=== PATIENT | male | born 1955 | race Caucasian/White ===

== ENCOUNTER 2020-06-28 19:23 | Emergency (ER) | payer MEDICARE, OTHER, SELFPAY ==
--- NOTE | 2020-06-28 19:32 | ED.EXTPRO ---
HPI - Extremity Problem General Chief complaint: Extremity Problem,Nontraumatic Stated complaint: SWOLLEN LEFT FOOT Time Seen by Provider: 06/28/20 19:42 Source: patient and RN notes reviewed Mode of arrival: ambulatory Limitations: no limitations History of Present Illness HPI Narrative: 65-year-old male with history of diabetes presents with concern for swollen, painful left foot. Reports 3-day history of symptoms. Reports today symptoms started he got a pedicure.. Reports he has been soaking the area and apple cider vinegar. MD Complaint: extremity pain and extremity swelling Related Data Home Medications Medication Instructions Recorded Confirmed calcium carbonate 600 mg calcium 600 mg PO DAILY 09/04/19 06/28/20 (1,500 mg) tablet wqpdqetcayh-uardvfwjl-ryz C-Mn 500 1 cap PO DAILY 09/04/19 06/28/20 mg-400 mg capsule multivitamin 1 tablet PO DAILY 09/04/19 06/28/20 cyanocobalamin (vitamin B-12) 1,000 mcg PO DAILY 09/05/19 06/28/20 1,000 mcg capsule diphenhydramine HCl 25 mg capsule 25 mg PO Q6H PRN 09/05/19 06/28/20 magnesium oxide-Mg AA chelate 300 1 cap PO DAILY 09/05/19 06/28/20 mg capsule sennosides 8.6 mg capsule 8.6 mg PO BID PRN 09/05/19 06/28/20 vitamin E (dl, acetate) 400 unit 400 unit PO DAILY 09/05/19 06/28/20 capsule naproxen sodium 220 mg tablet 220 mg PO Q12H PRN 12/19/19 06/28/20 Allergies Allergy/AdvReac Type Severity Reaction Status Date / Time No Known Allergies Allergy Verified 06/28/20 19:26 Review of Systems Review of Systems: Narrative: CONSTITUTIONAL: Denies malaise, chills, sweats, or fever. SKIN: Reports red, swollen, red, painful skin fifth digit of left foot and dorsal aspect of left foot MUSCULOSKELETAL: Reports painful left foot NEUROLOGIC: Denies numbness, weakness All systems reviewed & are unremarkable except as noted in HPI and below PMFSH Past Medical History Medical History (Updated 06/28/20 @ 19:51 by Najma Waldrop NP) Nocturia Rib pain on left side Vitamin B12 deficiency anemia Vitamin D deficiency, unspecified Family History Family History (Updated 06/10/19 @ 10:40 by DOCTOR UNKNOWN) Father Patient's father is , Onset Age: 79 Mother Family history of cardiovascular disease, Onset Age: 61 Social History Social History Smoking status: Never smoker Alcohol intake: current Gender identity (if verbalized by the patient): Male Comments At time of signature, agree with nursing past medical, surgical, social and family history. There is no relevant family history pertinent to the presenting complaint Exam Narrative: Exam Narrative: GENERAL: Well-appearing, well-nourished, and in no acute distress. HEAD: Normocephalic, atraumatic. EYES: PERRLA, conjunctivae clear NECK: Supple. CHEST: Speaks in full sentences. No respiratory distress. HEART: Regular rate and rhythm. Normal and equal peripheral pulses. EXTREMITIES: Left foot, digits have normal sensation, normal range of motion. 5/5 strength with digit flexion and extension. Normal sensation with sensitivity to light touch and pain. Distal pulses palpable and equal bilaterally, skin warm, dry, pink. Capillary refill less than 3 seconds. SKIN: Warm, dry, no rash. Fifth digit of left foot is erythematous, edematous, tender, erythema and edema extending to the dorsal aspect of the left foot. No open wounds are visible, however fifth digit is edematous and weeping is noted from between the fourth and fifth digits, skin is friable. NEURO: Alert and oriented x3. PSYCH: Normal mood and affect Course Course Emergency Course: Patient is aware of diagnosis, understands and agrees to treatment plan. Anticipatory guidance given. Patient agrees to follow-up as directed and is aware of reasons to seek care at the emergency department. Portions of this record may have been created with voice recognition software Vital Signs Vital signs: Vital Signs Temperature 99.6
[2020-06-28 19:37] VITALS: BP 130/80; PULSE 102; RESP 16; TEMP 37.6; O2SAT 98
== END 2020-06-28 19:57 | disposition home or self-care (01) ==
PROVIDERS: Emergency Provider Nurse Practitioner; PCP Family Medicine
DX: L03.116 Cellulitis of left lower limb (principal); D51.9 Vitamin B12 deficiency anemia, unspecified; E78.00 Pure hypercholesterolemia, unspecified; I10 Essential (primary) hypertension; K74.60 Unspecified cirrhosis of liver; K21.9 Gastro-esophageal reflux disease without esophagitis; M10.9 Gout, unspecified; E11.9 Type 2 diabetes mellitus without complications; E89.0 Postprocedural hypothyroidism
CPT/HCPCS: 99213; G0463

== ENCOUNTER 2020-07-03 08:46 | Outpatient (RCR) | payer MEDICARE, OTHER, SELFPAY ==
[2020-07-03 09:30] VITALS: BMI 38.2
--- NOTE | 2020-07-14 14:20 | PCWOUND ---
WOCNNOTE Patient called to cancel next appointment on 07-16-20 due to being on COVID isolation. he will call back to reschedule when isolation is lifted.
== END 2020-09-21 08:15 | disposition home or self-care (01) ==
LOC: ANHWOC 08:46
PROVIDERS: PCP Family Medicine; Visit Provider Family Medicine
DX: L03.116 Cellulitis of left lower limb (principal)
CPT/HCPCS: 99212; G0463

== ENCOUNTER 2021-01-21 10:36 | Outpatient (CLI) | payer MEDICARE, OTHER, SELFPAY ==
--- NOTE | 2021-01-21 10:46 | ECG_ITS ---
Measurements Intervals Marcus Rate: 77 P: AL: 0 QRS: -68 QRSD: 137 T: 7 QT: 398 QTc: 453 Interpretive Statements SINUS RHYTHM WITH FIRST DEGREE AV BLOCK LEFT AXIS DEVIATION RIGHT BUNDLE BRANCH BLOCK ABNORMAL ECG Electronically Signed On 01-21-2021 11:20:22 CDT by Emile Valverde D.O.
== END 2021-01-21 10:37 | disposition home or self-care (01) ==
LOC: ANHCARD 10:39
PROVIDERS: PCP Family Medicine; Visit Provider Family Medicine
DX: Z01.810 Encounter for preprocedural cardiovascular examination (principal); R94.31 Abnormal electrocardiogram [ECG] [EKG]
CPT/HCPCS: 93005

== ENCOUNTER 2022-01-13 12:54 | Outpatient (CLI) | payer MEDICARE, OTHER, SELFPAY ==
[2022-01-13 14:25] LABS: Anion Gap 7 mmol/L (8-16); Blood Urea Nitrogen 17 mg/dL (9-20); Calcium 9.1 mg/dL (8.4-10.2); Carbon Dioxide 28 mmol/L (22-30); Chloride 103 mmol/L (98-107); Estimated Glomerular Filt Rate > 60; Glucose 106 mg/dL (65-110); Sodium 138 mmol/L (137-145)
== END 2022-01-13 12:55 | disposition home or self-care (01) ==
LOC: ANHSURGERY 13:03
PROVIDERS: Anesthesiology; PCP Family Medicine; Visit Provider Surgery
DX: E11.9 Type 2 diabetes mellitus without complications (principal); Z01.818 Encounter for other preprocedural examination
CPT/HCPCS: 36415; 80048

== ENCOUNTER 2022-01-13 13:13 | Outpatient (CLI) | payer MEDICARE, OTHER, SELFPAY ==
[2022-01-13 14:04] LABS: Hematocrit 43.4 % (42.0-52.0); Hemoglobin 13.8 g/dL (14.0-18.0); Mean Corpuscular HGB Conc 31.8 g/dl (32-36); Mean Corpuscular Hemoglobin 27.1 pg (26-34); Mean Corpuscular Volume 85.3 fl (80-100); Mean Platelet Volume 9.6 fl (7.4-10.4); Platelet Count Result 239 k/mm3 (150-375); Red Blood Count 5.09 M/mm3 (4.6-6.20); Red Cell Distribution Width 15.3 % (11.5-14.5); White Blood Count 9.4 K/mm3 (4.5-10.0)
[2022-01-13 14:06] LABS: Add Urine Microscopic? NO; Appearance Urine Clear (Clear); Bilirubin Urine Negative (Negative); Blood Urine Negative (Negative); Color Urine Yellow (Yellow); Glucose Urine UA Negative (Negative); Ketones Urine Negative (Negative); Leukocyte Esterase Ur Negative LEU/UL (NEGATIVE); Nitrate Urine Negative (Negative); Protein Urine Negative (Negative); Specific Grav Ur 1.017 (1.001-1.035); Urobilinogen Urine Negative mg/dL (<2.0)
[2022-01-13 14:26] LABS: Alanine Aminotransferase 34 U/L (4-50); Albumin Level 4.3 g/dL (3.5-5.1); Alkaline Phosphatase 96 U/L (38-126); Aspartate Amino Transferase 40 U/L (17-59); Bilirubin,Total 0.6 mg/dL (0.2-1.3); Cholesterol 142 mg/dL (0-200); HDL Direct 25 mg/dL; Triglycerides 179 mg/dL (<150); Uric Acid 4.9 mg/dL (3.5-8.5)
[2022-01-13 14:38] LABS: LDL Cholesterol Direct 84 mg/dL
[2022-01-13 14:57] LABS: Prostate Specific Antigen 0.1 ng/mL (< OR = 4.0)
[2022-01-13 15:03] LABS: Iron 60 ug/dL (49-181)
[2022-01-13 15:05] LABS: Creatinine Urine 112.5 mg/dL
[2022-01-13 15:16] LABS: MALB Creatinine Ratio < 5.3 mg/g (0-30); Microalbumin Urine Random < 6.0 mg/L (0-16.7)
[2022-01-16 20:48] LABS: GGT 31 U/L (3-70)
[2022-01-18 12:08] LABS: Vitamin D 1,25 (OH)2 Total 44 pg/mL (18-72); Vitamin D2 1,25 (OH)2 <8 pg/mL; Vitamin D3 1,25 (OH)2 44 pg/mL
== END 2022-01-13 13:14 | disposition home or self-care (01) ==
LOC: ANHIMG 13:14 → ANHLAB 14:00
PROVIDERS: PCP Family Medicine; Visit Provider Family Medicine
DX: D51.9 Vitamin B12 deficiency anemia, unspecified (principal); E11.9 Type 2 diabetes mellitus without complications; G25.81 Restless legs syndrome; R94.5 Abnormal results of liver function studies; E78.2 Mixed hyperlipidemia; M1A.00X0 Idiopathic chronic gout, unspecified site, without tophus (tophi); E55.9 Vitamin D deficiency, unspecified; R35.1 Nocturia; E89.0 Postprocedural hypothyroidism
CPT/HCPCS: 36415; 80048; 80061; 80076; 81003; 82043; 82607; 82652; 82728; 82977; 83036; 83540; 84153; 84443; 84550; 85027

== ENCOUNTER 2022-01-19 00:59 | Day surgery (SDC) | payer MEDICARE, OTHER, SELFPAY ==
[2022-01-12 10:52] VITALS: BMI 39.6
--- NOTE | 2022-01-12 11:01 | PC.NURSE ---
Report to the Outpatient Waiting Room, entrance under the green pavilion located off [facility], at time _1100_ on date _01/19/22_. OR Time: __1 PM__. - You and your visitor will be asked a series of questions to screen for COVID 19 for your protection. - A mask is required within the hospital. One visitor will be allowed to accompany the patient into the hospital. Patients visitor will be instructed to remain with patient at all times or leave the building. We will allow the visitor to come back to the postoperative area when patient is ready. Preoperative COVID Testing Requirements: NONE Patients may have clear liquids (water, carbonated beverages, clear teas, apple juice) until 3 hours prior to surgery (1000 AM) with a maximum of 20 ounces. - No food from midnight until time of surgery Take the following medications with a SIP of water the morning of surgery: _LEVOTHYROXINE_ Medications to discontinue per DR. BASS - __CALL OFFICE REGARDING ASPIRIN__ Medications to discontinue per ANESTHESIA - ALL VITAMINS AND SUPPLEMENTS, 3 DAYS PRIOR TO SURGERY, Date to take last dose 01/15/22 Please no deodorant, or body powder the day of surgery. No jewelry (including any body piercings) or valuables the day of surgery, leave them at home. Please take a shower or bath the night before, or the morning of, surgery with an antibacterial soap. Wear comfortable, loose fitting clothing. - Jewelry must be removed prior to entering the operating room. Rings and piercings that are not removed may be cut off. - The hospital will not accept responsibility for valuables. - Please leave all valuables, including medications, at home the day of surgery. If you are going home after surgery, a licensed van driver helper must drive you home. - NO public transportation without another adult. - We recommend that an adult stay with you for 24 hours following discharge. - We also recommend that you do not drive, make important decision, drink alcoholic beverages, or take any drugs that were not prescribed by your health care provider for at least 24 hours after your discharge time. Follow any additional instructions given to you from your surgeon. Telephone instructions given to ____PT and asked if any additional questions and then verbalized understanding. Patient advised to call surgeon office or pre surgery nurse liaison [phone] if any additional questions.
--- NOTE | 2022-01-18 14:18 | WPDANESEPPF ---
Anes - Initial Pre Proc Eval Procedure: Operation Date: 01/19/22 13:00 Proposed Procedures p Excisional Biopsy Upper Back Mass - Zakia Herrera MD Date/Time: 01/18/22 14:18 Surgeon: Zakia Herrera MD Pre Op Diagnosis: upper back mass Patient Data Age: 66 Gender: M Height: 1.85 m Weight: 136.36 kg Allergies Allergy/AdvReac Type Severity Reaction Status Date / Time No Known Allergies Allergy Verified 01/12/22 10:46 Home Medications Medication Instructions Recorded Confirmed Type calcium carbonate 600 mg calcium 600 mg PO QAM 09/04/19 01/19/22 History (1,500 mg) tablet ojiflqlohgo-bjdcrtegs-bkn C-Mn 500 1 cap PO QAM 09/04/19 01/19/22 History mg-400 mg capsule multivitamin 1 tablet PO QAM 09/04/19 01/19/22 History cyanocobalamin (vitamin B-12) 1,000 mcg PO QAM 09/05/19 01/19/22 History 1,000 mcg capsule magnesium oxide-magnesium amino 1 cap PO DAILY 09/05/19 01/19/22 History acid chelate 300 mg capsule sennosides 8.6 mg capsule 8.6 mg PO BID PRN 09/05/19 01/19/22 History vitamin E (dl, acetate) 180 mg 400 unit PO QAM 09/05/19 01/19/22 History (400 unit) capsule pen needle, diabetic 32 gauge x #50 each 12/19/19 01/11/22 Rx 1/4 aspirin [Aspirin Low Dose] 81 mg PO HS 07/03/20 01/19/22 History blood sugar diagnostic #100 ea 12/29/20 01/11/22 Rx lancets #100 ea 12/29/20 01/11/22 Rx cholecalciferol (vitamin D3) 1,250 50,000 unit PO WEEKLY #12 cap 02/04/21 01/19/22 Rx mcg (50,000 unit) capsule metformin 500 mg tablet,extended 1,000 mg PO BID #360 tablet 02/10/21 01/19/22 Rx release 24 hr ropinirole 0.25 mg tablet 0.25 mg PO BID #60 tablet 06/22/21 01/19/22 Rx Mucinex 1,200 mg PO BID 01/12/22 01/19/22 History allopurinol 300 mg PO QAM 01/12/22 01/19/22 History levothyroxine 150 mcg PO QAM 01/12/22 01/19/22 History lisinopril-hydrochlorothiazide 1 tablet PO QAM 01/12/22 01/19/22 History pantoprazole 40 mg PO HS 01/12/22 01/19/22 History simvastatin 20 mg PO HS 01/12/22 01/19/22 History triamcinolone acetonide 1 applic TOPICAL BID PRN 01/12/22 01/19/22 History ferrous sulfate 325 mg (65 mg 325 mg PO DAILY 01/14/22 01/19/22 History iron) tablet,delayed release hydrocodone-acetaminophen 1 tablet PO Q6H PRN #10 tablet 01/19/22 Rx Patient hx anesthesia problems: none Family hx anesthesia problems: none Results Review: All pre-operative results and documents have been reviewed as part of the pre-operative evaluation. [facility] Past Medical History Medical History Acute non-recurrent maxillary sinusitis BMI 36.0-36.9,adult BMI 38.0-38.9,adult Body mass index (BMI) of 40.1 to 44.9 in adult Cellulitis of left foot COVID-19 (12/23/21) tested positive 12/27/2021 Eczema Encounter for preoperative assessment for noncoronary cardiac surgery Essential (primary) hypertension GERD (gastroesophageal reflux disease) Gout uric acid level is normal at 4.9 on 01/13/2022 With allopurinol Mixed hyperlipidemia total cholesterol 142, triglycerides 179, HDL 25 and LDL 84 on 01/13/2022. Nocturia PSA 0.1 on 01/13/2022. Postoperative hypothyroidism TSH therapeutic at 1.25 on 01/13/2022 Restless legs syndrome Iron 60 with ferritin 19.3 on 01/13/2022 Rib pain on left side Sebaceous cyst midline upper back, 2.5 cm Type 2 diabetes mellitus without complication, without long-term current use of insulin glucose 106 with hemoglobin A1c 7.0 And urine microalbumin ratio less than 5.3 on 01/13/2022. Vitamin B12 deficiency anemia 887 on 01/13/2022 With hemoglobin 13.8. Vitamin D deficiency, unspecified Surgical History Surgical History H/O cervical spine surgery H/O shoulder surgery H/O umbilical hernia repair History of cholecystectomy History of hemorrhoidectomy History of lumbar surgery History of thyroidectomy Family History Family History (Reviewed 01/19/22 @ 12:34 by Matthew Dhillon
[2022-01-19 11:19] VITALS: BP 152/92; PULSE 89; RESP 20; TEMP 36.5; O2SAT 98
--- NOTE | 2022-01-19 11:19 | WPDHPUPDATE1 ---
History and Physical Update Update Date/Time: 01/19/22 11:19 History and Physical has been reviewed, including an updated exam of the patient. There are NO changes in the patient's condition. Risks, benefits, and alternatives have been discussed and questions answered. Patient agrees to proceed with procedure.
[2022-01-19] MEDS: LACTATED RINGERS 1,000 ML 30 ML IV CONT (11:45)
[2022-01-19 11:47] LABS: Glucose Point of Care 144 mg/dl (65-105)
--- NOTE | 2022-01-19 12:34 | WPDANESEPPF ---
Anes - Initial Pre Proc Eval Procedure: Operation Date: 01/19/22 13:00 Proposed Procedures p Excisional Biopsy Upper Back Mass - Zakia Herrera MD Date/Time: 01/19/22 12:34 Surgeon: Zakia Herrera MD Pre Op Diagnosis: upper back mass Patient Data Age: 66 Gender: M Height: 1.85 m Weight: 137.2 kg Last Vital Signs Temp 36.5 C 01/19/22 11:19 Pulse 89 01/19/22 11:19 Resp 20 01/19/22 11:19 BP 152/92 H 01/19/22 11:19 Pulse Ox 98 01/19/22 11:19 Allergies Allergy/AdvReac Type Severity Reaction Status Date / Time No Known Allergies Allergy Verified 01/12/22 10:46 Home Medications Medication Instructions Recorded Confirmed Type calcium carbonate 600 mg calcium 600 mg PO QAM 09/04/19 01/19/22 History (1,500 mg) tablet ejxjgjdgdic-edvytqgng-gbw C-Mn 500 1 cap PO QAM 09/04/19 01/19/22 History mg-400 mg capsule multivitamin 1 tablet PO QAM 09/04/19 01/19/22 History cyanocobalamin (vitamin B-12) 1,000 mcg PO QAM 09/05/19 01/19/22 History 1,000 mcg capsule magnesium oxide-magnesium amino 1 cap PO DAILY 09/05/19 01/19/22 History acid chelate 300 mg capsule sennosides 8.6 mg capsule 8.6 mg PO BID PRN 09/05/19 01/19/22 History vitamin E (dl, acetate) 180 mg 400 unit PO QAM 09/05/19 01/19/22 History (400 unit) capsule pen needle, diabetic 32 gauge x #50 each 12/19/19 01/11/22 Rx 1/4 aspirin [Aspirin Low Dose] 81 mg PO HS 07/03/20 01/19/22 History blood sugar diagnostic #100 ea 12/29/20 01/11/22 Rx lancets #100 ea 12/29/20 01/11/22 Rx cholecalciferol (vitamin D3) 1,250 50,000 unit PO WEEKLY #12 cap 02/04/21 01/19/22 Rx mcg (50,000 unit) capsule metformin 500 mg tablet,extended 1,000 mg PO BID #360 tablet 02/10/21 01/19/22 Rx release 24 hr ropinirole 0.25 mg tablet 0.25 mg PO BID #60 tablet 06/22/21 01/19/22 Rx allopurinol 300 mg PO QAM 01/12/22 01/19/22 History guaifenesin [Mucinex] 1,200 mg PO BID 01/12/22 01/19/22 History levothyroxine 150 mcg PO QAM 01/12/22 01/19/22 History lisinopril-hydrochlorothiazide 1 tablet PO QAM 01/12/22 01/19/22 History pantoprazole 40 mg PO HS 01/12/22 01/19/22 History simvastatin 20 mg PO HS 01/12/22 01/19/22 History triamcinolone acetonide 1 applic TOPICAL BID PRN 01/12/22 01/19/22 History ferrous sulfate 325 mg (65 mg 325 mg PO DAILY 01/14/22 01/19/22 History iron) tablet,delayed release Laboratory Tests 01/19/22 11:45 POC Capillary Glucose 144 mg/dl H mg/dl (65-105) Patient hx anesthesia problems: none Family hx anesthesia problems: none Results Review: All pre-operative results and documents have been reviewed as part of the pre-operative evaluation. [facility] Past Medical History Medical History Acute non-recurrent maxillary sinusitis BMI 36.0-36.9,adult BMI 38.0-38.9,adult Body mass index (BMI) of 40.1 to 44.9 in adult Cellulitis of left foot COVID-19 (12/23/21) tested positive 12/27/2021 Eczema Encounter for preoperative assessment for noncoronary cardiac surgery Essential (primary) hypertension GERD (gastroesophageal reflux disease) Gout uric acid level is normal at 4.9 on 01/13/2022 With allopurinol Mixed hyperlipidemia total cholesterol 142, triglycerides 179, HDL 25 and LDL 84 on 01/13/2022. Nocturia PSA 0.1 on 01/13/2022. Postoperative hypothyroidism TSH therapeutic at 1.25 on 01/13/2022 Restless legs syndrome Iron 60 with ferritin 19.3 on 01/13/2022 Rib pain on left side Sebaceous cyst midline upper back, 2.5 cm Type 2 diabetes mellitus without complication, without long-term current use of insulin glucose 106 with hemoglobin A1c 7.0 And urine microalbumin ratio less than 5.3 on 01/13/2022. Vitamin B12 deficiency anemia 887 on 01/13/2022 With hemoglobin 13.8. Vitamin D deficiency, unspecified Surgical History Surgical History H/O cervical spine surgery H/O shoulder surgery H/O u
[2022-01-19] MEDS: ceFAZolin 3 GM/D5W 100 ML 100 ML IVPB (13:00)
--- NOTE | 2022-01-19 13:39 | W.PM.PROC2 ---
Procedure Note - Detailed Date of Procedure 01/19/22 Pre-op Diagnosis upper back mass Post-op Diagnosis Same Procedure Performed Excisional biopsy cystic mass mid upper back measuring approximately 3.5 x 3 cm Surgeon Zakia Herrera MD Anesthesia MAC and Local Indications 66-year-old male with growing upper back mass and tenderness over last few months Findings 3.5 x 3 cm cystic back mass most consistent with sebaceous cyst Description of Procedure The patient was taken to the operating room and placed in the supine position. After adequate induction of MAC anesthesia, the patient was prepped and draped in the normal sterile fashion. A time-out was then done to verify the patient's identity, as well as the procedure being performed. I began by localizing the area in and around this cystic mass in the mid upper back. Once locally anesthetized, I made a elliptical incision around this mass, taking a piece of dermis that looked like it had a tract to the cyst. I then took the incision down through the dermis into the subcutaneous tissue. The cystic mass was located within the subcutaneous tissue and was densely adhesed to the surrounding tissue. I was able to both bluntly and sharply dissect these adhesions away. I was then able to remove this cystic mass in full. The mass measured approximately 3.5 x 3 cm and was most consistent with a sebaceous cyst. The mass will be sent to pathology for further review. I then copiously irrigated the cavity. Hemostasis was noted and no other pathology was seen. I then closed the subcutaneous tissue with 3-0 Vicryl suture. The skin was closed with 4-0 Monocryl subcuticular suture. The patient tolerated the procedure well and will be sent to the recovery room in stable condition. Estimated Blood Loss 5 Drains No Packing No Pathology Yes Complications No immediate complications Condition Stable Disposition PACU
[2022-01-19 13:45] VITALS: BP 126/81; PULSE 84; RESP 16; O2SAT 96
[2022-01-19 13:49] LABS: Glucose Point of Care 125 mg/dl (65-105)
[2022-01-19 14:15] VITALS: BP 146/96; PULSE 80; RESP 16
== END 2022-01-19 14:56 | disposition home or self-care (01) ==
PROVIDERS: PCP Family Medicine; Visit Provider Surgery
PROC: (CPT 11406; principal; 2022-01-19 13:00)
DX: L72.0 Epidermal cyst (principal); E78.2 Mixed hyperlipidemia; I10 Essential (primary) hypertension; K21.9 Gastro-esophageal reflux disease without esophagitis; M10.9 Gout, unspecified; E89.0 Postprocedural hypothyroidism; G25.81 Restless legs syndrome; E11.9 Type 2 diabetes mellitus without complications; D51.3 Other dietary vitamin B12 deficiency anemia; E55.9 Vitamin D deficiency, unspecified; R35.1 Nocturia; Z86.16 Personal history of COVID-19; Z87.891 Personal history of nicotine dependence; E66.01 Morbid (severe) obesity due to excess calories; Z68.39 Body mass index [BMI] 39.0-39.9, adult; Z79.82 Long term (current) use of aspirin; Z79.84 Long term (current) use of oral hypoglycemic drugs
CPT/HCPCS: 11406; 12032; 82948; 88304; J0690; J2250; J2704; J3010; J7120

== ENCOUNTER 2023-01-23 12:27 | Outpatient (CLI) | payer MEDICARE, OTHER, SELFPAY ==
--- NOTE | ~2023-01-23 | CT_ITS ---
EXAMINATION: CT abdomen pelvis wo con DATE: 01/23/2023 13:13 INDICATION: Low back pain. History of renal stone. History of fatty liver. TECHNIQUE: Computed tomography (CT) of the abdomen and pelvis was performed without intravenous contr ast. Automated exposure control and iterative reconstruction technique were employed. Exam dose: 150 5.78 mGy-cm total exam DLP. COMPARISON: December 06, 2018 CT abdomen pelvis FINDINGS: The lung bases are clear of infiltrate or consolidation. Normal heart size. No pericardial or pleural effusion. Status post cholecystectomy. No hepatic, splenic, pancreatic, adrenal space-occupying mass lesion. St able approximately 2 cm right renal cyst. No urinary tract calculus or hydroureteronephrosis. The uri nary bladder is unremarkable. There is prostate enlargement and calcification. There is atherosclerotic calcification but normal caliber of the abdominal aorta. No intraperitoneal or retroperitoneal or pelvic mass lesion or adenopathy or ascites. Normal appendix. There are innumerable diverticula of the sigmoid and descending colon and to a lesser extent transver se colon; no CT evidence of diverticulitis. No bowel obstruction, bowel wall thickening, pneumatosis or intraperitoneal free air. Status post posterior and interbody spinal fusion at L4-S1. Diffuse idiopathic skeletal hyperostosis of the thoracolumbar spine. IMPRESSION: Status post cholecystectomy Normal appendix Diverticulosis of the colon; no evidence of diverticulitis Diffuse idiopathic skeletal hyperostosis of the thoracolumbar spine Interval posterior and interbody spinal fusion at L4-S1 since December 06, 2018 Reviewed, dictated and finalized at [facility]. Reviewed, dictated and finalized at [facility].
== END 2023-01-23 12:28 | disposition home or self-care (01) ==
LOC: ANHIMG 12:29
PROVIDERS: PCP Family Medicine; Visit Provider Family Medicine
DX: R94.5 Abnormal results of liver function studies (principal); M54.41 Lumbago with sciatica, right side; M54.42 Lumbago with sciatica, left side; Z90.49 Acquired absence of other specified parts of digestive tract; K57.30 Diverticulosis of large intestine without perforation or abscess without bleeding; Z98.1 Arthrodesis status
CPT/HCPCS: 74176

== ENCOUNTER 2023-02-17 00:49 | Day surgery (SDC) | payer MEDICARE, OTHER, SELFPAY ==
[2023-02-09 14:37] VITALS: BMI 39.4
[2023-02-17 08:20] VITALS: BMI 38.9
[2023-02-17 08:37] LABS: Glucose Point of Care 143 mg/dl (65-105)
[2023-02-17] MEDS: LACTATED RINGERS 1,000 ML 150 ML IV CONT (08:49)
--- NOTE | 2023-02-17 08:52 | WPDANESEPPF ---
Anes - Initial Pre Proc Eval Procedure: Operation Date: 02/17/23 09:30 Proposed Procedures p Esophagogastroduodenoscopy & Colonoscopy - Sawyer Aguila MD Date/Time: 02/17/23 08:52 Surgeon: Sawyer Aguila MD Pre Op Diagnosis: hx colon polyps, IBS-D, GERD Patient Data Age: 67 Gender: M Height: 1.85 m Weight: 133.8 kg Allergies Allergy/AdvReac Type Severity Reaction Status Date / Time No Known Allergies Allergy Verified 02/09/23 14:29 Home Medications Medication Instructions Recorded Confirmed Type calcium carbonate 600 mg calcium 1,200 mg PO QAM 09/04/19 02/09/23 History (1,500 mg) tablet multivitamin 1 tablet PO QAM 09/04/19 02/09/23 History cyanocobalamin (vitamin B-12) 1,000 mcg PO QAM 09/05/19 02/09/23 History 1,000 mcg capsule sennosides 8.6 mg capsule (senna) 8.6 mg PO BID PRN Constipation 09/05/19 02/09/23 History vitamin E (dl, acetate) 180 mg 400 unit PO QAM 09/05/19 02/09/23 History (400 unit) capsule pen needle, diabetic 32 gauge x #50 ea 12/19/19 02/09/23 Rx 11/02 (Novofine 32) aspirin 81 mg tablet,delayed 81 mg PO HS 07/03/20 02/09/23 History release (Jaya Low Dose Aspirin) blood sugar diagnostic (OneTouch #100 ea 12/29/20 02/09/23 Rx Ultra Blue Test Strip) lancets (OneTouch UltraSoft #100 ea 12/29/20 02/09/23 Rx Lancets) guaifenesin 1,200 mg tablet, 1,200 mg PO BID 01/12/22 02/09/23 History extended release 12 hr (Mucinex) cholecalciferol (vitamin D3) 1,250 50,000 unit PO WEEKLY #12 caps 06/27/22 02/09/23 Rx mcg (50,000 unit) capsule triamcinolone acetonide 0.5 % 1 applic topical BID PRN Dry Skin 07/06/22 02/09/23 Rx topical cream #60 grams pantoprazole 40 mg tablet,delayed 40 mg PO QAM #90 tabs 08/16/22 02/09/23 Rx release allopurinol 300 mg tablet 300 mg PO QAM #90 tabs 12/19/22 02/09/23 Rx levothyroxine 150 mcg tablet 150 mcg PO DAILY #90 tabs 12/21/22 02/09/23 Rx metformin 500 mg tablet,extended 1,000 mg PO BID #360 tabs 12/21/22 02/09/23 Rx release 24 hr simvastatin 20 mg tablet 20 mg PO HS #90 tabs 12/21/22 02/09/23 Rx lisinopril 40 mg tablet 40 mg PO DAILY #90 tabs 01/23/23 02/09/23 Rx tramadol 50 mg tablet 50 mg PO Q6H PRN pain #60 tabs 01/25/23 02/09/23 Rx sodium,potassium,mag sulfates 17.5 See Rx Instructions PO .COMPLEX 01/26/23 02/09/23 Rx gram-3.13 gram-1.6 gram oral soln #354 mL (Suprep Bowel Prep Kit) duloxetine 30 mg capsule,delayed 30 mg PO DAILY #90 caps 02/14/23 Rx release (Cymbalta) Laboratory Tests 02/17/23 08:35 POC Capillary Glucose 143 mg/dl H mg/dl (65-105) Patient hx anesthesia problems: none Family hx anesthesia problems: none Results Review: All pre-operative results and documents have been reviewed as part of the pre-operative evaluation. 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 COVID-19 (12/23/21) tested positive 12/27/2021 Eczema Encounter for preoperative assessment for noncoronary cardiac surgery Encounter for prostate cancer screening Essential (primary) hypertension GERD (gastroesophageal reflux disease) History of small area of Rushing's esophagitis on EGD on 03/03/2017. Gout uric acid level is normal at 4.9 on 01/13/2022 With allopurinol Irritable bowel syndrome with diarrhea Mixed hyperlipidemia total cholesterol 142, triglycerides 179, HDL 25 and LDL 84 on 01/13/2022. Cholesterol 146, HDL 38, triglycerides 155, LDL 83 with AST 57 and ALT 82 on 01/27/2023. Morbid obesity with BMI of 40.0-44.9, adult Nocturia PSA 0.1 on 01/13/2022. Postoperative hypothyroidism TSH therapeutic at 1.25 on 01/13/2022. thyroidectomy for goit
--- NOTE | 2023-02-17 09:01 | PM.HPGS ---
History of Present Illness History of Present Illness Consent: Risks, benefits, and alternatives have been discussed and questions answered. Patient agrees to proceed with procedure. Chief complaint: hx colon polyps, IBS-D, GERD Narrative: Teo Martinez is a 67 year old male Presents for colonoscopy an EGD. Patient states his been more than 10 years since last colonoscopy. He reports that he may have had colon polyps but is somewhat unsure about this. No old records are available for review. Additionally patient complains of ongoing acid reflux disease. He states this is very stable as long as he takes pantoprazole on a daily basis. He promptly notices regurgitation and heartburn if he misses a day of this medication. Patient referred today for endoscopy. Patient reports he has had many back and neck surgeries in the past. Review of Systems Review of Systems: Review of systems noncontributory. 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 COVID-19 (12/23/21) tested positive 12/27/2021 Eczema Encounter for preoperative assessment for noncoronary cardiac surgery Encounter for prostate cancer screening Essential (primary) hypertension GERD (gastroesophageal reflux disease) History of small area of Rushing's esophagitis on EGD on 03/03/2017. Gout uric acid level is normal at 4.9 on 01/13/2022 With allopurinol Irritable bowel syndrome with diarrhea Mixed hyperlipidemia total cholesterol 142, triglycerides 179, HDL 25 and LDL 84 on 01/13/2022. Cholesterol 146, HDL 38, triglycerides 155, LDL 83 with AST 57 and ALT 82 on 01/27/2023. Morbid obesity with BMI of 40.0-44.9, adult Nocturia PSA 0.1 on 01/13/2022. Postoperative hypothyroidism TSH therapeutic at 1.25 on 01/13/2022. thyroidectomy for goiter which was benign 08/12/2014. TSH 2.1 with free T4 1.5 on 01/27/2023. Rash Restless legs syndrome Iron 60 with ferritin 19.3 on 01/13/2022 Rib pain on left side Sebaceous cyst midline upper back, 2.5 cm Type 2 diabetes mellitus without complication, without long-term current use of insulin glucose 106 with hemoglobin A1c 7.0 And urine microalbumin ratio less than 5.3 on 01/13/2022. Glucose 172 with hemoglobin A1c 8.1 with microalbumin ratio of 1 on 01/27/2023. Vitamin B12 deficiency anemia 887 on 01/13/2022 With hemoglobin 13.8. Level normal at 901 with hemoglobin 14.9 on 01/27/2023. Vitamin D deficiency, unspecified Level normal at 30 on 01/27/2023. Surgical History Surgical History (Updated 02/02/22 @ 09:29 by Selvin Ernandez MA) H/O cervical spine surgery H/O excision of mass upper back mass 01/19/22 H/O shoulder surgery H/O umbilical hernia repair History of cholecystectomy History of hemorrhoidectomy History of lumbar surgery History of thyroidectomy Family History Family History Father Patient's father is , Onset Age: 79 Emphysema lung Hypertension Mother Family history of cardiovascular disease, Onset Age: 61 Acute myocardial infarction Social History Social History Smoking packs per day: 1 Smoking cigarettes per day: 20.0 Years smoked: 15 Smoking pack-years: 15.00 Smoking status: Former smoker Tobacco type: cigarettes Smoking end date: 10/30/76 Alcohol intake: current Alcohol use details: 2-4 PER MONTH Substance use: never Substance use type: does not use Lack of Transportation: No Lack of Food: Never True Current Housing: I Have Housing Concerned About Future Housing: No
--- NOTE | 2023-02-17 09:21 | SUR.OPER ---
EGD completed at 920 colonoscopy started at 0922
[2023-02-17 09:54] VITALS: BP 93/61; PULSE 73; RESP 21; O2SAT 94
[2023-02-17 10:04] VITALS: BP 96/64; PULSE 85; RESP 25; O2SAT 98
[2023-02-17 10:14] VITALS: BP 112/76; PULSE 77; RESP 19; O2SAT 99
== END 2023-02-17 10:26 | disposition home or self-care (01) ==
PROVIDERS: PCP Family Medicine; Visit Provider Internal Medicine Gastroenterology
PROC: 0DJ08ZZ Inspection of Upper Intestinal Tract, Via Natural or Artificial Opening Endoscopic (ICD-10-PCS; CPT 43235; principal; 2023-02-17 09:30)
DX: Z12.11 Encounter for screening for malignant neoplasm of colon (principal); K64.8 Other hemorrhoids; K57.30 Diverticulosis of large intestine without perforation or abscess without bleeding; D12.3 Benign neoplasm of transverse colon; D12.5 Benign neoplasm of sigmoid colon; K21.9 Gastro-esophageal reflux disease without esophagitis; K31.89 Other diseases of stomach and duodenum; E78.2 Mixed hyperlipidemia; E11.9 Type 2 diabetes mellitus without complications; E89.0 Postprocedural hypothyroidism; E55.9 Vitamin D deficiency, unspecified; D51.9 Vitamin B12 deficiency anemia, unspecified; K58.0 Irritable bowel syndrome with diarrhea; Z79.82 Long term (current) use of aspirin; Z79.84 Long term (current) use of oral hypoglycemic drugs; Z87.891 Personal history of nicotine dependence
CPT/HCPCS: 45385; 43239; 82948; 88305; J2704; J7120

== ENCOUNTER 2023-07-21 10:12 | Emergency (ER) | payer MEDICARE, OTHER, SELFPAY ==
[2023-07-21 10:21] VITALS: BP 152/79; PULSE 84; RESP 18; TEMP 36.5; O2SAT 100
--- NOTE | 2023-07-21 10:37 | ED.SKABFB ---
HPI - Skin/Abscess/Foreign Bdy General Chief complaint: Skin/Abscess/Foreign Body Stated complaint: Middle Finger Rt Hand Time Seen by Provider: 07/21/23 10:30 Source: patient and RN notes reviewed Mode of arrival: ambulatory Limitations: dementia History of Present Illness HPI narrative: 68-year-old male presents with concern for redness, swelling, tenderness to the distal 3rd digit of the right hand. Reports he noticed it about 3 days ago, his tried to drain it without success. MD complaint: other (Redness) Related Data Home Medications Medication Instructions Recorded Confirmed calcium carbonate 600 mg calcium 1,200 mg PO QAM 09/04/19 07/21/23 (1,500 mg) tablet multivitamin 1 tablet PO QAM 09/04/19 07/21/23 cyanocobalamin (vitamin B-12) 1,000 mcg PO QAM 09/05/19 07/21/23 1,000 mcg capsule sennosides 8.6 mg capsule (senna) 8.6 mg PO BID PRN Constipation 09/05/19 07/21/23 vitamin E (dl, acetate) 180 mg 400 unit PO QAM 09/05/19 07/21/23 (400 unit) capsule aspirin 81 mg tablet,delayed 81 mg PO HS 07/03/20 07/21/23 release (Jaya Low Dose Aspirin) Allergies Allergy/AdvReac Type Severity Reaction Status Date / Time No Known Allergies Allergy Verified 07/21/23 10:13 Review of Systems Review of Systems: CONSTITUTIONAL: Denies malaise, chills, sweats, or fever. SKIN: Reports redness, swelling, tenderness to the distal 3rd digit of the right hand. Denies purulent drainage, vesicles, bullae, numbness, pain beyond proportion MUSCULOSKELETAL: Denies joint pain or myalgia. NEUROLOGIC: Denies headache. 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 COVID-19 (12/23/21) tested positive 12/27/2021 Eczema Encounter for preoperative assessment for noncoronary cardiac surgery Encounter for prostate cancer screening Essential (primary) hypertension GERD (gastroesophageal reflux disease) History of small area of Rushing's esophagitis on EGD on 03/03/2017. EGD 02/17/2023 with 2 cm segment of Rushing's with biopsies taken. Gout uric acid level is normal at 4.9 on 01/13/2022 With allopurinol Irritable bowel syndrome with diarrhea Mixed hyperlipidemia total cholesterol 142, triglycerides 179, HDL 25 and LDL 84 on 01/13/2022. Cholesterol 146, HDL 38, triglycerides 155, LDL 83 with AST 57 and ALT 82 on 01/27/2023. Morbid obesity with BMI of 40.0-44.9, adult Nocturia PSA 0.1 on 01/13/2022. Postoperative hypothyroidism TSH therapeutic at 1.25 on 01/13/2022. thyroidectomy for goiter which was benign 08/12/2014. TSH 2.1 with free T4 1.5 on 01/27/2023. Rash Restless legs syndrome Iron 60 with ferritin 19.3 on 01/13/2022 Rib pain on left side Sebaceous cyst midline upper back, 2.5 cm Type 2 diabetes mellitus without complication, without long-term current use of insulin glucose 106 with hemoglobin A1c 7.0 And urine microalbumin ratio less than 5.3 on 01/13/2022. Glucose 172 with hemoglobin A1c 8.1 with microalbumin ratio of 1 on 01/27/2023. Vitamin B12 deficiency anemia 887 on 01/13/2022 With hemoglobin 13.8. Level normal at 901 with hemoglobin 14.9 on 01/27/2023. Vitamin D deficiency, unspecified Level normal at 30 on 01/27/2023. Surgical History Surgical History (Updated 02/02/22 @ 09:29 by Selvin Ernandez MA) H/O cervical spine surgery H/O excision of mass upper back mass 01/19/22 H/O shoulder surgery H/O umbilical hernia repair History of cholecystectomy History of hemorrhoidectomy History of lumbar surgery History of thyroidectomy Family History Family History (Reviewed 01/19/22
== END 2023-07-21 10:47 | disposition home or self-care (01) ==
PROVIDERS: Emergency Provider Nurse Practitioner; PCP Family Medicine
DX: L03.011 Cellulitis of right finger (principal); Z87.891 Personal history of nicotine dependence; K21.9 Gastro-esophageal reflux disease without esophagitis; M10.9 Gout, unspecified; E89.0 Postprocedural hypothyroidism; E78.2 Mixed hyperlipidemia; E66.01 Morbid (severe) obesity due to excess calories; Z68.26 Body mass index [BMI] 26.0-26.9, adult; G25.81 Restless legs syndrome; E11.9 Type 2 diabetes mellitus without complications; Z79.84 Long term (current) use of oral hypoglycemic drugs; D51.9 Vitamin B12 deficiency anemia, unspecified; E55.9 Vitamin D deficiency, unspecified; Z86.16 Personal history of COVID-19; Z79.82 Long term (current) use of aspirin
CPT/HCPCS: 10060; 99213; G0463

== ENCOUNTER 2023-08-16 11:11 | Outpatient (CLI) | payer MEDICARE, OTHER, SELFPAY ==
--- NOTE | 2023-08-16 11:24 | ECG_ITS ---
Measurements Intervals Coy Rate: 78 P: -33 RI: 185 QRS: -68 QRSD: 132 T: 4 QT: 402 QTc: 461 Interpretive Statements SINUS RHYTHM WITH FREQUENT VENTRICULAR PREMATURE COMPLEXES INTRAVENTRICULAR CONDUCTION DELAY [130+ ms QRS DURATION] CANNOT RULE OUT sEPTAL MYOCARDIAL INFARCTION , PROBABLY OLD [40+ ms Q WAVE IN V1/V2] CANNOT RULE OUT iNFERIOR MYOCARDIAL INFARCTION , PROBABLY OLD [40+ ms Q WAVE AND/OR ST/T ABNORMALITY IN II/aVF] ABNORMAL ECG COMPARED TO ECG 01/21/2021 10:59:03 INTRAVENTRICULAR CONDUCTION DELAY NOW PRESENT MYOCARDIAL INFARCT FINDING NOW PRESENT Electronically Signed On 08-16-2023 18:29:58 CDT by Curry Stewart M.D.
== END 2023-08-16 11:12 | disposition home or self-care (01) ==
PROVIDERS: PCP Family Medicine; Visit Provider Family Medicine
DX: R00.2 Palpitations (principal); I45.9 Conduction disorder, unspecified; I21.9 Acute myocardial infarction, unspecified
CPT/HCPCS: 93005

== ENCOUNTER 2024-10-27 16:17 | Emergency (ER) | payer MEDICARE, OTHER, SELFPAY ==
--- NOTE | ~2024-10-27 | XR_ITS ---
CHEST RADIOGRAPH, PA AND LATERAL CLINICAL HISTORY: cough . COMPARISON: 04/13/2014 TECHNIQUE: PA and lateral views of the chest. FINDINGS The cardiomediastinal silhouette is unremarkable. The lungs are clear. Visualized osseous structures and soft tissues are unremarkable. IMPRESSION: No focal infiltrate or effusion. Reviewed, dictated and finalized at location A. [employer]
[2024-10-27 16:20] VITALS: BP 136/68; PULSE 89; RESP 18; TEMP 36.8; O2SAT 96
--- NOTE | 2024-10-27 17:03 | ED_ITS ---
HPI - General Adult General Chief complaint: Upper Respiratory Infection Stated complaint: cough Time Seen by Provider: 10/27/24 16:51 History of Present Illness HPI narrative: This is a 69-year-old male presenting ED with cough. Patient was recently on a cruise. Afterwards he developed a persistent cough. It is dry. He has not had fevers chest pain or difficulty breathing. No nausea or vomiting. He does have some diarrhea. Related Data Home Medications ?Medication ?Instructions ?Recorded ?Confirmed ?Last Taken ?Type calcium carbonate 1,200 mg PO QAM 09/04/19 09/04/24 01/16/22 History multivitamin 1 tablet PO QAM 09/04/19 09/04/24 01/16/22 History cyanocobalamin (vitamin B-12) 1,000 mcg PO QAM 09/05/19 09/04/24 01/16/22 History 1,000 mcg capsule sennosides 8.6 mg capsule (senna) 8.6 mg PO BID PRN Constipation 09/05/19 09/04/24 01/16/22 History aspirin 81 mg tablet,delayed 81 mg PO HS 07/03/20 09/04/24 01/16/22 History release (Jaya Low Dose Aspirin) amlodipine 5 mg tablet 5 mg PO DAILY 02/05/24 09/04/24 Unknown History metoprolol succinate 25 mg 25 mg PO DAILY 02/05/24 09/04/24 Unknown History tablet,extended release 24 hr semaglutide 2 mg/dose (8 mg/3 mL) 2 mg subcut WEEKLY 09/04/24 09/04/24 Unknown History subcutaneous pen injector (Ozempic) Allergies Allergy/AdvReac Type Severity Reaction Status Date / Time No Known Allergies Allergy Verified 07/21/23 10:13 [facility] Past Medical History Medical History BMI 37.0-37.9, adult Low ferritin level (08/30/24) iron 81 with 19% saturation and ferritin 23 with goal greater than 75 on 08/30/2024. Screening for diabetic retinopathy no retinopathy on 08/20/2024. Obesity (BMI 30-39.9) Palpitation (~06/2023) Normal myocardial PET /CT scan 10/26/2023. ablation for ventricular arrhythmia December, with resolution of symptoms. At moderate risk for fall (~01/23/23) Irritable bowel syndrome with diarrhea Encounter for prostate cancer screening PSA 0.32 on 01/31/2024. 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 Rash Morbid obesity with BMI of 40.0-44.9, adult Gout uric acid level is normal at 4.9 on 01/13/2022 With allopurinol. Level normal at 5.0 on 08/12/2023. Sebaceous cyst midline upper back, 2.5 cm COVID-19 (12/23/21) tested positive 12/27/2021 Acute non-recurrent maxillary sinusitis Restless legs syndrome Iron 60 with ferritin 19.3 on 01/13/2022. Iron 81 with 19% saturation and ferritin 23 on 08/30/2024. Encounter for preoperative assessment for noncoronary cardiac surgery BMI 36.0-36.9,adult BMI 38.0-38.9,adult Eczema Cellulitis of left foot Nocturia PSA 0.1 on 01/13/2022. Vitamin D deficiency, unspecified Level normal at 30 on 01/27/2023. Vitamin B12 deficiency anemia 887 on 01/13/2022 With hemoglobin 13.8. Level normal at 901 with hemoglobin 14.9 on 01/27/2023. Level normal at 1148 with hemoglobin 14.9 on 01/31/2024. Level normal at 964 on 08/30/2024. Essential (primary) hypertension GERD (gastroesophageal reflux disease) History of small area of Rushing's esophagitis on EGD on 03/03/2017. EGD 02/17/2023 with 2 cm segment of Rushing's with biopsies taken. Mixed hyperlipidemia total cholesterol 142, triglycerides 179, HDL 25 and LDL 84 on 01/13/2022. Cholesterol 146, HDL 38, triglycerides 155, LDL 83 with AST 57 and ALT 82 on 01/27/2023. cholesterol 187, triglycerides 187, HDL 35, LDL 122 with ratio 5.3 on 01/31/2024. Cholesterol 93, triglycerides 125, HDL 31, LDL 41 with ratio 3.0 on 08/30/2024. Postoperative hypothyroidism TSH therapeutic at 1.25 on 01/13/2022. thyroidectomy for goiter which was benign 08/12/2014. TSH 2.1 with free T4 1.5 on 01/27/2023. Type 2 diabetes mellitus without complication, without long-term current use of insulin glucose 106 with hemoglobin A1c 7.0 And urine microalbumin ratio less than 5.3 on 01/13/2022. Glucose 172 with hemoglobin A1c 8.1 with microalbumin ratio of 1 on 01/27/2023. Glucose 149 with hemoglobin A1c 7.2 on 08/12/2023. Glucose 197 with hemoglobin A1c 9.0 with urine microalbumin ratio of 113 on 01/31/2024. Glucose 129 with hemoglobin A1c 6.4 and GFR 71 on 08/30/2024. Rib pain on left side Surgical History Surgical History H/O excision of mass upper back mass 01/19/22 History of cholecystectomy H/O cervical spine surgery H/O shoulder surgery H/O umbilical hernia repair History of hemorrhoidectomy History of thyroidectomy History of lumbar surgery Family History Family History Father Patient's father is , Onset Age: 79 Emphysema lung Hypertension Mother Family history of cardiovascular disease, Onset Age: 61 Acute myocardial infarction Social History Social History Smoking packs per day: 1 Smoking cigarettes per day: 20.0 Years smoked: 15 Smoking pack-years: 15.00 Smoking status: Former smoker Tobacco type: cigarettes Smoking end date: 10/30/76 Alcohol intake: current Alcohol use details: 2-4 PER MONTH Substance use: never Substance use type: does not use Lack of Transportation: No Lack of Food: Never True Current Housing: I Have Housing Concerned About Future Housing: No Difficulty Paying Gas/Electric Bills: No Difficulty Paying for Meds: No Currently Unemployed: No Education: High School Diploma/GED Difficulty w/ Childcare or Family Care: No Living arrangements: with family Occupation/Education: occupation 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 Gender identity (if verbalized by the patient): Male Spiritual care concerns: No Exam Narrative: APPEARANCE: No apparent distress. Head: atraumatic. EYES: EOMI, NOSE: Atraumatic NECK: Trachea midline RESPIRATORY: No increased rate of breathing, Speaking full sentences, scattered wheezing CARDIOVASCULAR: RRR, ABDOMINAL: Non-distended MUSCULOSKELETAl: No obvious deformities NEURO: Alert. Moving 4/4 extremities SKIN:: Warm, dry. Normal color PSYCHIATRIC: Normal affect Course Vital Signs Vital signs: Vital Signs Temperature 98.3 F 10/27/24 16:20 Pulse Rate 89 10/27/24 16:20 Respiratory Rate 18 10/27/24 16:20 Blood Pressure 136/68 10/27/24 16:20 Pulse Oximetry 96 10/27/24 16:20 Temperature 98.3 F 10/27/24 16:20 Pulse Rate 89 10/27/24 16:20 Respiratory Rate 18 10/27/24 16:20 Blood Pressure 136/68 10/27/24 16:20 Pulse Oximetry 96 10/27/24 16:20 Medical Decision Making MDM Narrative Medical decision making narrative: -Course: 69-year-old male presenting with cough after a cruise. Chest x-ray without evidence of pneumonia. viral swabs negative. Vital signs stable and he is well appearing overall. Does have slight expiratory wheezing on exam and was given a breathing treatment and a shot of steroids. He will be discharged on a course of doxycycline to cover atypical pneumonia. Patient will be discharged follow up primary care physician -DDX includes but is not limited to: Pneumonia, bronchitis, viral syndrome Vital Signs Vital Signs: Vital Signs Temperature 98.3 F 10/27/24 16:20 Pulse Rate 89 10/27/24 16:20 Respiratory Rate 18 10/27/24 16:20 Blood Pressure 136/68 10/27/24 16:20 Pulse Oximetry 96 10/27/24 16:20 Temperature 98.3 F 10/27/24 16:20 Pulse Rate 89 10/27/24 16:20 Respiratory Rate 18 10/27/24 16:20 Blood Pressure 136/68 10/27/24 16:20 Pulse Oximetry 96 10/27/24 16:20 Discharge Plan Discharge Clinical Impression: Upper respiratory infection Patient Disposition: Home, Self-Care Condition: Stable Instructions: Antibiotic Form, Cold Symptoms (ED) Additional Instructions: Please complete the antibiotics as instructed. Please follow-up with your primary care for if you develop worsening chest pain shortness of breath please return to ED for re-evaluation. Patient Language: Prydeinig Prescriptions: New doxycycline hyclate 100 mg capsule 100 mg PO DAILY Qty: 14 0RF No Action (DME) pen needle, diabetic [Novofine 32] 32 gauge x 1/4 needle See Rx Instructions .ROUTE .MEDSUPPLY Qty: 50 0RF Rx Instructions: use weekly with Ozempic (DME) OneTouch Ultra Blue Test Strip Strip See Rx Instructions .ROUTE .MEDSUPPLY Qty: 100 3RF Rx Instructions: checking blood sugar once daily (DME) lancets [OneTouch UltraSoft Lancets] Misc See Rx Instructions .ROUTE .MEDSUPPLY Qty: 100 3RF Rx Instructions: Checking Blood Sugar once daily lisinopril 40 mg tablet 40 mg PO DAILY Qty: 90 3RF amlodipine 5 mg tablet 5 mg PO DAILY Patient Comments: prescribed by center sales and service associate metoprolol succinate 25 mg tablet extended release 24 hr 25 mg PO DAILY Patient Comments: prescribed by center sales and service associate levothyroxine 150 mcg tablet 150 mcg PO DAILY Qty: 90 3RF ferrous sulfate 325 mg (65 mg iron) tablet,delayed release (DR/EC) 325 mg PO DAILY Qty: 90 3RF Ozempic 2 mg/dose (8 mg/3 mL) pen injector 2 mg subcut WEEKLY aspirin [Jaya Low Dose Aspirin] 81 mg Tablet,Delayed Release (Dr/Ec) 81 mg PO HS calcium carbonate 600 mg calcium (1,500 mg) tablet 1,200 mg PO QAM multivitamin Tablet 1 tablet PO QAM senna 8.6 mg capsule 8.6 mg PO BID PRN (Reason: Constipation) cyanocobalamin (vitamin B-12) 1,000 mcg capsule 1,000 mcg PO QAM allopurinol 300 mg tablet 300 mg PO QAM Qty: 90 3RF metformin 500 mg tablet extended release 24 hr 1,000 mg PO BID Qty: 360 3RF duloxetine [Cymbalta] 30 mg capsule,delayed release(DR/EC) 30 mg PO DAILY Qty: 90 3RF cholecalciferol (vitamin D3) 1,250 mcg (50,000 unit) capsule 50,000 unit PO WEEKLY Qty: 12 3RF Patient Comments: TAKES ON MONDAY pantoprazole 40 mg tablet,delayed release (DR/EC) 40 mg PO QAM Qty: 90 3RF ropinirole 0.25 mg tablet 0.25 mg PO BID Qty: 60 11RF triamcinolone acetonide 0.5 % cream 1 applic topical BID PRN (Reason: Dry Skin) Qty: 60 3RF Rx Instructions: apply to rash on extremities and trunk twice daily until clear but no longer than 2 weeks at a time Follow-up/Referrals: Dale Funes MD [Primary Care Provider] -
[2024-10-27 17:16] VITALS: PULSE 84; RESP 20
[2024-10-27] MEDS: IPRATROPIUM 0.5 MG/ALBUTEROL SULFATE 2.5 MG AMPUL.NEB 3 ML 6 ML INHALATION (17:16)
[2024-10-27 17:41] VITALS: PULSE 87; RESP 20
[2024-10-27 18:58] LABS: Influenza A QL RT-PCR Negative (Negative); Influenza B QL RT-PCR Negative (Negative); RSV RNA, RT-PCR Negative (Negative); SARS-CoV-2 RNA PCR Negative (Negative)
[2024-10-27] MEDS: guaiFENesin/DEXTROMETHORPHAN 10 ML UDC PO (19:11)
[2024-10-27] MEDS: dexAMETHasone SOD PHOS INJ 10 MG/ML 1 ML VIAL IM (19:11)
[2024-10-27 19:17] VITALS: BP 138/90; PULSE 82; RESP 20; TEMP 36.4; O2SAT 97
--- OUTSIDE RECORDS SUMMARY | 2024-11-03 20:13 | XMS_ITS | Continuity of Care Document ---
Author Organization [facility] Address [address] [place] [phone] Care Team Providers Care Information Developer Name Role Phone Dale Funes Primary Care Physician [phone] Encounter [facility] Financial Number [id number] Date(s): 09/06/24 - 09/06/24 [facility] [address] [phone] Discharge Disposition: Home or Self Care Attending Physician: Brandi Munguia DIRECTOR [employer] Allergies, Adverse Reactions, Alerts No Known Medication Allergies Assessment and Plan Future Appointments Appointment Date:09/12/2024 10:30:00 AM Scheduled Provider:Katie Munoz RD,LD,LINDSEY Location:[facility] Appointment Type:Intensive Behavioral Therapy, Follow-up Appointment Date:11/18/2024 01:00:00 PM Scheduled Provider: Location[facility] Appointment Type:Virtual Telephone Visit Appointment Date:02/25/2025 12:15:00 PM Scheduled Provider: Location:[facility] Appointment Type:[facility] EKG Appointment Date:02/25/2025 12:30:00 PM Scheduled Provider:Sushma Hurd NP Location:[facility] Appointment Type:HCS Follow Up Appointment Date:04/28/2025 12:00:00 PM Scheduled Provider:Raquel Velasquez MD Location[facility] Appointment Type:[facility] EP Established Patient Medications allopurinol 300 mg oral tablet 300 mg, 1 tablet(s), Oral, daily, 30 tablet(s), Tablet(s), 0 Start Date: 05/13/19 Status: Ordered amLODIPine 10 mg oral tablet 10 mg, 1 tablet(s), Oral, daily, 30 tablet(s), Tablet(s), 0 Start Date: 04/22/24 Status: Ordered aspirin 81 mg oral enteric coated tablet 81 mg, 1 tablet(s), Oral, daily, Tab EC, 0 Start Date: 05/13/19 Status: Ordered Benadryl 25 mg oral tablet 25 mg, 1 tablet(s), bid, 0 Start Date: 05/13/19 Status: Ordered Calcium Dispense as written Start Date: 05/13/19 Status: Ordered DULoxetine 30 mg ora capsule 30 mg, 1 capsule(s), Oral, daily, 30 capsule(s), Capsule(s), 0 Start Date: 10/16/23 Status: Ordered ergocalciferol 50,000 units oral capsule 50,000 unit(s), 1 capsule(s), Oral, q7days, 12 capsule(s), Capsule(s), 0 Start Date: 04/22/24 Status: Ordered lisinopril 40 mg oral tablet 1 tablet(s), Oral, daily, 90 tablet(s), 3, Route to Pharmacy Electronically, [id number], [id number], 185.4, cm, 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, Height, 138.1, kg, 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, Weight Start Date: 01/10/24 Status: Ordered metFORMIN 500 mg oral tablet, extended release 1,000 mg, 2 tablet(s), bid, 0 Start Date: 05/13/19 Status: Ordered Metoprolol Succinate ER 25 mg oral tablet, extended release 1 tablet(s), Oral, daily, 90 tablet(s), 2, Route to Pharmacy Electronically, [id number], [id number], 185.4, cm, 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/pharmacy #[id number], [id number], 185, cm, 05/09/24 14:21:00 CDT, Height, 128, kg, 07/25/24 14:49:00 CDT, Weight Start Date: 08/05/24 Status: Ordered pantoprazole 40 mg oral delayed release tablet 40 mg, 1 tablet(s), Oral, daily before breakfast, 30 tablet(s), 0 Start Date: 05/13/19 Status: Ordered rOPINIRole 0.25 mg oral tablet 0.25 mg, 1 tablet(s), Oral/Per Tube, bid, 0 Start Date: 10/16/23 Status: Ordered rosuvastatin 20 mg oral tablet 1 tablet(s), Oral, HS, 90 tablet(s), 3, Route to Pharmacy Electronically, [id number], [id number], 185, cm, 05/09/24 14:21:00 CDT, Height, 129, kg, 06/21/24 10:25:00 CDT, Weight Start Date: 06/25/24 Status: Ordered Senna 8.6 mg oral tablet mg, tablet(s), qpm, 0 Start Date: 05/13/19 Status: Ordered Synthroid 150 mcg (0.15 mg) oral tablet 150 mcg, 1 tablet(s), Oral, daily before breakfast, 30 tablet(s), Tablet(s), 0 Start Date: 05/13/19 Status: Ordered triamcinolone 0.025% cream 1 Applic, Topical, tid, Cream, 15 gm Start Date: 10/16/23 Status: Ordered Vitamin B12 1000 mcg oral tablet mcg, tablet(s), 0 Start Date: 05/13/19 Status: Ordered vitamin E 400 intl units oral capsule 400 unit(s), 1 capsule(s), Oral, daily, Capsule(s), 0 Start Date: 05/13/19 Status: Ordered Problem List Condition Confirmation Course Effective Dates Status Health St atus Informant Elevated coronary artery calcium score Confirmed Active Abnormal stress test Confirmed Active Carotid bruit Confirmed Active Chest pain Confirmed Active Diabetes Confirmed Active Ex-smoker Confirmed Active HLD (hyperlipidemia) Confirmed Active Mild HTN Confirmed Active PVCs (premature ventricular contractions) Confirmed Active Obesity Confirmed Active ZULEYKA (obstructive sleep apnea) Confirmed Active Advised about management of weight Confirmed Active Pre-operative exam Confirmed Active Snoring Confirmed Active Procedures Procedure Date Related Diagnosis Body Site Status Cystectomy 2021 Completed Back care 2020 Completed Gallbladder operation 2017 Com pleted Kidney stone analysis 2008 Com pleted Spinal fusion 2007 Completed Hemorrhoid operation 1999 Comp leted bilateral knee surgeries Completed bilateral shoulder surgeries Completed cholecystectomy Completed neck surgery Completed REMOVAL OF THYROID Comple jennifer Social History Social History Type Response Alcohol Current some day alc ohol user, 1-2 times per month Employment/School Retired Exercise Exercise duration: 0 . 1 Other 2, 3 Substance Abuse Never drug user Smoking Status Former smoker;Never; Tobacco Cessation Counseling Requested No; Stopped at age: 46; entered on: 08/21/23 Sex Sex Representation Male (finding) 1Does not exercise. 2PT HAS 4 CHILDREN 49,47,43,43 3Patient is and has 3 children ages: 44, 41 and 37. Note * Event Display: ROI_Correspondence * Event Display: Patient Provided Clipboard Authored Date: Cardiology Outpatient Note * Brandi Munguia DIRECTOR [employer]: PERFORM, MODIFY Event Display: Cardiology Office/Clinic Note Authored Date: Patient Information Name:LIBERTAD LORENZO Address: [address] [place] [phone] Sex:Male Date of :1955 Emergency Contact:TAY LORENZO Location: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 f/u 09/06 weight 276 ?? Had vomiting episode today after eating ham and beans with hot sauce Still struggling with eating good diet or exercising.?? His weight is down 3 pounds since starting.?? He is currently on 2 mg of Ozempic weekly tolerating very well.?? He has a dramatic decrease in his A1c however previously was 9 now is 6.4 percent ?? Recent LDL 41, triglycerides 125, HDL 31, cholesterol 93 Iron saturations low at 19 he tells me his primary risk working on getting iron approved. ?? He tells me he is undergoing cataract surgery in the next 2 weeks. ?? ZULEYKA discussed in detail as his primary is also requested to get a sleep study.?? He had 1 a number of years ago.?? He tells me he is primary told him he has to go in the hospital again for evaluationand he does not want to do this.?? Discussed importance of sleep apnea treatment and risk factors for treatment. ?? Given he is on now max dose of Ozempic and feeling well will follow-up in 3 months on November 18at 1 PM with virtual visit.?? Discussed when to call provider if needed ?? Review of Systems ?Constitutional ?Fever?No?.?Weight Gain?No?.?Weight Loss?No?.?Fatigue?No?.?Eyes ?Vision Change?No?.?Cardiovascular ?Chest Pain?No?.?Palpitations?No?. Short of breath at night?No. ??Orthopnea??No?.?Swelling in legs?No?.?Syncope (Fainting)?No?.?Dizziness?No?.?Shortness of breath with exertion?No?.?Respiratory ?SOB?No?. Snoring?No?.?Cough?No?.?Hemoptysis??No?.?Sputum?No?.?Gastrointestinal ?Abdominal pain??No?. ??Nausea?No?.?Diarrhea?No?.?Heart Burn?No?. Blood in stool?No?.? ENT ?Congestion?No?.?Sinus problems?No?. ?Musculoskeletal ?Joint pain?No?.?Muscle pain?No?.?Endocrine ?Thyroid disease?No?.?Diabetes?No?. ?Neurology ?Numbness?No?.?Headache?No?. Imbalance?No?.?Altered mental status?No?.?Hematology/Oncology ?Bleeding?No?.?Psychiatry ?Anxiety?No?.?Depression?No?.?Connective Tissue ?Lupus?No?. ?Skin ?Rash?No?.?Incontinence?No?.?Painful Urination?No?.?Blood in Urine?No?.? All 14 systems were reviewed with the patient in detail. For further details please refer to the HPI. Assessment/Plan ? #weight loss management BMI 40.1 rk: 128kg ??? initial 282.1 Weight today 276 Following with behavioral dietitian Continue Ozempic increase to 2mg 08/14 no significant symptoms Follow-up 11/18 @1p as scheduled or before and if needed ?? #h/o abnormal stress test, non-obstructive disease on CCTA, moderate to severe CAC -repeat CCTA with diffuse non-obstructive CAD, CAC 393 - + risk factors: HTN, HLD, obesity, former smoker, DM, known non-obstructive CAD -TTE reviewed -on ASA 81 mg and rosuvastatin ?? #DM2 a1c 9% 3 weeks ago Down to 6.4% -on metformin Repeat with PCP coming up will forward labs ?? # HTN -amlodipine to 10 mg/day- counseled re: edema -continue lisinopril 40 mg -can discontinue metoprolol- started for PVCs continue current meds DASH diet counseling ?? #Palpitations, PVCs -4% PVCs and 3 episodes v-tach -continue metoprolol XL 25 mg -CMR with nonspecific I/L enhancement; neg FDG PET -underwent PVC ablation in Nov 2023- doign well ?? # GERD -on PPI ?? #ZULEYKA Discussed in depth this patient has never used CPAP. Recommend further evaluation patient declines at this time ?? # HLD Recent LDL 41, triglycerides 125, HDL 31, cholesterol 93 -continue rosuvastatin at 20 mg ?? #. L carotid bruit -carotid dopplers reviewed -GDMT as above -on ASA and rosuvastatin with good control Problem List/Past Medical History Ongoing Abnormal stress test Advised about management of weight Carotid bruit Chest pain Diabetes Elevated coronary artery calcium score Ex-smoker HLD (hyperlipidemia) Mild HTN Obesity ZULEYKA (obstructive sleep apnea) Pre-operative exam PVCs (premature ventricular contractions) Snoring Historical No qualifying data Procedure/Surgical History ???Cystectomy (2021)???Back care (2020)???Gallbladder operation (2017)???Kidney stone analysis (2008)???Spinal fusion (2007)???Hemorrhoid operation (1999)???bilateral knee surgeries???bilateral shoulder surgeries???cholecystectomy???neck surgery???REMOVAL OF THYROID Medications allopurinol 300 mg oral tablet, 300 mg= 1 tablet(s), Oral, daily amLODIPine 10 mg oral tablet, 10 mg= 1 tablet(s), Oral, daily aspirin 81 mg oral enteric coated tablet, 81 mg= 1 tablet(s), Oral, daily Benadryl 25 mg oral tablet, 25 mg= 1 tablet(s), bid Calcium DULoxetine 30 mg ora capsule, 30 mg= 1 capsule(s), Oral, daily ergocalciferol 50,000 units oral capsule, 53860 unit(s)= 1 capsule(s), Oral, q7days lisinopril 40 mg oral tablet, 1 tablet(s), Oral, daily metFORMIN 500 mg oral tablet, extended release, 1000 mg= 2 tablet(s), bid Metoprolol Succinate ER 25 mg oral tablet, extended release, 1 tablet(s), Oral, daily Multivitamin oral tablet, 1 tablet(s), Oral, daily Ozempic 8 mg/3 mL (2 mg dose) subcutaneous solution, 2 mg, SubQ, weekly, 4 refills pantoprazole 40 mg oral delayed release tablet, 40 mg= 1 tablet(s), Oral, daily before breakfast rOPINIRole 0.25 mg oral tablet, 0.25 mg= 1 tablet(s), Oral/Per Tube, bid rosuvastatin 20 mg oral tablet, 1 tablet(s), Oral, HS Senna 8.6 mg oral tablet, qpm Synthroid 150 mcg (0.15 mg) oral tablet, 150 mcg= 1 tablet(s), Oral, daily before breakfast triamcinolone 0.025% cream, 1 Applic, Topical, tid Vitamin B12 1000 mcg oral tablet vitamin E 400 intl units oral capsule, 400 unit(s)= 1 capsule(s), Oral, daily Allergies No Known Medication Allergies Social History Alcohol Current some day alcohol user, 1-2 times per month, 08/21/2023 Employment/School Retired, 08/21/2023 Exercise Exercise duration: 0., 08/21/2023 Other Substance Abuse Never drug user, 08/21/2023 Tobacco Former smoker, Smokeless Tobacco use: Never. No Cessation Counseling. Stopped age 46 Years., 08/21/2023 Family History ?Mother ?Positive ?Hypertension ?Mother ?Positive ?Heart disease ?Mother ?Positive ?Diabetes ?Brother ?Positive ?Heart disease ? Voice to Text Technology Disclaimer This note may contain text inserted via Dragon or other voice to text assistive technology and professional development director, variances may occur. Patient Care team information Care Team Personnel Name: Brandi Munguia DIRECTOR [employer] Position: AMB [employer]/PA Member Role: Nurse Practitioner Address: [address] [place] [address] [place] Name: Dale Funes M.D. Position: ZZ FAX ONLY - MD NOT ON STAFF Member Role: Primary Care Physician Address: [address] [address]- Name: Raquel Velasquez MD Position: Physician - Cardiology Member Role: Mold Car Pusher Address: [address] [place] [address] [place] Name: Lg Johnson MD Position: Physician - Cardiology Member Role: Specialist Physician Address: [address] [place] [address] Name: Nora Grimes RN STAFF Position: AMB DIRECTOR [employer]/PA Member Role: Nurse Practitioner Address: [address] [place] [address] [place] Name: Sushma Hurd DIRECTOR [employer] Position: AMB DIRECT[employer]/PA Member Role: Nurse Practitioner Address: [address] [place] [address] [place] Care Team Related Persons Name: TAY LORENZO Name: SEAN LORENZO Insurance Providers Guarantor name: LIBERTAD LORENZO Health Plan Information #: 1 Payer: Medicare Member Number: [id number] Policy Number: NA Health Plan Information #: 2 Payer: Medicare Supplement Member Number: [id number] Policy Number: NA
--- OUTSIDE RECORDS SUMMARY | 2024-11-03 20:13 | XMS_ITS | Continuity of Care Document ---
Author Organization [facility] Address [address] [id number] Care Team Providers Care Marking Room Supervisor Name Role Phone LeslieElan olsonloco Bee Primary Care Physician Encounter [facility] Financial Number [id number] Date(s): 11/22/23 - 11/22/23 [facility] [address] [phone] Discharge Disposition: Home or Self Care Attending Physician: Greg Espinal MD Referring Physician: Raqule Velasquez MD Allergies, Adverse Reactions, Alerts No Known Medication Allergies Assessment and Plan Future Appointments Appointment Date:04/22/2024 12:00:00 PM Scheduled Provider:Raquel Velaqsuez MD Location:[facility] Appointment Type:[facility] EP Established Patient Medications Aleve 220 mg oral capsule 220 mg, 1 capsule(s), daily, 0 Start Date: 05/13/19 Status: Ordered allopurinol 300 mg oral tablet 300 mg, 1 tablet(s), Oral, daily, 30 tablet(s), Tablet(s), 0 Start Date: 05/13/19 Status: Ordered amLODIPine 10 mg oral tablet 10 mg, 1 tablet(s), Oral, daily, 90 tablet(s), Tablet(s), 3, 3, Route to Pharmacy Electronically, [facility]/pharmacy #[id number], [id number], 185.4, cm, 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, Height, 140.16, kg, 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, Weight Start Date: 10/16/23 Status: Ordered aspirin 81 mg oral enteric coated tablet 81 mg, 1 tablet(s), Oral, daily, Tab EC, 0 Start Date: 05/13/19 Status: Ordered Benadryl 25 mg oral tablet 25 mg, 1 tablet(s), bid, 0 Start Date: 05/13/19 Status: Ordered Calcium Dispense as written Start Date: 05/13/19 Status: Ordered cholecalciferol 5000 intl units oral capsule 5,000 unit(s), 1 capsule(s), daily, 0 Start Date: 05/13/19 Status: Ordered DULoxetine 30 mg ora capsule 30 mg, 1 capsule(s), Oral, daily, 30 capsule(s), Capsule(s), 0 Start Date: 10/16/23 Status: Ordered lisinopril 40 mg oral tablet 40 mg, 1 tablet(s), Oral, daily, 90 tablet(s), Tablet(s), 0, 0, Route to Pharmacy Electronically, [facility]/pharmacy #[id number], [id number], 185.4, cm, 08/21/23 11:21:00 CDT, Height, 137.2, kg, 08/21/23 11:21:00 CDT, Weight Start Date: 08/23/23 Stop Date: 11/21/23 Status: Ordered magnesium oxide daily, 0 Start Date: 05/13/19 Status: Ordered metFORMIN 500 mg oral tablet, extended release 1,000 mg, 2 tablet(s), bid, 0 Start Date: 05/13/19 Status: Ordered Metoprolol Succinate ER 25 mg oral tablet, extended release 25 mg, 1 tablet(s), Oral, daily, 30 tablet(s), Tablet CR, 6, 6, Route to Pharmacy Electronically, [facility]/pharmacy #[id number], [id number], 185.4, cm, 08/21/23 11:21:00 CDT, Height, 137.2, kg, 08/21/23 11:21:00 CDT, Weight Start Date: 09/14/23 Status: Ordered Multivitamin oral tablet 1 tablet(s), Oral, daily, 30 tablet(s), Tablet(s), 0 Start Date: 05/13/19 Status: Ordered pantoprazole 40 mg oral delayed release tablet 40 mg, 1 tablet(s), Oral, daily before breakfast, 30 tablet(s), 0 Start Date: 05/13/19 Status: Ordered rOPINIRole 0.25 mg oral tablet 0.25 mg, 1 tablet(s), Oral/Per Tube, bid, 0 Start Date: 10/16/23 Status: Ordered rosuvastatin 20 mg oral tablet 20 mg, 1 tablet(s), Oral, qhs, 90 tablet(s), Tablet(s), 3, 3, Route to Pharmacy Electronically, [facility]/pharmacy #[id number], [id number], 185.4, cm, 08/21/23 11:21:00 CDT, Height, 137.2, kg, 08/21/23 11:21:00 CDT, Weight Start Date: 08/31/23 Stop Date: 08/25/24 Status: Ordered Senna 8.6 mg oral tablet [...] bruit Confirmed Active Chest pain Confirmed Active Ex-smoker Confirmed Active HLD (hyperlipidemia) Confirmed Active Mild HTN Confirmed Active PVCs (premature ventricular contractions) Confirmed Active Obesity Confirmed Active Pre-operative exam Confirmed Active Snoring Confirmed Active Procedures Procedure Date Related Diagnosis Body Site Status Cystectomy 2021 Completed Back care 2020 Completed Gallbladder operation 2017 Com pleted Kidney stone analysis 2008 Com pleted Spinal fusion 2007 Completed Hemorrhoid operation 1999 Comp leted bilateral knee surgeries Completed bilateral shoulder surgeries Completed cholecystectomy Completed neck surgery Completed REMOVAL OF THYROID Comple jennifer Vital Signs Most recent to oldest [Reference Range]: 1 Peripheral Pulse Rate [60-100 bpm] 89 bp m (11/22/23 1:20 PM) Blood Pressure [89-139/60-90 mm Hg] 130/ 70mm Hg (11/22/23 1:20 PM) Height 185.4 cm (11/22/23 1:20 PM) Weight 140.2 kg (11/22/23 1:20 PM) Social History Social History Type Response Alcohol Current some day alc ohol user, 1-2 times per month Substance Abuse Never drug user Smoking Status Former smoker;Never; Tobacco Cessation Counseling Requested No; Stopped at age: 46; entered on: 08/21/23 Sex Note * Event Display: ROI_Correspondence * Event Display: Patient Provided Clipboard Authored Date: [id number] Ambulatory Comprehensive Intake Ambulatory Comprehensive IntakeOriginating Source: PATIENTOriginating Author: LIBERTAD Randhawa Submission Date: May 11, 2019 5:03:29 PM CDT LIBERTAD LORENZO : 1955 Sex: Male MRN(s): [id number] Ambulatory Comprehensive Intake Question Response Advance Directive No; Patient DECLINED additional information Advance Directive Date Location of Advance Directive Type of Advance Directive Patient has Court Appointed Guardian No Location of Court Appointed Guardian Documentation Legal Guardian Medical Power of Electrician Supervisor Name Patient Requests Counseling Regarding Advance Directives History of Falling in Last 3 Months, Including Since Admission No Impaired Judgment/Lack of Safety Awareness No Agitation No Impaired Gait, Shuffle, Wide Base, Unsteady Walk No Ever Experience Dizziness or Vertigo No Ever Wet or Soil Yourself on Way to Bathroom No Medical Devices None Crime Victim Specialist Card Other Crime Victim Specialist Details Radiology Testing Barriers/Precautions None Menstrual Status N/A Last Menstrual Period Previous LMP Date Last Menstrual Period Description Menarche Onset Menarche Frequency Menarche Length Menstrual Comments PAP result HPV Coping Stressors Emotional Support Available Yes Do You Receive Comfort From Spiritual Practices Yes Jehovah'S Witness Preference Non-mormon Spiritual Practice Comments Weight Change >10lbs No Fever No Fatigue Yes Difficulty Sleeping No Blood Transfusion No Blood in semen/sperm (men) No Inability to have an erection Yes Inability to reach climax No Infertility No Painful intercourse No Decreased sexual desire No Sexually Transmitted Diseases No ROS Visual Changes (Not Glasses) No Dizziness No Double vision No Sinus problems No Frequent persistent nosebleeds No Ear pain No Trouble hearing No Ringing in Ears Yes Hoarseness No Persistent sore throat No Mouth sores No Swollen glands (Frequent) No Breast pain/lumps Pelvic Pain Vaginal discharge Vaginal dryness Frequent sweats/hot flashes Menstrual problems Menopause Problems Baby weighing 9lbs or more Stop breathing during sleep No Shortness of Breath No Coughing up blood No Wheezing No Cough No Sore Throat No Gout Yes Back Pain (Major) Yes Neck Pain (Major) Yes Weakness of arm or leg No Joints Swelling/Stiffness No Deformities of Back/Extremities No Chest pain/tightness No Irregular rapid heart beat No Smothering feeling at night No Ankle swelling No Numbness or tingling Yes Severe frequent headaches No Abnormal coordination No Trouble with speech No Forgetfulness/confusion No Black/Bloody stools No Nausea/Vomiting (Frequent) No Frequent heart burn/acid (GERD) Yes Abdominal pain No Diarrhea (Frequent) No Constipation No Difficulty swallowing No Vomiting blood No Changes in hair/hair loss No Major skin problems No Wounds that will not heal No Persistent rash No Changes in moles No UTI No Urinary Incontinence No Urinary Hesitancy No Urinary Urgency Yes Frequent Urination No Nocturia Dysuria Hematuria Urinary Retention No Feeling blue/discouraged Yes High anxiety/stress No Loss of friends No Feeling life has no purpose No Feeling others are talking about you No Feeling fear Yes Hearing voices No Marital or relationship problems No 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 Chief Complaint Pain Present Yes actual or suspected pain Numeric Rating Pain Scale 6 Primary Pain Location Back - Lower Primary Pain Comments Neck and back pain caused by accident Electrophysiology Office/Clinic Note * Greg Espinal MD: PERFORM Event Display: Electrophysiology Office/Clinic Note Authored Date: Patient Information Name:LIBERTAD LORENZO Address: [address] [place] [phone] Sex:Male Date of :1955 Emergency Contact:TAY LORENZO Location:[facility] Registration Date and Time:11/22/2023 13:03 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 Consult requested by: Jazz Velasquez,? PCP: Dale Funes MD ?? Reason for consult: VT ?? History of Present Illness: The patient is a??68 year old with a history of CAD, HTN, DM2, HLD and hypothyroidism. He has a history of PVCs with a 4% PVC burden and some 3 episodes of NSVT. He feels tired??all the time when he has??PVC ?? ECG from today with rVOT origin. ?? Review of Systems: General: ??No weight loss or weight gain, energy level stable Skin: No rashes or eruptions, no bruising?? Lungs: ??No cough, shortness of breath, or wheezing Cardiac: See HPI GI: ??No nausea or vomiting, no abdominal pain or change in bowel habits : ??No dysuria, no hematuria?? Neurologic: ??No CVA/TIA symptoms?? All other ROS reviewed and are negative ?? 10 point ROS was otherwise negative except for what was stated in the HPI. ?? Physical Examination: ?? General:??Alert, cooperative, no distress HEENT:??Normocephalic, without obvious abnormality, atraumatic. No JVD, No LAD Lungs:?Clear to auscultation bilaterally. Heart:??Regular rate and rhythm, S1, S2 normal, no murmur, click, rub or gallop. Abdomen:?Soft, non-tender. Bowel sounds normal. No masses, ??No organomegaly. Extremities:Extremities normal, atraumatic, no cyanosis or edema. Pulses:2+ and symmetric all extremities. Skin:Skin color, texture, turgor normal. No rashes or lesions. Neurologic:Grossly non-focal ?? Data Review: ? ECG: NSR with iRBBB and frequent PVC RVOT origin ? Echo: 08/30/23 CONCLUSIONS: 1. Technically difficult study, ultrasound enhancing agent was used for better endocardial visualization. 2. Normal left ventricular cavity size. Normal left ventricular systolic function. The left ventricular ejection fraction is visually estimated at 50-55 %. The left ventricular ejection fraction is measured by Hendrickson's biplane method at 50 %. Normal left ventricular diastolic function for age as measured by tissue Doppler/Mitral Doppler indices. No left ventricular thrombus visualized. 3. Normal right ventricular size. 4. Normal appearance of the mitral valve leaflets. Mild mitral regurgitation. No mitral stenosis. 5. Probable trileaflet aortic valve, although not all leaflets are visualized. No hemodynamically significant aortic stenosis by Doppler. No aortic regurgitation. 6. The tricuspid valve is not well visualized. There is trace tricuspid regurgitation. 7. Normal pericardium with no significant pericardial effusion. 8. Ascending aorta is mildly dilated 3.8 cm. 9. The inferior vena cava is not well visualized. 10. Compared with prior study of 05/14/19 no substantial changes. The aorta may be better visualizedon the current study.? Holter CONCLUSIONS: 1. The underlying rhythm was normal sinus rhythm with an average rate of 82 beats per minute. 2. Ventricular ectopy was evident 4 % of all heart beats. 3. Ventricular tachycardia was noted 3 times with the longest episode 15 beats. 4. Supraventricular tachycardia was noted 0 times. 5. Atrial fibrillation was evident 0.0 % of all heart beats. 6. There were 0 pauses of more than 3 seconds. 7. Patient's events correlated with sinus rhythm with PVCs. 8. The patient reported no symptoms during the monitoring period. 9. First degree AV block and bundle branch block were noted. ?? CMRI: IMPRESSION: 1. ??Normal left ventricular size and systolic function. LVEF = 51 %.?? 2. ??Normal right ventricular size and systolic function. RVEF = 45 %.?? 3. ??On suboptimal quality late gadolinium enhancement imaging there appears to be patchy subendocardial enhancement involving the basal inferolateral wall. This is a non-specific pattern that may indicate regional fibrosis; consider sarcoidosis given clinical context. There is no myocardial infarction. There is no evidence of myocardial inflammation by T2 mapping. Consider FDG-PET study if there is clinical concern for sarcoidosis. ?? PET SUMMARY: 1. Myocardial Perfusion: normal 2. Global LV Function: normal 3. Myocardial glucose utilization: normal FINAL IMPRESSION: 1. There is no evidence of active myocardial inflammation. There is no evidence of underlying active cardiac sarcoidosis. 2. Normal rest perfusion. Normal left ventricular systolic function with LVEF 58%. ?? Carotid Dopplers Conclusions: 1. Atherosclerotic changes as noted in the carotid segments above without evidence of hemodynamically significant stenosis. 2. Antegrade flow is noted in bilateral vertebral arteries. 3. Per image, the left internal carotid artery stenosis appears closer to 50%. ?? 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 Patchy subendocardial enhancement of basal inferolateral wall 3. HTN ?? Recommendations: 1.??With regard to Frequent PVC, ?? - I discussed PVC ablation based on the 2019 Expert Consensus on ablation of ventricular arrhythmias (2019 HRS/EHRA/APHRS/LAHRS Expert Consensus Statement on Catheter Ablation of Ventricular Arrhythmias. Heart Rhythm 2019;March 08:) Right and left outflow tracts are the most common sites of originfor idiopathic VAs in patients without structural heart disease. In patients with frequent and sympt omatic PVCs originating from the right ventricular outflow tract in an otherwise normal heart, catheter ablation is recommended in preference to metoprolol or propafenone.??In patients that are asymptomatic, ablation is only recommended if the burden of PVC has resulted in LV dysfunction or at increased risk for LV dysfunction.??For patients who are clinical nonresponders to cardiac resynchronization therapy, with limited biventricular pacing due to frequent PVCs, successful PVC ablation is associated with improvement in heart failure class and a modest improvement in LVEF.? Given this is RVOT PVC and symptomatic, I recommend ablation. ?? I discussed at length with the patient the risks and benefits of the procedure. There is a 1% risk of life threatening complication. These include but are not limited to bleeding, vascular damage, damage to the normal conduction system necessitating a pacemaker, cardiac perforation, CVA, and .The patient states understanding these risks and wishes to continue. ?? 2. Schedule.? Travis Espinal MD, RS, [facility] Clinical Cardiac Electrophysiology [facility] ?? Office? Vitals and Measurements Vital Signs Height: 185.4 cm Height Inches Conversion: 73 Weight: 140.2 kg Weight in Pounds (kg conversion): 308.4 Body Surface Area: 2.6871 m2 Body Mass Index: 40.79 kg/m2 Systolic Blood Pressure: 130 mm Hg Diastolic Blood Pressure: 70 mm Hg Peripheral Pulse Rate: 89 bpm Oxygen Saturation: 95 % Assessment/Plan Ordered: EKG POC Follow Up No qualifying data available Problem List/Past Medical History Ongoing Abnormal stress test Carotid bruit Chest pain Elevated coronary artery calcium score Ex-smoker HLD (hyperlipidemia) Mild HTN Obesity Pre-operative exam PVCs (premature ventricular contractions) Snoring Historical No qualifying data Procedure/Surgical History ???Cystectomy (2021)???Back care (2020)???Gallbladder operation (2017)???Kidney stone analysis (2008)???Spinal fusion (2007)???Hemorrhoid operation (1999)???bilateral knee surgeries???bilateral shoulder surgeries???cholecystectomy???neck surgery???REMOVAL OF THYROID Medications Aleve 220 mg oral capsule, 220 mg= 1 capsule(s), daily allopurinol 300 mg oral tablet, 300 mg= 1 tablet(s), Oral, daily amLODIPine 10 mg oral tablet, 10 mg= 1 tablet(s), Oral, daily, 3 refills aspirin 81 mg oral enteric coated tablet, 81 mg= 1 tablet(s), Oral, daily Benadryl 25 mg oral tablet, 25 mg= 1 tablet(s), bid Calcium cholecalciferol 5000 intl units oral capsule, 5000 unit(s)= 1 capsule(s), daily DULoxetine 30 mg ora capsule, 30 mg= 1 capsule(s), Oral, daily lisinopril 40 mg oral tablet, 40 mg= 1 tablet(s), Oral, daily magnesium oxide, daily metFORMIN 500 mg oral tablet, extended release, 1000 mg= 2 tablet(s), bid Metoprolol Succinate ER 25 mg oral tablet, extended release, 25 mg= 1 tablet(s), Oral, daily, 6 refills Multivitamin oral tablet, 1 tablet(s), Oral, daily pantoprazole 40 mg oral delayed release tablet, 40 mg= 1 tablet(s), Oral, daily before breakfast rOPINIRole 0.25 mg oral tablet, 0.25 mg= 1 tablet(s), Oral/Per Tube, bid rosuvastatin 20 mg oral tablet, 20 mg= 1 tablet(s), Oral, qhs, 3 refills Senna 8.6 mg oral tablet, qpm Synthroid [...] other voice to text assistive technology and multiple cut off saw operator, variances may occur. Patient Care team information Care Team Personnel Name: Dale Funes M.D. Position: [facility] FAX ONLY - MD NOT ON STAFF Member Role: Primary Care Physician Address: Address: [address] [place] [id number]- Name: Raquel Velasquez MD Position: Physician - Cardiology Member Role: Candle Wrapper Address: Address: [address] [place] [address] [address] [place] [address] Name: Lg Johnson MD Position: Physician - Cardiology Member Role: Specialist Physician Address: Address: [address] [place] [address] Drive [address] [place] [address] Care Team Related Persons Name: TAY LORENZO Name: SEAN LORENZO Address: home [address] [facility], [id number]
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
--- OUTSIDE RECORDS SUMMARY | 2024-11-03 20:13 | XMS_ITS | Continuity of Care Document ---
Author Organization [facility] Address [address] [place] [phone] Care Team Providers Care Field Mechanical Meter Tester Name Role Phone Dale Funes Primary Care Physician Encounter [facility] Financial Number [id number] Date(s): 07/08/24 - 07/08/24 [facility] [address] [phone] Discharge Disposition: Home or Self Care Attending Physician: Brandi Munguia FLATBED DRIVER Allergies, Adverse Reactions, Alerts No Known Medication Allergies Assessment and Plan Future Appointments Appointment Date:07/12/2024 09:30:00 AM Scheduled Provider:Katie Munoz RD,LD,LINDSEY Location:[facility] Appointment Type:Intensive Behavioral Therapy, Follow-up Appointment Date:08/05/2024 01:00:00 PM Scheduled Provider: [facility] Appointment Type:Virtual Telephone Visit Appointment Date:02/25/2025 12:15:00 PM Scheduled Provider: Location:[facility] Appointment Type:[facility] EKG Appointment Date:02/25/2025 12:30:00 PM Scheduled Provider:Sushma Hurd NP Location:[facility] Appointment Type:[facility] Follow Up Appointment Date:04/28/2025 12:00:00 PM Scheduled Provider:Raquel Velasquez MD Location[facility] Appointment Type:[facility] EP Established Patient Medications allopurinol 300 [...] 90 tablet(s), 3, Route to Pharmacy Electronically, [id number], [id number], 185.4, cm, 12/28/23 10:46:00 COORDINATING PRODUCER, Height, 138.1, kg, 12/28/23 10:46:00 COORDINATING PRODUCER, Weight Start Date: 01/10/24 Status: Ordered metFORMIN 500 mg oral tablet, extended release 1,000 mg, 2 tablet(s), bid, 0 Start Date: 05/13/19 Status: Ordered Metoprolol Succinate ER 25 mg oral tablet, extended release 1 tablet(s), Oral, daily, 90 tablet(s), 2, Route to Pharmacy Electronically, [id number], [id number], 185.4, cm, 12/28/23 10:46:00 COORDINATING PRODUCER, Height, 138.1, kg, 12/28/23 10:46:00 COORDINATING PRODUCER, Weight Start Date: 02/05/24 Status: Ordered Multivitamin oral tablet 1 tablet(s), Oral, daily, 30 tablet(s), Tablet(s), 0 Start Date: 05/13/19 Status: Ordered Ozempic 4 mg/3 mL (1 mg dose) subcutaneous solution 1 mg, SubQ, weekly, 6 mL, Solution, 2, 2, Route to Pharmacy Electronically, [facility]/pharmacy #[id number], [id number], 185, cm, 05/09/24 14:21:00 CDT, Height, 129, kg, 06/21/24 10:25:00 CDT, Weight Start Date: 07/08/24 Status: Ordered pantoprazole 40 mg oral delayed release tablet 40 mg, 1 tablet(s), Oral, daily before breakfast, 30 tablet(s), 0 Start Date: 05/13/19 Status: Ordered rOPINIRole 0.25 mg oral tablet 0.25 mg, 1 tablet(s), Oral/Per Tube, bid, 0 Start Date: 10/16/23 Status: Ordered rosuvastatin 20 mg oral tablet 1 tablet(s), Oral, HS, 90 tablet(s), 3, Route to Pharmacy Electronically, [id number], [id number], 185, cm, 05/09/24 14:21:00 CDT, Height, 129, [...] at age: 46; entered on: 08/21/23 Sex 1Does not exercise. 2PT HAS 4 CHILDREN 49,47,43,43 3Patient is and has 3 children ages: 44, 41 and 37. Note * Event Display: ROI_Correspondence * Event Display: Patient Provided Clipboard Authored Date: [id number] Ambulatory Comprehensive Intake Ambulatory Comprehensive IntakeOriginating Source: PATIENTOriginating Author: LIBERTAD Randhawa Submission Date: May 11, 2019 5:03:29 PM PABLITOT LIBERTAD LORENZO : 1955 Sex: Male MRN(s): [id number] Ambulatory Comprehensive Intake Question Response Advance Directive No; Patient DECLINED additional information Advance Directive Date Location of Advance Directive Type of Advance Directive Patient has Court Appointed Guardian No Location of Court Appointed Guardian Documentation Legal Guardian Medical Power of Edge Stripper Name Patient Requests Counseling Regarding Advance Directives History of Falling in Last 3 Months, Including Since Admission No Impaired Judgment/Lack of Safety Awareness No Agitation No Impaired Gait, Shuffle, Wide Base, Unsteady Walk No Ever Experience Dizziness or Vertigo No Ever Wet or Soil Yourself on Way to Bathroom No Medical Devices None Carpet Or Rug Layer Helper Card Other Carpet Or Rug Layer Helper Details Radiology Testing Barriers/Precautions None Menstrual Status N/A Last Menstrual Period Previous LMP Date Last Menstrual Period Description Menarche Onset Menarche Frequency Menarche Length Menstrual Comments PAP result HPV Coping Stressors Emotional Support Available Yes Do You Receive Comfort From Spiritual Practices Yes Cheondoism Preference Non-hoahaoism Spiritual Practice Comments Weight Change >10lbs No [...] voices No Marital or relationship problems No senior adults director awakenings No Chief Complaint Pain Present Yes actual or suspected pain Numeric Rating Pain Scale 6 Primary Pain Location Back - Lower Primary Pain Comments Neck and back pain caused by accident Cardiology Outpatient Note * Brandi Munguia FLATBED DRIVER: PERFORM Event Display: Cardiology Office/Clinic Note Authored Date: Patient Information Name:LIBERTAD LORENOZ Address: [address] [place] [phone] Sex:Male Date of :1955 Emergency Contact:TAY LORENZO Location:[facility] Registration Date and Time:07/08/2024 11:33 CDT Primary Care Physician: Dale Funes M.D., Attending Physician: Brandi Munguia FLATBED DRIVER, Chief Complaint obesity History of Present Illness Doing wonderful??he is down 30 pounds. ??Side effect of vomiting??green bile??first week of the increase last time.?? Side effects??dissipated after the first week. ??Will increase??to 1 mg next??week, prescription sent.?? Follow- up??in 1 month ?? Of note he did ask about??me being able to see his brother who also needs to lose a significant weight.?? He does have underlying cardiac issues??discussed if he becomes a patient of the practice I am more than happy to see him as well Review of Systems ?Constitutional ?Fever?No?.?Weight Gain?No?.?Weight Loss?No?.?Fatigue?No?.?Eyes [...] details please refer to the HPI. Assessment/Plan Orders: semaglutide(Ozempic 4 mg/3 mL (1 mg dose) subcutaneous solution), 1 mg, SubQ, weekly, 2 refills ?? #weight loss management BMI 40.1 rk: 278?? down 30 lb?? Continue Ozempic??transitioning to??1 mg next Monday 9???8 no significant symptoms?? Follow-up??10???7??as scheduled or before and if needed ?? #h/o abnormal stress test, non-obstructive disease on CCTA, moderate to severe??CAC -repeat CCTA with diffuse non-obstructive CAD, CAC 393 - + risk factors: HTN, HLD, obesity, former smoker, DM, known non-obstructive CAD -TTE reviewed -on ASA 81 mg and?? rosuvastatin ?? #DM2 -on metformin a1c 9% 3 weeks ago -on lisinopril 40 mg ?? #??HTN -amlodipine to 10 mg/day- counseled re: edema -continue lisinopril 40 mg -can discontinue metoprolol- started for PVCs -will refer for weight mgmt clinic for consideration of GLP-1 agonist continue current meds DASH diet counseling ?? #??palpitations, PVCs -4% PVCs and 3 episodes v-tach -continue metoprolol XL 25 mg -CMR with nonspecific I/L enhancement; neg FDG PET -underwent PVC ablation in Nov 2023- doign well ?? #??GERD -on PPI ?? #ZULEYKA -on CPAP- continue ?? #??HLD -last FLP with LDL 53 -continue rosuva at 20 mg -nalso taking simvastatin- discontinue ?? #. L carotid bruit -carotid dopplers [...] Oral, daily ergocalciferol 50,000 units oral capsule, 55297 unit(s)= 1 capsule(s), Oral, q7days lisinopril 40 mg oral tablet, 1 tablet(s), Oral, daily metFORMIN 500 mg oral tablet, extended release, 1000 mg= 2 tablet(s), bid Metoprolol Succinate ER 25 mg oral tablet, extended release, 1 tablet(s), Oral, daily Multivitamin oral tablet, 1 tablet(s), Oral, daily Ozempic 4 mg/3 mL (1 mg dose) subcutaneous solution, 1 mg, SubQ, weekly, 2 refills pantoprazole 40 mg oral delayed release [...] other voice to text assistive technology and lathe winder, variances may occur. Patient Care team information Care Team Personnel Name: Brandi Munguia FLATBED DRIVER Position: AMB FLATBED DRIVER/PA Member Role: Nurse Practitioner Address: Address: [address] Name: Dale Funes M.D. Position: ZZ FAX ONLY - MD NOT ON STAFF Member Role: Primary Care Physician Address: Address: [address] [place] [address]- Name: Raquel Velasquez MD Position: Physician - Cardiology Member Role: Piano Builder Address: Address: [address] Name: Lg Johnson MD Position: Physician - Cardiology Member Role: Specialist Physician Address: Address: [address] [place] [address] [place] Name: Nora Grimes PORTRAIT PHOTOGRAPHER Position: AMB FLATBED DRIVER/PA Member Role: Nurse Practitioner Address: Address: [address] [place] [address] Name: Sushma Hurd FLATBED DRIVER Position: AMB FLATBED DRIVER/PA Member Role: Nurse Practitioner Address: Address: [address] [place] [address] Name: Brandi Munguia FLATBED DRIVER Position: AMB FLATBED DRIVER/PA Med Service: Evaluation Manager Field Mechanical Meter Tester Role: Attending Physician Address: Address: [address] [place] [phone] Care Team Related Persons Name: TAY LORENZO Name: SEAN LORENZO Address: home [address], [phone]
--- OUTSIDE RECORDS SUMMARY | 2024-11-03 20:13 | XMS_ITS | Continuity of Care Document ---
Author Organization [facility] Address [address] [place] [phone] Care Team Providers Care Mail Caller Name Role Phone Dale Funes Primary Care Physician Encounter [facility] Financial Number [id number] Date(s): 08/21/23 - 08/21/23 [facility] [address] [phone] Encounter Diagnosis Abnormal stress test(Discharge Diagnosis) - 08/21/23 Chest pain(Discharge Diagnosis) - 08/21/23 HLD (hyperlipidemia)(Discharge Diagnosis) - 08/21/23 Mild HTN(Discharge Diagnosis) - 08/21/23 Snoring(Discharge Diagnosis) - 08/21/23 Elevated coronary artery calcium score(Discharge Diagnosis) - 08/21/23 PVCs (premature ventricular contractions)(Discharge Diagnosis) - 08/21/23 Carotid bruit(Discharge Diagnosis) - 08/21/23 CAD (coronary artery disease)(Discharge Diagnosis) - 08/21/23 Dyspnea(Discharge Diagnosis) - 08/21/23 Discharge Disposition: Home or Self Care Attending Physician: Raquel Velasquez MD Allergies, Adverse Reactions, Alerts No Known Medication Allergies Assessment and Plan Future Appointments Appointment Date:08/30/2023 07:30:00 AM Scheduled Provider: Location:[facility] Appointment Type:Echocardiogram Complete Study Appointment Date:08/30/2023 08:30:00 AM Scheduled Provider: Location:[facility] MRI/CT Appointment Type:CT ANGIO HEART/CORONARY ARTERIES Appointment Date:08/30/2023 09:30:00 AM Scheduled Provider: Location:[facility] Appointment Type:Carotid Duplex Scan Appointment Date:10/16/2023 12:00:00 PM Scheduled Provider:Raquel Velasquez MD Location[facility] Appointment Type:[facility] EP Established Patient Medications Aleve 220 mg oral capsule 220 mg, 1 capsule(s), daily, 0 Start Date: 05/13/19 Status: Ordered allopurinol 300 mg oral tablet 300 mg, 1 tablet(s), Oral, daily, 30 tablet(s), Tablet(s), 0 Start Date: 05/13/19 Status: Ordered aspirin 81 mg oral enteric [...] tablet 40 mg, 1 tablet(s), Oral, daily, 30 tablet(s), Tablet(s), 0, 0, Do Not Route Start Date: 08/21/23 Status: Ordered magnesium oxide daily, 0 Start [...] of the test., [id number] [id number], Instructions Replace Required Details Start Date: 05/14/19 Status: Ordered Multivitamin oral tablet 1 tablet(s), Oral, daily, 30 tablet(s), Tablet(s), 0 Start Date: 05/13/19 Status: Ordered pantoprazole 40 mg oral delayed release tablet 40 mg, 1 tablet(s), Oral, daily before breakfast, 30 tablet(s), 0 Start Date: 05/13/19 Status: Ordered Senna 8.6 mg oral tablet mg, tablet(s), qpm, 0 Start Date: 05/13/19 Status: Ordered simvastatin 20 mg oral tablet 40 mg, 2 tablet(s), Oral, qhs, 60 tablet(s), Tablet(s), 5, 5, Route to Pharmacy Electronically, [facility]/pharmacy #[id number], [id number], 185.4, cm, 08/21/23 11:21:00 CDT, Height, 137.2, kg, 08/21/23 11:21:00 CDT, Weight Start Date: 08/21/23 Status: Ordered Synthroid 150 mcg (0.15 mg) [...] Range]: 1 Peripheral Pulse Rate [60-100 bpm] 87 bp m (08/21/23 11:21 AM) Blood Pressure [89-139/60-90 mm Hg] 148/ 88mm Hg *H* (08/21/23 11:21 AM) Height 185.4 cm (08/21/23 11:21 AM) Weight 137.2 kg (08/21/23 11:21 AM) Social History Social History Type Response Alcohol Current some day alc ohol user, 1-2 times per month Substance Abuse Never drug user Smoking Status Former smoker;Never; Tobacco Cessation Counseling Requested No; Stopped at age: 46; entered on: 08/21/23 Sex Hospital Discharge Instructions Patient Education 08/21/2023 10:59:39 Eating Heart-Healthy Food: Using the DASH Plan Eating Heart-Healthy Food: Using the DASH Plan Eating for your heart doesn???t have to be hard or boring. You just need to know how to make healthier choices. The DASH eating plan has been developed to help you do just that. DASH stands for Dietary Approaches to Stop Hypertension. It is a plan that has been proven to be healthier for your heartand to lower your risk for high blood pressure. It can also help lower your risk for cancer, heart d isease, osteoporosis, and diabetes. Choosing from each food group Choose foods from each of the food groups below each day. Try to get the recommended number of servings for each food group. The serving numbers are based on a diet of 2,000 calories a day.??Talk with your healthcare provider if you???re not sure about your calorie needs. Along with getting the correct servings, the DASH plan also advises less than 2,300 mg of salt (sodium) per day. Lowering sodium intake to 1,500 mg per day lowers blood pressure even more. (There's about 2,300 mg of sodium in 1 teaspoon of salt.)? Grains Servings: 6 to 8 a day A serving is: ???1 slice bread ???1 ounce dry cereal ???Half a cup cooked rice, pasta or cereal Best choices: Whole grains and any grains high in fiber. Vegetables Servings: 4 to 5 a day A serving is: ???1 cup raw leafy vegetable ???Half a cup cut-up raw or cooked vegetable ???Half a cup vegetable juice Best choices: Fresh or frozen vegetables prepared without added salt or fat. Fruits Servings: 4 to 5 a day A serving is: ???1 medium fruit ???One-quarter cup dried fruit ???Half a cup fresh, frozen, or canned fruit ???Half a cup of 100% fruit juices Best choices: A variety of fresh fruits of different colors. Whole fruits are a??better choice thanfruit juices. Low-fat or fat-free dairy Servings: 2 to 3 a day A serving is: ???1 cup milk ???1 cup yogurt ???One and a half ounces cheese Best choices: Skim or 1% milk, low-fat or fat-free yogurt or buttermilk, and low-fat cheeses. ? Lean meats, poultry, fish Servings:??6 or fewer a day A serving is: ???1??ounce cooked meats, poultry, or fish ???1 egg Best choices: Lean??poultry and fish. Trim away visible fat. Broil, grill, roast, or boil instead of frying. Remove skin from poultry before eating. Limit how much red meat you eat.?? Nuts, seeds, beans Servings: 4 to 5 a week A serving is: ???One-third cup nuts (one and a half ounces) ???2 tablespoons nut butter or seeds ???Half a cup cooked dry beans or legumes Best choices: Dry roasted nuts with no salt added, lentils, kidney beans, garbanzo beans, and wholepinto beans. Fats and oils Servings: 2 to 3 a day A serving is: ???1 teaspoon vegetable oil ???1 teaspoon soft margarine ???1 tablespoon??mayonnaise ???2 tablespoons salad dressing Best choices: Nut and vegetable oils??(nontropical vegetable oils), such as olive and canola oil. Sweets Servings: 5 a week or fewer A serving is: ???1 tablespoon sugar, maple syrup, or honey ???1 tablespoon jam or jelly ???1 half-ounce jelly beans (about 15) ???1 cup lemonade Best choices: Dried fruit can be a satisfying sweet. Choose low-fat sweets. And watch your serving sizes! ?? For more on the DASH eating plan, visit: www.nhlbi.nih.gov/health/health-topics/topics/dash ?? [employer]. All rights reserved. This information is not intended as a substitute for professional medical care. Always follow your healthcare professional's instructions. Note * Event Display: Consent/Registration Forms Authored Date: * Event Display: Consent/Registration Forms Authored Date: * Event Display: Privacy Practice Authored Date: * Tania Jarrett GANG BOSS: PERFORM Event Display: Patient Documentation AMB Authored Date: [id number] * Tania Jarrett GANG BOSS: PERFORM Event Display: Patient Documentation AMB Authored Date: [id number] * Tania Jarrett GANG BOSS: PERFORM Event Display: Patient Documentation AMB Authored Date: [id number] * Event Display: ROI_Correspondence * Event Display: Patient Provided Clipboard Authored Date: Ambulatory Comprehensive Intake Ambulatory Comprehensive IntakeOriginating Source: PATIENTOriginating Author: LIBERTAD Randhawa Submission Date: May 11, 2019 5:03:29 PM CDT LIBERTAD LORENZO : 1955 Sex: Male MRN(s): [id number] Ambulatory Comprehensive Intake Question Response Advance Directive No; Patient DECLINED additional information Advance Directive Date Location of Advance Directive Type of Advance Directive Patient has Court Appointed Guardian No Location of Court Appointed Guardian Documentation Legal Guardian Medical Power of Developmental Therapist Name Patient Requests Counseling Regarding Advance Directives History of Falling in Last 3 Months, Including Since Admission No Impaired Judgment/Lack of Safety Awareness No Agitation No Impaired Gait, Shuffle, Wide Base, Unsteady Walk No Ever Experience Dizziness or Vertigo No Ever Wet or Soil Yourself on Way to Bathroom No Medical Devices None 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 Details Radiology Testing Barriers/Precautions None Menstrual Status N/A Last Menstrual Period Previous LMP Date Last Menstrual Period Description Menarche Onset Menarche Frequency Menarche Length Menstrual Comments PAP result HPV Coping Stressors Emotional Support Available Yes Do You Receive Comfort From Spiritual Practices Yes Druze Preference Non-scientologist Spiritual Practice Comments Weight Change >10lbs No [...] voices No Marital or relationship problems No window maker awakenings No Chief Complaint Pain Present Yes actual or suspected pain Numeric Rating Pain Scale 6 Primary Pain Location Back - Lower Primary Pain Comments Neck and back pain caused by accident EKG study * Tania Jarrett GANG BOSS: PERFORM Event Display: In Office EKG Authored Date: Cardiology Outpatient Note * Raquel Velasquez MD: PERFORM, MODIFY, MODIFY, MODIFY, MODIFY Event Display: Cardiology Office/Clinic Note Authored Date: Patient Information Name:LIBERTAD LORENZO Address: [address] [place], [place] [phone] Sex:Male Date of :1955 [facility]:[id number] Location:[facility] Registration Date and Time:08/21/2023 11:20 CDT Primary Care Physician: Dale Funes M.D., Attending Physician: Raquel Velasquez MD, Chief Complaint establish care- abnormal EKG, PVCs History of Present Illness 68 year old male referred by Dr. Dale Funes. He has a h/o HTN, HLD, DM-2, ZULEYKA- on CPAP, hypothyroidism, Rushing's esophagus/GERD. Has a h/o abnormal EKG and h/o abnormal stress test with smallto moderate area of ischemia in the inferior wall. Had CCTA with non-obstructive disease in the RCA. Seen by Dr. Bray 04/2019. ??Endorsed palpitations to his PCP. But no CP, SOB. Stress test was done prior to his lumbar surgery and he was cleared for the surgery. ?HDL 38, TG 155, LDL 83 AST 57 ALT 82 12/2022 States occ at night time he has had CP but not with exertion. Occ dyspnea. Denies syncope. Works [employer] at [employer] and this summer had an episode where he thought he was going to pass out. ?? Review of Systems Pertinent findings as per HPI, all other systems are negative. Vitals and Measurements Vital Signs Height: 185.4 cm Height Inches Conversion: 73 Weight: 137.2 kg Weight in Pounds (kg conversion): 301.8 Body Surface Area: 2.6582 m2 Body Mass Index: 39.91 kg/m2 Systolic Blood Pressure:??148 mm Hg??High Diastolic Blood Pressure: 88 mm Hg Peripheral Pulse Rate: 87 bpm Oxygen Saturation: 98 % Physical Exam Gen -??Well-appearing, no acute distress HEENT-anicteric, conjunctiva pink Neck-L carotid bruit JVP normal CV- RRR, frequent PVCs III/Vi AMBAR RUSB, no S3 Resp - clear b/l abd - soft, NT/ND, HJR negative ext - WWP, no LE edema Neuro -alert, oriented, grossly nonfocal Assessment/Plan 1. h/o abnormal stress test, non-obstructive disease on CCTA, moderate CAC stress test, Abnormal EKG, PVCs -will refer for repeat CCTA given symptoms of dyspnea, occ CP - + risk factors: HTN, HLD, obesity, former smoker, DM, known non-obstructive CAD -check TTE -on ASA 81 mg and simvastatin 20 mg ?? 2. DM2 on metformin -on lisinopril 40 mg ?? 3. HTN not well controlled will have him do ambulatory BP monitoring and add amlodipine 2.5 mg if uncontrolled at home continue current meds DASH diet counseling ?? 4. palpitations, PVCs -check 14 day monitor to quantify PVCs -check TTE ?? 5. GERD -on PPI ?? 6. ZULEYKA -on CPAP- continue ?? 7. HLD -on simvastatin 20 mg -last FLP with LDL 83 -increase simvastatin to 40 mg -repeat LFTs in 2-3 months ?? 8. L carotid bruit check carotid doppler continue ASA and increase simvastatin as above ?? Patient Instructions 1. please schedule coronary CTA and echo and carotid ultrasound 2. please wear monitor for 14 days 3. please follow up in 2 months 4. DASH diet- [place] over [employer] and [employer] 5. Increase your simvastatin to 40 mg/day (2 tablets) 6. monitor your blood pressure for 1 week and call us with the readings. Problem List/Past Medical History Ongoing Abnormal stress test Chest pain Ex-smoker HLD (hyperlipidemia) Mild HTN Obesity Pre-operative exam Snoring Historical No qualifying data Procedure/Surgical History ???bilateral knee surgeries???bilateral shoulder surgeries???cholecystectomy???neck surgery???REMOVAL OF THYROID Medications Aleve 220 mg oral capsule, 220 mg= 1 capsule(s), daily allopurinol 300 mg oral tablet, 300 mg= 1 tablet(s), Oral, daily aspirin 81 mg oral enteric coated tablet, 81 mg= 1 tablet(s), Oral, daily Benadryl 25 mg oral tablet, 25 mg= 1 tablet(s), bid Calcium cholecalciferol 5000 intl units oral capsule, 5000 unit(s)= 1 capsule(s), daily Chondroitin-Glucosamine, 1 capsule(s), daily lisinopril 40 mg oral tablet, 40 mg= 1 tablet(s), Oral, daily magnesium oxide, daily metFORMIN 500 mg oral tablet, extended release, 1000 mg= 2 tablet(s), bid Metoprolol Tartrate 25 mg oral tablet, See Instructions Multivitamin oral tablet, 1 tablet(s), Oral, daily pantoprazole 40 mg oral delayed release tablet, 40 mg= 1 tablet(s), Oral, daily before breakfast Senna 8.6 mg oral tablet, qpm simvastatin 20 mg oral tablet, 40 mg= 2 tablet(s), Oral, qhs, 5 refills Synthroid 150 mcg (0.15 mg) oral tablet, 150 mcg= 1 tablet(s), Oral, daily before breakfast Vitamin B12 1000 mcg oral tablet vitamin E 400 intl units oral capsule, 400 unit(s)= 1 capsule(s), Oral, daily Allergies No Known Medication Allergies Social History Alcohol Current some day alcohol user, 1-2 times per month, 05/13/2019 Exercise Other Substance Abuse Never drug user, 05/13/2019 Tobacco Former smoker, Stopped smoking 41 years ago. per day., 05/13/2019 Family History ?Mother ?Positive ?Hypertension ?Mother ?Positive ?Heart disease ?Mother ?Positive ?Diabetes ?Brother ?Positive ?Heart disease ? mother of [place] age 61 Lab Results see scanned labs Diagnostic Results 05/07/2019 [place] ? Conclusions: 1. No pharmacologic induced chest pain. 2. No diagnostic ST changes during Lexiscan infusion. See MPI portion of report for?? interpretation of nuclear imaging pre and post infusion. ?? Technically adequate ??study. ??Attenuation correction used. ?? No definitive evidence of left ventricular infarction. ?? Small to moderate area of ischemia involving the mid inferior wall of the left ventricle. ?? Gated SPECT reveals an ejection fraction at 71% with no regional wall motion abnormality. ?? 05/07/2019 CCTA ?? Impression: 1. There is minimal to mild disease (less than 50%) of the LAD, ramus intermedius and RCA as described above, with predominantly underlying calcified plaque. 2. There is moderate amount of coronary artery calcification. Agatston score is 228. This places the patient in the 72nd percentile for an age and gender matched cohort. 3. Findings of this coronary CT angiogram are consistent with CAD-RADS 2. Following management plan may be considered for this CAD-RADS grade:? CAD-RADS 2: (25%?49%) ??Mild nonobstructive CAD Consider nonatherosclerotic causes of chest pain; consider preventive therapy and risk factor modification, particularly for patients with nonobstructive plaque in multiple segments. ?? 05/14/2019 TTE ?? Conclusions: 1. This is a technically difficult study with limited valvular assessment. 2. On limited quality images, biventricular size and systolic function appears grossly?? unremarkable. There is no evidence of high-grade stenosis or regurgitation. ? EKG- SR with PVCs, inferior q waves Voice to Text Technology Disclaimer This note may contain text inserted via Dragon or other voice to text assistive technology and foundation digger, variances may occur. Outpatient Summary note * Criss Ritchie MA-MR: PERFORM Event Display: Ambulatory Patient Summary Authored Date: [id number] LIBERTAD LORENZO :1955 Visit Date:08/21/2023 [facility] Visit Instructions Your Diagnosis Abnormal stress test Chest pain HLD (hyperlipidemia) Mild HTN Snoring Elevated coronary artery calcium score PVCs (premature ventricular contractions) Carotid bruit CAD (coronary artery disease) Dyspnea Your Care Team Attending Physician - Raquel Velasquez MD Primary Care Physician - Dale Funes M.D. Procedure History ???Cystectomy (2021)???Back care (2020)???Gallbladder operation (2017)???Kidney stone analysis (2008)???Spinal fusion (2007)???Hemorrhoid operation (1999)???bilateral knee surgeries???bilateral shoulder surgeries???cholecystectomy???neck surgery???REMOVAL OF THYROID Discharge Vitals Vital Signs Height: 185.4 cm Height Inches Conversion: 73 Weight: 137.2 kg Weight in Pounds (kg conversion): 301.8 Body Surface Area: 2.6582 m2 Body Mass Index: 39.91 kg/m2 Systolic Blood Pressure:??148 mm Hg??High Diastolic Blood Pressure: 88 mm Hg Peripheral Pulse Rate: 87 bpm Oxygen Saturation: 98 % What to do next Instructions From Your Doctor 1. please schedule coronary CTA and echo and carotid ultrasound 2. please wear monitor for 14 days 3. please follow up in 2 months 4. DASH diet- [place] over [employer] and [employer] 5. Increase your simvastatin to 40 mg/day (2 tablets) 6. monitor your blood pressure for 1 week and call us with the readings. Scheduled Follow-Up Appointments Monday 7:30 AM CDT ?? With: Where: [facility] Hospital Monday 8:30 AM CDT ?? With: Where: [facility] MRI XRAY/CT SCAN Monday 9:30 AM CDT ?? With: Where: [facility] Monday 12:00 PM PLACEMENT SECRETARY ?? With: Raquel Velasquez MD Where: [facility] [address] [phone] You Need to Complete the Following CT ANGIO HEART/CORONARY ARTERIES per protocol, cad, chest pain, dyspnea, PVCs, 08/30/23, ROUTINE, Abnormal stress test Chest pain HLD (hyperlipidemia) Mild HTN Snoring CAD (coronary artery disease) Dyspnea PVCs (premature ventricular contractions), Not Required, Future Order, Electro... Referral Information Referral Information ? No Results Found ? Medications What How Much When Instructions Changed simvastatin (simvastatin 20 mg oral tablet) 2 tablet(s) By mouth Every evening at bedtime Pickup at [facility]/pharmacy #[id number] Unchanged allopurinol (allopurinol 300 mg oral tablet) 1 tablet(s) By mouth Daily Unchanged aspirin (aspirin 81 mg oral enteric coated tablet) 1 tablet(s) By mouth Daily Unchanged Calcium Unchanged cholecalciferol (cholecalciferol 5000 intl units oral capsule) 1 capsule(s) Daily Unchanged chondroitin-glucosamine (Chondroitin-Glucosamine) 1 capsule(s) Daily Unchanged cyanocobalamin (Vitamin B12 1000 mcg oral tablet) Unchanged diphenhydrAMINE (Benadryl 25 mg oral tablet) 1 tablet(s) 2 times a day Unchanged levothyroxine (Synthroid 150 mcg (0.15 mg) oral tablet) 1 tablet(s) By mouth Daily before breakfast Unchanged lisinopril-hydroCHLOROthiazide (lisinopril-hydroCHLOROthiazide 20 mg- 12.5 mg oral tablet) 1 tablet(s) By mouth Daily Unchanged magnesium oxide Daily Unchanged metFORMIN (metFORMIN 500 mg oral tablet, extended release) 2 tablet(s) 2 times a day Unchanged metoprolol (Metoprolol Tartrate 25 mg oral tablet) See instructions take 1 tab in the morning the day before the test, the evening before the test and the morning of the test. ?? Unchanged multivitamin (Multivitamin oral tablet) 1 tablet(s) By mouth Daily Unchanged naproxen (Aleve 220 mg oral capsule) 1 capsule(s) Daily Unchanged pantoprazole (pantoprazole 40 mg oral delayed release tablet) 1 tablet(s) By mouth Daily before breakfast Unchanged Senna (Senna 8.6 mg oral tablet) Once a day (in the evening) Unchanged vitamin E (vitamin E 400 intl units oral capsule) 1 capsule(s) By mouth Daily Pharmacy Information [facility]/pharmacy #[id number]: [address] [place] [place] [id number] [phone] Medications and Immunizations Administered Medication Administrations ? No Results Found ? Allergies No Known Medication Allergies Problems Ongoing Abnormal stress test Carotid bruit Chest pain Elevated coronary artery calcium score Ex-smoker HLD (hyperlipidemia) Mild HTN Obesity Pre-operative exam PVCs (premature ventricular contractions) Snoring PatientStated Former smoker Historical No qualifying data Education Materials Eating Heart-Healthy Food: Using the DASH Plan Eating for your heart doesn???t have to be hard or boring. You just need to know how to make healthier choices. The DASH eating plan has been developed to help you do just that. DASH stands for Dietary Approaches to Stop Hypertension. It is a plan that has been proven to be healthier for your heartand to lower your risk for high blood pressure. It can also help lower your risk for cancer, heart d isease, osteoporosis, and diabetes. Choosing from each food group Choose foods from each of the food groups below each day. Try to get the recommended number of servings for each food group. The serving numbers are based on a diet of 2,000 calories a day.??Talk with your healthcare provider if you???re not sure about your calorie needs. Along with getting the correct servings, the DASH plan also advises less than 2,300 mg of salt (sodium) per day. Lowering sodium intake to 1,500 mg per day lowers blood pressure even more. (There's about 2,300 mg of sodium in 1 teaspoon of salt.)?? Grains Servings: 6 to 8 a day A serving is: ???1 slice bread ???1 ounce dry cereal ???Half a cup cooked rice, pasta or cereal Best choices: Whole grains and any grains high in fiber. Vegetables Servings: 4 to 5 a day A serving is: ???1 cup raw leafy vegetable ???Half a cup cut-up raw or cooked vegetable ???Half a cup vegetable juice Best choices: Fresh or frozen vegetables prepared without added salt or fat. Fruits Servings: 4 to 5 a day A serving is: ???1 medium fruit ???One-quarter cup dried fruit ???Half a cup fresh, frozen, or canned fruit ???Half a cup of 100% fruit juices Best choices: A variety of fresh fruits of different colors. Whole fruits are a??better choice thanfruit juices. Low-fat or fat-free dairy Servings: 2 to 3 a day A serving is: ???1 cup milk ???1 cup yogurt ???One and a half ounces cheese Best choices: Skim or 1% milk, low-fat or fat-free yogurt or buttermilk, and low-fat cheeses. Lean meats, poultry, fish Servings:??6 or fewer a day A serving is: ???1??ounce cooked meats, poultry, or fish ???1 egg Best choices: Lean??poultry and fish. Trim away visible fat. Broil, grill, roast, or boil instead of frying. Remove skin from poultry before eating. Limit how much red meat you eat.?? Nuts, seeds, beans Servings: 4 to 5 a week A serving is: ???One-third cup nuts (one and a half ounces) ???2 tablespoons nut butter or seeds ???Half a cup cooked dry beans or legumes Best choices: Dry roasted nuts with no salt added, lentils, kidney beans, garbanzo beans, and wholepinto beans. Fats and oils Servings: 2 to 3 a day A serving is: ???1 teaspoon vegetable oil ???1 teaspoon soft margarine ???1 tablespoon??mayonnaise ???2 tablespoons salad dressing Best choices: Nut and vegetable oils??(nontropical vegetable oils), such as olive and canola oil. Sweets Servings: 5 a week or fewer A serving is: ???1 tablespoon sugar, maple syrup, or honey ???1 tablespoon jam or jelly ???1 half-ounce jelly beans (about 15) ???1 cup lemonade Best choices: Dried fruit can be a satisfying sweet. Choose low-fat sweets. And watch your serving sizes! For more on the DASH eating plan, visit: www.nhlbi.nih.gov/health/health-topics/topics/dash ?? [employer]. All rights reserved. This information is not intended as a substitute for professional medical care. Always follow your healthcare professional's instructions. Common Emergency Awareness Tips IS IT A STROKE? Act FAST and Check for these signs: FACE Does the face look uneven? ARM Does one arm drift down? SPEECH Does their speech sound strange? TIME Call at any sign of stroke Voice to Text Technology Disclaimer This note may contain text inserted via Dragon or other voice to text assistive technology and foundation digger, variances may occur. Patient Care team information Care Team Personnel Name: Dale Funes M.D. Position: SHARON FAX ONLY - MD NOT ON STAFF Member Role: Primary Care Physician Address: Address: [address] [place] [id number]- Name: Lg Johnson MD Position: Physician - Cardiology Member Role: Specialist Physician Address: Address: [address] [place] [address] [place] [id number] [place] Care Team Related Persons Name: SEAN LORENZO Address: home [address] [facility], [id number]
--- OUTSIDE RECORDS SUMMARY | 2024-11-03 20:13 | XMS_ITS | Continuity of Care Document ---
Author Organization [facility] Address [address] [place] [id number] Care Team Providers Care Food Production Machine Operator Name Role Phone LesliewesleyDale Primary Care Physician Encounter [facility] Financial Number [id number] Date(s): 10/17/23 - 10/17/[address] [phone] Discharge Disposition: Home or Self Care Attending Physician: Raquel Velasquez MD Admitting Physician: Raquel Velasquez MD Referring Physician: Raquel Velasuqez MD Allergies, Adverse Reactions, Alerts No Known Medication Allergies Assessment and Plan Future Appointments Appointment Date:11/22/2023 01:15:00 PM Scheduled Provider: Location:[facility] Appointment Type:[facility] EKG Appointment Date:11/22/2023 01:30:00 PM Scheduled Provider:Sushma Hurd NP Location:[facility] Appointment Type:[facility] New Patient Appointment Date:04/22/2024 12:00:00 PM Scheduled Provider:Raquel Velasquez MD Location:[facility] Appointment Type:[facility] EP Established Patient Medications Aleve 220 mg oral capsule 220 mg, 1 capsule(s), daily, 0 Start Date: 05/13/19 Status: Ordered allopurinol 300 mg oral tablet 300 mg, 1 tablet(s), Oral, daily, 30 tablet(s), Tablet(s), 0 Start Date: 05/13/19 Status: Ordered amLODIPine 10 mg oral tablet 10 mg, 1 tablet(s), Oral, daily, 90 tablet(s), Tablet(s), 3, 3, Route to Pharmacy Electronically, [facility]/pharmacy #[id number], [id number], 185.4, cm, 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, Height, 140.16, kg, 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, Weight Start Date: 10/16/23 Status: Ordered aspirin [...] Tablet(s), 0, 0, Route to Pharmacy Electronically, [facility]/pharmacy #[id number], [id number], 185.4, cm, 08/21/23 11:21:00 CDT, Height, 137.2, [...] CR, 6, 6, Route to Pharmacy Electronically, [facility]/pharmacy #[id number], [id number], 185.4, cm, 08/21/23 11:21:00 CDT, Height, 137.2, [...] Tablet(s), 3, 3, Route to Pharmacy Electronically, [facility]/pharmacy #[id number], [id number], 185.4, cm, 08/21/23 11:21:00 CDT, Height, 137.2, [...] Completed REMOVAL OF THYROID Comple jennifer Results Radiology Reports * Exam Date Time Procedure Performing Provider Status 10/17/23 1:42 PM MRI CARDIAC MORPHOLO GY W/WO CON Mendel Dickerson abrasive grinder; Modified Notes: (MRI CARDIAC MORPHOLOGY W/WO CON) Reason For Exam: vt MRI CARDIAC MORPHOLOGY W/WO CON EXAM: MRI cardiac morphology and function without with IV contrast , 30511-P HISTORY: 68 year old male with ventricular tachycardia COMPARISON: None TECHNIQUE: Cardiac MRI with and without contrast was performed on a 1.5T scanner. Imaging sequences included cine with SSFP, rest perfusion and late gadolinium enhancement. 14 ml Gadobutrol was administered intravenously without any adverse effects. Quantitative analysis was performed on Beautified42 workstation. Study Quality: fair Artifacts: wrap FINDINGS: Measurements: Left Ventricle LV end-diastolic volume: 123.05 mL LV end-systolic volume: 60.12 mL LV stroke volume: 62.93 mL LVEF: 51.14% Cardiac output: 5.70 L/min LV end-diastolic volume index: 45.87 mL/m2 LV mass index: 64.25g/m2 Global Myocardial T1: 1120 +/-119 ms Mid septal T1: 1075 +/-102 ms Global Myocardial T2: 48 +/-6 ms Mid septal T2: 47 +/-5 ms Right Ventricle RV end-diastolic volume: 161.57mL RV end-systolic volume: 88.97mL RV stroke volume: 72.60mL RVEF: 44.93% RV end-diastolic volume index: 60.24mL/m2 FINDINGS: Ventricles: Left Ventricle: LV size: Normal LV hypertrophy: None LV global function: Normal left ventricular systolic function. There are no regional wall motion abnormalities. LV other: No mass or thrombus is noted Rest perfusion: Normal Late gadolinium enhancement: Suboptimal quality; Possible patchy subendocardial enhancement involving the basal inferolateral wall. There is no myocardial infarction. Right Ventricle: RV size: Normal RV function: Normal right ventricular systolic function. There are no regional wall motion abnormalities. RV hypertrophy: None RV other: No mass or thrombus is noted. Atria: Normal atria. Valves: No significant stenosis or regurgitation. Pulmonary veins:Normal pulmonary venous anatomy with four pulmonary veins draining into the left atrium. Aorta: Left-sided aortic arch with three conventional branching vessels. The aortic root, ascending aorta, and descending aorta are normal in size. Pericardium: No pericardial effusion. Extracardiac Findings: No pleural effusion. This study is intended for cardiac evaluation and extra cardiac structures cannot be accurately evaluated. IMPRESSION: 1. Normal left ventricular size and systolic function. LVEF = 51 %. 2. Normal right ventricular size and systolic function. RVEF = 45 %. 3. On suboptimal quality late gadolinium enhancement imaging there appears to be patchy subendocardial enhancement involving the basal inferolateral wall. This is a non-specific pattern that may indicate regional fibrosis; consider sarcoidosis given clinical context. There is no myocardial infarction. There is no evidence of myocardial inflammation by T2 mapping. Consider FDG-PET study if there is clinical concern for sarcoidosis. Joelle Casarez et al. Reference ranges ( normal values ) for cardiovascular magnetic resonance (CMR) in adults and children: 2020 update. J Cardiovasc Magn Reson. 2020;22(87). Dictating Physician: Raquel Velasquez MD Releasing Physician: Raquel Velasquez MD Signature Electronically Authorized Authorized Date/Time: 17-OCT-2023 02:39 pm * Exam Date Time Procedure Performing Provider Status 10/17/23 1:42 PM MRI NON-CARDIAC MORP HOLOGY FINDINGS Mendel Dickerson abrasive grinder; Auth (Verified) Notes: (MRI NON-CARDIAC MORPHOLOGY FINDINGS) Reason For Exam: vt MRI NON-CARDIAC MORPHOLOGY FINDINGS EXAM: CARDIAC MRI - RADIOLOGY INTERPRETATION OF NONCARDIAC PORTION HISTORY: Ventricular tachycardia TECHNIQUE\E\FINDINGS: MRI was performed through the chest for the purposes of cardiac evaluation. This is the radiology dictation of the noncardiac portion of the exam. The cardiac MRI will be dictated by cardiology separately. In the limited views of the chest, there is no evidence of significant extracardiac mass or effusion. Please refer to the cardiology report for full details of the cardiac MRI. (CPT: 17686 [id number]) Dictating Physician: aGb Avelar MD Releasing Physician: Gab Avelar MD Signature Electronically Authorized Authorized Date/Time: 17-OCT-2023 03:48 pm Social History Social History Type Response Alcohol Current some day alc ohol user, 1-2 times per month Substance Abuse Never drug user Smoking Status Former smoker;Never; Tobacco Cessation Counseling Requested No; Stopped at age: 46; entered on: 08/21/23 Sex Note * Event Display: Authorization to Treat Authored Date: [id number] * Event Display: Authorization to Treat Authored Date: * Event Display: ROI_Correspondence * Event Display: Patient Provided Clipboard Authored Date: [id number] Ambulatory Comprehensive Intake Ambulatory Comprehensive IntakeOriginating Source: PATIENTOriginating Author: LIBERTAD Randhawa Submission Date: May 11, 2019 5:03:29 PM CDT LIBERTAD LORENZO : 1955 Sex: Male MRN(s): [id number] Ambulatory Comprehensive Intake Question Response Advance Directive No; Patient DECLINED additional information Advance Directive Date Location of Advance Directive Type of Advance Directive Patient has Court Appointed Guardian No Location of Court Appointed Guardian Documentation Legal Guardian Medical Power of Photo Retoucher Name Patient Requests Counseling Regarding Advance Directives History of Falling in Last 3 Months, Including Since Admission No Impaired Judgment/Lack of Safety Awareness No Agitation No Impaired Gait, Shuffle, Wide Base, Unsteady Walk No Ever Experience Dizziness or Vertigo No Ever Wet or Soil Yourself on Way to Bathroom No Medical Devices None Spa Concierge Card Other Spa Concierge Details Radiology Testing Barriers/Precautions None Menstrual Status N/A Last Menstrual Period Previous LMP Date Last Menstrual Period Description Menarche Onset Menarche Frequency Menarche Length Menstrual Comments PAP result HPV Coping Stressors Emotional Support Available Yes Do You Receive Comfort From Spiritual Practices Yes Cheondoism Preference Non-advent Spiritual Practice Comments Weight Change >10lbs No [...] voices No Marital or relationship problems 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 Position: SHARON FAX ONLY - MD NOT ON STAFF Member Role: Primary Care Physician Address: Address: [address] [place] [address]- Name: Raquel Velasquez MD Position: Physician - Cardiology Member Role: Die Tripper Address: Address: [address] [place] [address] Dr [address] [place] [address] Name: Lg Johnson MD Position: Physician - Cardiology Member Role: Specialist Physician Address: Address: [address] [place] [address] [address] Care Team Related Persons Name: TAY LORENZO Name: SEAN LORENZO Address: home [address] [facility], [phone]
--- OUTSIDE RECORDS SUMMARY | 2024-11-03 20:13 | XMS_ITS | Continuity of Care Document ---
Author Organization [facility] Address [address] [place] [phone] Care Team Providers Care Billing Machine Operator Name Role Phone Dale Funes Primary Care Physician [phone] Encounter [facility] Financial Number [id number] Date(s): 08/05/24 - 08/05/24 [facility] [address] [phone] Encounter Diagnosis Obesity(Discharge Diagnosis) - 08/05/24 Diabetes(Discharge Diagnosis) - 08/05/24 HLD (hyperlipidemia)(Discharge Diagnosis) - 08/05/24 Discharge Disposition: Home or Self Care Attending Physician: Brandi Munguia PIN TICKET MACHINE OPERATOR Allergies, Adverse Reactions, Alerts No Known Medication Allergies Assessment and Plan Future Appointments Appointment Date:08/08/2024 11:30:00 AM Scheduled Provider:Katie Munoz RD,LD,LINDSEY Location:[facility] Appointment Type:Intensive Behavioral Therapy, Follow-up Appointment Date:02/25/2025 12:15:00 PM Scheduled Provider: Location:[facility] Appointment Type:[facility] EKG Appointment Date:02/25/2025 12:30:00 PM Scheduled Provider:Sushma Hurd NP Location:[facility] Appointment Type:[facility] Follow Up Appointment Date:04/28/2025 12:00:00 PM Scheduled Provider:Raquel Velasquez MD [facility] EP Established Patient Medications allopurinol 300 mg [...] 90 tablet(s), 3, Route to Pharmacy Electronically, [facility], [id number], 185.4, cm, 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, Height, 138.1, kg, 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, Weight Start Date: 01/10/24 Status: Ordered metFORMIN 500 mg oral tablet, extended release 1,000 mg, 2 tablet(s), bid, 0 Start Date: 05/13/19 Status: Ordered Metoprolol Succinate ER 25 mg oral tablet, extended release 1 tablet(s), Oral, daily, 90 tablet(s), 2, Route to Pharmacy Electronically, [facility], [id number], 185.4, cm, 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, Height, 138.1, kg, 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, Weight Start Date: 02/05/24 Status: Ordered Multivitamin oral tablet 1 tablet(s), Oral, daily, 30 tablet(s), Tablet(s), 0 Start Date: 05/13/19 Status: Ordered Ozempic 8 mg/3 mL (2 mg dose) subcutaneous solution 2 mg, SubQ, weekly, 9 mL, Solution, 4, 4, Route to Pharmacy Electronically, [facility]/pharmacy #[id number], [id number], 185, cm, 05/09/24 14:21:00 CDT, Height, 128, [...] 90 tablet(s), 3, Route to Pharmacy Electronically, [facility] 00313, [id number], 185, cm, 05/09/24 14:21:00 CDT, Height, 129, [...] 41 and 37. Note * Event Display: Consent/Registration Forms * Event Display: Consent/Registration Forms * Event Display: ROI_Correspondence * Event Display: Patient Provided Clipboard Authored Date: [id number] Ambulatory Comprehensive Intake Ambulatory Comprehensive IntakeOriginating Source: PATIENTOriginating Author: LIBERTAD Randhawa Submission Date: May 11, 2019 5:03:29 PM CDT LIBERTAD LORENZO : 1955 Sex: Male MRN(s): [id number] Ambulatory Comprehensive Intake Question Response Advance Directive No; Patient DECLINED additional information Advance Directive Date Location of Advance Directive Type of Advance Directive Patient has Court Appointed Guardian No Location of Court Appointed Guardian Documentation Legal Guardian Medical Power of Matrix Worker Name Patient Requests Counseling Regarding Advance Directives History of Falling in Last 3 Months, Including Since Admission No Impaired Judgment/Lack of Safety Awareness No Agitation No Impaired Gait, Shuffle, Wide Base, Unsteady Walk No Ever Experience Dizziness or Vertigo No Ever Wet or Soil Yourself on Way to Bathroom No Medical Devices None Burner Shaft Card Other Burner Shaft Details Radiology Testing Barriers/Precautions None Menstrual Status N/A Last Menstrual Period Previous LMP Date Last Menstrual Period Description Menarche Onset Menarche Frequency Menarche Length Menstrual Comments PAP result HPV Coping Stressors Emotional Support Available Yes Do You Receive Comfort From Spiritual Practices Yes Latter-Day Preference Non-yarsani Spiritual Practice Comments Weight Change >10lbs No [...] voices No Marital or relationship problems No coding director awakenings No Chief Complaint Pain Present Yes actual or suspected pain Numeric Rating Pain Scale 6 Primary Pain Location Back - Lower Primary Pain Comments Neck and back pain caused by accident Cardiology Outpatient Note * Brandi Munguia PIN TICKET MACHINE OPERATOR: PERFORM Event Display: Cardiology Office/Clinic Note Authored Date: Patient Information Name:LIBERTAD LORENZO Address: [address] [place] [id number] Sex:Male Date of :1955 Emergency Contact:TAY LORENZO Location:[facility] Registration Date and Time:08/05/2024 13:00 CDT Primary Care Physician: Dale Funes M.D., Chief Complaint Weight management History of Present Illness Weight 279- down 1lb?? Will start 2mg ??on 08/14 Exercise: more walking, just finished job at [employer]?? Diet: following with dietitian, ??hasn???t been great working on getting better. ?? A1c with pcp?? Review of Systems ?Constitutional ?Fever?No?.?Weight Gain?No?.?Weight Loss?No?.?Fatigue?No?.?Eyes [...] refer to the HPI. Assessment/Plan Orders: semaglutide(Ozempic 8 mg/3 mL (2 mg dose) subcutaneous solution), 2 mg, SubQ, weekly, 4 refills Hemoglobin A1c, 08/05/24, Blood, ROUTINE, Routine, Order for Future Visit, Nurse Collect, Print Label, Diabetes, Not Required, Hold Until Collected ?? #weight loss management BMI 40.1 rk:??128kg?initial 142.4 down 30 lb?? Following with behavioral dietitian?? Continue Ozempic 1 mg Monday 9???12 Increase to 2mg 08/14 no significant symptoms?? Follow-up 10???7 as scheduled or before and if needed ?? #h/o abnormal stress test, non-obstructive disease on CCTA, moderate to severe CAC -repeat CCTA with diffuse non-obstructive CAD, CAC 393 - + risk factors: HTN, HLD, obesity, former smoker, DM, known non-obstructive CAD -TTE reviewed -on ASA 81 mg and rosuvastatin ?? #DM2 a1c 9% 3 weeks ago -on metformin Repeat with PCP coming up will forward labs ?? # HTN -amlodipine to 10 mg/day- counseled re: edema -continue lisinopril 40 mg -can discontinue metoprolol- started for PVCs ?? continue current meds DASH diet counseling ?? #Palpitations, PVCs -4% PVCs and 3 episodes v-tach -continue metoprolol XL 25 mg -CMR with nonspecific I/L enhancement; neg FDG PET -underwent PVC ablation in Nov 2023- doign well ?? # GERD -on PPI ?? #ZULEYKA -on CPAP- continue ?? # HLD -last FLP with LDL 53 -continue rosuvastatin??at 20 mg ?? #. L carotid bruit -carotid dopplers reviewed -GDMT as above -on ASA and rosuvastatin with good control Follow Up virtual visit 09/06 @ 1pm Problem List/Past Medical History Ongoing Abnormal stress [...] Oral, daily ergocalciferol 50,000 units oral capsule, 17567 unit(s)= 1 capsule(s), Oral, q7days lisinopril 40 [...] ?Positive ?Diabetes ?Brother ?Positive ?Heart disease ? Lab Results CBC Latest Results WBC: 9.1 Thousand/uL (12/19/23) Hemoglobin: 13.8 g/dL (12/19/23) Hematocrit: 42.6 % (12/19/23) MCV: 87.1 fL (12/19/23) Platelet: 222 Thousand/uL (12/19/23) ?? Basic Metabolic Panel Latest Results BUN: 18 mg/dL [7 mg/dL - 25 mg/dL] (07/08/24) Calcium: 9.3 mg/dL [8.6 mg/dL - 10.3 mg/dL] (07/08/24) Chloride: 104 mmol/L [98 mmol/L - 110 mmol/L] (07/08/24) CO2: 23 mmol/L [20 mmol/L - 32 mmol/L] (07/08/24) Creatinine: 1.01 mg/dL [0.7 mg/dL - 1.28 mg/dL] (07/08/24) Glucose:??126 mg/dL??High [65 mg/dL - 99 mg/dL] (07/08/24) Potassium: 3.8 mmol/L [3.4 mmol/L - 4.8 mmol/L] (07/08/24) Sodium: 138 mmol/L [135 mmol/L - 146 mmol/L] (07/08/24) ?? CMP Latest Results BUN: 18 mg/dL (07/08/24) Calcium: 9.3 mg/dL (07/08/24) Chloride: 104 mmol/L (07/08/24) CO2: 23 mmol/L (07/08/24) Creatinine: 1.01 mg/dL (07/08/24) Potassium: 3.8 mmol/L (07/08/24) Sodium: 138 mmol/L (07/08/24) Glucose:??126 mg/dL??High (07/08/24) Protein, Total: 7.1 g/dL (07/08/24) Albumin: 4 g/dL (07/08/24) Alk Phos: 74 U/L (07/08/24) AST: 27 U/L (07/08/24) ALT: 32 U/L (07/08/24) Bilirubin, Total: 0.7 mg/dL (07/08/24) ?? Lipid Panel Latest Results Cholesterol: 101 mg/dL (07/08/24) Triglyceride: 114 mg/dL (07/08/24) LDL (Calc): 47 mg/dL (calc) (07/08/24) Direct HDL:??34 mg/dL??Low (07/08/24) ?? Troponin Results?? No qualifying data available. ?? PT/INR Latest Results?? No qualifying data available. ?? ABG Latest Results Oxygen Saturation: 98 % (05/01/24 11:23:00) Voice to Text Technology Disclaimer This note may contain text inserted via Dragon or other voice to text assistive technology and micro photographer, variances may occur. Patient Care team information Care Team Personnel Name: Brandi Munguia PIN TICKET MACHINE OPERATOR Position: AMB PIN TICKET MACHINE OPERATOR/PA Member Role: Nurse Practitioner Address: Address: [address] [place] [address] [place] Name: Dale Funes M.D. Position: SHARON FAX ONLY - MD NOT ON STAFF Member Role: Primary Care Physician Address: Address: [address] [place], [place] [id number]- Name: Raquel Velasquez MD Position: Physician - Cardiology Member Role: Central Services Tech Address: Address: [address] [place] [address] [address] [place] [address] [place] Name: Lg Johnson MD Position: Physician - Cardiology Member Role: Specialist Physician Address: Address: [address] [place] [address] [place] Name: Nora Grimes YARN DRY ROOM WORKER Position: AMB PIN TICKET MACHINE OPERATOR/PA Member Role: Nurse Practitioner Address: Address: [address] [place] [address] [place] Name: Sushma Hurd PIN TICKET MACHINE OPERATOR Position: AMB PIN TICKET MACHINE OPERATOR/PA Member Role: Nurse Practitioner Address: Address: [address] [place] [address] [place] Care Team Related Persons Name: TAY LORENZO Name: SEAN LORENZO Address: home [address] [facility], [id number]
--- OUTSIDE RECORDS SUMMARY | 2024-11-03 20:13 | XMS_ITS | Continuity of Care Document ---
Author Organization [facility] Address [address] [place] [id number] Care Team Providers Care Levi Maker Name Role Phone Dale Funes Rohit Primary Care Physician [phone] Encounter [facility] Financial Number [id number] Date(s): 04/22/24 - 04/22/24 [facility] [address] [phone] Encounter Diagnosis Chest pain(Discharge Diagnosis) - 04/22/24 Elevated coronary artery calcium score(Discharge Diagnosis) - 04/22/24 Former smoker(Discharge Diagnosis) - 04/22/24 HLD (hyperlipidemia)(Discharge Diagnosis) - 04/22/24 PVCs (premature ventricular contractions)(Discharge Diagnosis) - 04/22/24 Snoring(Discharge Diagnosis) - 04/22/24 Discharge Disposition: Home or Self Care Attending Physician: Raquel Velasquez MD Allergies, Adverse Reactions, Alerts No Known Medication Allergies Assessment and Plan Future Appointments Appointment Date:05/01/2024 11:00:00 AM Scheduled Provider: [facility] App[facility] Type:[facility] EP Established Patient Appointment Date:02/25/2025 12:15:00 PM Scheduled Provider: Location:[facility] Appointment Type:HCS EKG Appointment Date:02/25/2025 12:30:00 PM Scheduled Provider:Sushma Hrud NP Location:[facility] Appointment Type:HCS Follow Up Appointment Date:04/28/2025 12:00:00 PM Scheduled Provider:Raquel Velasquez MD Location[facility] Appointment Type:[facility] EP Established Patient Medications Aleve 220 mg [...] 90 tablet(s), 3, Route to Pharmacy Electronically, [id number], [id number], 185.4, cm, 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, 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, 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, kg, 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, 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 Start Date: 01/10/24 Status: Ordered metFORMIN 500 mg oral tablet, extended release 1,000 mg, 2 tablet(s), bid, 0 Start Date: 05/13/19 Status: Ordered Metoprolol Succinate ER 25 mg oral tablet, extended release 1 tablet(s), Oral, daily, 90 tablet(s), 2, Route to Pharmacy Electronically, [id number], [id number], 185.4, cm, 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, Height, 138.1, kg, 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 Hospital Discharge Instructions Patient Education 04/22/2024 12:08:01 CR Heart Healthy Diet (CUSTOM) Heart Healthy Diet Improving diet and lifestyle is an important part of treating heart disease. If you have abnormal blood lipids and /or have had a stroke or heart disease, watching your diet can help keep you healthy. Your dietitian or doctor may provide more specific guidelines for you to follow. Caloric Intake and Physical Activity Balance caloric intake and physical activity to achieve or maintain a healthy body weight. These suggestions can help: ??? Prepare and eat small portions of food. ??? Read labels to understand how many calories you eat each day. ??? Keep a food diary, most people underestimate how much they consume. ??? Exercise 30-60 minutes per day, if possible. ??? Drink water and skip the soda and high calorie fruit juices. Benefit: The proper balance of caloric intake and physical activity may help keep you from becomingoverweight or help you to lose weight. Being overweight is a risk factor for heart disease. Fruits and Vegetables Consume a diet rich in fruits and vegetables. Follow these tips: ??? Enjoy brightly colored fresh fruits and vegetables for the most nutrients (for example: spinach, carrots, peaches and berries tend to be higher in vitamins and minerals then potatoes and corn.) ??? Choose a variety of fruits and vegetables each day. ??? When fresh fruits foods are not available choose frozen or canned vegetables and fruits in water without added sugars, saturated fats or salt. ??? Don???t buy lots of fruit juice. It doesn???t provide the fiber that whole fruit does and can be high in calories. ??? Some cholesterol lowering medications may interact with grapefruit, grapefruit juice, pomegranate and pomegranate juice. Whole-Grain, High Fiber Foods Choose whole-grain, high fiber foods, such as those containing whole wheat, oats, oatmeal, whole rye, whole- grain corn and buckwheat. Choose breads and other foods that list whole- grains as the first item in the ingredient list. Limit the amount of bakery products you purchase, including doughnuts, pies, cakes and cookies. Look instead for fat-free or low-fat and low-sodium varieties of crackers, snack chips, cookies and cakes. Remember, that most store-baked goods are made with egg yolks, saturated fats or trans fats. Read the nutrition facts label! Buy store-baked goods that are made with polyunsaturated or monounsaturated oils, skim or reduced-fat milk, and egg whites, or make your own. Enjoy whole-grain, high fiber foods, such as: ??? Whole-wheat breads ??? Bran cereals ??? Oatmeal ??? [place] ??? Barley ??? [place] ??? Brown rice ??? Wild rice ??? Buckwheat ??? Triticale ??? Bulgar ??? Millet ??? Quinoa ??? Sorghum Benefit: Whole-grains are loaded with nutrients, more filling and help to decrease your risk of heart disease. Meat, Poultry, Fish & Nuts Buy and consume more fish. You should eat one serving of grilled or baked fish (not fried) at leasttwice a week. Select oily fish when possible, such as: ??? [place] ??? Tuna ??? Mackerel ??? Sardines ??? [place] Choose lemon or [place] juices and spices to prepare fish. Don???t add cream sauces. Choose cuts of red meat and pork labeled ???loin?? and ???round,?? they usually have the least fat. Buy ???Choice?? or ???Select?? grades of beef rather than ???Prime,?? and be sure to trim off the fat before cooking. When buying or eating poultry, choose the leaner, light meat (breasts) rather than fatty dark meat (legs and thighs). Remove the skin before cooking. Select more meat substitutes such as dried beans, peas, lentils or tofu and use them as entrees or in salads or soups. One cup of cooked beans, peas, lentils or tofu can replace a two-ounce serving of meat, poultry or fish. Nuts and seeds can be a good source of protein and polyunsaturated fats but they tend to be high incalories, so eat them in moderation. Oils, Dressings and Shortenings ??? Use fats and oils in limited amounts. ??? When you must use oils, choose the ones lowest in saturated fats, trans fats and cholesterol???including olive oil, canola oil, corn oil, safflower oil, sesame oil soybean oil and sunflower oil. ??? Avoid palm oil, coconut oil and cocoa butter. ??? Buy a nonstick carrillo and use nonstick vegetable oil spray when cooking ??? Choose reduced-fat, low-fat, light or fat-free salad dressings to use with salads, for dips or as marinades. Milk, Cheese, Butter and Eggs ??? Select fat-free (Skim) or low-fat (1%) milk ??? Avoid milk that has added flavorings, such as chocolate, strawberry or vanilla. They usually have added sugars and calories. ??? Choose fat-free, low-fat or reduced fat cheeses ??? Use egg whites or egg substitutes instead of eggs. (Substitute two egg whites for each egg yolkin recipes that call for eggs) ??? Don???t buy a lot of butter, cream and ice cream. Save those for special occasions and even then, limit how much you eat. These foods have more saturated fat than whole milk. Salt and Sodium Increased amounts of Salt and Sodium in the diet are related to high blood pressure and can have anadverse affect on congestive heart failure. ??? Table salt is 40% Sodium and 1 teaspoon of salt is 2300mg of Sodium ??? Keep the salt shaker off of the table at home ??? Avoid seasoned salt, garlic salt and table salt (may use garlic powder, onion powder, low sodium lemon pepper seasoning) ??? Use reduced sodium versions of food ??? Limit high sodium condiments (soy sauce, ketchup) ??? Avoid bouillon, canned soups, pickles, olives, canned vegetables (use low sodium varieties) Alcohol If you consume alcohol, do so in moderation. Follow this advice if alcohol intake is allowed with you medications and diagnosis: ??? Choose one drink/day for women and two drinks/day for men or less ??? Do not drink if you cannot limit your alcohol intake or if it interacts with a medicine that you are taking. (Check with your physician or pharmacist). CR: Heart Healthy Diet [id number] Rev: 06/11 Note * Alvaro Woodward Airconditioning Plant Operator: PERFORM Event Display: Patient Documentation AMB Authored Date: [id number] * Event Display: ROI_Correspondence * Event Display: Patient Provided Clipboard Authored Date: [id number] Ambulatory Comprehensive Intake Ambulatory Comprehensive IntakeOriginating Source: PATIENTOriginating Author: LIBERTAD Randhawa Submission Date: May 11, 2019 5:03:29 PM PABLITOT LIBERTAD LORENZO : 1955 Sex: Male MRN(s): [id number] Ambulatory Comprehensive Intake Question Response Advance Directive No; Patient DECLINED additional information Advance Directive Date Location of Advance Directive Type of Advance Directive Patient has Court Appointed Guardian No Location of Court Appointed Guardian Documentation Legal Guardian Medical Power of Shift Supervisor Rn Name Patient Requests Counseling Regarding Advance Directives History of Falling in Last 3 Months, Including Since Admission No Impaired Judgment/Lack of Safety Awareness No Agitation No Impaired Gait, Shuffle, Wide Base, Unsteady Walk No Ever Experience Dizziness or Vertigo No Ever Wet or Soil Yourself on Way to Bathroom No Medical Devices None Hand Inserter Operator Card Other Hand Inserter Operator Details Radiology Testing Barriers/Precautions None Menstrual Status N/A Last Menstrual Period Previous LMP Date Last Menstrual Period Description Menarche Onset Menarche Frequency Menarche Length Menstrual Comments PAP result HPV Coping Stressors Emotional Support Available Yes Do You Receive Comfort From Spiritual Practices Yes Tenriism Preference Non-cheondoism Spiritual Practice Comments Weight Change >10lbs No [...] voices No Marital or relationship problems No assembler radio and electrical awakenings No Chief Complaint Pain Present Yes actual or suspected pain Numeric Rating Pain Scale 6 Primary Pain Location Back - Lower Primary Pain Comments Neck and back pain caused by accident Cardiology Outpatient Note * Raquel Velasquez MD: PERFORM, MODIFY Event Display: Cardiology Office/Clinic Note Authored Date: Patient Information Name:LIBERTAD LORENZO Address: [address] [place] [id number] Sex:Male Date of :1955 Emergency Contact:TAY LORENZO Location:[facility] Registration Date and Time:04/22/2024 12:00 CDT Primary Care Physician: Dale Funes M.D., Attending Physician: Raquel Velasquez MD, History of Present Illness ?? 68 year old male presenting for f/u. Last seen by me??Sep 2023.??Referred by Dr. Dale Funes. He has a h/o HTN, HLD, DM-2, ZULEYKA- on CPAP, hypothyroidism, Rushing's esophagus/GERD. Has a h/o abnormal EKG and h/o abnormal stress test with small to moderate area of ischemia in the inferior wall. Had CCTA with non- obstructive disease in the RCA.?Endorsed palpitations to his PCP. But no CP , SOB. Stress test was done prior to his lumbar surgery and he was cleared for the surgery. At the last visit was c/o occ CP at night . Occ dyspnea. Denies syncope. 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 Had monitor showing 3 episodes of v- tach and 4% PVCs. Has been started on metoprolol. CMR done with nonspecific enhancement-FDG PEt neg. CCTA with non-obstructive CAD. Denies syncope, palpitations, chest pain. Seen by EP for PVCs/VT- had PVC ablation 11/2023. Says he feels great- denies Cp, SOB. No palpitations, dizziness. Review of Systems Pertinent findings as per HPI, all other systems are negative. Vitals and Measurements Vital Signs Height: 185.4 cm Height Inches Conversion: 73 Weight: 141.07 kg Weight in Pounds (kg conversion): 310.4 Body Surface Area: 2.6954 m2 Body Mass Index: 41.04 kg/m2 Systolic Blood Pressure: 113 mm Hg Diastolic Blood Pressure: 70 mm Hg Peripheral Pulse Rate: 86 bpm Oxygen Saturation: 96 % Physical Exam Gen -??Well-appearing, no acute distress HEENT-anicteric, conjunctiva pink Neck-no bruits, JVP normal CV- RRR, no M, no S3 Resp - clear b/l abd [...] -on ASA 81 mg and?? rosuvastatin ?? 2. DM2 -on metformin -on lisinopril 40 mg ?? 3. HTN -amlodipine to 10 mg/day- counseled re: edema -continue lisinopril 40 mg -can discontinue metoprolol- started for PVCs -will refer for weight mgmt clinic for consideration of GLP-1 agonist continue current meds DASH diet counseling ?? 4. palpitations, PVCs -4% PVCs and 3 episodes v-tach -continue metoprolol XL 25 mg -CMR with nonspecific I/L enhancement; neg FDG PET -underwent PVC ablation in Nov 2023- doign well ?? 5. GERD -on PPI ?? 6. ZULEYKA -on CPAP- continue ?? 7. HLD -last FLP with LDL 53 -continue rosuva at 20 mg -nalso taking simvastatin- discontinue ?? 8. L carotid bruit -carotid dopplers reviewed -GDMT as above -on ASA and rosuvastatin with good control Problem List/Past Medical History Ongoing Abnormal stress test Carotid bruit Chest pain Elevated coronary artery calcium score Ex-smoker HLD (hyperlipidemia) Mild HTN Obesity Pre-operative exam PVCs (premature ventricular contractions) Snoring Historical No qualifying data Procedure/Surgical History ???Cystectomy (2021)???Back care (2020)???Gallbladder operation (2018)???Kidney stone analysis (2008)???Spinal fusion (2007)???Hemorrhoid operation (1999)???bilateral knee surgeries???bilateral shoulder surgeries???cholecystectomy???neck surgery???REMOVAL OF THYROID Medications Aleve 220 mg oral capsule, 220 mg= 1 capsule(s), daily allopurinol 300 mg oral tablet, 300 mg= 1 tablet(s), Oral, daily amLODIPine 5 mg oral tablet, 5 mg= 1 tablet(s), Oral, daily aspirin 81 mg oral enteric coated tablet, 81 mg= 1 tablet(s), Oral, daily Benadryl 25 mg oral tablet, 25 mg= 1 tablet(s), bid Calcium cholecalciferol 5000 intl units oral capsule, 5000 unit(s)= 1 capsule(s), daily DULoxetine 30 mg ora capsule, 30 mg= 1 capsule(s), Oral, daily lisinopril 40 mg oral tablet, 1 tablet(s), [...] oral tablet, 20 mg= 1 tablet(s), Oral, qhs Senna 8.6 mg oral tablet, qpm Synthroid [...] ?? Basic Metabolic Panel Latest Results BUN: 17 mg/dL [7 mg/dL - 25 mg/dL] (12/19/23) Calcium: 9 mg/dL [8.6 mg/dL - 10.3 mg/dL] (12/19/23) Chloride: 102 mmol/L [98 mmol/L - 110 mmol/L] (12/19/23) CO2: 27 mmol/L [20 mmol/L - 32 mmol/L] (12/19/23) Creatinine: 1.06 mg/dL [0.7 mg/dL - 1.35 mg/dL] (12/19/23) Glucose:??219 mg/dL??High [65 mg/dL - 99 mg/dL] (12/19/23) Potassium: 4.3 mmol/L [3.5 mmol/L - 5.3 mmol/L] (12/19/23) Sodium: 140 mmol/L [135 mmol/L - 146 mmol/L] (12/19/23) ?? CMP Latest Results BUN: 17 mg/dL (12/19/23) Calcium: 9 mg/dL (12/19/23) Chloride: 102 mmol/L (12/19/23) CO2: 27 mmol/L (12/19/23) Creatinine: 1.06 mg/dL (12/19/23) Potassium: 4.3 mmol/L (12/19/23) Sodium: 140 mmol/L (12/19/23) Glucose:??219 mg/dL??High (12/19/23) Protein, Total: 6.8 g/dL (10/12/23) Albumin: 4.1 g/dL (10/12/23) Alk Phos: 85 U/L (10/12/23) AST: 27 U/L (10/12/23) ALT: 37 U/L (10/12/23) Bilirubin, Total: 0.6 mg/dL (10/12/23) ?? Lipid Panel Latest Results Cholesterol: 112 mg/dL (10/12/23) Triglyceride:??154 mg/dL??High (10/12/23) LDL (Calc): 53 mg/dL (calc) (10/12/23) Direct HDL:??35 mg/dL??Low (10/12/23) ?? Troponin Results?? No qualifying data available. ?? PT/INR Latest Results?? No qualifying data available. ?? ABG Latest Results Oxygen Saturation: 97 % (02/23/24 12:35:00) Diagnostic Results 05/07/2019 [place] ? Conclusions: 1. [...] EKG- SR with PVCs, inferior q waves ?Monitor 08/2023 1. The underlying rhythm was normal sinus rhythm with an average rate of 82 beats per?? minute. 2. Ventricular ectopy was evident 4 [...] block and bundle branch block were noted. ? Carotid duplex 08/2023 ?? Conclusions: 1. Atherosclerotic changes as noted in the carotid segments above without evidence of?? hemodynamically significant stenosis. 2. Antegrade flow is noted in bilateral vertebral arteries. 3. Per image, the left internal carotid artery stenosis appears closer to 50%. ?? TTE 08/2023 ?? 1. Technically difficult study, ultrasound enhancing agent was used for better?? endocardial visualization. 2. Normal left ventricular cavity size. Normal left ventricular systolic function. The?? left ventricular ejection fraction is visually estimated at 50-55 %. The left ventricular?? ejection fraction is measured by Hendrickson's biplane method at 50 %. Normal left?? ventricular diastolic function for age as measured by tissue Doppler/Mitral Doppler?? indices. No left ventricular thrombus visualized. 3. Normal right ventricular size. 4. Normal appearance of the mitral valve leaflets. Mild mitral regurgitation. No mitral?? stenosis. 5. Probable trileaflet aortic valve, although not all leaflets are visualized. No?? hemodynamically significant aortic stenosis by Doppler. No aortic regurgitation. 6. The tricuspid valve is not well visualized. There is trace tricuspid regurgitation. 7. Normal pericardium with no significant pericardial effusion. 8. Ascending aorta is mildly dilated 3.8 cm. 9. The inferior vena cava is not well visualized. 10. Compared with prior study of 05/14/19 no substantial changes. The aorta may be better?? visualized on the current study. ?CCTA 08/2023 IMPRESSION: ?? 1. Diffuse non-obstructive coronary artery disease as detailed with mild (25-49%) calcified plaque in the mid left anterior descending artery, first diagonal branch, ramus intermedius branch and the mid to distal right coronary artery. There is no evidence of hemodynamically significant disease by CT-FFR analysis.? 2. CAD-RADS 2/P3/I-. Consider risk factor modification and preventive pharmacotherapy. ?? 3. The Agatston CAC score is [393] which is in the [70]%ile for the patient's age, gender, and ethnicity. The estimated probability of a non-zero score per the BERMUDEZ study calculator is [82]%.CAC-DRS Category: A[3]/N[4]. ?? 4. Mildly dilated ascending aorta measuring 38 x 38 mm. ??Mild diffuse calcified and non-calcified plaque. ?? In comparison to the prior study from 05/20/2019, there has been mild progression of coronary artery disease but still non-obstructive.? CMR 10/17/2023 ?? 1. ??Normal left ventricular size and systolic function. LVEF = 51 %. ?? 2. ??Normal right ventricular size and systolic function. RVEF = 45 %. ?? 3. ??On suboptimal quality late gadolinium enhancement imaging there appears to be patchy subendocardial enhancement involving the basal inferolateral wall. This is a non-specific pattern that may indicate regional fibrosis; consider sarcoidosis given clinical context. There is no myocardial infarction. There is no evidence of myocardial inflammation by T2 mapping. Consider FDG-PET study if there is clinical concern for sarcoidosis. ?? FDG PET 10/26/2023 ?? 1. There is no evidence of active myocardial inflammation. There is no evidence of underlying active cardiac sarcoidosis. ?? 2. Normal rest perfusion. Normal left ventricular systolic function with LVEF 58%. ? Nov 2023 EPS ?Procedure Performed ?1. EP study with left atrial recording - 55694 ?2. Intracardiac ultrasound ??- 34671 ?3. Ablation of VT/PVC - 34515 ?Blood Loss: <10cc ?Complications: None ?Anesthesia: see nursing notes for drug totals ?Operative Course: ?After discussing the risks, benefits and alternatives of the procedure, the patient agreed to proceed with the procedure. Conscious sedation was utilized. Please see nursing notes for drug totals. Access was obtained by modified Seldinger technique. An eight [place] sheath and seven amharic sheath were placed in the right femoral vein. An eight [place] Sheath was placed in the right ??femoral artery. ??Under 3D mapping guidance, all catheters were placed including a CS catheter in the CS, ICE catheter in RA and a ablation catheter in area of interest. The patient presented in normal sinus rhythm with frequent PVCs. ??Access to the RFA with 8FR by modified Seldinger technique was utilized. Heparin given IV.??Programmed electrical stimulation was performed. Activation mapping of the RVOT, aortic cusps and distal CS near take off of Left main and LAD/LCX bifurcation. Pacemapping was performed at the earliest activation sites. The earliest site was noted near the junction of??RCC and LCC. Unipolar mapping confirmed the earliest site as 30 ms presystolic. Further mapping was performed on and off isoproterenol. Finally a 3.5 mm Biosense Morrison Contact Force??catheter was introduced atthe area of earliest activation. Multiple 20 ??Watt applications of 30-60 sec duration were delivered with no evidence of hemodynamic compromise. This eliminated further PVC from this focus. A 30 minute wait time was allowed with no further activity.? Voice to Text Technology Disclaimer This note may contain text inserted via Dragon or other voice to text assistive technology and grinding machine tender, variances may occur. Patient Care team information Care Team Personnel Name: Dale Funes M.D. Position: [facility] FAX ONLY - MD NOT ON STAFF Member Role: Primary Care Physician Address: Address: [address] [place] [id number]- Name: Raquel Velasquez MD Position: Physician - Cardiology Member Role: Concrete Worker Address: Address: [address] [place] [address] Dr [address] [place] [address] [place] Name: Lg Johnson MD Position: Physician - Cardiology Member Role: Specialist Physician Address: Address: [address] [place] [address] [address] [place] [address] [place] Name: Nora Grimes CONTACT CENTER ANALYST Position: AMB RESIDENT PHYSICIAN/PA Member Role: Nurse Practitioner Address: Address: [address] [place] [address] Name: Sushma Hurd RESIDENT PHYSICIAN Position: AMB RESIDENT PHYSICIAN/PA Member Role: Nurse Practitioner Address: Address: [address] [facility] [address] [place], [place] [address] Care Team Related Persons Name: TAY LORENZO Name: SEAN LORENZO Address: home [address] [facility], [phone]
--- OUTSIDE RECORDS SUMMARY | 2024-11-03 20:13 | XMS_ITS | Continuity of Care Document ---
Author Organization [facility] Address [address] [place] [phone] Care Team Providers Care Spray Unit Feeder Name Role Phone Dale Funes Primary Care Physician Encounter [facility] Financial Number [id number] Date(s): 05/01/24 - 05/01/24 [facility] [address] [phone] Encounter Diagnosis CAD (coronary artery disease)(Discharge Diagnosis) - 05/01/24 Obesity(Discharge Diagnosis) - 05/01/24 Discharge Disposition: Home or Self Care Attending Physician: Brandi Munguia PHYSICAL THERAPIST CLINIC DIRECTOR Allergies, Adverse Reactions, Alerts No Known Medication Allergies Assessment and Plan Future Appointments Appointment Date:05/27/2024 12:00:00 PM Scheduled Provider: [facility] App[facility] Type:Virtual Telephone Visit Appointment Date:02/25/2025 12:15:00 PM Scheduled Provider: Location:[facility] Appointment Type:[facility] EKG Appointment Date:02/25/2025 12:30:00 PM Scheduled Provider:Sushma Hurd NP Location:[facility] Appointment Type:[facility] Follow Up Appointment Date:04/28/2025 12:00:00 PM Scheduled Provider:Raquel Velasquez MD Location[facility] Appointment Type:[facility] EP Established Patient Medications allopurinol [...] 90 tablet(s), 3, Route to Pharmacy Electronically, [id number], [id number], 185.4, cm, 12/28/23 10:46:00 [employer], Height, 138.1, kg, 12/28/23 10:46:00 [employer], Weight Start Date: 01/10/24 Status: Ordered metFORMIN 500 mg oral tablet, extended release 1,000 mg, 2 tablet(s), bid, 0 Start Date: 05/13/19 Status: Ordered Metoprolol Succinate ER 25 mg oral tablet, extended release 1 tablet(s), Oral, daily, 90 tablet(s), 2, Route to Pharmacy Electronically, [facility], [id number], 185.4, cm, 12/28/23 10:46:00 [employer], Height, 138.1, kg, 12/28/23 10:46:00 [employer], Weight Start Date: 02/05/24 Status: Ordered Multivitamin oral tablet 1 tablet(s), Oral, daily, 30 tablet(s), Tablet(s), 0 Start Date: 05/13/19 Status: Ordered Ozempic 2 mg/3 mL (0.25 mg or 0.5 mg dose) subcutaneous solution 0.25 mg, SubQ, weekly, 3 mL, Solution, 0, 0, Route to Pharmacy Electronically, [facility]/pharmacy #[id number], [id number], 185, cm, 05/01/24 11:23:00 CDT, Height, 140.16, kg, 05/01/24 11:23:00 CDT, Weight Start Date: 05/01/24 Status: Ordered pantoprazole 40 mg oral delayed [...] Pulse Rate [60-100 bpm] 86 bp m (05/01/24 11:23 AM) Blood Pressure [89-139/60-90 mm Hg] 150/ 84mm Hg *H* (05/01/24 11:23 AM) Height 185 cm (05/01/24 11:23 AM) Weight 140.16 kg (05/01/24 11:23 AM) Social History Social History Type Response [...] and 37. Hospital Discharge Instructions Patient Education 05/01/2024 11:23:18 CR Heart Healthy Diet (CUSTOM) Heart Healthy [...] breads ??? Bran cereals ??? Oatmeal ??? [place] ??? Barley ??? [place] ??? Brown rice ??? Wild rice ??? [...] oily fish when possible, such as: ??? [place] ??? Tuna ??? Mackerel ??? Sardines ??? [place] Choose lemon or tonawanda juices and spices to prepare fish. Don???t [...] Healthy Diet [id number] Rev: 06/11 Note * Kayla Gonzalez JOURNEYMAN PRESS OPERATOR: PERFORM Event Display: Patient Documentation AMB Authored Date: [id number] * Event Display: ROI_Correspondence * Event Display: Patient Provided Clipboard Authored Date: [id number] Ambulatory Comprehensive Intake Ambulatory Comprehensive IntakeOriginating Source: PATIENTOriginating Author: LIBERTAD Randhawa Submission Date: May 11, 2019 5:03:29 PM CDT LIBERTAD LORENZO : 1955 Sex: Male MRN(s): [id number] Ambulatory Comprehensive Intake Question Response Advance Directive No; Patient DECLINED additional information Advance Directive Date Location of Advance Directive Type of Advance Directive Patient has Court Appointed Guardian No Location of Court Appointed Guardian Documentation Legal Guardian Medical Power of Clinical Account Manager Name Patient Requests Counseling Regarding Advance Directives History of Falling in Last 3 Months, Including Since Admission No Impaired Judgment/Lack of Safety Awareness No Agitation No Impaired Gait, Shuffle, Wide Base, Unsteady Walk No Ever Experience Dizziness or Vertigo No Ever Wet or Soil Yourself on Way to Bathroom No Medical Devices None Threader Operator Card Other Threader Operator Details Radiology Testing Barriers/Precautions None Menstrual Status N/A Last Menstrual Period Previous LMP Date Last Menstrual Period Description Menarche Onset Menarche Frequency Menarche Length Menstrual Comments PAP result HPV Coping Stressors Emotional Support Available Yes Do You Receive Comfort From Spiritual Practices Yes Sikhism Preference Non-oriental orthodox Spiritual Practice Comments Weight Change >10lbs No [...] voices No Marital or relationship problems No full stack developer awakenings No Chief Complaint Pain Present Yes actual or suspected pain Numeric Rating Pain Scale 6 Primary Pain Location Back - Lower Primary Pain Comments Neck and back pain caused by accident Patient Care team information Care Team Personnel Name: Brandi Munguia PHYSICAL THERAPIST CLINIC DIRECTOR Position: AMB PHYSICAL THERAPIST CLINIC DIRECTOR/PA Member Role: Nurse Practitioner Address: Address: [address] [place] [address] Name: Dale Funes M.D. Position: [facility]AR[facility] FAX ONLY - MD NOT ON STAFF Member Role: Primary Care Physician Address: Address: [address] [place] [address]- Name: Raquel Velasquez MD Position: Physician - Cardiology Member Role: School Clerk Address: Address: [address] Name: Lg Johnson MD Position: Physician - Cardiology Member Role: Specialist Physician Address: Address: [address] [place] [address] [place] Name: Nora Grimes DIRECTOR OF HEMOPHILIA Position: AMB PHYSICAL THERAPIST CLINIC DIRECTOR/PA Member Role: Nurse Practitioner Address: Address: [address] [place] [phone] Name: Sushma Hurd PHYSICAL THERAPIST CLINIC DIRECTOR Position: AMB PHYSICAL THERAPIST CLINIC DIRECTOR/PA Member Role: Nurse Practitioner Address: Address: [address] [place], [place] [address] Name: Brandi Munguia PHYSICAL THERAPIST CLINIC DIRECTOR Position: AMB PHYSICAL THERAPIST CLINIC DIRECTOR/PA Med Service: Worm Farm Laborer Spray Unit Feeder Role: Attending Physician Address: Address: [address] [place] [phone] [place] Care Team Related Persons Name: TAY LORENZO Name: SEAN LORENZO Address: home [address] [facility], [phone]
--- OUTSIDE RECORDS SUMMARY | 2024-11-03 20:13 | XMS_ITS | Continuity of Care Document ---
Author Organization [facility] Address [address] [place] [phone] Care Team Providers Care Machinery Repair Maintenance Supervisor Name Role Phone Dale Funes Primary Care Physician Encounter [facility] Financial Number [id number] Date(s): 05/27/24 - 05/27/24 [facility] [address] [id number] Encounter Diagnosis Advised about management of weight(Discharge Diagnosis) - 05/27/24 Obesity(Discharge Diagnosis) - 05/27/24 Diabetes(Discharge Diagnosis) - 05/27/24 Elevated coronary artery calcium score(Discharge Diagnosis) - 05/27/24 Former smoker(Discharge Diagnosis) - 05/27/24 HLD (hyperlipidemia)(Discharge Diagnosis) - 05/27/24 Mild HTN(Discharge Diagnosis) - 05/27/24 PVCs (premature ventricular contractions)(Discharge Diagnosis) - 05/27/24 ZULEYKA (obstructive sleep apnea)(Discharge Diagnosis) - 05/27/24 Discharge Disposition: Home or Self Care Attending Physician: Brandi Munguia NP Allergies, Adverse Reactions, Alerts No Known Medication Allergies Assessment and Plan Future Appointments Appointment Date:05/30/2024 12:00:00 PM Scheduled Provider:Katie Munoz RD, LD, CDCES Location:[facility] Appointment Type:Intensive Behavioral Therapy, Follow-up Appointment Date:06/07/2024 09:00:00 AM Scheduled Provider:Katie Munoz RD, LD, CDCES Location:[facility] Appointment Type:Intensive Behavioral Therapy, Follow-up Appointment Date:06/21/2024 09:00:00 AM Scheduled Provider:Katie Munoz RD, LD, CDCES Location:[facility] Appointment Type:Intensive Behavioral Therapy, Follow-up Appointment Date:07/08/2024 12:00:00 PM Scheduled Provider: Location:[facility] Appointment Type:Virtual Telephone Visit Appointment Date:02/25/2025 12:15:00 PM Scheduled Provider: Location:[facility] Appointment Type:[facility] EKG Appointment Date:02/25/2025 12:30:00 PM Scheduled Provider:Sushma Hurd NP Location:[facility] Appointment Type:[facility] Follow Up Appointment Date:04/28/2025 12:00:00 PM Scheduled Provider:Raquel Velasquez MD Location:[facility] Appointment Type:[facility] EP Established Patient Medications allopurinol 300 mg [...] 90 tablet(s), 3, Route to Pharmacy Electronically, [facility], [id number], 185.4, cm, 12/28/23 10:46:00 WELL DRILL OPERATOR CABLE TOOL, Height, 138.1, kg, 12/28/23 10:46:00 WELL DRILL OPERATOR CABLE TOOL, Weight Start Date: 01/10/24 Status: Ordered metFORMIN 500 mg oral tablet, extended release 1,000 mg, 2 tablet(s), bid, 0 Start Date: 05/13/19 Status: Ordered Metoprolol Succinate ER 25 mg oral tablet, extended release 1 tablet(s), Oral, daily, 90 tablet(s), 2, Route to Pharmacy Electronically, [facility], [id number], 185.4, cm, 12/28/23 10:46:00 WELL DRILL OPERATOR CABLE TOOL, Height, 138.1, kg, 12/28/23 10:46:00 WELL DRILL OPERATOR CABLE TOOL, Weight Start Date: 02/05/24 Status: Ordered Multivitamin oral tablet 1 tablet(s), Oral, daily, 30 tablet(s), Tablet(s), 0 Start Date: 05/13/19 Status: Ordered Ozempic 2 mg/3 mL (0.25 mg or 0.5 mg dose) subcutaneous solution 0.25 mg, SubQ, weekly, 3 mL, Solution, 0, 0, Route to Pharmacy Electronically, [facility]/pharmacy #[id number], [id number], 185, cm, 05/01/24 11:23:00 CDT, Height, 140.16, [...] Event Display: Patient Provided Clipboard Authored Date: [id number] Ambulatory Comprehensive Intake Ambulatory Comprehensive IntakeOriginating Source: PATIENTOriginating Author: LIBERTAD Randhawa Submission Date: May 11, 2019 5:03:29 PM CDT LIBERTAD LORENZO : 1955 Sex: Male MRN(s): [id number] Ambulatory Comprehensive Intake Question Response Advance Directive No; Patient DECLINED additional information Advance Directive Date Location of Advance Directive Type of Advance Directive Patient has Court Appointed Guardian No Location of Court Appointed Guardian Documentation Legal Guardian Medical Power of Baggage Porter Name Patient Requests Counseling Regarding Advance Directives History of Falling in Last 3 Months, Including Since Admission No Impaired Judgment/Lack of Safety Awareness No Agitation No Impaired Gait, Shuffle, Wide Base, Unsteady Walk No Ever Experience Dizziness or Vertigo No Ever Wet or Soil Yourself on Way to Bathroom No Medical Devices None Pediatric Intensive Physician Card Other Pediatric Intensive Physician Details Radiology Testing Barriers/Precautions None Menstrual Status N/A Last Menstrual Period Previous LMP Date Last Menstrual Period Description Menarche Onset Menarche Frequency Menarche Length Menstrual Comments PAP result HPV Coping Stressors Emotional Support Available Yes Do You Receive Comfort From Spiritual Practices Yes Anabaptist Preference Non-congregational Spiritual Practice Comments Weight Change >10lbs No [...] voices No Marital or relationship problems No universal grinder set up operator awakenings No Chief Complaint Pain Present Yes actual or suspected pain Numeric Rating Pain Scale 6 Primary Pain Location Back - Lower Primary Pain Comments Neck and back pain caused by accident Cardiology Outpatient Note * Brandi Munguia HIGH SCHOOL HOME ECONOMICS TEACHER: PERFORM, MODIFY, MODIFY Event Display: Cardiology Office/Clinic Note Authored Date: [id number] Patient Information Name:LIBERTAD LORENZO Address: [address] [place] [phone] Sex:Male Date of :1955 Emergency Contact:TAY LORENZO Location:[facility] Registration Date and Time:05/27/2024 12:00 CDT Primary Care Physician: Dale Funes M.D., Chief Complaint obesity History of Present Illness Mr. Lorenzo is a 68 year old gentleman with h/o HTN, HLD, DM-2, ZULEYKA- on CPAP, hypothyroidism, Rushing's esophagus/GERD. Has a h/o abnormal EKG and h/o abnormal stress test with small to moderate area of ischemia in the inferior wall. Had CCTA with non-obstructive disease in the RCA.?Endorsedpalpitations to his PCP. But no CP, SOB. Stress test was done prior to his lumbar surgery and he was cleared for the surgery. ?? At the last visit was c/o occ CP at night . Occ dyspnea. Denies syncope. 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 ?? States he was diagnosed with ZULEYKA approximately 25 years ago has refused CPAP.?? Discussed implication of untreated sleep apnea he will consider sleep study test in the future. ?? Saw dietitian 05/24/24: lost 6.6 pounds in 2 weeks. He is leaving food on his plate at a restaurantor splitting an entree with his , since he doesn't like leftovers. He stopped eating ice cream and buying junk food at home Explained the basics of DM and Ozempic since he states he has never hadDMED. He will continue with the same goals. ?? Weight today: 294 ?? out of town alot - going to [place] Notes diet hard to adhere to while he is traveling.?? Does plan to go to several more [employer] next year as well as hopefully deep sea fishing ?? He is doing very well on Ozempic 0.25 mg has had no side effect.?? He is down 15 pounds.?? Will increase next week 8???7 two 0.5 dose.?? Will also get BNP and A1c rechecked. ?? He plans to continue following with dietitian has had great results with that. ?? Did pay the one-time fee of $545 double check today further prescriptions will only be $2 at [facility]. ?? Overall doing very well will follow-up 07/08 @ 1200 bnp / a1c - quest 20 mins spent on phone with patient ? Initial weight: 309 Current weight: 294 ?? The patients returns for a follow up appointment today. Since our last appointment,?? has been doing? Has lost 15?? pounds since starting medical weight management. Is taking??ozempic Is??doing well with current AOM ?? Has?? 0/10 cravings, craving is the worst? Has?? 0/10 hunger before breakfast and /10 before lunch. Has??minimal?? moderate desire to eat or snack??after dinner. ?? Physical activities are described as . Is Is not ??combining cardio exercise with resistance training regularly as discussed Is?? ,? minutes a day,? times a week. not much just at stadi.?? 1/2??into work.?? recommend??increase exercise? Water intake per day is??5-7 glasses a day Has avoided drinking milk, soft drinks, Fruit juice and alcohol? Sleeping poorly. refused cpap in past - educated on Zuleyka ?? Doing well??food intake recommendations. Has been been avoiding eating out too often. Trying to??avoid eating ultraprocessed foods. ?? Stress level is unchanged - very mild Review of Systems ?Constitutional ?Fever?No?.?Weight Gain?No?.?Weight Loss?No?.?Fatigue?No?.?Eyes [...] further details please refer to the HPI. Vitals and Measurements No qualifying data available. Assessment/Plan ?? #weight loss management BMI 40.1 Weight initially 309 weight today?? 294 Doing very well on Ozempic 0.25 mg, increased to 0.5 mg on 8???7 Will follow-up in 1 month A1c and bmp ordered- to quest We will follow-up in 1 month 07/08 ?? #h/o abnormal stress test, non-obstructive disease on CCTA, moderate to severe CAC -repeat CCTA with diffuse non-obstructive CAD, CAC 393 - + risk factors: HTN, HLD, obesity, former smoker, DM, known non-obstructive CAD -TTE reviewed -on ASA 81 mg and?? rosuvastatin ?? #DM2 -on metformin a1c 9% 3 weeks ago - A1c pending ?? #HTN -amlodipine to 10 mg/day- counseled re: edema -continue lisinopril 40 mg DASH diet counseling ?? #Palpitations, PVC-4% PVCs and 3 episodes v-tach -underwent PVC ablation in Nov 2023 -CMR with nonspecific I/L enhancement; neg FDG PET -continue metoprolol XL 25 mg ?? #GERD -on PPI ?? #ZULEYKA 25 years ago tested not sleeping with anything on face Educated on long-term effects of untreated ZULEYKA???will continue testing in the future ?? # HLD -last FLP with LDL 53 -continue rosuvastatin at 20 mg ?? #L carotid bruit -carotid dopplers reviewed -GDMT as above -on ASA and rosuvastatin with good control Follow Up 07/08 @ 1200 Problem List/Past Medical History Ongoing Abnormal stress [...] Oral, daily ergocalciferol 50,000 units oral capsule, 16588 unit(s)= 1 capsule(s), Oral, q7days lisinopril 40 mg oral tablet, 1 tablet(s), Oral, daily metFORMIN 500 mg oral tablet, extended release, 1000 mg= 2 tablet(s), bid Metoprolol Succinate ER 25 mg oral tablet, extended release, 1 tablet(s), Oral, daily Multivitamin oral tablet, 1 tablet(s), Oral, daily Ozempic 2 mg/3 mL (0.25 mg or 0.5 mg dose) subcutaneous solution, 0.25 mg, SubQ, weekly pantoprazole 40 mg oral delayed release tablet, [...] other voice to text assistive technology and release engineer, variances may occur. Patient Care team information Care Team Personnel Name: Brandi Munguia HIGH SCHOOL HOME ECONOMICS TEACHER Position: AMB HIGH SCHOOL HOME ECONOMICS TEACHER/PA Member Role: Nurse Practitioner Address: Address: [address] [place] [address] [address] Name: Dale Funes M.D. Position: [facility]AR[facility] FAX ONLY - MD NOT ON STAFF Member Role: Primary Care Physician Address: Address: [address] [place] [address] Name: Raquel Velasquez MD Position: Physician - Cardiology Member Role: Endorsement Clerk Address: Address: [address] [place] [address] [address] [place] [address] [place] Name: Lg Johnson MD Position: Physician - Cardiology Member Role: Specialist Physician Address: Address: [address] [place] [address] Drive [address] [place] [address] [place] Name: Nora Grimes VARNISH FINISHER Position: AMB HIGH SCHOOL HOME ECONOMICS TEACHER/PA Member Role: Nurse Practitioner Address: Address: [address] [place] [address] [address] [place] [address] [place] Name: Sushma Hurd HIGH SCHOOL HOME ECONOMICS TEACHER Position: AMB HIGH SCHOOL HOME ECONOMICS TEACHER/PA Member Role: Nurse Practitioner Address: Address: [address] [place] [address] Name: Brandi Munguia HIGH SCHOOL HOME ECONOMICS TEACHER Position: AMB HIGH SCHOOL HOME ECONOMICS TEACHER/PA Med Service: Esthetics Instructor Machinery Repair Maintenance Supervisor Role: Attending Physician Address: Address: [address] [place] [address] [address] Care Team Related Persons Name: TAY LORENZO Name: SEAN LORENZO Address: home [address] [facility], [phone]
--- OUTSIDE RECORDS SUMMARY | 2024-11-03 20:14 | XMS_ITS | Encounter Summary ---
Author Organization [facility] Address [address] [place] [address] Phone Care Team Providers Care Top Installer Name Role Phone Dale Funes MD Unavailable [phone] Dale Funes MD Primary Care Provider [phone] Encounter Details Date Type Department Care Team (Late st Contact Info) Description 03/20/2023 Telephone [facility] [address] [place] [address] [place] [address] Linda Gunter RMA Social History Tobacco Use Types Packs/Day Years Used Date Smoking Tobacco: Former Smokeless Tobacco: Never Alcohol Use Standard Drinks/Week Comments Yes 0 (1 standard drink = 0.6 oz pur e alcohol) AUDIT-C Answer Date Recorded Q1: How often do you have a drink containing alc ohol? Monthly or less 03/10/2023 Q2: How many drinks containi ng alcohol do you have on a typical day when you are drinking? 1 or 2 03/10/2023 Q3: How often do you have si x or more drinks on one occasion? Never 03/10/2023 PHQ-2 Answer Date Recorded PHQ-2 Total Score 1 05/21/2020 Personal Safety Answer Date Recorded Have you ever been in or are you currently in a harmful physical or emotional relationship or is someone making you feel afraid or unsafe? Denies 03/10/2023 Sex and Gender Information Value Date Recorded Sex Assigned at Not on file Legal Sex Male 1:06 AM SOUND CUTTER Gender Identity Not on file Sexual Orientation Not on file documented as of this encounter Miscellaneous Notes * Telephone Encounter - Linda Gunter RMA - 03/20/2023 11:49 AM CDT Images from the original note were not included. Rosario Bravo MD Bell, Pamela, RMA Stomach polyp shows benign tissue that does not require follow up. Follow up with referring GI doctor. Spoke with the patient regarding biopsy results, no follow up required and following up with the referring doctor. JARET Vargas documented in this encounter Plan of Treatment Not on file documented as of this encounter Visit Diagnoses Not on filedocumented in this encounter Care Teams Top Installer Relationship Specialty Start Date End Date Dale Funes MD [address] [address] PCP - General Family Medicine 03/07/23 Dale Funes MD [address] [address] 06/25/19 documented as of this encounter
--- OUTSIDE RECORDS SUMMARY | 2024-11-03 20:14 | XMS_ITS | Referral Summary ---
Author Organization [facility] Address [address] [place] [address] Care Team Providers Care Fuel Cell Systems Engineer Name Role Phone Dale Funes MD Primary Care Provider [phone] Source Comments [facility],non-owned Affiliates and Associated Physician Practices is amultiple site organization consisting of ambulatory clinics and hospital sitesin [place], [place], [place] and [place]. This disclosure is being madepursuant to the Care Everywhere program and may not contain all information available regarding this patient. Last updated 18.[facility] Social History Tobacco Use Types Packs/Day Years Used Date Smoking Tobacco: Never Assessed Sex and Gender Information Value Date Recorded Sex Assigned at Not on file Gender Identity Not on file Sexual Orientation Not on file Last Filed Vital Signs Vital Sign Reading Time Taken Comments Blood Pressure 113/72 12/26/2017 12:23 PM MANAGER OF REVENUE Pulse 75 12/26/2017 12:23 PM MANAGER OF REVENUE Temperature 36.3 ??C (97.4 ??F) 12/26/2017 8:19 AM CS T Respiratory Rate 13 12/26/2017 12:23 PM MANAGER OF REVENUE Oxygen Saturation 94% 12/26/2017 12:23 PM MANAGER OF REVENUE Inhaled Oxygen Concentration - - Weight 127.9 kg (282 lb) 12/26/2017 8:15 AM MANAGER OF REVENUE Height 185.4 cm (6' 1 ) 12/26/2017 8:15 AM MANAGER OF REVENUE Body Mass Index 37.21 12/26/2017 8:15 AM MANAGER OF REVENUE Plan of Treatment Not on file Procedures Procedure Name Priority Date/Time Associated Diagnosis Comments HEPATITIS C AB W/RFLX TO HCV RNA QN PCR Routine 11/13/2017 1:39 PM MANAGER OF REVENUE from Last 3 Months or Most Recently Relevant to Health Maintenance Results * HEPATITIS C AB W/RFLX TO HCV RNA QN PCR (11/13/2017 1:39 PM MANAGER OF REVENUE) Hepatitis C Antibody 0.2 0.0 - 0.9 s/co ratio [facility] ([facility] 11/13/2017 1:39 PM MANAGER OF REVENUE 11/13/2017 Narrative [facility] ([facility]) - 11/14/2017 7:11 AM MANAGER OF REVENUE Performed at: ?? - [facility] [address] [place] [address] ??[id number] Box Finisher: Wayne Kelly PhD, Phone: ??[phone] Christos Kt Blum MD LAB - CHEMISTRY ORDERABLES [facility] ([facility]) [address] [place] [address], [facility] from Last 3 Months or Most Recently Relevant to Health Maintenance Care Teams Fuel Cell Systems Engineer Relationship Specialty Start Date End Date Dale Funes MD PCP - General 03/14/18
--- OUTSIDE RECORDS SUMMARY | 2024-11-03 20:14 | XMS_ITS | Clinical Summary ---
Author Organization [facility] Address [address] [address] Care Team Providers Care Relays Draftsperson Name Role Phone Dale Funes MD Unavailable [phone] Dale Funes MD Primary Care Provider [phone] Allergies No known active allergies Medications allopurinol (ZYLOPRIM) 300 mg tablet Take 1 tablet (300 mg total) by mouth daily 3 06/17/20 19 Active aspirin 81 mg enteric coated tablet Take 1 tablet (81 mg total) by mouth daily Active cyclobenzaprine (FLEXERIL) 10 mg tablet TAKE 1 TABLET BY MOUTH AT BEDTIME NEEDED FOR SPASM 0 07/12/20 19 Active levothyroxine (SYNTHROID) 150 mcg tablet TAKE 1 TABLET BY ORAL ROUTE EVERY MORNING FOR HYPOTHYROIDISM 3 06/14/20 19 Active meloxicam (MOBIC) 7.5 mg tablet TAKE 1 TABLET BY MOUTH TWICE A DAY NEEDED FOR PAIN 0 07/11/20 19 Active metFORMIN XR (GLUCOPHAGE XR) 500 mg 24 hr tablet TAKE TWO TABLETS BY MOUTH TWO TIMES A DAY WITH MEALS 06/11/[address] (PROTONIX) 40 mg EC tablet Take 1 tablet (40 mg total) by mouth daily 3 06/11/20 19 Active simvastatin (ZOCOR) 20 mg tablet Take 1 tablet (20 mg total) by mouth every evening 3 06/11/20 19 Active calcium carbonate (KPFT-QUT-749) 1,250 MG (500 mg of elemental calcium) tablet Take by mouth daily Active senna-docusate (PERICOLACE) 8.6-50 mg Take by mouth daily Active multivitamin tablet Take by mouth Active ergocalciferol (VITAMIN D) 50,000 unit capsule Take 50,000 Units by mouth once a week Active diphenhydrAMINE (BENADRYL) 25 mg capsule Take 25 mg by mouth daily Active vitamin E (vitamin E) 400 unit capsule 1 capsule (400 Units total) daily Active methylPREDNISolone (Medrol, Heriberto,) 4 mg DosepackIndication s:Acute nasopharyngitis follow package directions 1 packet 10/14/20 21 Active lisinopriL (PRINIVIL,ZESTRIL) 40 mg tablet Take 1 tablet (40 mg total) by mouth daily 01/24/20 23 Active cholecalciferol (VITAMIN D-3) 50,000 unit capsule 34807 UNIT ORALLY WEEKLY 12/18/[address] (CYMBALTA) 30 mg capsule Take by mouth daily 02/20/20 23 Active traMADoL (ULTRAM) 50 mg tablet TAKE 1 TABLET BY MOUTH EVERY 6 HOURS NEEDED FOR PAIN TAKE WITH ACETAMINOPHEN 325MG 01/26/20 23 Active Active Problems Problem Noted Date Diagnosed Date S/P cervical spinal fusion 06/25/2020 Assessment & Plan (06/25/2020 3:51 PM CDT): Assessment: Cervical Spine Healing total disc replacement C3-4, C6-7. Healed fusion C4-6. Plan: the patient should accept his condition. No further treatment would be indicated. He has at maximum medical improvement with regard to the cervical spine. The patient will likely require some permanent restrictions of no lifting greater than 20 pounds, no overhead work. Bulging of cervical intervertebral disc 08/08/20 19 Assessment & Plan (08/08/2019 1:18 PM CDT): Assessment: Status post cervical disc replacement July 10, [address] Ernandez Disc bulging C3-4. Disc osteophyte complex C6-7. Cervical spondylosis Plan: Adhere to post op restrictions. Physical therapy for the cervical spine could be appropriate 3 months post op or sooner depending on healing status. I would anticipate MMI 6 months post op from surgery after a cervical total disc replacement. Bulge of lumbar disc without myelopathy 08/08/20 19 Assessment & Plan (06/25/2020 3:51 PM CDT): Assessment: Diffuse bulging L4-5, L5-S1 Lumbar spondylosis Plan: At our last evaluation, we felt the patient would require a posterior lumbar laminectomy and fusion L4-5 and L5-S1. The patient should continue to work on weight loss and obtain a BMI of under 35, he is currently at 38. I still feel that he requires a posterior lumbar laminectomy and fusion from L4- S1. He will need to continue with weight loss but still requires further treatment. Assessment & Plan (08/08/2019 1:15 PM CDT): Assessment Diffuse disc bulging L4-5 and L5-S1. Lumbar spondylosis. Plan Additional medical treatment is necessary. I feel the patient may require a posterior lumbar laminectomy and fusion at the level of L4-5 and L5-S1. The conservative treatment with regard to his lumbar spine is no longer providing him symptomatic relief. Disease of thyroid gland 07/23/2014 Mass of neck 07/11/2014 Lymphadenopathy 06/26/2014 Surgical History Surgery Date Site/Laterality Comments NECK SURGERY Neck Surgery - (Added by TW Conv) KNEE SURGERY Bilateral Knee Surgery - (Added by TW Conv) [place] RPR UMBILICAL HERNIA < 5 YRS REDUCIBLE Umbilical Hernia Repair - (Added by TW Conv) [place] ARTHRD ANT INTERBODY MIN DSC CRV BELOW C2 Cervical Vertebral Fusion - (Added by TW Conv) SHOULDER SURGERY Bilateral CHOLECYSTECTOMY THYROIDECTOMY BACK SURGERY Medical History Medical History Date Comments Personal history of other di seases of the circulatory system History of hypertension - (A dded by TW Conv) Personal history of other en docrine, nutritional and metabolic disease History of diabetes mellitus - (Added by TW Conv) Personal history of other di seases of the respiratory system History of asthma - (Added b y TW Conv) Personal history of other di seases of the digestive system History of gastroesophageal reflux (GERD) - (Added by TW Conv) Injury of neck Neck injury - (A dded by TW Conv) Personal history of urinary calculi History of renal calculi - (Added by TW Conv) Diabetes mellitus (HCC) Thyroid disease Hypercholesteremia Hypertension Asthma Kidney stone Arthritis Gout GERD (gastroesophageal reflux disease) Type 2 diabetes mellitus (HCC) Hypothyroidism Family History Medical History Relation Name Comments Emphysema Father Family history of emphysema - (Added by TW Conv) Heart disease Mother Family history of cardiac disorder - (Added by TW Conv) Heart disease Other 1 Family history of cardiac disorder - (Added by TW Conv) Hypertension Other 2 Family history of hypertension - (Added by TW Conv) Relation Name Status Comments Father Mother Other 1 Other 2 Social History Tobacco Use Types Packs/Day Years Used Date Smoking Tobacco: Former Smokeless Tobacco: Never Tobacco Cessation:Counseling Given: Not Answered Alcohol Use Standard Drinks/Week Comments Yes 0 [...] 1 05/21/2020 Personal Safety Answer Date Recorded Getting School Help Needed Not on file 03/16 Sex and Gender Information Value Date Recorded Sex Assigned at Not on file 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 Gender Identity Not on file Sexual Orientation Not on file Obstetrics History Last Filed Vital Signs Vital Sign Reading Time Taken Comments Blood Pressure 105/85 03/10/2023 9:05 AM CDT Pulse 72 03/10/2023 9:15 AM CDT Temperature 36.7 ??C (98.1 ??F) 03/10/2023 8:45 AM CD T Respiratory Rate 18 03/10/2023 9:15 AM CDT Oxygen Saturation 95% 03/10/2023 9:15 AM CDT Inhaled Oxygen Concentration - - Weight 131.5 kg (290 lb) 03/10/2023 7:29 AM CDT Height 185.4 cm (6' 1 ) 03/10/2023 7:29 AM CDT Body Mass Index 38.26 03/10/2023 7:29 AM CDT Plan of Treatment Health Maintenance Due Date Last Done Comments Colon Cancer Screening-Colonoscopy 1955 Fall Risk Assessment 1955 Hepatitis C Screening 1955 DTaP/Tdap/Td Vaccine (1 - Tdap) 1965 Zoster Vaccine (1 of 2) 2004 Abdominal Aortic Aneurysm (A AA) Screen 2019 Pneumococcal vaccine 65+ (1 of 1 - PCV) 2019 Well Visit 65+ 2019 Depression Screening 05/21/2021 05/21/2020, 05/21/2020, 07/31/2019, Additional history exists Influenza Vaccine (#1) 2024 9, 08/30/2018, 08/11/2016, Additional history exists Medical Devices Implanted Type Area Milking Machine Operator Device Identifier Shelf Expiration Date Model / Serial / Lot Conmed Kathleen Conmed 11mm Duraclip [id number] - [id number] Implanted:Qty: 1 on 03/10/2023 by Rosario Bravo MD at [facility] Conmed Kathleen 11/12/2024 [id number] / / [id number] Conmed Kathleen Conmed 11mm Duraclip [id number] - [id number] Implanted:Qty: 1 on 03/10/2023 by Rosario Bravo MD at [facility] Conmed Kathleen 11/12/2024 [id number] / / [id number] Insurance MEDICARE [employer] MEDICARE [employer] MEDICARE [employer] COMPENSATION GENERIC Advance Directives For more information, please contact: [phone] * Full Code (Latest Code Status on File) Date Activated Date Inactivated Comments 03/10/2023 7:16 AM 03/10/2023 1:30 PM Care Teams Relays Draftsperson Relationship Specialty Start Date End Date Dale Funes MD [address] [facility] [address] PCP - General Family Medicine 03/07/23 Dale Funes MD [address] [facility] [address] 06/25/19
--- OUTSIDE RECORDS SUMMARY | 2024-11-03 20:14 | XMS_ITS | Encounter Summary ---
Author Organization [facility] Healthcare Address [address] [place] [address] Care Team Providers Care Crank Hand Name Role Phone No, Physician Primary Care Provider [phone] Dale Funes MD Unavailable [phone] Reason for Visit * Reason Onset Date Comments GI Preprocedure 03/03/2023 Encounter Details Date Type Department Care Team (Late st Contact Info) Description 03/03/2023 Telephone [facility] Specialty Services [address] [place] [address] Mary Beth Zamora RN GI Preprocedure Social History Tobacco Use Types Packs/Day Years Used Date Smoking Tobacco: Former Smokeless Tobacco: Never Alcohol Use Standard Drinks/Week Comments Yes 0 (1 standard drink = 0.6 oz pur e alcohol) PHQ-2 Answer Date Recorded PHQ-2 Total Score 1 05/21/2020 Sex and Gender Information Value Date Recorded Sex Assigned at Not on file 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 PROCEDURE Type: EUS Indication: Other diseases of stomach and duodenum (K31.89) Referring Physician: LOUISE MORENO Date Referred: 03/03/23 CLINICAL ASSESSMENT [] Clinical assessment obtained via phone call with patient 03/03/23 []COVID Screening questions [] Covid vaccination yes []BMI>45, Weight >350 lbs (if yes, note restrictions below) BMI Readings from Last 1 Encounters: 10/14/21 39.79 kg/m?? Wt Readings from Last 1 Encounters: 10/14/21 (!) 136.8 kg (301 lb 9.6 oz) [] Patient had GI procedure/CPAP clinic/GI clinic <30 days (if Yes, no medical screening questions needed unless new clinical issues in last 30 days) Medical screening questions: BMI/Weight: NA CARDIOVASCULAR: NoneHTN,HLD RESPIRATORY/LUNG: None RENAL/LIVER/GI: NoneKidney stones, GERD BLEEDING/CLOTTING: None NEUROLOGICAL: None ENDOCRINE: Diabetes- No BG above 250 or AIC >10 for [facility]. No BG =>400 for [facility]. Bg>300 at [facility] may get rescheduledDM-Metformin PRIOR PROCEDURE ISSUES: None SALVAGER/: NA IMPLANTS.: None Notes: DIABETIC MEDS Y/N: Yes [x]Yes- Discuss diabetes medication management with prescribing physician DIALYSIS Y/N: No/NA []HD- Schedule on non-HD day, see protocol []PD- Drain PD fluid AM of procedure, if colonoscopy order AB ppx, see protocol PACEMAKER/ICD Y/N: No/NA Device info: Last documented device check: Any shocks since last cards visit (if yes must see cardiology for procedure clearance): BLOOD THINNERS/ANTICOAG/ANTIPLATELET (BESIDES ASA) Medication: NONE Physician contacted for hold order/date sent: Hold order Method sent: Date hold received: Hold instructions: CONTINUE ASPIRIN INFORMATION REQUESTED []Imaging: []Medical Progress Note/H&P []Medication list []Other: PATIENT OPTIMIZATION []Physician reviewing escalation: []CPAP: Date scheduled: Outcome : [] Location limitations: Scheduling Scheduling location limitations: Ager Operator needed [] NA Language: POA [] NA Name: SPECIAL PROCEDURE INSTRUCTIONS Scheduling Notes Procedure information Date of procedure: 03/10/23 Time of procedure: 800 Arrival time:700 Location:[facility] [place] Proceduralist:Lawrence Miranda Method of instructions: Dalton email [email or web address] 03/03/23 [x]Confirmation of ride/senior capital markets specialist [x]Post anesthesia restrictions given [x]NPO Instructions: [x]Diet Instructions: [x]Take non-blood thinner prescription meds that morning [x]Bring med list, photo ID, insurance card, no valuables [x]Bring COVID vaccination card (if vaccinated) Bowel Prep Prep prescribed: DANIELA Method of Bowel Prep (RX): DANIELA [facility] [address] [address] Fax: Date: March 02, 2023 Ambulatory referral to Gastroenterology Patient: Teo Martinez [address] [facility] [address] : 1955 SSN: [id number] Sex: M Insurance: Member ID: Referring Provider Information: LOUISE MORENO Fax: Referral Information: # Visits: 1 Referral Type: Consultation [3] Urgency: Routine Referral Reason: Specialty Services Required Start Date: March 02, 2023 End Date: To be determined by Insurer Diagnosis: Other diseases of stomach and duodenum (K31.89) Refer to Location: [facility] (All Locations) Refer to Provider: ROSARIO BRAVO Phone #: [phone] Fax #: [phone] Address: [address] [place] [address] GASTROENTEROLOGY, [place] [address] Please select the performing region: [facility] (All Locations) [167] # of visits: 1 Transcribed by: Lashae Steward EUS Received: Today [facility] Procedure Referrals Pool Rosario Bravo MD McGee, Kaylha EUS with ia for antral nodule. Not urgent, no covid needed. Previous Messages ----- Message ----- From: [facility] Sent: 03/03/2023 10:45 AM CDT To: Rosario Bravo MD Subject: FW: diego Please advise on schedulin. Office visit versus direct procedure (specify procedure) 2. Urgency/timeframe to schedule 3. Dx 4. Covid Test? ----- Message ----- From: Lashae Steward Sent: 03/02/2023 5:27 PM CDT To: [facility] 1 Pool Subject: diego Records scanned under media tab, 'outside secondary info'. Please advise on scheduling. This referral is for Dr Bravo. Thank you documented in this encounter Plan of Treatment Not on file documented as of this encounter Visit Diagnoses Not on filedocumented in this encounter Care Teams Crank Hand Relationship Specialty Start Date End Date No, Physician PCP - General 06/25/19 03/06/23 Dale Funes MD [address] [address] 06/25/19 documented as of this encounter
--- OUTSIDE RECORDS SUMMARY | 2024-11-03 20:14 | XMS_ITS | Encounter Summary ---
Author Organization [facility] Address [address] [address] Care Team Providers Care Outdoor Adventure Guides Name Role Phone No, Physician Primary Care Provider [phone] Dale Funes MD Unavailable [phone] Reason for Visit * Reason Onset Date Comments Test Results 10/15/2021 Encounter Details Date Type Department Care Team (Late st Contact Info) Description 10/15/2021 Telephone [facility] [place] [address] [place] [address] Silvia Segovia I., RN Test Results Social History Tobacco Use Types Packs/Day Years Used Date Smoking Tobacco: Former Smokeless Tobacco: Never Alcohol Use Standard Drinks/Week Comments Yes 0 (1 standard drink = 0.6 oz pur e alcohol) PHQ-2 Answer Date Recorded PHQ-2 Total Score 1 05/21/2020 Sex and Gender Information Value Date Recorded Sex Assigned at Not on file Legal Sex Male 1:06 AM 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 Pt verbalized understanding of all the above. FIER * Telephone Encounter - Silvia Segovia MA - 10/15/2021 11:31 AM VERIFIER ----- Message from Sarahy Patel NP sent at 10/15/2021 11:08 AM VERIFIER ----- [facility] CC Pool, [facility] CC Pool, please contact patient regarding negative covid results. Please instruct : If you are NEGATIVE, AND: 1. NO symptoms and NO known/possible exposure: NO need to isolate. 2. NO symptoms and YES known/possible exposure: quarantine for 14 days after last potential exposure. A negative test of a specific day cannot be used to release from quarantine since the patience could become positive during the 14- day period. 3. YES symptoms and NO known/possible exposure: quarantine until without fever for 24 hours AND symptoms improve. 4. YES symptoms and YES known/possible exposure: you must quarantine for 14 days from last known exposure date. A negative test of a specific day cannot be used to release from quarantine since the patient could become positive during the 14 day period. 5. YES symptoms and YES known/possible exposure and HAVE BEEN VACCINATED: you ONLY QUARANTINE untilyou are fever free AND symptoms improve. 6. NO symptoms and YES known/possible exposure and HAVE BEEN VACCINATED: NO RECOMMENDATION FOR QUARANTINE. e contact patient regarding negative covid results. Please instruct to follow the 10 day and24 hour rule. FIER documented in this encounter Plan of Treatment Not on file documented as of this encounter Visit Diagnoses Not on filedocumented in this encounter Care Teams Outdoor Adventure Guides Relationship Specialty Start Date End Date No, Physician PCP - General 06/25/19 03/06/23 Dale Funes MD [address] [address] 06/25/19 documented as of this encounter
--- OUTSIDE RECORDS SUMMARY | 2024-11-03 20:14 | XMS_ITS | Continuity of Care Document ---
Author Organization [facility] Address [address] [id number] Care Team Providers Care Program Services Assistant Name Role Phone Lesliewesley Dale L Primary Care Physician Encounter [facility] Financial Number [id number] Date(s): 11/22/23 - 11/22/23 [facility] [address] [id number] Encounter Diagnosis HTN (hypertension)(Discharge Diagnosis) - 11/22/23 Discharge Disposition: Home or Self Care Attending Physician: Greg Espinal MD Referring Physician: Greg Espinal MD Allergies, Adverse Reactions, Alerts No Known Medication Allergies Assessment and Plan Future Appointments Appointment Date:04/22/2024 12:00:00 PM Scheduled Provider:Raquel Velasquez MD Location:[facility] Appointment Type:[facility] Established Patient Medications Aleve 220 mg oral capsule 220 mg, 1 capsule(s), daily, 0 Start Date: 05/13/19 Status: Ordered allopurinol 300 mg oral tablet 300 mg, 1 tablet(s), Oral, daily, 30 tablet(s), Tablet(s), 0 Start Date: 05/13/19 Status: Ordered amLODIPine 10 mg oral tablet 10 mg, 1 tablet(s), Oral, daily, 90 tablet(s), Tablet(s), 3, 3, Route to Pharmacy Electronically, [facility]/pharmacy #[id number], [id number], 185.4, cm, 10/16/23 12:14:00 MANAGER SOLAR, Height, 140.16, kg, 10/16/23 12:14:00 MANAGER SOLAR, Weight Start Date: 10/16/23 Status: Ordered aspirin [...] Tablet(s), 0, 0, Route to Pharmacy Electronically, [facility]/pharmacy #[id number], [id number], 185.4, cm, 08/21/23 11:21:00 CDT, Height, 137.2, [...] CR, 6, 6, Route to Pharmacy Electronically, [facility]/pharmacy #[id number], [id number], 185.4, cm, 08/21/23 11:21:00 CDT, Height, 137.2, [...] Tablet(s), 3, 3, Route to Pharmacy Electronically, [facility]/pharmacy #[id number], [id number], 185.4, cm, 08/21/23 11:21:00 CDT, Height, 137.2, [...] Event Display: Patient Provided Clipboard Authored Date: [id number] Ambulatory Comprehensive Intake Ambulatory Comprehensive IntakeOriginating Source: PATIENTOriginating Author: LIBERTAD Randhawa Submission Date: May 11, 2019 5:03:29 PM CDT LIBERTAD LORENZO : 1955 Sex: Male MRN(s): [id number] Ambulatory Comprehensive Intake Question Response Advance Directive No; Patient DECLINED additional information Advance Directive Date Location of Advance Directive Type of Advance Directive Patient has Court Appointed Guardian No Location of Court Appointed Guardian Documentation Legal Guardian Medical Power of Sas Clinical Programmer Name Patient Requests Counseling Regarding Advance Directives History of Falling in Last 3 Months, Including Since Admission No Impaired Judgment/Lack of Safety Awareness No Agitation No Impaired Gait, Shuffle, Wide Base, Unsteady Walk No Ever Experience Dizziness or Vertigo No Ever Wet or Soil Yourself on Way to Bathroom No Medical Devices None Clinical Sales Consultant Card Other Clinical Sales Consultant Details Radiology Testing Barriers/Precautions None Menstrual Status N/A Last Menstrual Period Previous LMP Date Last Menstrual Period Description Menarche Onset Menarche Frequency Menarche Length Menstrual Comments PAP result HPV Coping Stressors Emotional Support Available Yes Do You Receive Comfort From Spiritual Practices Yes Evangelical Preference Non-nondenominational Spiritual Practice Comments Weight Change >10lbs No [...] voices No Marital or relationship problems No experimental welder awakenings No Chief Complaint Pain Present Yes actual or suspected pain Numeric Rating Pain Scale 6 Primary Pain Location Back - Lower Primary Pain Comments Neck and back pain caused by accident Patient Care team information Care Team Personnel Name: Dale Funes M.D. Position: ZZ FAX ONLY - MD NOT ON STAFF Member Role: Primary Care Physician Address: Address: [address] [place] [address]- Name: Raquel Velasquez MD Position: Physician - Cardiology Member Role: Envelope Folder Address: Address: [address] [place] [address] Building [address] [place] [address] Name: Lg Johnson MD Position: Physician - Cardiology Member Role: Specialist Physician Address: Address: [address] [place] [address] [address] Care Team Related Persons Name: TAY LORENZO Name: SEAN LORENZO Address: home [address] [facility], [id number]
--- OUTSIDE RECORDS SUMMARY | 2024-11-03 20:14 | XMS_ITS | Encounter Summary ---
Author Organization [facility] Address [address] [facility] [place] [address] Care Team Providers Care General Education Instructor Name Role Phone Unavailable Primary Care Provider Unavailabl e Encounter Details Date Type Department Care Team (Latest Contact Info) Description 11/02/2017 Hospital Outpatient Visit [facility] Gastroenterology and Hepatology [address] [place] [address] Christos Blum MD [address] [place] [address] Discharge Disposition: Home or Self Care Social History Tobacco Use Types Packs/Day Years Used Date Smoking Tobacco: Never Assessed Sex and Gender Information Value Date Recorded Sex Assigned at Not on file Gender Identity Not on file Sexual Orientation Not on file documented as of this encounter Plan of Treatment Not on file documented as of this encounter Visit Diagnoses Not on filedocumented in this encounter
--- OUTSIDE RECORDS SUMMARY | 2024-11-03 20:14 | XMS_ITS | Referral Summary ---
Author Organization [facility] [address] [facility] Address [address] [place] [address] Care Team Providers Care Fur Cleaner Name Role Phone Dale Funes MD Unavailable [phone] Dale Funes MD Primary Care Provider [phone] Allergies No known active allergies Medications allopurinol [...] evening 3 06/11/20 19 Active calcium carbonate (IAEB-IHT-561) 1,250 MG (500 mg of elemental calcium) [...] Active cholecalciferol (VITAMIN D-3) 50,000 unit capsule 67193 UNIT ORALLY WEEKLY 12/18/19 23 Active DULoxetine [...] 07/23/2014 Mass of neck 07/11/2014 Lymphadenopathy 06/26/2014 Social History Tobacco Use Types Packs/Day Years [...] on file Legal Sex Male 1:06 AM 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 Conmed Kathleen 11/12/2024 [id number] / / [id number] Conmed Kathleen Conmed 11mm Duraclip [id number] - [id number] Implanted:Qty: 1 on 03/10/2023 by Rosario Bravo MD at [facility] Conmed Kathleen 11/12/2024 [id number] / / [id number] Insurance MEDICARE [facility] MEDICARE [facility] MEDICARE [employer] COMPENSATION GENERIC Advance Directives For more information, please contact: [phone] * Full Code (Latest Code Status on File) Date Activated Date Inactivated Comments 03/10/2023 7:16 AM 03/10/2023 1:30 PM Care Teams Fur Cleaner Relationship Specialty Start Date End Date aDle Funes MD [address] [address] PCP - General Family Medicine 03/07/23 Dale Funes MD [address] [address] 06/25/19
--- OUTSIDE RECORDS SUMMARY | 2024-11-03 20:14 | XMS_ITS | Continuity of Care Document ---
Author Organization [facility] Address [address] [id number] Care Team Providers Care Pony Edger Name Role Phone Dale Funes Primary Care Physician Encounter [facility] Financial Number [id number] Date(s): 02/23/24 - 02/23/24 [facility] [address] [id number] Encounter Diagnosis Abnormal stress test(Discharge Diagnosis) - 02/23/24 Discharge Disposition: Home or Self Care Attending Physician: Greg Espinal MD Referring Physician: Greg Espinal MD Allergies, Adverse Reactions, Alerts No Known Medication Allergies Assessment and Plan Future Appointments Appointment Date:04/22/2024 12:00:00 PM Scheduled Provider:Raquel Velasquez MD Location:[facility] Appointment Type:[facility] EP Established Patient Appointment Date:02/25/2025 12:15:00 PM Scheduled Provider: Location:[facility] Appointment Type:[facility] EKG Appointment Date:02/25/2025 12:30:00 PM Scheduled Provider:Sushma Hurd NP Location:[facility] Appointment Type:[facility] Follow Up Medications Aleve 220 mg oral capsule 220 mg, 1 capsule(s), daily, 0 Start Date: 05/13/19 Status: Ordered allopurinol 300 mg oral tablet 300 mg, 1 tablet(s), Oral, daily, 30 tablet(s), Tablet(s), 0 Start Date: 05/13/19 Status: Ordered amLODIPine 5 mg oral tablet 5 mg, 1 tablet(s), Oral, daily, 100 tablet(s), Tablet(s), 0 Start Date: 12/28/23 Status: Ordered aspirin 81 mg oral enteric [...] 90 tablet(s), 3, Route to Pharmacy Electronically, [id number], [id number], 185.4, cm, 12/28/23 10:46:00 FEDERAL JUDGE, Height, 138.1, kg, 12/28/23 10:46:00 FEDERAL JUDGE, Weight Start Date: 01/10/24 Status: Ordered metFORMIN 500 mg oral tablet, extended release 1,000 mg, 2 tablet(s), bid, 0 Start Date: 05/13/19 Status: Ordered Metoprolol Succinate ER 25 mg oral tablet, extended release 1 tablet(s), Oral, daily, 90 tablet(s), 2, Route to Pharmacy Electronically, [id number], [id number], 185.4, cm, 12/28/23 10:46:00 FEDERAL JUDGE, Height, 138.1, kg, 12/28/23 10:46:00 FEDERAL JUDGE, Weight Start Date: 02/05/24 Status: Ordered Multivitamin [...] Event Display: Patient Provided Clipboard Authored Date: [id number] Ambulatory Comprehensive Intake Ambulatory Comprehensive IntakeOriginating Source: PATIENTOriginating Author: LIBERTAD Randhawa Submission Date: May 11, 2019 5:03:29 PM CDLIBERTAD RALPH : 1955 Sex: Male MRN(s): [id number] Ambulatory Comprehensive Intake Question Response Advance Directive No; Patient DECLINED additional information Advance Directive Date Location of Advance Directive Type of Advance Directive Patient has Court Appointed Guardian No Location of Court Appointed Guardian Documentation Legal Guardian Medical Power of Pct Name Patient Requests Counseling Regarding Advance Directives History of Falling in Last 3 Months, Including Since Admission No Impaired Judgment/Lack of Safety Awareness No Agitation No Impaired Gait, Shuffle, Wide Base, Unsteady Walk No Ever Experience Dizziness or Vertigo No Ever Wet or Soil Yourself on Way to Bathroom No Medical Devices None Nurse Discharge Card Other Nurse Discharge Details Radiology Testing Barriers/Precautions None Menstrual Status N/A Last Menstrual Period Previous LMP Date Last Menstrual Period Description Menarche Onset Menarche Frequency Menarche Length Menstrual Comments PAP result HPV Coping Stressors Emotional Support Available Yes Do You Receive Comfort From Spiritual Practices Yes Samaritan Preference Non-adventism Spiritual Practice Comments Weight Change >10lbs No [...] voices No Marital or relationship problems No physician recruiter awakenings No Chief Complaint Pain Present Yes actual or suspected pain Numeric Rating Pain Scale 6 Primary Pain Location Back - Lower Primary Pain Comments Neck and back pain caused by accident Patient Care team information Care Team Personnel Name: Dale Funes M.D. Position: ZZ FAX ONLY - MD NOT ON STAFF Member Role: Primary Care Physician Address: Address: [address] [place] [address]- Name: Raquel Velasquez MD Position: Physician - Cardiology Member Role: Inspector Experimental Assembly Address: Address: [address] [place] [address] Building [address] [place] [address] Name: Lg Johnson MD Position: Physician - Cardiology Member Role: Specialist Physician Address: Address: [address] [place] [address] [place] [address] Name: Nora Grimes MACHINING SUPERVISOR Position: AMB CHIEF RESOURCE OFFICER/PA Member Role: Nurse Practitioner Address: Address: [address] [place] [address] [place] [address] Name: Sushma Hurd CHIEF RESOURCE OFFICER Position: AMB CHIEF RESOURCE OFFICER/PA Member Role: Nurse Practitioner Address: Address: [address] Care Team Related Persons Name: TAY LORENZO Name: SEAN LORENZO Address: home [address] [facility], [id number]
--- OUTSIDE RECORDS SUMMARY | 2024-11-03 20:14 | XMS_ITS | Clinical Summary ---
Author Organization [facility] Address [address] [facility] [place] [address] Care Team Providers Care Online Facilitator Name Role Phone Dale Funes MD Primary Care Provider [phone] Source Comments [facility],non-owned Affiliates and Associated Physician Practices is amultiple site organization consisting of ambulatory clinics and hospital sitesin [place], [place], [place] and [place]. This disclosure is being madepursuant to the Care Everywhere program and may not contain all information available regarding this patient. Last updated 18.[facility] Social History Tobacco Use Types Packs/Day Years Used Date Smoking Tobacco: Never Assessed Sex and Gender Information Value Date Recorded Sex Assigned at Not on file Gender Identity Not on file Sexual Orientation Not on file Last Filed Vital Signs Vital Sign Reading Time Taken Comments Blood Pressure 113/72 12/26/2017 12:23 PM DIGITAL CONTENT SPECIALIST Pulse 75 12/26/2017 12:23 PM DIGITAL CONTENT SPECIALIST Temperature 36.3 ??C (97.4 ??F) 12/26/2017 8:19 AM CS T Respiratory Rate 13 12/26/2017 12:23 PM DIGITAL CONTENT SPECIALIST Oxygen Saturation 94% 12/26/2017 12:23 PM DIGITAL CONTENT SPECIALIST Inhaled Oxygen Concentration - - Weight 127.9 kg (282 lb) 12/26/2017 8:15 AM DIGITAL CONTENT SPECIALIST Height 185.4 cm (6' 1 ) 12/26/2017 8:15 AM DIGITAL CONTENT SPECIALIST Body Mass Index 37.21 12/26/2017 8:15 AM DIGITAL CONTENT SPECIALIST Plan of Treatment Health Maintenance Due Date Last Done Comments CLAUDIA (AGES 45-75) - COL ON CA SCREENING 1955 COLON MONITORING 1955 COLONOSCOPY - COLON CA SCREENING 1955 CT COLONOGRAPHY - COLON CA SCREENING 1955 Colorectal Cancer Screening 1955 FIT - COLON CA SCREENING 1955 FLEX SIG - COLON CA SCREENING 1955 LIPID TESTING 1955 MEDICARE AWV ? 12 MONTHS 1955 DTAP/TDAP/TD VACCINES (1 - Tdap) 1973 ZOSTER VACCINE (1 of 2) 2004 PNEUMOCOCCAL VACCINE 65+ (1 of 1 - PCV) 2019 DEPRESSION SCREENING 10/30/2023 COVID-19 VACCINE (1 - 2023-2 5 season) 2024 INFLUENZA VACCINE (#1) 2024 Respiratory Syncytial Virus (RSV) Vaccine Pt: or over 60 yrs (1 - 1-dose 75+ series) 2029 HEPATITIS C SCREENING Completed 11/13/2017 HEPATITIS B VACCINE Aged Out No longe r eligible based on patient's age to complete this topic HIB VACCINE Aged Out No longer eligi ble based on patient's age to complete this topic HPV VACCINE Aged Out No longer eligi ble based on patient's age to complete this topic MENINGOCOCCAL VACCINE Aged Out No gareth pawel eligible based on patient's age to complete this topic Procedures Procedure Name Priority Date/Time Associated Diagnosis Comments HEPATITIS C AB W/RFLX TO HCV RNA QN PCR Routine 11/13/2017 1:39 PM DIGITAL CONTENT SPECIALIST from Last 3 Months or Most Recently Relevant to Health Maintenance Results * HEPATITIS C AB W/RFLX TO HCV RNA QN PCR (11/13/2017 1:39 PM DIGITAL CONTENT SPECIALIST) Hepatitis C Antibody 0.2 0.0 - 0.9 s/co ratio [facility] ([facility]) 11/13/2017 1:39 PM DIGITAL CONTENT SPECIALIST 11/13/2017 Narrative [facility] ([facility]) - 11/14/2017 7:11 AM DIGITAL CONTENT SPECIALIST Performed at: ??01 - [facility] [address] ??[id number] Customs Import Specialist: Wayne Kelly PhD, Phone: ??[phone] Christos Kt Blum MD LAB - CHEMISTRY ORDERABLES [facility]) [address] [place] [address] from Last 3 Months or Most Recently Relevant to Health Maintenance Care Teams Online Facilitator Relationship Specialty Start Date End Date Dale Funes MD PCP - General 03/14/18
--- OUTSIDE RECORDS SUMMARY | 2024-11-03 20:14 | XMS_ITS | Encounter Summary ---
Author Organization [facility] Healthcare Address [address] [place] [address] Care Team Providers Care Retail Special Event Associate Name Role Phone Dale Funes MD Unavailable [phone] Dale Funes MD Primary Care Provider [phone] Reason for Visit * Auth/Cert (Routine) Specialty Diagnoses / Procedures Referred By Contac t Referred To Contact Diagnoses Other diseases of stomach and duodenum Other diseases of stomach and duodenum [K31.89] Procedures MD EDG US EXAM SURGICAL ALTER STOM DUODENUM/JEJUNUM EUS SC/OA/Interventional Referral ID Status Reason Start Date Expiration Date Visits Re quested Visits Authorized [id number] 1 1 Encounter Details Date Type Department Care Team (Late st Contact Info) Description 03/10/2023 8:01 AM CDT Anesthesia Event [facility] [address] [place] [address] Juan Montanez MD [address] [facility] [address] [place] [address] Asha Del Cid MLT Anesthesia Record Procedure Summary Procedure Name Responsible Anesthesiologist Anesthesia Start Time Anesthesia Stop Time EUS SC/OA/Interventiona l (Left) Juan Montanez MD 03/10/23 0801 03/10/23 0845 Events Date Time Event Comment 03/10/2023 0755 0801 An Start 0801 An Start Data 0801 In Room 0803 Start Supplemental O2 0803 Patient Positioned Laterally 0803 Bite Block Placed 0804 An Induction The patient was reevaluated immediately before moderate or deep sedation use and before anesthesia induction. 0806 Anesthesia Ready 0807 Proc Start 0814 An Data Art ECG picking up incorrectly despite adjustments made to ECG monitor. 0837 Proc Fin 0841 an stop data 0842 Out of Room 0845 Handoff to RN I completed my handoff to the receiving nurse during which we: 1. Patient identified 2. Responsible provider identified 3. Pertinent medical history reviewed 4. Procedure type and surgical course discussed 5. Intraoperative anesthetic management and any significant issues discussed 6. Expectations and concerns for postop period discussed 7. Questions solicited from receiving nurse 8. Patient disposition at the time of handoff: phase II 0845 An Stop Meds Name Total lidocaine (cardiac) syringe 2 % 100 mg propofol 180 mg propofol 833.05 mg phenylephrine 100 mcg/mL 200 mcg sodium chloride 0.9% infusion 0 mL * Agents Name O2% N2O O2 * Blood No blood administrations on file. 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 TAX Gender Identity Not on file Sexual Orientation Not on file documented as of this encounter OR Notes * Anesthesia Postprocedure Evaluation - Juan Montanez MD - 03/10/2023 9:02 AM CDT Patient: Teo Martinez Procedure Summary Date: 03/10/23 Room / Location: [facility] Anesthesia Start: 800 Anesthesia Stop: 844 Procedures: EUS SC/OA/Interventional (Left) ENDO ADD ON ESOPHAGOGASTRODUODENOSCOPY REMOVAL SNARE Diagnosis: Other diseases of stomach and duodenum (Other diseases of stomach and duodenum [K31.89]) Providers: Rosario Bravo MD Responsible Provider: Juan Montanez MD Anesthesia Type: MAC ASA Status: 3 Anesthesia Type: MAC Last vitals BP (!) 84/48 Pulse 70 Temp 36.7 ??C (98.1 ??F) (Temporal) Resp 14 SpO2 96% Anesthesia Post Evaluation Patient location during evaluation: PACU Patient participation: complete - patient participated Level of consciousness: fully awake Pain score: 0 Pain management: adequate Airway patency: adequate Cardiovascular status: hemodynamically stable Respiratory status: acceptable and room air Hydration status: acceptable Pt is: normothermic Nausea/Vomiting status: none No notable events documented. * Anesthesia Preprocedure Evaluation - Juan Montanez MD - 03/10/2023 7:54 AM CDT Images from the original note were not included. Anesthesia Evaluation Teo Martinez is a 67 y.o. male Procedure(s): EUS SC/OA/Interventional Pre-Op Diagnosis Codes: * Other diseases of stomach and duodenum [K31.89] Patient Active Problem List Diagnosis ??? Lymphadenopathy ??? Mass of neck ??? Disease of thyroid gland ??? Bulging of cervical intervertebral disc ??? Bulge of lumbar disc without myelopathy ??? S/P cervical spinal fusion Past Medical History: Diagnosis Date ??? Arthritis ??? Asthma ??? Diabetes mellitus (HCC) ??? GERD (gastroesophageal reflux disease) ??? Gout ??? Hypercholesteremia ??? Hypertension ??? Hypothyroidism ??? Injury of neck Neck injury - (Added by TW Conv) ??? Kidney stone ??? Personal history of other diseases of the circulatory system History of hypertension - (Added by TW Conv) ??? Personal history of other diseases of the digestive system History of gastroesophageal reflux (GERD) - (Added by TW Conv) ??? Personal history of other diseases of the respiratory system History of asthma - (Added by TW Conv) ??? Personal history of other endocrine, nutritional and metabolic disease History of diabetes mellitus - (Added by TW Conv) ??? Personal history of urinary calculi History of renal calculi - (Added by TW Conv) ??? Thyroid disease ??? Type 2 diabetes mellitus (HCC) Past Surgical History: Procedure Laterality Date ??? BACK SURGERY ??? CHOLECYSTECTOMY ??? KNEE SURGERY Bilateral Knee Surgery - (Added by TW Conv) ??? NECK SURGERY Neck Surgery - (Added by TW Conv) ??? MD ARTHRD ANT INTERBODY MIN DSC CRV BELOW C2 Cervical Vertebral Fusion - (Added by TW Conv) ? ? MD RPR UMBILICAL HERNIA < 5 YRS REDUCIBLE Umbilical Hernia Repair - (Added by TW Conv) ??? SHOULDER SURGERY Bilateral ??? THYROIDECTOMY No Known Allergies Med List Status: Nurse Complete Set By: Mukul Chavez RN at 03/10/2023 7:23 AM Taking? Last Dose Start Date End Date Provider allopurinol (ZYLOPRIM) 300 mg tablet 03/09/2023 06/17/19 -- Chiqui Wynn MD aspirin 81 mg enteric coated tablet 03/09/2023 -- -- Chiqui Wynn MD calcium carbonate ([id number]) 1,250 MG (500 mg of elemental calcium) tablet 03/09/2023 -- -- Chiqui Wynn MD cholecalciferol (VITAMIN D-3) 50,000 unit capsule 03/09/2023 12/18/22 -- Chiqui Wynn MD cyclobenzaprine (FLEXERIL) 10 mg tablet Unknown 07/12/19 -- Chiqui Wynn MD diphenhydrAMINE (BENADRYL) 25 mg capsule -- -- -- ProviderChiqui MD DULoxetine (CYMBALTA) 30 mg capsule 03/09/2023 02/19/23 -- Chiqui Wynn MD ergocalciferol (VITAMIN D) 50,000 unit capsule -- -- -- Chiqui Wynn MD levothyroxine (SYNTHROID) 150 mcg tablet 03/09/2023 06/14/19 -- Chiqui Wynn MD lisinopriL (PRINIVIL,ZESTRIL) 40 mg tablet 03/10/2023 01/23/23 -- ProviderChiqui MD meloxicam (MOBIC) 7.5 mg tablet Unknown 07/11/19 -- Chiqui Wynn MD metFORMIN XR (GLUCOPHAGE XR) 500 mg 24 hr tablet 03/09/2023 06/11/19 -- Chiqui Wynn MD methylPREDNISolone (Medrol, Heriberto,) 4 mg Dosepack Unknown 10/14/21 -- Idania Richardson NP follow package directions multivitamin tablet 03/09/2023 -- -- ProviderChiqui MD pantoprazole (PROTONIX) 40 mg EC tablet 03/09/2023 06/11/19 -- Chiqui Wynn MD senna-docusate (PERICOLACE) 8.6-50 mg 03/09/2023 -- -- Chiqui Wynn MD simvastatin (ZOCOR) 20 mg tablet 03/09/2023 06/11/19 -- Chiqui Wynn MD traMADoL (ULTRAM) 50 mg tablet -- 01/25/23 -- Chiqui Wynn MD vitamin E (vitamin E) 400 unit capsule 03/09/2023 -- -- Provider, MD Chiuqi Current Facility-Administered Medications: ??? ondansetron (ZOFRAN) injection 4 mg, 4 mg, intravenous, Q6H PRN ??? sodium chloride 0.9% flush 0.5-20 mL, 0.5-20 mL, intra-catheter, PRN ??? sodium chloride 0.9% infusion, 30 mL/hr, intravenous, Continuous, Last Rate: 30 mL/hr at 03/10/23 0749, Rate Verify at 03/10/23 0749 Social History Tobacco Use Smoking Status Former Smokeless Tobacco Never Vaping Use Vaping Status Never Used Alcohol Use: Not At Risk (03/10/2023) AUDIT-C ??? Frequency of Alcohol Consumption: Monthly or less ??? Average Number of Drinks: 1 or 2 ??? Frequency of Binge Drinking: Never Substance and Sexual Activity Drug Use Never Family History Problem Relation Age of Onset ??? Emphysema Father Family history of emphysema - (Added by [facility] Conv) ??? Heart disease Mother Family history of cardiac disorder - (Added by [employer] Conv) ??? Heart disease Other Family history of cardiac disorder - (Added by [facility] Conv) ??? Hypertension Other Family history of hypertension - (Added by [employer] Conv) Vitals: 03/10/23 0729 BP: 149/95 Pulse: 77 Resp: 14 Temp: 36 ??C (96.8 ??F) SpO2: 95% PT: No results found for requested labs within last 30 days. INR: No results found for requested labs within last 30 days. APTT: No results found for requested labs within last 30 days. Hgb A1C: No results found for requested labs within last 30 days. CBC RBC: No results found for requested labs within last 30 days. RDW: No results found for requested labs within last 30 days. MCHC: No results found for requested labs within last 30 days. MCH: No results found for requested labs within last 30 days. MCV: No results found for requested labs within last 30 days. Hct: No results found for requested labs within last 30 days. Hgb: No results found for requested labs within last 30 days. WBC: No results found for requested labs within last 30 days. MPV: No results found for requested labs within last 30 days. Platelets: No results found for requested labs within last 30 days. RDW CV: No results found for requested labs within last 30 days. RDW Sd: No results found for requested labs within last 30 days. BMP Glucose: 03/10/2023: 117 mg/dL Calcium: No results found for requested labs within last 30 days. Sodium: No results found for requested labs within last 30 days. Potassium: No results found for requested labs within last 30 days. CO2: No results found for requested labs within last 30 days. Chloride: No results found for requested labs within last 30 days. BUN: No results found for requested labs within last 30 days. Creatinine: No results found for requested labs within last 30 days. DOS Physical Exam Medical history, medications, and allergies reviewed. Attestation: With today's edits, I endorse the findings of the procedural assessment dated: 03/10/2023. Airway Exam: Mallampati: II Cervical ROM: limited extension TM distance: normal Cardiovascular Exam: Rate: regular Rhythm: regular Pulmonary Exam: LCTA, bilat EENT Exam: trachea midline Dental Exam: Appears intact Skin Exam: Skin is warm. Abdominal Exam: Abdomen is soft. Current state: Patient's current state is cooperative and interactive. Additional comments: Slightly limited neck extension Anesthesia Plan ASA 3 My patient is approved for the Anesthesia Controlled Medication protocol when under care of a RAIL MAINTENANCE WORKER Planned anesthesia: MAC Induction: Induction: intravenous. Postoperative Plan: No plan for postoperative opioid use. No postoperative mechanical ventilation intended. Patient's planned disposition post procedure is Outpatient. Informed Consent: Discussed plan with RAIL MAINTENANCE WORKER. Anesthesia plan and risks discussed with patient. Consent and Attending signature: I and/or my designee have discussed the anesthesia plan, benefits, possible alternatives, parental presence at time of induction (if indicated), and clinically relevant risks that may include dental injury, unintentional awareness, and/or other complications. The patient and/or parent/legal guardian understand, and agree to proceed. All questions answered. documented in this encounter Plan of Treatment Not on file documented as of this encounter Visit Diagnoses Not on filedocumented in this encounter Administered Medications Inactive Administered Medications - up to 3 most recent administrations Medication Order MAR Action Action Date Dose Rate Site lidocaine (cardiac) (XYLOCAINE) preservative free injection intravenous, As needed, Starting on Mon03/10/23 at 0803, Anesthesia Intra-op, Indications: Ventricular ArrhythmiasIndications:Ventricula r Arrhythmias Given 03/10/2023 8:03 AM CDT 100 mg phenylephrine (ANDRES-SYNEPHRINE) 1 mg/10 mL (100 mcg/mL) in sodium chloride 0.9% (premix) intravenous, As needed, Starting on Mon03/10/23 at 0823, Anesthesia Intra-op Given 03/10/2023 8:33 AM CDT 100 mcg Given 03/10/2023 8:23 AM CDT 100 mcg propofoL (DIPRIVAN) 10 mg/mL IV intravenous, Continuous PRN, Starting on Mon03/10/23 at 0803, Anesthesia Intra-op Rate/Dose Change 03/10/2023 8:35 AM CDT 130 mcg/kg/min 102.57 mL/hr Rate/Dose Change 03/10/2023 8:30 AM CDT 160 mcg/kg/min 126 .24 mL/hr Rate/Dose Change 03/10/2023 8:27 AM CDT 175 mcg/kg/min 138 .075 mL/hr propofoL (DIPRIVAN) 10 mg/mL IV intravenous, As needed, Starting on Mon03/10/23 at 0803, Anesthesia Intra-op Given 03/10/2023 8:05 AM CDT 60 mg Given 03/10/2023 8:04 AM CDT 60 mg Given 03/10/2023 8:03 AM CDT 60 mg sodium chloride 0.9% infusion 30 mL/hr, intravenous, Continuous, Starting on Mon03/10/23 at 0800, Pre-Procedure (GI) Rate/Dose Change 03/10/2023 8:10 AM CDT 200 mL/hr Rate/Dose Verify 03/10/2023 8:01 AM CDT 30 mL/h r New Bag 03/10/2023 7:32 AM CDT 30 mL/hr 30 mL/hr documented in this encounter Care Teams Retail Special Event Associate Relationship Specialty Start Date End Date Dale Funes MD [address] [address] PCP - General Family Medicine 03/07/23 Dale Funes MD [address] [address] 06/25/19 documented as of this encounter
--- OUTSIDE RECORDS SUMMARY | 2024-11-03 20:14 | XMS_ITS | Clinical Summary ---
Author Organization [facility] Address [address] [address] Phone Care Team Providers Care Child'S Nurse Name Role Phone Dale Funes MD Primary Care Provider [phone] Allergies No known active allergies Medications allopurinol (ZYLOPRIM) 300 MG Tablet Take 300 mg by mouth 2 times daily. 7 Active SYNTHROID 150 MCG Tablet Take 0.15 mg by mouth daily. 7 Active metFORMIN (GLUCOPHAGE-XR) 500 MG TABLET SR 24 HR Take 500 mg by mouth 2 times daily (before breakfast and at bedtime). TAKES 2 PILLS IN AM AND IN PM 7 Active predniSONE (DELTASONE) 10 MG Tablet Take 10 mg by mouth daily. 7 Active Sennosides (SENNA LAX PO) Take by mouth daily. Active aspirin EC 81 MG Tablet Delayed Response Take 81 mg by mouth daily. Active calcium 500 MG Tablet Take by mouth daily. Active MULTIPLE VITAMINS PO Take by mouth. Act jay Cyanocobalamin (B-12 PO) Take by mouth. Activ e MAGNESIUM PO Take by mouth. Ac tive Cholecalciferol (VITAMIN D PO) Take by mouth daily. Active naproxen sodium (ALEVE) 220 MG Tablet Take 220 mg by mouth daily. Active pantoprazole (PROTONIX) 40 MG Tablet Delayed Response Take 40 mg by mouth daily. Active cefUROXime (CEFTIN) 500 MG Tablet Take 500 mg by mouth 2 times daily. Active simvastatin (ZOCOR) 20 MG Tablet Take 20 mg by mouth every evening. Active lisinopril-hydr oCHLOROthiazide (PRINZIDE, ZESTORETIC) 20-12.5 MG Tablet Take 1 Tab by mouth daily. Active Family History Medical History Relation Name Comments Cancer Father Emphysema Father Congestive Heart Failure Mother Heart Attack Mother Relation Name Status Comments Father Mother Social History Tobacco Use Types Packs/Day Years Used Date Smoking Tobacco: Former Cigarettes 1 6 Alcohol Use Standard Drinks/Week Comments Yes 0 (1 standard drink = 0.6 oz pur e alcohol) rare Sex and Gender Information Value Date Recorded Sex Assigned at Not on file Legal Sex Male 9:48 PM CDT Gender Identity Not on file Sexual Orientation Not on file Last Filed Vital Signs Vital Sign Reading Time Taken Comments Blood Pressure 120/94 03/03/2017 8:18 AM CDT Pulse 70 03/03/2017 6:35 AM CDT Temperature 36 ??C (96.8 ??F) 03/03/2017 8:18 AM CDT Respiratory Rate 18 03/03/2017 8:18 AM CDT Oxygen Saturation 97% 03/03/2017 8:18 AM CDT Inhaled Oxygen Concentration - - Weight 136.1 kg (300 lb) 02/28/2017 1:00 PM CDT Height 185.4 cm (6' 1 ) 02/28/2017 1:00 PM CDT Body Mass Index 39.58 02/28/2017 1:00 PM CDT Plan of Treatment Health Maintenance Due Date Last Done Comments Hepatitis C Virus (HCV) Screening 1955 TdaP Immunization 1955 Colonoscopy 1999 Colorectal Cancer Screening 1999 Cologuard 2004 Immunochemical Fecal Occult Blood 2004 Zoster Immunization (1 of 2) 2004 PSA Discussion 2009 Pneumococcal Immunization (5 0+ years) (1 of 1 - PCV) 2019 SARS-COV-2 Immunization (1 - 2022-24 season) 2023 Influenza Immunization (Se[place] on Ended) 2024 Hepatitis B Immunization Aged Out No longer eligible based on patient's age to complete this topic Meningococcal Immunization (ACWY) Aged Out No longer eligible based on patient's age to complete this topic Rotavirus Immunization Aged Out No lo nger eligible based on patient's age to complete this topic Insurance [facility] Care Teams Child'S Nurse Relationship Specialty Start Date End Date Dale Funes MD [address] [address] PCP - General Family Medicine 11/17/16
--- OUTSIDE RECORDS SUMMARY | 2024-11-03 20:14 | XMS_ITS | Continuity of Care Document ---
Author Organization [facility] Address [address] [place] [id number] Care Team Providers Care Discovery Guide Name Role Phone Dale Funes Primary Care Physician Encounter [facility] Financial Number [id number] Date(s): 12/28/23 - 12/29/[address] [id number] Encounter Diagnosis Frequent PVCs(Discharge Diagnosis) - 12/29/23 Discharge Disposition: Home or Self Care Attending Physician: Greg Espinal MD Admitting Physician: Greg Espinal MD Referring Physician: Dale Funes M.D. Allergies, Adverse Reactions, Alerts No Known Medication Allergies Assessment and Plan Future Appointments Appointment Date:04/22/2024 12:00:00 PM Scheduled Provider:Raquel Grijalva MD Location:[facility] Appointment Type:[facility] Established Patient Functional Status 12/28/23 Activity Assistance Independent 12/28/23 Living Situation Home independently Medications Aleve 220 mg oral capsule 220 [...] 1 tablet(s), Oral, daily, 90 tablet(s), Tablet(s), 0 Start Date: 12/28/23 Status: Ordered metFORMIN 500 mg oral tablet, extended release 1,000 mg, 2 tablet(s), bid, 0 Start Date: 05/13/19 Status: Ordered Metoprolol Succinate ER 25 mg oral tablet, extended release 25 mg, 1 tablet(s), Oral, daily, 100 tablet(s), Tablet CR, 0 Start Date: 12/28/23 Status: Ordered Multivitamin oral tablet 1 tablet(s), Oral, daily, 30 tablet(s), Tablet(s), 0 Start Date: 05/13/19 Status: Ordered naproxen 250 mg = 1 tablet(s), Tablet(s), Oral, 12/29/23 8:00:00 AM HEAD BANQUET WAITER/WAITRESS Start Date: 12/29/23 Stop Date: 12/29/23 Status: Completed pantoprazole 40 mg oral delayed release tablet [...] Capsule(s), 0 Start Date: 05/13/19 Status: Ordered Mental Status 12/29/23 Orientation_ND Oriented x4 Hearing Impairment None Vision Impairment None 12/28/23 Orientation Oriented x 4 Problem List Condition Confirmation Course Effective Dates Status Health St atus Informant Elevated coronary artery calcium score Confirmed Active Abnormal stress test Confirmed Active Carotid bruit Confirmed Active Chest pain Confirmed Active Ex-smoker Confirmed Active HLD (hyperlipidemia) Confirmed Active Mild HTN Confirmed Active PVCs (premature ventricular contractions) Confirmed Active Obesity Confirmed Active Pre-operative exam Confirmed Active Snoring Confirmed Active Diagnosis Diagnosis Type Effective Dates Health Status Clinical Service Informant Encounter for other specified special examinations 12/28/23 Non-Specified Procedures Procedure Date Related Diagnosis Body Site Status Cystectomy 2021 Completed Back care 2020 Completed Gallbladder operation 2017 Com pleted Kidney stone analysis 2008 Com pleted Spinal fusion 2007 Completed Hemorrhoid operation 1999 Comp leted bilateral knee surgeries Completed bilateral shoulder surgeries Completed cholecystectomy Completed neck surgery Completed REMOVAL OF THYROID Comple jennifer Results Laboratory List Name Date Glucose (POC) 12/28/23 ACT Plus 12/28/23 ACT Plus 12/28/23 ACT Plus 12/28/23 ABO and Rh Type 12/28/23 Antibody Screen 12/28/23 Most recent to oldest [Reference Range]: 1 2 3 Glucose (POC) [65-110 mg/dL] 138 mg/dL *H* (12/28/23 2:43 PM) ABO/Rh A POS *Unknown* (12/28/23 12:50 PM) Antibody Screen Negative (12/28/23 12:50 PM) ACT Plus [81-152 sec] 130 sec 1 (12/28/23 2:16 PM) 234 sec 2 *H* (12/28/23 1:59 PM) 240 sec 3 *H* (12/28/23 1:48 PM) 1Interpretive Data: Various target values have been published for different clinical indications. Contact the Laboratory or the Pharmacy for further information. 2Interpretive Data: Various target values have been published for different clinical indications. Contact the Laboratory or the Pharmacy for further information. 3Interpretive Data: Various target values have been published for different clinical indications. Contact the Laboratory or the Pharmacy for further information. Vital Signs Most recent to oldest [Reference Range]: 1 2 3 Temperature Temporal Artery [35.8-38 DegC] 36.3 DegC (12/29/23 8:46 AM) 36 DegC (12/29/23 8:11 AM) 36.3 DegC (12/29/23 3:27 AM) Peripheral Pulse Rate [60-100 bpm] 68 bpm (12/29/23 8:11 AM) 71 bpm (12/28/23 3:51 PM) 66 bpm (12/28/23 3:40 PM) Respiratory Rate [14-22 br/min] 16 br/min (12/29/23 8:46 AM) 18 br/min (12/29/23 8:11 AM) 16 br/min (12/29/23 3:27 AM) Blood Pressure [89-139/60-90 mm Hg] 119/58mm Hg (12/29/23 10:14 AM) 119/58mm Hg (12/29/23 8:46 AM) 132/60mm Hg (12/29/23 8:11 AM) Oxygen Therapy Room air (12/29/23 8:46 AM) Room air (12/29/23 8:11 AM) Room air (12/29/23 3:27 AM) Oxygen Flow Rate 3 L/min (12/28/23 4:03 PM) 3 L/min (12/28/23 3:51 PM) 3 L/min (12/28/23 3:30 PM) Height 185.4 cm (12/28/23 10:45 AM) Weight 138.1 kg (12/28/23 10:45 AM) Social History Social History Type Response Alcohol Current some day alc ohol user, 1-2 times per month Substance Abuse Never drug user Smoking Status Former smoker;Never; Tobacco Cessation Counseling Requested No; Stopped at age: 46; entered on: 08/21/23 Sex Hospital Discharge Instructions Patient Education 12/29/2023 10:13:40 About Arrhythmias About Arrhythmias Electrical impulses cause the normal heart to beat 60 to 100 times a minute while at rest. These impulses come from a natural pacemaker called the sinus node. It is, ??inside the right upper heart chamber. Electrical impulses travel throughout the upper heart chambers (the atria) before reaching the bottom muscle chambers ((the ventricles) through an electrical connection called the AV node. Eachimpulse causes the heart muscle to contract. This causes the blood to flow through the heart and out to the tissues and organs of your body. An arrhythmia is a change from the normal speed or pattern of these electrical impulses. This can cause the heart to beat too fast (tachycardia), too slow (bradycardia), or in an unsteady pattern (irregular rhythm). Symptoms of arrhythmias Different people experience arrhythmias differently. And different arrhythmias can cause different symptoms. Sometimes you may not have symptoms, but just notice a change in your pulse. Symptoms can include: ???Fluttering feeling in the chest ???Shortness of breath ???Chest pain or pressure ???Neck fullness ???Lightheadedness or dizziness ???Fainting or almost fainting ???Palpitations. This is the sense that your heart is fluttering or beating fast or hard or irregularly. ???Tiredness, fatigue, or weakness ???Cardiac arrest, and , in serious arrhythmias Causes of arrhythmias Arrhythmias are most often caused by heart disease, such as: ???Coronary artery disease ( blocked arteries ) ???Heart valve disease ???Enlarged heart ???High blood pressure ???Heart failure Other causes of??arrhythmia include: ???Certain medicines such as asthma inhalers and decongestants ???Some herbal supplements ???Cardiac stimulant drugs such as cocaine, amphetamine, and diet pills, and certain decongestant cold medicines, caffeine, and nicotine ???Heavy use of alcohol ???Anxiety and panic disorder ???Thyroid disease ???Anemia ???Diabetes ???Sleep apnea ???Obesity ???Congenital heart disease ???Cardiac genetic diseases ???Electrolyte imbalance. Electrolytes are substances that help regulate normal heartbeat., High orlow levels of certain electrolytes such as potassium or magnesium may affect the heartbeat and contribute to arrhythmia. Arrhythmias can often be prevented. The cause and type of arrhythmia determines the best treatment.Sometimes your doctor may want to monitor your heart rate over a 24-hour period or longer. This canhelp find the cause of your arrhythmia and find the best treatment. This can be done with a Holter monitor. This is??a portable electrocardiogram (ECG) recording device attached by wires to your chest. Or you may get an event monitor, which you can place over the skin in front of your heart to record heart rhythms. You can carry this with you as you go about your routine activities during the monitoring period. Implantable loop recorders may also be used to monitor the heart rhythm for up to 3 years. This miniature device is placed underneath the skin over the heart. Home care These guidelines will help you care for yourself at home: ???Stay away from cardiac stimulants such as cocaine, amphetamine, diet pills, certain decongestantcold medicines, caffeine, and nicotine. ???If you smoke, stop smoking. Contact your doctor or a local stop-smoking program for help. ???Tell your doctor about any prescription, [id number], or herbal medicines you take. These may be affecting your heart rhythm. Follow-up care Follow up with your healthcare provider, or as advised. If a Holter monitor has been recommended, contact the field marketing specialist??you have been referred to??as soon as you can??picking tech the device. Other outpatient tests may also be arranged for you at that time. Call 911 This is the fastest and safest way to get to the emergency department. The paramedics can also start treatment on the way to the hospital, if needed. Don't??wait until your symptoms are severe to call 911. Other reasons to call 911 besides chest pain include: ???Chest pain radiating to the shoulder, arm, neck, or back. ???Shortness of breath ???Feeling lightheaded, faint, or dizzy ???Unexplained fainting ???Rapid heart beat ???Slower than usual heart rate compared to your normal ???Very irregular heartbeat ???Chest pain (angina) with weakness, dizziness, heavy sweating, nausea, or vomiting ???Extreme drowsiness, or confusion ???Weakness of an arm or leg or one side of the face ???Trouble with speech or vision When to seek medical advice Remember, things are not always like they are on TV. Sometimes it is not so obvious. You may only feel weak or just not right. If it is not clear or if you have any doubt, call for advice. ???Seek help for chest pain, or if something feels different from usual, even if your symptoms are mild. ???Don't drive yourself. Have someone else drive. If no one can drive you, call 911. ???If your doctor has given you medicines to take when you have symptoms, take them, but don't delay getting help while trying to find them. ?? [id number] [employer]. All rights reserved. This information is not intended as a substitute for professional medical care. Always follow your healthcare professional's instructions. Note * Alexia Castro RN Care Manager: PERFORM Event Display: Vital Signs at Discharge - Text Authored Date: Vital Signs at Discharge Entered On: 12/29/2023 10:14 HEAD BANQUET WAITER/WAITRESS Performed On: 12/29/2023 10:14 HEAD BANQUET WAITER/WAITRESS by Alexia Castro RN Care Manager Vital Signs Systolic Blood Pressure : 119 mm Hg Diastolic Blood Pressure : 58 mm Hg (L) Alexia Castro RN Care Manager - 12/29/2023 10:14 HEAD BANQUET WAITER/WAITRESS * Alexia Castro RN Care Manager: PERFORM Event Display: Nursing Discharge Instructions - Text Authored Date: Nursing Discharge Instructions Entered On: 12/29/2023 10:13 HEAD BANQUET WAITER/WAITRESS Performed On: 12/29/2023 10:13 HEAD BANQUET WAITER/WAITRESS by Alexia Castro RN Care Manager Patient Discharge Location Discharge Location IP : Home Discharge Location IP Home : Yes Alexia Castro RN Care Manager - 12/29/2023 10:13 HEAD BANQUET WAITER/WAITRESS Home Discharge Instructions Inpatient/Observation Instructions : After you leave the hospital, you may call the Nursing Unit within 24 hours of your discharge if you have any questions about these instructions. If any medical problems occur or your symptoms get worse, call your doctor immediately. Inpatient/Observation Instructions Freetext : After you leave the hospital, you may call the Nursing Unit within 24 hours of your discharge if you have any questions about these instructions. In any medical problems occur or your systems get worse, or you have questions, call your doctor immediately Patient Home Medications Returned : No home medications Nursing Unit Wound Measured at Discharge : N/A Alexia Castro speech clinician - 12/29/2023 10:13 HEAD BANQUET WAITER/WAITRESS * Alexia Castro speech clinician: PERFORM Event Display: Pain Reassessment - Text Authored Date: [id number] Pain Reassessment Entered On: 12/29/2023 08:57 HEAD BANQUET WAITER/WAITRESS Performed On: 12/29/2023 08:57 HEAD BANQUET WAITER/WAITRESS by Alexia Castro speech clinician Intervention Information: naproxen Performed by Alexia Castro speech clinician on 12/29/2023 08:13:00 HEAD BANQUET WAITER/WAITRESS naproxen,250mg Oral Pain Response Primary Pain Intensity : 0 Pain Medication Effective : Yes Alexia Castro speech clinician - 12/29/2023 08:57 HEAD BANQUET WAITER/WAITRESS * Event Display: Authorization to Treat Authored Date: [id number] * Event Display: Authorization to Treat Authored Date: [id number] * Jose C Anderson M.D.: PERFORM, MODIFY, SIGN, VERIFY Event Display: Anesthesia Preoperative Evaluation Authored Date: [id number] Patient: LIBERTAD LORENZO Age: 68 years Sex: Male : 1955 Associated Diagnoses: None Author: Jose C Anderson M.D. Preoperative Information Patient NPO Status: Last Intake Info from Nurses Notes : Last Fluid/Food Intake 12/28/2023 10:45 HEAD BANQUET WAITER/WAITRESS Last Fluid Intake 12/28/2023 06:00 Last Food Intake 12/27/2023 18:00 . NPO > 8 hrs Anesthesia history: Patient history: Difficult intubation. Re-evaluation prior to induction: Completed. Review of Systems Respiratory: Negative. Cardiovascular: Tachycardia. Gastrointestinal: Negative, No heartburn. Health Status Allergies: Allergic Reactions (All) No Known Medication Allergies, Allergies (1) Active Severity Reaction No Known Medication Allergies None Documented Current medications: Home Medications (20) Active Aleve 220 mg oral capsule 220 mg = 1 capsule(s), daily allopurinol 300 mg oral tablet 300 mg = 1 tablet(s), Oral, daily amLODIPine 5 mg oral tablet 5 mg = 1 tablet(s), Oral, daily aspirin 81 mg oral enteric coated tablet 81 mg = 1 tablet(s), Oral, daily Benadryl 25 mg oral tablet 25 mg = 1 tablet(s), bid Calcium cholecalciferol 5000 intl units oral capsule 5,000 unit(s) = 1 capsule(s), daily DULoxetine 30 mg ora capsule 30 mg = 1 capsule(s), Oral, daily lisinopril 40 mg oral tablet 40 mg = 1 tablet(s), Oral, daily metFORMIN 500 mg oral tablet, extended release 1,000 mg = 2 tablet(s), bid Metoprolol Succinate ER 25 mg oral tablet, extended release 25 mg = 1 tablet(s), Oral, daily Multivitamin oral tablet 1 tablet(s), Oral, daily pantoprazole 40 mg oral delayed release tablet 40 mg = 1 tablet(s), Oral, daily before breakfast rOPINIRole 0.25 mg oral tablet 0.25 mg = 1 tablet(s), Oral/Per Tube, bid rosuvastatin 20 mg oral tablet 20 mg = 1 tablet(s), Oral, qhs Senna 8.6 mg oral tablet , qpm Synthroid 150 mcg (0.15 mg) oral tablet 150 mcg = 1 tablet(s), Oral, daily before breakfast triamcinolone 0.025% cream 1 Applic, Topical, tid Vitamin B12 1000 mcg oral tablet vitamin E 400 intl units oral capsule 400 unit(s) = 1 capsule(s), Oral, daily Problem list: All Problems Abnormal stress test / SNOMED CT 3322826119 / Confirmed Carotid bruit / SNOMED CT 1640167278 / Confirmed Chest pain / SNOMED CT 86574639 / Confirmed Elevated coronary artery calcium score / SNOMED CT 6681670873 / Confirmed Ex-smoker / SNOMED CT 40558268 / Confirmed Former smoker / SNOMED CT 91422259 / Confirmed HLD (hyperlipidemia) / SNOMED CT 99719044 / Confirmed Mild HTN / SNOMED CT 1228309932 / Confirmed Obesity / SNOMED CT 6485854808 / Confirmed Pre-operative exam / SNOMED CT 260999562 / Confirmed PVCs (premature ventricular contractions) / SNOMED CT 412762145 / Confirmed Snoring / SNOMED CT 926916183 / Confirmed, Active Problems (12) Abnormal stress test Carotid bruit Chest pain Elevated coronary artery calcium score Ex-smoker Former smoker HLD (hyperlipidemia) Mild HTN Obesity Pre-operative exam PVCs (premature ventricular contractions) Snoring Histories Family History: Heart disease Mother () Brother Hypertension Mother () Diabetes Mother () Procedure history: Cystectomy (6125399421) in 2021 at 67 Years. Back care (813598465) in 2020 at 66 Years. Gallbladder operation (626145104) in 2017 at 63 Years. Kidney stone analysis (53056999) in 2008 at 54 Years. Spinal fusion (31566972) in 2007 at 53 Years. Hemorrhoid operation (493723022) in 1999 at 45 Years. neck surgery. bilateral knee surgeries. bilateral shoulder surgeries. REMOVAL OF THYROID (60852). cholecystectomy. Physical Examination PACU - Vital Signs 12/28/2023 10:45 HEAD BANQUET WAITER/WAITRESS Temperature Temporal Artery 36 DegC Peripheral Pulse Rate 82 bpm Respiratory Rate 16 br/min Systolic Blood Pressure 132 mm Hg Diastolic Blood Pressure 96 mm Hg H Primary Pain Intensity 0 = No pain Oxygen Therapy Room air Oxygen Saturation 100 % Measurements from flowsheet : Measurements 12/28/2023 10:45 HEAD BANQUET WAITER/WAITRESS Height 185.4 cm Weight 138.1 kg General: Alert and oriented, No acute distress. Appearance: Morbidly obese. Airway: Mallampati classification: III (soft palate, base of uvula visible). Distance: Thyromental, Adequate. Mouth: Adequate opening. Neck: Able to place in sniff position, No full range of motion. Respiratory: Respirations are non-labored. Cardiovascular: Normal rate, Regular rhythm. Neurologic: Alert, Oriented. Review / Management Results Review: Anesthesia View : Anesthesia View 12/19/2023 08:50 HEAD BANQUET WAITER/WAITRESS Hemoglobin 13.8 g/dL (Modified) WBC 9.1 Thousand/uL (Modified) Hematocrit 42.6 % (Modified) Platelet 222 Thousand/uL (Modified) Sodium 140 mmol/L Potassium 4.3 mmol/L Chloride 102 mmol/L CO2 27 mmol/L BUN 17 mg/dL Glucose 219 mg/dL H Creatinine 1.06 mg/dL Calcium 9.0 mg/dL . Results review Cardiology Results: Echocardiogram: Reviewed Toy Maker's report. Plan [place] [employer] Anesthesiologists (ASA) physical status classification: Class III. Anesthetic Preoperative Plan Anesthesia: General. Anesthetic plan, risks, benefits, and alternatives discussed with the patient and/or family. Risks discussed. Patient verbalized understanding. Informed consent was given. Consent was signed by the patient. [Electronically Signed on 12/28/2023 12:19 PM HEAD BANQUET WAITER/WAITRESS] Jose C Anderson M.D. * Jose C Anderson M.D.: PERFORM, SIGN, VERIFY Event Display: Anesthesia Postoperative Evaluation Authored Date: Patient: LIBERTAD LORENZO Age: 68 years Sex: Male : 1955 Associated Diagnoses: None Author: Jose C Anderson M.D. Postoperative Information Post Operative Note: Post Anesthesia Care Unit. Anesthetic utilized: General. Physical Examination PACU - Vital Signs 12/28/2023 16:18 HEAD BANQUET WAITER/WAITRESS Heart Rate Monitored 74 bpm Respiratory Rate 18 br/min Systolic Blood Pressure 105 mm Hg Diastolic Blood Pressure 73 mm Hg 12/28/2023 16:03 HEAD BANQUET WAITER/WAITRESS Heart Rate Monitored 67 bpm Respiratory Rate 20 br/min Systolic Blood Pressure 97 mm Hg Diastolic Blood Pressure 69 mm Hg Primary Pain Intensity 0 = No pain Oxygen Therapy Nasal cannula Oxygen Saturation 96 % Oxygen Flow Rate 3 L/min 12/28/2023 15:51 HEAD BANQUET WAITER/WAITRESS Temperature Temporal Artery 36.4 DegC Peripheral Pulse Rate 71 bpm Respiratory Rate 23 br/min H Systolic Blood Pressure 94 mm Hg Diastolic Blood Pressure 64 mm Hg Oxygen Therapy Nasal cannula Oxygen Saturation 92 % Oxygen Flow Rate 3 L/min 12/28/2023 15:40 HEAD BANQUET WAITER/WAITRESS Peripheral Pulse Rate 66 bpm Heart Rate Monitored 69 bpm Respiratory Rate 17 br/min Systolic Blood Pressure 94 mm Hg Diastolic Blood Pressure 64 mm Hg Pain Med Sedation Score S = Sleepy; normal to arouse Respiratory Sedation Assessment Respirations >=10, Regular rate and rhythm, Unlabored Primary Pain Intensity 3 = mild pain Primary Pain Alleviating Factors Rest Oxygen Therapy Nasal cannula Oxygen Saturation 93 % PT having symptoms of nausea + vomiting? No 12/28/2023 15:30 HEAD BANQUET WAITER/WAITRESS Peripheral Pulse Rate 68 bpm Heart Rate Monitored 66 bpm Respiratory Rate 14 br/min Systolic Blood Pressure 106 mm Hg Diastolic Blood Pressure 63 mm Hg Pain Med Sedation Score Sleeping Respiratory Sedation Assessment Respirations >=10, Regular rate and rhythm, Unlabored Primary Pain Intensity 3 = mild pain Primary Pain Alleviating Factors Rest Oxygen Therapy Nasal cannula Oxygen Saturation 93 % Oxygen Flow Rate 3 L/min PT having symptoms of nausea + vomiting? No 12/28/2023 15:20 HEAD BANQUET WAITER/WAITRESS Peripheral Pulse Rate 73 bpm Heart Rate Monitored 75 bpm Respiratory Rate 15 br/min Systolic Blood Pressure 103 mm Hg Diastolic Blood Pressure 61 mm Hg Pain Med Sedation Score S = Sleepy; normal to arouse Respiratory Sedation Assessment Respirations >=10, Regular rate and rhythm, Unlabored Primary Pain Intensity 3 = mild pain Primary Pain Alleviating Factors Repositioning, Rest Oxygen Therapy Nasal cannula Oxygen Saturation 95 % Oxygen Flow Rate 3 L/min PT having symptoms of nausea + vomiting? No 12/28/2023 15:10 HEAD BANQUET WAITER/WAITRESS Peripheral Pulse Rate 65 bpm Heart Rate Monitored 66 bpm Respiratory Rate 16 br/min Systolic Blood Pressure 99 mm Hg Diastolic Blood Pressure 61 mm Hg Pain Med Sedation Score Sleeping Respiratory Sedation Assessment Respirations >=10, Regular rate and rhythm, Unlabored Primary Pain Intensity 0 = No pain Primary Pain Alleviating Factors Rest Oxygen Therapy Nasal cannula Oxygen Saturation 92 % Oxygen Flow Rate 3 L/min PT having symptoms of nausea + vomiting? No 12/28/2023 15:02 HEAD BANQUET WAITER/WAITRESS Systolic Blood Pressure 80 mm Hg L (Modified) Diastolic Blood Pressure 57 mm Hg L (Modified) 12/28/2023 15:00 HEAD BANQUET WAITER/WAITRESS Peripheral Pulse Rate 73 bpm Heart Rate Monitored 73 bpm Respiratory Rate 26 br/min H Systolic Blood Pressure 84 mm Hg L Diastolic Blood Pressure 61 mm Hg Pain Med Sedation Score Sleeping Respiratory Sedation Assessment Respirations >=10, Regular rate and rhythm, Unlabored Primary Pain Intensity 0 = No pain Primary Pain Alleviating Factors Rest Oxygen Therapy Nasal cannula Oxygen Saturation 91 % L Oxygen Flow Rate 3 L/min PT having symptoms of nausea + vomiting? No 12/28/2023 14:50 HEAD BANQUET WAITER/WAITRESS Peripheral Pulse Rate 71 bpm Heart Rate Monitored 71 bpm Respiratory Rate 16 br/min Systolic Blood Pressure 85 mm Hg L Diastolic Blood Pressure 30 mm Hg L* Pain Med Sedation Score S = Sleepy; normal to arouse Primary Pain Intensity 0 = No pain Primary Pain Alleviating Factors Rest Oxygen Therapy Nasal cannula Oxygen Saturation 95 % Oxygen Flow Rate 3 L/min PT having symptoms of nausea + vomiting? No 12/28/2023 14:40 HEAD BANQUET WAITER/WAITRESS Peripheral Pulse Rate 70 bpm Heart Rate Monitored 72 bpm Respiratory Rate 12 br/min L Systolic Blood Pressure 79 mm Hg L* Diastolic Blood Pressure 60 mm Hg Pain Med Sedation Score S = Sleepy; normal to arouse Primary Pain Intensity 0 = No pain Primary Pain Alleviating Factors Rest Oxygen Therapy Nasal cannula Oxygen Saturation 95 % Oxygen Flow Rate 3 L/min PT having symptoms of nausea + vomiting? No 12/28/2023 14:30 HEAD BANQUET WAITER/WAITRESS Temperature Temporal Artery 36.5 DegC Peripheral Pulse Rate 73 bpm Heart Rate Monitored 70 bpm Respiratory Rate 19 br/min Systolic Blood Pressure 124 mm Hg Diastolic Blood Pressure 91 mm Hg H Pain Med Sedation Score 2 = Moderate sedation; drowsy, responds after name is called Primary Pain Intensity 0 = No pain Primary Pain Alleviating Factors Rest Oxygen Therapy Nasal cannula Oxygen Saturation 96 % Oxygen Flow Rate 6 L/min PT having symptoms of nausea + vomiting? No 12/28/2023 10:45 HEAD BANQUET WAITER/WAITRESS Temperature Temporal Artery 36 DegC Peripheral Pulse Rate 82 bpm Respiratory Rate 16 br/min Systolic Blood Pressure 132 mm Hg Diastolic Blood Pressure 96 mm Hg H Primary Pain Intensity 0 = No pain Oxygen Therapy Room air Oxygen Saturation 100 % Pain assessment: Self-reports no pain. General: Nausea and Vomiting: No complaint of nausea and vomiting. Hydration: Within normal limits. Respiratory: Respirations are non-labored. Cardiovascular: Normal rate, Regular rhythm. Neurologic: Oriented. Review / Management Chief Ii Dispatcher: Reveals a Normal sinus rhythm. Condition: Stable. Assessment Anesthetic outcome No anesthetic complications noted. Adequate pain relief. ZULEYKA Precautions. No Complaint of nausea and vomiting. Plan Transfer/ Discharge: Patient can be discharged from PACU when criteria met. Condition good. [Electronically Signed on 12/28/2023 04:28 PM HEAD BANQUET WAITER/WAITRESS] Jose C Anderson M.D. * Pratibha Clay RN: PERFORM Event Display: Adult Admission History-Regional Rehabilitation Director/EP-Text Authored Date: [id number] Adult Admission History Regional Rehabilitation Director/EP/Cardiology Services Entered On: 12/28/2023 10:42 HEAD BANQUET WAITER/WAITRESS Performed On: 12/28/2023 10:40 HEAD BANQUET WAITER/WAITRESS by Pratibha Clay RN Preferred Language Preferred Language of Patient/Caregiver : Divehi Preferred Mode of Communication : Verbal Pratibha Clay RN - 12/28/2023 10:40 HEAD BANQUET WAITER/WAITRESS Communication/Educational Needs Preferred Mode of Communication : Verbal Pratibha Clay RN - 12/28/2023 10:40 HEAD BANQUET WAITER/WAITRESS Problem List Adult Past Medical History Reviewed : Yes Pratibha Clay Enriqueta RN - 12/28/2023 10:40 HEAD BANQUET WAITER/WAITRESS (As Of: 12/28/2023 10:42 HEAD BANQUET WAITER/WAITRESS) Problems(Active) Abnormal stress test (SNOMED CT :5502145836 ) Name of Problem: Abnormal stress test ; Recorder: Jay Martinez MD; Confirmation: Confirmed ; Classification: Medical ; Code: [id number] ; Contributor System: PowerChart ; Last Updated: 05/14/201908:41 CDT ; Life Cycle Date: 05/14/2019 ; Life Cycle Status: Active ; Responsible Provider: Jay Martinez MD; Vocabulary: SNOMED CT Carotid bruit (SNOMED CT :3700249951 ) Name of Problem: Carotid bruit ; Recorder: Raquel Grijalva MD; Confirmation: Confirmed ; Classification: Medical ; Code: [id number] ; Contributor System: WAY SystemsChart ; Last Updated: 08/21/2023 12:01 CDT ; Life Cycle Date: 08/21/2023 ; Life Cycle Status: Active ; Responsible Provider: Raquel Grijalva MD; Vocabulary: SNOMED CT Chest pain (SNOMED CT :88712482 ) Name of Problem: Chest pain ; Recorder: Jay Martinez MD; Confirmation: Confirmed ; Classification: Medical ; Code: [id number] ; Contributor System: PowerChart ; Last Updated: 05/14/2019 08:41 CDT ;Life Cycle Date: 05/14/2019 ; Life Cycle Status: Active ; Responsible Provider: Jay Martinez MD; Vocabulary: SNOMED CT Elevated coronary artery calcium score (SNOMED CT :8950855462 ) Name of Problem: Elevated coronary artery calcium score ; Recorder: Raquel Grijalva MD; Confirmation: Confirmed ; Classification: Medical ; Code: [id number] ; Contributor System: PowerChart ; Last Updated: 08/21/2023 12:01 CDT ; Life Cycle Date: 08/21/2023 ; Life Cycle Status: Active ; Responsible Provider: Raquel Grijalva MD; Vocabulary: SNOMED CT Ex-smoker (SNOMED CT :21460397 ) Name of Problem: Ex-smoker ; Recorder: Jay Martinez MD; Confirmation: Confirmed ; Classification: Medical ; Code: [id number] ; Contributor System: PowerChart ; Last Updated: 05/14/2019 08:41 CDT ; Life Cycle Date: 05/14/2019 ; Life Cycle Status: Active ; Responsible Provider: Jay Martinez MD; Vocabulary: SNOMED CT Former smoker (SNOMED CT :87786951 ) Name of Problem: Former smoker ; Recorder: System, System; Confirmation: Confirmed ; Classification: Patient Stated ; Code: [id number] ; Last Updated: 08/21/2023 11:27 CDT ; Life Cycle Date: 08/21/2023; Life Cycle Status: Active ; Vocabulary: SNOMED CT HLD (hyperlipidemia) (SNOMED CT :34100666 ) Name of Problem: HLD (hyperlipidemia) ; Recorder: Jay Martinez MD; Confirmation: Confirmed ; Classification: Medical ; Code: [id number] ; Contributor System: PowerChart ; Last Updated: 05/14/2019 08:41 CDT ; Life Cycle Date: 05/14/2019 ; Life Cycle Status: Active ; Responsible Provider: Jay Martinez MD; Vocabulary: SNOMED CT Mild HTN (SNOMED CT :1608722253 ) Name of Problem: Mild HTN ; Recorder: aJy Martinez MD; Confirmation: Confirmed ; Classification: Medical ; Code: [id number] ; Contributor System: PowerChart ; Last Updated: 05/14/2019 08:41 CDT ;Life Cycle Date: 05/14/2019 ; Life Cycle Status: Active ; Responsible Provider: Jay Martinez MD; Vocabulary: SNOMED CT Obesity (SNOMED CT :2522107988 ) Name of Problem: Obesity ; Recorder: Jay Martinez MD; Confirmation: Confirmed ; Classification: Medical ; Code: [id number] ; Contributor System: PowerChart ; Last Updated: 05/14/2019 08:41 CDT ; Life Cycle Date: 05/14/2019 ; Life Cycle Status: Active ; Responsible Provider: Jay Martinez MD; Vocabulary: SNOMED CT Pre-operative exam (SNOMED CT :009064590 ) Name of Problem: Pre-operative exam ; Recorder: Jay Martinez MD; Confirmation: Confirmed ; Classification: Medical ; Code: [id number] ; Contributor System: PowerChart ; Last Updated: 05/14/2019 08:41 CDT ; Life Cycle Date: 05/14/2019 ; Life Cycle Status: Active ; Responsible Provider: Anselmo Martinez MD; Vocabulary: SNOMED CT PVCs (premature ventricular contractions) (SNOMED CT :914140819 ) Name of Problem: PVCs (premature ventricular contractions) ; Recorder: Raquel Grijalva MD; Confirmation: Confirmed ; Classification: Medical ; Code: [id number] ; Contributor System: [employer] ; Last Updated: 08/21/2023 12:01 CDT ; Life Cycle Date: 08/21/2023 ; Life Cycle Status: Active ; ResponsibleProvider: Raquel Grijalva MD; Vocabulary: SNOMED CT Snoring (SNOMED CT :229128830 ) Name of Problem: Snoring ; Recorder: aJy Martinez MD; Confirmation: Confirmed ; Classification: Medical ; Code: [id number] ; Contributor System: WAY SystemsChart ; Last Updated: 05/14/2019 08:41 CDT ; Life Cycle Date: 05/14/2019 ; Life Cycle Status: Active ; Responsible Provider: Jay Martinez MD; V ocabulary: SNOMED CT Procedure History Procedure History Reviewed : Yes Pratibha Clay RN - 12/28/2023 10:40 HEAD BANQUET WAITER/WAITRESS - Procedure History (As Of: 12/28/2023 10:42 HEAD BANQUET WAITER/WAITRESS) Anesthesia Minutes: 0 ; Procedure Name: bilateral shoulder surgeries ; Procedure Minutes: 0 Anesthesia Minutes: 0 ; Procedure Name: neck surgery ; Procedure Minutes: 0 Anesthesia Minutes: 0 ; Procedure Name: cholecystectomy ; Procedure Minutes: 0 Anesthesia Minutes: 0 ; Procedure Name: bilateral knee surgeries ; Procedure Minutes: 0 Anesthesia Minutes: 0 ; Procedure Name: REMOVAL OF THYROID ; Procedure Minutes: 0 Procedure Dt/Tm: 1999 ; Anesthesia Minutes: 0 ; Procedure Name: Hemorrhoid operation ; Procedure Minutes: 0 Procedure Dt/Tm: 2007 ; Anesthesia Minutes: 0 ; Procedure Name: Spinal fusion ; Procedure Minutes: 0 Procedure Dt/Tm: 2021 ; Anesthesia Minutes: 0 ; Procedure Name: Cystectomy ; Procedure Minutes: 0 Procedure Dt/Tm: 2020 ; Anesthesia Minutes: 0 ; Procedure Name: Back care ; Procedure Minutes: 0 Procedure Dt/Tm: 2017 ; Anesthesia Minutes: 0 ; Procedure Name: Gallbladder operation ; Procedure Minutes: 0 Procedure Dt/Tm: 2008 ; Anesthesia Minutes: 0 ; Procedure Name: Kidney stone analysis ; Procedure Minutes: 0 Allergies Allergies Verified? : Yes Pratibha Clay Enriqueta RN - 12/28/2023 10:40 HEAD BANQUET WAITER/WAITRESS (As Of: 12/28/2023 10:42 HEAD BANQUET WAITER/WAITRESS) Allergies (Active) No Known Medication Allergies Estimated Onset Date: Unspecified ; Created By: Mera Cevallos CARRIER WASHER; Reaction Status: Active ; Category: Drug ; Substance: No Known Medication Allergies ; Type: Allergy ; Updated By: Mera Cevallos CARRIER WASHER; Reviewed Date: 11/22/2023 13:24 HEAD BANQUET WAITER/WAITRESS Medication List Medications Verified? : Yes Pratibha Clay Enriqueta RN - 12/28/2023 10:40 HEAD BANQUET WAITER/WAITRESS Medication List (As Of: 12/28/2023 10:42 HEAD BANQUET WAITER/WAITRESS) Prescription/Discharge Order amLODIPine : amLODIPine ; Status: Prescribed ; Ordered As Mnemonic: amLODIPine 10 mg oral tablet ; Simple Display Line: 10 mg, 1 tablet(s), Oral, daily, 90 tablet(s), 3 Refill(s) ; Ordering Provider: Raquel Grijalva MD; Catalog Code: amLODIPine ; Order Dt/Tm: 10/16/2023 12:38 HEAD BANQUET WAITER/WAITRESS metoprolol : metoprolol ; Status: Prescribed ; Ordered As Mnemonic: Metoprolol Succinate ER 25 mg oral tablet,extended release ; Simple Display Line: 25 mg, 1 tablet(s), Oral, daily, 30 tablet(s), 6 Refill(s) ; Ordering Provider: Raquel Grijalva MD; Catalog Code: metoprolol ; Order Dt/Tm: 09/14/2023 16:25 HEAD BANQUET WAITER/WAITRESS rosuvastatin : rosuvastatin ; Status: Prescribed ; Ordered As Mnemonic: rosuvastatin 20 mg oral tablet ; Simple Display Line: 20 mg, 1 tablet(s), Oral, qhs, for 90 day(s), 90 tablet(s), 3 Refill(s) ; Ordering Provider: Lg Johnson MD; Catalog Code: rosuvastatin ; Order Dt/Tm: 08/31/2023 11:41 CDT lisinopril : lisinopril ; Status: Prescribed ; Ordered As Mnemonic: lisinopril 40 mg oral tablet ; Simple Display Line: 40 mg, 1 tablet(s), Oral, daily, for 90 day(s), 90 tablet(s), 0 Refill(s) ; Ordering Provider: Raquel Grijalva MD; Catalog Code: lisinopril ; Order Dt/Tm: 08/23/2023 16:31 CDT Home Meds DULoxetine : DULoxetine ; Status: Documented ; Ordered As Mnemonic: DULoxetine 30 mg ora capsule ; Simple Display Line: 30 mg, 1 capsule(s), Oral, daily, 30 capsule(s), 0 Refill(s) ; Catalog Code: DULoxetine ; Order Dt/Tm: 10/16/2023 12:17 HEAD BANQUET WAITER/WAITRESS triamcinolone topical : triamcinolone topical ; Status: Documented ; Ordered As Mnemonic: triamcinolone 0.025% cream ; Simple Display Line: 1 Applic, Topical, tid, 15 gm ; Catalog Code: triamcinolone topical ; Order Dt/Tm: 10/16/2023 12:17 HEAD BANQUET WAITER/WAITRESS rOPINIRole : rOPINIRole ; Status: Documented ; Ordered As Mnemonic: rOPINIRole 0.25 mg oral tablet ; Simple Display Line: 0.25 mg, 1 tablet(s), Oral/Per Tube, bid, 0 Refill(s) ; Catalog Code: rOPINIRole ; Order Dt/Tm: 10/16/2023 12:16 HEAD BANQUET WAITER/WAITRESS magnesium oxide : magnesium oxide ; Status: Documented ; Ordered As Mnemonic: magnesium oxide ; Simple Display Line: daily, 0 Refill(s) ; Catalog Code: magnesium oxide ; Order Dt/Tm: 05/13/2019 15:33 CDT naproxen : naproxen ; Status: Documented ; Ordered As Mnemonic: Aleve 220 mg oral capsule ; Simple Display Line: 220 mg, 1 capsule(s), daily, 0 Refill(s) ; Catalog Code: naproxen ; Order Dt/Tm: 05/13/2019 15:33 CDT vitamin E : vitamin E ; Status: Documented ; Ordered As Mnemonic: vitamin E 400 intl units oral capsule ; Simple Display Line: 400 unit(s), 1 capsule(s), Oral, daily, 0 Refill(s) ; Catalog Code: vitamin E ; Order Dt/Tm: 05/13/2019 15:33 CDT cyanocobalamin : cyanocobalamin ; Status: Documented ; Ordered As Mnemonic: Vitamin B12 1000 mcg oral tablet ; Simple Display Line: mcg, tablet(s), 0 Refill(s) ; Catalog Code: cyanocobalamin ; Order Dt/Tm: 05/13/2019 15:32 CDT diphenhydrAMINE : diphenhydrAMINE ; Status: Documented ; Ordered As Mnemonic: Benadryl 25 mg oral tablet ; Simple Display Line: 25 mg, 1 tablet(s), bid, 0 Refill(s) ; Catalog Code: diphenhydrAMINE ; Order Dt/Tm: 05/13/2019 15:32 CDT aspirin : aspirin ; Status: Documented ; Ordered As Mnemonic: aspirin 81 mg oral enteric coated tablet ; Simple Display Line: 81 mg, 1 tablet(s), Oral, daily, 0 Refill(s) ; Catalog Code: aspirin ; Order Dt/Tm: 05/13/2019 15:31 CDT cholecalciferol : cholecalciferol ; Status: Documented ; Ordered As Mnemonic: cholecalciferol 5000 intl units oral capsule ; Simple Display Line: 5,000 unit(s), 1 capsule(s), daily, 0 Refill(s) ; Catalog Code: cholecalciferol ; Order Dt/Tm: 05/13/2019 15:31 CDT Senna : Senna ; Status: Documented ; Ordered As Mnemonic: Senna 8.6 mg oral tablet ; Simple Display Line: mg, tablet(s), qpm, 0 Refill(s) ; Catalog Code: senna ; Order Dt/Tm: 05/13/2019 15:31 CDT Calcium : Calcium ; Status: Documented ; Ordered As Mnemonic: Calcium ; Catalog Code: zzCalcium ; Order Dt/Tm: 05/13/2019 15:30 CDT multivitamin : multivitamin ; Status: Documented ; Ordered As Mnemonic: Multivitamin oral tablet ; Simple Display Line: 1 tablet(s), Oral, daily, 30 tablet(s), 0 Refill(s) ; Catalog Code: multivitamin ; Order Dt/Tm: 05/13/2019 15:30 CDT levothyroxine : levothyroxine ; Status: Documented ; Ordered As Mnemonic: Synthroid 150 mcg (0.15 mg) oral tablet; Simple Display Line: 150 mcg, 1 tablet(s), Oral, daily before breakfast, 30 tablet(s), 0 Refill(s) ; Ordering Provider: Dale Funes M.D.; Catalog Code: levothyroxine ; Order Dt/Tm: 05/13/2019 15:29 CDT metFORMIN : metFORMIN ; Status: Documented ; Ordered As Mnemonic: metFORMIN 500 mg oral tablet, extended release ; Simple Display Line: 1,000 mg, 2 tablet(s), bid, 0 Refill(s) ; Ordering Provider: Dale Funes M.D.; Catalog Code: metFORMIN ; Order Dt/Tm: 05/13/2019 15:29 CDT allopurinol : allopurinol ; Status: Documented ; Ordered As Mnemonic: allopurinol 300 mg oral tablet ; Simple Display Line: 300 mg, 1 tablet(s), Oral, daily, 30 tablet(s), 0 Refill(s) ; Ordering Provider: Dale Funes M.D.; Catalog Code: allopurinol ; Order Dt/Tm: 05/13/2019 15:29 CDT pantoprazole : pantoprazole ; Status: Documented ; Ordered As Mnemonic: pantoprazole 40 mg oral delayed release tablet ; Simple Display Line: 40 mg, 1 tablet(s), Oral, daily before breakfast, 30 tablet(s), 0 Refill(s) ; Ordering Provider: Dale Funes M.D.; Catalog Code: pantoprazole ; Order Dt/Tm: 05/13/2019 15:29 CDT ; Comment: DO NOT CRUSH Functional Sensory Devices Needed : Glasses Sensory Devices at Bedside : Glasses Medical Devices : None Radiology Testing Barriers/Precautions : Metal plates, pins, rods or screws, Other: Both knees Medical Devices/Radiology Barriers Verified : Yes Living Situation : Home independently Anticipated Discharge Needs : Home independently Pratibha Clay RN - 12/28/2023 10:40 HEAD BANQUET WAITER/WAITRESS Social Habits Social History Reviewed : Yes Pratibha Clay RN - 12/28/2023 10:40 HEAD BANQUET WAITER/WAITRESS Social History (As Of: 12/28/2023 10:42 HEAD BANQUET WAITER/WAITRESS) Tobacco: Former smoker, Smokeless Tobacco use: Never. No Cessation Counseling. Stopped age 46 Years. (Last Updated: 08/21/2023 11:30 CDT by Wilmer Wayne Stitch Cleaner) Alcohol: Current some day alcohol user, 1-2 times per month (Last Updated: 08/21/2023 11:27 CDT by Wilmer Wayne Stitch Cleaner) Substance Abuse: Never drug user (Last Updated: 08/21/2023 11:28 CDT by Wilmer Wayne Stitch Cleaner) Psychosocial Domestic Violence Screening : Patient does not have domestic violence concerns Current Danger to Self or Others : No Current treatment for Cancer on 7700 : No Little interest/pleasure in doing things? : No Feeling down, depressed, or hopeless? : No Have you wished you were ? : No Had thoughts of killing yourself? : No Ever attempted to kill yourself? : No Pratibha Clay RN - 12/28/2023 10:40 HEAD BANQUET WAITER/WAITRESS Advance Directive Advanced Directives : Yes Advance Directive Type : Living will, Medical durable power of tax attorney Medical Power of Pipefitter Helper Name : Norma [phone] Advance Directive Location : Family to bring in copy from home Pratibha Clay RN - 12/28/2023 10:40 HEAD BANQUET WAITER/WAITRESS TB Screen Previous Pneumococcal Vaccine? : Yes Flu Vaccine This Season? : Yes Pratibha Clay RN - 12/28/2023 10:40 HEAD BANQUET WAITER/WAITRESS Novel Coronavirus Assessment Novel Coronavirus Current Fever : No Novel Coronavirus Exposed COVID 14 days : No Pratibha Clay RN - 12/28/2023 10:40 HEAD BANQUET WAITER/WAITRESS * Event Display: Physician Order AMB * Event Display: ROI_Correspondence * Event Display: Patient Provided Clipboard Authored Date: [id number] Ambulatory Comprehensive Intake Ambulatory Comprehensive IntakeOriginating Source: PATIENTOriginating Author: LIBERTAD Randhawa Submission Date: May 11, 2019 5:03:29 PM PABLITOT LIBERTAD LORENZO : 1955 Sex: Male MRN(s): [id number] Ambulatory Comprehensive Intake Question Response Advance Directive No; Patient DECLINED additional information Advance Directive Date Location of Advance Directive Type of Advance Directive Patient has Court Appointed Guardian No Location of Court Appointed Guardian Documentation Legal Guardian Medical Power of Pipefitter Helper Name Patient Requests Counseling Regarding Advance Directives History of Falling in Last 3 Months, Including Since Admission No Impaired Judgment/Lack of Safety Awareness No Agitation No Impaired Gait, Shuffle, Wide Base, Unsteady Walk No Ever Experience Dizziness or Vertigo No Ever Wet or Soil Yourself on Way to Bathroom No Medical Devices None Launch [employer] [place] [employer] Card Other Launch [employer] [place] [employer] Details Radiology Testing Barriers/Precautions None Menstrual Status N/A Last Menstrual Period Previous LMP Date Last Menstrual Period Description Menarche Onset Menarche Frequency Menarche Length Menstrual Comments PAP result HPV Coping Stressors Emotional Support Available Yes Do You Receive Comfort From Spiritual Practices Yes Mandaeism Preference Non-anglican Spiritual Practice Comments Weight Change >10lbs No [...] voices No Marital or relationship problems No car framer awakenings No Chief Complaint Pain Present Yes actual or suspected pain Numeric Rating Pain Scale 6 Primary Pain Location Back - Lower Primary Pain Comments Neck and back pain caused by accident History and physical note * Greg Espinal MD: PERFORM, SIGN, VERIFY Event Display: History and Physical Authored Date: [id number] Patient: LIBERTAD LORENZO Age: 68 years Sex: Male : 1955 Associated Diagnoses: None Author: Greg Espinal MD Notes Consult requested by: Jazz Grijalva Md PCP: Dale Funes MD Reason for consult: VT History of Present Illness: The patient is a 68 year old with a history of CAD, HTN, DM2, HLD and hypothyroidism. He has a history of PVCs with a 4% PVC burden and some 3 episodes of NSVT. He feels tired all the time when he has PVC ECG from today with rVOT origin. Review of Systems: General: No weight loss or weight gain, energy level stable Skin: No rashes or eruptions, no bruising Lungs: No cough, shortness of breath, or wheezing Cardiac: See HPI GI: No nausea or vomiting, no abdominal pain or change in bowel habits : No dysuria, no hematuria Neurologic: No CVA/TIA symptoms All other ROS reviewed and are negative 10 point ROS was otherwise negative except for what was stated in the HPI. Physical Examination: General: Alert, cooperative, no distress HEENT: Normocephalic, without obvious abnormality, atraumatic. No JVD, No LAD Lungs: Clear to auscultation bilaterally. Heart: Regular rate and rhythm, S1, [id number], no murmur, click, rub or gallop. Abdomen: Soft, non-tender. Bowel sounds normal. No masses,No organomegaly. Extremities:Extremities normal, atraumatic, no cyanosis or edema. Pulses:2+ and symmetric all extremities. Skin:Skin color, texture, turgor normal. No rashes or lesions. Neurologic:Grossly non-focal Data Review: ECG: NSR with iRBBB and frequent PVC RVOT origin Echo: 08/30/23 CONCLUSIONS: 1. Technically difficult study, [...] aorta may be better visualizedon the current study. Holter CONCLUSIONS: 1. The underlying rhythm was [...] block and bundle branch block were noted. CMRI: IMPRESSION: 1. Normal left ventricular size and [...] if there is clinical concern for sarcoidosis. PET SUMMARY: 1. Myocardial Perfusion: normal 2. Global LV Function: normal 3. Myocardial glucose utilization: normal FINAL IMPRESSION: 1. There is no evidence of active myocardial inflammation. There is no evidence of underlying active cardiac sarcoidosis. 2. Normal rest perfusion. Normal left ventricular systolic function with LVEF 58%. Carotid Dopplers Conclusions: 1. Atherosclerotic changes as noted in the carotid segments above without evidence of hemodynamically significant stenosis. 2. Antegrade flow is noted in bilateral vertebral arteries. 3. Per image, the left internal carotid artery stenosis appears closer to 50%. 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 Patchy subendocardial enhancement of basal inferolateral wall 3. HTN Recommendations: 1. With regard to Frequent PVC, - I discussed PVC ablation based on the 2019 Expert Consensus on ablation of ventricular arrhythmias (2019 HRS/EHRA/APHRS/LAHRS Expert Consensus Statement on Catheter Ablation of Ventricular Arrhythmias. Heart Rhythm 2019;March 08:) Right and left outflow tracts are the most common sites of origin for idiopathic VAs in patients without structural heart disease. In patients with frequent and symptomatic PVCs originating from the right ventricular outflow tract in an otherwise normal heart, catheter ablation is recommended in preference to metoprolol or propafenone. In patients that are asymptomatic, ablation is only recommended if the burden of PVC has resulted in LV dysfunction or at increased risk for LV dysfunction. For patients who are clinical nonresponders to cardiac resynchronization therapy, with limited biventricular pacing due to frequent PVCs, successful PVC ablation is associated with improvement in heart failure class and a modest improvement in LVEF. Given this is RVOT PVC and symptomatic, I recommend ablation. I discussed at length with the patient the risks and benefits of the procedure. There is a 1% risk of life threatening complication. These include but are not limited to bleeding, vascular damage, damage to the normal conduction system necessitating a pacemaker, cardiac perforation, CVA, and .The patient states understanding these risks and wishes to continue. Travis Espinal MD, [facility] Clinical Cardiac Electrophysiology [facility] [Electronically Signed on 12/28/2023 08:08 AM HEAD BANQUET WAITER/WAITRESS] Greg Espinal MD Discharge summary * Greg Espinal MD: SIGN Greg Espinal MD: SIGN, SIGN, VERIFY Raquel Grijalva MD: REVIEW Event Display: Discharge Summary. Authored Date: Patient: LIBERTAD LORENZO Age: 68 years Sex: Male : 1955 Associated Diagnoses: None Author: Sushma Hurd SHOT LIGHTER Discharge Information Reason for Hospitalization: History per Dr. Espinal: The patient is a 68 year old with a history of CAD, HTN, DM2, HLD and hypothyroidism. He has a history of PVCs with a 4% PVC burden and some 3 episodes of NSVT. He feels tired all the time when he has PVC ECG from today with rVOT origin.. Hospital Course: Patient's Clinical Progress: The patient came into the EP lab electively under the direction of Dr. Espinal and underwent the following procedure: 1. EP study with left atrial recording - 54302 2. Intracardiac ultrasound - 83694 3. Ablation of VT/PVC - 93281 The patient tolerated the procedure well. The patient was deemed stable for discharge. All of the patient's questions were answered. All instructions were given both orally and in writing. The patient expressed understanding. . Discharge Summary Information: Admit Date: Admitted 12/28/2023. Discharge Date: Discharged 12/29/2023. Primary Care Physician: Dale Funes M.D.. Admitting diagnosis: 1. VT 2. PVC. Discharge diagnosis: 1. VT 2. PVC. Physical Examination General: Within normal limits. HENT: Normocephalic, Normal hearing. Eye: Normal conjunctiva. Neck: Supple. Respiratory: Respirations are non-labored, Symmetrical chest wall expansion. Cardiovascular: Normal rate, Regular rhythm. Gastrointestinal: Non-distended. Vitals Temp BP Pulse RR SpO2 FIO2 Date Wt(kg) Wt(lb) 12/28 10:14 ---- 119/58 --- -- --- --- 138.1 304 12/28 08:46 36.3 119/58 --- 16 96 RA 12/28 08:11 36 132/60 68 18 96 RA 12/28 03:27 36.3 119/58 --- 16 96 RA 19:44 36.8 103/57 --- -- 94 RA 24 Hr Tmax: 36.9 at 17:50 36 Hr Tmax: 36.9 at 17:50 Vital Signs are the last 5 in the past 48 hours. Weights display the last 5 within 7 days. Initial Wt: 138.1 kg 304 lb Measurements from flowsheet : Measurements 12/28/2023 10:45 HEAD BANQUET WAITER/WAITRESS Height 185.4 cm Weight 138.1 kg Musculoskeletal No swelling. Integumentary: Warm, Dry, No rash. Neurologic: Alert, Oriented, No focal deficits. Cognition and Speech: Oriented, Speech clear and coherent. Psychiatric: Cooperative, Appropriate mood & affect. Results Review General results: No qualifying data available . Hospital Course Significant Findings: Labs: Laboratory 12/28/2023 14:43 HEAD BANQUET WAITER/WAITRESS Glucose (POC) 138 mg/dL H 12/28/2023 14:16 HEAD BANQUET WAITER/WAITRESS ACT Plus 130 sec 12/28/2023 13:59 HEAD BANQUET WAITER/WAITRESS ACT Plus 234 sec H 12/28/2023 13:48 HEAD BANQUET WAITER/WAITRESS ACT Plus 240 sec H 12/28/2023 12:50 HEAD BANQUET WAITER/WAITRESS ABO/Rh A POS Antibody Screen Negative Crossmatch IS Compatible . Procedures Performed/Treatment Rendered: 1. EP study with left atrial recording - 88894 2. Intracardiac ultrasound - 06243 3. Ablation of VT/PVC - 73774 . Discharge Plan Condition on Discharge: Stable. Discharge Plan from Discharge Orders: Discharge Activity Restrictions - Ordered -- Activity post discharge: Advance to a full activity level as tolerated, Special Instructions: Donot lift more than 10 lbs for one week. Do not soak in water for 2 days. Ok to remove dressings andshower today Discharge Diet Instruction - Ordered -- Resume diet as previously prescribed. Discharge Patient to - Ordered -- Home w/Physician Follow-up Follow-up instructions post Discharge - Ordered -- Follow up Instructions: Follow up with Dr. Espinal in 8 weeks, Special Instructions: Pt to call office: [phone]. Disposition: Home, Self care. Discharge Medications: Discharge Medications Calcium DULoxetine: 30 mg,1 capsule(s),Oral,daily Senna: mg,tablet(s),qpm allopurinol: 300 mg,1 tablet(s),Oral,daily amLODIPine: 5 mg,1 tablet(s),Oral,daily aspirin: 81 mg,1 tablet(s),Oral,daily cholecalciferol: 5,000 unit(s),1 capsule(s),daily cyanocobalamin: mcg,tablet(s) diphenhydrAMINE: 25 mg,1 tablet(s),bid levothyroxine: 150 mcg,1 tablet(s),Oral,daily before breakfast lisinopril: 40 mg,1 tablet(s),Oral,daily metFORMIN: 1,000 mg,2 tablet(s),bid metoprolol: 25 mg,1 tablet(s),Oral,daily multivitamin: 1 tablet(s),Oral,daily naproxen: 220 mg,1 capsule(s),daily pantoprazole: 40 mg,1 tablet(s),Oral,daily before breakfast rOPINIRole: 0.25 mg,1 tablet(s),Oral/Per Tube,bid rosuvastatin: 20 mg,1 tablet(s),Oral,qhs triamcinolone topical: 1 Applic,Topical,tid vitamin E: 400 unit(s),1 capsule(s),Oral,daily . Diet on Discharge: Cardiac (heart healthy) diet. Activity Instructions: See discharge instructions.. Plan for Followup Care: See discharge instructions.. Other Instructions: You can take the dressings off and shower today. No soaking in water (bathtub, hot tub, pool, etc.)for two days. Do not lift more than 10 pounds for 1 week. No driving for two days. Please call the office at [phone] if you develop a fever greater than 100.4, chills, increased swelling, redness, or drainage from groin sites. Notify us immediately if you develop abrupt dizziness, chest pain, pain with swallowing, difficulty swallowing, or shortness of breath. Follow up in the office with Dr. Espinal in 8 weeks.. [Electronically Signed on 12/29/2023 12:14 PM HEAD BANQUET WAITER/WAITRESS] Sushma Hurd NP [Electronically Signed on 12/29/2023 12:31 PM HEAD BANQUET WAITER/WAITRESS] Greg Espinal MD CC: Mireille Magallanes MD Surgical operation note * Greg Espinal MD: PERFORM, SIGN, VERIFY Event Display: Operative Report Authored Date: [id number] Patient: LIBERTAD LORENZO Age: 68 years Sex: Male : 1955 Associated Diagnoses: None Author: Greg Espinal MD Notes EP Study Report Preoperative Diagnosis: 1. VT 2. PVC Post operative Diagnosis: 1. VT 2. PVC Cleaner Signs: Travis Espinal M.D. Procedure Performed 1. EP study with left atrial recording - 77585 2. Intracardiac ultrasound - 18133 3. Ablation of VT/PVC - 13376 Blood Loss: <10cc Complications: None Anesthesia: see nursing notes for drug totals Operative Course: After discussing the risks, benefits and alternatives of the procedure, the patient agreed to proceed with the procedure. Conscious sedation was utilized. Please see nursing notes for drug totals. Access was obtained by modified Seldinger technique. An eight Canadian sheath and seven czech sheath were placed in the right femoral vein. An eight Canadian Sheath was placed in the right femoral artery. Under 3D mapping guidance, all catheters were placed including a CS catheter in the CS, ICE catheterin RA and a ablation catheter in area of interest. The patient presented in normal sinus rhythm with frequent PVCs. Access to the RFA with 8FR by modified Seldinger technique was utilized. Heparin given IV. Programmed electrical stimulation was performed. Activation mapping of the RVOT, aortic cusps and distal CS near take off of Left main and LAD/LCX bifurcation. Pacemapping was performed at theearliest activation sites. The earliest site was noted near the junction of RCC and LCC. Unipolar mapping confirmed the earliest site as 30 ms presystolic. Further mapping was performed on and off isoproterenol. Finally a 3.5 mm Biosense Morrison Contact Force catheter was introduced at the area of earliest activation. Multiple 20 Watt applications of 30-60 sec duration were delivered with no evidence of hemodynamic compromise. This eliminated further PVC from this focus. A 30 minute wait time was allowed with no further activity. Post ablation PES included atrial and ventricular pacing and extra-atrial stimuli. EPS as below. RR 826 ms MI 140 ms QRS 140 ms QT 418 ms AH 80 ms HV 40 ms Fluoro: 0 min RF: 4 min 52 sec The patient was given Heparin during the case and antibiotics preoperatively. Groin exam revealed no hematoma at conclusion. Sheaths were pulled after an ACT of <140 was documented. All closed with perclose. Note: the RFA was imaged with contrast at 20 degree GRIJALVA demonstrating entry above bifurcation. Conclusion: 1. Successful ablation of PVC 2. The patient should follow-up in 8 weeks. 3. No heavy lifting for a week 4. Bedrest 3 hours 5. DC in AM Mason Teddy, MD [Electronically Signed on 12/28/2023 02:45 PM HEAD BANQUET WAITER/WAITRESS] Greg Espinal MD Cardiology * Event Display: Telemetry, Paper * Event Display: Telemetry, Paper Hospital Summary note * Alexia Castro RN Care Manager: PERFORM Event Display: Inpatient Patient Summary Authored Date: Thank you for choosing [facility]???s for your health care. Routine checkups and screenings are an important part of staying healthy. [facility]???s entire network of care is open, safe and ready to provide you with the very best patient-focused care. LIBERTAD LORENZO :1955 Visit Date:12/28/2023 Inpatient Discharge Instructions [facility] would like to thank you for allowing us to assist you with the healthcare needs. The following information includes patient education materials and information regarding your injury/illness. Our entire staff strives to provide a very good experience for our patients and their families. You may receive, by mail, a survey about your experience with us at [facility].PLEASE ENSURE YOU FOLLOW-UP PER THE INSTRUCTIONS BELOW. Location Information ?[facility] [facility] ?? Your Care Team Admitting Physician - Greg Espinal MD Attending Physician - Greg Espinal MD Primary Care Physician - Dale Funes M.D. Referring Physician - Dale Funes M.D. Reason for Your Visit Encounter for other specified special examinations Your Diagnosis Encounter for other specified special examinations Frequent PVCs Discharge Orders Discharge Instructions ?Discharge Activity Restrictions?Activity Level post Discharge?Advanceto a full activity level as tolerated ?Discharge Activity Restrictions?Special Instructions?Do notlift more than 10 lbs for one week. Do not soak in water for 2 days. Ok to remove dressings and shower today ?Discharge Patient to?Discharge Disposition?Home w/Physician Follow-up ?Follow-up instructions post Discharge?Follow-up Instuctions post Discharge?Follow up with Dr. Espinal in 8 weeks ?Follow-up instructions post Discharge?Special Instructions??Pt to call office: [phone] ?Discharge Diet Instruction?Diet post Discharge?Resume diet as previously prescribed. ?? Instructions From Your Doctor Nursing Discharge Instructions Inpatient/Observation Instructions: After you leave the hospital, you may call the Nursing Unit within 24 hours of your discharge if you have any questions about these instructions. ??If any medical problems occur or your symptoms get worse, call your doctor immediately. Nursing Unit Patient Home Medications Returned: No home medications No qualifying data available. Tests Pending Anesthesia US in OR Procedures History ???Cystectomy (2021)???Back care (2020)???Gallbladder operation (2018)???Kidney stone analysis (2008)???Spinal fusion (2007)???Hemorrhoid operation (1999)???bilateral knee surgeries???bilateral shoulder surgeries???cholecystectomy???neck surgery???REMOVAL OF THYROID Discharge Vitals Systolic Blood Pressure: 119 mm Hg (12/29/23 10:14:00) Diastolic Blood Pressure:??58 mm Hg??Low (12/29/23 10:14:00) What to do next Scheduled Follow-Up Appointments Chato Ty. 24, 2024 12:00 PM CDT ?? With: Raquel Grijalva MD Where: [facility] [address] [phone] You Need to Schedule the Following Appointments Follow Up with??Greg Espinal When?? Why: You can take the dressings off and shower today. No soaking in water (bathtub, hot tub, pool, etc.) for two days. Do not lift more than 10 pounds for 1 week. No driving for two days. Please callthe office at [phone] if you develop a fever greater than 100.4, chills, increased swelling, redness, or drainage from groin sites. Notify us immediately if you develop abrupt dizziness, chest pain, pain with swallowing, difficulty swallowing, or shortness of breath. Follow up in the office with Dr. Espinal in 8 weeks. Where: [address] [place] [address]- Business (1) The Following Equipment/Services/Treatments Have Been Arranged For You No qualifying data available. Medications [facility] provided you with a completed list of medications post discharge, share the list of your current medications with your primary care physician; update the information when medications are discontinued, doses are changed, or new medications (including over the counter products) are added; and carry medication information at all times in the event of emergency situations. What How Much When Instructions Side Effects Next Dose Unchanged allopurinol (allopurinol 300 mg oral tablet) 1 tablet(s) By mouth Daily Unchanged amLODIPine (amLODIPine 5 mg oral tablet) 1 tablet(s) By mouth Daily Unchanged aspirin (aspirin 81 mg oral enteric coated tablet) 1 tablet(s) By mouth Daily Unchanged Calcium Unchanged cholecalciferol (cholecalciferol 5000 intl units oral capsule) 1 capsule(s) Daily Unchanged cyanocobalamin (Vitamin B12 1000 mcg oral tablet) Unchanged diphenhydrAMINE (Benadryl 25 mg oral tablet) 1 tablet(s) 2 times a day Unchanged DULoxetine (DULoxetine 30 mg ora capsule) 1 capsule(s) By mouth Daily Unchanged levothyroxine (Synthroid 150 mcg (0.15 mg) oral tablet) 1 tablet(s) By mouth Daily before breakfast Unchanged lisinopril (lisinopril 40 mg oral tablet) 1 tablet(s) By mouth Daily Unchanged metFORMIN (metFORMIN 500 mg oral tablet, extended release) 2 tablet(s) 2 times a day Unchanged metoprolol (Metoprolol Succinate ER 25 mg oral tablet, extended release) 1 tablet(s) By mouth Daily Unchanged multivitamin (Multivitamin oral tablet) 1 tablet(s) By mouth Daily Unchanged naproxen (Aleve 220 mg oral capsule) 1 capsule(s) Daily Unchanged pantoprazole (pantoprazole 40 mg oral delayed release tablet) 1 tablet(s) By mouth Daily before breakfast DO NOT CRUSH Unchanged rOPINIRole (rOPINIRole 0.25 mg oral tablet) 1 tablet(s) Oral/Per Tube 2 times a day Unchanged rosuvastatin (rosuvastatin 20 mg oral tablet) 1 tablet(s) By mouth Every evening at bedtime Unchanged Senna (Senna 8.6 mg oral tablet) Once a day (in the evening) Unchanged triamcinolone topical (triamcinolone 0.025% cream) 1 Application Topical 3 times a day Unchanged vitamin E (vitamin E 400 intl units oral capsule) 1 capsule(s) By mouth Daily Immunizations This Visit Allergies No Known Medication Allergies Problems Ongoing Abnormal stress test Carotid bruit Chest pain Elevated coronary artery calcium score Ex-smoker HLD (hyperlipidemia) Mild HTN Obesity Pre-operative exam PVCs (premature ventricular contractions) Snoring PatientStated Former smoker Historical No qualifying data Medication Information ?? Education Materials About Arrhythmias Electrical impulses cause the normal heart to beat 60 to 100 times a minute while at rest. These impulses come from a natural pacemaker called the sinus node. It is, ??inside the right upper heart chamber. Electrical impulses travel throughout the upper heart chambers (the atria) before reaching the bottom muscle chambers ((the ventricles) through an electrical connection called the AV node. Eachimpulse causes the heart muscle to contract. This causes the blood to flow through the heart and out to the tissues and organs of your body. An arrhythmia is a change from the normal speed or pattern of these electrical impulses. This can cause the heart to beat too fast (tachycardia), too slow (bradycardia), or in an unsteady pattern (irregular rhythm). Symptoms of arrhythmias Different people experience arrhythmias differently. And different arrhythmias can cause different symptoms. Sometimes you may not have symptoms, but just notice a change in your pulse. Symptoms can include: ???Fluttering feeling in the chest ???Shortness of breath ???Chest pain or pressure ???Neck fullness ???Lightheadedness or dizziness ???Fainting or almost fainting ???Palpitations. This is the sense that your heart is fluttering or beating fast or hard or irregularly. ???Tiredness, fatigue, or weakness ???Cardiac arrest, and , in serious arrhythmias Causes of arrhythmias Arrhythmias are most often caused by heart disease, such as: ???Coronary artery disease ( blocked arteries ) ???Heart valve disease ???Enlarged heart ???High blood pressure ???Heart failure Other causes of??arrhythmia include: ???Certain medicines such as asthma inhalers and decongestants ???Some herbal supplements ???Cardiac stimulant drugs such as cocaine, amphetamine, and diet pills, and certain decongestant cold medicines, caffeine, and nicotine ???Heavy use of alcohol ???Anxiety and panic disorder ???Thyroid disease ???Anemia ???Diabetes ???Sleep apnea ???Obesity ???Congenital heart disease ???Cardiac genetic diseases ???Electrolyte imbalance. Electrolytes are substances that help regulate normal heartbeat., High orlow levels of certain electrolytes such as potassium or magnesium may affect the heartbeat and contribute to arrhythmia. Arrhythmias can often be prevented. The cause and type of arrhythmia determines the best treatment.Sometimes your doctor may want to monitor your heart rate over a 24-hour period or longer. This canhelp find the cause of your arrhythmia and find the best treatment. This can be done with a Holter monitor. This is??a portable electrocardiogram (ECG) recording device attached by wires to your chest. Or you may get an event monitor, which you can place over the skin in front of your heart to record heart rhythms. You can carry this with you as you go about your routine activities during the monitoring period. Implantable loop recorders may also be used to monitor the heart rhythm for up to 3 years. This miniature device is placed underneath the skin over the heart. Home care These guidelines will help you care for yourself at home: ???Stay away from cardiac stimulants such as cocaine, amphetamine, diet pills, certain decongestantcold medicines, caffeine, and nicotine. ???If you smoke, stop smoking. Contact your doctor or a local stop-smoking program for help. ???Tell your doctor about any prescription, pong-spj-rceayxa, or herbal medicines you take. These may be affecting your heart rhythm. Follow-up care Follow up with your healthcare provider, or as advised. If a Holter monitor has been recommended, contact the field marketing specialist??you have been referred to??as soon as you can??picking tech the device. Other outpatient tests may also be arranged for you at that time. Call 911 This is the fastest and safest way to get to the emergency department. The paramedics can also start treatment on the way to the hospital, if needed. Don't??wait until your symptoms are severe to call 911. Other reasons to call 911 besides chest pain include: ???Chest pain radiating to the shoulder, arm, neck, or back. ???Shortness of breath ???Feeling lightheaded, faint, or dizzy ???Unexplained fainting ???Rapid heart beat ???Slower than usual heart rate compared to your normal ???Very irregular heartbeat ???Chest pain (angina) with weakness, dizziness, heavy sweating, nausea, or vomiting ???Extreme drowsiness, or confusion ???Weakness of an arm or leg or one side of the face ???Trouble with speech or vision When to seek medical advice Remember, things are not always like they are on TV. Sometimes it is not so obvious. You may only feel weak or just not right. If it is not clear or if you have any doubt, call for advice. ???Seek help for chest pain, or if something feels different from usual, even if your symptoms are mild. ???Don't drive yourself. Have someone else drive. If no one can drive you, call 911. ???If your doctor has given you medicines to take when you have symptoms, take them, but don't delay getting help while trying to find them. ?? [id number] The [employer]. All rights reserved. This information is not intended as a substitute for professional medical care. Always follow your healthcare professional's instructions. Patient Portal Information [employer] is a secure online tool where you can access your personal health records, test results, visit summaries or request follow up appointments. The portal can be accessed on the hospital website [email or web address] where you can self-enroll if you did not do so on registration. If you need assistance logging in, please call . For questions regarding medications or other healthconcerns after discharge, please contact your physician???s office. [facility]:[phone] Location:[facility] Registration Date and Time:12/28/2023 10:16 HEAD BANQUET WAITER/WAITRESS Primary Care Physician: Dale Funes M.D., Attending Physician: Greg Espinal MD, Designated Caregiver: I have received the above patient education materials/instructions and have verbalized understanding. Patient/Parachute Inspector Signature: Date/Time: Designated Caregiver Signature: Date/Time: Unable to contact Designated Caregiver upon discharge. Provider Signature: Date/Time: Final Medication List We have provided this final list of active medications as a courtesy so that you can easily update your home records and provide to your physician(s). These are the only medications that you should be taking. Please review carefully and contact your doctor prior to taking any medications NOT on this list. Unchanged allopurinol (allopurinol 300 mg oral tablet)1 tablet(s) By mouth daily. amLODIPine (amLODIPine 5 mg oral tablet)1 tablet(s) By mouth daily. aspirin (aspirin 81 mg oral enteric coated tablet)1 tablet(s) By mouth daily. Calcium cholecalciferol (cholecalciferol 5000 intl units oral capsule)1 capsule(s) daily. cyanocobalamin (Vitamin B12 1000 mcg oral tablet) diphenhydrAMINE (Benadryl 25 mg oral tablet)1 tablet(s) 2 times a day. DULoxetine (DULoxetine 30 mg ora capsule)1 capsule(s) By mouth daily. levothyroxine (Synthroid 150 mcg (0.15 mg) oral tablet)1 tablet(s) By mouth daily before breakfast. lisinopril (lisinopril 40 mg oral tablet)1 tablet(s) By mouth daily. metFORMIN (metFORMIN 500 mg oral tablet, extended release)2 tablet(s) 2 times a day. metoprolol (Metoprolol Succinate ER 25 mg oral tablet, extended release)1 tablet(s) By mouth daily. multivitamin (Multivitamin oral tablet)1 tablet(s) By mouth daily. naproxen (Aleve 220 mg oral capsule)1 capsule(s) daily. pantoprazole (pantoprazole 40 mg oral delayed release tablet)1 tablet(s) By mouth daily before breakfast. rOPINIRole (rOPINIRole 0.25 mg oral tablet)1 tablet(s) Oral/Per Tube 2 times a day. rosuvastatin (rosuvastatin 20 mg oral tablet)1 tablet(s) By mouth every evening at bedtime. Senna (Senna 8.6 mg oral tablet)once a day (in the evening). triamcinolone topical (triamcinolone 0.025% cream)1 Application Topical 3 times a day. vitamin E (vitamin E 400 intl units oral capsule)1 capsule(s) By mouth daily. Anesthesia records * Event Display: Anesthesia Record Authored Date: Patient Care team information Care Team Personnel Name: Dale Funes M.D. Position: [facility] FAX ONLY - MD NOT ON STAFF Member Role: Primary Care Physician Address: Address: [address] [place] [address]- Name: Raquel Grijalva MD Position: Physician - Cardiology Member Role: Toy Maker Address: Address: [address] [place] [address] Building [address] Name: Lg Johnson MD Position: Physician - Cardiology Member Role: Specialist Physician Address: Address: [address] [place] [address] [address] Name: Nora Grimes DIRECTOR OF STRATEGIC SALES Position: AMB SHOT LIGHTER/PA Member Role: Nurse Practitioner Address: Address: [address] [place] [address] [address] [place] [address] [place] Name: Sushma Hurd SHOT LIGHTER Position: AMB SHOT LIGHTER/PA Member Role: Nurse Practitioner Address: Address: [address] [facility] [address] [place] [address] [place] Name: Greg Espinal MD Position: Physician - Electrophysiology Med Service: Deputy Chief Counsel Discovery Guide Role: Ordering Physician Address: Address: [address] [facility] [place] [address] Care Team Related Persons Name: TAY LORENZO Name: SEAN LORENZO Address: home [address] [facility], [id number]
--- OUTSIDE RECORDS SUMMARY | 2024-11-03 20:14 | XMS_ITS | Encounter Summary ---
Author Organization [facility] Healthcare Address [address] [place] [address] Care Team Providers Care Ply Cutter Name Role Phone Dale Funes MD Unavailable [phone] Dale Funes MD Primary Care Provider [phone] Reason for Visit * Auth/Cert (Routine) Specialty Diagnoses / Procedures Referred By Contac t Referred To Contact Diagnoses Other diseases of stomach and duodenum Other diseases of stomach and duodenum [K31.89] Procedures [place] EDG US EXAM SURGICAL ALTER STOM DUODENUM/JEJUNUM EUS SC/OA/Interventional Referral ID Status Reason Start Date Expiration Date Visits Re quested Visits Authorized [id number] 1 1 Encounter Details Date Type Department Care Team (Latest Contact Info) Description 03/10/2023 6:59 AM CDT - 03/10/2023 9:30 AM CDT Hospital Encounter [facility] [address] [facility] [address] [place] [address] Rosario Bravo MD [address] 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[employer] Gender Identity Not on file Sexual Orientation [...] Mass Index 38.26 03/10/2023 7:29 AM CDT documented in this encounter Medications at Time of Discharge allopurinol (ZYLOPRIM) 300 mg tablet Take 1 tablet (300 mg total) by mouth daily 3 9 aspirin 81 mg enteric coated tablet Take 1 tablet (81 mg total) by mouth daily calcium carbonate ([id number]) 1,250 MG (500 mg of elemental calcium) tablet Take by mouth daily cholecalciferol (VITAMIN D-3) 50,000 unit capsule [id number] UNIT ORALLY WEEKLY 3 cyclobenzaprine (FLEXERIL) 10 mg tablet TAKE 1 TABLET BY MOUTH AT BEDTIME NEEDED FOR SPASM 0 9 diphenhydrAMINE (BENADRYL) 25 mg capsule Take 25 mg by mouth daily DULoxetine DR (CYMBALTA) 30 mg capsule Take by mouth daily 3 ergocalciferol (VITAMIN D) 50,000 unit capsule Take 50,000 Units by mouth once a week levothyroxine (SYNTHROID) 150 mcg tablet TAKE 1 TABLET BY ORAL ROUTE EVERY MORNING FOR HYPOTHYROIDISM 3 9 lisinopriL (PRINIVIL,ZESTRIL) 40 mg tablet Take 1 tablet (40 mg total) by mouth daily 3 meloxicam (MOBIC) 7.5 mg tablet TAKE 1 TABLET BY MOUTH TWICE A DAY NEEDED FOR PAIN 0 9 metFORMIN XR (GLUCOPHAGE XR) 500 mg 24 hr tablet TAKE TWO TABLETS BY MOUTH TWO TIMES A DAY WITH MEALS 3 9 methylPREDNISolone (Medrol, Heriberto,) 4 mg DosepackIndications: Acute nasopharyngitis follow package directions 1 packet 1 multivitamin tablet Take by mouth pantoprazole DR (PROTONIX) 40 mg EC tablet Take 1 tablet (40 mg total) by mouth daily 3 9 senna-docusate (PERICOLACE) 8.6-50 mg Take by mouth daily simvastatin (ZOCOR) 20 mg tablet Take 1 tablet (20 mg total) by mouth every evening 3 9 traMADoL (ULTRAM) 50 mg tablet TAKE 1 TABLET BY MOUTH EVERY 6 HOURS NEEDED FOR PAIN TAKE WITH ACETAMINOPHEN 325MG 3 vitamin E (vitamin E) 400 unit capsule 1 capsule (400 Units total) daily documented as of this encounter Discharge Disposition Disposition Code Departure Means Destination Comment s Discharge to home or self care documented in this encounter H&P Notes * Early, Rosario Mcdowell MD - 03/10/2023 7:48 AM CDT Pre Endoscopy History and Physical Libertad Lorenzo is a 67 y.o. male who is here for Procedure(s): EUS SC/OA/Interventional The indication(s) for the procedure(s): antral nodule. Past Medical History: Diagnosis Date Arthritis Asthma Diabetes mellitus (HCC) GERD (gastroesophageal reflux disease) Gout Hypercholesteremia Hypertension Hypothyroidism Injury of neck Neck injury - (Added by TW Conv) Kidney stone Personal history of other diseases of the circulatory system History of hypertension - (Added by TW Conv) Personal history of other diseases of the digestive system History of gastroesophageal reflux (GERD) - (Added by Conv) Personal history of other diseases of the respiratory system History of asthma - (Added by Conv) Personal history of other endocrine, nutritional and metabolic disease History of diabetes mellitus - (Added by Conv) Personal history of urinary calculi History of renal calculi - (Added by TW Conv) Thyroid disease Type 2 diabetes mellitus (HCC) Past Surgical History: Procedure Laterality Date BACK SURGERY CHOLECYSTECTOMY KNEE SURGERY Bilateral Knee Surgery - (Added by TW Conv) NECK SURGERY Neck Surgery - (Added by TW Conv) [place] ARTHRD ANT INTERBODY MIN DSC CRV BELOW C2 Cervical Vertebral Fusion - (Added by TW Conv) [place] RPR UMBILICAL HERNIA < 5 YRS REDUCIBLE Umbilical Hernia Repair - (Added by TW Conv) SHOULDER SURGERY Bilateral THYROIDECTOMY Social History Tobacco Use Smoking status: Former Smokeless tobacco: Never Substance and Sexual Activity Drug use: Never Sexual activity: None Alcohol Use: Not At Risk (03/10/2023) AUDIT-C Frequency of Alcohol Consumption: Monthly or less Average Number of Drinks: 1 or 2 Frequency of Binge Drinking: Never Family History Problem Relation Age of Onset Emphysema Father Family history of emphysema - (Added by Conv) Heart disease Mother Family history of cardiac disorder - (Added by Conv) Heart disease Other Family history of cardiac disorder - (Added by Conv) Hypertension Other Family history of hypertension - (Added by Conv) No Known Allergies Prior to Admission medications Medication Sig Start Date End Date Taking? Authorizing Provider allopurinol (ZYLOPRIM) 300 mg tablet Take 1 tablet (300 mg total) by mouth daily 06/17/19 Yes Chiqui Wynn MD aspirin 81 mg enteric coated tablet Take 1 tablet (81 mg total) by mouth daily Yes Chiqui Wynn MD calcium carbonate ([id number]) 1,250 MG (500 mg of elemental calcium) tablet Take by mouth daily Yes Chiqui Wynn MD cholecalciferol (VITAMIN D-3) 50,000 unit capsule [id number] UNIT ORALLY WEEKLY 12/18/22 Yes Chiqui Wynn MD DULoxetine DR (CYMBALTA) 30 mg capsule Take by mouth daily 02/19/23 Yes Chiqui Wynn MD levothyroxine (SYNTHROID) 150 mcg tablet TAKE 1 TABLET BY ORAL ROUTE EVERY MORNING FOR HYPOTHYROIDISM 06/14/19 Yes Chiqui Wynn MD lisinopriL (PRINIVIL,ZESTRIL) 40 mg tablet Take 1 tablet (40 mg total) by mouth daily 01/23/23 Yes Chiqui Wynn MD metFORMIN XR (GLUCOPHAGE XR) 500 mg 24 hr tablet TAKE TWO TABLETS BY MOUTH TWO TIMES A DAY WITH MEALS 06/11/19 Yes Chiqui Wynn MD multivitamin tablet Take by mouth Yes Chiqui Wynn MD pantoprazole DR (PROTONIX) 40 mg EC tablet Take 1 tablet (40 mg total) by mouth daily 06/11/19 Yes Chiqui Wynn MD senna-docusate (PERICOLACE) 8.6-50 mg Take by mouth daily Yes Chiqui Wynn MD simvastatin (ZOCOR) 20 mg tablet Take 1 tablet (20 mg total) by mouth every evening 06/11/19 Yes Chiqui Wynn MD vitamin E (vitamin E) 400 unit capsule 1 capsule (400 Units total) daily Yes Chiqui Wynn MD cyclobenzaprine (FLEXERIL) 10 mg tablet TAKE 1 TABLET BY MOUTH AT BEDTIME NEEDED FOR SPASM 07/12/19 Chiqui Wynn MD diphenhydrAMINE (BENADRYL) 25 mg capsule Take 25 mg by mouth daily Chiqui Wynn MD ergocalciferol (VITAMIN D) 50,000 unit capsule Take 50,000 Units by mouth once a week Chiqui Wynn MD meloxicam (MOBIC) 7.5 mg tablet TAKE 1 TABLET BY MOUTH TWICE A DAY NEEDED FOR PAIN 07/11/19 Chiqui Wynn MD methylPREDNISolone (Medrol, Heriberto,) 4 mg Dosepack follow package directions 10/14/21 Idania Richardson NP traMADoL (ULTRAM) 50 mg tablet TAKE 1 TABLET BY MOUTH EVERY 6 HOURS NEEDED FOR PAIN TAKE WITH ACETAMINOPHEN 325MG 01/25/23 Chiqui Wynn MD lisinopril-hydroCHLOROthiazide (ZESTORETIC) 20-12.5 mg per tablet Take 1 tablet by mouth daily 06/11/19 03/10/23 Chiqui Wynn MD Review of Systems A pertinent, focused review of systems was completed and negative, except as noted above. OBJECTIVE: Vitals: Vitals: 03/10/23 0729 BP: 149/95 Pulse: 77 Resp: 14 Temp: 36 ??C (96.8 ??F) TempSrc: Temporal SpO2: 95% Weight: 131.5 kg (290 lb) Height: 185.4 cm (6' 1 ) Physical Exam: Airway: No significant abnormality. Cardiac: No significant abnormality. Pulmonary: No significant abnormality. Neurological: No significant abnormality. Gastrointestinal: No significant abnormality. ASA Score: per Anesthesia Sedation/Anesthesia Plan: per Anesthesia The risks and complications of the procedure have been explained to the patient. Informed consent was signed. Impression and plan: Will proceed with the planned procedure for the reasons stated above. documented in this encounter Procedure Notes * Rosario Bravo MD - 03/10/2023 7:50 AM CDTAssociated Order(s): EUS GI ENDOSCOPY [facility] Patient Name: Libertad Lorenzo Procedure Date: 03/10/2023 7:50 AM Date of : 1955 Admit Type: Outpatient Age: 67 Gender: Male Attending MD: Rosario Bravo M.D. Room: [facility] ENDOSCOPY ROOM 9 Note Status: Finalized Procedure: Upper EUS Indications: Gastric deformity on endoscopy/Subepithelial tumor versus extrinsic compression. 67M referred for evaluation of antral nodule found on recent EGD. Referring MD: Sawyer Aguila M.D. Providers: Rosario Bravo M.D., Tristin Chiu M.D. Medicines: Monitored Anesthesia Care Complications: No immediate complications. Estimated Blood Loss: Estimated blood loss was minimal. Procedure: Pre-Anesthesia Assessment: - The risks and benefits of the procedure and the sedation options and risks were discussed with the patient. All questions were answered and informed consent was obtained. - Immediately prior to administration of medications, the patient was re-assessed for adequacy to receive sedatives. The risks, benefits and alternatives were discussed and informed consent was obtained. The Olympus radial endosonoscope [id number] was introduced through the mouth, and advanced to the duodenum for ultrasound examination from the esophagus, stomach and duodenum The upper EUS was accomplished without difficulty. The patient tolerated the procedure well. Findings: ENDOSONOGRAPHIC FINDING: : The esophagus, stomach and duodenum were visualized endosonographically. A nodular lesion was found in the antrum of the stomach. The lesion was isoechoic. Sonographically, the lesion appeared to originate from the deep mucosa (Layer 2). There was no evidence of invasion into or beyond the submucosal layer (layer 3). The lesion also measured 10 mm in diameter. The outer endosonographic borders were poorly defined. Non-specific pancreatic parenchymal changes were noted in the entire pancreas. These consisted of hyperechoic strands and lobularity. The pancreatic duct measured up to 3 mm in the head. There was no sign of significant endosonographic abnormality in the common bile duct. The maximum diameter of the duct was 7 mm. There was no sign of significant endosonographic abnormality in the visualized portion of the liver. There was no sign of significant endosonographic abnormality involving the celiac trunk. ENDOSCOPIC FINDING: : The Z-line was irregular (previously biopsied by referring provider) A single 10 mm mucosal papule (nodule) with no bleeding was found in the gastric antrum. The polyp was removed with a cold snare. Resection and retrieval were complete. To prevent bleeding after the polypectomy, two hemostatic clips were successfully placed (MR conditional). There was no bleeding at the end of the procedure. The examined duodenum was normal. Impression: EUS: - An intramural (subepithelial) lesion was found in the prepyloric region of the stomach. The lesion appeared to originate from within the deep mucosa (Layer 2). - Pancreatic parenchymal abnormalities consisting of hyperechoic strands and lobularity were noted in the entire pancreas. - There was no sign of significant pathology in the common bile duct. - There was no evidence of significant pathology in the visualized portion of the liver. - The celiac trunk was endosonographically normal. - Z-line irregular. - A single mucosal papule (nodule) found in the stomach. Complete removal was accomplished. Clips (MR conditional) were placed. - Normal examined duodenum. Recommendation: - Observe patient's clinical course. - We performed biopsies during your procedure today. If you do not receive a phone call from my office with your biopsy results in 7 days, please contact my office at [phone]. - Return to referring physician as previously scheduled. Attending Participation: I was present and participated during the entire procedure, including non-beth portions. Electronically signed by Rosario Bravo MD Rosario Bravo M.D. 03/10/2023 8:54:53 AM . Number of Addenda: 0 Note Initiated On: 03/10/2023 7:50 AM Recognized by the [employer] for promoting quality in endoscopy documented in this encounter Plan of Treatment Pending Results Name Type Priority Associated Diagnoses Date /Time US Endoscopy Endo Imaging Procedure IP Routine Other diseases of stomach and duodenum 03/10/2023 8:42 AM CDT documented as of this encounter Procedures Procedure Name Priority Date/Time Associated Diagnosis Comments US ENDOSCOPIC IP Routine 03/10/2023 8:42 AM CDT Other diseases of stomach and duodenum SURGICAL PATHOLOGY Routine 03/10/2023 8:31 AM CDT Other diseases of stomach and duodenum ENDO ADD ON ESOPHAGOGASTRODUODENOSCOPY REMOVAL SNARE 03/10/2023 8:01 AM CDT Other diseases of stomach and duodenum Special Needs EUS with me for antral nodule. Not urgent, no covid needed. EUS 03/10/2023 7:50 AM CDT POCT GLUCOSE DEVICE Routine 03/10/2023 7:25 AM CDT documented in this encounter Results * Surgical pathology (03/10/2023 8:31 AM CDT) Tissue (Polyp(s), colon/colorectal, esophageal, gastric) 03/10/2023 8:31 AM CDT Narrative PATHOLOGY [facility] - 03/14/2023 3:25 PM CDT EPIC results best viewed via link to PDF [facility] [place] [address] Note to Patients: This report may contain a detailed description of human tissue sent by a health care provider to the laboratory for pathologic evaluation. The content of this report is essential for diagnosis and may provide important critical findings. This information may be unfamiliar to patients to review without a medical professional present. It is advised that the patient review this report in the presence of a health care provider who can answer questions and explain the details. SURGICAL PATHOLOGY REPORT FINAL Patient Name: ?? LIBERTAD LORENZO Gender: ??M : ??1955 (Age: 67) Address: ??[address], [place] ??[address] Hospital #: ??[id number] Taken:03/10/2023 Received:03/10/2023 Reported: 03/14/2023 Patient Type: [facility] SDS ?? Service: Gastro Location: Physician(s): ??Rosario Bravo M.D. Dale Funes M.D. Sawyer Aguila M.D. Tristin Chiu M.D. Diagnosis: Stomach, antrum, nodule, cold snare biopsy: ? -Antral mucosa with foveolar hyperplasia, acute and chronic inflammation and reactive epithelial changes. ? -A Helicobacter pylori immunostain is negative. ? -Negative for intestinal metaplasia, dysplasia, or neoplasm. chxm/03/13/2023 13:49 By this signature, I attest that the above diagnosis is based upon my personal examination of the slides(and/or other material indicated in the diagnosis). Alphonso Byers MD, PHD Report Electronically Reviewed and Signed Out By ??Alphonso Byers MD, PHD 03/14/2023 15:25:56 Diagnosis Comment Multiple additional deeper tissue sections were examined. Microscopic Description and Comment: Microscopic examination substantiates the above cited diagnosis. History: The patient is a 67-year-old male presenting for other diseases of stomach and duodenum. ??Operative procedure: ??EUS SC/OA/interventional. ??Endo add on upper endoscopy removed with snare. Specimen(s) Received: A: Cold snare gastric antral nodule Gross Description: Received in formalin, labeled with the patient? ? s identifiers and cold snare gastric antral nodule ??and consists of one woods- pink polypoid fragment(s) of soft tissue measuring 1.0 cm in greatest dimension. ??The resection margin is inked blue and the specimen is trisected. ?Labeled A1. Jar 0. ?? elsw/03/10/2023 12:14 PA(s): Arleen Stewart By this signature, I attest that the above diagnosis is based upon my personal examination of the slides(and/or other material). Addenda/Procedures The performance characteristics of some immunohistochemical stains, fluorescence in-situ hybridization tests and immunophenotyping by flow cytometry cited in this report (if any) were determined by the Surgical Pathology and Flow Cytometry Departments at [facility] as part of an ongoing fiberglass quality technician program and in compliance with federally mandated regulations drawn from the Clinical Laboratory Improvement Act of 1988 (CLIA '88). ??Some of these tests rely on the use of analyte specific reagents and are subject to specific labeling requirements by the US Food and Drug Administration. ??Such diagnostic tests may only be performed in a facility that is certified by the Department of Health and Human Services as a high complexity laboratory under CLIA '88. ??The FDA has determined that such clearance or approval is not necessary. ??This test is used for clinical purposes. ??It should not be regarded as investigational or for research. ??Nevertheless, federal rules concerning the medical use of analyte specific reagents require that the following disclaimer be attached to the report: This test was developed and its performance characteristics determined by the Surgical Pathology and Flow Cytometry Departments of [facility]. ??It has not been cleared or approved by the U. S. Food and Drug Administration. IMAGES AND SCANNED DOCUMENTS, IF INCLUDED, ONLY VIEWABLE IN PDF VERSION OF REPORT us Rosario Bravo MD LAB PATHOLOGY ORDERABLES Final Result PATHOLOGY [facility] [address] Floor [place], [place] [phone] * EUS (03/10/2023 7:50 AM CDT) Anatomical Region Laterality Modality Other Narrative Procedure Note Rosario Bravo MD - 03/10/2023 7:50 AM CDT GI ENDOSCOPY [facility] Patient Name: Libertad Lorenzo Procedure Date: 03/10/2023 7:50 AM Date of : 1955 Admit Type: Outpatient Age: 67 Gender: Male Attending MD: Rosario Bravo M.D. Room: [facility] ENDOSCOPY ROOM 9 Note Status: Finalized Procedure: Upper EUS Indications: Gastric deformity on endoscopy/Subepithelial tumor versus extrinsic compression. 67M referred for evaluation of antral nodule found on recent EGD. Referring MD: Sawyer Aguila M.D. Providers: Rosario Bravo M.D., Tristin Chiu M.D. Medicines: Monitored Anesthesia Care Complications: No immediate complications. Estimated Blood Loss: Estimated blood loss was minimal. Procedure: Pre-Anesthesia Assessment: - The risks and benefits of the procedure and the sedation options and risks were discussed with the patient. All questions were answered and informed consent was obtained. - Immediately prior to administration ofmedications, the patient was re-assessed for adequacy to receive sedatives. The risks, benefits and alternatives were discussed and informed consent was obtained. The Olympusradial endosonoscope [id number] was introduced throughthe mouth, and advanced to the duodenum for ultrasound examination from the esophagus, stomach andduodenum The upper EUS was accomplished without difficulty.The patient tolerated the procedure well. Findings: ENDOSONOGRAPHIC FINDING: : The esophagus, stomach and duodenum were visualizedendosonographically. A nodular lesion was found in the antrum of the stomach. The lesionwas isoechoic. Sonographically, the lesion appeared to originate from the deep mucosa (Layer 2). There was no evidence of invasion into orbeyond the submucosal layer (layer 3). The lesion also measured 10 mm in diameter. The outer endosonographic borders were poorly defined. Non-specific pancreatic parenchymal changes were noted in the entire pancreas. These consisted of hyperechoic strands and lobularity. The pancreatic duct measured up to 3 mm in the head. There was no sign of significant endosonographic abnormality in the common bile duct. The maximum diameter of the duct was 7 mm. There was no sign of significant endosonographic abnormality in the visualized portion of the liver. There was no sign of significant endosonographic abnormalityinvolving the celiac trunk. ENDOSCOPIC FINDING: : The Z-line was irregular (previously biopsied by referringprovider) A single 10 mm mucosal papule (nodule) with no bleeding was found inthe gastric antrum. The polyp was removed with a cold snare. Resectionand retrieval were complete. To prevent bleeding after the polypectomy,two hemostatic clips were successfully placed (MR conditional). There wasno bleeding at the end of the procedure. The examined duodenum was normal. Impression: EUS: - An intramural (subepithelial) lesion was found in the prepyloric region of the stomach. The lesion appeared to originate from within the deep mucosa (Layer 2). - Pancreatic parenchymal abnormalities consistingof hyperechoic strands and lobularity were noted inthe entire pancreas. - There was no sign of significant pathology in the common bile duct. - There was no evidence of significant pathology in the visualized portion of the liver. - The celiac trunk was endosonographicallynormal. - Z-line irregular. - A single mucosal papule (nodule) found in the stomach. Complete removal was accomplished. Clips(MR conditional) were placed. - Normal examined duodenum. Recommendation: - Observe patient's clinical course. - We performed biopsies during your proceduretoday. If you do not receive a phone call from my officewith your biopsy results in 7 days, please contact my office at [phone]. - Return to referring physician as previously scheduled. Attending Participation: I was present and participated during the entire procedure, including non-beth portions. Electronically signed by Rosario Bravo MD Rosario Bravo M.D. 03/10/2023 8:54:53 AM . Number of Addenda: 0 Note Initiated On: 03/10/2023 7:50 AM Recognized by the [employer] for promoting quality in endoscopy Rosario Bravo MD ENDOSCOPY PROCEDURES Final Res ult * POCT glucose (03/10/2023 7:25 AM CDT) Glucose, POC 117 70 - 199 mg/dL PATEL NAVARRO Blood 03/10/2023 7:25 AM CDT 03/10/2023 7:25 AM CDT Rosario Bravo MD LAB POCT ORDERABLES - DEVICE F inal Result [facility] Department [place] [address] documented in this encounter Visit Diagnoses Diagnosis Other diseases of stomach and duodenum documented in this encounter Administered Medications Inactive Administered Medications - up to 3 most recent administrations Medication Order MAR Action Action Date Dose Rate Site ondansetron (ZOFRAN) injection 4 mg 4 mg, intravenous, Administer over 2 Minutes, Every 6 hours PRN, nausea, vomiting, Starting on Mon03/10/23 at 0716, Pre-Procedure (GI) sodium chloride 0.9% flush 0.5-20 mL 0.5-20 mL, intra-catheter, As needed, line care, Starting on Mon03/10/23 at 0716, Pre-Procedure (GI), Flush volume based on line type and size. Flush before and after each use. , Indications: FlushingIndications:Flushi ng sodium chloride 0.9% infusion 30 mL/hr, intravenous, Continuous, Starting on Mon03/10/23 at 0800, Pre-Procedure (GI) Rate/Dose Change 03/10/2023 8:10 AM CDT 200 mL/h r Rate/Dose Verify 03/10/2023 8:01 AM CDT 30 mL/h r New Bag 03/10/2023 7:32 AM CDT 30 mL/hr 30 mL/hr documented in this encounter Discontinued Medications Medication Sig Discontinue Reason Start Date End Da te lisinopril-hydroCHLOROth iazide (ZESTORETIC) 20-12.5 mg per tablet Take 1 tablet by mouth daily Alternate therapy 06/11/2019 03/10/2023 documented as of this encounter Historical Medications * This list may reflect changes made after this encounter. traMADoL (ULTRAM) 50 mg tablet TAKE 1 TABLET BY MOUTH EVERY 6 HOURS NEEDED FOR PAIN TAKE WITH ACETAMINOPHEN 325MG 01/25/[address] (CYMBALTA) 30 mg capsule Take by mouth daily 02/19/2023 cholecalciferol (VITAMIN D-3) 50,000 unit capsule [id number] UNIT ORALLY WEEKLY 12/18/2022 lisinopriL (PRINIVIL,ZESTRI L) 40 mg tablet Take 1 tablet (40 mg total) by mouth daily 01/23/2023 added in this encounter Active and Recently Administered Medications Times are shown in CDT. Continuous Medication Order 03/08/2023 03/09/202303/1003/10/2023 sodium chloride 0.9% infusion 30 mL/hr, intravenous, Continuous, Starting on Mon03/10/23 at 0800, Pre-Procedure (GI) 0732 (New Bag - Prov ider: Mukul Chavez RN)0801 (Rate/Dose Verify - Provider: Dayanna Whaley CRNA)0810 (Rate/Dose Change - Provider: Dayanna Whaley CRNA)1330 (Due: Stopped) PRN Medication Order 03/08/2023 03/09/2023 03/10/2023 ondansetron (ZOFRAN) injection 4 mg 4 mg, intravenous, Administer over 2 Minutes, Every 6 hours PRN, nausea, vomiting, Starting on Mon03/10/23 at 0716, Pre-Procedure (GI) simethicone (MYLICON) 40 mg in sterile water 240 mL irrigation solution (CANCELED) As needed, Starting on Mon03/10/23 at 0811, Intra-Op 0811 (Given - Provid er: Tristin Chiu MD) sodium chloride 0.9% flush 0.5-20 mL 0.5-20 mL, intra-catheter, As needed, line care, Starting on Mon03/10/23 at 0716, Pre-Procedure (GI), Flush volume based on line type and size. Flush before and after each use. , Indications: Flushing documented in this encounter Orders Medications Ordered That [place] ht Not Have Been Administered Count Last Ordered Date First Ordered Date ondansetron (ZOFRAN) injection 4 mg 1 03/10 simethicone (MYLICON) 40 mg in sterile water 240 mL irrigation solution 1 03/10/2023 sodium chloride 0.9% flush 0.5-20 mL 1 02/27 Discharge Count Last Ordered Date First Orde red Date DISCHARGE PATIENT 1 03/10/2023 documented in this encounter Care Teams Ply Cutter Relationship Specialty Start Date End Date Dale Funes MD [address] [address] PCP - General Family Medicine 03/07/23 Dale Funes MD [address] [address] 06/25/19 documented as of this encounter
--- OUTSIDE RECORDS SUMMARY | 2024-11-03 20:14 | XMS_ITS | Encounter Summary ---
Author Organization [facility] Healthcare Address [address] [place] [address] Care Team Providers Care Code Enforcement Officer Name Role Phone No, Physician Primary Care Provider [phone] Dale Funes MD Unavailable [phone] Encounter Details Date Type Department Care Team (Late st Contact Info) Description 10/14/2021 10:15 PM ORACLE CONSULTANT Lab [address] [address] Acute nasopharyngitis Social History Tobacco Use Types Packs/Day Years Used Date Smoking Tobacco: Former Smokeless Tobacco: Never Alcohol Use Standard Drinks/Week Comments Yes 0 (1 standard drink = 0.6 oz pur e alcohol) PHQ-2 Answer Date Recorded PHQ-2 Total Score 1 05/21/2020 Sex and Gender Information Value Date Recorded Sex Assigned at Not on file Legal Sex Male 1:06 AM ORACLE CONSULTANT Gender Identity Not on file Sexual Orientation Not on file documented as of this encounter Miscellaneous Notes * Result Encounter Note - Silvia Segovia MA - 10/15/2021 11:32 AM ORACLE CONSULTANT Pt aware of negative covid result, due to pt being fully vaccinated, aware to isolate until sx improvement as well as 24 hours fever free w/o the use of fever reducing medications. Pt verbalized understanding of all the above. LE CONSULTANT documented in this encounter Plan of Treatment Not on file documented as of this encounter Procedures Procedure Name Priority Date/Time Associated Diagnosis Comments COVID-19 CORONAVIRUS RNA Routine 10/14/2021 4:11 PM ORACLE CONSULTANT Acute nasopharyngitis documented in this encounter Results * COVID-19 Coronavirus RNA Nasopharyngeal (10/14/2021 4:11 PM ORACLE CONSULTANT) COVID-19 RNA Negative Negative [facility] Employeed in healthcare? No [facility] Group care resident? No [facility] Hospitalized? No [facility] Is patient in ICU? No [facility] Symptomatic as defined by CDC? Yes [facility] Nasopharyngeal 10/14/2021 4: 11 PM ORACLE CONSULTANT 10/14/2021 10:19 PM ORACLE CONSULTANT Narrative CERNER - 10/14/2021 11:27 PM ORACLE CONSULTANT What is the reason for testing?->Symptoms of COVID-19 in high-risk group Date of Symptom Onset->10/09/21 Idania Richardson DIAMOND DIE POLISHER LAB MICROBIOLOGY - GENERAL ORDERABLES Final Result [facility] [address] [address] Department of Laboratories [place] [id number] documented in this encounter Visit Diagnoses Diagnosis Acute nasopharyngitis Acute nasopharyngitis (common cold) documented in this encounter Additional Health Concerns Infection Onset Date Last Indicated Resolved Time COVID: Suspected 10/14/2021 10/14/2021 10/14/2021 11:28 PM ORACLE CONSULTANT documented as of this encounter Care Teams Code Enforcement Officer Relationship Specialty Start Date End Date No, Physician PCP - General 06/25/19 03/06/23 Dale Funes MD [address] [address] 06/25/19 documented as of this encounter
--- OUTSIDE RECORDS SUMMARY | 2024-11-03 20:14 | XMS_ITS | Encounter Summary ---
Author Organization [facility] Healthcare Address [address] [place] [address] Care Team Providers Care Pediatric Nurse Name Role Phone Dale Funes MD Unavailable [phone] Dale Funes MD Primary Care Provider [phone] Reason for Visit * Auth/Cert (Routine) Specialty Diagnoses / Procedures Referred By Contbebeto t Referred To Contact Diagnoses Other diseases of stomach and duodenum Other diseases of stomach and duodenum [K31.89] Procedures UT EDG US EXAM SURGICAL ALTER STOM DUODENUM/JEJUNUM EUS SC/OA/Interventional Referral ID Status Reason Start Date Expiration Date Visits Re quested Visits Authorized [id number] 1 1 Encounter Details Date Type Department Care Team (Late st Contact Info) Description 03/10/2023 8:00 AM CDT - 03/10/2023 9:00 AM CDT Surgery [facility] [address] [place] [address] Rosario Bravo MD [address] [facility] [address] [place], [place] [id number] EUS SC/OA/Interventional Surgery Details Date/Time Status Location OR Service Patient Class Case Class Case Type Trauma Case? 03/10/2023 8:00 AM Posted [facility] ENDOSCOPY EUS 09 Gastroenterology Outpatient Elective Panel 1 Procedure LRB Anes Op Region Wound Class Comments EUS SC/OA/Interventional Left Monitor Anesthesia Care N/A ENDO ADD ON ESOPHAGOGASTRODUODENOSCOPY REMOVAL SNARE N/A Choice Surgeon Surgeon Role Service Panel Tristin Chiu MD Fellow Gastroenterolo gy 1 Rosario Bravo MD Primary Gastroenterology 1 Special Needs EUS with me for antral nodule. Not urgent, no covid needed. documented in this encounter Social History Tobacco [...] on file Legal Sex Male 1:06 AM [employer] TECHN[employer] Gender Identity Not on file Sexual Orientation Not on file documented as of this encounter Last Filed Vital Signs Vital Sign Reading Time Taken Comments Blood Pressure 94/65 03/10/2023 8:55 AM CDT Pulse 72 03/10/2023 8:55 AM CDT Temperature 36.7 ??C (98.1 ??F) 03/10/2023 8:45 AM CD T Respiratory Rate 13 03/10/2023 8:55 AM CDT Oxygen Saturation 97% 03/10/2023 8:55 AM CDT Inhaled Oxygen Concentration - - [...] mg total) by mouth daily calcium carbonate (ZKER-SVK-225) 1,250 MG (500 mg of elemental calcium) tablet Take by mouth daily cholecalciferol (VITAMIN D-3) 50,000 unit capsule 37911 UNIT ORALLY WEEKLY 3 cyclobenzaprine (FLEXERIL) 10 [...] documented in this encounter H&P Notes * Lawrence, Rosario Mcdowell MD - 03/10/2023 7:48 AM [...] reflux (GERD) - (Added by TW Conv) Personal history of other diseases of the respiratory system History of asthma - (Added by TW Conv) Personal history of other endocrine, nutritional and metabolic disease History of diabetes mellitus - (Added by TW Conv) Personal history of urinary calculi History of renal calculi - (Added by TW Conv) Thyroid disease Type 2 diabetes mellitus (HCC) Past Surgical History: Procedure Laterality Date BACK SURGERY CHOLECYSTECTOMY KNEE SURGERY Bilateral Knee Surgery - (Added by TW Conv) NECK SURGERY Neck Surgery - (Added by TW Conv) UT ARTHRD ANT INTERBODY MIN DSC CRV BELOW C2 Cervical Vertebral Fusion - (Added by TW Conv) UT RPR UMBILICAL HERNIA < 5 YRS REDUCIBLE [...] (Added by TW Conv) Heart disease Other Family history of cardiac disorder - (Added by TW Conv) Hypertension Other Family history of hypertension - (Added by TW Conv) No Known Allergies Prior to Admission medications Medication Sig Start Date End Date Taking? Authorizing Provider allopurinol (ZYLOPRIM) 300 mg tablet Take 1 tablet (300 mg total) by mouth daily 06/17/19 Yes Provider, MD Chiqui aspirin 81 mg enteric coated tablet Take 1 tablet (81 mg total) by mouth daily Yes Provider Historical, MD calcium carbonate (PDEA-XPE-458) 1,250 MG (500 mg of elemental calcium) tablet Take by mouth daily Yes Chiqui Wynn MD cholecalciferol (VITAMIN D-3) 50,000 unit capsule 15366 UNIT ORALLY WEEKLY 12/18/22 Yes Chiqui Wynn MD DULoxetine (CYMBALTA) 30 mg capsule Take by mouth [...] by mouth Yes Chiqui Wynn MD pantoprazole (PROTONIX) 40 mg EC tablet Take 1 [...] mg Dosepack follow package directions 10/14/21 Idania Richardson, TAMIKO traMADoL (ULTRAM) 50 mg tablet TAKE 1 TABLET BY MOUTH EVERY 6 HOURS NEEDED FOR PAIN TAKE WITH ACETAMINOPHEN 325MG 01/25/23 ProviderChiqui MD lisinopril-hydroCHLOROthiazide (ZESTORETIC) 20-12.5 mg per tablet Take 1 tablet by mouth daily 06/11/19 03/10/23 ProviderChiqui MD Review of Systems A pertinent, focused [...] Male Attending MD: Rosario Bravo M.D. Room: [facility] ENDOSCOPY ROOM 9 Note Status: Finalized Procedure: [...] consent was obtained. The Olympus radial endosonoscope [id number] was introduced through the mouth, and advanced [...] 7 days, please contact my office at [phone]. - Return to referring physician as previously scheduled. Attending Participation: I was present and participated during the entire procedure, including non-beth portions. Electronically signed by Rosario Bravo MD Rosario Bravo M.D. 03/10/2023 8:54:53 AM . Number of Addenda: 0 Note Initiated On: 03/10/2023 7:50 AM Recognized by the [place] [employer] for promoting quality [...] gastric) 03/10/2023 8:31 AM CDT Narrative PATHOLOGY [facility] - 03/14/2023 3:25 PM CDT EPIC results best viewed via link to PDF [facility] [place] [address] Note to Patients: This report may contain [...] ??M : ??1955 (Age: 67) Address: ??[address] [place], [place] ??[address] Hospital #: ??[id number] Taken:03/10/2023 Received:03/10/2023 Reported: 03/14/2023 Patient Type: [facility] SDS ?? Service: Gastro Location: Physician(s): ??Rosario Bravo M.D. Dale Funes M.D. Swayer Aguila M.D. Tristin Chiu M.D. Diagnosis: Stomach, antrum, nodule, cold snare biopsy: ? -Antral mucosa with foveolar hyperplasia, acute and chronic inflammation and reactive epithelial changes. ? -A Helicobacter pylori immunostain is negative. ? -Negative for intestinal metaplasia, dysplasia, or neoplasm. chx/03/13/2023 13:49 By this signature, I attest that [...] A1. Jar 0. ?? elsw/03/10/2023 12:14 PA(s): Arlene Stewart By this signature, I attest that the above diagnosis is based upon my personal examination of the slides(and/or other material). Addenda/Procedures The performance characteristics of some immunohistochemical stains, fluorescence in-situ hybridization tests and immunophenotyping by flow cytometry cited in this report (if any) were determined by the Surgical Pathology and Flow Cytometry Departments at [facility] as part of an ongoing customer quality engineer program and in compliance with federally mandated [...] Pathology and Flow Cytometry Departments of [facility]. ??It has not been cleared or approved by the U. S. Food and Drug Administration. IMAGES AND SCANNED DOCUMENTS, IF INCLUDED, ONLY VIEWABLE IN PDF VERSION OF REPORT us Rosario Bravo MD LAB PATHOLOGY ORDERABLES Final Result PATHOLOGY [facility] 3rd Floor [place], [place] [phone] * EUS (03/10/2023 7:50 AM CDT) Anatomical Region Laterality Modality Other Narrative Procedure Note Rosario Bravo MD - 03/10/2023 7:50 AM CDT GI ENDOSCOPY [facility] Patient Name: Libertad Lorenzo Procedure Date: 03/10/2023 7:50 AM Date of : 1955 Admit Type: Outpatient Age: 67 Gender: Male Attending MD: Rosario Bravo M.D. Room: [facility] ENDOSCOPY ROOM 9 Note Status: Finalized Procedure: [...] informed consent was obtained. The Olympusradial endosonoscope [id number] was introduced throughthe mouth, and advanced to [...] 7 days, please contact my office at [phone]. - Return to referring physician as previously scheduled. Attending Participation: I was present and participated during the entire procedure, including non-beth portions. Electronically signed by Rosario Bravo MD Rosario Bravo M.D. 03/10/2023 8:54:53 AM . Number of Addenda: 0 Note Initiated On: 03/10/2023 7:50 AM Recognized by the [place] [employer] for promoting quality in endoscopy us Rosario Bravo MD ENDOSCOPY PROCEDURES Final Res ult * POCT glucose (03/10/2023 7:25 AM CDT) Glucose, POC 117 70 - 199 mg/dL [facility] Blood 03/10/2023 7:25 AM CDT 03/10/2023 7:25 AM CDT Rosario Bravo MD LAB POCT ORDERABLES - DEVICE F inal Result [facility] One [facility] Department [place] [address] documented in this encounter Visit Diagnoses Diagnosis Other diseases of stomach and duodenum Other diseases of stomach and duodenum documented [...] in sterile water 240 mL irrigation solution As needed, Starting on Mon03/10/23 at 0811, Intra-Op Given 03/10/2023 8:11 AM CDT 60 mL GI Tract sodium chloride 0.9% flush 0.5-20 mL 0.5-20 mL, intra-catheter, As needed, line care, Starting on Mon03/10/23 at 0716, Pre-Procedure (GI), Flush volume based on line type and size. Flush before and after each use. , Indications: FlushingIndications:Flus felix sodium chloride 0.9% infusion 30 mL/hr, intravenous, [...] 02/19/2023 cholecalciferol (VITAMIN D-3) 50,000 unit capsule 20613 UNIT ORALLY WEEKLY 12/18/2022 lisinopriL (PRINIVIL,ZESTRI L) 40 mg tablet Take 1 tablet (40 mg total) by mouth daily 01/23/2023 added in this encounter Active and Recently Administered Medications Times are shown in CDT. Continuous Medication Order 03/08/2023 03/09/2023 03/10/2023 sodium chloride 0.9% infusion 30 mL/hr, intravenous, [...] ondansetron (ZOFRAN) injection 4 mg 1 03/10 sodium chloride 0.9% flush 0.5-20 mL 1 02/27 Discharge Count Last Ordered Date First Orde red Date DISCHARGE PATIENT 1 03/10/2023 documented in this encounter Care Teams Pediatric Nurse Relationship Specialty Start Date End Date Dale Funes MD [address] [place] [address] PCP - General Family Medicine 03/07/23 Dale Funes MD [address] [place] [address] 06/25/19 documented as of this encounter
--- OUTSIDE RECORDS SUMMARY | 2024-11-03 20:14 | XMS_ITS | Encounter Summary ---
Author Organization [facility] Address [address] [place] [address] Care Team Providers Care Donor Technician Name Role Phone Unavailable Primary Care Provider Unavailabl e Encounter Details Date Type Department Care Team (Latest Contact Info) Description 11/29/2017 Hospital Outpatient Visit [facility] Gastroenterology and Hepatology [address] [place] [address] Christos Blum MD [address] [place] [address] Discharge Disposition: Home or Self Care Social [...]
--- OUTSIDE RECORDS SUMMARY | 2024-11-03 20:14 | XMS_ITS | Continuity of Care Document ---
Author Organization [facility] Address [address] [id number] Care Team Providers Care Billet Worker Name Role Phone Dale Funes Primary Care Physician Encounter [facility] Financial Number [id number] Date(s): 02/23/24 - 02/23/24 [facility] [address] [id number] Encounter Diagnosis PVCs (premature ventricular contractions)(Discharge Diagnosis) - 02/23/24 Discharge Disposition: Home or Self Care Attending Physician: Greg Espinal MD Referring Physician: Greg Espinal MD Allergies, Adverse Reactions, Alerts No Known Medication Allergies Assessment and Plan Future Appointments Appointment Date:04/22/2024 12:00:00 PM Scheduled Provider:Raquel Velasquez MD Location:[facility] Appointment Type:[facility] EP Established Patient Appointment Date:02/25/2025 12:15:00 PM Scheduled Provider: Location:[facility] Appointment Type:[facility] EKG Appointment Date:02/25/2025 12:30:00 PM Scheduled Provider:Sushma Hurd NP Location:[facility] Appointment Type:[facility] Follow Up Medications Aleve 220 mg [...] 90 tablet(s), 3, Route to Pharmacy Electronically, [facility] [id number], [id number], 185.4, cm, 12/28/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, Height, 138.1, kg, 12/28/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, Weight Start Date: 01/10/24 Status: Ordered metFORMIN 500 mg oral tablet, extended release 1,000 mg, 2 tablet(s), bid, 0 Start Date: 05/13/19 Status: Ordered Metoprolol Succinate ER 25 mg oral tablet, extended release 1 tablet(s), Oral, daily, 90 tablet(s), 2, Route to Pharmacy Electronically, [facility], [id number], 185.4, cm, 12/28/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, 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, 138.1, kg, 12/28/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, Weight Start Date: 02/05/24 Status: Ordered Multivitamin [...] Range]: 1 Peripheral Pulse Rate [60-100 bpm] 80 bp m (02/23/24 12:35 PM) Blood Pressure [89-139/60-90 mm Hg] 140/ 70mm Hg *H* (02/23/24 12:35 PM) Height 185.4 cm (02/23/24 12:35 PM) Weight 142.4 kg (02/23/24 12:35 PM) Social History Social History Type Response [...] Event Display: Patient Provided Clipboard Authored Date: [id number] Ambulatory Comprehensive Intake Ambulatory Comprehensive IntakeOriginating Source: PATIENTOriginating Author: LIBERTAD POLKlipboard Submission Date: May 11, 2019 5:03:29 PM CDT LIBERTAD LORENZO : 1955 Sex: Male MRN(s): [id number] Ambulatory Comprehensive Intake Question Response Advance Directive No; Patient DECLINED additional information Advance Directive Date Location of Advance Directive Type of Advance Directive Patient has Court Appointed Guardian No Location of Court Appointed Guardian Documentation Legal Guardian Medical Power of Spinning And Winding Supervisor Name Patient Requests Counseling Regarding Advance Directives History of Falling in Last 3 Months, Including Since Admission No Impaired Judgment/Lack of Safety Awareness No Agitation No Impaired Gait, Shuffle, Wide Base, Unsteady Walk No Ever Experience Dizziness or Vertigo No Ever Wet or Soil Yourself on Way to Bathroom No Medical Devices None Wire Straightener Card Other Wire Straightener Details Radiology Testing Barriers/Precautions None Menstrual Status N/A Last Menstrual Period Previous LMP Date Last Menstrual Period Description Menarche Onset Menarche Frequency Menarche Length Menstrual Comments PAP result HPV Coping Stressors Emotional Support Available Yes Do You Receive Comfort From Spiritual Practices Yes Orthodox Preference Non-quaker Spiritual Practice Comments Weight Change >10lbs No [...] voices No Marital or relationship problems No cow buyer awakenings No Chief Complaint Pain Present Yes actual or suspected pain Numeric Rating Pain Scale 6 Primary Pain Location Back - Lower Primary Pain Comments Neck and back pain caused by accident Electrophysiology Office/Clinic Note * Greg Espinal MD: PERFORM Event Display: Electrophysiology Office/Clinic Note Authored Date: Patient Information Name:LIBERTAD LORENZO Address: [address] [place], [place] [phone] Sex:Male Date of :1955 Emergency Contact:TAY LORENZO Location:[facility] Registration Date and Time:02/23/2024 12:13 CDT Primary Care Physician: Dale Funes M.D., Attending Physician: Greg Espinal MD, Chief Complaint PVC/NSVT History of Present Illness ?? Consult requested by: Jazz Velasquez,??Md ?? PCP: Dale Funes MD ?? Reason for consult: [place] ?? History of Present Illness: The patient is a??68 year old with a history of CAD, HTN, DM2, HLD and hypothyroidism. He has a history of PVCs with a 4% PVC burden and some 3 episodes of NSVT. He feels tired??all the time when he has??PVC ?? ECG from consultation??with RVOT origin. ?? The patient underwent PVC ablation on 12/28/23.??The earliest site was noted near the junction of??RCC and LCC. Unipolar mapping confirmed the earliest site as 30 ms presystolic. Ablation was performed with elimination of focus. ?? He present today for follow up. Oh man, I just feel great! Less fatigue. no palp. NO SOB. No LINDSAY. ?? Review of Systems: General: ??No weight [...] evident 4 % of all heart beats. 3.??Ventricular tachycardia was noted 3 times with the [...] RVEF = 45 %.?? 3. ??On suboptimal quality??late gadolinium enhancement??imaging there appears to be??patchy subendocardial enhancement involving the basal inferolateral wall. [...] artery stenosis appears closer to 50%. ?? 02/23/24 ECG NSR with RBBB ?? Impression: 1. 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 Patchy subendocardial enhancement of basal inferolateral wall 3. HTN ?? Recommendations: 1.??With regard to Frequent PVC, ?? - s/p PVC ablation at junction of RCC/LCC - ECG today with no PVC - Symptomatically improved.? 2. Follow up in 1 year ? J. Wesly Espinal MD, [facility], [facility] Clinical Cardiac Electrophysiology [facility] ?? Office? Vitals and Measurements Vital Signs Height: 185.4 cm Height Inches Conversion: 73 Weight: 142.4 kg Weight in Pounds (kg conversion): 313.3 Body Surface Area: 2.7081 m2 Body Mass Index: 41.43 kg/m2 Systolic Blood Pressure:??140 mm Hg??High Diastolic Blood Pressure: 70 mm Hg Peripheral Pulse Rate: 80 bpm Oxygen Saturation: 97 % Assessment/Plan 1.??PVCs (premature ventricular contractions) Follow Up No qualifying data available Problem [...] other voice to text assistive technology and endocrinologist, variances may occur. Patient Care team information Care Team Personnel Name: Dale Funes M.D. Position: ZZ FAX ONLY - MD NOT ON STAFF Member Role: Primary Care Physician Address: Address: [address] [address]- Name: Raquel Velasquez MD Position: Physician - Cardiology Member Role: Staff Sonographer Address: Address: [address] [place] [address] Dr [address] Name: Lg Johnson MD Position: Physician - Cardiology Member Role: Specialist Physician Address: Address: [address] [place] [address] Drive [address] Name: Nora Grimes CNP Position: AMB INTERNET MARKETING DIRECTOR/PA Member Role: Nurse Practitioner Address: Address: [address] [place] [address] Name: Sushma Hurd NP Position: AMB INTERNET MARKETING DIRECTOR/PA Member Role: Nurse Practitioner Address: Address: [address] [facility] [address] [place] [address] Name: Greg Espinal MD Position: Physician - Electrophysiology Med Service: Digital Sales Director Billet Worker Role: Attending Physician Address: Address: [address] [facility] [address] [place] [address] [place] Care Team Related Persons Name: TAY LORENZO Name: SEAN LORENZO Address: home [address] [facility], [phone]
--- OUTSIDE RECORDS SUMMARY | 2024-11-03 20:14 | XMS_ITS | Patient Health Summary ---
Author Organization [facility] Address [address] [place] [address] Care Team Providers Care Powder Compounder Name Role Phone Dale Funes MD Primary Care Provider [phone] Note from [facility],non-owned Affiliates and Associated Physician Practices is amultiple site organization consisting of ambulatory clinics and hospital sitesin [place], [place], [place] and [place]. This disclosure is being madepursuant to the Care Everywhere program and may not contain all information available regarding this patient. Last updated 18.[facility] Social History Tobacco Use Types Packs/Day Years Used Date Smoking Tobacco: Never Assessed Sex and Gender Information Value Date Recorded Sex Assigned at Not on file Gender Identity Not on file Sexual Orientation Not on file Last Filed Vital Signs Vital Sign Reading Time Taken Comments Blood Pressure 113/72 12/26/2017 12:23 PM FITTING ROOM ASSOCIATE Pulse 75 12/26/2017 12:23 PM FITTING ROOM ASSOCIATE Temperature 36.3 ??C (97.4 ??F) 12/26/2017 8:19 AM CS T Respiratory Rate 13 12/26/2017 12:23 PM FITTING ROOM ASSOCIATE Oxygen Saturation 94% 12/26/2017 12:23 PM FITTING ROOM ASSOCIATE Inhaled Oxygen Concentration - - Weight 127.9 kg (282 lb) 12/26/2017 8:15 AM FITTING ROOM ASSOCIATE Height 185.4 cm (6' 1 ) 12/26/2017 8:15 AM FITTING ROOM ASSOCIATE Body Mass Index 37.21 12/26/2017 8:15 AM FITTING ROOM ASSOCIATE Procedures * PATHOLOGY TISSUE(Performed 12/26/2017) * ARY BLOOD SCREEN W/REFLEX TITER(Performed 11/13/2017) * SMOOTH MUSCLE ANTIBODY(Performed 11/13/2017) * MITOCHONDRIAL ANTIBODY SCREEN(Performed 11/13/2017) * ARY BLOOD TITER(Performed 11/13/2017) * HEPATITIS B CORE ANTIBODY TOTAL(Performed 11/13/2017) * HEPATITIS B SURFACE ANTIBODY(Performed 11/13/2017) * COMPREHENSIVE METABOLIC PANEL(Performed 11/13/2017) * CBC W AUTO DIFFERENTIAL(Performed 11/13/2017) * PT-INR [facility](Performed 11/13/2017) * HEPATITIS B SURFACE ANTIGEN W RFLX CONFIRMATION(Performed 11/13/2017) * HEPATITIS C AB W/RFLX TO HCV RNA QN PCR(Performed 11/13/2017) * HEPATITIS A ANTIBODY(Performed 11/13/2017) * FERRITIN(Performed 11/13/2017) * IRON + TIBC PANEL(Performed 11/13/2017) * CERULOPLASMIN(Performed 11/13/2017) * [id number]-9-[id number] BLOOD(Performed 11/13/2017) * IGG BLOOD(Performed 11/13/2017) * INTERPRETATION (7)(Performed 11/13/2017) Results * PATHOLOGY TISSUE (12/26/2017 9:57 AM FITTING ROOM ASSOCIATE) Surgical Pathology Tissue ACCESSION No: [id number] CLINICAL HISTORY: Elevated liver enzymes, hepatocellular pattern with intact liver, synthetic function. ??Most likely etiology is HERRMANN given his risk factors. ??Evaluate for HERRMANN vs. other causes. ??Fibrosis staining. FINAL DIAGNOSIS: Liver, needle core biopsy: - Mild steatosis with inflammation - Focal perisinusoidal fibrosis (stage 1A) - See description and comment MICROSCOPIC DESCRIPTION AND COMMENT: The specimen consists of one short liver core containing 6 portal tracts of varying sizes. Portal inflammation is mostly absent in the small portal tracts, though there is a mild lymphocytic infiltrate in the larger portal tracts. There is no overrepresentation of plasma cells and interface activity is minimal to absent. Interlobular bile ducts are relatively unremarkable. There is no cholestasis. Macrovesicular steatosis is mild, with large droplet fat present in approximately 5-10% of the hepatocytes. There is no ballooning or Carrie-Denk bodies. Lobular inflammation is minimal. The trichrome stain highlights focal perisinusoidal fibrosis. The reticulin stain highlights focal areas of condensation. The PAS-D stain is negative for mfxoj-1-igvqkvcbedy globules. The iron stain is negative. While the tissue core is small and subcapsular with <10 portal tracts for evaluation, the overall histologic findings are compatible with the clinical suspicion of fatty liver disease; if this small sampling were truck sales representative of the whole liver, the BRUCE score would be 2/8. The portal inflammation, while mild, is still quite evident within the larger portal tracts. The significance of this finding is not entirely clear, though could still be within the realm of fatty liver disease. Diagnostic features of autoimmune hepatitis, chronic hepatitis, or chronic cholestatic liver disease are not seen. ??Clinical correlation is recommended. DC/PF GROSS DESCRIPTION: The specimen is received in one formalin-filled container labeled with the patient's name, Juan, Teo, and liver biopsy , and consists of one core of woods-brown tissue with a diameter of 0.1 cm and a length of 0.9 cm, submitted in toto in cassette A1. ED/edk The performance characteristics of all immunohistochemical and indirect immunofluorescence stains (if any) cited in this report were determined by the Histopathology Laboratory of [facility].?? Some of these tests were developed by our own laboratory and have not been cleared or approved by the US Food and Drug Administration.?The FDA does not require this test to go through premarket FDA review.?These tests are used for clinical purposes. They should not be regarded as investigational or for research.?? This laboratory is certified under the Clinical Laboratory Improvement Amendments (CLIA) as qualified to perform high complexity clinical laboratory testing. This case has been personally reviewed and interpreted by the attending (teaching) pathologist. Final Diagnosis performed by Yvrose Lee MD. Electronically signed 12/27/2017 [facility] Other (qualifier value) 12/26/2017 9:57 AM FITTING ROOM ASSOCIATE 12/26/2017 12:25 PM FITTING ROOM ASSOCIATE Narrative [facility] - 12/27/2017 2:47 PM FITTING ROOM ASSOCIATE Elevated liver enzymes, hepatocellular pattern with intact liver synthetic function. Most likely etiology is HERRMANN given his risk factors. Evaluate for HERRMANN vs other causes. Fibrosis staging Specimen A->Liver Christos Blum MD LAB - PATHOLOGY/CYTOLOGY ORDERABLES [facility] [address] [facility]. [address] [phone] * PT-INR [facility] (11/13/2017 1:39 PM FITTING ROOM ASSOCIATE) INR 1.1 0.8 - 1.2 [facility] Comment: Reference interval is for non-anticoagulated patients. Suggested INR therapeutic range for Vitamin K antagonist therapy: ?? Standard Dose (moderate intensity ?therapeutic range): ? 2.0 - 3.0 ?? Higher intensity therapeutic range ? 2.5 - 3.5 PT 11.3 9.1 - 12.0 sec [facility] ([facility]) Blood specimen (specimen) BLOOD SPECIMEN / Unknown 11/13/2017 1:39 PM FITTING ROOM ASSOCIATE 11/13/2017 Narrative [facility] ([facility]) - 11/14/2017 7:11 AM FITTING ROOM ASSOCIATE Is patient on Heparin, Argatroban or Dabigatran?->N Performed at: ??01 - [address] ??[id number] Library Services Coordinator: Wayne Kelly PhD, Phone: ??[phone] Christos Blum MD LAB - COAGULATION ORDERABLES Performing Organization Address City/[facility]/ZIP Co de Phone Number [facility] ([facility]) [address] [place] [address] * HEPATITIS C AB W/RFLX TO HCV RNA QN PCR (11/13/2017 1:39 PM FITTING ROOM ASSOCIATE) Hepatitis C Antibody 0.2 0.0 - 0.9 s/co ratio [facility] ([facility]) 11/13/2017 1:39 PM FITTING ROOM ASSOCIATE 11/13/2017 Narrative [facility] ([facility]) - 11/14/2017 7:11 AM FITTING ROOM ASSOCIATE Performed at: ??01 - [address] ??[id number] Library Services Coordinator: Wayne Kelly PhD, Phone: ??[phone] Christos Blum MD LAB - CHEMISTRY ORDERABLES Performing Organization Address [facility] de Phone Number [facility]) [address] [place] [address] * INTERPRETATION (7) (11/13/2017 1:39 PM FITTING ROOM ASSOCIATE) Interpretation [facility] ([facility]) Comment: Negative Not infected with HCV, unless recent infection is suspected or other evidence exists to indicate HCV infection. 11/13/2017 1:39 PM FITTING ROOM ASSOCIATE 11/13/2017 Narrative [facility] ([facility]) - 11/14/2017 7:11 AM FITTING ROOM ASSOCIATE Performed at: ??01 - [place] [id number] [place], [place] ??[id number] Library Services Coordinator: Wayne Kelly PhD, Phone: ??[phone] Christos Blum MD LAB - SEROLOGY ORDERABLES Performing Organization Address [facility] de Phone Number [facility]) [address] [place] [address] * MITOCHONDRIAL ANTIBODY SCREEN (11/13/2017 1:39 PM FITTING ROOM ASSOCIATE) Pathologist [facility] Mitochondrial M2 Antibody <20.0 0.0 - 20.[address] [facility]) Comment: ?Negative ?0.0 - 20.0 ?Equivocal ??20.1 - 24.9 ?Positive ? >24.9 Mitochondrial (M2) Antibodies are found in 90-96% of patients with primary biliary cirrhosis. Blood specimen (specimen) BLOOD SPECIMEN / Unknown 11/13/2017 1:39 PM FITTING ROOM ASSOCIATE 11/13/2017 Narrative [facility] ([facility]) - 11/14/2017 3:11 PM FITTING ROOM ASSOCIATE Performed at: ??01 - [facility] [address] [facility], [place], [place] ??[id number] Library Services Coordinator: Wayne Kelly PhD, Phone: ??[phone] Christos Blum MD LAB - CHEMISTRY ORDERABLES [facility] ([facility]) [address] [place] [address], [facility] * (ABNORMAL) ARY BLOOD TITER (11/13/2017 1:39 PM FITTING ROOM ASSOCIATE) Homogeneous Pattern 1:160(H) [facility] Note [facility] ([facility]) Comment: A positive ARY result may occur in healthy individuals (low titer) or be associated with a variety of diseases. ??See interpretation chart which is not all inclusive: Pattern ?Antigen Detected ??Suggested Disease Association ? Homogeneous ??DNA(ds,ss), ? SLE - High titers ? Nucleosomes, ? Histones ?Drug-induced SLE ? Speckled ? Sm, IT RECRUITER, SCL-70, ??SLE,MCTD,PSS (diffuse form), ? SS-A/SS-B ? Sjogrens ? Nucleolar ?SCL-70, PM-1/SCL ??High titers Scleroderma, ? PM/DM ? Centromere ?? Centromere ?PSS (limited form) w/Crest ? syndrome variable ? Nuclear Dot ??Sp100,[id number] ??Primary Biliary Cirrhosis ? Nuclear ?GP210, ?Primary Biliary Cirrhosis Membrane ? edwardo A,B,C ? 11/13/2017 1:39 PM FITTING ROOM ASSOCIATE 11/13/2017 Narrative [facility] ([facility]) - 11/14/2017 3:11 PM FITTING ROOM ASSOCIATE Performed at: ??01 - [facility] [address] [place], [place] ??[id number] Library Services Coordinator: Wayne Kelly PhD, Phone: ??[phone] Christos Blum MD LAB - CHEMISTRY ORDERABLES Performing Organization Address [facility] de Phone Number [facility] ([facility]) [address] [place] [address] * (ABNORMAL) ARY BLOOD SCREEN W/REFLEX TITER (11/13/2017 1:39 PM FITTING ROOM ASSOCIATE) ARY IFA Positive(A ) [facility] ([facility]) Comment: ? Negative ?? <1:80 ? Borderline ??1:80 ? Positive ?? >1:80 Blood specimen (specimen) BLOOD SPECIMEN / Unknown 11/13/2017 1:39 PM FITTING ROOM ASSOCIATE 11/13/2017 Narrative [facility] ([facility]) - 11/14/2017 3:11 PM FITTING ROOM ASSOCIATE Performed at: ??01 - [facility] [address] [place], [place] ??[id number] Library Services Coordinator: Wayne Kelly PhD, Phone: ??[phone] Christos Blum MD LAB - CHEMISTRY ORDERABLES Performing Organization Address [facility] Co de Phone Number [facility] ([facility]) [address] [place] [address], [facility] * CERULOPLASMIN (11/13/2017 1:39 PM FITTING ROOM ASSOCIATE) Pathologist [facility] Ceruloplasmin 30.6 16.0 - 31.0 mg/dL [facility] ([facility]) Blood specimen (specimen) BLOOD SPECIMEN / Unknown 11/13/2017 1:39 PM FITTING ROOM ASSOCIATE 11/13/2017 Narrative [facility] ([facility]) - 11/14/2017 7:11 AM FITTING ROOM ASSOCIATE Performed at: ??01 - [facility] ??[id number] Library Services Coordinator: Wayne Kelly PhD, Phone: ??[phone] Christos Blum MD LAB - CHEMISTRY ORDERABLES Performing Organization Address [facility] de Phone Number [facility] ([facility]) [address] [place] [address] * [id number] BLOOD (11/13/2017 1:39 PM FITTING ROOM ASSOCIATE) Judgp-4-Rxmnpmw psin 159 90 - 200 mg/dL [facility] ([facility]) Blood specimen (specimen) BLOOD SPECIMEN / Unknown 11/13/2017 1:39 PM FITTING ROOM ASSOCIATE 11/13/2017 Narrative [facility] ([facility]) - 11/14/2017 7:11 AM FITTING ROOM ASSOCIATE Performed at: ??01 - [address] ??[id number] Library Services Coordinator: Wayne Kelly PhD, Phone: ??[phone] Christos Blum MD LAB - CHEMISTRY ORDERABLES Performing Organization Address [facility] de Phone Number [facility] [address] [place] [address] * SMOOTH MUSCLE ANTIBODY (11/13/2017 1:39 PM FITTING ROOM ASSOCIATE) Actin (Smooth Muscle) Antibody 13 0 - 19 Units [facility] ([facility]) Comment: ? Negative ? 0 - 19 ? Weak positive ? 20 - 30 ? Moderate to strong positive ? >30 Actin Antibodies are found in 52-85% of patients with autoimmune hepatitis or chronic active hepatitis and in 22% of patients with primary biliary cirrhosis. 11/13/2017 1:39 PM FITTING ROOM ASSOCIATE 11/13/2017 Narrative [facility] ([facility]) - 11/14/2017 3:11 PM FITTING ROOM ASSOCIATE Performed at: ??01 - [facility] [address] [facility], [place], [place] ??[id number] Library Services Coordinator: Wayne Kelly PhD, Phone: ??[phone] Christos Blum MD LAB - SEROLOGY ORDERABLES [facility] ([facility]) [address] [place] [address], [facility] * CBC W AUTO DIFFERENTIAL (11/13/2017 1:39 PM FITTING ROOM ASSOCIATE) WBC 8.1 3.4 - 10.8 x10E3/uL [facility] ([facility]) RBC 5.50 4.14 - 5.80 x10E6/uL [facility] ([facility]) Hemoglobin 15.9 13.0 - 17.7 g/dL [facility] ([facility]) Hematocrit 45.8 37.5 - 51.0 % [facility] ([facility]) MCV 83 79 - 97 fL [facility] ([facility]) MCH 28.9 26.6 - 33.0 pg [facility] ([facility]) MCHC 34.7 31.5 - 35.7 g/dL [facility] ([facility]) RDW-CV 14.2 12.3 - 15.4 % [facility] ([facility]) Platelet 214 150 - 379 x10E3/uL [facility] ([facility]) Neutrophils % 71 Not Estab. % [facility] ([facility]) Lymphocytes % 20 Not Estab. % [facility] ([facility]) Monocytes % 7 Not Estab. % [facility] ([facility]) Eosinophils % 1 Not Estab. % [facility] ([facility]) Basophil % 1 Not Estab. % [facility] ([facility]) Neutrophils Absolute 5.7 1.4 - 7.0 x10E3/uL [facility] ([facility]) Lymphocyte Absolute Manual 1.6 0.7 - 3.1 x10E3/uL [facility] ([facility]) Monocytes Absolute 0.5 0.1 - 0.9 x10E3/uL [facility] ([facility]) Eosinophils Absolute Manual 0.1 0.0 - 0.4 x10E3/uL [facility] ([facility]) Basophil Absolute Manual 0.0 0.0 - 0.2 x10E3/uL [facility] ([facility]) Immature Granulocytes % 0 Not Estab. % [facility] ([facility]) Immature Granulocytes absolute 0.0 0.0 - 0.1 x10E3/uL [facility] ([facility]) Blood specimen (specimen) BLOOD SPECIMEN / Unknown 11/13/2017 1:39 PM FITTING ROOM ASSOCIATE 11/13/2017 Narrative [facility] ([facility]) - 11/14/2017 7:11 AM FITTING ROOM ASSOCIATE Performed at: ??01 - [facility] [address] ??[id number] Library Services Coordinator: Wayne Kelly PhD, Phone: ??[phone] Christos Blum MD LAB - HEMATOLOGY ORDERABLES [facility] ([facility]) [address] [place] [address] * (ABNORMAL) COMPREHENSIVE METABOLIC PANEL (11/13/2017 1:39 PM FITTING ROOM ASSOCIATE) Glucose 106(H) 65 - 99 mg/dL [facility] ([facility]) BUN 19 8 - 27 mg/dL [facility] ([facility]) Creatinine 1.23 0.76 - 1.27 mg/dL [facility] ([facility]) eGFR non- 62 >59 mL/min/1.7 3 [facility] ([facility]) eGFR 72 >59 mL/min/1.7 3 [facility] ([facility]) BUN/Creatinine Ratio 15 10 - 24 [facility] ([facility]) Sodium 139 134 - 144 mmol/L [facility] ([facility]) Potassium 4.4 3.5 - 5.2 mmol/L [facility] ([facility]) Chloride 99 96 - 106 mmol/L [facility] ([facility]) CO2 22 18 - 29 mmol/L [facility] ([facility]) Calcium 10.0 8.6 - 10.2 mg/dL [facility] ([facility]) Protein Total 7.6 6.0 - 8.5 g/dL [facility] ([facility]) Albumin 4.7 3.6 - 4.8 g/dL [facility] ([facility]) Globulin Total 2.9 1.5 - 4.5 g/dL [facility] ([facility]) Albumin/Globulin Ratio 1.6 1.2 - 2.2 [facility] ([facility]) Bilirubin Total 0.7 0.0 - 1.2 mg/dL [facility] ([facility]) Alkaline Phosphatase 85 39 - 117 IU/L [facility] ([facility]) AST 109(H) 0 - 40 IU/L [facility] ([facility]) ALT 160(H) 0 - 44 IU/L [facility] ([facility]) Blood specimen (specimen) BLOOD SPECIMEN / Unknown 11/13/2017 1:39 PM FITTING ROOM ASSOCIATE 11/13/2017 Narrative [facility] ([facility]) - 11/14/2017 7:11 AM FITTING ROOM ASSOCIATE Performed at: ??01 - [facility] [address] [place], [place] ??[id number] Library Services Coordinator: Wayne Kelly PhD, Phone: ??[phone] Christos Blum MD LAB - CHEMISTRY ORDERABLES [facility] ([facility]) [address] [place] [address] * IRON + TIBC PANEL (11/13/2017 1:39 PM FITTING ROOM ASSOCIATE) TIBC 444 250 - 450 ug/dL [facility] ([facility]) UIBC 341 111 - 343 ug/dL [facility] ([facility]) Iron 103 38 - 169 ug/dL [facility] ([facility]) Iron Saturation 23 15 - 55 % [facility] ([facility]) Serum 11/13/2017 1:39 PM FITTING ROOM ASSOCIATE 11/13/2017 Narrative [facility] ([facility]) - 11/14/2017 7:11 AM FITTING ROOM ASSOCIATE Performed at: ??01 - [address] ??[id number] Library Services Coordinator: Wayne Kelly PhD, Phone: ??[phone] Christos Blum MD LAB - CHEMISTRY ORDERABLES Performing Organization Address [facility] de Phone Number [facility] ([facility]) [address] [place] [address] * HEPATITIS B SURFACE ANTIBODY (11/13/2017 1:39 PM FITTING ROOM ASSOCIATE) Pathologist [facility] Hepatitis B Virus Surface Antibody Non Reactive [facility] ([facility]) Comment: ?Non Reactive: Inconsistent with immunity, ?less than 10 mIU/mL ?Reactive: ? Consistent with immunity, ?greater than 9.9 mIU/mL Blood specimen (specimen) BLOOD SPECIMEN / Unknown 11/13/2017 1:39 PM FITTING ROOM ASSOCIATE 11/13/2017 Narrative [facility] ([facility]) - 11/14/2017 7:11 AM FITTING ROOM ASSOCIATE Performed at: ??01 - [address] ??[id number] Library Services Coordinator: Wayne Kelly PhD, Phone: ??[phone] Christos Blum MD LAB - CHEMISTRY ORDERABLES Performing Organization Address [facility] de Phone Number [facility]) [address] [place] [address] * HEPATITIS B CORE ANTIBODY (11/13/2017 1:39 PM FITTING ROOM ASSOCIATE) Hepatitis B Core Virus Antibody Total Negative Negative [facility] ([facility]) Blood specimen (specimen) BLOOD SPECIMEN / Unknown 11/13/2017 1:39 PM FITTING ROOM ASSOCIATE 11/13/2017 Narrative [facility] ([facility]) - 11/14/2017 7:11 AM FITTING ROOM ASSOCIATE Performed at: ??01 - [address] ??[id number] Library Services Coordinator: Wayne Kelly PhD, Phone: ??[phone] Christos Blum MD LAB - CHEMISTRY ORDERABLES Performing Organization Address City/[facility] Co de Phone Number [facility] ([facility]) [address] [place] [address] * HEPATITIS B SURFACE ANTIGEN W RFLX CONFIRMATION (11/13/2017 1:39 PM FITTING ROOM ASSOCIATE) Hepatitis B Virus Surface Antigen Screen Negative Negative [facility] ([facility]) Blood specimen (specimen) BLOOD SPECIMEN / Unknown 11/13/2017 1:39 PM FITTING ROOM ASSOCIATE 11/13/2017 Narrative [facility] ([facility]) - 11/14/2017 7:11 AM FITTING ROOM ASSOCIATE Performed at: ??01 - [address] ??[id number] Library Services Coordinator: Wayne Kelly PhD, Phone: ??[phone] Christos Blum MD LAB - CHEMISTRY ORDERABLES Performing Organization Address City/[facility] Co de Phone Number [facility] [address] [place] [address] * IGG BLOOD (11/13/2017 1:39 PM FITTING ROOM ASSOCIATE) IgG Quantitative 1006 700 - 1600 mg/dL [facility] ([facility]) Blood specimen (specimen) BLOOD SPECIMEN / Unknown 11/13/2017 1:39 PM FITTING ROOM ASSOCIATE 11/13/2017 Narrative [facility] ([facility]) - 11/14/2017 7:11 AM FITTING ROOM ASSOCIATE Performed at: ??01 - [address], [place] ??[id number] Library Services Coordinator: Wayne Kelly PhD, Phone: ??[phone] Christos Blum MD LAB - CHEMISTRY ORDERABLES Performing Organization Address City/[facility]/ZIP Co de Phone Number [facility] ([facility]) [address] [place] [address] * (ABNORMAL) HEPATITIS A ANTIBODY (11/13/2017 1:39 PM FITTING ROOM ASSOCIATE) Pathologist [facility] Hepatitis A Virus Antibody Total Positive(A ) Negative [facility] ([facility]) Blood specimen (specimen) 11/13/2017 1:39 PM FITTING ROOM ASSOCIATE 11/13/2017 Narrative [facility] ([facility]) - 11/14/2017 7:11 AM FITTING ROOM ASSOCIATE Performed at: ??01 - [address] ??[id number] Library Services Coordinator: Wayne Kelly PhD, Phone: ??[phone] Christos Blum MD LAB - CHEMISTRY ORDERABLES Performing Organization Address [facility] Co de Phone Number [facility] ([facility]) [address] [place] [address] * FERRITIN (11/13/2017 1:39 PM FITTING ROOM ASSOCIATE) [facility] Ferritin 138 30 - 400 ng/mL [facility] ([facility]) Blood specimen (specimen) BLOOD SPECIMEN / Unknown 11/13/2017 1:39 PM FITTING ROOM ASSOCIATE 11/13/2017 Narrative [facility] ([facility]) - 11/14/2017 7:11 AM FITTING ROOM ASSOCIATE Performed at: ??01 - [address] ??[id number] Library Services Coordinator: Wayne Kelly PhD, Phone: ??[phone] Christos Blum MD LAB - CHEMISTRY ORDERABLES Performing Organization Address City/[facility]/ZIP Co de Phone Number [facility] ([facility]) [address] [place] [address] Care Teams Powder Compounder Relationship Specialty Start Date End Date Dale Funes MD PCP - General 03/14/18
--- OUTSIDE RECORDS SUMMARY | 2024-11-03 20:14 | XMS_ITS | Continuity of Care Document ---
Author Organization [facility] Address [address] [place] [id number] Care Team Providers Care Patch Finisher Name Role Phone LesliewesleyDale Primary Care Physician Encounter [facility] Financial Number [id number] Date(s): 10/26/23 - 10/26/[address] [id number] Discharge Disposition: Home or Self Care Attending Physician: Raquel Velasquez MD Admitting Physician: Raquel Velasquez MD Referring Physician: Raquel Velasquez MD Allergies, Adverse Reactions, Alerts No Known Medication Allergies Assessment and Plan Future Appointments Appointment Date:11/22/2023 01:15:00 PM Scheduled Provider: Location:[facility] Appointment Type:[facility] EKG Appointment Date:11/22/2023 01:30:00 PM Scheduled Provider:Sushma Hurd NP Location:[facility] ST Appointment Type:[facility] New Patient Appointment Date:04/22/2024 12:00:00 PM Scheduled Provider:Raquel Velasquez MD Location:[facility] Sp Appointment Type:[facility] EP Established Patient Medications Aleve 220 mg oral capsule 220 mg, 1 capsule(s), daily, 0 Start Date: 05/13/19 Status: Ordered allopurinol 300 mg oral tablet 300 mg, 1 tablet(s), Oral, daily, 30 tablet(s), Tablet(s), 0 Start Date: 05/13/19 Status: Ordered amLODIPine 10 mg oral tablet 10 mg, 1 tablet(s), Oral, daily, 90 tablet(s), Tablet(s), 3, 3, Route to Pharmacy Electronically, [facility]/pharmacy #[id number], [id number], 185.4, cm, 10/16/23 12:14:00 [place], Height, 140.16, kg, 10/16/23 12:14:00 [place], Weight Start Date: 10/16/23 Status: Ordered aspirin [...] 0, Route to Pharmacy Electronically, [facility]/pharmacy #[id number], [id number], 185.4, cm, 08/21/23 11:21:00 CDT, Height, 137.2, [...] 6, Route to Pharmacy Electronically, [facility]/pharmacy #[id number], [id number], 185.4, cm, 08/21/23 11:21:00 CDT, Height, 137.2, [...] 3, Route to Pharmacy Electronically, [facility]/pharmacy #[id number], [id number], 185.4, cm, 08/21/23 11:21:00 CDT, Height, 137.2, [...] Exam Date Time Procedure Performing Provider Status 10/26/23 3:48 PM PET/CT NON-CARDIAC SARCOIDOSIS FINDINGS Al Patel [employer] Med [employer]; Auth (Verified) Notes: (PET/CT NON-CARDIAC SARCOIDOSIS FINDINGS) Reason For Exam: abnormal mri PET/CT NON-CARDIAC SARCOIDOSIS FINDINGS PET/CT NONCARDIAC SARCOIDOSIS FINDINGS RADIOPHARMACEUTICAL: 11.297 mCi F-18 Fluorodeoxyglucose IV. GLUCOSE LEVEL: 144 mg/dL. HISTORY: Abnormal cardiac MRI. COMPARISON: None. TECHNIQUE: The area scanned spanned from the skull base to the proximal thighs. Axial noncontrast CT images performed at 4 mm increments are used for metabolic image fusion and attenuation correction only. CT scans are not diagnostic examinations. After intravenous administration of F-18 FDG, a series of overlapping emission PET images were obtained. Cardiac findings will be reported separately. MEDIASTINAL BLOOD POOL MAXIMUM SUV: 3.2 HEPATIC PARENCHYMAL MAXIMUM SUV: 3.9 FINDINGS: There are no regions of abnormal FDG metabolism in the neck, chest, abdomen, pelvis or visualized lower extremities. Incidental CT findings include mucosal thickening in the right maxillary sinus. Thyroidectomy has been performed. Postoperative changes are noted in the cervical spine. Coronary artery calcification is noted. There is diffuse hepatic steatosis. Cholecystectomy has been performed. Bilateral gynecomastia is noted. There is a punctate nonobstructing right renal calculus. There is a 1.7 cm right renal cyst. Subcentimeter hyperattenuating left renal lesion most likely is a hyperdense cyst. Colonic diverticuli are noted. Postoperative changes are noted in the lumbar spine. IMPRESSION: No regions of abnormal FDG metabolism. Incidental CT findings as described above. ISB:[facility] Dictating Physician: Colt Vazquez M.D. Releasing Physician: Colt Vazquez M.D. Signature Electronically Authorized Authorized Date/Time: 26-OCT-2023 05:05 pm Transcribed D/T: 26-OCT-2023 04:35 pm * Exam Date Time Procedure Performing Provider Status 10/26/23 3:48 PM PET/CT SARCOIDOSIS W/IMAGING Al Mcelroy [employer] [facility]; Modified Notes: (PET/CT SARCOIDOSIS W/IMAGING) Reason For Exam: abnormal mri PET/CT SARCOIDOSIS W/IMAGING INITIAL Dear Dr. Raquel Velasquez, Your patient LIBERTAD LORENZO, a 68 years year old Male is referred for cardiac PET scan to evaluate for underlying cardiac sarcoidosis. Study Protocol: Patient underwent rest PET study on 10/26/2023 and F-18 FDG PET-CT study on 10/26/2023. A myocardial perfusion PET study following the IV administration of 30.0 mCi of Rubidium-82 at rest (01:21 PM). Gated PET images were obtained at rest. To assess cardiac metabolism, patient was instructed to eat a fatty meal prior to the scheduled appointment to suppress uptake of FDG by normal myocardium. Patient reported that he complied compliance with dietary recommendations. A myocardial PET/CT study following the IV administration of 11.2 mCi of F-18 FDG at rest after a 90-minute uptake period. A limited whole body FDG PET/CT scan was also performed. A limited CT scan of the chest was obtained solely for the purpose of attenuation correction and was not meant to serve as a diagnostic study. Interpretation: Rest myocardial perfusion and FDG images: Image quality was excellent. There was excellent normal myocardial suppression on the FDG images. Rest perfusion: There is normal resting perfusion. The summed rest score (SRS) is 0. Gated PET results: The resting left ventricular ejection fraction (LVEF) is 58%. There is normal thickening of all the left ventricular segments. FDG interpretation: There was excellent normal myocardial suppression on the FDG images. There is no evidence of abnormal FDG uptake by the myocardium. The peak SUV is 1.7, which does not meet cutoff of 2.5. Comparison: Compared with prior MRI 10/17/2023, no abnormal FDG uptake is seen to correlate with abnormal subendocardial enhancement in basal inferolateral wall. SUMMARY: 1. Myocardial Perfusion: normal 2. Global LV Function: normal 3. Myocardial glucose utilization: normal FINAL IMPRESSION: 1. There is no evidence of active myocardial inflammation. There is no evidence of underlying active cardiac sarcoidosis. 2. Normal rest perfusion. Normal left ventricular systolic function with LVEF 58%. Please refer to separate report from Nuclear Medicine/ Radiology for extra cardiac findings and interpretation from the limited whole body PET-CT. Thank you for referring this patient to [facility]. Dictating Physician: Lory Duran MD Releasing Physician: Lory Duran MD Signature Electronically Authorized Authorized Date/Time: 26-OCT-2023 06:26 pm Social History Social History Type Response Alcohol Current some day alc ohol user, 1-2 times per month Substance Abuse Never drug user Smoking Status Former smoker;Never; Tobacco Cessation Counseling Requested No; Stopped at age: 46; entered on: 08/21/23 Sex Note * Event Display: Authorization to Treat Authored Date: [id number] * Event Display: Authorization to Treat Authored Date: [id number] * Event Display: ROI_Correspondence * Event Display: Patient Provided Clipboard Authored Date: [id number] Ambulatory Comprehensive Intake Ambulatory Comprehensive IntakeOriginating Source: PATIENTOriginating Author: LIBERTAD Randhawa Submission Date: May 11, 2019 5:03:29 PM CDT LIBERTAD LORENZO : 1955 Sex: Male MRN(s): [id number] Ambulatory Comprehensive Intake Question Response Advance Directive No; Patient DECLINED additional information Advance Directive Date Location of Advance Directive Type of Advance Directive Patient has Court Appointed Guardian No Location of Court Appointed Guardian Documentation Legal Guardian Medical Power of Adult Services Librarian Name Patient Requests Counseling Regarding Advance Directives History of Falling in Last 3 Months, Including Since Admission No Impaired Judgment/Lack of Safety Awareness No Agitation No Impaired Gait, Shuffle, Wide Base, Unsteady Walk No Ever Experience Dizziness or Vertigo No Ever Wet or Soil Yourself on Way to Bathroom No Medical Devices None Nurse'S Assistant Card Other Nurse'S Assistant Details Radiology Testing Barriers/Precautions None Menstrual Status N/A Last Menstrual Period Previous LMP Date Last Menstrual Period Description Menarche Onset Menarche Frequency Menarche Length Menstrual Comments PAP result HPV Coping Stressors Emotional Support Available Yes Do You Receive Comfort From Spiritual Practices Yes Catholic Preference Non-cheondoism Spiritual Practice Comments Weight Change [...] voices No Marital or relationship problems No eye surgeon awakenings No Chief Complaint Pain Present Yes actual or suspected pain Numeric Rating Pain Scale 6 Primary Pain Location Back - Lower Primary Pain Comments Neck and back pain caused by accident Patient Care team information Care Team Personnel Name: Dale Funes M.D. Position: SHARON FAX ONLY - MD NOT ON STAFF Member Role: Primary Care Physician Address: Address: [address] [place] [address]- Name: Raquel Velasquez MD Position: Physician - Cardiology Member Role: Resp Therapist Address: Address: [address] [place] [address] Dr [address] [place] [address] Name: Lg Johnson MD Position: Physician - Cardiology Member Role: Specialist Physician Address: Address: [address] Care Team Related Persons Name: TAY LORENZO Name: SEAN LORENZO Address: home [address] [facility] [facility], [id number]
--- OUTSIDE RECORDS SUMMARY | 2024-11-03 20:15 | XMS_ITS | Encounter Summary ---
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, wasps and bees; Unspecified place of occurrence; External cause status; Essential hypertension Social History Tobacco Use Types Packs/Day Years Used Date Smoking Tobacco: Never Assessed Sex and Gender Information Value Date Recorded Sex Assigned at Not on file 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
--- OUTSIDE RECORDS SUMMARY | 2024-11-03 20:15 | XMS_ITS | Encounter Summary ---
Author Organization [facility] Facility Care Team Providers Care Cylinder Inspector Name Role Phone No, Physician Primary Care Provider [phone] Dale Funes MD Unavailable [phone] Encounter Details Date Type Department Care Team (Latest Contact Info) Description 07/31/2019 Travel Social History Tobacco Use Types Packs/Day Years Used Date Smoking Tobacco: Former Smokeless Tobacco: Never Alcohol Use Standard Drinks/Week Comments Yes 0 (1 standard drink = 0.6 oz pur e alcohol) PHQ-2 Answer Date Recorded PHQ-2 Score 6 07/31/2019 Sex and Gender Information Value Date Recorded Sex Assigned at Not on file 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
--- OUTSIDE RECORDS SUMMARY | 2024-11-03 20:15 | XMS_ITS | Encounter Summary ---
Author Organization [facility] Healthcare Address [address] [place] [address] Care Team Providers Care Diagrammer And Seamer Name Role Phone Dale Funes MD Primary Care Provider [phone] Encounter Details Date Type Department Care Team (Late st Contact Info) Description 12/13/2018 12:05 AM DIRECTOR HEALTH Ancillary Procedure [facility] - Imaging [phone] Theo Waller MD [address] [facility] [address] [place] [address] Social History Tobacco Use Types Packs/Day Years Used Date Smoking Tobacco: Former Sex and Gender Information Value Date Recorded Sex Assigned at Not on file 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 Theo Waller MD IMG MRI PROCEDURES Final Resu lt RAD_PACS_[facility] documented in this encounter Visit Diagnoses Not on filedocumented in this encounter Care Teams Diagrammer And Seamer Relationship Specialty Start Date End Date Dale Funes MD [address] [address] PCP - General 07/08/09 06/24/19 documented as of this encounter
--- OUTSIDE RECORDS SUMMARY | 2024-11-03 20:15 | XMS_ITS | Encounter Summary ---
Author Organization [facility] Facility Care Team Providers Care Medical Scientist Name Role Phone Dale Funes MD Primary Care Provider [phone] Encounter Details Date Type Department Care Team (Late st Contact Info) Description 07/01/2014 - 07/01/2014 11:59 PM T Hospital [facility] MD [address] [place] [address] [address] [place] [address] Enlarged lymph nodes; Pre-procedural laboratory examination; Other specified pre-operative examination; Swelling, mass, or lump in head and neck; Essential hypertension; Type 2 or unspecified type diabetes mellitus; Esophageal reflux; Hemorrhoids; Calculus of kidney; Postlaminectomy syndrome, cervical region; Personal history of tobacco use, presenting hazards to health; Cough; Wheezing; Shortness of breath; Dizziness and giddiness; Disturbance of skin sensation; Encounter for long-term use of antiplatelets/antith rombotics; Encounter for long-term (current) use of aspirin; Encounter for long-term (current) use of other medications Social History Tobacco Use Types Packs/Day Years Used Date Smoking Tobacco: Former Sex and Gender Information Value Date Recorded Sex Assigned at Not on file 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 TERESA CARRASQUILLO M.D. FINAL REPORT The radiology attending physician has personally reviewed this study, and has reviewed and/or edited this written report and agrees with it. ACC# ??Date Time ??Exam [id number] Jul 01, 2014 13:41:[id number] Chest without contrast ACC# ??Date Time ??Exam [id number] Jul 01, 2014 13:41:[id number] Chest without contrast EXAMINATION: ?CT of the chest without intravenous contrast HISTORY: 59-year-old man with lymphadenopathy TECHNIQUE: ??Transaxial computed tomographic images of the chest were obtained without intravenous contrast according to standard protocol. FINDINGS: ??No prior chest CT available for comparison. The lung parenchyma is normal. ??No edema. ??No pneumothorax. ??No pleural effusion. There are 2 tiny calcified nodules, one in the right upper lobe, and one in the left lower lobe. The pericardium, heart and great vessels are normal. There are 2 enlarged prevascular lymph nodes in the superior mediastinum, the largest of which measures 4.5 x 2.5 cm. No hilar, supraclavicular, or axillary lymphadenopathy. Limited images of the upper abdomen are normal. Specifically, the spleen is normal in size. Bone windows are unremarkable. ?? IMPRESSION: 1. 2 enlarged prevascular lymph nodes in the superior mediastinum, the largest of which measures 4.5 x 2.5 cm. ?? Requested By: GAIL BETANCOURT M.D. Dictated By: ?? TERESA CARRASQUILLO M.D. ??on Jun ??2013 ??2:16P This document has been electronically signed by: AUBREY BRAMBILA M.D. on Jul 01 2014 ??3:18P [id number] Procedure Note Provider, MD Chiqui - 02/22/2017 AUBREY BRAMBILA M.D. TERESA CARRASQUILLO M.D. FINAL REPORT The radiology attending physician has personally reviewed this study, and has reviewed and/or edited this written report and agrees with it. [facility]# Date Time Exam [id number] Jul 01, 2014 13:41:[id number] Chest without contrast ACC# Date Time Exam [id number] Jul 01, 2014 13:41:[id number] Chest without contrast EXAMINATION: CT of the chest without intravenous contrast HISTORY: 59-year-old man with lymphadenopathy TECHNIQUE: Transaxial computed tomographic images of the chest were obtained without intravenous contrast according to standard protocol. FINDINGS: No prior chest CT available for comparison. The lung parenchyma is normal. No edema. No pneumothorax. No pleural effusion. There are 2 tiny calcified nodules, one in the right upper lobe, and one in the left lower lobe. The pericardium, heart and great vessels are normal. There are 2 enlarged prevascular lymph nodes in the superior mediastinum, the largest of which measures 4.5 x 2.5 cm. No hilar, supraclavicular, or axillary lymphadenopathy. Limited images of the upper abdomen are normal. Specifically, the spleen is normal in size. Bone windows are unremarkable. IMPRESSION: 1. 2 enlarged prevascular lymph nodes in the superior mediastinum, the largest of which measures 4.5 x 2.5 cm. Requested By: GAIL BETANCOURT M.D. Dictated By: TERESA CARRASQUILLO M.D. on Jul 01 2014 2:16P This document has been electronically signed by: AUBREY BRAMBILA M.D. on Jul 01 2014 3:18P [id number] us Historical Provider MD ALEX CT PROCEDURES Final R esult documented in this encounter Visit Diagnoses Diagnosis Enlarged lymph nodes Enlargement of lymph nodes Pre-procedural laboratory examination Other specified pre-operative examination Swelling, mass, or lump in head and neck Essential hypertension Unspecified essential hypertension Type 2 or unspecified type diabetes mellitus Esophageal reflux Hemorrhoids Calculus of kidney Postlaminectomy syndrome, cervical region Personal history of tobacco use, presenting hazards to health Cough Wheezing Shortness of breath Dizziness and giddiness Disturbance of skin sensation Encounter for long-term use of antiplatelets/antithrombotics Encounter for long-term (current) use of antiplatelets/antithrombotics Encounter for long-term (current) use of aspirin Encounter for long-term (current) use of other medications documented in this encounter Care Teams Medical Scientist Relationship Specialty Start Date End Date Dale Funes MD [address] [address] PCP - General 07/08/09 06/24/19 documented as of this encounter
--- OUTSIDE RECORDS SUMMARY | 2024-11-03 20:15 | XMS_ITS | Encounter Summary ---
Author Organization [facility] Facility Care Team Providers Care Game Preserve Manager Name Role Phone Unavailable Primary Care Provider Unavailabl e Encounter Details Date Type Department Care Team (Late st Contact Info) Description 03/18/2008 9:28 AM CDT - 03/22/2008 12:01 AM CDT Hospital Encounter [facility] Theo Allison MD [address] [place] [address] Social History Tobacco Use Types Packs/Day Years Used Date Smoking Tobacco: Never Assessed Sex and Gender Information Value Date Recorded Sex Assigned at Not on file 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
--- OUTSIDE RECORDS SUMMARY | 2024-11-03 20:15 | XMS_ITS | Encounter Summary ---
Author Organization [facility] Facility Care Team Providers Care Special Education Itinerant Teacher Name Role Phone Unavailable Primary Care Provider Unavailabl e Encounter Details Date Type Department Care Team (Late st Contact Info) Description 04/15/2008 2:14 PM CDT - 04/15/2008 11:59 PM CDT Hospital Encounter [facility] Theo Allison MD [address] [place] [id number] Social History Tobacco Use Types Packs/Day Years Used Date Smoking Tobacco: Never Assessed Sex and Gender Information Value Date Recorded Sex Assigned at Not on file Legal 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
--- OUTSIDE RECORDS SUMMARY | 2024-11-03 20:15 | XMS_ITS | Encounter Summary ---
Author Organization [facility] Facility Care Team Providers Care Chef De Froid Name Role Phone Unavailable Primary Care Provider Unavailabl e Encounter Details Date Type Department Care Team (Late st Contact Info) Description 01/30/2008 12:57 PM CDT - 01/30/2008 11:59 PM CDT Hospital Encounter [facility] Theo Allison MD [address] [place] [id number] Social History Tobacco Use Types Packs/Day Years Used Date Smoking Tobacco: Never Assessed Sex and Gender Information Value Date Recorded Sex Assigned at Not on file 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
--- OUTSIDE RECORDS SUMMARY | 2024-11-03 20:15 | XMS_ITS | Encounter Summary ---
Author Organization [facility] Healthcare Address [address] [place] [address] Care Team Providers Care Electronic Assembly Name Role Phone Dale Funes MD Primary Care Provider [phone] Encounter Details Date Type Department Care Team (Late st Contact Info) Description 12/13/2018 Ancillary Procedure [facility] - Imaging [phone] Theo Waller MD [address] [facility] [address] [place] [address] Social History Tobacco Use Types Packs/Day Years Used Date Smoking Tobacco: Former Sex and Gender Information Value Date Recorded Sex Assigned at Not on file Legal Sex Male 1:06 AM [employer] Gender Identity Not on file Sexual Orientation Not on file documented as of this encounter Plan of Treatment Not on file documented as of this encounter Procedures Procedure Name Priority Date/Time Associated Diagnosis Comments MRI TRANSFER OF OUTSIDE FILMS Routine 12/13/2018 12:00 AM [employer] documented in this encounter Results * MRI Outside Reference (12/13/2018 12:00 AM [employer]) Narrative [facility] - 07/30/2019 3:16 PM CDT This order has been auto-finalized and does not contain a result. us Theo Waller MD IMG MRI PROCEDURES Final Resu lt RAD_PACS_[facility] documented in this encounter Visit Diagnoses Not on filedocumented in this encounter Care Teams Electronic Assembly Relationship Specialty Start Date End Date Dale Funes MD [address] [address] PCP - General 07/08/09 06/24/19 documented as of this encounter
--- OUTSIDE RECORDS SUMMARY | 2024-11-03 20:15 | XMS_ITS | Encounter Summary ---
Author Organization [facility] Facility Care Team Providers Care Acquisitions Librarian Name Role Phone Dale Funes MD Primary Care Provider [phone] Encounter Details Date Type Department Care Team (Late st Contact Info) Description 08/28/2014 - 08/28/2014 11:59 PM CDT Hospital Encounter [facility] Jose C Abad MD [address] [place] [address] Disorder of thyroid Social History Tobacco Use Types Packs/Day Years Used Date Smoking Tobacco: Former Sex and Gender Information Value Date Recorded Sex Assigned at Not on file Legal 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 Gender Identity Not on file Sexual Orientation Not on file documented as of this encounter Plan of Treatment Not on file documented as of this encounter Procedures Procedure Name Priority Date/Time Associated Diagnosis Comments DISCHARGE LABORATORY CUMULATIVE REPORT Routine 08/28/2014 5:10 PM CDT SERUM THYROXINE (T4), FREE Routine 08/28/2014 9:23 AM CDT SERUM THYROID-STIMULATING HORMONE (TSH) Routine 08/28/2014 9:23 AM CDT SERUM CALCIUM Routine 08/28/2014 9:23 AM CDT PLASMA PARATHYROID HORMONE (PTH), INTACT Routine 08/28/2014 9:23 AM CDT documented in this encounter Results * Discharge Laboratory Cumulative Report (08/28/2014 5:10 PM CDT) 08/28/2014 5:10 PM CDT Narrative HISTORICAL RESULTS - 08/28/2014 5:10 PM CDT ? [facility] ? Department of Laboratories ? [facility] ? [place] ?[place] [address] ?[facility] ?CAM 5-D ? Patient Name: ? BJ LIBERTAD Vero Med Rec Number: ?? [id number] Date of : ?1955 Gender/Age: ? Male 59 years Doctor: ? Jose C Abad M.D. Report Date/Time: 08/28/2014 17:10 ?* Abnormal ??C Critical ??f Footnote ??^ Corrected ??L Low ??H High ?i Interp Data ??@ Reference Lab ?Chart Type: Cumulative ? CHEMISTRY ? Standard Blood Chemistry ? 08/28/2014 ? 09:23:00 Test ? Units ??Reference Total Calcium ??10.1 ?mg/dL ??8.6-10.3 ? Hormones ?08/28/2014 ?09:23:00 Test ?Units ? Reference TSH i ? 0.38 ?mcIUnit/mL ??0.35-5.50 Free T4 (Free Thyroxine) ??1.42 ?ng/dL ? 0.90-1.80 Intact PTH ?16 ?pg/mL ? 14-72 08/28/2014 09:23:00 TSH: Interpretive Data Hyperthyroid: ??<0.1 mcIUnit/mL Hypothyroid: ??>12.0 mcIUnit/mL Current interpretive data was last revised on 00. us Historical Provider MD LAB BLOOD ORDERABLES Noemi vero Result HISTORICAL RESULTS * Serum thyroid-stimulating hormone (TSH) (08/28/2014 9:23 AM CDT) TSH 0.38 0.35 - 5.50 mcIUnits/m l HISTORICAL RESULTS Comment: Interpretive Data Hyperthyroid: ??<0.1 mcIUnit/mL Hypothyroid: ??>12.0 mcIUnit/mL Current interpretive data was last revised on 00. Serum 08/28/2014 9:23 AM CDT Jose C Abad MD LAB BLOOD ORDERABLES Fi nal Result Performing Organization Address City/[facility] de Phone Number HISTORICAL RESULTS * Serum calcium (08/28/2014 9:23 AM CDT) Calcium 10.1 8.6 - 10.3 mg/dl HISTORICAL RESULTS Serum 08/28/2014 9:23 AM CDT Jose C Abad MD LAB BLOOD ORDERABLES Fi nal Result Performing Organization Address [facility] de Phone Number HISTORICAL RESULTS * Serum thyroxine (T4), free (08/28/2014 9:23 AM CDT) Free T4 1.42 0.90 - 1.80 ng/dl HISTORICAL RESULTS Serum 08/28/2014 9:23 AM CDT Jose C Abad MD LAB BLOOD ORDERABLES Fi nal Result Performing Organization Address City/[facility] de Phone Number HISTORICAL RESULTS * Plasma parathyroid hormone (PTH), intact (08/28/2014 9:23 AM CDT) PTH, intact 16 14 - 72 pg/ml HISTORICAL RESULTS Plasma 08/28/2014 9:23 AM CDT Jose C Abad MD LAB BLOOD ORDERABLES Fi nal Result Performing Organization Address City/[facility] de Phone Number HISTORICAL RESULTS documented in this encounter Visit Diagnoses Diagnosis Disorder of thyroid Unspecified disorder of thyroid documented in this encounter Care Teams Acquisitions Librarian Relationship Specialty Start Date End Date Dale Funes MD [address] [address] PCP - General 07/08/09 06/24/19 documented as of this encounter
--- OUTSIDE RECORDS SUMMARY | 2024-11-03 20:15 | XMS_ITS | Encounter Summary ---
Author Organization [facility] Facility Care Team Providers Care Section Maintainer Name Role Phone Dale Funes MD Primary Care Provider [phone] Encounter Details Date Type Department Care Team (Late st Contact Info) Description 07/10/2014 6:23 AM CDT - 07/10/2014 4:00 PM CDT Hospital Encounter [facility] Bandar Barron MD [address] [place] [address] [address] [place] [address] Swelling, mass, or lump in head and neck; Essential hypertension; Other abnormal glucose; Esophageal reflux; Arthropathy; Personal history of tobacco use, presenting hazards to health; Allergy to insects and arachnids; Encounter for long-term (current) use of aspirin; Encounter for long-term (current) use of other medications; Family history of ischemic heart disease Social History Tobacco Use Types Packs/Day Years Used Date Smoking Tobacco: Former Sex and Gender Information Value Date Recorded Sex Assigned at Not on file Legal Sex Male 1:06 AM CLINICAL RN Gender Identity Not on file Sexual Orientation Not on file documented as of this encounter Miscellaneous Notes * Op Note - ProviderChiqui MD - 07/10/2014 12:00 AM CDT Patient: Libertad Lorenzo Reg No: [id number] H #: [id number] Admit Dt.: 07/10/2014 : 1955 Pt Type: 200 Room No: PVTOP Attending: Bandar Irving M.D. Surgeon: Bandar rIving M.D. Dictating: Bandar Irving M.D. Service Dt: 07/10/2014 OPERATIVE REPORT FIRST DIESEL MECHANIC APPRENTICE: Tristin Langston M.D. ANESTHESIA: General. PREOPERATIVE DIAGNOSIS (ES): High left peritracheal mass. POSTOPERATIVE DIAGNOSIS (ES): High left peritracheal mass. NAME OF OPERATION: 1. Flexible diagnostic bronchoscopy. 2. Attempted endobronchial ultrasound-guided transbronchial needle aspiration of high left peritracheal mass. INDICATIONS FOR PROCEDURE: The patient is a 59-year-old male who had recently presented with a cough and mild dysphagia. During his workup, he had a CT scan which demonstrated a 3-4 cm mass in the high left peritracheal region. We attempted cutaneous ultrasound biopsy. However, they were not able to adequately visualize it. I thought that we would potentially be able to biopsy it with endobronchial ultrasound. DESCRIPTION OF PROCEDURE: The patient was taken to the operating room and underwent an uncomplicated induction of general anesthesia with an LMA. The endobronchial ultrasound scope was inserted, and within 3 cm of the cricoid to the left, we attempted to visualize this mass which I felt we could potentially see, but not as clearly as I had hoped. It was also difficult to tell the difference between the thyroid and this mass itself, as they were apposed on the CT scan. We performed several transbronchial needle aspirations for a total of three passes with ultrasound guidance, and got mostly bronchial epithelial cells and some thyroid tissue. There was no obvious malignancy. The regular bronchoscope was inserted and the trachea, jose j, right mainstem, left mainstem, and all segmental bronchi bilaterally were normal without any intrabronchial lesions or abnormalities. There was nothing to suggest intrabronchial tumor as a source of his cough. The specific area just below the cricoid was hemostatic and there were no masses or abnormalities of the mucosa there. The scope was removed. The patient tolerated the procedure well and there were no complications. The patient was transferred extubated to the recovery room in stable condition. PRESENT STATEMENT: Please note that I was present and directly participated in the entire procedure. It is possible that this could be a multinodular goiter, although I am not convinced of this. I discussed with the patient performing a thyroid scan and if this is not thyroid tissue, then at a separate time I would plan to do a mediastinoscopy to do a larger biopsy. Electronically Signed By Bandar Irving M.D. 08/04/2014 01:48 P Bandar Irving M.D. TDC/mra #[id number] Editing MT: TD: 07/12/2014 06:08:00 cc: Bandar Irving M.D. documented in this encounter Plan of Treatment Not on file documented as of this encounter Procedures Procedure Name Priority Date/Time Associated Diagnosis Comments XR CONSULT OF OUTSIDE FILMS (PEDS ONLY) Routine 07/23/2014 9:45 AM CDT XR CONSULT OF OUTSIDE FILMS (PEDS ONLY) Routine 07/23/2014 9:43 AM CDT OUTSIDE NUCMED CONSULT Routine 07/21/2014 1:04 PM CDT XR CONSULT OF OUTSIDE FILMS (PEDS ONLY) Routine 07/21/2014 1:00 PM CDT DISCHARGE LABORATORY CUMULATIVE REPORT Routine 07/10/2014 5:22 PM CDT BLOOD GLUCOSE, POC Routine 07/10/2014 3: 43 PM CDT BLOOD GLUCOSE, POC Routine 07/10/2014 12 :34 PM CDT CYTOLOGY 07/10/2014 documented in this encounter Results * XR Interpretation Of Outside Films (07/23/2014 9:45 AM CDT) Anatomical Region Laterality Modality N/A Radiographic Maryan ging 07/23/2014 9:45 AM CDT Narrative 07/23/2014 11:29 AM CDT OUTSIDE IMAGES SERVICE SUPPORT REPRESENTATIVE, FINAL REPORT ACC# ??Date Time ??Exam [id number] Jul 23, 2014 09:43:00 [id number] [facility] Plain Film Reference [id number] Jul 23, 2014 09:45:[id number] [facility] Body CT Reference EXAMINATION: ?Images For Reference Purposes Only IMPRESSION: ?These images have been uploaded for Reference purposes only. ??There will be no separate report generated by a [facility] Radiologist. Requested By: Dictated By: ?? OUTSIDE IMAGES SERVICE SUPPORT REPRESENTATIVE, ?? on Jul 23 2014 11:29A This document has been electronically signed by: OUTSIDE IMAGES SERVICE SUPPORT REPRESENTATIVE, ??on Jul 23 2014 11:29A [id number] Procedure Note Provider, MD Chiqui - 02/22/2017 OUTSIDE IMAGES SERVICE SUPPORT REPRESENTATIVE, FINAL REPORT ACC# Date Time Exam Jul 23, 2014 09:43:00 [id number] [facility] Plain Film Reference [id number] Jul 23, 2014 09:45:[id number] [facility] Body CT Reference EXAMINATION: Images For Reference Purposes Only IMPRESSION: These images have been uploaded for Reference purposes only. There will be no separate report generated by a [facility] Radiologist. Requested By: Dictated By: OUTSIDE IMAGES SERVICE SUPPORT REPRESENTATIVE, on Jul 23 2014 11:29A This document has been electronically signed by: OUTSIDE IMAGES SERVICE SUPPORT REPRESENTATIVE, on Jul 23 2014 11:29A [id number] us Historical Provider IMG XR PROCEDURES Final R esult * XR Interpretation Of Outside Films (07/23/2014 9:43 AM CDT) Anatomical Region Laterality Modality N/A Radiographic Maryan ging 07/23/2014 9:43 AM CDT Narrative 07/23/2014 11:29 AM CDT OUTSIDE IMAGES SERVICE SUPPORT REPRESENTATIVE, FINAL REPORT ACC# ??Date Time ??Exam [id number] Jul 23, 2014 09:43:00 [id number] [facility] Plain Film Reference [id number] Jul 23, 2014 09:45:[id number] [facility] Body CT Reference EXAMINATION: ?Images For Reference Purposes Only IMPRESSION: ?These images have been uploaded for Reference purposes only. ??There will be no separate report generated by a [facility] Radiologist. Requested By: Dictated By: ?? OUTSIDE IMAGES SERVICE SUPPORT REPRESENTATIVE, ?? on Jul 23 2014 11:29A This document has been electronically signed by: OUTSIDE IMAGES SERVICE SUPPORT REPRESENTATIVE, ??on Jul 23 2014 11:29A [id number] Procedure Note Provider, Chiqui, - 02/22/2017 OUTSIDE IMAGES SERVICE SUPPORT REPRESENTATIVE, FINAL REPORT ACC# Date Time Exam [id number] Jul 23, 2014 09:43:00 [id number] [facility] Plain Film Reference [id number] Jul 23, 2014 09:45:[id number] [facility] Body CT Reference EXAMINATION: Images For Reference Purposes Only IMPRESSION: These images have been uploaded for Reference purposes only. There will be no separate report generated by a [facility] Radiologist. Requested By: Dictated By: OUTSIDE IMAGES SERVICE SUPPORT REPRESENTATIVE, on Jul 23 2014 11:29A This document has been electronically signed by: OUTSIDE IMAGES SERVICE SUPPORT REPRESENTATIVE, on Jul 23 2014 11:29A [id number] us Historical Provider IMG XR PROCEDURES Final R esult * OUTSIDE NUCMED CONSULT (07/21/2014 1:04 PM CDT) Anatomical Region Laterality Modality N/A Nuclear Medicine 07/21/2014 1:04 PM CDT Narrative 07/21/2014 5:05 PM CDT CASSANDRA RIVAS M.D. LISA RENAE M.D. FINAL REPORT The radiology attending physician has personally reviewed this study, and has reviewed and/or edited this written report and agrees with it. ACC# ??Date Time ??Exam [id number] Jul 21, 2014 13:04:00 [id number] [facility] NucMed Consult ACC# ??Date Time ??Exam [id number] Jul 21, 2014 13:04:00 [id number] [facility] NucMed Consult EXAMINATION: ?? RADIOLOGY CONSULTATION ON OUTSIDE IMAGING STUDY STUDY INITIALLY PERFORMED: ??07/15/2014 at [place], [place]. TYPE OF STUDY: 24-hour I-123 thyroid imaging. The images available for review consisted of planar thyroid scintigraphy in anterior, NORWEGIAN, and GRIJALVA projections. The protocol was adequate to address the clinical question. ??The outside final report was available at the time of this second opinion. DATE OF CONSULTATION: 07/21/2014 REASON FOR CONSULTATION: 59-year-old man with left neck mass. COMPARISON: Chest CT dated 07/01/[address] dated 06/10/2014. FINDINGS: There is diffuse and homogeneous I-123 uptake in the right and left lobes of of thyroid gland. There is no focally increased activity or defect to suggest hyper- or hypofunctioning thyroid nodule. I-123 uptake less intense than that of normal thyroid tissue is seen inferior to the left lobe of the thyroid gland is visualized; this uptake corresponds with the heterogeneously enhancing soft tissue masses inferior to the left lobe of thyroid gland seen on the outside CT images. IMPRESSION: 1. The thyroid gland intrinsically appears normal, with no hyper- of hypofunctioning nodules identified. 2. Mild I-123 uptake inferior to the left lobe corresponds to the soft tissue masses seen on CT images. These masses appear separate from the thyroid gland itself and thus are not likely to represent hypofunctioning components of a multinodular thyroid extending into the upper mediastinum; the normal appearance of the remainder of thyroid gland also argues against this. ??True ectopic thyroid tissue with degenerative changes is a possibility. ??More likely, even though uncommon when the thyroid is intact, these lesions could represent functioning metastatic lesions from a primary thyroid carcinoma, which is not itself seen on the scintigraphic or CT images. The findings, conclusions and recommendations within this report do not replace the initial findings, conclusions ??and recommendations made at the facility where the study was performed based upon the imaging and clinical condition at that time. ??Comparison with the prior report and clinical history is necessary. ??The provided images may or may not represent the [place] data set and thus may contain changes that may lower the accuracy of this second-opinion interpretation. :: ?? Requested By: Dictated By: ?? LISA RENAE M.D. ??on Jul 21 2014 ??3:23P This document has been electronically signed by: CASSANDRA RIVAS M.D. on Jul 21 2014 ??5:05P [id number] Procedure Note Provider, MD Chiqui - 04/26/2017 CASSANDRA RIVAS M.D. LISA RENAE M.D. FINAL REPORT The radiology attending physician has personally reviewed this study, and has reviewed and/or edited this written report and agrees with it. ACC# Date Time Exam [id number] Jul 21, 2014 13:04:00 [id number] [facility] NucMed Consult ACC# Date Time Exam [id number] Jul 21, 2014 13:04:00 [id number] [facility] NucMed Consult EXAMINATION: RADIOLOGY CONSULTATION ON OUTSIDE IMAGING STUDY STUDY INITIALLY PERFORMED: 07/15/2014 at [place], [place]. TYPE OF STUDY: 24-hour I-123 thyroid imaging. The images available for review consisted of planar thyroid scintigraphy in anterior, NORWEGIAN, and GRIJALVA projections. The protocol was adequate to address the clinical question. The outside final report was available at the time of this second opinion. DATE OF CONSULTATION: 07/21/2014 REASON FOR CONSULTATION: 59-year-old man with left neck mass. COMPARISON: Chest CT dated 07/01/[address] dated 06/10/2014. FINDINGS: There is diffuse and homogeneous I-123 uptake in the right and left lobes of of thyroid gland. There is no focally increased activity or defect to suggest hyper- or hypofunctioning thyroid nodule. I-123 uptake less intense than that of normal thyroid tissue is seen inferior to the left lobe of the thyroid gland is visualized; this uptake corresponds with the heterogeneously enhancing soft tissue masses inferior to the left lobe of thyroid gland seen on the outside CT images. IMPRESSION: 1. The thyroid gland intrinsically appears normal, with no hyper- of hypofunctioning nodules identified. 2. Mild I-123 uptake inferior to the left lobe corresponds to the soft tissue masses seen on CT images. These masses appear separate from the thyroid gland itself and thus are not likely to represent hypofunctioning components of a multinodular thyroid extending into the upper mediastinum; the normal appearance of the remainder of thyroid gland also argues against this. True ectopic thyroid tissue with degenerative changes is a possibility. More likely, even though uncommon when the thyroid is intact, these lesions could represent functioning metastatic lesions from a primary thyroid carcinoma, which is not itself seen on the scintigraphic or CT images. The findings, conclusions and recommendations within this report do not replace the initial findings, conclusions and recommendations made at the facility where the study was performed based upon the imaging and clinical condition at that time. Comparison with the prior report and clinical history is necessary. The provided images may or may not represent the [place] data set and thus may contain changes that may lower the accuracy of this second-opinion interpretation. :: Requested By: Dictated By: LISA RENAE M.D. on Jul 21 2014 3:23P This document has been electronically signed by: CASSANDRA RIVAS M.D. on Jul 21 2014 5:05P [id number] us Historical Provider MD ALEX NM PROCEDURES Final R esult * XR Interpretation Of Outside Films (07/21/2014 1:00 PM CDT) Anatomical Region Laterality Modality N/A Radiographic Maryan ging 07/21/2014 1:00 PM CDT Narrative 07/22/2014 10:16 PM CDT TRISTIN HALL M.D. EDWARD CHOI, FINAL REPORT The radiology attending physician has personally reviewed this study, and has reviewed and/or edited this written report and agrees with it. ACC# ??Date Time ??Exam [id number] Jul 21, 2014 13:00:00 [id number] [facility] Neuro Consult ACC# ??Date Time ??Exam [id number] Jul 21, 2014 13:00:00 [id number] [facility] Neuro Consult EXAMINATION: ?? RADIOLOGY CONSULTATION ON OUTSIDE IMAGING STUDY STUDY INITIALLY PERFORMED: ??On 06/10/[address] [facility]. ?? TYPE OF STUDY: Multiple CT images of the neck with intravenous contrast are provided at the time of this interpretation. The protocol was adequate to address the clinical question. ??The outside final report was provided at the time of this second opinion. TYPE OF CONSULTATION: ??Consult on outside imaging study with images submitted through [facility] DATE OF CONSULTATION: 07/21/2014 REASON FOR CONSULTATION: 59-year-old man with chronic cough and multiple neck masses identified on neck CT. COMPARISON: No prior studies available for comparison. FINDINGS: Within the superior mediastinum, there is a 4.3 cm x 2.3 cm heterogeneously enhancing mass just medial to the left common carotid artery. A second smaller mass is seen just medial to this, measuring 1.7 cm x 1.3 cm. No other masses are seen. The masses are located immediately inferior to the thyroid gland, but appear to have a fat plane them from the thyroid gland. The larger mass exerts mass effect on the left common carotid artery and left brachiocephalic vein, but does not cause stenosis. There are additional, scattered, subcentimeter lymph nodes in the neck. The muscles of the neck are normal. ??Fascial planes are preserved and the deep spaces of the neck are otherwise normal. ?? The visualized airway is widely patent. ?? The base of the skull and the temporal bones are normal. The limited examination of the brain to include the cerebellum and brainstem is normal. The limited view of the [place] is unremarkable. The visualized portions of the orbits are normal. There are postoperative changes of instrumented anterior cervical discectomy and fusion from C4 through C6. No spinal canal stenosis. Limited examination of the superior thorax shows no pulmonary infiltrate, suspicious nodules, or pleural effusions. ?? IMPRESSION: ?? 1. Two heterogeneously enhancing masses in the superior mediastinum inferior to the left thyroid lobe, the largest of which measures 4.3 cm x 2.3 cm. A fat plane separates these masses from the thyroid on the coronal and sagittal reformations. Differential considerations would include parathyroid adenoma versus lymphadenopathy. ??On the axial images, it is difficult to separate these lesions from the thyroid gland. The findings, conclusions and recommendations within this report do not replace the initial findings, conclusions ??and recommendations made at the facility where the study was performed based upon the imaging and clinical condition at that time. ??Comparison with the prior report and clinical history is necessary. ??The provided images may or may not represent the [place] data set and thus may contain changes that may lower the accuracy of this second-opinion interpretation. ?? Requested By: Dictated By: ?? EDWARD CHOI, ?? on Jul 21 2014 ??3:33P This document has been electronically signed by: TRISTIN HALL M.D. on Jul 22 2014 10:15P [id number] Procedure Note Provider, MD Chiqui - 02/22/2017 TRISTIN HALL M.D. EDWARD CHOI, FINAL REPORT The radiology attending physician has personally reviewed this study, and has reviewed and/or edited this written report and agrees with it. ACC# Date Time Exam [id number] Jul 21, 2014 13:00:00 [id number] [facility] Neuro Consult ACC# Date Time Exam [id number] Jul 21, 2014 13:00:00 [id number] [facility] Neuro Consult EXAMINATION: RADIOLOGY CONSULTATION ON OUTSIDE IMAGING STUDY STUDY INITIALLY PERFORMED: On 06/10/[address] [facility]. TYPE OF STUDY: Multiple CT images of the neck with intravenous contrast are provided at the time of this interpretation. The protocol was adequate to address the clinical question. The outside final report was provided at the time of this second opinion. TYPE OF CONSULTATION: Consult on outside imaging study with images submitted through [facility] DATE OF CONSULTATION: 07/21/2014 REASON FOR CONSULTATION: 59-year-old man with chronic cough and multiple neck masses identified on neck CT. COMPARISON: No prior studies available for comparison. FINDINGS: Within the superior mediastinum, there is a 4.3 cm x 2.3 cm heterogeneously enhancing mass just medial to the left common carotid artery. A second smaller mass is seen just medial to this, measuring 1.7 cm x 1.3 cm. No other masses are seen. The masses are located immediately inferior to the thyroid gland, but appear to have a fat plane them from the thyroid gland. The larger mass exerts mass effect on the left common carotid artery and left brachiocephalic vein, but does not cause stenosis. There are additional, scattered, subcentimeter lymph nodes in the neck. The muscles of the neck are normal. Fascial planes are preserved and the deep spaces of the neck are otherwise normal. The visualized airway is widely patent. The base of the skull and the temporal bones are normal. The limited examination of the brain to include the cerebellum and brainstem is normal. The limited view of the [place] is unremarkable. The visualized portions of the orbits are normal. There are postoperative changes of instrumented anterior cervical discectomy and fusion from C4 through C6. No spinal canal stenosis. Limited examination of the superior thorax shows no pulmonary infiltrate, suspicious nodules, or pleural effusions. IMPRESSION: 1. Two heterogeneously enhancing masses in the superior mediastinum inferior to the left thyroid lobe, the largest of which measures 4.3 cm x 2.3 cm. A fat plane separates these masses from the thyroid on the coronal and sagittal reformations. Differential considerations would include parathyroid adenoma versus lymphadenopathy. On the axial images, it is difficult to separate these lesions from the thyroid gland. The findings, conclusions and recommendations within this report do not replace the initial findings, conclusions and recommendations made at the facility where the study was performed based upon the imaging and clinical condition at that time. Comparison with the prior report and clinical history is necessary. The provided images may or may not represent the [place] data set and thus may contain changes that may lower the accuracy of this second-opinion interpretation. Requested By: Dictated By: EDWARD CHOI on Jul 21 2014 3:33P This document has been electronically signed by: TRISTIN HALL M.D. on Jul 22 2014 10:15P [id number] us Historical Provider MD ALEX XR PROCEDURES Final R esult * Discharge Laboratory Cumulative Report (07/10/2014 5:22 PM CDT) 07/10/2014 5:22 PM CDT Narrative HISTORICAL RESULTS - 07/10/2014 5:22 PM CDT ? [facility] ? Department of Laboratories ? [facility] ? [place] ?[facility] [address] ?Private Outpatient ?Private ? Physician ? Office Patient Name: ? LIBERTAD LORENZO [facility] Rec Number: ?? [id number] Date of : ?1955 Gender/Age: ? Male 59 years Doctor: ? Bandar Irving M.D. Report Date/Time: 07/10/2014 17:22 ?* Abnormal ??C Critical ??f Footnote ??^ Corrected ??L Low ??H High ?i Interp Data ??@ Reference Lab ?Chart Type: Cumulative ? CHEMISTRY ? Standard Blood Chemistry ? 07/10/2014 ??07/10/2014 ? 15:43:00 ?12:34:00 Test ? Units ??Reference Glucose POC ??94 ?103 ? mg/dL ??70-199 Historical Provider MD LAB BLOOD ORDERABLES Noemi l Result Performing Organization Address [facility] de Phone Number HISTORICAL RESULTS * Blood glucose, POC (07/10/2014 3:43 PM CDT) Pathologist [facility] Glucose, POC, bld 94 70 - 199 mg/dl HISTORICAL RESULTS Blood specimen (specimen) 07/10/2014 3:43 PM CDT Bandar Irving MD LAB BLOOD ORDERABLES Fin al Result Performing Organization Address [facility] Co de Phone Number HISTORICAL RESULTS * Blood glucose, POC (07/10/2014 12:34 PM CDT) Pathologist [facility] Glucose, POC, bld 103 70 - 199 mg/dl HISTORICAL RESULTS Blood specimen (specimen) 07/10/2014 12:34 PM CDT Bandar Irving MD LAB BLOOD ORDERABLES Fin al Result HISTORICAL RESULTS * Cytology (07/10/2014) Narrative 07/10/2014 Ordered by an unspecified provider. Historical Provider LAB CYTOLOGY ORDERABLES F inal Result documented in this encounter Visit Diagnoses Diagnosis Swelling, mass, or lump in head and neck Essential hypertension Unspecified essential hypertension Other abnormal glucose Esophageal reflux Arthropathy Unspecified arthropathy, site unspecified Personal history of tobacco use, presenting hazards to health Allergy to insects and arachnids Encounter for long-term (current) use of aspirin Encounter for long-term (current) use of other medications Family history of ischemic heart disease documented in this encounter Care Teams Section Maintainer Relationship Specialty Start Date End Date Dale Funes MD [address] [address] PCP - General 07/08/09 06/24/19 documented as of this encounter
--- OUTSIDE RECORDS SUMMARY | 2024-11-03 20:15 | XMS_ITS | Encounter Summary ---
Author Organization [facility] Facility Care Team Providers Care Dean Of Education Name Role Phone Dale Funes MD Primary Care Provider [phone] Encounter Details Date Type Department Care Team (Late st Contact Info) Description 08/12/2014 Hospital Encounter [facility] Jose C Abad MD [address] [place] [address] Enlarged lymph nodes; Other specified pre-operative examination Social History Tobacco Use Types Packs/Day Years Used Date Smoking Tobacco: Former Sex and Gender Information Value Date Recorded Sex Assigned at Not on file 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 Gender Identity Not on file Sexual Orientation Not on file documented as of this encounter Plan of Treatment Not on file documented as of this encounter Procedures Procedure Name Priority Date/Time Associated Diagnosis Comments DISCHARGE LABORATORY CUMULATIVE REPORT Routine 08/15/2014 9:07 AM CDT BLOOD GLUCOSE, POC Routine 08/12/2014 4: 39 PM CDT BLOOD GLUCOSE, POC Routine 08/12/2014 11 :23 AM CDT US SOFT TISSUE HEAD NECK Routine 08/12/2014 10:52 AM CDT SURGICAL PATHOLOGY 08/12/2014 documented in this encounter Results * Discharge Laboratory Cumulative Report (08/15/2014 9:07 AM CDT) 08/15/2014 9:07 AM CDT Narrative HISTORICAL RESULTS - 08/15/2014 9:07 AM CDT ? [facility] ? Department of Laboratories ? [facility] ? [place] [address] ?[facility] ?Outpatient ?Physician ? Patient Name: ? LIBERTAD LORENZO Med Rec Number: ?? [id number] Date of : ?1955 Gender/Age: ? Male 59 years Doctor: ? Jose C Abad M.D. Report Date/Time: 08/15/2014 09:07 ?* Abnormal ??C Critical ??f Footnote ??^ Corrected ??L Low ??H High ?i Interp Data ??@ Reference Lab ?Chart Type: Cumulative ? CHEMISTRY ? Standard Blood Chemistry ? 08/12/2014 ??08/12/2014 ? 16:39:00 ?11:23:00 Test ? Units ??Reference Glucose POC ??105 ? 107 ? mg/dL ??70-199 us Historical Provider MD LAB BLOOD ORDERABLES Noemi l Result Performing Organization Address [facility] de Phone Number HISTORICAL RESULTS * Blood glucose, POC (08/12/2014 4:39 PM CDT) Glucose, POC, bld 105 70 - 199 mg/dl HISTORICAL RESULTS Blood specimen (specimen) 08/12/2014 4:39 PM CDT Jose C Abad MD LAB BLOOD ORDERABLES Fi nal Result Performing Organization Address [facility] Phone Number HISTORICAL RESULTS * Blood glucose, POC (08/12/2014 11:23 AM CDT) Glucose, POC, bld 107 70 - 199 mg/dl HISTORICAL RESULTS Blood specimen (specimen) 08/12/2014 11:23 AM CDT Jose C Abad MD LAB BLOOD ORDERABLES Fi nal Result Performing Organization Address [facility] de Phone Number HISTORICAL RESULTS * US Soft Tissue Neck (08/12/2014 10:52 AM CDT) Anatomical Region Laterality Modality Head and Neck N/A Ultrasound 08/12/2014 10:5 2 AM CDT Narrative 08/12/2014 4:59 PM CDT CLAUDETTE WOODS M.D. KEMI TOVAR FINAL REPORT The radiology attending physician has personally reviewed this study, and has reviewed and/or edited this written report and agrees with it. ACC# ??Date Time ??Exam [id number] Aug 12, 2014 10:52:00 14171 Neck Ultrasound EXAMINATION: ?? NECK SONOGRAM HISTORY: ??59-year-old male here for neck marking prior to surgery. FINDINGS: ?? There are benign appearing lymph nodes along both internal jugular chains. ??No abnormal lymph nodes are identified in the left or right lateral neck. The known largest lymph node in the superior mediastinum is visualized and measures 4.1 x 2.3 x 2.9 cm. IMPRESSION: ?No abnormal lymph nodes visualized. No lymph nodes marked prior to surgery. Requested By: Dictated By: ?? KEMI TOVAR ??on Aug 12 2014 11:13A This document has been electronically signed by: CLAUDETTE WOODS M.D. on Aug 12 2014 ??4:59P Procedure Note Provider, MD Chiqui - 02/22/2017 CLAUDETTE WOODS M.D. KEMI TOVAR FINAL REPORT The radiology attending physician has personally reviewed this study, and has reviewed and/or edited this written report and agrees with it. ACC# Date Time Exam [id number] Aug 12, 2014 10:52:00 14069 Neck Ultrasound EXAMINATION: NECK SONOGRAM HISTORY: 59-year-old male here for neck marking prior to surgery. FINDINGS: There are benign appearing lymph nodes along both internal jugular chains. No abnormal lymph nodes are identified in the left or right lateral neck. The known largest lymph node in the superior mediastinum is visualized and measures 4.1 x 2.3 x 2.9 cm. IMPRESSION: No abnormal lymph nodes visualized. No lymph nodes marked prior to surgery. Requested By: Dictated By: KEMI TOVAR on Aug 12 2014 11:13A This document has been electronically signed by: CLAUDETTE WOODS M.D. on Aug 12 2014 4:59P us Historical Provider MD ALEX US PROCEDURES Final R esult * Surgical pathology (08/12/2014) Narrative 08/12/2014 Ordered by an unspecified provider. us Historical Provider LAB PATHOLOGY ORDERABLES Final Result documented in this encounter Visit Diagnoses Diagnosis Enlarged lymph nodes Enlargement of lymph nodes Other specified pre-operative examination documented in this encounter Care Teams Dean Of Education Relationship Specialty Start Date End Date Dale Funes MD [address] [address] PCP - General 07/08/09 06/24/19 documented as of this encounter
--- OUTSIDE RECORDS SUMMARY | 2024-11-03 20:15 | XMS_ITS | Encounter Summary ---
Author Organization [facility] Facility Care Team Providers Care Military Technology Specialist Name Role Phone Unavailable Primary Care Provider Unavailabl e Encounter Details Date Type Department Care Team (Late st Contact Info) Description 03/12/2008 10:04 AM CDT - 03/12/2008 11:59 PM CDT Hospital Encounter [facility] Theo Allison MD [address] [place] [id number] Social History Tobacco Use Types Packs/Day Years Used Date Smoking Tobacco: Never Assessed Sex and Gender Information Value Date Recorded Sex Assigned at Not on file 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
--- OUTSIDE RECORDS SUMMARY | 2024-11-03 20:15 | XMS_ITS | Encounter Summary ---
Author Organization [facility] Facility Care Team Providers Care Forest Patrolman Name Role Phone Dale Funes MD Primary Care Provider [phone] Encounter Details Date Type Department Care Team (Late st Contact Info) Description 07/31/2014 1:20 PM CDT - 07/31/2014 4:00 PM CDT Hospital Encounter [facility] Jose C Hammonds MD [address] [place] [address] Other specified pre-operative examination; Pre-procedural laboratory examination; Goiter; Essential hypertension; Type 2 or unspecified type diabetes mellitus; Asthma; Obesity; Esophageal reflux; Family history of other cardiovascular diseases; Personal history of tobacco use, presenting hazards to health; Encounter for long-term (current) use of other medications Social History Tobacco Use Types Packs/Day Years Used Date Smoking Tobacco: Former Sex and Gender Information Value Date Recorded Sex Assigned at Not on file 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 Gender Identity Not on file Sexual Orientation Not on file documented as of this encounter Plan of Treatment Not on file documented as of this encounter Procedures Procedure Name Priority Date/Time Associated Diagnosis Comments PLASMA BASIC METABOLIC PANEL Routine 07/31/2014 2:49 PM CDT DISCHARGE LABORATORY CUMULATIVE REPORT Routine 07/31/2014 12:00 AM CDT documented in this encounter Results * Plasma basic metabolic panel (07/31/2014 2:49 PM CDT) Sodium 144 135 - 145 mmol/L HISTORICAL RESULTS K, pl 4.8 3.3 - 4.9 mmol/L HISTORICAL RESULTS Chloride 108 97 - 110 mmol/L HISTORICAL RESULTS CO2 27 22 - 32 mmol/L HISTORICAL RESULTS A. gap 9 0 - 16 mmol/L HISTORICAL RESULTS Glucose 73 70 - 199 mg/dl HISTORICAL RESULTS BUN 16 8 - 25 mg/dl HISTORICAL RESULTS Creatinine 1.09 0.70 - 1.30 mg/dl HISTORICAL RESULTS Calcium 9.6 8.6 - 10.3 mg/dl HISTORICAL RESULTS Plasma 07/31/2014 2:49 PM CDT us Historical Provider LAB BLOOD ORDERABLES Noemi pham Result HISTORICAL RESULTS * Discharge Laboratory Cumulative Report (07/31/2014 12:00 AM CDT) 07/31/2014 Narrative HISTORICAL RESULTS - 07/31/2014 7:23 PM CDT ?[facility] ?Department of Laboratories ? [facility] [place] ? [place] [address] Patient Name: ??LIBERTAD LORENZO Rec Number: [id number] Fin Number: ?[id number] Date: ?1955 Sex/Age: ? Male 59 years Admit Date: ?07/31/2014 Discharge Date: 07/31/2014 Doctor: ?Jose C Abad Facility: ?[facility] Location: ?[facility] Chart Printed: 07/31/2014 19:23 ?? * Abnormal ?? C Critical ?? f Footnote ?? ^ Corrected ?? L Low ?? H High ? i Interp Data ?? @ Reference Lab ? Chart Type:Periodic ? SELECTED ELECTROLYTES ?Test: Sodium ? Plasma Potassium ??Chloride ? Reference: [135-145] ??[3.3-4.9] ? [97-110] ? Units: mmol/L ? mmol/L ?mmol/L 07/31/2014 ?? 14:49:00 ?? 144 ?4.8 ? 108 ?Test: Total CO2 ??Anion Gap ? Reference: [22-32] ?[0-16] ? Units: mmol/L ? mmol/L 07/31/2014 ?? 14:49:00 ?? 27 ? 9 ? STANDARD BLOOD CHEMISTRY ?Test: BUN ? Creatinine ?? Glucose ?? Total Calcium ? Reference: [8-25] ??[0.70-1.30] ??[70-199] ??[8.6-10.3] ? Units: mg/dL ?? mg/dL ?mg/dL ? mg/dL 07/31/2014 ?? 14:49:00 ?? 16 ?1.09 ? 73 ?9.6 us Historical Provider LAB BLOOD ORDERABLES Noemi l Result HISTORICAL RESULTS documented in this encounter Visit Diagnoses Diagnosis Other specified pre-operative examination Pre-procedural laboratory examination Goiter Goiter, unspecified Essential hypertension Unspecified essential hypertension Type 2 or unspecified type diabetes mellitus Asthma Unspecified asthma Obesity Obesity, unspecified Esophageal reflux Family history of other cardiovascular diseases Personal history of tobacco use, presenting hazards to health Encounter for long-term (current) use of other medications documented in this encounter Care Teams Forest Patrolman Relationship Specialty Start Date End Date Dale Funes MD [address] [address] PCP - General 07/08/09 06/24/19 documented as of this encounter
--- OUTSIDE RECORDS SUMMARY | 2024-11-03 20:15 | XMS_ITS | Encounter Summary ---
Author Organization [facility] Healthcare Address [address] [place] [address] Care Team Providers Care Art Coordinator Name Role Phone Unavailable Primary Care Provider Unavailabl e Encounter Details Date Type Department Care Team (Late st Contact Info) Description 03/15/2009 9:31 PM CDT - 03/15/2009 11:15 PM CDT Hospital Encounter [facility] Pedro Aquino MD [address] [place] [id number] Dale Funes MD [address] [address] Cellulitis and abscess of foot excluding toe; Plantar fascial fibromatosis Social History Tobacco Use Types Packs/Day Years Used Date Smoking Tobacco: Never Assessed Sex and Gender Information Value Date Recorded Sex Assigned at Not on file 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
--- OUTSIDE RECORDS SUMMARY | 2024-11-03 20:15 | XMS_ITS | Encounter Summary ---
Author Organization [facility] Facility Care Team Providers Care Lease Analyst Name Role Phone Unavailable Primary Care Provider Unavailabl e Encounter Details Date Type Department Care Team (Late st Contact Info) Description 03/03/2008 12:54 PM CDT - 03/08/2008 12:01 AM CDT Hospital Encounter [facility] Theo Allison MD [address] [place] [id number] Social History Tobacco Use Types Packs/Day Years Used Date Smoking Tobacco: Never Assessed Sex and Gender Information Value Date Recorded Sex Assigned at Not on file 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
--- OUTSIDE RECORDS SUMMARY | 2024-11-03 20:15 | XMS_ITS | Encounter Summary ---
Author Organization [facility] Address [address] [address] Care Team Providers Care Applications Engineer Manufacturing Name Role Phone No, Physician Primary Care Provider [phone] Dale Funes MD Unavailable [phone] Reason for Visit * Reason Comments COVID-19 EVALUATION sx onset 5-6 days ag o, feeling a lot better today. c/o sinus congestion and cough. Encounter Details Date Type Department Care Team (Late st Contact Info) Description 10/14/2021 3:15 PM FABRICATION INSPECTOR Office Visit [facility] [address] [place] [id number] Arnold Richardson NP [address] [place] [address] Acute nasopharyngitis Social History Tobacco Use Types Packs/Day Years Used Date Smoking Tobacco: Former Smokeless Tobacco: Never Alcohol Use Standard Drinks/Week Comments Yes 0 (1 standard drink = 0.6 oz pur e alcohol) PHQ-2 Answer Date Recorded PHQ-2 Total Score 1 05/21/2020 Sex and Gender Information Value Date Recorded Sex Assigned at Not on file Legal Sex Male 1:06 AM FABRICATION INSPECTOR Gender Identity Not on file Sexual Orientation Not on file documented as of this encounter Last Filed Vital Signs Vital Sign Reading Time Taken Comments Blood Pressure 146/80 10/14/2021 3:33 PM FABRICATION INSPECTOR Pulse 102 10/14/2021 3:33 PM FABRICATION INSPECTOR Temperature 37 ??C (98.6 ??F) 10/14/2021 3:33 PM FABRICATION INSPECTOR Respiratory Rate 16 10/14/2021 3:33 PM FABRICATION INSPECTOR Oxygen Saturation 97% 10/14/2021 3:33 PM FABRICATION INSPECTOR Inhaled Oxygen Concentration - - Weight 136.8 kg (301 lb 9.6 oz) 10/14/2021 3:33 PM FABRICATION INSPECTOR Height 185.4 cm (6' 1 ) 10/14/2021 3:33 PM FABRICATION INSPECTOR Body Mass Index 39.79 10/14/2021 3:33 PM FABRICATION INSPECTOR documented in this encounter Patient Instructions * Patient Instructions* Arnold Richardson, ROD POINTER - 10/14/2021 3:15 PM FABRICATION INSPECTOR Patient Education Cold Symptoms MARKET ASSET PROTECTION MANAGER: Cold symptoms include sneezing, dry throat, a stuffy nose, headache, watery eyes, and a cough. Yourcough may be dry, or you may cough up mucus. You may also have muscle aches, joint pain, and tiredness. Rarely, you may have a fever. Cold symptoms occur from inflammation in your upper respiratory system caused by a virus. Most colds go away without treatment. Seek care immediately if: ?? You have increased tiredness and weakness. ?? You are unable to eat. ?? Your heart is beating much faster than usual for you. ?? You see white spots in the back of your throat and your neck is swollen and sore to the touch. ?? You see pinpoint or larger reddish-purple dots on your skin. Contact your healthcare provider if: ?? You have a fever higher than 102??F (38.9??C). ?? You have new or worsening shortness of breath. ?? You have thick nasal drainage for more than 2 days. ?? Your symptoms do not improve or get worse within 5 days. ?? You have questions or concerns about your condition or care. Treatment for cold symptoms may include NSAIDS to decrease muscle aches and fever. Cold medicines may also be given to decrease coughing, nasal stuffiness, sneezing, and a runny nose. Manage your cold symptoms: The following may help relieve cold symptoms, such as a dry throat and congestion: ?? Gargle with mouthwash or warm salt water as directed. ?? Suck on throat lozenges or hard candy. ?? Use a cold or warm vaporizer or humidifier to ease your breathing. ?? Rest for at least 2 days and then as needed to decrease tiredness and weakness. ?? Use petroleum based jelly around your nostrils to decrease irritation from blowing your nose. ?? Drink plenty of liquids. Liquids will help thin and loosen thick mucus so you can cough it up. Liquids will also keep you hydrated. Ask your healthcare provider which liquids are best for you and how much to drink each day. Prevent the spread of germs by washing your hands often. You can spread your cold germs to others for at least 3 days after your symptoms start. Do not share items, such as eating utensils. Cover your nose and mouth when you cough or sneeze using the crook of your elbow instead of your hands. Throwused tissues in the garbage. Do not smoke: Smoking may worsen your symptoms and increase the length of time you feel sick. Talk with your healthcare provider if you need help to stop smoking. Follow up with your healthcare provider as directed: Write down your questions so you remember to ask them during your visits. ?? 2017 [employer] Information is for End User's use only and may not be sold, redistributed or otherwise used for commercial purposes. All illustrations and images included in CareNotes?? are the copyrighted property of [employer], [employer]. or [employer]. The above information is an psychological aide only. It is not intended as medical advice for individual conditions or treatments. Talk to your doctor, nurse or pharmacist before following any medical regimen to see if it is safe and effective for you. ICATION INSPECTOR documented in this encounter Ordered Prescriptions Prescription Sig Dispense Quantity Refills Last Filled Start Date End Date methylPREDNISolone (Medrol, Heriberto,) 4 mg DosepackIndications: Acute nasopharyngitis follow package directions 1 packet 10/14/2021 documented in this encounter Progress Notes * Arnold Richardson NP - 10/14/2021 3:15 PM CST Images from the original note were not included. Subjective/Objective Patient: Teo Martienz is a 66 y.o. male followed by No, Physician Chief Complaint Patient presents with ??? COVID-19 EVALUATION sx onset 5-6 days ago, feeling a lot better today. c/o sinus congestion and cough. Teo Martinez presents to clinic with c/o cough, congestion, diarrhea x 4-5 days. States symptoms have largely resolved today. States he has been having bouts of diarrhea, but reports eating 'junk food' and 'eating out daily.' States diarrhea is 'not new.' History significant to COVID includes: obesity, thyroid disease, >65 y/o. Denies exposure to COVID-19. Endorses COVID inoculation and booster. Denies having previous history of COVID diagnosis. Attempted Mucinex OTC prior to arrival for symptom alleviation with some relief. Denies the following: GI symptoms: nausea, vomiting, abdominal pain Respiratory symptoms: shortness of breath, chest discomfort, rhinorrhea, sore throat Generalized symptoms of infection: fever, excessive fatigue, generalized malaise, headache, ear ache Review of Systems Constitutional: Negative for chills and fever. HENT: Positive for congestion. Negative for ear pain, rhinorrhea, sinus pressure, sinus pain, sneezing and sore throat. Eyes: Negative. Respiratory: Positive for cough. Negative for chest tightness, shortness of breath and wheezing. Cardiovascular: Negative for chest pain. Gastrointestinal: Positive for diarrhea. Negative for constipation, nausea and vomiting. Endocrine: Negative. Genitourinary: Negative. Musculoskeletal: Negative for arthralgias and myalgias. Skin: Negative. Allergic/Immunologic: Negative for environmental allergies. Neurological: Negative for headaches. Hematological: Negative for adenopathy. Psychiatric/Behavioral: Negative. Physical Exam Vitals and nursing note reviewed. Constitutional: Appearance: Normal appearance. He is obese. He is not ill-appearing. HENT: Head: Normocephalic and atraumatic. Right Ear: Tympanic membrane, ear canal and external ear normal. Left Ear: Tympanic membrane, ear canal and external ear normal. Nose: Right Sinus: Maxillary sinus tenderness and frontal sinus tenderness present. Left Sinus: Maxillary sinus tenderness and frontal sinus tenderness present. Mouth/Throat: Lips: [place]. Mouth: Mucous membranes are moist. Pharynx: Oropharynx is clear. Cardiovascular: Rate and Rhythm: Normal rate and regular rhythm. Heart sounds: Normal heart sounds, S1 normal and S2 normal. Pulmonary: Effort: Pulmonary effort is normal. Breath sounds: Normal breath sounds and air entry. Musculoskeletal: General: Normal range of motion. Cervical back: Neck supple. Skin: General: Skin is warm and dry. Neurological: General: No focal deficit present. Mental Status: He is alert and oriented to person, place, and time. Psychiatric: Mood and Affect: Mood normal. Behavior: Behavior normal. Behavior is cooperative. Vitals: 10/14/21 1533 BP: 146/80 BP Location: Left arm Patient Position: Sitting Pulse: 102 Resp: 16 Temp: 37 ??C (98.6 ??F) TempSrc: Oral SpO2: 97% Weight: (!) 136.8 kg (301 lb 9.6 oz) Height: 185.4 cm (6' 1 ) Social History Tobacco Use Smoking Status Former Smoker Smokeless Tobacco Never Used Assessment/Plan Diagnoses and all orders for this visit: Acute nasopharyngitis (Primary) - POC Influenza A/B, COVID-19 antigen - methylPREDNISolone (Medrol, Heriberto,) 4 mg Dosepack; follow package directions Orders Placed This Encounter Procedures ??? POC Influenza A/B, COVID-19 antigen Order Specific Question: Is the Patient experiencing symptoms consistent with COVID? Answer: Yes Order Specific Question: Date of Symptom Onset Answer: 10/09/2021 Order Specific Question: Is the patient hospitalized? Answer: No Order Specific Question: Is the patient admitted to an ICU? Answer: No Order Specific Question: Does the patient currently work in a healthcare facility with direct patient contact? Answer: No Order Specific Question: Is the patient a resident of a congregate care or living setting? Answer: No Order Specific Question: Is this the first COVID-19 test for this patient? Answer: Yes Results for orders placed or performed in visit on 10/14/21 POC Influenza A/B, COVID-19 antigen Result Value Ref Range Inflenza A Ag, POC Negative Influenza B Ag, POC Negative COVID-19 Ag POC Presumptive Negative Presumptive Negative, Invalid # acute nasopharyngitis, improving --ddx: likely 2/2 environmental allergies v streptococcal bacteria --start prednisone --defer pharmacological treatment with abx at this time --COVID PCR, pending --encouraged low fat, low salt diet --start tessalon --salt water gargles --antihistamine wwo decongestant pending symptoms --tylenol/motrin for pain/fever --diet as tolerated --ED presentation with one or more of the following symptoms: fever uncontrolled with antipyretics,shortness of breath, chest discomfort, uncontrolled n/v/d --f/u with PCP after completion of abx if symptoms persist Patient Instructions: Patient Education Cold Symptoms MARKET ASSET PROTECTION MANAGER: Cold symptoms include sneezing, dry throat, a stuffy nose, headache, watery eyes, and a cough. Yourcough may be dry, or you may cough up mucus. You may also have muscle aches, joint pain, and tiredness. Rarely, you may have a fever. Cold symptoms occur from inflammation in your upper respiratory system caused by a virus. Most colds go away without treatment. Seek care immediately if: ?? You have increased tiredness and weakness. ?? You are unable to eat. ?? Your heart is beating much faster than usual for you. ?? You see white spots in the back of your throat and your neck is swollen and sore to the touch. ?? You see pinpoint or larger reddish-purple dots on your skin. Contact your healthcare provider if: ?? You have a fever higher than 102??F (38.9??C). ?? You have new or worsening shortness of breath. ?? You have thick nasal drainage for more than 2 days. ?? Your symptoms do not improve or get worse within 5 days. ?? You have questions or concerns about your condition or care. Treatment for cold symptoms may include NSAIDS to decrease muscle aches and fever. Cold medicines may also be given to decrease coughing, nasal stuffiness, sneezing, and a runny nose. Manage your cold symptoms: The following may help relieve cold symptoms, such as a dry throat and congestion: ?? Gargle with mouthwash or warm salt water as directed. ?? Suck on throat lozenges or hard candy. ?? Use a cold or warm vaporizer or humidifier to ease your breathing. ?? Rest for at least 2 days and then as needed to decrease tiredness and weakness. ?? Use petroleum based jelly around your nostrils to decrease irritation from blowing your nose. ?? Drink plenty of liquids. Liquids will help thin and loosen thick mucus so you can cough it up. Liquids will also keep you hydrated. Ask your healthcare provider which liquids are best for you and how much to drink each day. Prevent the spread of germs by washing your hands often. You can spread your cold germs to others for at least 3 days after your symptoms start. Do not share items, such as eating utensils. Cover your nose and mouth when you cough or sneeze using the crook of your elbow instead of your hands. Throwused tissues in the garbage. Do not smoke: Smoking may worsen your symptoms and increase the length of time you feel sick. Talk with your healthcare provider if you need help to stop smoking. Follow up with your healthcare provider as directed: Write down your questions so you remember to ask them during your visits. ?? 2017 [employer] Information is for End User's use only and may not be sold, redistributed or otherwise used for commercial purposes. All illustrations and images included in CareNotes?? are the copyrighted property of [employer]. or [employer]. The above information is an psychological aide only. It is not intended as medical advice for individual conditions or treatments. Talk to your doctor, nurse or pharmacist before following any medical regimen to see if it is safe and effective for you. Brief: Treatment plan including expectations, follow up, and return precautions discussed with patient/parent, verbalizes understanding. Medication dosage, use, and potential adverse reactions discussed with patient/parent. Advised to follow up with PCP if symptoms do not resolve as expected or sooner if condition worsens. Signs/symptoms warranting ER evaluation reviewed. Patient and/or guardian was given an opportunity to ask questions, questions answered. ??? Patient was wearing the following PPE: mask. ??? Provider wearing the following PPE: mask, gown, gloves, face shield. Arnold Richardson NP ICATION INSPECTOR ICATION INSPECTOR documented in this encounter Miscellaneous Notes * Addendum Note - Arnold Richardson NP - 10/14/2021 3:15 PM CSTAddended by: ARNOLD RICHARDSON on: 10/14/2021 04:11 PM Modules accepted: Orders ICATION INSPECTOR * Addendum Note - Amy Resendiz MA - 10/14/2021 3:15 PM CSTAddended by: AMY RESENDIZ on: 10/14/2021 04:11 PM Modules accepted: Orders ICATION INSPECTOR documented in this encounter Plan of Treatment Not on file documented as of this encounter Procedures Procedure Name Priority Date/Time Associated Diagnosis Comments POC INFLUENZA A/B, COVID-19 ANTIGEN Routine 10/14/2021 4:04 PM FABRICATION INSPECTOR Acute nasopharyngitis documented in this encounter Results * COVID-19 Coronavirus RNA Nasopharyngeal (10/14/2021 4:11 PM FABRICATION INSPECTOR) Pathologist [facility] COVID-19 RNA Negative Negative [employer] Employeed in healthcare? No [employer] Group care resident? No [facility] Hospitalized? No [facility] Is patient in ICU? No [facility] Symptomatic as defined by CDC? Yes [facility] Nasopharyngeal 10/14/2021 4: 11 PM FABRICATION INSPECTOR 10/14/2021 10:19 PM FABRICATION INSPECTOR Narrative [facility] - 10/14/2021 11:27 PM FABRICATION INSPECTOR What is the reason for testing?->Symptoms of COVID-19 in high-risk group Date of Symptom Onset->10/09/21 us Arnold Richardson NP LAB MICROBIOLOGY - GENERAL ORDERABLES Final Result [facility] [address] Department [place] [address] * POC Influenza A/B, COVID-19 antigen (10/14/2021 4:04 PM FABRICATION INSPECTOR) Influenza A Ag, POC Negative [facility] Influenza B Ag, POC Negative [facility] [place] COVID-19 Ag POC Presumptive Negative Presumptive Negative, Invalid [facility] [place] Nasal 10/14/2021 4:04 PM FABRICATION INSPECTOR us Arnold Richardson ROD POINTER POINT OF CARE TEST ORDERABL ES Final Result [facility] [place] [address] [place] [address] documented in this encounter Visit Diagnoses Diagnosis Acute nasopharyngitis Acute nasopharyngitis (common cold) Acute nasopharyngitis Acute nasopharyngitis (common cold) documented in this encounter Additional Health Concerns Infection Onset Date Last Indicated Resolved Time COVID: Suspected 10/14/2021 10/14/2021 10/14/2021 4:05 PM FABRICATION INSPECTOR COVID: Suspected 10/14/2021 10/14/2021 10/14/2021 11:28 PM FABRICATION INSPECTOR documented as of this encounter Care Teams Applications Engineer Manufacturing Relationship Specialty Start Date End Date No, Physician PCP - General 06/25/19 03/06/23 Dale Funes MD [address] [address] 06/25/19 documented as of this encounter
--- OUTSIDE RECORDS SUMMARY | 2024-11-03 20:15 | XMS_ITS | Encounter Summary ---
Author Organization [facility] Facility Care Team Providers Care Harnessmaker Apprentice Name Role Phone Dale Funes MD Primary Care Provider [phone] Encounter Details Date Type Department Care Team (Late st Contact Info) Description 08/12/2014 7:56 AM CDT - 08/14/2014 10:13 AM CDT Hospital Encounter [facility] Jose C Hammonds MD [address] [place] [address] Goiter; Enlarged lymph nodes; Essential hypertension; Type 2 or unspecified type diabetes mellitus; Asthma; Obstructive sleep apnea; Esophageal reflux; Gout; Arthropathy; Hemorrhoids; Morbid obesity (HCC); Body mass index (BMI) of 40.0-44.9 in adult (HCC); History of recurrent pneumonia; Personal history of urinary calculi; Personal history of tobacco use, presenting hazards to health; Arthrodesis status; Other specified pre-operative examination Social History Tobacco Use Types Packs/Day Years Used Date Smoking Tobacco: Former Sex and Gender Information Value Date Recorded Sex Assigned at Not on file 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 Gender Identity Not on file Sexual Orientation Not on file documented as of this encounter Last Filed Vital Signs Vital Sign Reading Time Taken Comments Blood Pressure 138/88 08/14/2014 8:00 AM CDT Pulse 90 08/14/2014 8:00 AM CDT Temperature - - Respiratory Rate - - Oxygen Saturation 95% 08/14/2014 8:00 AM CDT Inhaled Oxygen Concentration - - Weight 133.8 kg (294 lb 15.6 oz) 08/13/2014 3:43 PM CDT Height 182.9 cm (6') 08/13/2014 3:43 PM CDT Body Mass Index 40.01 08/13/2014 3:43 PM CDT documented in this encounter Miscellaneous Notes * Op Note - Provider, MD Chiqui - 08/12/2014 12:00 AM CDT Patient: Libertad Lorenzo Reg No: [id number] [facility] #: [id number] Admit Dt.: 08/12/2014 : 1955 Pt Type: 200 Room No: OR Attending: Jose C Abad M.D. Surgeon: Jose C Abad M.D. Dictating: Jose C Abad M.D. Service Dt: 08/12/2014 OPERATIVE REPORT FIRST DIE CUTTER DIAMOND: Curtis Negro M.D. PREOPERATIVE DIAGNOSIS (ES): Enlarged left neck lymph nodes, worrisome for metastatic thyroid cancer. POSTOPERATIVE DIAGNOSIS (ES): Enlarged left neck lymph nodes, worrisome for metastatic thyroid cancer. NAME OF OPERATION: 1. Total thyroidectomy. 2. Left neck central neck dissection. 3. Resection of left superior mediastinal mass. INDICATIONS FOR PROCEDURE: Briefly this is a patient who presents with enlarged left neck lymph nodes. There is a concern that they may represent metastatic thyroid cancer based on the preliminary biopsy and diagnostic imaging evaluation. The risks and benefits of surgery were explained in detail to the patient and he desires to proceed. Informed consent was obtained. DESCRIPTION OF PROCEDURE: The patient was taken to the operating room and was placed on the operating room table in the supine position. General anesthesia was successfully induced. Intravenous antibiotics were not indicated. Mechanical DVT prophylaxis was in place. The patient was positioned in the lawn chair position with the neck extended and all pressure points padded. The neck was prepped and draped in the routine sterile fashion. A time out was performed to confirm patient identity and procedure to be performed. An incision was made in the low cervical position. This was extended down through the subcutaneous tissue and platysma muscle. Sub-platysmal flaps were raised. The strap muscles were divided in the midline. The right thyroid was dissected off the undersurface of the strap muscles and rotated medially. The superior pole vessels were individually ligated and divided. The superior parathyroid gland was identified and preserved. The inferior parathyroid gland was not definitively identified although the entirety of the thyrothymic ligament was preserved. The recurrent laryngeal nerve was identified, was dissected free of surrounding tissue to the insertion and preserved. The ligament of Vidales was individually ligated and divided. The inferior pole vessels were individually ligated and divided and the gland was mobilized off the trachea with the electrocautery device. Next attention was turned to the left neck. The left thyroid was dissected off the undersurface of the strap muscles and rotated medially. The superior pole vessels were individually ligated and divided. The recurrent laryngeal nerve was identified and dissected free of the surrounding tissue to the insertion and preserved. The superior parathyroid gland was identified and preserved. The inferior parathyroid gland was not definitively identified. The ligament of Vidales was individually ligated and divided and the inferior pole vessels were individually ligated and divided and the gland was mobilized off the trachea with the electrocautery device. The left central neck lymph nodes and superior mediastinal mass were resected en bloc, in essence with the thyroid gland. Of note, the superior mediastinal mass and enlarged lymph nodes looked like thyroid tissue, but it could not be determined if this was ectopic thyroid tissue or lymph nodes replaced by thyroid cancer. They were removed. Next attention was turned to closure. The wound was irrigated with copious amounts of sterile normal saline. Hemostasis was meticulously achieved and the wound was closed in layers with interrupted 3-0 Vicryl and a running 4-0 Monocryl. ESTIMATED BLOOD LOSS: Minimal. SPONGE/INSTRUMENT/NEEDLE COUNTS: Counts were correct. PRESENCE STATEMENT: I was present for the entire operation. Electronically Signed By Jose C Abad M.D. 08/13/2014 11:43 A Mireille Langford/shaun #[id number] Editing MT: TD: 08/12/2014 16:11:00 cc: Joes C Abad M.D. documented in this encounter Plan of Treatment Not on file documented as of this encounter Procedures Procedure Name Priority Date/Time Associated Diagnosis Comments DISCHARGE LABORATORY CUMULATIVE REPORT Routine 08/14/2014 12:00 AM CDT SERUM CALCIUM Routine 08/13/2014 11:20 PM CDT CHEST RADIOGRAPHY, FRONTAL (AP), LATERAL Routine 08/13/2014 1:26 PM CDT SERUM CALCIUM Routine 08/13/2014 11:32 AM CDT SERUM CALCIUM Routine 08/13/2014 3:40 AM CDT PLASMA PARATHYROID HORMONE (PTH), INTACT Routine 08/13/2014 3:40 AM CDT SERUM CALCIUM Routine 08/12/2014 8:57 PM CDT documented in this encounter Results * Discharge Laboratory Cumulative Report (08/14/2014 12:00 AM CDT) 08/14/2014 Narrative HISTORICAL RESULTS - 08/14/2014 11:20 AM CDT ?[facility] ?Department of Laboratories ? [facility] [place] ? [place] [address] Patient Name: ??LIBERTAD LORENZO [facility] Rec Number: [id number] Fin Number: ?[id number] Date: ?1955 Sex/Age: ? Male 59 years Admit Date: ?08/12/2014 Discharge Date: 08/14/2014 Doctor: ?Jose C Abad Facility: ?[facility] Location: ?[id number] Chart Printed: 08/14/2014 11:20 ?? * Abnormal ?? C Critical ?? f Footnote ?? ^ Corrected ?? L Low ?? H High ? i Interp Data ?? @ Reference Lab ?Chart Type:Cumulative ? STANDARD BLOOD CHEMISTRY ?Test: Total Calcium ? Reference: [8.6-10.3] ? Units: mg/dL 08/13/2014 ?? 23:20:00 ?? 8.8 08/13/2014 ?? 11:32:00 ?? 8.4 ??L 08/13/2014 ?? 03:40:00 ?? 8.6 08/12/2014 ?? 20:57:31 ?? 9.1 ?BLOOD HORMONES ?Test: Intact PTH ? Reference: [14-72] ? Units: pg/mL 08/13/2014 ?? 03:40:00 ?? 17 ? CANCELLED TESTS Date ?Time ?Test ? Cancel Reason 08/12/2014 ??20:00:00 ??Calcium 08/12/2014 ??20:29:00 ??Calcium us Historical Provider MD LAB BLOOD ORDERABLES Noemi l Result HISTORICAL RESULTS * Serum calcium (08/13/2014 11:20 PM CDT) Calcium 8.8 8.6 - 10.3 mg/dl HISTORICAL RESULTS Serum 08/13/2014 11:2 0 PM CDT Linsey Andrews POLICE LIAISON LAB BLOOD ORDERABLES Fin al Result HISTORICAL RESULTS * CHEST RADIOGRAPHY, FRONTAL (AP), LATERAL (08/13/2014 1:26 PM CDT) Anatomical Region Laterality Modality N/A Radiographic Maryan ging 08/13/2014 1:26 PM CDT Narrative 08/13/2014 2:56 PM CDT Mireille WRIGHT M.D. FINAL REPORT The radiology attending physician has personally reviewed this study, and has reviewed and/or edited this written report and agrees with it. ACC# ??Date Time ??Exam [id number] Aug 13, 2014 13:26:00 [id number] Chest 2 views Frontl & Lat ACC# ??Date Time ??Exam [id number] Aug 13, 2014 13:26:00 [id number] Chest 2 views Frontl & Lat EXAMINATION: ?CHEST 2 VIEWS ?? IMPRESSION: ?? No prior examination is available for comparison. There are small lung volumes bilaterally. There is mild left lung base atelectasis. There is no consolidation, effusion, or pneumothorax. The heart size is within normal limits. ??There is prominent mediastinal fat. There are changes from an instrumented cervical spinal fusion. ?? Requested By: LINSEY ANDREWS ACNP Dictated By: ?? NISHA GOMEZ M.D. ??on Aug 13 2014 ??2:21P This document has been electronically signed by: DEANN LOERA M.D. on Aug 13 2014 ??2:56P [id number] Procedure Note Provider, MD Chiqui - 02/22/2017 Mireille WRIGHT M.D. FINAL REPORT The radiology attending physician has personally reviewed this study, and has reviewed and/or edited this written report and agrees with it. ACC# Date Time Exam [id number] Aug 13, 2014 13:26:00 [id number] Chest 2 views Frontl & Lat ACC# Date Time Exam [id number] Aug 13, 2014 13:26:00 [id number] Chest 2 views Frontl & Lat EXAMINATION: CHEST 2 VIEWS IMPRESSION: No prior examination is available for comparison. There are small lung volumes bilaterally. There is mild left lung base atelectasis. There is no consolidation, effusion, or pneumothorax. The heart size is within normal limits. There is prominent mediastinal fat. There are changes from an instrumented cervical spinal fusion. Requested By: LINSEY ANDREWS ACN Dictated By: NISHA GOMEZ M.D. on Aug 13 2014 2:21P This document has been electronically signed by: DEANN LOERA M.D. on Aug 13 2014 2:56P [id number] Historical Provider IMG XR PROCEDURES Final R esult * (ABNORMAL) Serum calcium (08/13/2014 11:32 AM CDT) Calcium 8.4(L) 8.6 - 10.3 mg/dl HISTORICAL RESULTS Serum 08/13/2014 11:3 2 AM CDT Curtis Negro MD LAB BLOOD ORDERABLES Final R esult Performing Organization Address City/State/[facility] Co de Phone Number HISTORICAL RESULTS * Serum calcium (08/13/2014 3:40 AM CDT) Calcium 8.6 8.6 - 10.3 mg/dl HISTORICAL RESULTS Serum 08/13/2014 3:40 AM CDT Curtis Negro MD LAB BLOOD ORDERABLES Final R esult HISTORICAL RESULTS * Plasma parathyroid hormone (PTH), intact (08/13/2014 3:40 AM CDT) PTH, intact 17 14 - 72 pg/ml HISTORICAL RESULTS Plasma 08/13/2014 3:40 AM CDT Curtis Negro MD LAB BLOOD ORDERABLES Final R esult HISTORICAL RESULTS * Serum calcium (08/12/2014 8:57 PM CDT) Calcium 9.1 8.6 - 10.3 mg/dl HISTORICAL RESULTS Serum 08/12/2014 8:57 PM CDT Curtis Negro MD LAB BLOOD ORDERABLES Final R esult Performing Organization Address [facility] Co de Phone Number HISTORICAL RESULTS documented in this encounter Visit Diagnoses Diagnosis Goiter Goiter, unspecified Enlarged lymph nodes Enlargement of lymph nodes Essential hypertension Unspecified essential hypertension Type 2 or unspecified type diabetes mellitus Asthma Unspecified asthma Obstructive sleep apnea Obstructive sleep apnea (adult) (pediatric) Esophageal reflux Gout Gout, unspecified Arthropathy Unspecified arthropathy, site unspecified Hemorrhoids Morbid obesity (HCC) Morbid obesity Body mass index (BMI) of 40.0-44.9 in adult (HCC) History of recurrent pneumonia Personal history of pneumonia (recurrent) Personal history of urinary calculi Personal history of tobacco use, presenting hazards to health Arthrodesis status Other specified pre-operative examination documented in this encounter Care Teams Harnessmaker Apprentice Relationship Specialty Start Date End Date Dale Funes MD [address] [address] PCP - General 07/08/09 06/24/19 documented as of this encounter
--- OUTSIDE RECORDS SUMMARY | 2024-11-03 20:15 | XMS_ITS | Encounter Summary ---
Author Organization [facility] Healthcare Address [address] [place] [address] Care Team Providers Care Machined Parts Quality Inspector Name Role Phone aDle Funes MD Primary Care Provider [phone] [phone] Encounter Details Date Type Department Care Team (Late st Contact Info) Description 03/21/2019 Ancillary Procedure [facility] - Imaging [phone] Theo Waller MD [address] [facility] [address] [place] [address] Social History Tobacco Use Types Packs/Day Years Used Date Smoking Tobacco: Former Sex and Gender Information Value Date Recorded Sex Assigned at Not on file 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 us Theo Waller MD IMG CT PROCEDURES Final Resul t RAD_PACS_[facility] documented in this encounter Visit Diagnoses Not on filedocumented in this encounter Care Teams Machined Parts Quality Inspector Relationship Specialty Start Date End Date Dale Funes MD [address] [address] PCP - General 07/08/09 06/24/19 documented as of this encounter
--- OUTSIDE RECORDS SUMMARY | 2024-11-03 20:15 | XMS_ITS | Encounter Summary ---
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 Gender Identity Not on file Sexual Orientation Not on file documented as of this encounter Plan of Treatment Not on file documented as of this encounter Procedures Procedure Name Priority Date/Time Associated Diagnosis Comments OUSTIDE NEURO REFERENCE Routine 07/01/2014 2:58 PM CDT XR CONSULT OF OUTSIDE FILMS (PEDS ONLY) Routine 07/01/2014 2:52 PM CDT OUSTIDE NEURO REFERENCE Routine 07/01/2014 2:45 PM CDT documented in this encounter Results * OUSTIDE NEURO REFERENCE (07/01/2014 2:58 PM CDT) Anatomical Region Laterality Modality N/A Radiographic Maryan ging 07/01/2014 2:58 PM CDT Narrative 07/01/2014 3:14 PM CDT OUTSIDE IMAGES TRANSACTION ADVISORY SERVICES MANAGER, FINAL REPORT ACC# ??Date Time ??Exam [id number] Jul 01, 2014 14:52:00 [id number] [facility] Body CT Reference [id number] Jul 01, 2014 14:58:00 [id number] [facility] Neuro Reference EXAMINATION: ? Images For Reference Purposes Only IMPRESSION: ? These images are for Reference purposes only and have not been reviewed by [facility] Radiology. ??There will be no report generated by a [facility] Radiologist. Requested By: Dictated By: ?? OUTSIDE IMAGES TRANSACTION ADVISORY SERVICES MANAGER, ?? on Jun ??2013 ??3:14P This document has been electronically signed by: OUTSIDE IMAGES TRANSACTION ADVISORY SERVICES MANAGER, ??on Jun ??2013 ??3:14P [id number] Procedure Note Provider, Historical, - 02/22/2017 OUTSIDE IMAGES TRANSACTION ADVISORY SERVICES MANAGER, FINAL REPORT ACC# Date Time Exam [id number] Jul 01, 2014 14:52:00 [id number] [facility] Body CT Reference [id number] Jul 01, 2014 14:58:00 [id number] [facility] Neuro Reference EXAMINATION: Images For Reference Purposes Only IMPRESSION: These images are for Reference purposes only and have not been reviewed by [facility]iology. There will be no report generated by a [facility] Radiologist. Requested By: Dictated By: OUTSIDE IMAGES TRANSACTION ADVISORY SERVICES MANAGER, on Jul 01 2014 3:14P This document has been electronically signed by: OUTSIDE IMAGES TRANSACTION ADVISORY SERVICES MANAGER, on Jul 01 2014 3:14P [id number] us Historical Provider IMEnriqueta IR PROCEDURES Final R esult * XR Interpretation Of Outside Films (07/01/2014 2:52 PM CDT) Anatomical Region Laterality Modality N/A Radiographic Maryan ging 07/01/2014 2:52 PM CDT Narrative 07/01/2014 3:14 PM CDT OUTSIDE IMAGES TRANSACTION ADVISORY SERVICES MANAGER, FINAL REPORT ACC# ??Date Time ??Exam [id number] Jul 01, 2014 14:52:00 [id number] [facility] Body CT Reference [id number] Jul 01, 2014 14:58:00 [id number] [facility] Neuro Reference EXAMINATION: ? Images For Reference Purposes Only IMPRESSION: ? These images are for Reference purposes only and have not been reviewed by [facility] Radiology. ??There will be no report generated by a [facility] Radiologist. Requested By: Dictated By: ?? OUTSIDE IMAGES TRANSACTION ADVISORY SERVICES MANAGER, ?? on Jun ??2013 ??3:14P This document has been electronically signed by: OUTSIDE IMAGES TRANSACTION ADVISORY SERVICES MANAGER, ??on Jun ??2013 ??3:14P [id number] Procedure Note Provider, Chiqui, - 02/22/2017 OUTSIDE IMAGES TRANSACTION ADVISORY SERVICES MANAGER, FINAL REPORT ACC# Date Time Exam [id number] Jul 01, 2014 14:52:00 [id number] [facility] Body CT Reference [id number] Jul 01, 2014 14:58:00 [id number] [facility] Neuro Reference EXAMINATION: Images For Reference Purposes Only IMPRESSION: These images are for Reference purposes only and have not been reviewed by [facility] Radiology. There will be no report generated by a [facility] Radiologist. Requested By: Dictated By: OUTSIDE IMAGES TRANSACTION ADVISORY SERVICES MANAGER, on Jul 01 2014 3:14P This document has been electronically signed by: OUTSIDE IMAGES TRANSACTION ADVISORY SERVICES MANAGER, on Jul 01 2014 3:14P [id number] Historical Provider MD ALEX XR PROCEDURES Final R esult * OUSTIDE NEURO REFERENCE (07/01/2014 2:45 PM CDT) Anatomical Region Laterality Modality N/A Radiographic Maryan ging 07/01/2014 2:45 PM CDT Narrative 07/01/2014 2:52 PM CDT OUTSIDE IMAGES TRANSACTION ADVISORY SERVICES MANAGER, FINAL REPORT ACC# ??Date Time ??Exam [id number] Jul 01, 2014 14:45:00 [id number] [facility] Neuro Reference EXAMINATION: ? Images For Reference Purposes Only IMPRESSION: ? These images are for Reference purposes only and have not been reviewed by [facility] Radiology. ??There will be no report generated by a [facility] Radiologist. Requested By: Dictated By: ?? OUTSIDE IMAGES TRANSACTION ADVISORY SERVICES MANAGER, ?? on Jun ??2013 ??2:52P This document has been electronically signed by: OUTSIDE IMAGES TRANSACTION ADVISORY SERVICES MANAGER, ??on Jun ??2 2013 ??2:52P [id number] Procedure Note Provider, MD Chiqui - 02/22/2017 OUTSIDE IMAGES TRANSACTION ADVISORY SERVICES MANAGER, FINAL REPORT ACC# Date Time Exam [id number] Jul 01, 2014 14:45:00 [id number] [facility] Neuro Reference EXAMINATION: Images For Reference Purposes Only IMPRESSION: These images are for Reference purposes only and have not been reviewed by [facility] Radiology. There will be no report generated by a [facility] Radiologist. Requested By: Dictated By: OUTSIDE IMAGES TRANSACTION ADVISORY SERVICES MANAGER, on Jul 01 2014 2:52P This document has been electronically signed by: OUTSIDE IMAGES TRANSACTION ADVISORY SERVICES MANAGER, on Jul 01 2014 2:52P [id number] us Historical Provider IMEnriqueta IR PROCEDURES Final R esult documented in this encounter Visit Diagnoses Not on filedocumented in this encounter Care Teams Route Salesman Relationship Specialty Start Date End Date Dale Funes MD [address] [address] PCP - General 07/08/09 06/24/19 documented as of this encounter
--- OUTSIDE RECORDS SUMMARY | 2024-11-03 20:15 | XMS_ITS | Encounter Summary ---
Author Organization [facility] Facility Care Team Providers Care Toy Mechanic Name Role Phone Unavailable Primary Care Provider Unavailabl e Encounter Details Date Type Department Care Team (Late st Contact Info) Description 04/15/2008 4:30 PM CDT - 04/21/2008 12:01 AM CDT Hospital Encounter 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
--- OUTSIDE RECORDS SUMMARY | 2024-11-03 20:15 | XMS_ITS | Encounter Summary ---
Author Organization [facility] Healthcare Address [address] [place] [address] Care Team Providers Care Crime Prevention Worker Name Role Phone Dale Funes MD Primary Care Provider [phone] Encounter Details Date Type Department Care Team (Late st Contact Info) Description 12/06/2018 Ancillary Procedure [facility] - Imaging [phone] Theo Waller MD [address] [facility] [address] [place] [address] Social History Tobacco Use Types Packs/Day Years Used Date Smoking Tobacco: Former Sex and Gender Information Value Date Recorded Sex Assigned at Not on file 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 us Theo Waller MD IMG CT PROCEDURES Final Resul t RAD_PACS_[facility] documented in this encounter Visit Diagnoses Not on filedocumented in this encounter Care Teams Crime Prevention Worker Relationship Specialty Start Date End Date Dale Funes MD [address] [address] PCP - General 07/08/09 06/24/19 documented as of this encounter
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
--- OUTSIDE RECORDS SUMMARY | 2024-11-03 20:15 | XMS_ITS | Encounter Summary ---
Author Organization [facility] Healthcare Address [address] [place] [address] Care Team Providers Care Housekeeping Attendant Name Role Phone No, Physician Primary Care Provider [phone] Dale Funes MD Unavailable [phone] Encounter Details Date Type Department Care Team (Late st Contact Info) Description 10/17/2019 Ancillary Procedure [facility] - Imaging [phone] Theo Waller MD [address] [place] [address] Social History Tobacco Use Types Packs/Day Years Used Date Smoking Tobacco: Former Smokeless Tobacco: Never Alcohol Use Standard Drinks/Week Comments Yes 0 (1 standard drink = 0.6 oz pur e alcohol) PHQ-2 Answer Date Recorded PHQ-2 Score 6 07/31/2019 Sex and Gender Information Value Date Recorded Sex Assigned at Not on file 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 us Theo Waller MD IMG CT PROCEDURES Final Resul t RAD_PACS_[facility] documented in this encounter Visit Diagnoses Not on filedocumented in this encounter Care Teams Housekeeping Attendant Relationship Specialty Start Date End Date No, Physician PCP - General 06/25/19 03/06/23 Dale Funes MD [address] [address] 06/25/19 documented as of this encounter
--- OUTSIDE RECORDS SUMMARY | 2024-11-03 20:15 | XMS_ITS | Encounter Summary ---
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 Gender Identity Not on file Sexual Orientation Not on file documented as of this encounter Plan of Treatment Not on file documented as of this encounter Procedures Procedure Name Priority Date/Time Associated Diagnosis Comments PLASMA BASIC METABOLIC PANEL Routine 07/01/2014 4:22 PM CDT BLOOD HEMOGLOBIN A1C Routine 07/01/2014 4:22 PM CDT BLOOD CELL COUNT Routine 07/01/2014 4:22 PM CDT DISCHARGE LABORATORY CUMULATIVE REPORT Routine 07/01/2014 12:00 AM CDT documented in this encounter Results * (ABNORMAL) Blood hemoglobin A1C (07/01/2014 4:22 PM CDT) Hgb A1C 6.1(H) 4.0 - 6.0 % HISTORICAL RESULTS Estimated average glucose 128 mg/dl HISTORICAL RESULTS Comment: The ADA recommends reporting an estimated Average Glucose (eAG) with all Hemoglobin A1c results using the equation derived from a study of 507 normal and diabetic adults. ??Minority populations were underrepresented and children were not included. ??(Diabetes Care 31:5696-1514, 2008). ??The eAG is not equivalent to a fasting glucose. Blood specimen (specimen) 07/01/2014 4:22 PM CDT Tricia Mendoza LAB BLOOD ORDERABLES Final Res ult HISTORICAL RESULTS * Plasma basic metabolic panel (07/01/2014 4:22 PM CDT) Sodium 143 135 - 145 mmol/L HISTORICAL RESULTS K, pl 3.9 3.3 - 4.9 mmol/L HISTORICAL RESULTS Chloride 102 97 - 110 mmol/L HISTORICAL RESULTS CO2 29 22 - 32 mmol/L HISTORICAL RESULTS A. gap 12 0 - 16 mmol/L HISTORICAL RESULTS Glucose 81 70 - 199 mg/dl HISTORICAL RESULTS BUN 18 8 - 25 mg/dl HISTORICAL RESULTS Creatinine 1.08 0.70 - 1.30 mg/dl HISTORICAL RESULTS Calcium 9.8 8.6 - 10.3 mg/dl HISTORICAL RESULTS Plasma 07/01/2014 4:22 PM CDT Tricia Mendoza LAB BLOOD ORDERABLES Final Res ult Performing Organization Address [facility]/State/ZIP Co de Phone Number HISTORICAL RESULTS * Blood cell count [CBC] express (07/01/2014 4:22 PM CDT) WBC 9.6 3.8 - 9.8 K/cumm HISTORICAL RESULTS RBC 5.59 4.50 - 5.70 M/cumm HISTORICAL RESULTS Hgb 16.2 13.8 - 17.2 g/dl HISTORICAL RESULTS Hct 48.4 40.7 - 50.3 % HISTORICAL RESULTS MCV 86.5 80.0 - 97.6 fl HISTORICAL RESULTS MCH 29.0 26.7 - 33.7 pg HISTORICAL RESULTS MCHC 33.5 32.7 - 35.5 g/dl HISTORICAL RESULTS Rdw 14.6 11.8 - 14.6 % HISTORICAL RESULTS Platelets 174 140 - 440 K/cumm HISTORICAL RESULTS MPV 8.4 6.8 - 10.4 fl HISTORICAL RESULTS Blood specimen (specimen) 07/01/2014 4:22 PM CDT Tricia Mendoza LAB BLOOD ORDERABLES Final Res ult Performing Organization Address City/State/[facility] Co de Phone Number HISTORICAL RESULTS * Discharge Laboratory Cumulative Report (07/01/2014 12:00 AM CDT) 07/01/2014 Narrative HISTORICAL RESULTS - 07/01/2014 7:22 PM CDT ?[facility] ?Department of Laboratories ? [address] [facility] [place] ? [place], [place] [address] Patient Name: ??LIBERTAD LORENZO Rec Number: [id number] Fin Number: ?[id number] Date: ?1955 Sex/Age: ? Male 59 years Admit Date: ?07/01/2014 Discharge Date: 07/01/2014 Doctor: ?Bandar Irving Facility: ?[facility] Location: ?CPAP Chart Printed: 07/01/2014 19:22 ?? * Abnormal ?? C Critical ?? f Footnote ?? ^ Corrected ?? L Low ?? H High ? i Interp Data ?? @ Reference Lab ? Chart Type:Periodic ? SELECTED ELECTROLYTES ?Test: Sodium ? Plasma Potassium ??Chloride ? Reference: [135-145] ??[3.3-4.9] ? [97-110] ? Units: mmol/L ? mmol/L ?mmol/L 07/01/2014 ?? 16:22:00 ?? 143 ?3.9 ? 102 ?Test: Total CO2 ??Anion Gap ? Reference: [22-32] ?[0-16] ? Units: mmol/L ? mmol/L 07/01/2014 ?? 16:22:00 ?? 29 ? 12 ? STANDARD BLOOD CHEMISTRY ?Test: BUN ? Creatinine ?? Glucose ?? Total Calcium ? Reference: [8-25] ??[0.70-1.30] ??[70-199] ??[8.6-10.3] ? Units: mg/dL ?? mg/dL ?mg/dL ? mg/dL 07/01/2014 ?? 16:22:00 ?? 18 ?1.08 ? 81 ?9.8 ?GLYCATED HEMOGLOBIN TESTING ?Test: Hemoglobin A1C ??Est Average Glucose ? Reference: [4.0-6.0] ? Units: % ? mg/dL 07/01/2014 ?? 16:22:00 ?? 6.1 ??H ?128 ??f 07/01/2014 16:22:00 ??Est Average Glucose: The ADA recommends reporting an estimated Average Glucose (eAG) with all Hemoglobin A1c results using the equation derived from a study of 507 normal and diabetic adults. ??Minority populations were underrepresented and ?GLYCATED HEMOGLOBIN TESTING children were not included. ??(Diabetes Care 31:2378-4640, 2008). ??The eAG is not equivalent to a fasting glucose. ? COMPLETE BLOOD COUNT ?Test: WBC ?RBC ?Hgb ? Reference: [3.8-9.8] ??[4.50-5.70] ??[13.8-17.2] ? Units: K/cumm ? M/cumm ? g/dL 07/01/2014 ?? 16:22:00 ?? 9.6 ?5.59 ? 16.2 ?Test: Hct ?Platelet Ct ??MCV ? Reference: [40.7-50.3] ??[140-440] ?[80.0-97.6] ? Units: % ?K/cumm ? fL 07/01/2014 ?? 16:22:00 ?? 48.4 ? 174 ?86.5 ?Test: MCH ?MCHC ? RDW ? Reference: [26.7-33.7] ??[32.7-35.5] ??[11.8-14.6] ? Units: pg ? g/dL ? % 07/01/2014 ?? 16:22:00 ?? 29.0 ? 33.5 ? 14.6 ?Test: MPV ? Reference: [6.8-10.4] ? Units: fL 07/01/2014 ?? 16:22:00 ?? 8.4 us Historical Provider LAB BLOOD ORDERABLES Noemi pham Result HISTORICAL RESULTS documented in this encounter Visit Diagnoses Diagnosis Pre-procedural laboratory examination Other specified pre-operative examination [...] medications documented in this encounter Care Teams Internet Assessor Relationship Specialty Start Date End Date Dale Funes MD [address] [address] PCP - General 07/08/09 06/24/19 documented as of this encounter
--- OUTSIDE RECORDS SUMMARY | 2024-11-03 20:15 | XMS_ITS | Encounter Summary ---
Author Organization [facility] Healthcare Address [address] [place] [address] Care Team Providers Care Special Service Representative Name Role Phone Dale Funes MD Primary Care Provider [phone] Encounter Details Date Type Department Care Team (Late st Contact Info) Description 06/23/2009 7:10 AM CDT - 06/23/2009 2:45 PM CDT Hospital Encounter [facility] Tristin Meza MD [address] [place] [place] [id number] Other chest pain; Essential hypertension; Other and unspecified hyperlipidemia; Esophageal reflux Social History Tobacco Use Types Packs/Day Years Used Date Smoking Tobacco: Never Assessed Sex and Gender Information Value Date Recorded Sex Assigned at Not on file 

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
--- OUTSIDE RECORDS SUMMARY | 2024-11-03 21:18 | XMS_ITS | Encounter Summary ---
Author Organization [facility] Care Team Providers Care Bridge Club Manager Name Role Phone Unavailable Primary Care Provider Unavailabl e Encounter Details Date Type Department Care Team (Late st Contact Info) Description 03/18/2008 9:28 AM CDT - 03/22/2008 12:01 AM CDT Hospital Encounter [facility] Theo Allison MD [address] [place] [id number] Social History Tobacco Use Types Packs/Day Years Used Date Smoking Tobacco: Never Assessed Sex and Gender Information Value Date Recorded Sex Assigned at Not on file 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
--- OUTSIDE RECORDS SUMMARY | 2024-11-03 21:18 | XMS_ITS | Encounter Summary ---
Author Organization [facility] Care Team Providers Care Home Care And Home Health Aides Teacher Name Role Phone Unavailable Primary Care Provider Unavailabl e Encounter Details Date Type Department Care Team (Late st Contact Info) Description 03/03/2008 12:54 PM CDT - 03/08/2008 12:01 AM CDT Hospital Encounter [facility] Theo Allison MD [address] [place] [id number] Social History Tobacco Use Types Packs/Day Years Used Date Smoking Tobacco: Never Assessed Sex and Gender Information Value Date Recorded Sex Assigned at Not on file 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
--- OUTSIDE RECORDS SUMMARY | 2024-11-03 21:18 | XMS_ITS | Clinical Summary ---
Author Organization [facility] Address [address] [address] Phone Care Team Providers Care Inpatient Coder Name Role Phone Dale Funes MD Primary Care Provider Allergies No known active allergies Medications allopurinol [...] patient's age to complete this topic Insurance [facility] Care Teams Inpatient Coder Relationship Specialty Start Date End Date Dale Funes MD [address] [address] PCP - General Family Medicine 11/17/16
--- OUTSIDE RECORDS SUMMARY | 2024-11-03 21:18 | XMS_ITS | Encounter Summary ---
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
--- OUTSIDE RECORDS SUMMARY | 2024-11-03 21:18 | XMS_ITS | Encounter Summary ---
Author Organization [facility] Address [address] [address] Care Team Providers Care Cast Iron Drain Pipe Layer Name Role Phone No, Physician Primary Care Provider [phone] Dale Funes MD Unavailable [phone] Reason for Visit * Reason Comments COVID-19 EVALUATION sx onset 5-6 days ag o, feeling a lot better today. c/o sinus congestion and cough. Encounter Details Date Type Department Care Team (Late st Contact Info) Description 10/14/2021 3:15 PM PANTS CUTTER Office Visit [facility] [place] [address] [place] [phone] Arnold Richardson NP [address] [place] [address] Acute nasopharyngitis Social History Tobacco Use Types Packs/Day Years Used Date Smoking Tobacco: Former Smokeless Tobacco: Never Alcohol Use Standard Drinks/Week Comments Yes 0 (1 standard drink = 0.6 oz pur e alcohol) PHQ-2 Answer Date Recorded PHQ-2 Total Score 1 05/21/2020 Sex and Gender Information Value Date Recorded Sex Assigned at Not on file Legal Sex Male 1:06 AM PANTS CUTTER Gender Identity Not on file Sexual Orientation Not on file documented as of this encounter Last Filed Vital Signs Vital Sign Reading Time Taken Comments Blood Pressure 146/80 10/14/2021 3:33 PM PANTS CUTTER Pulse 102 10/14/2021 3:33 PM PANTS CUTTER Temperature 37 ??C (98.6 ??F) 10/14/2021 3:33 PM PANTS CUTTER Respiratory Rate 16 10/14/2021 3:33 PM PANTS CUTTER Oxygen Saturation 97% 10/14/2021 3:33 PM PANTS CUTTER Inhaled Oxygen Concentration - - Weight 136.8 kg (301 lb 9.6 oz) 10/14/2021 3:33 PM PANTS CUTTER Height 185.4 cm (6' 1 ) 10/14/2021 3:33 PM PANTS CUTTER Body Mass Index 39.79 10/14/2021 3:33 PM PANTS CUTTER documented in this encounter Patient Instructions * Patient Instructions* Arnold Richardson, TUBE ROOM SUPERVISOR - 10/14/2021 3:15 PM PANTS CUTTER Patient Education Cold Symptoms PROGRAM CONSULTANT: Cold symptoms include sneezing, dry throat, a [...] ask them during your visits. ?? 2017 [employer] Information is for End User's use only and may not be sold, redistributed or otherwise used for commercial purposes. All illustrations and images included in CareNotes?? are the copyrighted property of [employer], [employer]. or [employer]. The above information is an teachers' aide only. It is not intended as medical advice for individual conditions or treatments. Talk to your doctor, nurse or pharmacist before following any medical regimen to see if it is safe and effective for you. S CUTTER documented in this encounter Ordered Prescriptions Prescription Sig Dispense Quantity Refills Last Filled Start Date End Date methylPREDNISolone (Medrol, Heriberto,) 4 mg DosepackIndications: Acute nasopharyngitis follow package directions 1 packet 10/14/2021 documented in this encounter Progress Notes * Arnold Richardson NP - 10/14/2021 3:15 PM CST Images from the original note were not included. Subjective/Objective Patient: Teo Martinez is a 66 y.o. male followed by [...] and frontal sinus tenderness present. Mouth/Throat: Lips: [place]. Mouth: Mucous membranes are moist. Pharynx: Oropharynx [...] persist Patient Instructions: Patient Education Cold Symptoms PROGRAM CONSULTANT: Cold symptoms include sneezing, dry throat, a [...] ask them during your visits. ?? 2017 [employer] Information is for End User's use only and may not be sold, redistributed or otherwise used for commercial purposes. All illustrations and images included in CareNotes?? are the copyrighted property of [employer]. or [employer]. The above information is an teachers' aide only. It is not intended as [...] gown, gloves, face shield. Arnold Richardson NP S CUTTER S CUTTER documented in this encounter Miscellaneous Notes * Addendum Note - Arnold Richardson NP - 10/14/2021 3:15 PM CSTAddended by: ARNOLD RICHARDSON on: 10/14/2021 04:11 PM Modules accepted: Orders S CUTTER * Addendum Note - Amy Resendiz MA - 10/14/2021 3:15 PM CSTAddended by: AMY RESENDIZ on: 10/14/2021 04:11 PM Modules accepted: Orders S CUTTER documented in this encounter Plan of Treatment Not on file documented as of this encounter Procedures Procedure Name Priority Date/Time Associated Diagnosis Comments POC INFLUENZA A/B, COVID-19 ANTIGEN Routine 10/14/2021 4:04 PM PANTS CUTTER Acute nasopharyngitis documented in this encounter Results * COVID-19 Coronavirus RNA Nasopharyngeal (10/14/2021 4:11 PM PANTS CUTTER) Pathologist [facility] COVID-19 RNA Negative Negative PATEL Employeed in healthcare? No PATEL Group care resident? No PATEL Hospitalized? No [facility] Is patient in ICU? No [facility] Symptomatic as defined by CDC? Yes [facility] Nasopharyngeal 10/14/2021 4: 11 PM PANTS CUTTER 10/14/2021 10:19 PM PANTS CUTTER Narrative [facility] - 10/14/2021 11:27 PM PANTS CUTTER What is the reason for testing?->Symptoms of COVID-19 in high-risk group Date of Symptom Onset->10/09/21 us Arnold Richardson NP LAB MICROBIOLOGY - GENERAL ORDERABLES Final Result [facility] [address] Department [place] [address] * POC Influenza A/B, COVID-19 antigen (10/14/2021 4:04 PM PANTS CUTTER) Influenza A Ag, POC Negative [facility] Influenza B Ag, POC Negative [facility] [place] COVID-19 Ag POC Presumptive Negative Presumptive Negative, Invalid [facility] [place] Nasal 10/14/2021 4:04 PM PANTS CUTTER us Arnold Richardson TUBE ROOM SUPERVISOR POINT OF CARE TEST ORDERABL ES Final Result [facility] [place] [address] [place] [address] documented in this encounter Visit Diagnoses Diagnosis Acute nasopharyngitis Acute nasopharyngitis (common cold) Acute nasopharyngitis Acute nasopharyngitis (common cold) documented in this encounter Additional Health Concerns Infection Onset Date Last Indicated Resolved Time COVID: Suspected 10/14/2021 10/14/2021 10/14/2021 4:05 PM PANTS CUTTER COVID: Suspected 10/14/2021 10/14/2021 10/14/2021 11:28 PM PANTS CUTTER documented as of this encounter Care Teams Cast Iron Drain Pipe Layer Relationship Specialty Start Date End Date No, Physician PCP - General 06/25/19 03/06/23 Dale Funes MD [address] [address] 06/25/19 documented as of this encounter
--- OUTSIDE RECORDS SUMMARY | 2024-11-03 21:18 | XMS_ITS | Encounter Summary ---
Author Organization [facility] Address [address] [place] [address] Care Team Providers Care Push Connector Assembler Name Role Phone Dale Funes MD Unavailable [phone] Dale Funes MD Primary Care Provider [phone] Reason for Visit * Auth/Cert (Routine) Specialty Diagnoses / Procedures Referred By Contac t Referred To Contact Diagnoses Other diseases of stomach and duodenum Other diseases of stomach and duodenum [K31.89] Procedures [place] EDG US EXAM SURGICAL ALTER STOM DUODENUM/JEJUNUM EUS SC/OA/Interventional Referral ID Status Reason Start Date Expiration Date Visits Re quested Visits Authorized [id number] 1 1 Encounter Details Date Type Department Care Team (Latest Contact Info) Description 03/10/2023 6:59 AM CDT - 03/10/2023 9:30 AM CDT Hospital Encounter [facility] [address] [place] [address] Rosario Bravo MD [address] [facility] [address] [place], [place] [id number] Other diseases of stomach and duodenum Discharge [...] on file Legal Sex Male 1:06 AM STARS SPECIALIST Gender Identity Not on file Sexual [...] mg total) by mouth daily calcium carbonate ([id number]-794) 1,250 MG (500 mg of elemental calcium) tablet Take by mouth daily cholecalciferol (VITAMIN D-3) 50,000 unit capsule 68471 UNIT ORALLY WEEKLY 3 cyclobenzaprine (FLEXERIL) 10 [...] Neck Surgery - (Added by TW Conv) [place] ARTHRD ANT INTERBODY MIN DSC CRV BELOW C2 Cervical Vertebral Fusion - (Added by TW Conv) [place] RPR UMBILICAL HERNIA < 5 YRS REDUCIBLE [...] daily Yes Chiqui Wynn MD calcium carbonate ([id number]-299) 1,250 MG (500 mg of elemental calcium) tablet Take by mouth daily Yes Chiqui Wynn MD cholecalciferol (VITAMIN D-3) 50,000 unit capsule 97508 UNIT ORALLY WEEKLY 12/18/22 Yes Chiqui Wynn [...] Male Attending MD: Rosario Bravo M.D. Room: [facility] ENDOSCOPY ROOM 9 Note Status: Finalized [...] consent was obtained. The Olympus radial endosonoscope [id number] was introduced through the mouth, and advanced [...] 7 days, please contact my office at [phone]. - Return to referring physician as previously scheduled. Attending Participation: I was present and participated during the entire procedure, including non-beth portions. Electronically signed by Rosario Bravo MD Rosario Bravo M.D. 03/10/2023 8:54:53 AM . Number of Addenda: 0 Note Initiated On: 03/10/2023 7:50 AM Recognized by the [place] [employer] for promoting quality [...] gastric) 03/10/2023 8:31 AM CDT Narrative PATHOLOGY [facility] - 03/14/2023 3:25 PM CDT EPIC results best viewed via link to PDF [facility] [place] [address] Note to Patients: This report may contain [...] ??M : ??1955 (Age: 67) Address: ??[address] [place], [place] ??[address] Hospital #: ??[id number] Taken:03/10/2023 Received:03/10/2023 Reported: 03/14/2023 Patient Type: [facility] SDS ?? Service: Gastro Location: Physician(s): ??Rosario [...] Surgical Pathology and Flow Cytometry Departments at [facility] as part of an ongoing quality control lab tech program and in compliance with federally mandated [...] Surgical Pathology and Flow Cytometry Departments of [facility]. ??It has not been cleared or approved by the U. S. Food and Drug Administration. IMAGES AND SCANNED DOCUMENTS, IF INCLUDED, ONLY VIEWABLE IN PDF VERSION OF REPORT us Rosario Bravo MD LAB PATHOLOGY ORDERABLES Final Result PATHOLOGY [facility] 3rd Floor [place], [place] [phone] * EUS (03/10/2023 7:50 AM CDT) Anatomical Region Laterality Modality Other Narrative Procedure Note Rosario Bravo MD - 03/10/2023 7:50 AM CDT [facility] Patient Name: Libertad Lorenzo Procedure Date: 03/10/2023 7:50 AM Date of : 1955 Admit Type: Outpatient Age: 67 Gender: Male Attending MD: Rosario Bravo M.D. Room: [facility] ENDOSCOPY ROOM 9 Note Status: Finalized [...] informed consent was obtained. The Olympusradial endosonoscope [id number] was introduced throughthe mouth, and advanced to [...] 7 days, please contact my office at [phone]. - Return to referring physician as previously scheduled. Attending Participation: I was present and participated during the entire procedure, including non-beth portions. Electronically signed by Rosario Bravo MD Rosario Bravo M.D. 03/10/2023 8:54:53 AM . Number of Addenda: 0 Note Initiated On: 03/10/2023 7:50 AM Recognized by the [place] [employer] for promoting quality in endoscopy Rosario Bravo MD ENDOSCOPY PROCEDURES Final Res ult * POCT glucose (03/10/2023 7:25 AM CDT) Glucose, POC 117 70 - 199 mg/dL PATEL NAVARRO Blood 03/10/2023 7:25 AM CDT 03/10/2023 7:25 AM CDT Rosario Bravo MD LAB POCT ORDERABLES - DEVICE F inal Result [facility] Department [place] [address] documented in this encounter Visit Diagnoses Diagnosis [...] 02/19/2023 cholecalciferol (VITAMIN D-3) 50,000 unit capsule [id number] UNIT ORALLY WEEKLY 12/18/2022 lisinopriL (PRINIVIL,ZESTRI L) [...] 03/10/2023 documented in this encounter Care Teams Push Connector Assembler Relationship Specialty Start Date End Date Dale Funes MD [address] [address] PCP - General Family Medicine 03/07/23 Dale Funes MD [address] [address] 06/25/19 documented as of this encounter
--- OUTSIDE RECORDS SUMMARY | 2024-11-03 21:18 | XMS_ITS | Patient Health Summary ---
Author Organization [facility] Address [address] [place] [address] Care Team Providers Care Health Advocate Name Role Phone Dale Funes MD Primary Care Provider [phone] Note from [facility],non-owned Affiliates and Associated Physician Practices is amultiple site organization consisting of ambulatory clinics and hospital sitesin [place], [place], [place] and [place]. This disclosure is being madepursuant to the Care Everywhere program and may not contain all information available regarding this patient. Last updated 18.[facility] Social History Tobacco Use Types Packs/Day Years Used Date Smoking Tobacco: Never Assessed Sex and Gender Information Value Date Recorded Sex Assigned at Not on file Gender Identity Not on file Sexual Orientation Not on file Last Filed Vital Signs Vital Sign Reading Time Taken Comments Blood Pressure 113/72 12/26/2017 12:23 PM PASTEURIZER Pulse 75 12/26/2017 12:23 PM PASTEURIZER Temperature 36.3 ??C (97.4 ??F) 12/26/2017 8:19 AM CS T Respiratory Rate 13 12/26/2017 12:23 PM PASTEURIZER Oxygen Saturation 94% 12/26/2017 12:23 PM PASTEURIZER Inhaled Oxygen Concentration - - Weight 127.9 kg (282 lb) 12/26/2017 8:15 AM PASTEURIZER Height 185.4 cm (6' 1 ) 12/26/2017 8:15 AM PASTEURIZER Body Mass Index 37.21 12/26/2017 8:15 AM PASTEURIZER Procedures * PATHOLOGY TISSUE(Performed 12/26/2017) * ARY [...] TIBC PANEL(Performed 11/13/2017) * CERULOPLASMIN(Performed 11/13/2017) * VPVTP-4-MZPFUWXSCNJ BLOOD(Performed 11/13/2017) * IGG BLOOD(Performed 11/13/2017) * INTERPRETATION (7)(Performed 11/13/2017) Results * PATHOLOGY TISSUE (12/26/2017 9:57 AM PASTEURIZER) Surgical Pathology Tissue ACCESSION No: [id number] CLINICAL HISTORY: Elevated liver enzymes, hepatocellular pattern [...] condensation. The PAS-D stain is negative for adzyt-2-ihhsnvhfxhy globules. The iron stain is negative. While the tissue core is small and subcapsular with <10 portal tracts for evaluation, the overall histologic findings are compatible with the clinical suspicion of fatty liver disease; if this small sampling were life assurance representative of the whole liver, the BRUCE [...] were determined by the Histopathology Laboratory of [facility].?? Some of these tests were developed by [...] by Yvrose Lee MD. Electronically signed 12/27/2017 [facility] Other (qualifier value) 12/26/2017 9:57 AM PASTEURIZER 12/26/2017 12:25 PM PASTEURIZER Narrative [facility] - 12/27/2017 2:47 PM PASTEURIZER Elevated liver enzymes, hepatocellular pattern with intact liver synthetic function. Most likely etiology is HERRMANN given his risk factors. Evaluate for HERRMANN vs other causes. Fibrosis staging Specimen A->Liver Christos Blum MD LAB - PATHOLOGY/CYTOLOGY ORDERABLES [facility] PATH[facility] LAB [address] [facility]. [address] [phone] * PT-INR [facility] (11/13/2017 1:39 PM PASTEURIZER) INR 1.1 0.8 - 1.2 [facility] ([facility]) Comment: Reference interval is for non-anticoagulated patients. Suggested INR therapeutic range for Vitamin K antagonist therapy: ?? Standard Dose (moderate intensity ?therapeutic range): ? 2.0 - 3.0 ?? Higher intensity therapeutic range ? 2.5 - 3.5 PT 11.3 9.1 - 12.0 sec [facility] ([facility]) Blood specimen (specimen) BLOOD SPECIMEN / Unknown 11/13/2017 1:39 PM PASTEURIZER 11/13/2017 Narrative [facility] ([facility]) - 11/14/2017 7:11 AM PASTEURIZER Is patient on Heparin, Argatroban or Dabigatran?->N Performed at: ??01 - [address] ??[id number] Service Rig Operator: Wayne Kelly PhD, Phone: ??[phone] Christos Blum MD LAB - COAGULATION ORDERABLES Performing Organization Address City/[facility]/ZIP Co de Phone Number [facility] ([facility]) [address] [place] [address] [[email or web address]] * HEPATITIS C AB W/RFLX TO HCV RNA QN PCR (11/13/2017 1:39 PM PASTEURIZER) Hepatitis C Antibody 0.2 0.0 - 0.9 s/co ratio [facility] ([facility]) 11/13/2017 1:39 PM PASTEURIZER 11/13/2017 Narrative [facility] ([facility]) - 11/14/2017 7:11 AM PASTEURIZER Performed at: ??01 - [address] ??[id number] Service Rig Operator: Wayne Kelly PhD, Phone: ??[phone] Christos Blum MD LAB - CHEMISTRY ORDERABLES Performing Organization Address [facility] de Phone Number [facility]) [address] [place] [address] [[email or web address]] * INTERPRETATION (7) (11/13/2017 1:39 PM PASTEURIZER) Interpretation [facility] ([facility]) Comment: Negative Not infected with HCV, unless recent infection is suspected or other evidence exists to indicate HCV infection. 11/13/2017 1:39 PM PASTEURIZER 11/13/2017 Narrative [facility] ([facility]) - 11/14/2017 7:11 AM PASTEURIZER Performed at: ??01 - [place] [id number] [place], [place] ??[id number] Service Rig Operator: Wayne Kelly PhD, Phone: ??[phone] Christos Blum MD LAB - SEROLOGY ORDERABLES Performing Organization Address [facility] de Phone Number [facility]) [address] [place] [address] [[email or web address]] * MITOCHONDRIAL ANTIBODY SCREEN (11/13/2017 1:39 PM PASTEURIZER) Pathologist [facility] Mitochondrial M2 Antibody <20.0 0.0 - 20.0 Units [facility]) Comment: ?Negative ?0.0 - 20.0 ?Equivocal ??20.1 - 24.9 ?Positive ? >24.9 Mitochondrial (M2) Antibodies are found in 90-96% of patients with primary biliary cirrhosis. Blood specimen (specimen) BLOOD SPECIMEN / Unknown 11/13/2017 1:39 PM PASTEURIZER 11/13/2017 Narrative [facility] ([facility]) - 11/14/2017 3:11 PM PASTEURIZER Performed at: ??01 - [facility] [address] [facility], [place], [place] ??[id number] Service Rig Operator: Wayne Kelly PhD, Phone: ??[phone] Christos Blum MD LAB - CHEMISTRY ORDERABLES [facility] ([facility]) [address] [place] [address], [facility] * (ABNORMAL) ARY BLOOD TITER (11/13/2017 1:39 PM PASTEURIZER) Homogeneous Pattern 1:160(H) [facility] ([facility]) Note [facility] ([facility]) Comment: A positive ARY result may occur in healthy individuals (low titer) or be associated with a variety of diseases. ??See interpretation chart which is not all inclusive: Pattern ?Antigen Detected ??Suggested Disease Association ? Homogeneous ??DNA(ds,ss), ? SLE - High titers ? Nucleosomes, ? Histones ?Drug-induced SLE ? Speckled ? Sm, TRANSIT OPERATOR, SCL-70, ??SLE,MCTD,PSS (diffuse form), ? SS-A/SS-B ? Sjogrens ? Nucleolar ?SCL-70, PM-1/SCL ??High titers Scleroderma, ? PM/DM ? Centromere ?? Centromere ?PSS (limited form) w/Crest ? syndrome variable ? Nuclear Dot ??Sp100,[id number] ??Primary Biliary Cirrhosis ? Nuclear ?GP210, ?Primary Biliary Cirrhosis Membrane ? edwardo A,B,C ? 11/13/2017 1:39 PM PASTEURIZER 11/13/2017 Narrative [facility] ([facility]) - 11/14/2017 3:11 PM PASTEURIZER Performed at: ??01 - [facility] [address] [place], [place] ??[id number] Service Rig Operator: Wayne Kelly PhD, Phone: ??[phone] Christos Blum MD LAB - CHEMISTRY ORDERABLES Performing Organization Address [facility] de Phone Number [facility] ([facility]) [address] [place] [address] [[email or web address]] * (ABNORMAL) ARY BLOOD SCREEN W/REFLEX TITER (11/13/2017 1:39 PM PASTEURIZER) ARY IFA Positive(A ) [facility] ([facility]) Comment: ? Negative ?? <1:80 ? Borderline ??1:80 ? Positive ?? >1:80 Blood specimen (specimen) BLOOD SPECIMEN / Unknown 11/13/2017 1:39 PM PASTEURIZER 11/13/2017 Narrative [facility] ([facility]) - 11/14/2017 3:11 PM PASTEURIZER Performed at: ??01 - [facility] [address] [place], [place] ??[id number] Service Rig Operator: Wayne Kelly PhD, Phone: ??[phone] Christos Blum MD LAB - CHEMISTRY ORDERABLES Performing Organization Address [facility] Co de Phone Number [facility] ([facility]) [address] [place] [address], [facility] * CERULOPLASMIN (11/13/2017 1:39 PM PASTEURIZER) Pathologist [facility] Ceruloplasmin 30.6 16.0 - 31.0 mg/dL [facility] ([facility]) Blood specimen (specimen) BLOOD SPECIMEN / Unknown 11/13/2017 1:39 PM PASTEURIZER 11/13/2017 Narrative [facility] ([facility]) - 11/14/2017 7:11 AM PASTEURIZER Performed at: ??01 - [facility] ??[id number] Service Rig Operator: Wayne Kelly PhD, Phone: ??[phone] Christos Blum MD LAB - CHEMISTRY ORDERABLES Performing Organization Address [facility] de Phone Number [facility] ([facility]) [address] [place] [address] [[email or web address]] * XTWEK-2-SKXEICBRDDA BLOOD (11/13/2017 1:39 PM PASTEURIZER) Rwdjl-1-Wfqzkoe psin 159 90 - 200 mg/dL [facility] ([facility]) Blood specimen (specimen) BLOOD SPECIMEN / Unknown 11/13/2017 1:39 PM PASTEURIZER 11/13/2017 Narrative [facility] ([facility]) - 11/14/2017 7:11 AM PASTEURIZER Performed at: ??01 - [address] ??[id number] Service Rig Operator: Wayne Kelly PhD, Phone: ??[phone] Christos Blum MD LAB - CHEMISTRY ORDERABLES Performing Organization Address [facility] de Phone Number [facility] ([facility]) [address] [place] [address] [[email or web address]] * SMOOTH MUSCLE ANTIBODY (11/13/2017 1:39 PM PASTEURIZER) Actin (Smooth Muscle) Antibody 13 0 - 19 Units [facility] ([facility]) Comment: ? Negative ? 0 - 19 ? Weak positive ? 20 - 30 ? Moderate to strong positive ? >30 Actin Antibodies are found in 52-85% of patients with autoimmune hepatitis or chronic active hepatitis and in 22% of patients with primary biliary cirrhosis. 11/13/2017 1:39 PM PASTEURIZER 11/13/2017 Narrative [facility] ([facility]) - 11/14/2017 3:11 PM PASTEURIZER Performed at: ??01 - [facility] [address] [facility], [place], [place] ??[id number] Service Rig Operator: Wayne Kelly PhD, Phone: ??[phone] Christos Blum MD LAB - SEROLOGY ORDERABLES [facility] ([facility]) [address] [place] [address], [facility] * CBC W AUTO DIFFERENTIAL (11/13/2017 1:39 PM PASTEURIZER) WBC 8.1 3.4 - 10.8 x10E3/uL [facility] ([facility]) RBC 5.50 4.14 - 5.80 x10E6/uL [facility] ([facility]) Hemoglobin 15.9 13.0 - 17.7 g/dL [facility] ([facility]) Hematocrit 45.8 37.5 - 51.0 % [facility] ([facility]) MCV 83 79 - 97 fL [facility] ([facility]) MCH 28.9 26.6 - 33.0 pg [facility] ([facility]) MCHC 34.7 31.5 - 35.7 g/dL [facility] ([facility]) RDW-CV 14.2 12.3 - 15.4 % [facility] ([facility]) Platelet 214 150 - 379 x10E3/uL [facility] ([facility]) Neutrophils % 71 Not Estab. % [facility] ([facility]) Lymphocytes % 20 Not Estab. % [facility] ([facility]) Monocytes % 7 Not Estab. % [facility] ([facility]) Eosinophils % 1 Not Estab. % [facility] ([facility]) Basophil % 1 Not Estab. % [facility] ([facility]) Neutrophils Absolute 5.7 1.4 - 7.0 x10E3/uL [facility] ([facility]) Lymphocyte Absolute Manual 1.6 0.7 - 3.1 x10E3/uL [facility] ([facility]) Monocytes Absolute 0.5 0.1 - 0.9 x10E3/uL [facility] ([facility]) Eosinophils Absolute Manual 0.1 0.0 - 0.4 x10E3/uL [facility] ([facility]) Basophil Absolute Manual 0.0 0.0 - 0.2 x10E3/uL [facility] ([facility]) Immature Granulocytes % 0 Not Estab. % [facility] ([facility]) Immature Granulocytes absolute 0.0 0.0 - 0.1 x10E3/uL [facility] ([facility]) Blood specimen (specimen) BLOOD SPECIMEN / Unknown 11/13/2017 1:39 PM PASTEURIZER 11/13/2017 Narrative [facility] ([facility]) - 11/14/2017 7:11 AM PASTEURIZER Performed at: ??01 - [facility] [address] ??[id number] Service Rig Operator: Wayne Kelly PhD, Phone: ??[phone] Christos Blum MD LAB - HEMATOLOGY ORDERABLES [facility] ([facility]) [address] [place] [address] [[email or web address]] * (ABNORMAL) COMPREHENSIVE METABOLIC PANEL (11/13/2017 1:39 PM PASTEURIZER) Glucose 106(H) 65 - 99 mg/dL [facility] ([facility]) BUN 19 8 - 27 mg/dL [facility] ([facility]) Creatinine 1.23 0.76 - 1.27 mg/dL [facility] ([facility]) eGFR non- 62 >59 mL/min/1.7 3 [facility] ([facility]) eGFR 72 >59 mL/min/1.7 3 [facility] ([facility]) BUN/Creatinine Ratio 15 10 - 24 [facility] ([facility]) Sodium 139 134 - 144 mmol/L [facility] ([facility]) Potassium 4.4 3.5 - 5.2 mmol/L [facility] [...] BLOOD SPECIMEN / Unknown 11/13/2017 1:39 PM PASTEURIZER 11/13/2017 Narrative [facility] ([facility]) - 11/14/2017 7:11 AM PASTEURIZER Performed at: ??01 - [facility] [address] [place], [place] ??[id number] Service Rig Operator: Wayne Kelly PhD, Phone: ??[phone] Christos Blum MD LAB - CHEMISTRY ORDERABLES [facility] ([facility]) [address] [place] [address] [[email or web address]] * IRON + TIBC PANEL (11/13/2017 1:39 PM PASTEURIZER) TIBC 444 250 - 450 ug/dL [facility] ([facility]) UIBC 341 111 - 343 ug/dL [facility] ([facility]) Iron 103 38 - 169 ug/dL [facility] ([facility]) Iron Saturation 23 15 - 55 % [facility] ([facility]) Serum 11/13/2017 1:39 PM PASTEURIZER 11/13/2017 Narrative [facility] ([facility]) - 11/14/2017 7:11 AM PASTEURIZER Performed at: ??01 - [address] ??[id number] Service Rig Operator: Wayne Kelly PhD, Phone: ??[phone] Christos Blum MD LAB - CHEMISTRY ORDERABLES Performing Organization Address [facility] de Phone Number [facility] ([facility]) [address] [place] [address] [[email or web address]] * HEPATITIS B SURFACE ANTIBODY (11/13/2017 1:39 PM PASTEURIZER) Pathologist [facility] Hepatitis B Virus Surface Antibody Non Reactive [facility] ([facility]) Comment: ?Non Reactive: Inconsistent with immunity, ?less than 10 mIU/mL ?Reactive: ? Consistent with immunity, ?greater than 9.9 mIU/mL Blood specimen (specimen) BLOOD SPECIMEN / Unknown 11/13/2017 1:39 PM PASTEURIZER 11/13/2017 Narrative [facility] ([facility]) - 11/14/2017 7:11 AM PASTEURIZER Performed at: ??01 - [address] ??[id number] Service Rig Operator: Wayne Kelly PhD, Phone: ??[phone] Christos Blum MD LAB - CHEMISTRY ORDERABLES Performing Organization Address [facility] de Phone Number [facility] [address] [place] [address] [[email or web address]] * HEPATITIS B CORE ANTIBODY (11/13/2017 1:39 PM PASTEURIZER) Hepatitis B Core Virus Antibody Total Negative Negative [facility] ([facility]) Blood specimen (specimen) BLOOD SPECIMEN / Unknown 11/13/2017 1:39 PM PASTEURIZER 11/13/2017 Narrative [facility] ([facility]) - 11/14/2017 7:11 AM PASTEURIZER Performed at: ??01 - [address] ??[id number] Service Rig Operator: Wayne Kelly PhD, Phone: ??[phone] Christos Blum MD LAB - CHEMISTRY ORDERABLES Performing Organization Address City/[facility] Co de Phone Number [facility] ([facility]) [address] [place] [address] [[email or web address]] * HEPATITIS B SURFACE ANTIGEN W RFLX CONFIRMATION (11/13/2017 1:39 PM PASTEURIZER) Hepatitis B Virus Surface Antigen Screen Negative Negative [facility] ([facility]) Blood specimen (specimen) BLOOD SPECIMEN / Unknown 11/13/2017 1:39 PM PASTEURIZER 11/13/2017 Narrative [facility] ([facility]) - 11/14/2017 7:11 AM PASTEURIZER Performed at: ??01 - [address] ??[id number] Service Rig Operator: Wayne Kelly PhD, Phone: ??[phone] Christos Blum MD LAB - CHEMISTRY ORDERABLES Performing Organization Address City/[facility] Co de Phone Number [facility] ([facility]) [address] [place] [address] [[email or web address]] * IGG BLOOD (11/13/2017 1:39 PM PASTEURIZER) IgG Quantitative 1006 700 - 1600 mg/dL [facility] ([facility]) Blood specimen (specimen) BLOOD SPECIMEN / Unknown 11/13/2017 1:39 PM PASTEURIZER 11/13/2017 Narrative [facility] ([facility]) - 11/14/2017 7:11 AM PASTEURIZER Performed at: ??01 - [address], [place] ??[id number] Service Rig Operator: Wayne Kelly PhD, Phone: ??[phone] Christos Blum MD LAB - CHEMISTRY ORDERABLES Performing Organization Address City/[facility]/ZIP Co de Phone Number [facility] ([facility]) [address] [place] [address] [[email or web address]] * (ABNORMAL) HEPATITIS A ANTIBODY (11/13/2017 1:39 PM PASTEURIZER) Pathologist [facility] Hepatitis A Virus Antibody Total Positive(A ) Negative [facility] ([facility]) Blood specimen (specimen) 11/13/2017 1:39 PM PASTEURIZER 11/13/2017 Narrative [facility] ([facility]) - 11/14/2017 7:11 AM PASTEURIZER Performed at: ??01 - [address] ??[id number] Service Rig Operator: Wayne Kelly PhD, Phone: ??[phone] Christos Blum MD LAB - CHEMISTRY ORDERABLES Performing Organization Address [facility] Co de Phone Number [facility] ([facility]) [address] [place] [address] [[email or web address]] * FERRITIN (11/13/2017 1:39 PM PASTEURIZER) [facility] Ferritin 138 30 - 400 ng/mL [facility] ([facility]) Blood specimen (specimen) BLOOD SPECIMEN / Unknown 11/13/2017 1:39 PM PASTEURIZER 11/13/2017 Narrative [facility] ([facility]) - 11/14/2017 7:11 AM PASTEURIZER Performed at: ??01 - [address] ??[id number] Service Rig Operator: Wayne Kelly PhD, Phone: ??[phone] Christos Blum MD LAB - CHEMISTRY ORDERABLES Performing Organization Address City/[facility]/ZIP Co de Phone Number [facility] ([facility]) [address] [place] [address] [[email or web address]] Care Teams Health Advocate Relationship Specialty Start Date End Date Dale Funes MD PCP - General 03/14/18
--- OUTSIDE RECORDS SUMMARY | 2024-11-03 21:18 | XMS_ITS | Encounter Summary ---
Author Organization [facility] Healthcare Address [address] [place] [address] Care Team Providers Care Security Guard Name Role Phone Dale Funes MD Primary Care Provider [phone] Encounter Details Date Type Department Care Team (Late st Contact Info) Description 03/21/2019 Ancillary Procedure [facility] - Imaging [phone] Theo Waller MD [address] [facility] [address] [place] [address] Social History Tobacco Use Types Packs/Day Years Used Date Smoking Tobacco: Former Sex and Gender Information Value Date Recorded Sex Assigned at Not on file 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 us Theo Waller MD IMG CT PROCEDURES Final Resul t RAD_PACS_[facility] documented in this encounter Visit Diagnoses Not on filedocumented in this encounter Care Teams Security Guard Relationship Specialty Start Date End Date Dale Funes MD [address] [address] PCP - General 07/08/09 06/24/19 documented as of this encounter
--- OUTSIDE RECORDS SUMMARY | 2024-11-03 21:18 | XMS_ITS | Encounter Summary ---
Author Organization [facility] Healthcare Address [address] [place] [address] Care Team Providers Care Senior Statistician Name Role Phone No, Physician Primary Care Provider [phone] Dale Funes MD Unavailable [phone] Encounter Details Date Type Department Care Team (Late st Contact Info) Description 10/17/2019 Ancillary Procedure [facility] - Imaging [phone] Theo Waller MD [address] [facility] [address] [place] [address] Social History Tobacco Use Types Packs/Day Years Used Date Smoking Tobacco: Former Smokeless Tobacco: Never Alcohol Use Standard Drinks/Week Comments Yes 0 (1 standard drink = 0.6 oz pur e alcohol) PHQ-2 Answer Date Recorded PHQ-2 Score 6 07/31/2019 Sex and Gender Information Value Date Recorded Sex Assigned at Not on file 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 us Theo Waller MD IMG CT PROCEDURES Final Resul t RAD_PACS_[facility] documented in this encounter Visit Diagnoses Not on filedocumented in this encounter Care Teams Senior Statistician Relationship Specialty Start Date End Date No, Physician PCP - General 06/25/19 03/06/23 Dale Funes MD [address] [address] 06/25/19 documented as of this encounter
--- OUTSIDE RECORDS SUMMARY | 2024-11-03 21:18 | XMS_ITS | Encounter Summary ---
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 TERESA CARRASQUILLO M.D. FINAL REPORT The radiology attending physician has personally reviewed this study, and has reviewed and/or edited this written report and agrees with it. ACC# ??Date Time ??Exam [id number] Jul 01, 2014 13:41:[address] Chest without contrast ACC# ??Date Time ??Exam [id number] Jul 01, 2014 13:41:[id number] Chest without contrast EXAMINATION: ?CT of [...] BRAMBILA M.D. on Jul 01 2014 ??3:18P [id number] Procedure Note Provider, MD Chiqui - 02/22/2017 AUBREY BRAMBILA M.D. TERESA CARRASQUILLO M.D. FINAL REPORT The radiology attending physician has personally reviewed this study, and has reviewed and/or edited this written report and agrees with it. [facility]# Date Time Exam [id number] Jul 01, 2014 13:41:[id number] Chest without contrast ACC# Date Time Exam [id number] Jul 01, 2014 13:41:[id number] Chest without contrast EXAMINATION: CT of [...] 4.5 x 2.5 cm. Requested By: GAIL BETACNOURT M.D. Dictated By: TERESA CARRASQUILLO M.D. on Jul 01 2014 2:16P This document has been electronically signed by: AUBREY BRAMBILA M.D. on Jul 01 2014 3:18P [id number] us Historical Provider MD ALEX CT PROCEDURES [...] medications documented in this encounter Care Teams Therapist Rrt Relationship Specialty Start Date End Date Dale Funes MD [address] [address] PCP - General 07/08/09 06/24/19 documented as of this encounter
--- OUTSIDE RECORDS SUMMARY | 2024-11-03 21:18 | XMS_ITS | Clinical Summary ---
Author Organization [facility] Building A Address [address] [facility] [place] [address] Care Team Providers Care Block Engraver Name Role Phone Dale Funes MD Unavailable [phone] Dale Funes MD Primary Care Provider [phone] Allergies No known active allergies Medications allopurinol [...] evening 3 06/11/20 19 Active calcium carbonate ([id number]-871) 1,250 MG (500 mg of elemental calcium) [...] Active cholecalciferol (VITAMIN D-3) 50,000 unit capsule 81235 UNIT ORALLY WEEKLY 12/18/19 23 Active DULoxetine [...] Knee Surgery - (Added by TW Conv) [place] RPR UMBILICAL HERNIA < 5 YRS REDUCIBLE Umbilical Hernia Repair - (Added by TW Conv) [place] ARTHRD ANT INTERBODY MIN DSC CRV BELOW [...] on file 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 Gender Identity Not on file Sexual [...] history exists Medical Devices Implanted Type Area Golf Ball Winder Device Identifier Shelf Expiration Date Model / Serial / Lot Conmed Kathleen Conmed 11mm Duraclip [id number] - [id number] Implanted:Qty: 1 on 03/10/2023 by Rosario Bravo MD at [facility] Conmed Kathleen 11/12/2024 [id number] / / [id number] Conmed Kathleen Conmed 11mm Duraclip [id number] - [id number] Implanted:Qty: 1 on 03/10/2023 by Rosairo Bravo MD at [facility] Conmed Kathleen 11/12/2024 [id number] / / [id number] Insurance MEDICARE [facility] MEDICARE [facility] MEDICARE [employer] COMPENSATION GENERIC Advance Directives For more information, please contact: [phone] * Full Code (Latest Code Status on File) Date Activated Date Inactivated Comments 03/10/2023 7:16 AM 03/10/2023 1:30 PM Care Teams Block Engraver Relationship Specialty Start Date End Date Dale Funes MD [email or web address] [address] PCP - General Family Medicine 03/07/23 Dale Funes MD [email or web address] [address] 06/25/19
--- OUTSIDE RECORDS SUMMARY | 2024-11-03 21:18 | XMS_ITS | Encounter Summary ---
Author Organization [facility] Facility Care Team Providers Care Cage/Vault Supervisor Name Role Phone Dale Funes MD Primary Care Provider [phone] Encounter Details Date Type Department Care Team (Late st Contact Info) Description 08/12/2014 Hospital Encounter [facility] Jose C Abad MD [address] [place] [address] Enlarged lymph nodes; Other specified pre-operative examination Social History Tobacco Use Types Packs/Day Years Used Date Smoking Tobacco: Former Sex and Gender Information Value Date Recorded Sex Assigned at Not on file 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 [facility] ? Department of Laboratories ? One [facility] ? [place] [address] [address] ?[facility] ?Outpatient ?Physician ? Patient Name: ? LIBERTAD LORENZO Med Rec Number: ?? [id number] Date of : ?1955 Gender/Age: ? Male [...] ORDERABLES Noemi l Result Performing Organization Address [facility] de Phone Number HISTORICAL RESULTS * Blood glucose, POC (08/12/2014 4:39 PM CDT) Glucose, POC, bld 105 70 - 199 mg/dl HISTORICAL RESULTS Blood specimen (specimen) 08/12/2014 4:39 PM CDT Jose C Abad MD LAB BLOOD ORDERABLES Fi nal Result Performing Organization Address [facility] Phone Number HISTORICAL RESULTS * Blood glucose, POC (08/12/2014 11:23 AM CDT) Glucose, POC, bld 107 70 - 199 mg/dl HISTORICAL RESULTS Blood specimen (specimen) 08/12/2014 11:23 AM CDT Jose C Abad MD LAB BLOOD ORDERABLES Fi nal Result Performing Organization Address [facility] de Phone Number HISTORICAL RESULTS * [...] agrees with it. ACC# ??Date Time ??Exam [id number] Aug 12, 2014 10:52:00 90465 Neck Ultrasound EXAMINATION: ?? NECK SONOGRAM HISTORY: [...] agrees with it. ACC# Date Time Exam [id number] Aug 12, 2014 10:52:00 48577 Neck Ultrasound EXAMINATION: NECK SONOGRAM HISTORY: 59-year-old [...] examination documented in this encounter Care Teams Cage/Vault Supervisor Relationship Specialty Start Date End Date Dale Funes MD [email or web address] [address] PCP - General 07/08/09 06/24/19 documented as of this encounter
--- OUTSIDE RECORDS SUMMARY | 2024-11-03 21:18 | XMS_ITS | Encounter Summary ---
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
--- OUTSIDE RECORDS SUMMARY | 2024-11-03 21:18 | XMS_ITS | Encounter Summary ---
Author Organization [facility] Healthcare Address [address] [place] [address] Care Team Providers Care Uc Architect Name Role Phone Dale Funes MD Primary Care Provider [phone] Encounter Details Date Type Department Care Team (Late st Contact Info) Description 06/23/2009 7:10 AM CDT - 06/23/2009 2:45 PM CDT Hospital Encounter [facility] Tristin Meza MD [address] [place] [id number] Other chest pain; Essential hypertension; Other and unspecified hyperlipidemia; Esophageal reflux Social History Tobacco Use Types Packs/Day Years Used Date Smoking Tobacco: Never Assessed Sex and Gender Information Value Date Recorded Sex Assigned at Not on file 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
--- OUTSIDE RECORDS SUMMARY | 2024-11-03 21:18 | XMS_ITS | Clinical Summary ---
Author Organization [facility] Address [address] [place] [address] Care Team Providers Care Catering Chef Name Role Phone Dale Funes MD Primary Care Provider [phone] Source Comments [facility],non-owned Affiliates and Associated Physician Practices is amultiple site organization consisting of ambulatory clinics and hospital sitesin [place], [place], [place] and [place]. This disclosure is being madepursuant to the Care Everywhere program and may not contain all information available regarding this patient. Last updated 18.[facility] Social History Tobacco Use Types Packs/Day Years Used Date Smoking Tobacco: Never Assessed Sex and Gender Information Value Date Recorded Sex Assigned at Not on file Gender Identity Not on file Sexual Orientation Not on file Last Filed Vital Signs Vital Sign Reading Time Taken Comments Blood Pressure 113/72 12/26/2017 12:23 PM SENIOR STORAGE ADMINISTRATOR Pulse 75 12/26/2017 12:23 PM SENIOR STORAGE ADMINISTRATOR Temperature 36.3 ??C (97.4 ??F) 12/26/2017 8:19 AM CS T Respiratory Rate 13 12/26/2017 12:23 PM SENIOR STORAGE ADMINISTRATOR Oxygen Saturation 94% 12/26/2017 12:23 PM SENIOR STORAGE ADMINISTRATOR Inhaled Oxygen Concentration - - Weight 127.9 kg (282 lb) 12/26/2017 8:15 AM SENIOR STORAGE ADMINISTRATOR Height 185.4 cm (6' 1 ) 12/26/2017 8:15 AM SENIOR STORAGE ADMINISTRATOR Body Mass Index 37.21 12/26/2017 8:15 AM SENIOR STORAGE ADMINISTRATOR Plan of Treatment Health Maintenance Due Date [...] RNA QN PCR Routine 11/13/2017 1:39 PM SENIOR STORAGE ADMINISTRATOR from Last 3 Months or Most Recently Relevant to Health Maintenance Results * HEPATITIS C AB W/RFLX TO HCV RNA QN PCR (11/13/2017 1:39 PM SENIOR STORAGE ADMINISTRATOR) Hepatitis C Antibody 0.2 0.0 - 0.9 s/co ratio [facility] ([facility]) 11/13/2017 1:39 PM SENIOR STORAGE ADMINISTRATOR 11/13/2017 Narrative [facility] ([facility]) - 11/14/2017 7:11 AM SENIOR STORAGE ADMINISTRATOR Performed at: ??01 - [facility] [address] ??[id number] [place]: Wayne Kelly PhD, Phone: ??[phone] Christos Kt Blum MD LAB - CHEMISTRY ORDERABLES [facility]) [address] [place] [address] from Last 3 Months or Most Recently Relevant to Health Maintenance Care Teams Catering Chef Relationship Specialty Start Date End Date Dale Funes MD PCP - General 03/14/18
--- OUTSIDE RECORDS SUMMARY | 2024-11-03 21:18 | XMS_ITS | Encounter Summary ---
Author Organization [facility] Healthcare Address [address] [place] [address] Care Team Providers Care Wire Drawing Machine Operator Name Role Phone Dale Funes MD Unavailable [phone] Dale Funes MD Primary Care Provider [phone] Reason for Visit * Auth/Cert (Routine) Specialty Diagnoses / Procedures Referred By Contac t Referred To Contact Diagnoses Other diseases of stomach and duodenum Other diseases of stomach and duodenum [K31.89] Procedures AK EDG US EXAM SURGICAL ALTER STOM DUODENUM/JEJUNUM EUS SC/OA/Interventional Referral ID Status Reason Start Date Expiration Date Visits Re quested Visits Authorized [id number] 1 1 Encounter Details Date Type Department Care Team (Late st Contact Info) Description 03/10/2023 8:01 AM CDT Anesthesia Event [facility] [address] [facility] [address] [place] [address] Juan Montanez MD [address] [facility] [address] [place] [address] Asha Del Cid MLT Anesthesia Record Procedure [...] on file 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 [place] ARTHRD ANT INTERBODY MIN DSC CRV BELOW C2 Cervical Vertebral Fusion - (Added by TW Conv) ? ? [place] RPR UMBILICAL HERNIA < 5 YRS REDUCIBLE [...] -- -- Chiqui Wynn MD calcium carbonate ([id number]-760) 1,250 MG (500 mg of elemental calcium) [...] unit capsule 03/09/2023 -- -- Provider, MD Chiqui Current Facility-Administered Medications: ??? ondansetron (ZOFRAN) injection [...] Family history of emphysema - (Added by [place] [facility] Conv) ??? Heart disease Mother Family history of cardiac disorder - (Added by [place] [facility] Conv) ??? Heart disease Other Family history of cardiac disorder - (Added by [place] [facility] Conv) ??? Hypertension Other Family history of hypertension - (Added by [place] [facility] Conv) Vitals: 03/10/23 0729 BP: 149/95 Pulse: [...] Medication protocol when under care of a BAKER HELPER Planned anesthesia: MAC Induction: Induction: intravenous. Postoperative Plan: No plan for postoperative opioid use. No postoperative mechanical ventilation intended. Patient's planned disposition post procedure is Outpatient. Informed Consent: Discussed plan with BAKER HELPER. Anesthesia plan and risks discussed with patient. [...] mL/hr documented in this encounter Care Teams Wire Drawing Machine Operator Relationship Specialty Start Date End Date Dale Funes MD [email or web address] [address] PCP - General Family Medicine 03/07/23 Dale Funes MD [email or web address] [address] 06/25/19 documented as of this encounter
--- OUTSIDE RECORDS SUMMARY | 2024-11-03 21:18 | XMS_ITS | Encounter Summary ---
Author Organization [facility] Facility Care Team Providers Care Carton Stamper Name Role Phone Unavailable Primary Care Provider Unavailabl e Encounter Details Date Type Department Care Team (Late st Contact Info) Description 04/15/2008 2:14 PM CDT - 04/15/2008 11:59 PM CDT Hospital Encounter [facility] Theo Allison MD [address] [place] [address] Social History Tobacco Use Types Packs/Day Years Used Date Smoking Tobacco: Never Assessed Sex and Gender Information Value Date Recorded Sex Assigned at Not on file 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
--- OUTSIDE RECORDS SUMMARY | 2024-11-03 21:18 | XMS_ITS | Encounter Summary ---
Author Organization 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 ??(Diabetes Care 31:2523-9558, 2008). ??The eAG is not equivalent to [...] ORDERABLES Final Res ult Performing Organization Address [facility]/State/ZIP Co de Phone Number HISTORICAL RESULTS [...] ORDERABLES Final Res ult Performing Organization Address City/State/[facility] Co de Phone Number HISTORICAL RESULTS * Discharge Laboratory Cumulative Report (07/01/2014 12:00 AM CDT) 07/01/2014 Narrative HISTORICAL RESULTS - 07/01/2014 7:22 PM CDT ?[facility] ?Department of Laboratories ? [address] [facility] [place] ? [place], [place] [address] Patient Name: ??LIBERTAD LORENZO Rec Number: [id number] Fin Number: ?[id number] Date: ?1955 Sex/Age: ? Male 59 years Admit Date: ?07/01/2014 Discharge Date: 07/01/2014 Doctor: ?Bandar Irving Facility: ?[facility] Location: ?CPAP Chart Printed: 07/01/2014 19:22 [...] TESTING children were not included. ??(Diabetes Care 31:8884-9249, 2008). ??The eAG is not equivalent to [...] medications documented in this encounter Care Teams Rock Wool Applicator Relationship Specialty Start Date End Date Dale Funes MD [address] [address] PCP - General 07/08/09 06/24/19 documented as of this encounter
--- OUTSIDE RECORDS SUMMARY | 2024-11-03 21:18 | XMS_ITS | Encounter Summary ---
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 Surgeon: Bandar Irving M.D. Dictating: Bandar Irivng M.D. Service Dt: 07/10/2014 OPERATIVE REPORT FIRST RN UTILIZATION MANAGEMENT UM: Tristin Langston M.D. ANESTHESIA: General. PREOPERATIVE DIAGNOSIS [...] 08/04/2014 01:48 P Bandar Irving M.D. TDC/mra #[id number] Editing MT: TD: 07/12/2014 06:08:00 cc: Bandar [...] Narrative 07/23/2014 11:29 AM CDT OUTSIDE IMAGES CEMENT LOADER, FINAL REPORT ACC# ??Date Time ??Exam [id number] Jul 23, 2014 09:43:00 [id number] [facility] Plain Film Reference [id number] Jul 23, 2014 09:45:[id number] [facility] Body CT Reference EXAMINATION: ?Images For Reference Purposes Only IMPRESSION: ?These images have been uploaded for Reference purposes only. ??There will be no separate report generated by a [facility] Radiologist. Requested By: Dictated By: ?? OUTSIDE IMAGES CEMENT LOADER, ?? on Jul 23 2014 11:29A This document has been electronically signed by: OUTSIDE IMAGES CEMENT LOADER, ??on Jul 23 2014 11:29A [id number] Procedure Note Provider, MD Chiqui - 02/22/2017 OUTSIDE IMAGES CEMENT LOADER, FINAL REPORT ACC# Date Time Exam Jul 23, 2014 09:43:00 [id number] [facility] Plain Film Reference [id number] Jul 23, 2014 09:45:[id number] [facility] Body CT Reference EXAMINATION: Images For Reference Purposes Only IMPRESSION: These images have been uploaded for Reference purposes only. There will be no separate report generated by a [facility] Radiologist. Requested By: Dictated By: OUTSIDE IMAGES CEMENT LOADER, on Jul 23 2014 11:29A This document has been electronically signed by: OUTSIDE IMAGES CEMENT LOADER, on Jul 23 2014 11:29A [id number] us Historical Provider IMG XR PROCEDURES Final R esult * XR Interpretation Of Outside Films (07/23/2014 9:43 AM CDT) Anatomical Region Laterality Modality N/A Radiographic Maryan ging 07/23/2014 9:43 AM CDT Narrative 07/23/2014 11:29 AM CDT OUTSIDE IMAGES CEMENT LOADER, FINAL REPORT ACC# ??Date Time ??Exam [id number] Jul 23, 2014 09:43:00 [id number] [facility] Plain Film Reference [id number] Jul 23, 2014 09:45:[id number] [facility] Body CT Reference EXAMINATION: ?Images For Reference Purposes Only IMPRESSION: ?These images have been uploaded for Reference purposes only. ??There will be no separate report generated by a [facility] Radiologist. Requested By: Dictated By: ?? OUTSIDE IMAGES CEMENT LOADER, ?? on Jul 23 2014 11:29A This document has been electronically signed by: OUTSIDE IMAGES CEMENT LOADER, ??on Jul 23 2014 11:29A [id number] Procedure Note Provider, Chiqui, - 02/22/2017 OUTSIDE IMAGES CEMENT LOADER, FINAL REPORT ACC# Date Time Exam [id number] Jul 23, 2014 09:43:00 [id number] [facility] Plain Film Reference [id number] Jul 23, 2014 09:45:[id number] [facility] Body CT Reference EXAMINATION: Images For Reference Purposes Only IMPRESSION: These images have been uploaded for Reference purposes only. There will be no separate report generated by a [facility] Radiologist. Requested By: Dictated By: OUTSIDE IMAGES CEMENT LOADER, on Jul 23 2014 11:29A This document has been electronically signed by: OUTSIDE IMAGES CEMENT LOADER, on Jul 23 2014 11:29A [id number] us Historical Provider IMG XR PROCEDURES Final [...] agrees with it. ACC# ??Date Time ??Exam [id number] Jul 21, 2014 13:04:00 [id number] [facility] NucMed Consult ACC# ??Date Time ??Exam [id number] Jul 21, 2014 13:04:00 [id number] [facility] NucMed Consult EXAMINATION: ?? RADIOLOGY CONSULTATION ON OUTSIDE IMAGING STUDY STUDY INITIALLY PERFORMED: ??07/15/2014 at [place], [place]. TYPE OF STUDY: 24-hour I-123 thyroid imaging. The images available for review consisted of planar thyroid scintigraphy in anterior, PERUVIAN, and GRIJALVA projections. The protocol was adequate [...] images may or may not represent the duck[place] source data set and thus may contain changes that may lower the accuracy of this second-opinion interpretation. :: ?? Requested By: Dictated By: ?? LISA RENAE M.D. ??on Jul 21 2014 ??3:23P This document has been electronically signed by: CASSANDRA RIVAS M.D. on Jul 21 2014 ??5:05P [id number] Procedure Note Provider, MD Chiqui - 04/26/2017 CASSANDRA RIVAS M.D. LISA RENAE M.D. FINAL REPORT The radiology attending physician has personally reviewed this study, and has reviewed and/or edited this written report and agrees with it. ACC# Date Time Exam [id number] Jul 21, 2014 13:04:00 [id number] [facility] NucMed Consult ACC# Date Time Exam [id number] Jul 21, 2014 13:04:00 [id number] [facility] NucMed Consult EXAMINATION: RADIOLOGY CONSULTATION ON OUTSIDE IMAGING STUDY STUDY INITIALLY PERFORMED: 07/15/2014 at [place], [place]. TYPE OF STUDY: 24-hour I-123 thyroid imaging. The images available for review consisted of planar thyroid scintigraphy in anterior, PERUVIAN, and GRIJALVA projections. The protocol was adequate [...] images may or may not represent the duck[place] source data set and thus may contain changes that may lower the accuracy of this second-opinion interpretation. :: Requested By: Dictated By: LISA RENAE M.D. on Jul 21 2014 3:23P This document has been electronically signed by: CASSANDRA RIVAS M.D. on Jul 21 2014 5:05P [id number] us Historical Provider MD ALEX NM PROCEDURES [...] agrees with it. ACC# ??Date Time ??Exam [id number] Jul 21, 2014 13:00:00 [id number] [facility] Neuro Consult ACC# ??Date Time ??Exam [id number] Jul 21, 2014 13:00:00 [id number] [facility] Neuro Consult EXAMINATION: ?? RADIOLOGY CONSULTATION ON OUTSIDE IMAGING STUDY STUDY INITIALLY PERFORMED: ??On 06/10/[address] [facility]. ?? TYPE OF STUDY: Multiple CT images [...] is normal. The limited view of the [place] is unremarkable. The visualized portions [...] images may or may not represent the [place] source data set and thus may contain changes that may lower the accuracy of this second-opinion interpretation. ?? Requested By: Dictated By: ?? EDWARD CHOI, ?? on Jul 21 2014 ??3:33P This document has been electronically signed by: TRISTIN HALL M.D. on Jul 22 2014 10:15P [id number] Procedure Note Provider, MD Chiqui - 02/22/2017 TRISTIN HALL M.D. EDWARD CHOI, FINAL REPORT The radiology attending physician has personally reviewed this study, and has reviewed and/or edited this written report and agrees with it. ACC# Date Time Exam [id number] Jul 21, 2014 13:00:00 [id number] [facility] Neuro Consult ACC# Date Time Exam [id number] Jul 21, 2014 13:00:00 [id number] [facility] Neuro Consult EXAMINATION: RADIOLOGY CONSULTATION ON OUTSIDE IMAGING STUDY STUDY INITIALLY PERFORMED: On 06/10/[address] [facility]. TYPE OF STUDY: Multiple CT images of [...] is normal. The limited view of the [place] is unremarkable. The visualized portions [...] images may or may not represent the [place] source data set and thus may contain changes that may lower the accuracy of this second-opinion interpretation. Requested By: Dictated By: EDWARD CHOI on Jul 21 2014 3:33P This document has been electronically signed by: TRISTIN HALL M.D. on Jul 22 2014 10:15P [id number] us Historical Provider MD ALEX XR PROCEDURES Final R esult * Discharge Laboratory Cumulative Report (07/10/2014 5:22 PM CDT) 07/10/2014 5:22 PM CDT Narrative HISTORICAL RESULTS - 07/10/2014 5:22 PM CDT ? [facility] ? Department of Laboratories ? One [facility] ? [place] ?[facility] [address] ?Private Outpatient ?Private ? Physician ? Office Patient Name: ? LIBERTAD LORENZO [facility] Rec Number: ?? [id number] Date of : ?1955 Gender/Age: ? Male [...] ORDERABLES Noemi l Result Performing Organization Address [facility] de Phone Number HISTORICAL RESULTS * Blood glucose, POC (07/10/2014 3:43 PM CDT) Pathologist [facility] Glucose, POC, bld 94 70 - 199 mg/dl HISTORICAL RESULTS Blood specimen (specimen) 07/10/2014 3:43 PM CDT Bandar Irving MD LAB BLOOD ORDERABLES Fin al Result Performing Organization Address [facility] Co de Phone Number HISTORICAL RESULTS * Blood glucose, POC (07/10/2014 12:34 PM CDT) Pathologist [facility] Glucose, POC, bld 103 70 - 199 [...] disease documented in this encounter Care Teams Forest Officer Relationship Specialty Start Date End Date Dale Funes MD [address] [address] PCP - General 07/08/09 06/24/19 documented as of this encounter
--- OUTSIDE RECORDS SUMMARY | 2024-11-03 21:18 | XMS_ITS | Encounter Summary ---
Author Organization [facility] Facility Care Team Providers Care Plisse Machine Operator Name Role Phone Unavailable Primary Care Provider Unavailabl e Encounter Details Date Type Department Care Team (Late st Contact Info) Description 04/15/2008 4:30 PM CDT - 04/21/2008 12:01 AM CDT Hospital Encounter [facility] Theo Allison MD [address] [place] [address] Social History Tobacco Use Types Packs/Day Years Used Date Smoking Tobacco: Never Assessed Sex and Gender Information Value Date Recorded Sex Assigned at Not on file 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
--- OUTSIDE RECORDS SUMMARY | 2024-11-03 21:18 | XMS_ITS | Encounter Summary ---
Author Organization [facility] Address [address] [facility] [place] [address] Care Team Providers Care Marketing Analytics Specialist Name Role Phone Unavailable Primary Care Provider Unavailabl e Encounter Details Date Type Department Care Team (Latest Contact Info) Description 11/29/2017 Hospital Outpatient Visit [facility] Gastroenterology and Hepatology [address] [place] [address] Christos Blum MD [address] [place] [address] Discharge Disposition: Home or Self Care Social [...]
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
--- OUTSIDE RECORDS SUMMARY | 2024-11-03 21:18 | XMS_ITS | Referral Summary ---
Author Organization [facility] Address [address] [facility] [place] [address] Care Team Providers Care Clinical Manager Name Role Phone Dale Funes MD Primary Care Provider [phone] Source Comments [facility],non-owned Affiliates and Associated Physician Practices is amultiple site organization consisting of ambulatory clinics and hospital sitesin [place], [place], [place] and [place]. This disclosure is being madepursuant to the Care Everywhere program and may not contain all information available regarding this patient. Last updated 18.[facility] Social History Tobacco Use Types Packs/Day Years Used Date Smoking Tobacco: Never Assessed Sex and Gender Information Value Date Recorded Sex Assigned at Not on file Gender Identity Not on file Sexual Orientation Not on file Last Filed Vital Signs Vital Sign Reading Time Taken Comments Blood Pressure 113/72 12/26/2017 12:23 PM SAS ANALYST Pulse 75 12/26/2017 12:23 PM SAS ANALYST Temperature 36.3 ??C (97.4 ??F) 12/26/2017 8:19 AM CS T Respiratory Rate 13 12/26/2017 12:23 PM SAS ANALYST Oxygen Saturation 94% 12/26/2017 12:23 PM SAS ANALYST Inhaled Oxygen Concentration - - Weight 127.9 kg (282 lb) 12/26/2017 8:15 AM SAS ANALYST Height 185.4 cm (6' 1 ) 12/26/2017 8:15 AM SAS ANALYST Body Mass Index 37.21 12/26/2017 8:15 AM SAS ANALYST Plan of Treatment Not on file Procedures Procedure Name Priority Date/Time Associated Diagnosis Comments HEPATITIS C AB W/RFLX TO HCV RNA QN PCR Routine 11/13/2017 1:39 PM SAS ANALYST from Last 3 Months or Most Recently Relevant to Health Maintenance Results * HEPATITIS C AB W/RFLX TO HCV RNA QN PCR (11/13/2017 1:39 PM SAS ANALYST) Hepatitis C Antibody 0.2 0.0 - 0.9 s/co ratio [facility] 11/13/2017 1:39 PM SAS ANALYST 11/13/2017 Narrative [facility]) - 11/14/2017 7:11 AM SAS ANALYST Performed at: ?? - [facility] [address] [place] [address] ??[id number] Machinery Repair Maintenance Supervisor: Wayne Kelly PhD, Phone: ??[phone] Christos Kt Blum MD LAB - CHEMISTRY ORDERABLES [facility] ([facility]) [address] [place] [address], [facility] from Last 3 Months or Most Recently Relevant to Health Maintenance Care Teams Clinical Manager Relationship Specialty Start Date End Date Dale Funes MD PCP - General 03/14/18
--- OUTSIDE RECORDS SUMMARY | 2024-11-03 21:18 | XMS_ITS | Encounter Summary ---
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, wasps and bees; Unspecified place of occurrence; External cause status; Essential hypertension Social History Tobacco Use Types Packs/Day Years Used Date Smoking Tobacco: Never Assessed Sex and Gender Information Value Date Recorded Sex Assigned at Not on file 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
--- OUTSIDE RECORDS SUMMARY | 2024-11-03 21:18 | XMS_ITS | Encounter Summary ---
Author Organization [facility] Care Team Providers Care Head Of Human Resources Name Role Phone Dale Funes MD Primary Care Provider [phone] Encounter Details Date Type Department Care Team (Late st Contact Info) Description 07/01/2014 2:31 PM CDT [facility] [address] [place] [address] [address] [place] [address] Social History Tobacco Use Types Packs/Day Years Used Date Smoking Tobacco: Former Sex and Gender Information Value Date Recorded Sex Assigned at Not on file 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 Images For Reference Purposes Only IMPRESSION: ? These images are for Reference purposes only and have not been reviewed by [facility] Radiology. ??There will be no report generated by a [facility] Radiologist. Requested By: Dictated By: ?? OUTSIDE IMAGES PRINCIPAL CONSULTING ENGINEER, ?? on Jun ??2013 ??3:14P This document has been electronically signed by: OUTSIDE IMAGES PRINCIPAL CONSULTING ENGINEER, ??on Jun ??2013 ??3:14P [id number] Procedure Note Provider, Historical, - 02/22/2017 OUTSIDE IMAGES PRINCIPAL CONSULTING ENGINEER, FINAL REPORT ACC# Date Time Exam [id number] Jul 01, 2014 14:52:[id number] [facility] Body CT Reference [id number] Jul 01, 2014 14:58:00 [id number] [facility] Neuro Reference EXAMINATION: Images For Reference Purposes Only IMPRESSION: These images are for Reference purposes only and have not been reviewed by [facility]. There will be no report generated by a [facility] Radiologist. Requested By: Dictated By: OUTSIDE IMAGES PRINCIPAL CONSULTING ENGINEER, on Jul 01 2014 3:14P This document has been electronically signed by: OUTSIDE IMAGES PRINCIPAL CONSULTING ENGINEER, on Jul 01 2014 3:14P [id number] us Historical Provider IMEnriqueta IR PROCEDURES Final R esult * XR Interpretation Of Outside Films (07/01/2014 2:52 PM CDT) Anatomical Region Laterality Modality N/A Radiographic Maryan ging 07/01/2014 2:52 PM CDT Narrative 07/01/2014 3:14 PM CDT OUTSIDE IMAGES PRINCIPAL CONSULTING ENGINEER, FINAL REPORT ACC# ??Date Time ??Exam [id number] Jul 01, 2014 14:52:[id number] [facility] Body CT Reference [id number] Jul 01, 2014 14:58:00 [id number] [facility] Neuro Reference EXAMINATION: ? Images For Reference Purposes Only IMPRESSION: ? These images are for Reference purposes only and have not been reviewed by [facility]. ??There will be no report generated by a [facility] Radiologist. Requested By: Dictated By: ?? OUTSIDE IMAGES PRINCIPAL CONSULTING ENGINEER, ?? on Jun ??2013 ??3:14P This document has been electronically signed by: OUTSIDE IMAGES PRINCIPAL CONSULTING ENGINEER, ??on Jun ??2013 ??3:14P [id number] Procedure Note Provider, Chiqui, - 02/22/2017 OUTSIDE IMAGES PRINCIPAL CONSULTING ENGINEER, FINAL REPORT ACC# Date Time Exam [id number] Jul 01, 2014 14:52:00 [id number] [facility] Body CT Reference [id number] Jul 01, 2014 14:58:00 [id number] [facility] Neuro Reference EXAMINATION: Images For Reference Purposes Only IMPRESSION: These images are for Reference purposes only and have not been reviewed by [facility]. There will be no report generated by a [facility] Radiologist. Requested By: Dictated By: OUTSIDE IMAGES PRINCIPAL CONSULTING ENGINEER, on Jul 01 2014 3:14P This document has been electronically signed by: OUTSIDE IMAGES PRINCIPAL CONSULTING ENGINEER, on Jul 01 2014 3:14P [id number] Historical Provider MD ALEX XR PROCEDURES Final R esult * OUSTIDE NEURO REFERENCE (07/01/2014 2:45 PM CDT) Anatomical Region Laterality Modality N/A Radiographic Maryan ging 07/01/2014 2:45 PM CDT Narrative 07/01/2014 2:52 PM CDT OUTSIDE IMAGES PRINCIPAL CONSULTING ENGINEER, FINAL REPORT ACC# ??Date Time ??Exam [id number] Jul 01, 2014 14:45:00 [id number] [facility] Neuro Reference EXAMINATION: ? Images For Reference Purposes Only IMPRESSION: ? These images are for Reference purposes only and have not been reviewed by [facility]. ??There will be no report generated by a [facility] Radiologist. Requested By: Dictated By: ?? OUTSIDE IMAGES PRINCIPAL CONSULTING ENGINEER, ?? on Jun ??2013 ??2:52P This document has been electronically signed by: OUTSIDE IMAGES PRINCIPAL CONSULTING ENGINEER, ??on Jun ??2 2013 ??2:52P [id number] Procedure Note Provider, MD Chiqui - 02/22/2017 OUTSIDE IMAGES PRINCIPAL CONSULTING ENGINEER, FINAL REPORT ACC# Date Time Exam [id number] Jul 01, 2014 14:45:00 [id number] [facility] Neuro Reference EXAMINATION: Images For Reference Purposes Only IMPRESSION: These images are for Reference purposes only and have not been reviewed by [facility]. There will be no report generated by a [facility] Radiologist. Requested By: Dictated By: OUTSIDE IMAGES PRINCIPAL CONSULTING ENGINEER, on Jul 01 2014 2:52P This document has been electronically signed by: OUTSIDE IMAGES PRINCIPAL CONSULTING ENGINEER, on Jul 01 2014 2:52P [id number] us Historical Provider IMEnriqueta IR PROCEDURES Final R esult documented in this encounter Visit Diagnoses Not on filedocumented in this encounter Care Teams Head Of Human Resources Relationship Specialty Start Date End Date Dale Funes MD [address] [address] PCP - General 07/08/09 06/24/19 documented as of this encounter
--- OUTSIDE RECORDS SUMMARY | 2024-11-03 21:18 | XMS_ITS | Encounter Summary ---
Author Organization [facility] Address [address] [place] [address] Care Team Providers Care Career Center Director Name Role Phone Unavailable Primary Care Provider Unavailabl e Encounter Details Date Type Department Care Team (Latest Contact Info) Description 11/02/2017 Hospital Outpatient Visit [facility] Gastroenterology and Hepatology [address] [place] [address] Christos Blum MD [address] [place] [address] Discharge Disposition: Home or Self Care Social [...]
--- OUTSIDE RECORDS SUMMARY | 2024-11-03 21:18 | XMS_ITS | Encounter Summary ---
Author Organization [facility] Healthcare Address [address] [place] [address] Care Team Providers Care Gas Stove Servicer Helper Name Role Phone Dale Funes MD Primary Care Provider [phone] Encounter Details Date Type Department Care Team (Late st Contact Info) Description 12/13/2018 12:05 AM RADIOLOGICAL TECHNICIAN Ancillary Procedure [facility] - Imaging [phone] Theo Waller MD [address] [facility] [address] [place] [address] Social History Tobacco Use Types Packs/Day Years Used Date Smoking Tobacco: Former Sex and Gender Information Value Date Recorded Sex Assigned at Not on file Legal Sex Male 1:06 AM RADIOLOGICAL TECHNICIAN Gender Identity Not on file Sexual Orientation Not on file documented as of this encounter Plan of Treatment Not on file documented as of this encounter Procedures Procedure Name Priority Date/Time Associated Diagnosis Comments MRI TRANSFER OF OUTSIDE FILMS Routine 12/13/2018 12:05 AM RADIOLOGICAL TECHNICIAN documented in this encounter Results * MRI Outside Reference (12/13/2018 12:05 AM RADIOLOGICAL TECHNICIAN) Narrative [facility] - 07/30/2019 3:17 PM CDT This order has been auto-finalized and does not contain a result. Theo Waller MD IMG MRI PROCEDURES Final Resu lt RAD_PACS_[facility] documented in this encounter Visit Diagnoses Not on filedocumented in this encounter Care Teams Gas Stove Servicer Helper Relationship Specialty Start Date End Date Dale Funes MD [address] [address] PCP - General 07/08/09 06/24/19 documented as of this encounter
--- OUTSIDE RECORDS SUMMARY | 2024-11-03 21:18 | XMS_ITS | Encounter Summary ---
Author Organization [facility] Healthcare Address [address] [place] [address] Care Team Providers Care Geospatial Information Scientist Name Role Phone No, Physician Primary Care Provider [phone] Dale Funes MD Unavailable [phone] Encounter Details Date Type Department Care Team (Late st Contact Info) Description 10/14/2021 10:15 PM SUPERVISOR COMPRESSED YEAST Lab [address] [address] Acute nasopharyngitis Social History Tobacco Use Types Packs/Day Years Used Date Smoking Tobacco: Former Smokeless Tobacco: Never Alcohol Use Standard Drinks/Week Comments Yes 0 (1 standard drink = 0.6 oz pur e alcohol) PHQ-2 Answer Date Recorded PHQ-2 Total Score 1 05/21/2020 Sex and Gender Information Value Date Recorded Sex Assigned at Not on file Legal Sex Male 1:06 AM SUPERVISOR COMPRESSED YEAST Gender Identity Not on file Sexual Orientation Not on file documented as of this encounter Miscellaneous Notes * Result Encounter Note - Silvia Segovia MA - 10/15/2021 11:32 AM SUPERVISOR COMPRESSED YEAST Pt aware of negative covid result, due to pt being fully vaccinated, aware to isolate until sx improvement as well as 24 hours fever free w/o the use of fever reducing medications. Pt verbalized understanding of all the above. RVISOR COMPRESSED YEAST documented in this encounter Plan of Treatment Not on file documented as of this encounter Procedures Procedure Name Priority Date/Time Associated Diagnosis Comments COVID-19 CORONAVIRUS RNA Routine 10/14/2021 4:11 PM SUPERVISOR COMPRESSED YEAST Acute nasopharyngitis documented in this encounter Results * COVID-19 Coronavirus RNA Nasopharyngeal (10/14/2021 4:11 PM SUPERVISOR COMPRESSED YEAST) COVID-19 RNA Negative Negative [facility] Employeed in healthcare? No [facility] Group care resident? No [facility] Hospitalized? No [facility] Is patient in ICU? No [facility] Symptomatic as defined by CDC? Yes [facility] Nasopharyngeal 10/14/2021 4: 11 PM SUPERVISOR COMPRESSED YEAST 10/14/2021 10:19 PM SUPERVISOR COMPRESSED YEAST Narrative [facility] - 10/14/2021 11:27 PM SUPERVISOR COMPRESSED YEAST What is the reason for testing?->Symptoms of COVID-19 in high-risk group Date of Symptom Onset->10/09/21 Idania Richardson ELEMENTARY PRINCIPAL LAB MICROBIOLOGY - GENERAL ORDERABLES Final Result [facility] [address] Department of Laboratories [place] [id number] documented in this encounter Visit Diagnoses Diagnosis Acute nasopharyngitis Acute nasopharyngitis (common cold) documented in this encounter Additional Health Concerns Infection Onset Date Last Indicated Resolved Time COVID: Suspected 10/14/2021 10/14/2021 10/14/2021 11:28 PM SUPERVISOR COMPRESSED YEAST documented as of this encounter Care Teams Geospatial Information Scientist Relationship Specialty Start Date End Date No, Physician PCP - General 06/25/19 03/06/23 Dale Funes MD [address] [address] 06/25/19 documented as of this encounter
--- OUTSIDE RECORDS SUMMARY | 2024-11-03 21:18 | XMS_ITS | Encounter Summary ---
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 [facility] ? Department of Laboratories ? One [facility] ? [place] ?[place] [address] ?[facility] ?CAM 5-D ? Patient Name: ? BJ LIBERTAD Vero Med Rec Number: ?? [id number] Date of : ?1955 Gender/Age: ? Male [...] ORDERABLES Fi nal Result Performing Organization Address City/[facility] de Phone Number HISTORICAL RESULTS * Serum calcium (08/28/2014 9:23 AM CDT) Calcium 10.1 8.6 - 10.3 mg/dl HISTORICAL RESULTS Serum 08/28/2014 9:23 AM CDT Jose C Abad MD LAB BLOOD ORDERABLES Fi nal Result Performing Organization Address [facility] de Phone Number HISTORICAL RESULTS * Serum thyroxine (T4), free (08/28/2014 9:23 AM CDT) Free T4 1.42 0.90 - 1.80 ng/dl HISTORICAL RESULTS Serum 08/28/2014 9:23 AM CDT Jose C Abad MD LAB BLOOD ORDERABLES Fi nal Result Performing Organization Address City/[facility] de Phone Number HISTORICAL RESULTS * Plasma parathyroid hormone (PTH), intact (08/28/2014 9:23 AM CDT) PTH, intact 16 14 - 72 pg/ml HISTORICAL RESULTS Plasma 08/28/2014 9:23 AM CDT Jose C Abad MD LAB BLOOD ORDERABLES Fi nal Result Performing Organization Address City/[facility] Co de Phone Number HISTORICAL RESULTS documented in this encounter Visit Diagnoses Diagnosis Disorder of thyroid Unspecified disorder of thyroid documented in this encounter Care Teams Screen Cutter And Trimmer Relationship Specialty Start Date End Date Dale Funes MD [address] [address] PCP - General 07/08/09 06/24/19 documented as of this encounter
--- OUTSIDE RECORDS SUMMARY | 2024-11-03 21:18 | XMS_ITS | Encounter Summary ---
Author Organization [facility] Healthcare Address [address] [place] [address] Care Team Providers Care Academic Associate Name Role Phone Unavailable Primary Care Provider Unavailabl e Encounter Details Date Type Department Care Team (Late st Contact Info) Description 03/15/2009 9:31 PM CDT - 03/15/2009 11:15 PM CDT Hospital Encounter [facility] Pedro Aquino MD [address] [place] [address] Dale Funes MD [address] [address] Cellulitis and abscess of foot excluding toe; Plantar fascial fibromatosis Social History Tobacco Use Types Packs/Day Years Used Date Smoking Tobacco: Never Assessed Sex and Gender Information Value Date Recorded Sex Assigned at Not on file 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
--- OUTSIDE RECORDS SUMMARY | 2024-11-03 21:18 | XMS_ITS | Encounter Summary ---
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 Surgeon: Jose C Abad M.D. Dictating: Jose C Abad M.D. Service Dt: 08/12/2014 OPERATIVE REPORT FIRST ESTATE TAX EXAMINER: Curtis Negro M.D. PREOPERATIVE DIAGNOSIS (ES): Enlarged [...] Abad M.D. 08/13/2014 11:43 A Mireille Langford/shaun #[id number] Editing MT: TD: 08/12/2014 16:11:00 cc: Jose C Abad M.D. documented in this encounter [...] HISTORICAL RESULTS - 08/14/2014 11:20 AM CDT ?[facility] ?Department of Laboratories ? One [facility] [address] ? [place] [address] Patient Name: ??LIBERTAD LORENZO [facility] Rec Number: [id number] Fin Number: ?[id number] Date: ?1955 Sex/Age: ? Male 59 years Admit Date: ?08/12/2014 Discharge Date: 08/14/2014 Doctor: ?Jose C Abad Facility: ?[facility] Location: ?[id number] Chart Printed: 08/14/2014 11:20 ?? * Abnormal [...] 08/13/2014 11:2 0 PM CDT Linsey Andrews ELECT EQUIP MAINT ENG LAB BLOOD ORDERABLES Fin al Result HISTORICAL RESULTS * CHEST RADIOGRAPHY, FRONTAL (AP), LATERAL (08/13/2014 1:26 PM CDT) Anatomical Region Laterality Modality N/A Radiographic Maryan ging 08/13/2014 1:26 PM CDT Narrative 08/13/2014 2:56 PM CDT Mrieille WRIGHT M.D. FINAL REPORT The radiology attending physician has personally reviewed this study, and has reviewed and/or edited this written report and agrees with it. ACC# ??Date Time ??Exam [id number] Aug 13, 2014 13:26:00 63010 Chest 2 views Frontl & Lat ACC# ??Date Time ??Exam [id number] Aug 13, 2014 13:26:00 52450 Chest 2 views Frontl & Lat EXAMINATION: [...] LOERA M.D. on Aug 13 2014 ??2:56P [id number] Procedure Note Provider, MD Chiqui - 02/22/2017 Mireille WRIGHT M.D. FINAL REPORT The radiology attending physician has personally reviewed this study, and has reviewed and/or edited this written report and agrees with it. ACC# Date Time Exam [id number] Aug 13, 2014 13:26:00 14543 Chest 2 views Frontl & Lat ACC# Date Time Exam [id number] Aug 13, 2014 13:26:00 83247 Chest 2 views Frontl & Lat EXAMINATION: [...] LOERA M.D. on Aug 13 2014 2:56P [id number] Historical Provider IMG XR PROCEDURES Final R esult * (ABNORMAL) Serum calcium (08/13/2014 11:32 AM CDT) Calcium 8.4(L) 8.6 - 10.3 mg/dl HISTORICAL RESULTS Serum 08/13/2014 11:3 2 AM CDT Curtis Negro MD LAB BLOOD ORDERABLES Final R esult Performing Organization Address City/State/[facility] Co de Phone Number [...] ORDERABLES Final R esult Performing Organization Address [facility] Co de Phone Number HISTORICAL RESULTS documented [...] examination documented in this encounter Care Teams Lab Tester Relationship Specialty Start Date End Date Dale Funes MD [address] [address] PCP - General 07/08/09 06/24/19 documented as of this encounter
--- OUTSIDE RECORDS SUMMARY | 2024-11-03 21:18 | XMS_ITS | Encounter Summary ---
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 - 07/30/2019 3:16 PM CDT This order has been auto-finalized and does not contain a result. us hTeo Waller MD IMG MRI PROCEDURES Final Resu lt RAD_PACS[facility] documented in this encounter Visit Diagnoses Not on filedocumented in this encounter Care Teams Concessions Manager Relationship Specialty Start Date End Date Dale Funes MD [address] [address] PCP - General 07/08/09 06/24/19 documented as of this encounter
--- OUTSIDE RECORDS SUMMARY | 2024-11-03 21:18 | XMS_ITS | Encounter Summary ---
Author Organization [facility] Facility Care Team Providers Care Stewardess Supervisor Name Role Phone Unavailable Primary Care Provider Unavailabl e Encounter Details Date Type Department Care Team (Late st Contact Info) Description 01/30/2008 12:57 PM CDT - 01/30/2008 11:59 PM CDT Hospital Encounter [facility] Theo Allison MD [address] [place] [address] Social History Tobacco Use Types Packs/Day Years Used Date Smoking Tobacco: Never Assessed Sex and Gender Information Value Date Recorded Sex Assigned at Not on file 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
--- OUTSIDE RECORDS SUMMARY | 2024-11-03 21:18 | XMS_ITS | Encounter Summary ---
Author Organization [facility] Healthcare Address [address] [place] [address] Care Team Providers Care Global Human Resources Director Name Role Phone No, Physician Primary Care Provider [phone] Dale Funes MD Unavailable [phone] Reason for Visit * Reason Onset Date Comments GI Preprocedure 03/03/2023 Encounter Details Date Type Department Care Team (Late st Contact Info) Description 03/03/2023 Telephone [facility] Specialty Services [address] [place] [address] Mary Beth Zamora RN GI Preprocedure Social [...] on file 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 Gender Identity Not on file Sexual [...] may get rescheduledDM-Metformin PRIOR PROCEDURE ISSUES: None IMPROVEMENT SPECIALIST/: NA IMPLANTS.: None Notes: DIABETIC MEDS Y/N: [...] [] Location limitations: Scheduling Scheduling location limitations: Sailing Instructor needed [] NA Language: POA [] NA Name: SPECIAL PROCEDURE INSTRUCTIONS Scheduling Notes Procedure information Date of procedure: 03/10/23 Time of procedure: 800 Arrival time:700 Location:[facility] Proceduralist:Lawrence Miranda Method of instructions: Datlon email [email or web address] 03/03/23 [x]Confirmation of ride/microarray operations vice president [x]Post anesthesia restrictions given [x]NPO Instructions: [x]Diet Instructions: [x]Take non-blood thinner prescription meds that morning [x]Bring med list, photo ID, insurance card, no valuables [x]Bring COVID vaccination card (if vaccinated) Bowel Prep Prep prescribed: DANIELA Method of Bowel Prep (RX): DANIELA [facility] [address] [address] Fax: Date: March 02, 2023 Ambulatory referral to Gastroenterology Patient: Teo Martinez [address] [facility] [id number] : 1955 SSN: [id number] Sex: M Insurance: Member ID: Referring Provider Information: LOUISE MORENO Fax: Referral Information: # Visits: 1 Referral Type: Consultation [3] Urgency: Routine Referral Reason: Specialty Services Required Start Date: March 02, 2023 End Date: To be determined by Insurer Diagnosis: Other diseases of stomach and duodenum (K31.89) Refer to Location: [facility] (All Locations) Refer to Provider: ROSARIO BRAVO Phone #: [phone] Fax #: [phone] Address: [address] [place] [address] GASTROENTEROLOGY, [place] [address] Please select the performing region: [facility] (All Locations) [167] # of visits: 1 Transcribed by: Lashae Steward EUS Received: Today [facility] Biliary Procedure Referrals Pool Rosario Bravo MD McGee, Kaylha EUS with az for antral nodule. Not urgent, no covid [...] on filedocumented in this encounter Care Teams Global Human Resources Director Relationship Specialty Start Date End Date No, Physician PCP - General 06/25/19 03/06/23 Dale Funes MD [address] [address] 06/25/19 documented as of this encounter
--- OUTSIDE RECORDS SUMMARY | 2024-11-03 21:18 | XMS_ITS | Encounter Summary ---
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 Pt verbalized understanding of all the above. SERVICER * Telephone Encounter - Silvia Segovia MA - 10/15/2021 11:31 AM ATM SERVICER ----- Message from Sarahy Patel NP sent at 10/15/2021 11:08 AM ATM SERVICER ----- [facility] CC Pool, pleasBJCMG CC Pool, [...] follow the 10 day and24 hour rule. SERVICER documented in this encounter Plan of Treatment Not on file documented as of this encounter Visit Diagnoses Not on filedocumented in this encounter Care Teams Optician Manager Relationship Specialty Start Date End Date No, Physician PCP - General 06/25/19 03/06/23 Dale Funes MD [address] [address] 06/25/19 documented as of this encounter
--- OUTSIDE RECORDS SUMMARY | 2024-11-03 21:18 | XMS_ITS | Encounter Summary ---
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 One [facility] [address] ? [place] [address] Patient Name: ??LIBERTAD LORENZO Rec Number: [id number] Fin Number: ?[id number] Date: ?1955 Sex/Age: ? Male 59 years Admit Date: ?07/31/2014 Discharge Date: 07/31/2014 Doctor: ?Jose C Abad Facility: ?[facility] Location: ?CPAP Chart Printed: 07/31/2014 19:23 [...] medications documented in this encounter Care Teams Filling And Packing Supervisor Relationship Specialty Start Date End Date Dale Funes MD [address] [address] PCP - General 07/08/09 06/24/19 documented as of this encounter
--- OUTSIDE RECORDS SUMMARY | 2024-11-03 21:18 | XMS_ITS | Encounter Summary ---
Author Organization 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
--- OUTSIDE RECORDS SUMMARY | 2024-11-03 21:18 | XMS_ITS | Encounter Summary ---
Author Organization [facility] Healthcare Address [address] [place] [address] Care Team Providers Care Trim Operator Name Role Phone Dale Funes MD Primary Care Provider [phone] Encounter Details Date Type Department Care Team (Late st Contact Info) Description 12/06/[address] [facility] - Imaging [phone] Theo Waller MD [address] [facility] [address] [place] [address] Social History Tobacco Use Types Packs/Day Years Used Date Smoking Tobacco: Former Sex and Gender Information Value Date Recorded Sex Assigned at Not on file Legal Sex Male 1:06 AM CARDIAC CARE UNIT NURSE Gender Identity Not on file Sexual Orientation Not on file documented as of this encounter Plan of Treatment Not on file documented as of this encounter Procedures Procedure Name Priority Date/Time Associated Diagnosis Comments CT OUTSIDE REFERENCE Routine 12/06/2018 12:00 AM CARDIAC CARE UNIT NURSE documented in this encounter Results * CT Outside Reference (12/06/2018 12:00 AM CARDIAC CARE UNIT NURSE) Narrative RAD[facility]PACS_[facility] - 07/30/2019 3:17 PM CDT This order has been auto-finalized and does not contain a result. us Theo Waller MD IMG CT PROCEDURES Final Resul t RAD_P[facility] documented in this encounter Visit Diagnoses Not on filedocumented in this encounter Care Teams Trim Operator Relationship Specialty Start Date End Date Dale Funes MD [address] [address] PCP - General 07/08/09 06/24/19 documented as of this encounter
--- OUTSIDE RECORDS SUMMARY | 2024-11-03 21:18 | XMS_ITS | Encounter Summary ---
Author Organization [facility] Healthcare Address [address] [place] [address] Care Team Providers Care Nuclear Medicine Specialist Name Role Phone Dale Funes MD Unavailable [phone] Dale Funes MD Primary Care Provider [phone] Reason for Visit * Auth/Cert (Routine) Specialty Diagnoses / Procedures Referred By Contbebeto t Referred To Contact Diagnoses Other diseases of stomach and duodenum Other diseases of stomach and duodenum [K31.89] Procedures TN EDG US EXAM SURGICAL ALTER STOM DUODENUM/JEJUNUM EUS SC/OA/Interventional Referral ID Status Reason Start Date Expiration Date Visits Re quested Visits Authorized [id number] 1 1 Encounter Details Date Type Department Care Team (Late st Contact Info) Description 03/10/2023 8:00 AM CDT - 03/10/2023 9:00 AM CDT Surgery [facility] [address] [facility] [place] [address] Rosario Bravo MD [address] [facility] [address] [place], [place] [id number] EUS SC/OA/Interventional Surgery Details Date/Time Status Location OR Service Patient Class Case Class Case Type Trauma Case? 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 Gender Identity Not on file Sexual Orientation [...] mg total) by mouth daily calcium carbonate (BPGT-TEN-754) 1,250 MG (500 mg of elemental calcium) tablet Take by mouth daily cholecalciferol (VITAMIN D-3) 50,000 unit capsule 68882 UNIT ORALLY WEEKLY 3 cyclobenzaprine (FLEXERIL) 10 [...] Neck Surgery - (Added by TW Conv) [place] ARTHRD ANT INTERBODY MIN DSC CRV BELOW C2 Cervical Vertebral Fusion - (Added by TW Conv) [place] RPR UMBILICAL HERNIA < 5 YRS REDUCIBLE [...] daily Yes Provider Historical, MD calcium carbonate (ZHNY-JRX-486) 1,250 MG (500 mg of elemental calcium) tablet Take by mouth daily Yes Chiqui Wynn MD cholecalciferol (VITAMIN D-3) 50,000 unit capsule 48923 UNIT ORALLY WEEKLY 12/18/22 Yes Chiqui Wynn [...] Male Attending MD: Rosario Bravo M.D. Room: [facility] ROOM 9 Note Status: Finalized [...] consent was obtained. The Olympus radial endosonoscope [id number] was introduced through the mouth, and advanced [...] 7 days, please contact my office at [phone]. - Return to referring physician as previously scheduled. Attending Participation: I was present and participated during the entire procedure, including non-beth portions. Electronically signed by Rosario Bravo MD Rosario Bravo M.D. 03/10/2023 8:54:53 AM . Number of Addenda: 0 Note Initiated On: 03/10/2023 7:50 AM Recognized by the [employer] for promoting quality [...] gastric) 03/10/2023 8:31 AM CDT Narrative PATHOLOGY [facility] - 03/14/2023 3:25 PM CDT EPIC results best viewed via link to PDF [facility] [place] [address] Note to Patients: This report may contain [...] : ??1955 (Age: 67) Address: ??[address] [place], [place] ??[address] Hospital #: ??[id number] Taken:03/10/2023 Received:03/10/2023 Reported: 03/14/2023 Patient Type: [facility] [...] Surgical Pathology and Flow Cytometry Departments at [facility] as part of an ongoing quality improvement analyst program and in compliance with federally mandated [...] Surgical Pathology and Flow Cytometry Departments of [facility]. ??It has not been cleared or approved by the U. S. Food and Drug Administration. IMAGES AND SCANNED DOCUMENTS, IF INCLUDED, ONLY VIEWABLE IN PDF VERSION OF REPORT us Rosario Bravo MD LAB PATHOLOGY ORDERABLES Final Result PATHOLOGY [facility] 3rd Floor [place], [place] [phone] * EUS (03/10/2023 7:50 AM CDT) Anatomical Region Laterality Modality Other Narrative Procedure Note Rosario Bravo MD - 03/10/2023 7:50 AM CDT [facility] ENDOS[facility] Patient Name: Libertad Lorenzo Procedure Date: 03/10/2023 7:50 AM Date of : 1955 Admit Type: Outpatient Age: 67 Gender: Male Attending MD: Rosario Bravo M.D. Room: [facility] ROOM 9 Note Status: Finalized [...] informed consent was obtained. The Olympusradial endosonoscope [id number] was introduced throughthe mouth, and advanced to [...] 7 days, please contact my office at [phone]. - Return to referring physician as previously scheduled. Attending Participation: I was present and participated during the entire procedure, including non-beth portions. Electronically signed by Rosario Bravo MD Rosario Bravo M.D. 03/10/2023 8:54:53 AM . Number of Addenda: 0 Note Initiated On: 03/10/2023 7:50 AM Recognized by the [employer] for promoting quality in endoscopy us Rosario Bravo MD ENDOSCOPY PROCEDURES Final Res ult * POCT glucose (03/10/2023 7:25 AM CDT) Glucose, POC 117 70 - 199 mg/dL [facility] Blood 03/10/2023 7:25 AM CDT 03/10/2023 7:25 AM CDT Rosario Bravo MD LAB POCT ORDERABLES - DEVICE F inal Result [facility] [place] [address] documented in this encounter Visit Diagnoses Diagnosis [...] 02/19/2023 cholecalciferol (VITAMIN D-3) 50,000 unit capsule 43979 UNIT ORALLY WEEKLY 12/18/2022 lisinopriL (PRINIVIL,ZESTRI L) [...] 03/10/2023 documented in this encounter Care Teams Nuclear Medicine Specialist Relationship Specialty Start Date End Date Dale Funes MD [address] [employer] [address] [place] [address] PCP - General Family Medicine 03/07/23 Dale Funes MD [address] [place] [address] 06/25/19 documented as of this encounter
--- OUTSIDE RECORDS SUMMARY | 2024-11-03 21:18 | XMS_ITS | Referral Summary ---
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 Gender Identity Not on file Sexual Orientation [...] on file Medical Devices Implanted Type Area Curing Machine Operator Device Identifier Shelf Expiration Date Model / Serial / Lot Conmed Kathleen Conmed 11mm Duraclip [id number] - [id number] Implanted:Qty: 1 on 03/10/2023 by Rosario Bravo MD at [facility] Conmed Kathleen 11/12/2024 [id number] / / [id number] Conmed Kathleen Conmed 11mm Duraclip [id number] - [id number] Implanted:Qty: 1 on 03/10/2023 by Rosario Bravo MD at [facility] Conmed Kathleen 11/12/2024 [id number] / / [id number] Insurance MEDICARE [facility] MEDICARE [facility] MEDICARE [employer] COMPENSATION GENERIC Advance Directives For more information, please contact: [phone] * Full Code (Latest Code Status on File) Date Activated Date Inactivated Comments 03/10/2023 7:16 AM 03/10/2023 1:30 PM Care Teams Manager Progressive Care Relationship Specialty Start Date End Date Dale Funes MD [address] [address] PCP - General Family Medicine 03/07/23 Dale Funes MD [address] [address] 06/25/19
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
== END 2024-10-27 19:20 | disposition home or self-care (01) ==
PROVIDERS: Emergency Provider Emergency Medicine; PCP Family Medicine
DX: J06.9 Acute upper respiratory infection, unspecified (principal); M10.9 Gout, unspecified; I10 Essential (primary) hypertension; E55.9 Vitamin D deficiency, unspecified; E78.2 Mixed hyperlipidemia; E11.9 Type 2 diabetes mellitus without complications; Z87.891 Personal history of nicotine dependence; Z20.822 Contact with and (suspected) exposure to COVID-19
CPT/HCPCS: 71046; 87637; 94640; 96374; 99284; A9270; J1100

== ENCOUNTER 2025-05-18 08:14 | Emergency (ER) | payer MEDICARE, OTHER, SELFPAY ==
--- NOTE | ~2025-05-18 | CT_ITS ---
CT of the Abdomen and Pelvis: Indication: Right flank pain Technique: 2.5 mm axial scans were obtained through the abdomen and pelvis following intravenous adm inistration of 100 cc of Omnipaque 350. Dose reduction technique was used on this scan by utilizing a utomated exposure control and iterative reconstruction technique. The dose-length product (DLP) was 1 661.37 mGy-cm. COMPARISON: 01/23/2023 Findings: Scans through the lung bases are unremarkable. The liver, spleen, pancreas, adrenals and left kidney are within normal limits. Cholecystectomy clips are present. 6 mm nonobstructing right renal stone present. Additional punctate nonobstructing right renal stone present. There are atherosclerotic calcifications of the aorta. No lymphadenopathy. No bowel obstruction or bowel wall thickening. There is no evidence to suggest acute appendicitis. Images through the pelvis were performed. Urinary bladder unremarkable. No pelvic mass seen. No ascit es. Impression: Nonobstructing right nephrolithiasis, as above. Reviewed, dictated and finalized at [facility]. Impression: Nonobstructing right nephrolithiasis, as above.
--- OUTSIDE RECORDS SUMMARY | 2025-05-18 08:16 | XMS_ITS | Clinical Summary ---
Author Organization [facility] Address [address] [address] Phone Care Team Providers Care Gas Engine Operator Compressors Name Role Phone Dael Funes MD Primary Care Provider Allergies No [...] 70 03/03/2017 6:35 AM CDT Temperature 36 C (96.8 F) 03/03/2017 8:18 AM CDT Respiratory Rate 18 03/03/2017 8:18 AM CDT Oxygen Saturation 97% 03/03/2017 8:18 AM CDT Inhaled Oxygen Concentration - - Weight 136.1 kg (300 lb) 02/28/2017 1:00 PM CDT Height 185.4 cm (6' 1) 02/28/2017 1:00 PM CDT Body Mass Index 39.58 02/28/2017 1:00 PM CDT Plan of Treatment Health Maintenance Due Date Last Done Comments Hepatitis C Virus (HCV) Screening 1955 TdaP Immunization 1955 Colonoscopy 1999 Colorectal Cancer Screening 1999 Cologuard 2004 Immunochemical Fecal Occult Blood 2004 Pneumococcal Immunization (5 0+ years) (1 of 1 - PCV) 2004 Zoster Immunization (1 of 2) 2004 PSA Discussion 2009 Influenza Immunization (#1) 2024 SARS-COV-2 Immunization (1 - 2023-25 season) 2024 Respiratory Syncytial Virus (RSV) Immunization (Adult) (1 - 1-dose 75+ series) 2029 Hepatitis B Immunization Aged Out No longer eligible based on patient's age to complete this topic Meningococcal Immunization (ACWY) Aged Out No longer eligible based on patient's age to complete this topic Rotavirus Immunization Aged Out No lo nger eligible based on patient's age to complete this topic Insurance Care Teams Gas Engine Operator Compressors Relationship Specialty Start Date End Date Dale Funes MD [address] [address] PCP - General Family Medicine 11/17/16
--- OUTSIDE RECORDS SUMMARY | 2025-05-18 08:16 | XMS_ITS | Referral Summary ---
Author Organization [facility] Address [address] [facility] [place] [address] Care Team Providers Care Toxics Program Officer Name Role Phone Dale Funes MD Unavailable [phone] Dale Funes MD Primary Care Provider [phone] Allergies No known active allergies Medications allopurinol [...] TWO TIMES A DAY WITH MEALS 3 06/11/[address] (PROTONIX) 40 mg EC tablet Take 1 tablet (40 mg total) by mouth daily 3 06/11/20 19 Active simvastatin (ZOCOR) 20 mg tablet Take 1 tablet (20 mg total) by mouth every evening 3 06/11/20 19 Active calcium carbonate (PYFM-URN-634) 1,250 MG (500 mg of elemental calcium) [...] Active cholecalciferol (VITAMIN D-3) 50,000 unit capsule 59008 UNIT ORALLY WEEKLY 12/18/19 23 Active DULoxetine [...] on file 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 Gender Identity Not on file Sexual Orientation Not on file Last Filed Vital Signs Vital Sign Reading Time Taken Comments Blood Pressure 105/85 03/10/2023 9:05 AM CDT Pulse 72 03/10/2023 9:15 AM CDT Temperature 36.7 C (98.1 F) 03/10/2023 8:45 AM CDT Respiratory Rate 18 03/10/2023 9:15 AM CDT Oxygen Saturation 95% 03/10/2023 9:15 AM CDT Inhaled Oxygen Concentration - - Weight 131.5 kg (290 lb) 03/10/2023 7:29 AM CDT Height 185.4 cm (6' 1) 03/10/2023 7:29 AM CDT Body Mass Index 38.26 03/10/2023 7:29 AM CDT Plan of Treatment Not on file Medical Devices Implanted Type Area Pheresis Nurse Device Identifier Shelf Expiration Date Model / Serial / Lot Conmed Kathleen Conmed 11mm Duraclip [id number] - [id number] Implanted:Qty: 1 on 03/10/2023 by Rosario Bravo MD at [facility] Conmed Kathleen 11/12/2024 [id number] / / [id number] Conmed Kathleen Conmed 11mm Duraclip [id number] - [id number] Implanted:Qty: 1 on 03/10/2023 by Rosario Bravo MD at [facility] [employer] Kathleen 11/12/2024 [id number] / / [id number] Insurance MEDICARE [facility] MEDICARE MEDICARE [employer] [place] COMPENSATION GENERIC Advance Directives For more information, please contact: [phone] * Full Code (Latest Code Status on File) Date Activated Date Inactivated Comments 03/10/2023 7:16 AM 03/10/2023 1:30 PM Care Teams Toxics Program Officer Relationship Specialty Start Date End Date Dale Funes MD [address] [address] PCP - General Family Medicine 03/07/23 Dale Funes MD [address] [address] 06/25/19
--- OUTSIDE RECORDS SUMMARY | 2025-05-18 08:16 | XMS_ITS | Clinical Summary ---
Author Organization [facility] Address [address] [facility] [address] [facility] [place] [address] Care Team Providers Care Ring Making Machine Operator Name Role Phone Dale Funes MD Unavailable [phone] Dale Funes MD Primary Care Provider [phone] Allergies No known active allergies Medications allopurinol [...] evening 3 06/11/20 19 Active calcium carbonate (BSWR-HVE-119) 1,250 MG (500 mg of elemental calcium) [...] Active cholecalciferol (VITAMIN D-3) 50,000 unit capsule 31640 UNIT ORALLY WEEKLY 12/18/19 23 Active DULoxetine [...] Knee Surgery - (Added by TW Conv) [place] RPR UMBILICAL HERNIA < 5 YRS REDUCIBLE Umbilical Hernia Repair - (Added by TW Conv) [place] ARTHRD ANT INTERBODY MIN DSC CRV BELOW [...] on file 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 Gender Identity Not on file Sexual Orientation [...] Last Done Comments Colon Cancer Screening-Colonoscopy 1955 Hepatitis C Screening 1955 DTaP/Tdap/Td Vaccine (1 - Tdap) 1965 Pneumococcal vaccine 65+ (1 of 1 - PCV) 2004 Zoster Vaccine (1 of 2) 2004 Abdominal Aortic Aneurysm (A AA) Screen 2019 Well Visit 65+ 2019 Depression Screening 05/21/2021 05/21/2020, 05/21/2020, 07/31/2019, Additional history exists Fall Risk Assessment 03/10/2024 03/10/2023 Influenza Vaccine (#1) 2025 9, 08/30/2018, 08/11/2016, Additional history exists Hepatitis B Screening Completed 07/04/2018 , 01/22/2018, 12/11/2017 Medical Devices Implanted Type Area Health Information Manager Device Identifier Shelf Expiration Date Model / Serial / Lot Conmed Kathleen Conmed 11mm Duraclip [id number] - [id number] Implanted:Qty: 1 on 03/10/2023 by Rosario Bravo MD at [facility] Conmed Kathleen 11/12/2024 [id number] / / [id number] Conmed Kathleen Conmed 11mm Duraclip [id number] - [id number] Implanted:Qty: 1 on 03/10/2023 by Rosario Bravo MD at [facility] Conmed Kathleen 11/12/2024 [id number] / / [id number] Insurance MEDICARE [facility] Address: [address] [address] [facility] MEDICARE [facility] MEDICARE [employer] COMPENSATION GENERIC Advance Directives For more information, please contact: [phone] * Full Code (Latest Code Status on File) Date Activated Date Inactivated Comments 03/10/2023 7:16 AM 03/10/2023 1:30 PM Care Teams Ring Making Machine Operator Relationship Specialty Start Date End Date Dale Funes MD [address] [place] [address] PCP - General Family Medicine 03/07/23 Dale Funes MD [address] [place] [address] 06/25/19
--- OUTSIDE RECORDS SUMMARY | 2025-05-18 08:16 | XMS_ITS | Clinical Summary ---
Author Organization [facility] Address [address] [place] [address] Care Team Providers Care Merchandise Complaint Adjuster Name Role Phone Dale Funes MD Primary Care Provider [phone] Source Comments [facility],non-owned Affiliates and Associated Physician Practices is amultiple site organization consisting of ambulatory clinics and hospital sitesin [place], [place], [place] and [place]. This disclosure is being madepursuant to the Care Everywhere program and may not contain all information available regarding this patient. Last updated 18.[facility] Social History Tobacco Use Types Packs/Day Years Used Date Smoking Tobacco: Never Assessed Sex and Gender Information Value Date Recorded Sex Assigned at Not on file Legal Sex Male 11:00 PM DISTRIBUTION DISTRICT SUPERVISOR Gender Identity Not on file Sexual Orientation Not on file Last Filed Vital Signs Vital Sign Reading Time Taken Comments Blood Pressure 113/72 12/26/2017 12:23 PM DISTRIBUTION DISTRICT SUPERVISOR Pulse 75 12/26/2017 12:23 PM DISTRIBUTION DISTRICT SUPERVISOR Temperature 36.3 C (97.4 F) 12/26/2017 8:19 AM DISTRIBUTION DISTRICT SUPERVISOR Respiratory Rate 13 12/26/2017 12:23 PM DISTRIBUTION DISTRICT SUPERVISOR Oxygen Saturation 94% 12/26/2017 12:23 PM DISTRIBUTION DISTRICT SUPERVISOR Inhaled Oxygen Concentration - - Weight 127.9 kg (282 lb) 12/26/2017 8:15 AM DISTRIBUTION DISTRICT SUPERVISOR Height 185.4 cm (6' 1) 12/26/2017 8:15 AM DISTRIBUTION DISTRICT SUPERVISOR Body Mass Index 37.21 12/26/2017 8:15 AM DISTRIBUTION DISTRICT SUPERVISOR Plan of Treatment Health Maintenance Due Date Last Done Comments COLOGUARD (AGES 45-75) - COL ON CA SCREENING 1955 COLON MONITORING 1955 COLONOSCOPY - COLON CA SCREENING 1954 CT COLONOGRAPHY - COLON CA SCREENING 1955 Colorectal Cancer Screening 1955 FIT - COLON CA SCREENING 1955 FLEX SIG - COLON CA SCREENING 1955 LIPID TESTING 1955 DTAP/TDAP/TD VACCINES (1 - Tdap) 1973 PNEUMOCOCCAL VACCINE 50+ (1 of 1 - PCV) 2004 ZOSTER VACCINE (1 of 2) 2004 COVID-19 VACCINE (1 - 2023-2 5 season) 2024 DEPRESSION SCREENING 10/30/2024 INFLUENZA VACCINE (#1) 2025 Respiratory Syncytial Virus (RSV) Vaccine Pt: or [...] patient's age to complete this topic MENINGOCOCCAL (Group B) VACC INE SHARED DECISION-MAKING Aged Out No longer eligibl e based on patient's age to complete this topic MENINGOCOCCAL GROUPS A/C/Y/W VACCINE Aged Out No longer eligible b ased on patient's age to complete this topic Procedures Procedure Name Priority Date/Time Associated Diagnosis Comments HEPATITIS C AB W/RFLX TO HCV RNA QN PCR Routine 11/13/2017 1:39 PM DISTRIBUTION DISTRICT SUPERVISOR from Last 3 Months or Most Recently Relevant to Health Maintenance Results * HEPATITIS C AB W/RFLX TO HCV RNA QN PCR (11/13/2017 1:39 PM DISTRIBUTION DISTRICT SUPERVISOR) Hepatitis C Antibody 0.2 0.0 - 0.9 s/co ratio [facility]) 11/13/2017 1:39 PM DISTRIBUTION DISTRICT SUPERVISOR 11/13/2017 Narrative [facility] ([facility]) - 11/14/2017 7:11 AM DISTRIBUTION DISTRICT SUPERVISOR Performed at: 01 - [facility] [address] [place], [place] [id number] Cq Developer: Wayne Kelly PhD, Phone: [phone] Christos Blum MD LAB - CHEMISTR Y ORDERABLES Final Result [facility] ([facility]) [address] [place] [address], [facility] from Last 3 Months or Most Recently Relevant to Health Maintenance Insurance MEDICARE Care Teams Merchandise Complaint Adjuster Relationship Specialty Start Date End Date Dale Funes MD PCP - General 03/14/18
[2025-05-18 08:19] VITALS: BP 161/89; PULSE 94; RESP 20; TEMP 36.4; O2SAT 96
[2025-05-18 08:40] LABS: Hematocrit 45.8 % (42.0-52.0); Hemoglobin 14.5 g/dL (14.0-18.0); Immature Granulocyte Percent A 5.6 % (0-0.5); Lymphocytes Absolute Auto 1.89 K/mm3 (0.9-3.2); Mean Corpuscular HGB Conc 31.7 g/dl (32-36); Mean Corpuscular Hemoglobin 29.0 pg (26-34); Mean Corpuscular Volume 91.6 fl (80-100); Nucleated Red Blood Cells Absolute Auto 0.000 K/mm3 (0.0-0.012); Nucleated Red Blood Cells Perc 0.0 % (0.0-0.2); Platelet Count Result 258 k/mm3 (150-375); Red Blood Count 5.00 M/mm3 (4.6-6.20); White Blood Count 13.6 K/mm3 (4.5-10.0)
--- OUTSIDE RECORDS SUMMARY | 2025-05-18 08:54 | XMS_ITS | Referral Summary ---
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 Gender Identity Not on file Sexual Orientation [...] on file Medical Devices Implanted Type Area Music Adapter Device Identifier Shelf Expiration Date Model / Serial / Lot Conmed Kathleen Conmed 11mm Duraclip [id number] - [id number] Implanted:Qty: 1 on 03/10/2023 by Rosario Bravo MD at [facility] [employer]med Kathleen 11/12/2024 [id number] / / [id number] Conmed Kathleen Conmed 11mm Duraclip [id number] - [id number] Implanted:Qty: 1 on 03/10/2023 by Rosario Bravo MD at [facility] [employer]med Kathleen 11/12/2024 [id number] / / [id number] Insurance MEDICARE [facility] MEDICARE MEDICARE [employer] COMPENSATION GENERIC Advance Directives For more information, please contact: [phone] * Full Code (Latest Code Status on File) Date Activated Date Inactivated Comments 03/10/2023 7:16 AM 03/10/2023 1:30 PM Care Teams Dust Mill Operator Relationship Specialty Start Date End Date Dale Funes MD [address] [address] PCP - General Family Medicine 03/07/23 Dale Funes MD [address] [address] 06/25/19
--- OUTSIDE RECORDS SUMMARY | 2025-05-18 08:54 | XMS_ITS | Clinical Summary ---
Author Organization [facility] Address [address] [place] [address] Care Team Providers Care Architecture Department Chair Name Role Phone Dale Funes MD Primary Care Provider [phone] Source Comments [facility],non-owned Affiliates and Associated Physician Practices is amultiple site organization consisting of ambulatory clinics and hospital sitesin [place], [place], [place] and [place]. This disclosure is being madepursuant to the Care Everywhere program and may not contain all information available regarding this patient. Last updated 18.[facility] Social History Tobacco Use Types Packs/Day Years Used Date Smoking Tobacco: Never Assessed Sex and Gender Information Value Date Recorded Sex Assigned at Not on file Legal Sex Male 11:00 PM CONTROL ROOM HELPER Gender Identity Not on file Sexual Orientation Not on file Last Filed Vital Signs Vital Sign Reading Time Taken Comments Blood Pressure 113/72 12/26/2017 12:23 PM CONTROL ROOM HELPER Pulse 75 12/26/2017 12:23 PM CONTROL ROOM HELPER Temperature 36.3 C (97.4 F) 12/26/2017 8:19 AM CONTROL ROOM HELPER Respiratory Rate 13 12/26/2017 12:23 PM CONTROL ROOM HELPER Oxygen Saturation 94% 12/26/2017 12:23 PM CONTROL ROOM HELPER Inhaled Oxygen Concentration - - Weight 127.9 kg (282 lb) 12/26/2017 8:15 AM CONTROL ROOM HELPER Height 185.4 cm (6' 1) 12/26/2017 8:15 AM CONTROL ROOM HELPER Body Mass Index 37.21 12/26/2017 8:15 AM CONTROL ROOM HELPER Plan of Treatment Health Maintenance Due Date [...] RNA QN PCR Routine 11/13/2017 1:39 PM CONTROL ROOM HELPER from Last 3 Months or Most Recently Relevant to Health Maintenance Results * HEPATITIS C AB W/RFLX TO HCV RNA QN PCR (11/13/2017 1:39 PM CONTROL ROOM HELPER) Hepatitis C Antibody 0.2 0.0 - 0.9 s/co ratio [facility] 11/13/2017 1:39 PM CONTROL ROOM HELPER 11/13/2017 Narrative [facility]) - 11/14/2017 7:11 AM CONTROL ROOM HELPER Performed at: 01 - [facility] [address] [place], [place] [id number] Wireless Operator: Wayne Kelly PhD, Phone: [phone] Christos Blum MD LAB - CHEMISTR Y ORDERABLES Final Result [facility]) [address] [place] [address], [facility] from Last 3 Months or Most Recently Relevant to Health Maintenance Insurance MEDICARE Care Teams Architecture Department Chair Relationship Specialty Start Date End Date Dale Funes MD PCP - General 03/14/18
--- OUTSIDE RECORDS SUMMARY | 2025-05-18 08:54 | XMS_ITS | Clinical Summary ---
Author Organization [facility] Address [address] [place] [address] Care Team Providers Care Show Girl Name Role Phone Dale Funes MD Unavailable Dale Funes MD Primary Care Provider [phone] Allergies No known active allergies Medications allopurinol [...] evening 3 06/11/20 19 Active calcium carbonate (SUAK-QAB-103) 1,250 MG (500 mg of elemental calcium) [...] Active cholecalciferol (VITAMIN D-3) 50,000 unit capsule 33260 UNIT ORALLY WEEKLY 12/18/19 23 Active DULoxetine [...] Knee Surgery - (Added by TW Conv) VT RPR UMBILICAL HERNIA < 5 YRS REDUCIBLE Umbilical Hernia Repair - (Added by TW Conv) VT ARTHRD ANT INTERBODY MIN DSC CRV BELOW [...] on file 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 Gender Identity Not on file Sexual Orientation [...] 01/22/2018, 12/11/2017 Medical Devices Implanted Type Area Entrepreneurship Program Director Device Identifier Shelf Expiration Date Model / Serial / Lot Conmed Kathleen Conmed 11mm Duraclip [id number] - [id number] Implanted:Qty: 1 on 03/10/2023 by Rosario Bravo MD at [facility] Conmed Kathleen 11/12/2024 [id number] / / [id number] Conmed Kathleen Conmed 11mm Duraclip [id number] - [id number] Implanted:Qty: 1 on 03/10/2023 by Rosario Bravo MD at [facility] Conmed Kathleen 11/12/2024 [id number] / / [id number] Insurance MEDICARE [facility] MEDICARE [facility] MEDICARE [employer] COMPENSATION GENERIC Advance Directives For more information, please contact: [phone] * Full Code (Latest Code Status on File) Date Activated Date Inactivated Comments 03/10/2023 7:16 AM 03/10/2023 1:30 PM Care Teams Show Girl Relationship Specialty Start Date End Date Dale Funes MD [address] [place] [id number] PCP - General Family Medicine 03/07/23 Dale Funes MD [address] [place] [address] 06/25/19
--- OUTSIDE RECORDS SUMMARY | 2025-05-18 08:54 | XMS_ITS | Clinical Summary ---
Author Organization [facility] Address [address] [address] Phone Care Team Providers Care Air Quality Technician Name Role Phone Dale Funes MD Primary [...] to complete this topic Insurance Care Teams Air Quality Technician Relationship Specialty Start Date End Date Dale Funes MD [address] [address] PCP - General Family Medicine 11/17/16
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
[2025-05-18 09:19] LABS: Anisocytosis 1+; Schistocytes None Seen
[2025-05-18 09:21] LABS: Alanine Aminotransferase 26 U/L (6-50); Albumin Level 4.4 g/dL (3.5-5.1); Alkaline Phosphatase 78 U/L (38-126); Anion Gap 9 mmol/L (4-12); Aspartate Amino Transferase 35 U/L (17-59); Bilirubin,Total 0.6 mg/dL (0.2-1.3); Blood Urea Nitrogen 20 mg/dL (9-20); Calcium 9.7 mg/dL (8.4-10.2); Carbon Dioxide 26 mmol/L (22-30); Chloride 106 mmol/L (98-107); Estimated CRCL calculation 127 ml/min; Estimated Glomerular Filt Rate > 60; Glucose 126 mg/dL (65-110); Potassium 4.1 mmol/L (3.4-5.0); Sodium 141 mmol/L (137-145); Total Protein 7.4 g/dL (6.3-8.2)
[2025-05-18 09:23] LABS: Add Urine Microscopic? YES; Appearance Urine Clear (Clear); Glucose Urine UA Negative (Negative); Leukocyte Esterase Ur 1+ LEU/UL (Negative); Need Manual Microscopic Reviewed; Nitrate Urine Negative (Negative); Non Pathogenic Casts 0-2; Specific Grav Ur 1.020 (1.001-1.035)
[2025-05-18] MEDS: HYDROmorphone HCL INJ (*CRX) 2 MG/ML VIAL 1 MG IV PUSH (09:27)
[2025-05-18 09:36] VITALS: BP 146/83; PULSE 69; RESP 16; O2SAT 95
[2025-05-18] MEDS: TAMSULOSIN HCL 0.4 MG CAPSULE PO (10:55)
[2025-05-18] MEDS: KETOROLAC 30 MG/ML VIAL (*BKC) IV PUSH (10:55)
[2025-05-18 11:48] VITALS: BP 144/85; PULSE 64; RESP 18; O2SAT 98
== END 2025-05-18 11:52 | disposition home or self-care (01) ==
PROVIDERS: Emergency Provider Student in an Organized Health Care Education/Training Program; PCP Family Medicine
DX: N20.0 Calculus of kidney (principal); D72.829 Elevated white blood cell count, unspecified; E66.01 Morbid (severe) obesity due to excess calories; Z68.45 Body mass index [BMI] 70 or greater, adult; E11.9 Type 2 diabetes mellitus without complications; E78.2 Mixed hyperlipidemia; E89.0 Postprocedural hypothyroidism; E55.9 Vitamin D deficiency, unspecified; D51.9 Vitamin B12 deficiency anemia, unspecified; G89.21 Chronic pain due to trauma; M54.9 Dorsalgia, unspecified; M54.2 Cervicalgia; G25.81 Restless legs syndrome; K58.0 Irritable bowel syndrome with diarrhea; Z86.16 Personal history of COVID-19; Z87.442 Personal history of urinary calculi; Z87.891 Personal history of nicotine dependence; Z90.49 Acquired absence of other specified parts of digestive tract; Z79.899 Other long term (current) drug therapy; Z79.84 Long term (current) use of oral hypoglycemic drugs
CPT/HCPCS: 36415; 74177; 80053; 81001; 85025; 87086; 96374; 96375; 99284; A9270; J1171; J1885; Q9967

== ENCOUNTER 2025-05-21 15:57 | Outpatient (CLI) | payer MEDICARE, OTHER, SELFPAY ==
--- NOTE | ~2025-05-21 | XR_ITS ---
XR abdomen/kub 1V 05/21/2025 16:12 Indication: Kidney stone Procedure: KUB Comparison: No prior studies for comparison. Findings: There are right renal stones. There are surgical changes consistent with partial fusion at L4-S1. There are prosthetic disc devices at L4-5 and L5-S1. Nonobstructive bowel gas pattern. There a re cholecystectomy clips. Mild osteoarthritis of the hips. Moderate lumbar spondylosis. Impression: 1: Right nephrolithiasis. Reviewed, dictated and finalized at location A. Impression: 1: Right nephrolithiasis.
--- OUTSIDE RECORDS SUMMARY | 2025-05-21 16:00 | XMS_ITS | Clinical Summary ---
Author Organization [facility] Address [address] 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 Conmed Kathleen 11/12/2024 [id number] / / [id number] Conmed Kathleen Conmed 11mm Duraclip [id number] - [id number] Implanted:Qty: 1 on 03/10/2023 by Rosario Bravo MD at [facility] Conmed Kathleen 11/12/2024 [id number] / / [id number] Insurance MEDICARE [facility] MEDICARE [facility] MEDICARE [employer] COMPENSATION GENERIC Advance Directives For more information, please contact: [phone] * Full Code (Latest Code Status on File) Date Activated Date Inactivated Comments 03/10/2023 7:16 AM 03/10/2023 1:30 PM Care Teams Truck Spotter Relationship Specialty Start Date End Date Dale Funes MD [address] [place] [id number] PCP - General Family Medicine 03/07/23 Dale Funes MD [address] [place] [id number] 06/25/19
--- OUTSIDE RECORDS SUMMARY | 2025-05-21 16:00 | XMS_ITS | Referral Summary ---
Author Organization [facility] Building A Address [address] [facility] [place] [address] Care Team Providers Care Customer Service Associate Name Role Phone Dale Funes MD Unavailable [phone] Dale Funes MD Primary Care Provider [phone] Allergies No known active allergies Medications allopurinol [...] evening 3 06/11/20 19 Active calcium carbonate ([id number]) 1,250 MG (500 mg of elemental calcium) [...] Active cholecalciferol (VITAMIN D-3) 50,000 unit capsule 82630 UNIT ORALLY WEEKLY 12/18/19 23 Active DULoxetine [...] on file Legal Sex 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 Gender Identity Not on file Sexual [...] on file Medical Devices Implanted Type Area Medical Record Clerk Device Identifier Shelf Expiration Date Model / Serial / Lot Conmed Kathleen Conmed 11mm Duraclip [id number] - [id number] Implanted:Qty: 1 on 03/10/2023 by Rosario Bravo MD at [facility] Conmed Kathleen 11/12/2024 [id number] / / [id number] Conmed Kathleen Conmed 11mm Duraclip [id number] - [id number] Implanted:Qty: 1 on 03/10/2023 by Rosario Bravo MD at [facility] Conmed Kathleen 11/12/2024 [id number] / / [id number] Insurance MEDICARE [facility] MEDICARE MEDICARE [facility] [employer] COMPENSATION GENERIC Advance Directives For more information, please contact: [phone] * Full Code (Latest Code Status on File) Date Activated Date Inactivated Comments 03/10/2023 7:16 AM 03/10/2023 1:30 PM Care Teams Customer Service Associate Relationship Specialty Start Date End Date Dale Funes MD [address] [address] PCP - General Family Medicine 03/07/23 Dale Funes MD [address] [address] 06/25/19
--- OUTSIDE RECORDS SUMMARY | 2025-05-21 16:00 | XMS_ITS | Clinical Summary ---
Author Organization [facility] Address [address] [address] Phone Care Team Providers Care Surgical Instruments Inspector Name Role Phone Dale Funes MD Primary [...] Virus (HCV) Screening 1955 TdaP Immunization 1955 Cologuard 1999 Colonoscopy 1999 Colorectal Cancer Screening 1999 Immunochemical Fecal Occult Blood 1999 Pneumococcal Immunization (5 0+ years) (1 of 1 - PCV) 2004 Zoster Immunization (1 of 2) 2004 SARS-COV-2 Immunization (1 - 2023-25 season) 2024 Influenza Immunization (#1) 2025 Respiratory Syncytial Virus (RSV) Immunization (Adult) (1 - 1-dose 75+ series) 2029 Hepatitis B Immunization Aged Out No longer eligible based on patient's age to complete this topic Human Papillomavirus (HPV) Immunization Aged Out No longer eligible b ased on patient's age to complete this topic Meningococcal Immunization (ACWY) Aged Out No longer eligible based on patient's age to complete this topic Rotavirus Immunization Aged Out No lo nger eligible based on patient's age to complete this topic Insurance Care Teams Surgical Instruments Inspector Relationship Specialty Start Date End Date Dale Funes MD [address] [address] PCP - General Family Medicine 11/17/16
--- OUTSIDE RECORDS SUMMARY | 2025-05-21 16:00 | XMS_ITS | Clinical Summary ---
Author Organization [facility] Address [address] [facility] [place] [address] Care Team Providers Care Family Service Assistant Name Role Phone Dale Funes MD Primary Care Provider Source Comments [facility],non-owned Affiliates and Associated Physician Practices is amultiple site organization consisting of ambulatory clinics and hospital sitesin [place], [place], [place] and [place]. This disclosure is being madepursuant to the Care Everywhere program and may not contain all information available regarding this patient. Last updated 18.[facility] Social History Tobacco Use Types Packs/Day Years Used Date Smoking Tobacco: Never Assessed Sex and Gender Information Value Date Recorded Sex Assigned at Not on file Legal Sex Male 11:00 PM MANAGER REIMBURSEMENT Gender Identity Not on file Sexual Orientation Not on file Last Filed Vital Signs Vital Sign Reading Time Taken Comments Blood Pressure 113/72 12/26/2017 12:23 PM MANAGER REIMBURSEMENT Pulse 75 12/26/2017 12:23 PM MANAGER REIMBURSEMENT Temperature 36.3 C (97.4 F) 12/26/2017 8:19 AM MANAGER REIMBURSEMENT Respiratory Rate 13 12/26/2017 12:23 PM MANAGER REIMBURSEMENT Oxygen Saturation 94% 12/26/2017 12:23 PM MANAGER REIMBURSEMENT Inhaled Oxygen Concentration - - Weight 127.9 kg (282 lb) 12/26/2017 8:15 AM MANAGER REIMBURSEMENT Height 185.4 cm (6' 1) 12/26/2017 8:15 AM MANAGER REIMBURSEMENT Body Mass Index 37.21 12/26/2017 8:15 AM MANAGER REIMBURSEMENT Plan of Treatment Health Maintenance Due Date [...] QN PCR Routine 11/13/2017 1:39 PM MANAGER REIMBURSEMENT from Last 3 Months or Most Recently Relevant to Health Maintenance Results * HEPATITIS C AB W/RFLX TO HCV RNA QN PCR (11/13/2017 1:39 PM MANAGER REIMBURSEMENT) Hepatitis C Antibody 0.2 0.0 - 0.9 s/co ratio [facility]) 11/13/2017 1:39 PM MANAGER REIMBURSEMENT 11/13/2017 Narrative [facility] ([facility]) - 11/14/2017 7:11 AM MANAGER REIMBURSEMENT Performed at: 01 - [facility] [place] [address] [place], [place] [id number] Warehouse Record Clerk: Wayne Kelly PhD, Phone: [phone] Christos Blum MD LAB - CHEMISTR Y ORDERABLES Final Result [facility] ([facility]) [address] [place] [address], [facility] from Last 3 Months or Most Recently Relevant to Health Maintenance Insurance MEDICARE Care Teams Family Service Assistant Relationship Specialty Start Date End Date Dale Funes MD PCP - General 03/14/18
== END 2025-05-21 15:58 | disposition home or self-care (01) ==
PROVIDERS: PCP Family Medicine; Visit Provider Nurse Practitioner Family
DX: N20.0 Calculus of kidney (principal)
CPT/HCPCS: 74018

== ENCOUNTER 2025-06-18 00:35 | Day surgery (SDC) | payer MEDICARE, OTHER, SELFPAY ==
[2025-06-05 14:06] VITALS: BMI 38.4
[2025-06-18 07:08] VITALS: BP 134/80; PULSE 73; RESP 18; TEMP 36.1; O2SAT 98; BMI 38.0
[2025-06-18] MEDS: LACTATED RINGERS 1,000 ML 150 ML IV CONT (07:45)
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
--- NOTE | 2025-06-18 09:08 | S_PTH ---
PATIENT: Teo Martinez LOC: [facility] U#:[id number] AGE/SX: 70/M ROOM: RE06/18/[address]: Wayne Greene MD : 1955 BED: DIS: 06/18/2025 SPEC #: [id number] RECD: 06/18/25 10:18 STATUS: JAKE REQ #: [id number] CHIDI: 06/18/25 09:[address]: Wayne Greene DEPT: [facility] Surgical RECD BY: Erika Fishman ENTERED: 06/18/25 10:19 SP TYPE: Surgical OTHR DR: Dale Funes MD Tissues: A - Colon Polypectomy B - Colon Polypectomy Procedures: Hematoxylin and Eosin Stain Gross and Microscopic Level 4
[2025-06-18 09:12] VITALS: BP 84/52; PULSE 63; RESP 14; O2SAT 91
[2025-06-18 09:22] VITALS: BP 90/60; PULSE 65; RESP 14; O2SAT 94
[2025-06-18 09:32] VITALS: BP 103/59; PULSE 65; RESP 14; O2SAT 95
== END 2025-06-18 09:45 | disposition home or self-care (01) ==
PROVIDERS: PCP Family Medicine; Referring Provider Internal Medicine Gastroenterology; Visit Provider Internal Medicine Gastroenterology
PROC: 0DJD8ZZ Inspection of Lower Intestinal Tract, Via Natural or Artificial Opening Endoscopic (ICD-10-PCS; CPT 45378; principal; 2025-06-18 08:30)
DX: Z12.11 Encounter for screening for malignant neoplasm of colon (principal); D12.3 Benign neoplasm of transverse colon; D12.2 Benign neoplasm of ascending colon; K64.8 Other hemorrhoids; K57.30 Diverticulosis of large intestine without perforation or abscess without bleeding; K58.0 Irritable bowel syndrome with diarrhea; G25.81 Restless legs syndrome; E55.9 Vitamin D deficiency, unspecified; E53.8 Deficiency of other specified B group vitamins; I10 Essential (primary) hypertension; K21.9 Gastro-esophageal reflux disease without esophagitis; E03.9 Hypothyroidism, unspecified; E11.9 Type 2 diabetes mellitus without complications; R00.2 Palpitations; G89.29 Other chronic pain; M54.2 Cervicalgia; M54.50 Low back pain, unspecified; E66.9 Obesity, unspecified; Z68.38 Body mass index [BMI] 38.0-38.9, adult; Z79.82 Long term (current) use of aspirin; Z79.84 Long term (current) use of oral hypoglycemic drugs; Z98.890 Other specified postprocedural states; Z90.49 Acquired absence of other specified parts of digestive tract; Z98.1 Arthrodesis status; Z87.891 Personal history of nicotine dependence; Z87.442 Personal history of urinary calculi; Z82.49 Family history of ischemic heart disease and other diseases of the circulatory system
CPT/HCPCS: 45385; 82948; 88305; J2003; J2704; J7120

== ENCOUNTER 2025-06-18 11:02 | Outpatient (CLI) | payer MEDICARE, OTHER, SELFPAY ==
--- NOTE | ~2025-06-18 | XR_ITS ---
XR abdomen/kub 1V 06/18/2025 11:29 Indication: Kidney stones Procedure: KUB Comparison: 05/28/2025 Findings: There are right renal stones. Possible left renal stones. Bowel gas pattern nonobstructive. There are surgical changes at L4-S1. Mild osteoarthritis of the hips. Impression: 1: Small bilateral renal stones. Consider correlation with CT. Reviewed, dictated and finalized at location A. Impression: 1: Small bilateral renal stones. Consider correlation with CT.
--- OUTSIDE RECORDS SUMMARY | 2025-06-18 11:41 | XMS_ITS | Clinical Summary ---
Author Organization [facility] Address [address] [place] [address] Care Team Providers Care Deckhand Oyster Dredge Name Role Phone Dale Funes MD Unavailable [phone] Dale Funes MD Primary Care Provider [phone] Allergies No known active allergies Medications allopurinol [...] evening 3 06/11/20 19 Active calcium carbonate (BMOI-SNH-816) 1,250 MG (500 mg of elemental calcium) [...] Active cholecalciferol (VITAMIN D-3) 50,000 unit capsule 69918 UNIT ORALLY WEEKLY 12/18/19 23 Active DULoxetine [...] Knee Surgery - (Added by TW Conv) [place] RPR UMBILICAL HERNIA < 5 YRS REDUCIBLE Umbilical Hernia Repair - (Added by TW Conv) [place] ARTHRD [...] (gastroesophageal reflux disease) Type 2 diabetes mellitus Hypothyroidism Family History Medical History Relation Name [...] file Legal 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 Gender Identity Not on file Sexual Orientation [...] 01/22/2018, 12/11/2017 Medical Devices Implanted Type Area Qual Research Manager Device Identifier Shelf Expiration Date Model / Serial / Lot Conmed Kathleen Conmed 11mm Duraclip [id number] - [id number] Implanted:Qty: 1 on 03/10/2023 by Rosario Bravo MD at [facility] Conmed Kathleen 11/12/2024 [id number] / / [id number] Conmed Kathleen Conmed 11mm Duraclip [id number] - [id number] Implanted:Qty: 1 on 03/10/2023 by Rosario Bravo MD at [facility] Conmed Kathleen 11/12/2024 [id number] / / [id number] Insurance MEDICARE [facility] MEDICARE [facility] MEDICARE [employer] COMPENSATION GENERIC Advance Directives For more information, please contact: [phone] * Full Code (Latest Code Status on File) Date Activated Date Inactivated Comments 03/10/2023 7:16 AM 03/10/2023 1:30 PM Care Teams Deckhand Oyster Dredge Relationship Specialty Start Date End Date Dale Funes MD [address] [address] PCP - General Family Medicine 03/07/23 Dale Funes MD [address] [address] 06/25/19
--- OUTSIDE RECORDS SUMMARY | 2025-06-18 11:41 | XMS_ITS | Clinical Summary ---
Author Organization [facility] Address [address] [address] Phone Care Team Providers Care Flying Shear Operator Name Role Phone Dale Funes MD [...] to complete this topic Insurance Care Teams Flying Shear Operator Relationship Specialty Start Date End Date Dale Funes MD [address] [address] PCP - General Family Medicine 11/17/16
--- OUTSIDE RECORDS SUMMARY | 2025-06-18 11:41 | XMS_ITS | Clinical Summary ---
Author Organization [facility] Address [address] [place] [address] Care Team Providers Care Engineering Teacher Name Role Phone Dale Funes MD Primary Care Provider [phone] Source Comments [facility],non-owned Affiliates and Associated Physician Practices is amultiple site organization consisting of ambulatory clinics and hospital sitesin [place], [place], [place] and [place]. This disclosure is being madepursuant to the Care Everywhere program and may not contain all information available regarding this patient. Last updated 18.[facility] Social History Tobacco Use Types Packs/Day Years Used Date Smoking Tobacco: Never Assessed Sex and Gender Information Value Date Recorded Sex Assigned at Not on file Legal Sex Male 11:00 PM ANIMAL CARE PROVIDER Gender Identity Not on file Sexual Orientation Not on file Last Filed Vital Signs Vital Sign Reading Time Taken Comments Blood Pressure 113/72 12/26/2017 12:23 PM ANIMAL CARE PROVIDER Pulse 75 12/26/2017 12:23 PM ANIMAL CARE PROVIDER Temperature 36.3 C (97.4 F) 12/26/2017 8:19 AM ANIMAL CARE PROVIDER Respiratory Rate 13 12/26/2017 12:23 PM ANIMAL CARE PROVIDER Oxygen Saturation 94% 12/26/2017 12:23 PM ANIMAL CARE PROVIDER Inhaled Oxygen Concentration - - Weight 127.9 kg (282 lb) 12/26/2017 8:15 AM ANIMAL CARE PROVIDER Height 185.4 cm (6' 1) 12/26/2017 8:15 AM ANIMAL CARE PROVIDER Body Mass Index 37.21 12/26/2017 8:15 AM ANIMAL CARE PROVIDER Plan of Treatment Health Maintenance Due Date [...] RNA QN PCR Routine 11/13/2017 1:39 PM ANIMAL CARE PROVIDER from Last 3 Months or Most Recently Relevant to Health Maintenance Results * HEPATITIS C AB W/RFLX TO HCV RNA QN PCR (11/13/2017 1:39 PM ANIMAL CARE PROVIDER) Hepatitis C Antibody 0.2 0.0 - 0.9 s/co ratio [facility] ([facility]) 11/13/2017 1:39 PM ANIMAL CARE PROVIDER 11/13/2017 Narrative [facility] ([facility]) - 11/14/2017 7:11 AM ANIMAL CARE PROVIDER Performed at: 01 - [facility] [address] [place], [place] [id number] Straight Knife Cutter Machine: Wayne Kelly PhD, Phone: [phone] Christos Blum MD LAB - CHEMISTR Y ORDERABLES Final Result [facility] ([facility]) [address] [place] [address], [facility] from Last 3 Months or Most Recently Relevant to Health Maintenance Insurance MEDICARE Care Teams Engineering Teacher Relationship Specialty Start Date End Date Dale Funes MD PCP - General 03/14/18
== END 2025-06-18 11:03 | disposition home or self-care (01) ==
PROVIDERS: PCP Family Medicine; Visit Provider Urology
DX: N20.0 Calculus of kidney (principal)
CPT/HCPCS: 74018

== ENCOUNTER 2025-07-18 10:59 | Outpatient (CLI) | payer MEDICARE, OTHER, SELFPAY ==
--- OUTSIDE RECORDS SUMMARY | 2025-07-18 11:07 | XMS_ITS | Clinical Summary ---
Author Organization [facility] A Address [address] [place] [address] Care Team Providers Care Honeycomb Blanket Maker Name Role Phone Dale Funes MD Unavailable [phone] Dale Funes MD Primary Care Provider [phone] Allergies No known active allergies Medications allopurinol [...] evening 3 06/11/20 19 Active calcium carbonate (AIJF-WPF-175) 1,250 MG (500 mg of elemental calcium) [...] Active cholecalciferol (VITAMIN D-3) 50,000 unit capsule 98354 UNIT ORALLY WEEKLY 12/18/19 23 Active DULoxetine [...] Knee Surgery - (Added by TW Conv) [place] RPR UMBILICAL HERNIA < 5 YRS REDUCIBLE Umbilical Hernia Repair - (Added by TW Conv) [place] ARTHRD ANT INTERBODY MIN DSC CRV BELOW [...] on file 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 Gender Identity Not on file Sexual Orientation [...] 01/22/2018, 12/11/2017 Medical Devices Implanted Type Area Cast Associate Device Identifier Shelf Expiration Date Model / Serial / Lot Conmed Kathleen Conmed 11mm Duraclip [id number] - [id number] Implanted:Qty: 1 on 03/10/2023 by Rosaroi Bravo MD at [facility] Conmed Kathleen 11/12/2024 [id number] / / [id number] Conmed Kathleen Conmed 11mm Duraclip [id number] - [id number] Implanted:Qty: 1 on 03/10/2023 by Rosario Bravo MD at [facility] Conmed Kathleen 11/12/2024 [id number] / / [id number] Insurance MEDICARE [facility] MEDICARE [facility] MEDICARE [employer] COMPENSATION GENERIC Advance Directives For more information, please contact: [phone] * Full Code (Latest Code Status on File) Date Activated Date Inactivated Comments 03/10/2023 7:16 AM 03/10/2023 1:30 PM Care Teams Honeycomb Blanket Maker Relationship Specialty Start Date End Date Dale Funes MD [address] [address] PCP - General Family Medicine 03/07/23 Dale Funes MD [address] [address] 06/25/19
--- OUTSIDE RECORDS SUMMARY | 2025-07-18 11:07 | XMS_ITS | Clinical Summary ---
Author Organization [facility] Address [address] [address] Phone Care Team Providers Care Advice Nurse Name Role Phone Dale Funes MD [...] to complete this topic Insurance Care Teams Advice Nurse Relationship Specialty Start Date End Date Dale Funes MD [address] [address] PCP - General Family Medicine 11/17/16
--- OUTSIDE RECORDS SUMMARY | 2025-07-18 11:07 | XMS_ITS | Clinical Summary ---
Author Organization [facility] Address [address] [place] [address] Care Team Providers Care Manufacturing Production Technician Name Role Phone Dale Funes MD Primary Care Provider [phone] Source Comments [facility],non-owned Affiliates and Associated Physician Practices is amultiple site organization consisting of ambulatory clinics and hospital sitesin [place], [place], [place] and [place]. This disclosure is being madepursuant to the Care Everywhere program and may not contain all information available regarding this patient. Last updated 18.[facility] Social History Tobacco Use Types Packs/Day Years Used Date Smoking Tobacco: Never Assessed Sex and Gender Information Value Date Recorded Sex Assigned at Not on file Legal Sex Male 11:00 PM ADVANCED MANAGER Gender Identity Not on file Sexual Orientation Not on file Last Filed Vital Signs Vital Sign Reading Time Taken Comments Blood Pressure 113/72 12/26/2017 12:23 PM ADVANCED MANAGER Pulse 75 12/26/2017 12:23 PM ADVANCED MANAGER Temperature 36.3 C (97.4 F) 12/26/2017 8:19 AM ADVANCED MANAGER Respiratory Rate 13 12/26/2017 12:23 PM ADVANCED MANAGER Oxygen Saturation 94% 12/26/2017 12:23 PM ADVANCED MANAGER Inhaled Oxygen Concentration - - Weight 127.9 kg (282 lb) 12/26/2017 8:15 AM ADVANCED MANAGER Height 185.4 cm (6' 1) 12/26/2017 8:15 AM ADVANCED MANAGER Body Mass Index 37.21 12/26/2017 8:15 AM ADVANCED MANAGER Plan of Treatment Health Maintenance Due Date Last Done Comments COLOGUARD (AGES 45-75) - COL ON CA SCREENING 1954 COLON MONITORING 1954 COLONOSCOPY - COLON CA SCREENING 1954 CT COLONOGRAPHY - COLON CA SCREENING 1954 Colorectal Cancer Screening 1954 FIT - COLON CA SCREENING 1954 FLEX SIG - COLON CA SCREENING 1954 LIPID TESTING 1954 MEDICARE AWV 12 MONTHS 1954 DTAP/TDAP/TD VACCINES (1 - Tdap) 1973 PNEUMOCOCCAL VACCINE 50+ (1 of 1 - PCV) 2004 ZOSTER VACCINE (1 of 2) 2004 DEPRESSION SCREENING 10/30/2024 COVID-19 VACCINE (1 - 2023-2 5 season) 2025 INFLUENZA VACCINE (#1) 2025 Respiratory Syncytial Virus [...] RNA QN PCR Routine 11/13/2017 1:39 PM ADVANCED MANAGER from Last 3 Months or Most Recently Relevant to Health Maintenance Results * HEPATITIS C AB W/RFLX TO HCV RNA QN PCR (11/13/2017 1:39 PM ADVANCED MANAGER) Hepatitis C Antibody 0.2 0.0 - 0.9 s/co ratio [facility] ([facility]) 11/13/2017 1:39 PM ADVANCED MANAGER 11/13/2017 Narrative [facility] ([facility]) - 11/14/2017 7:11 AM ADVANCED MANAGER Performed at: 01 - [facility] [address] [place], [place] [id number] Wheel Presser: Wayne Kelly PhD, Phone: [phone] Christos Blum MD LAB - CHEMISTR Y ORDERABLES Final Result [facility] ([facility]) [address] [place] [address], [facility] from Last 3 Months or Most Recently Relevant to Health Maintenance Insurance MEDICARE MEDICARE [facility] SELF PAY NO INSURANCE Member Subscriber Plan / Payer (Ef fective for All Dates) Name:Juan Libertad Rohit Member ID:Not on file Relation to Subscriber:Not on file Name:LIBERTAD LORENZO Subscriber ID:Not on file (Home) Address: [address] [place] [id number] Payer ID:Not on file Group ID:Not on file Type:Self Pay Address: [place], [place] Care Teams Manufacturing Production Technician Relationship Specialty Start Date End Date Dale Funes MD PCP - General 03/14/18
--- NOTE | 2025-07-18 11:12 | ECG_ITS ---
Test Date: 2025-07-18 11:29:34 Measurements Intervals [place] Rate: 68 P: -39 MD: 228 QRS: 231 QRSD: 151 T: -7 QT: 416 QTc: 443 Interpretive Statements SINUS RHYTHM WITH FIRST DEGREE AV BLOCK INDETERMINATE AXIS RIGHT BUNDLE BRANCH BLOCK [120+ ms QRS DURATION, UPRIGHT V1, 40+ ms S IN I/aVL/V4/V5/V6] ABNORMAL ECG No previous ECG available for comparison Electronically Signed On 07-18-2025 13:06:11 CDT by Tristin Meza M.D.
== END 2025-07-18 11:00 | disposition home or self-care (01) ==
PROVIDERS: PCP Family Medicine; Visit Provider Orthopaedic Surgery
DX: I10 Essential (primary) hypertension (principal); G47.33 Obstructive sleep apnea (adult) (pediatric); I45.10 Unspecified right bundle-branch block; R94.31 Abnormal electrocardiogram [ECG] [EKG]
CPT/HCPCS: 93005

== ENCOUNTER 2025-07-28 07:57 | Outpatient (CLI) | payer MEDICARE, OTHER, SELFPAY ==
[2025-07-28 10:12] LABS: Hematocrit 44.4 % (42.0-52.0); Hemoglobin 14.2 g/dL (14.0-18.0); Immature Granulocyte Percent A 4.6 % (0-0.5); Lymphocytes Absolute Auto 1.47 K/mm3 (0.9-3.2); Mean Corpuscular HGB Conc 32.0 g/dl (32-36); Mean Corpuscular Hemoglobin 30.1 pg (26-34); Mean Corpuscular Volume 94.3 fl (80-100); Nucleated Red Blood Cells Absolute Auto 0.000 K/mm3 (0.0-0.012); Nucleated Red Blood Cells Perc 0.0 % (0.0-0.2); Platelet Count Result 265 k/mm3 (150-375); Red Blood Count 4.71 M/mm3 (4.6-6.20); White Blood Count 13.8 K/mm3 (4.5-10.0)
[2025-07-28 10:18] LABS: Add Urine Microscopic? YES; Appearance Urine Clear (Clear); Glucose Urine UA Negative (Negative); Leukocyte Esterase Ur Trace LEU/UL (Negative); Nitrate Urine Negative (Negative); Specific Grav Ur 1.022 (1.001-1.035)
[2025-07-28 10:23] LABS: Hemoglobin A1C 7.0 % (<5.7); INR 1.1; Prothrombin Time 14.2 Seconds (11.1-14.7)
[2025-07-28 10:24] LABS: Partial Thromboplastin Time 27.4 Seconds (22.3-36.8)
[2025-07-28 10:31] LABS: Albumin Level 4.5 g/dL (3.5-5.1); Anion Gap 9 mmol/L (4-12); Blood Urea Nitrogen 31 mg/dL (9-20); Calcium 9.2 mg/dL (8.4-10.2); Carbon Dioxide 26 mmol/L (22-30); Chloride 102 mmol/L (98-107); Estimated Glomerular Filt Rate 49; Glucose 133 mg/dL (65-110); Potassium 4.9 mmol/L (3.4-5.0); Sodium 137 mmol/L (137-145)
[2025-07-28 11:21] LABS: MRSA (PCR) NOT DETECTED (NOT DETECTE)
== END 2025-07-28 07:58 | disposition home or self-care (01) ==
PROVIDERS: PCP Family Medicine; Visit Provider Orthopaedic Surgery
DX: M17.11 Unilateral primary osteoarthritis, right knee (principal); Z01.818 Encounter for other preprocedural examination
CPT/HCPCS: 80048; 80307; 81001; 82040; 83036; 85025; 85610; 85730; 86850; 86900; 86901; 87086; 87641

== ENCOUNTER 2025-08-06 15:32 | Inpatient (IN) | payer MEDICARE, OTHER, SELFPAY ==
--- NOTE | 2025-07-28 07:58 | PC.NURSE ---
[facility] has started construction of its new state of the art ER which will open Spring 2026. With this, we anticipate parking may be a challenge for some our surgical patients and families. Parking spaces are limited but are available for all Surgical, obstetrics, and ER patients sharing this lot. If you arrive and find you are having a hard time finding a parking space, please note that we understand the challenges, please drive around the hospital and park near Hospital Entrance 1. When you enter this entrance, you can ask a volunteer to direct or take you back to the surgical waiting area to check in. We appreciate everyone?s understanding of these expected challenges while we build for your future. Report to the Outpatient Waiting Room, entrance under the green pavilion located off [address], at time __10 AM on date _08/05/25 . Planned Procedure Time: __1200 NOON .? Time changes happen often and if your time is changed the preop area will call you the afternoon before. - You and your visitor will be asked to self-screen and do not enter if you have any COVID symptoms. Please call surgeon if you need to reschedule. - A mask is optional within the hospital at this time. Patients may have clear liquids (water, carbonated beverages, clear teas, apple juice) until 3 hours prior to surgery ( 9 AM) with a maximum of 20 ounces. - No food from midnight until time of surgery and no smoking, or chewing tobacco (or any form of nicotine). No chewing gum, candy or mints. Take only the following medications with a SIP of water on the morning of surgery: __AMLODIPINE,DULOXETINE,LEVOTHYROXINE, DO NOT STOP ANY OF YOUR OTHER PRESCRIPTION MEDICATIONS PRIOR TO SURGERY EXCEPT THE FOLLOWING Hold all vitamins and supplements for 3 days per anesthesiologist.LAST DOSE 08/01/25 Medications to discontinue per physician ____ASPIRIN PER DR YOUNGER Date to take last dose Please no make-up, nail welsh, hairspray, perfume, deodorant, or body powder the day of surgery.? No jewelry (including any body piercings) or valuables the day of surgery, leave them at home.? Please take a shower or bath the night before, or the morning of, surgery with an antibacterial soap.? Wear comfortable, loose fitting clothing.? Children are encouraged to wear pajamas. - Jewelry must be removed prior to entering the operating room.? Rings and piercings that are not removed may be cut off. - The hospital will not accept responsibility for valuables.? - Please leave all valuables, including medications, at home the day of surgery. TOTAL JOINT CLASS 07/30/25 AT 10 AM If you are going home after surgery, a licensed route sales delivery drivers supervisor must drive you home.? - NO public transportation without another adult if you receive anesthesia. - We recommend that an adult stay with you for 24 hours following discharge. - We also recommend that you do not drive, make important decision, drink alcoholic beverages, or take any drugs that were not prescribed by your health care provider for at least 24 hours after your discharge time. For Pediatric surgeries, we recommend two adults accompany the child home. Follow any additional instructions given to you from your surgeon. VERBAL AND WRITTEN instructions given to __PATIENT and asked if any additional questions and then verbalized understanding. Patient advised to call surgeon office or pre surgery nurse liaison [phone] if any additional questions.
[2025-07-28 08:05] VITALS: BMI 39.4
--- OUTSIDE RECORDS SUMMARY | 2025-07-28 08:09 | XMS_ITS | Clinical Summary ---
Author Organization [facility] Address [address] [address] Phone Care Team Providers Care Land Mobile Radio Technician Name Role Phone Dale Funes MD [...] 2004 Zoster Immunization (1 of 2) 2004 Influenza Immunization (#1) 2025 SARS-COV-2 Immunization ( - 2023-25 season) 2025 Respiratory Syncytial Virus (RSV) Immunization (Adult) [...] to complete this topic Insurance Care Teams Land Mobile Radio Technician Relationship Specialty Start Date End Date Dale Funes MD [address] [address] PCP - General Family Medicine 11/17/16
--- OUTSIDE RECORDS SUMMARY | 2025-07-28 08:09 | XMS_ITS | Clinical Summary ---
Author Organization [facility] Address [address] [place] [address] Care Team Providers Care Marking Stitcher Name Role Phone Dale Funes MD Unavailable Dale Funes MD Primary Care Provider [phone] Allergies No known active allergies Medications allopurinol [...] evening 3 06/11/20 19 Active calcium carbonate (IEZB-WWV-304) 1,250 MG (500 mg of elemental calcium) [...] Active cholecalciferol (VITAMIN D-3) 50,000 unit capsule 46450 UNIT ORALLY WEEKLY 12/18/19 23 Active DULoxetine [...] Knee Surgery - (Added by TW Conv) [place] RPR UMBILICAL HERNIA < 5 YRS REDUCIBLE Umbilical Hernia Repair - (Added by TW Conv) [place] ARTHRD ANT INTERBODY MIN DSC CRV BELOW [...] - (Added by TW Conv) Diabetes mellitus Thyroid disease Hypercholesteremia Hypertension Asthma Kidney stone [...] on file Legal Sex Male 1: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 Gender Identity Not on file Sexual [...] 01/22/2018, 12/11/2017 Medical Devices Implanted Type Area Vacuum Pan Tender Device Identifier Shelf Expiration Date Model / Serial / Lot Conmed Kathleen Conmed 11mm Duraclip [id number] - [id number] Implanted:Qty: 1 on 03/10/2023 by Rosario Bravo MD at [facility] Conmed Kathleen 11/12/2024 [id number] / / [id number] Conmed Kathleen Conmed 11mm Duraclip [id number] - [id number] Implanted:Qty: 1 on 03/10/2023 by Rosario Bravo MD at [facility] Conmed Kathleen 11/12/2024 [id number] / / [id number] Insurance MEDICARE [facility] Address: [address] [address] [facility] MEDICARE [facility] MEDICARE [employer] COMPENSATION GENERIC Advance Directives For more information, please contact: [phone] * Full Code (Latest Code Status on File) Date Activated Date Inactivated Comments 03/10/2023 7:16 AM 03/10/2023 1:30 PM Care Teams Marking Stitcher Relationship Specialty Start Date End Date Dale Funes MD [address] [address] PCP - General Family Medicine 03/07/23 Dale Funes MD [address] [address] 06/25/19
--- OUTSIDE RECORDS SUMMARY | 2025-07-28 08:09 | XMS_ITS | Clinical Summary ---
Author Organization [facility] Address [address] [place] [address] Care Team Providers Care Engineering Technical Analyst Name Role Phone Dale Funes MD Primary Care Provider [phone] Source Comments [facility],non-owned Affiliates and Associated Physician Practices is amultiple site organization consisting of ambulatory clinics and hospital sitesin [place], [place], [place] and [place]. This disclosure is being madepursuant to the Care Everywhere program and may not contain all information available regarding this patient. Last updated 18.[facility] Social History Tobacco Use Types Packs/Day Years Used Date Smoking Tobacco: Never Assessed Sex and Gender Information Value Date Recorded Sex Assigned at Not on file Legal Sex Male 11:00 PM GAUGE AND INSTRUMENT INSPECTOR Gender Identity Not on file Sexual Orientation Not on file Last Filed Vital Signs Vital Sign Reading Time Taken Comments Blood Pressure 113/72 12/26/2017 12:23 PM GAUGE AND INSTRUMENT INSPECTOR Pulse 75 12/26/2017 12:23 PM GAUGE AND INSTRUMENT INSPECTOR Temperature 36.3 C (97.4 F) 12/26/2017 8:19 AM GAUGE AND INSTRUMENT INSPECTOR Respiratory Rate 13 12/26/2017 12:23 PM GAUGE AND INSTRUMENT INSPECTOR Oxygen Saturation 94% 12/26/2017 12:23 PM GAUGE AND INSTRUMENT INSPECTOR Inhaled Oxygen Concentration - - Weight 127.9 kg (282 lb) 12/26/2017 8:15 AM GAUGE AND INSTRUMENT INSPECTOR Height 185.4 cm (6' 1) 12/26/2017 8:15 AM GAUGE AND INSTRUMENT INSPECTOR Body Mass Index 37.21 12/26/2017 8:15 AM GAUGE AND INSTRUMENT INSPECTOR Plan of Treatment Health Maintenance Due Date [...] RNA QN PCR Routine 11/13/2017 1:39 PM GAUGE AND INSTRUMENT INSPECTOR from Last 3 Months or Most Recently Relevant to Health Maintenance Results * HEPATITIS C AB W/RFLX TO HCV RNA QN PCR (11/13/2017 1:39 PM GAUGE AND INSTRUMENT INSPECTOR) Hepatitis C Antibody 0.2 0.0 - 0.9 s/co ratio [facility] ([facility]) 11/13/2017 1:39 PM GAUGE AND INSTRUMENT INSPECTOR 11/13/2017 Narrative [facility] ([facility]) - 11/14/2017 7:11 AM GAUGE AND INSTRUMENT INSPECTOR Performed at: 01 - [facility] [address] [place], [place] [id number] Core Setter: Wayne Kelly PhD, Phone: [phone] Christos Blum MD LAB - CHEMISTR Y ORDERABLES Final Result [facility] ([facility]) [address] [place] [address], [facility] from Last 3 Months or Most Recently Relevant to Health Maintenance Insurance MEDICARE MEDICARE [facility] SELF PAY NO INSURANCE Member Subscriber Plan / Payer (Ef fective for All Dates) Name:Juan Libertad Rohit Member ID:Not on file Relation to Subscriber:Not on file Name:LIBERTAD LORENZO Subscriber ID:Not on file (Home) Address: [address] [place] [id number] Payer ID:Not on file Group ID:Not on file Type:Self Pay Address: [place], [place] Care Teams Engineering Technical Analyst Relationship Specialty Start Date End Date Dale Funes MD PCP - General 03/14/18
[2025-07-28 09:09] VITALS: BP 126/69; PULSE 74; RESP 18; TEMP 36.8; O2SAT 98
[2025-07-28 10:12] LABS: Hematocrit 44.4 % (42.0-52.0); Hemoglobin 14.2 g/dL (14.0-18.0); Immature Granulocyte Percent A 4.6 % (0-0.5); Lymphocytes Absolute Auto 1.47 K/mm3 (0.9-3.2); Mean Corpuscular HGB Conc 32.0 g/dl (32-36); Mean Corpuscular Hemoglobin 30.1 pg (26-34); Mean Corpuscular Volume 94.3 fl (80-100); Nucleated Red Blood Cells Absolute Auto 0.000 K/mm3 (0.0-0.012); Nucleated Red Blood Cells Perc 0.0 % (0.0-0.2); Platelet Count Result 265 k/mm3 (150-375); Red Blood Count 4.71 M/mm3 (4.6-6.20); White Blood Count 13.8 K/mm3 (4.5-10.0)
[2025-07-28 10:18] LABS: Add Urine Microscopic? YES; Appearance Urine Clear (Clear); Glucose Urine UA Negative (Negative); Leukocyte Esterase Ur Trace LEU/UL (Negative); Nitrate Urine Negative (Negative); Specific Grav Ur 1.022 (1.001-1.035)
[2025-07-28 10:23] LABS: Hemoglobin A1C 7.0 % (<5.7); INR 1.1; Prothrombin Time 14.2 Seconds (11.1-14.7)
[2025-07-28 10:24] LABS: Partial Thromboplastin Time 27.4 Seconds (22.3-36.8)
[2025-07-28 10:31] LABS: Albumin Level 4.5 g/dL (3.5-5.1); Anion Gap 9 mmol/L (4-12); Blood Urea Nitrogen 31 mg/dL (9-20); Calcium 9.2 mg/dL (8.4-10.2); Carbon Dioxide 26 mmol/L (22-30); Chloride 102 mmol/L (98-107); Estimated Glomerular Filt Rate 49; Glucose 133 mg/dL (65-110); Potassium 4.9 mmol/L (3.4-5.0); Sodium 137 mmol/L (137-145)
[2025-07-28 11:21] LABS: MRSA (PCR) NOT DETECTED (NOT DETECTE)
[2025-08-05] VITALS (13 sets, daily range): BP systolic 97–125; BP diastolic 50–87; PULSE 73–96; RESP 14–20; TEMP 36.1–36.8; O2SAT 91–99; BMI 38.4
--- OUTSIDE RECORDS SUMMARY | 2025-08-05 00:25 | XMS_ITS | Clinical Summary ---
Author Organization [facility] Address [address] [address] Phone Care Team Providers Care Restaurant Manager Name Role Phone Dale Funes MD [...] to complete this topic Insurance Care Teams Restaurant Manager Relationship Specialty Start Date End Date Dale Funes MD [address] [address] PCP - General Family Medicine 11/17/16
--- OUTSIDE RECORDS SUMMARY | 2025-08-05 00:25 | XMS_ITS | Clinical Summary ---
Author Organization [facility] Address [address] [facility] [address] [place] [address] Care Team Providers Care Bull Gang Supervisor Name Role Phone Dale Funes MD Unavailable [phone] Dale Funes MD Primary Care Provider [phone] Allergies No known active allergies Medications allopurinol [...] evening 3 06/11/20 19 Active calcium carbonate ([id number]) 1,250 MG (500 mg of elemental calcium) [...] Active cholecalciferol (VITAMIN D-3) 50,000 unit capsule 35558 UNIT ORALLY WEEKLY 12/18/19 23 Active DULoxetine [...] Knee Surgery - (Added by TW Conv) [place] RPR UMBILICAL HERNIA < 5 YRS REDUCIBLE Umbilical Hernia Repair - (Added by TW Conv) [place] ARTHRD ANT INTERBODY MIN DSC CRV BELOW [...] on file Legal Sex Male 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 Gender Identity Not on file Sexual Orientation [...] 01/22/2018, 12/11/2017 Medical Devices Implanted Type Area Credit Administrator Device Identifier Shelf Expiration Date Model / Serial / Lot Conmed Kathleen Conmed 11mm Duraclip [id number] - [id number] Implanted:Qty: 1 on 03/10/2023 by Rosario Bravo MD at [facility] Conmed Kathleen 11/12/2024 [id number] / / [id number] Conmed Kathleen Conmed 11mm Duraclip [id number] - [id number] Implanted:Qty: 1 on 03/10/2023 by Rosario Bravo MD at [facility] Conmed Kathleen 11/12/2024 [id number] / / [id number] Insurance MEDICARE [facility] Address: [address] [address] [facility] MEDICARE [facility] MEDICARE [employer] COMPENSATION GENERIC Advance Directives For more information, please contact: [phone] * Full Code (Latest Code Status on File) Date Activated Date Inactivated Comments 03/10/2023 7:16 AM 03/10/2023 1:30 PM Care Teams Bull Gang Supervisor Relationship Specialty Start Date End Date Dale Funes MD [address] [address] PCP - General Family Medicine 03/07/23 Dale Funes MD [address] [address] 06/25/19
--- NOTE | 2025-08-05 10:19 | WPDHPUPDATE1 ---
History and Physical Update Update Date/Time: 08/05/25 10:19 History and Physical has been reviewed, including an updated exam of the patient. There are NO changes in the patient's condition. Risks, benefits, and alternatives have been discussed and questions answered. Patient agrees to proceed with procedure.
[2025-08-05] MEDS: ACETAMINOPHEN 500 MG TABLET 1000 MG PO (10:57)
[2025-08-05] MEDS: TRANEXAMIC ACID 1,000MG/ISO100 1,000 MG/100 ML BAG 200 MG IVPB (11:17)
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
--- NOTE | 2025-08-05 11:58 | WPDANESPNB ---
Anes - Peripheral Nerve Block Date/Time: 08/05/25 11:58 I have discussed with the patient/family/POA the placement of a peripheral nerve block for post-operative pain management, including associated risks, benefits, complications, and side effects. Alternative methods of post-operative analgesia were detailed. Questions were solicited and answers provided to the satisfaction of the patient/family/POA. Time-Out: A pre-procedural Time-Out was completed immediately before starting the procedure and confirmed: Patient Identification, Site, Procedure, Patient Position and the Availability of Requisite Equipment. Clinical Indications: Acute post-operative pain management requested by the operative surgeon. Nerve Block Insertion Note Anes-nerve block: adductor canal right Patient position: supine Skin prep: chlorhexidine Needle: 22 gauge, stimulating, insulated echogenic needle. Needle length: 80 mm Technique: ultrasound Injectate: bupivacaine 0.5% with epi 5 mcg/ml (30cc - no epi) Observations: tolerated well Complications: none Procedure start time:: 1217 Procedure end time:: 1220
[2025-08-05] MEDS: ceFAZolin 3 GM/D5W 100 ML 100 ML IVPB (12:33)
[2025-08-05] MEDS: SODIUM CHLORIDE 0.9% IV 37.7 ML, MORPHINE SULFATE INJ (*CRX) 2 MG, ROPivacaine HCL 1% 2... INFILTRATE (12:33)
[2025-08-05] MEDS: GENTAMICIN BONE CEMENT REFOBACIN 1 EACH TOPICAL (14:06)
[2025-08-05] MEDS: TRANEXAMIC ACID 1,000 MG/10 ML AMPUL 1000 MG IV PUSH (14:30)
[2025-08-05] MEDS: LACTATED RINGERS 1,000 ML 30 ML IV CONT ×2 (15:26)
[2025-08-05] MEDS: fentaNYL CITRATE INJ (*CRX) 100 MCG/2 ML VIAL 25 MCG IV PUSH ×4 (15:45→15:55)
[2025-08-05] MEDS: ONDANSETRON INJ 4 MG/2 ML VIAL IV PUSH (15:49)
--- NOTE | 2025-08-05 16:09 | P.OP_ITS ---
Procedure Note - Detailed Date of Procedure 08/05/25 Pre-op Diagnosis Rt Knee DJD Post-op Diagnosis Same Procedure Performed R TKA Surgeon Oscar Light MD Anesthesia General Description of Procedure THE RIGHT KNEE WAS PREPPED AND DRAPED IN THE STERILE FASHION. THERE WAS A 10 DEGREE FLEXION CONTRACTURE. A MIDLINE SKIN INCISION WAS MADE. A MEDIAL PARAPATELLAR ARTHROTOMY WAS MADE. THE PATELLA WAS EVERTED. THERE WAS TRICOMPARTMENT DJD. THERE WAS MINIMAL PATELLA DJD. AN INTRAMEDULLARY KAREN WAS PLACED IN THE FEMUR. A DISTAL FEMORAL CUT WAS MADE IN 5 DEGREES OF VALGUS REMOVING APPROXIMATELY 9 MM OF BONE FROM THE DISTAL FEMUR. THE FEMUR WAS SIZED TO 70. A 70 FEMORAL CUTTING BLOCK WAS PLACED IN 3 DEGREES OF EXTERNAL ROTATION AND IN ALIGNMENT WITH EDITH'S LINE AND THE TRANSEPICONDYLAR AXIS. ANTERIOR POSTERIOR AND CHAMFER CUTS WERE MADE. THE CUTS WERE EXCELLENT. NEXT AN INTRAMEDULLARY CUTTING GUIDE WAS PLACED IN THE TIBIA. A TRANS TIBIAL CUT WAS MADE ALONG THE LONG AXIS OF THE TIBIA. APPROXIMATELY 10 MM OF BONE WAS REMOVED FROM THE HIGH SIDE OF THE TIBIA. THE TIBIA WAS THEN PLANED TO A SMOOTH SURFACE. POSTERIOR FEMORAL OSTEOPHYTES WERE REMOVED FROM THE FEMORAL CONDYLES. A 79 TIBIAL TRIAL WAS PLACED IN ALIGNMENT WITH THE 1/3 MEDIAL ASPECT OF THE TIBIAL TUBERCLE. THEN A 70 FEMORAL TRIAL COMPONENT WAS PLACED. BOTH HAD EXCELLENT FITS. EVENTUALLY A 12 MM POLYETHYLENE TRIAL COMPONENT WAS PLACED. THE KNEE WAS TAKEN THROUGH A RANGE OF MOTION. THE KNEE CAME OUT TO FULL EXTENSION. THERE WAS NO ABNORMAL TILT TO THE PATELLA. THERE WAS GOOD A/P AND VARUS/VALGUS STABILITY. THERE WAS NO EXCESSIVE ROLL BACK WITH FLEXION. THE TRIAL COMPONENTS WERE REMOVED. THEN A 70 FEMORAL COMPONENT AND 79 TIBIAL COMPONENT WITH A 12 POLYETHYLENE COMPONENT WERE CEMENTED INTO PLACE. ONCE THE CEMENT WAS HARD THE KNEE WAS TAKEN THROUGH A ROM AGAIN AND FOUND TO BE STABLE WITH NO PATELLA TILT NO EXCESSIVE ROLL BACK WITH FLEXION AND GOOD STABILITY WITH COMPLETE AND FULL EXTENSION. THE KNEE WAS IRRIGATED WITH STERILE BETADINE AND WATER FOR ABOUT 3 MINUTES. THE BLEEDERS WERE CAUTERIZED. THE ARTHROTOMY WAS REPAIRED WITH NUMBER 1 VICRYL AND QUIL. THE SUB CUTANEOUS LAYER WITH 2-0 VICRYL AND THE SKIN WITH 3- 0 QUIL THEN DERMABOND. THE WOUND WAS WASHED AND A STERILE DRESSING WAS APPLIED. PATIENT WAS EXTUBATED. Estimated Blood Loss -150.0 Pathology None sent Complications No immediate complications Condition Stable Disposition PACU
[2025-08-05] MEDS: KETOROLAC 30 MG/ML VIAL (*BKC) IV PUSH (16:16)
--- NOTE | 2025-08-05 16:47 | ADMGEN ---
This patient, Teo Martinez, was admitted to [facility] Surg Room 307-01. Patient/family oriented to hospital policies and general routines including ID bracelet, bed and alarms, visiting hours, pain management, procedures, bathroom and other care routines, personal items, smoking policy, room service/diet, and visiting hours. Information on how to activate the Rapid Response Team has been discussed. Patient/Family are encouraged to report perceived risks to care and to ask questions if they do not understand what they are told or what they should do.
[2025-08-05] MEDS: metFORMIN HCL XR 500 MG TAB.SR.24H 1000 MG PO (17:29)
[2025-08-05] MEDS: CELECOXIB 200 MG CAPSULE PO (17:29)
[2025-08-05] MEDS: SENNA/DOCUSATE SODIUM TABLET 2 TAB PO (17:29)
[2025-08-05] MEDS: oxyCODONE/ACETAMINOPHEN (*CRX) 5-325 MG TABLET 1 TABLET PO ×2 (17:30→22:29)
[2025-08-05] MEDS: SODIUM CHLORIDE 0.9% IV 1,000 ML 125 ML IV CONT (17:33)
[2025-08-05] MEDS: ceFAZolin 2 GM in SODIUM CHLORIDE 0.9% IV 50 ML 100 ML IVPB (20:14)
[2025-08-05] MEDS: CYCLOBENZAPRINE HCL 10 MG TABLET PO (21:17)
[2025-08-05] MEDS: ASPIRIN 325 MG ENTERIC TABLET PO (21:17)
[2025-08-05] MEDS: ROSUVASTATIN 20 MG TABLET PO (21:18)
[2025-08-05] MEDS: FAMOTIDINE 20 MG TABLET PO (21:18)
[2025-08-05] MEDS: SULFAMETHOXAZOLE/TRIMETHOPRIM 800/160 MG DS TABLET 1 TAB PO (21:18)
[2025-08-06] VITALS (7 sets, daily range): BP systolic 112–168; BP diastolic 60–99; PULSE 73–92; RESP 16–18; TEMP 36.1–36.7; O2SAT 97–99
--- NOTE | ~2025-08-06 | XR_ITS ---
EXAMINATION: [id number], 08/05/2025 15:30 CDT HISTORY: POST OP RIGHT TKA COMPARISON: No comparisons available. Findings: No acute fracture or malalignment. Prosthesis intact Soft tissues unremarkable. Impression: No acute fracture or malalignment. Reviewed, dictated and finalized at location P. Impression: No acute fracture or malalignment.
[2025-08-06] MEDS: oxyCODONE/ACETAMINOPHEN (*CRX) 10-325 MG TABLET 1 TAB PO ×3 (02:07→22:15)
[2025-08-06] MEDS: ceFAZolin 2 GM in SODIUM CHLORIDE 0.9% IV 50 ML 100 ML IVPB ×2 (03:52→12:46)
[2025-08-06] MEDS: LEVOTHYROXINE SODIUM 100 MCG TABLET PO (05:30)
[2025-08-06 06:10] LABS: Hematocrit 39.6 % (42.0-52.0); Hemoglobin 12.7 g/dL (14.0-18.0); Mean Corpuscular HGB Conc 32.1 g/dl (32-36); Mean Corpuscular Hemoglobin 30.3 pg (26-34); Mean Corpuscular Volume 94.5 fl (80-100); Platelet Count Result 309 k/mm3 (150-375); Red Blood Count 4.19 M/mm3 (4.6-6.20); White Blood Count 30.8 K/mm3 (4.5-10.0)
[2025-08-06 06:41] LABS: Anion Gap 9 mmol/L (4-12); Blood Urea Nitrogen 41 mg/dL (9-20); Calcium 8.6 mg/dL (8.4-10.2); Carbon Dioxide 20 mmol/L (22-30); Chloride 104 mmol/L (98-107); Estimated CRCL calculation 42 ml/min; Estimated Glomerular Filt Rate 31; Glucose 158 mg/dL (65-110); Potassium 6.4 mmol/L (3.4-5.0); Sodium 133 mmol/L (137-145)
[2025-08-06 06:49] LABS: Band Neutrophils Percent 2 % (0-6); Basophils Absolute Manual 0.00 K/mm3 (0.0-0.1); Basophils Percent Manual 0 % (0-1); Eosinophils Absolute Manual 0.00 K/mm3 (0.02-0.50); Eosinophils Percent Manual 0 % (0-4); Lymphocytes Absolute Manual 2.15 K/mm3 (1.1-4.5); Lymphocytes Percent Manual 7 % (18-44); Monocytes Absolute Manual 0.92 K/mm3 (0.1-0.90); Monocytes Percent Manual 3 % (3-9); Neutrophils Absolute Manual 27.72 K/mm3 (1.3-6.7); Neutrophils Percent Manual 88 % (46-73); Total Cells Counted 100
[2025-08-06 06:50] LABS: Anisocytosis Occasional; Burr Cells Occasional
[2025-08-06 06:51] LABS: Schistocytes None Seen
[2025-08-06 07:14] LABS: Potassium 5.3 mmol/L (3.4-5.0)
[2025-08-06] MEDS: metFORMIN HCL XR 500 MG TAB.SR.24H 1000 MG PO ×2 (08:15→18:36)
[2025-08-06] MEDS: ASPIRIN 325 MG ENTERIC TABLET PO ×2 (08:15→20:27)
[2025-08-06] MEDS: oxyCODONE/ACETAMINOPHEN (*CRX) 5-325 MG TABLET 1 TABLET PO ×2 (08:15→12:54)
[2025-08-06] MEDS: SENNA/DOCUSATE SODIUM TABLET 2 TAB PO ×2 (08:15→18:37)
[2025-08-06] MEDS: FAMOTIDINE 20 MG TABLET PO ×2 (08:15→20:27)
[2025-08-06] MEDS: SULFAMETHOXAZOLE/TRIMETHOPRIM 800/160 MG DS TABLET 1 TAB PO ×2 (08:15→20:27)
[2025-08-06] MEDS: FERROUS SULFATE 325 MG TABLET PO (08:15)
[2025-08-06] MEDS: CELECOXIB 200 MG CAPSULE PO ×2 (08:15→18:36)
[2025-08-06] MEDS: SODIUM CHLORIDE 0.9% IV 1,000 ML 500 ML IV CONT (10:39)
[2025-08-06 14:01] LABS: Hematocrit 36.6 % (42.0-52.0); Hemoglobin 11.9 g/dL (14.0-18.0); Mean Corpuscular HGB Conc 32.5 g/dl (32-36); Mean Corpuscular Hemoglobin 30.6 pg (26-34); Mean Corpuscular Volume 94.1 fl (80-100); Platelet Count Result 331 k/mm3 (150-375); Red Blood Count 3.89 M/mm3 (4.6-6.20); White Blood Count 30.3 K/mm3 (4.5-10.0)
[2025-08-06 14:22] LABS: Anion Gap 12 mmol/L (4-12); Blood Urea Nitrogen 33 mg/dL (9-20); Calcium 8.5 mg/dL (8.4-10.2); Carbon Dioxide 18 mmol/L (22-30); Chloride 105 mmol/L (98-107); Estimated CRCL calculation 48 ml/min; Estimated Glomerular Filt Rate 37; Glucose 94 mg/dL (65-110); Potassium 5.3 mmol/L (3.4-5.0); Sodium 135 mmol/L (137-145)
--- NOTE | 2025-08-06 15:20 | PM.PNORT ---
Progress Note: A&P Assessment and Plan (1) Right knee DJD: Code(s): M17.11 - Unilateral primary osteoarthritis, right knee Status: Acute Assessment and Plan: POD 1 DOING WELL. WE WILL OBSERVE HIS K+ OVERNIGHT AND GET ANOTHER CHEMISTRY IN THE MORNING AND IF TRENDING NORMAL HE WILL BE DISCHARGED AFTER HIS PT. IN THE MEAN TIME WE WILL CONTINUE HIS FLUIDS Subjective Subjective Date/Time Seen: 08/06/25 15:20 Interval history: POD 1 HE IS DOING WELL. HE HAD A CRITICAL POTASSIUM THIS MORNING OF 6.4. CURRENTLY IT IS 5.3. HE IS ASYMPTOMATIC. HE IS DOING WELL WITH PT. NO CALF PAIN Exam Extrem: Other: VSS AFEBRILE DRESSING DRY NV INTACT NEG HOMANS SIGN, CALF AND THIGH SOFT NON TENDER Objective Data Vital Signs Vital Signs: Vital Signs - 24 hr 08/05/25 15:26 08/05/25 15:40 08/05/25 15:55 Temperature 36.8 C Pulse Rate 90 89 86 Respiratory Rate 16 18 14 Blood Pressure 117/71 107/65 97/52 L Pulse Oximetry 92 92 92 Oxygen Delivery Simple Face Mask Simple Face Mask Room Air Oxygen Flow Rate 8 8 08/05/25 15:57 08/05/25 16:10 08/05/25 16:25 Temperature Pulse Rate 87 88 Respiratory Rate 14 16 Blood Pressure 106/64 125/56 L Pulse Oximetry 92 92 Oxygen Delivery Nasal Cannula Nasal Cannula Nasal Cannula Oxygen Flow Rate 2 2 2 08/05/25 16:33 08/05/25 16:45 08/05/25 16:58 Temperature 36.6 C 36.1 C L Pulse Rate 88 84 Respiratory Rate 20 18 Blood Pressure 100/60 99/50 L Pulse Oximetry 94 99 91 Oxygen Delivery Nasal Cannula Nasal Cannula Oxygen Flow Rate 2 2 08/05/25 17:13 08/05/25 17:43 08/05/25 18:45 Temperature 36.2 C L 36.3 C L Pulse Rate 79 91 96 Respiratory Rate 18 18 18 Blood Pressure 103/62 120/67 101/58 L Pulse Oximetry 94 99 93 Oxygen Delivery Oxygen Flow Rate 08/05/25 21:17 08/05/25 22:11 08/06/25 02:20 Temperature 36.7 C 36.7 C Pulse Rate 94 92 Respiratory Rate 20 18 Blood Pressure 119/87 119/87 Pulse Oximetry 97 97 Oxygen Delivery Room Air Oxygen Flow Rate 08/06/25 06:20 08/06/25 07:54 08/06/25 08:23 Temperature 36.6 C Pulse Rate 92 Respiratory Rate 18 Blood Pressure 168/99 H Pulse Oximetry 98 Oxygen Delivery Room Air Room Air Oxygen Flow Rate 08/06/25 09:22 08/06/25 10:20 Temperature 36.3 C L Pulse Rate 73 Respiratory Rate 16 Blood Pressure 128/66 Pulse Oximetry 99 Oxygen Delivery Room Air Oxygen Flow Rate Intake/Output Intake/Output: Intake & Output 08/03/25 08/04/25 08/05/25 08/06/25 23:59 23:59 23:59 23:59 Intake Total 550 1336 Balance 550 1336 Meds/Results Medications: Active Medications Generic Name Dose Route Start Last Admin Trade Name Freq PRN Reason Stop Dose Admin Acetaminophen 500 mg 08/05/25 16:35 Acetaminophen 500 Mg Tablet PO Q6H PRN Pain Rated 1-3 Amlodipine Besylate 10 mg 08/06/25 09:00 08/06/25 08:15 Amlodipine Besylate 10 Mg Tablet PO 10 mg DAILY TAMMY Administration Aspirin 325 mg 08/05/25 21:00 08/06/25 08:15 Aspirin 325 Mg Enteric Tablet PO 325 mg Q12HR TAMMY Administration Celecoxib 200 mg 08/05/25 17:00 08/06/25 08:15 Celecoxib 200 Mg Capsule PO 200 mg BIDWM TAMMY Administration Cyclobenzaprine HCl 10 mg 08/05/25 21:00 08/05/25 21:17 Cyclobenzaprine Hcl 10 Mg Tablet PO 10 mg HS TAMMY Administration Diazepam 5 mg 08/05/25 16:35 Diazepam (*Crx) 5 Mg Tablet PO Q8H PRN Spasms Diphenhydramine HCl 25 mg 08/05/25 16:35 Diphenhydramine Hcl Inj 50 Mg/Ml Vial IV PUSH Q6H PRN Itching Duloxetine HCl 30 mg 08/06/25 09:00 08/06/25 08:16 Duloxetine Hcl 30 Mg Capsule.Dr PO 30 mg DAILY TAMMY Administration Famotidine 20 mg 08/05/25 21:00 08/06/25 08:15 Famotidine 20 Mg Tablet PO 20 mg Q12HR TAMMY Administration Ferrous Sulfate 325 mg 08/06/25 09:00 08/06/25 08:15 Ferrous Sulfate 325 Mg Tablet PO 325 mg DAILY TAMMY Administration Hydromorphone HCl 1 mg 08/05/25 16:35 Hydromorphone Hcl Inj (*Crx) 1 Mg/Ml Syr IV PUSH Q2H PRN Breakthrough Pain Rated 7-10 or NPO Hydromorphone HCl 0.5 mg 08/05/25 16:35 Hydromorphone Hcl Inj (*Crx) 1 Mg/Ml Syr IV PUSH Q2H PRN Breakthrough Pain Rated 4-6 or NPO Ibuprofen 800 mg in 200 mls @ 400 mls/hr 08/05/25 16:35 Caldolor 800 Mg/200 Ml IVPB Q6H PRN Breakthrough Pain Rated 1-3 or NPO Sodium Chloride 1,000 mls @ 125 mls/hr 08/06/25 15:00 Normal Saline Iv IV CONT .Q8H TAMMY Levothyroxine Sodium 100 mcg 08/06/25 06:30 08/06/25 05:30 Levothyroxine Sodium 100 Mcg Tablet PO 100 mcg DAILY@0630 TAMMY Administration Lisinopril 40 mg 08/06/25 09:00 08/06/25 08:14 Lisinopril 20 Mg Tablet PO 40 mg DAILY TAMMY Administration Metformin HCl 1,000 mg 08/05/25 17:00 08/06/25 08:15 Metformin Hcl Xr 500 Mg Tab.Sr.24h PO 1,000 mg BID TAMMY Administration Miscellaneous Information 1 each 08/05/25 00:01 Sulfamethoxazole/Trimethoprim 800/160 Mg Ds Tablet Clarify Stop Date As Started As A Home XX 09/04/25 00:00 [facility] Naloxone HCl 0.1 mg 08/05/25 16:35 Naloxone Hcl 0.4 Mg/Ml Vial IV PUSH Q2M PRN Opiate Reversal Ondansetron HCl 4 mg 08/05/25 16:35 Ondansetron Inj 4 Mg/2 Ml Vial IV PUSH Q4H PRN Nausea And Vomiting Oxycodone/Acetaminophen 1 tablet 08/05/25 16:35 08/06/25 12:54 Oxycodone/Acetaminophen (*Crx) 5-325 Mg Tablet PO 1 tablet Q4H PRN Administration Pain Rated 4-6 Oxycodone/Acetaminophen 1 tab 08/05/25 16:35 08/06/25 02:07 Oxycodone/Acetaminophen (*Crx) 10-325 Mg Tablet PO 1 tab Q6H PRN Administration Pain Rated 7-10 Polyethylene Glycol 17 gm 08/06/25 09:00 08/06/25 08:15 Polyethylene Glycol 3350 17 Gm Powd.Pack PO 17 gm QAM TAMMY Administration Ropinirole HCl 0.25 mg 08/05/25 21:00 08/06/25 08:14 Ropinirole Hcl 0.25 Mg Tablet PO 0.25 mg Q12HR TAMMY Administration Rosuvastatin Calcium 20 mg 08/05/25 21:00 08/05/25 21:18 Rosuvastatin 20 Mg Tablet PO 20 mg QHS TAMMY Administration Senna/Docusate Sodium 2 tab 08/05/25 17:00 08/06/25 08:15 Senna/Docusate Sodium Tablet PO 2 tab BID ATMMY Administration Trimethoprim/Sulfamethoxazole 1 tab 08/05/25 21:00 08/06/25 08:15 Sulfamethoxazole/Trimethoprim 800/160 Mg Ds Tablet PO 1 tab Q12HR TAMMY Administration Radiology Results: ITS Impressions Knee X-Ray 08/05/25 15:55 Impression: No acute fracture or malalignment. Labs Labs: Laboratory Results - last 24 hr 08/05/25 08/05/25 08/06/25 15:37 17:10 05:43 WBC 30.8 H RBC 4.19 L Hgb 12.7 L Hct 39.6 L MCV 94.5 MCH 30.3 MCHC 32.1 RDW 14.9 H Plt Count 309 MPV 11.2 H Immature Gran % (Auto) Not Reportable Neut % (Auto) Not Reportable Lymph % (Auto) Not Reportable [place] % (Auto) Not Reportable Eos % (Auto) Not Reportable Baso % (Auto) Not Reportable Lymph # (Auto) Not Reportable [place] # (Auto) Not Reportable Eos # (Auto) Not Reportable Baso # (Auto) Not Reportable Abs Immat Gran (auto) Not Reportable Absolute Neuts (auto) Not Reportable Absolute Nucleated RBC Not Reportable Total Counted 100 Neutrophils % (Manual) 88 H Band Neutrophils % 2 Lymphocytes % (Manual) 7 L Monocytes % (Manual) 3 Eosinophils % (Manual) 0 Basophils % (Manual) 0 Nucleated RBC % Not Reportable Abs Neuts (Manual) 27.72 H Abs Lymphs (Manual) 2.15 Abs Monocytes (Manual) 0.92 H Absolute Eos (Manual) 0.00 L Abs Basophils (Manual) 0.00 Platelet Estimate Adequate Anisocytosis Occasional Velia Cells Occasional Schistocytes None seen Sodium 133 L Potassium 6.4 H* Chloride 104 Carbon Dioxide 20 L Anion Gap 9 BUN 41 H D Creatinine 2.09 H Estim Creat Clear Calc 42 Estimated GFR 31 L Glucose 158 H POC Capillary Glucose 150 H 176 H Calcium 8.6 08/06/25 08/06/25 06:57 13:56 WBC 30.3 H RBC 3.89 L Hgb 11.9 L Hct 36.6 L MCV 94.1 MCH 30.6 MCHC 32.5 RDW 15.2 H Plt Count 331 MPV 10.4 Immature Gran % (Auto) Neut % (Auto) Lymph % (Auto) [place] % (Auto) Eos % (Auto) Baso % (Auto) Lymph # (Auto) [place] # (Auto) Eos # (Auto) Baso # (Auto) Abs Immat Gran (auto) Absolute Neuts (auto) Absolute Nucleated RBC Total Counted Neutrophils % (Manual) Band Neutrophils % Lymphocytes % (Manual) Monocytes % (Manual) Eosinophils % (Manual) Basophils % (Manual) Nucleated RBC % Abs Neuts (Manual) Abs Lymphs (Manual) Abs Monocytes (Manual) Absolute Eos (Manual) Abs Basophils (Manual) Platelet Estimate Anisocytosis Velia Cells Schistocytes Sodium 135 L Potassium 5.3 H 5.3 H Chloride 105 Carbon Dioxide 18 L Anion Gap 12 BUN 33 H Creatinine 1.81 H Estim Creat Clear Calc 48 Estimated GFR 37 L Glucose 94 POC Capillary Glucose Calcium 8.5
[2025-08-06] MEDS: SODIUM CHLORIDE 0.9% IV 1,000 ML 125 ML IV CONT (16:17)
[2025-08-06] MEDS: SODIUM ZIRCONIUM CYCLOSILICATE 10 GM POWD.PACK PO (16:22)
[2025-08-06] MEDS: CYCLOBENZAPRINE HCL 10 MG TABLET PO (20:27)
[2025-08-06] MEDS: ROSUVASTATIN 20 MG TABLET PO (20:27)
[2025-08-07 01:20] VITALS: BP 110/70; PULSE 66; RESP 18; TEMP 36.5; O2SAT 97
[2025-08-07] MEDS: SODIUM CHLORIDE 0.9% IV 1,000 ML 125 ML IV CONT ×2 (01:56→17:22)
[2025-08-07 04:30] VITALS: BP 110/62; PULSE 62; RESP 18; TEMP 36; O2SAT 98
[2025-08-07 06:02] LABS: Anion Gap 6 mmol/L (4-12); Blood Urea Nitrogen 34 mg/dL (9-20); Calcium 8.4 mg/dL (8.4-10.2); Carbon Dioxide 23 mmol/L (22-30); Chloride 107 mmol/L (98-107); Estimated CRCL calculation 55 ml/min; Estimated Glomerular Filt Rate 43; Glucose 110 mg/dL (65-110); Potassium 5.6 mmol/L (3.4-5.0); Sodium 136 mmol/L (137-145)
[2025-08-07] MEDS: LEVOTHYROXINE SODIUM 100 MCG TABLET PO (06:06)
--- NOTE | 2025-08-07 08:32 | PCOTNOTE ---
Patient refused treatment stating he did not need OT services and has AE at home if he needs it.
[2025-08-07] MEDS: SODIUM POLYSTYRENE SULFONONATE 15 GM/60 ML BTL PO ×2 (08:59→17:22)
[2025-08-07] MEDS: SENNA/DOCUSATE SODIUM TABLET 2 TAB PO ×2 (08:59→16:42)
[2025-08-07] MEDS: metFORMIN HCL XR 500 MG TAB.SR.24H 1000 MG PO ×2 (08:59→16:42)
[2025-08-07] MEDS: SULFAMETHOXAZOLE/TRIMETHOPRIM 800/160 MG DS TABLET 1 TAB PO ×2 (08:59→20:56)
[2025-08-07] MEDS: CELECOXIB 200 MG CAPSULE PO ×2 (09:00→16:41)
[2025-08-07] MEDS: FAMOTIDINE 20 MG TABLET PO ×2 (09:00→20:55)
[2025-08-07] MEDS: ASPIRIN 325 MG ENTERIC TABLET PO ×2 (09:00→20:55)
[2025-08-07] MEDS: FERROUS SULFATE 325 MG TABLET PO (09:00)
--- NOTE | 2025-08-07 09:24 | PM.PNORT ---
Progress Note: A&P Assessment and Plan (1) S/P total knee arthroplasty: Qualifiers: Laterality: right Qualified Code(s): Z96.651 - Presence of right artificial knee joint Code(s): Z96.659 - Presence of unspecified artificial knee joint Status: Acute Assessment and Plan: POD #1 : Right TKA Continue PT/OT. WBAT. Walker. HIGH FALL RISK. Continue pain control. Ice Knee. Protect skin. DVT prophylaxis with Aspirin. SCDs. Incentive Spirometry Use reviewed. Monitor Dressing. Change prior to discharge. Bowel Regimen. Dispo: Home with Home Health pending progress with PT/OT and medical clearance. (2) Hyperkalemia: Code(s): E87.5 - Hyperkalemia Status: Acute Assessment and Plan: Hospitalist consult requested. Plan Reviewed history, exam, radiographs and current labs with attending MD and covering surgeon, Dr. Light, who agrees with current plan as indicated above. No further recommendations from Dr. Light at this time. Time Spent With Patient Time with patient: 15 - 25 minutes Subjective Subjective Date/Time Seen: 08/07/25 09:24 Post Op day: 2 Interval history: POD #2: Right TKA Patient doing well. Pain well controlled. Electrolyte abnormalities requiring prolonged hospitalization. Hospitalist following. Review of Systems Review of Systems: All systems reviewed & are unremarkable except as noted in HPI and below Constitutional: Constitutional: Denies fever(s) and Denies headache(s) ENT: Denies headache(s) Cardiovascular: Cardiovascular: Denies chest pain, Denies diaphoresis, Denies palpitations and Denies dyspnea Respiratory: Respiratory: Denies dyspnea Gastrointestinal: Gastrointestinal: Denies abdominal pain, Denies constipation, Denies nausea and Denies vomiting Genitourinary: Genitourinary: Denies dysuria and Reports nocturia Musculoskeletal: Musculoskeletal: Reports arthralgias (Right Knee ) and Reports joint swelling (Right Knee ) Neurologic: Denies headache(s) Endocrine: Endocrine: Denies palpitations Exam Const: General: comfortable and no acute distress Resp: Effort & Inspection: normal respiratory effort Cardio: Rate: regular rate Rhythm: regular rhythm GI: GI Palp: Yes Soft to palpation, No Tenderness to palpation present (GI) and No Guarding due to palpation present (GI) Skin: General skin exam: wounds noted Wounds: wounds noted Other: Incision c/d/i. No surrounding redness/warmth. No hematoma. Mild ecchymosis. No wound dehiscence Neuro: Cognition (Neuro): normal cognition Other: NV intact aside from block. Moves toes. Sensation intact to light touch. +ankle dorsiflexion/plantarflexion. Extrem: Right lower extremity: normal to inspection, knee Details: tenderness (diffuse, mild ) Location: of the patella, swelling (diffuse, consistent with surgical intervention ), abnormal ROM Details: pain with active ROM during, pain with passive ROM during and with range as follows (limited due to recent surgical intervention ); able to extend lower leg actively and ecchymosis (mild ), lower leg (Negative Azam's Sign ) Details: normal to inspection; no erythema and no tenderness, ankle (+ankle dorsiflexion/plantarflexion ) Details: normal to inspection, no edema and normal ROM; no tenderness, no swelling and no ecchymosis and foot Details: normal capillary refill, normal to inspection, vascular exam Details: dorsalis pedis pulse present and motor-sensory exam Details: light-touch normal; no tenderness Left lower extremity: normal to inspection Psych: Mental Status: mental status grossly normal Objective Data Vital Signs Vital Signs: Vital Signs - 24 hr 08/06/25 10:20 08/06/25 14:20 08/06/25 18:20 Temperature 36.3 C L 36.1 C L 36.2 C L Pulse Rate 73 89 79 Respiratory Rate 16 16 18 Blood Pressure 128/66 112/60 138/61 Pulse Oximetry 99 97 98 Oxygen Delivery Fraction of Inspired Oxygen 08/06/25 20:27 08/06/25 20:45 08/06/25 22:20 Temperature 36.2 C L Pulse Rate 78 73 Respiratory Rate 17 Blood Pressure 122/64 Pulse Oximetry 98 98 Oxygen Delivery Room Air Room Air Fraction of Inspired Oxygen 08/06/25 22:20 08/07/25 01:20 08/07/25 02:11 Temperature 36.5 C Pulse Rate 73 66 Respiratory Rate 18 Blood Pressure 110/70 Pulse Oximetry 98 97 Oxygen Delivery Room Air Room Air Fraction of Inspired Oxygen 21 08/07/25 04:30 Temperature 36.0 C L Pulse Rate 62 Respiratory Rate 18 Blood Pressure 110/62 Pulse Oximetry 98 Oxygen Delivery Fraction of Inspired Oxygen Intake/Output Intake/Output: Intake & Output 08/04/25 08/05/25 08/06/25 08/07/25 23:59 23:59 23:59 23:59 Intake Total 550 1816 1000 Balance 550 1816 1000 Meds/Results Medications: Active Medications Generic Name Dose Route Start Last Admin Trade Name Freq PRN Reason Stop Dose Admin Acetaminophen 500 mg 08/05/25 16:35 Acetaminophen 500 Mg Tablet PO Q6H PRN Pain Rated 1-3 Amlodipine Besylate 10 mg 08/06/25 09:00 08/07/25 09:00 Amlodipine Besylate 10 Mg Tablet PO 10 mg DAILY TAMMY Administration Aspirin 325 mg 08/05/25 21:00 08/07/25 09:00 Aspirin 325 Mg Enteric Tablet PO 325 mg Q12HR TAMMY Administration Celecoxib 200 mg 08/05/25 17:00 08/07/25 09:00 Celecoxib 200 Mg Capsule PO 200 mg BIDWM TAMMY Administration Cyclobenzaprine HCl 10 mg 08/05/25 21:00 08/06/25 20:27 Cyclobenzaprine Hcl 10 Mg Tablet PO 10 mg HS TAMMY Administration Diazepam 5 mg 08/05/25 16:35 Diazepam (*Crx) 5 Mg Tablet PO Q8H PRN Spasms Diphenhydramine HCl 25 mg 08/05/25 16:35 Diphenhydramine Hcl Inj 50 Mg/Ml Vial IV PUSH Q6H PRN Itching Duloxetine HCl 30 mg 08/06/25 09:00 08/07/25 09:00 Duloxetine Hcl 30 Mg Capsule.Dr PO 30 mg DAILY TAMMY Administration Famotidine 20 mg 08/05/25 21:00 08/07/25 09:00 Famotidine 20 Mg Tablet PO 20 mg Q12HR TAMMY Administration Ferrous Sulfate 325 mg 08/06/25 09:00 08/07/25 09:00 Ferrous Sulfate 325 Mg Tablet PO 325 mg DAILY TAMMY Administration Hydromorphone HCl 1 mg 08/05/25 16:35 Hydromorphone Hcl Inj (*Crx) 1 Mg/Ml Syr IV PUSH Q2H PRN Breakthrough Pain Rated 7-10 or NPO Hydromorphone HCl 0.5 mg 08/05/25 16:35 Hydromorphone Hcl Inj (*Crx) 1 Mg/Ml Syr IV PUSH Q2H PRN Breakthrough Pain Rated 4-6 or NPO Ibuprofen 800 mg in 200 mls @ 400 mls/hr 08/05/25 16:35 Caldolor 800 Mg/200 Ml IVPB Q6H PRN Breakthrough Pain Rated 1-3 or NPO Sodium Chloride 1,000 mls @ 125 mls/hr 08/06/25 15:00 08/07/25 01:56 Normal Saline Iv IV CONT 125 mls/hr .Q8H TAMMY Administration Levothyroxine Sodium 100 mcg 08/06/25 06:30 08/07/25 06:06 Levothyroxine Sodium 100 Mcg Tablet PO 100 mcg DAILY@0630 TAMMY Administration Lisinopril 40 mg 08/06/25 09:00 08/07/25 09:00 Lisinopril 20 Mg Tablet PO 40 mg DAILY TAMMY Administration Metformin HCl 1,000 mg 08/05/25 17:00 08/07/25 08:59 Metformin Hcl Xr 500 Mg Tab.Sr.24h PO 1,000 mg BID TAMMY Administration Miscellaneous Information 1 each 08/05/25 00:01 Sulfamethoxazole/Trimethoprim 800/160 Mg Ds Tablet Clarify Stop Date As Started As A Home XX 09/04/25 00:00 CLARIFY TAMMY Naloxone HCl 0.1 mg 08/05/25 16:35 Naloxone Hcl 0.4 Mg/Ml Vial IV PUSH Q2M PRN Opiate Reversal Ondansetron HCl 4 mg 08/05/25 16:35 Ondansetron Inj 4 Mg/2 Ml Vial IV PUSH Q4H PRN Nausea And Vomiting Oxycodone/Acetaminophen 1 tablet 08/05/25 16:35 08/06/25 12:54 Oxycodone/Acetaminophen (*Crx) 5-325 Mg Tablet PO 1 tablet Q4H PRN Administration Pain Rated 4-6 Oxycodone/Acetaminophen 1 tab 08/05/25 16:35 08/06/25 22:15 Oxycodone/Acetaminophen (*Crx) 10-325 Mg Tablet PO 1 tab Q6H PRN Administration Pain Rated 7-10 Polyethylene Glycol 17 gm 08/06/25 09:00 08/07/25 09:00 Polyethylene Glycol 3350 17 Gm Powd.Pack PO 17 gm QAM TAMMY Administration Ropinirole HCl 0.25 mg 08/05/25 21:00 08/07/25 09:00 Ropinirole Hcl 0.25 Mg Tablet PO 0.25 mg Q12HR TAMMY Administration Rosuvastatin Calcium 20 mg 08/05/25 21:00 08/06/25 20:27 Rosuvastatin 20 Mg Tablet PO 20 mg QHS TAMMY Administration Senna/Docusate Sodium 2 tab 08/05/25 17:00 08/07/25 08:59 Senna/Docusate Sodium Tablet PO 2 tab BID TAMMY Administration Trimethoprim/Sulfamethoxazole 1 tab 08/05/25 21:00 08/07/25 08:59 Sulfamethoxazole/Trimethoprim 800/160 Mg Ds Tablet PO 1 tab Q12HR TAMMY Administration Radiology Results: ITS Impressions Knee X-Ray 08/05/25 15:55 Impression: No acute fracture or malalignment. Labs Labs: Laboratory Results - last 24 hr 08/06/25 08/07/25 13:56 05:13 WBC 30.3 H RBC 3.89 L Hgb 11.9 L Hct 36.6 L MCV 94.1 MCH 30.6 MCHC 32.5 RDW 15.2 H Plt Count 331 MPV 10.4 Sodium 135 L 136 L Potassium 5.3 H 5.6 H Chloride 105 107 Carbon Dioxide 18 L 23 Anion Gap 12 6 BUN 33 H 34 H Creatinine 1.81 H 1.58 H Estim Creat Clear Calc 48 55 Estimated GFR 37 L 43 L Glucose 94 110 Calcium 8.5 8.4 Quality VTE Prophylaxis VTE prophylaxis: pharmacologic ordered
[2025-08-07 09:33] LABS: Hematocrit 34.8 % (42.0-52.0); Hemoglobin 10.9 g/dL (14.0-18.0); Immature Granulocyte Percent A 2.3 % (0-0.5); Lymphocytes Absolute Auto 1.54 K/mm3 (0.9-3.2); Mean Corpuscular HGB Conc 31.3 g/dl (32-36); Mean Corpuscular Hemoglobin 30.4 pg (26-34); Mean Corpuscular Volume 97.2 fl (80-100); Nucleated Red Blood Cells Absolute Auto 0.000 K/mm3 (0.0-0.012); Nucleated Red Blood Cells Perc 0.0 % (0.0-0.2); Platelet Count Result 274 k/mm3 (150-375); Red Blood Count 3.58 M/mm3 (4.6-6.20); White Blood Count 17.5 K/mm3 (4.5-10.0)
[2025-08-07] MEDS: oxyCODONE/ACETAMINOPHEN (*CRX) 10-325 MG TABLET 1 TAB PO ×3 (10:34→22:15)
[2025-08-07 14:00] VITALS: BP 143/68; PULSE 85; RESP 14; TEMP 35.9; O2SAT 99
[2025-08-07 14:19] LABS: Potassium 5.3 mmol/L (3.4-5.0)
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
[2025-08-07] MEDS: CYCLOBENZAPRINE HCL 10 MG TABLET PO (20:55)
[2025-08-07] MEDS: ROSUVASTATIN 20 MG TABLET PO (20:55)
[2025-08-08] MEDS: SODIUM CHLORIDE 0.9% IV 1,000 ML 125 ML IV CONT (02:30)
[2025-08-08] MEDS: oxyCODONE/ACETAMINOPHEN (*CRX) 10-325 MG TABLET 1 TAB PO ×2 (05:38→17:35)
[2025-08-08] MEDS: LEVOTHYROXINE SODIUM 100 MCG TABLET PO (05:38)
[2025-08-08 07:11] LABS: Hematocrit 30.1 % (42.0-52.0); Hemoglobin 9.4 g/dL (14.0-18.0); Immature Granulocyte Percent A 5.6 % (0-0.5); Lymphocytes Absolute Auto 1.70 K/mm3 (0.9-3.2); Mean Corpuscular HGB Conc 31.2 g/dl (32-36); Mean Corpuscular Hemoglobin 30.1 pg (26-34); Mean Corpuscular Volume 96.5 fl (80-100); Nucleated Red Blood Cells Absolute Auto 0.000 K/mm3 (0.0-0.012); Nucleated Red Blood Cells Perc 0.0 % (0.0-0.2); Platelet Count Result 239 k/mm3 (150-375); Red Blood Count 3.12 M/mm3 (4.6-6.20); White Blood Count 10.6 K/mm3 (4.5-10.0)
[2025-08-08 07:31] LABS: Alanine Aminotransferase 14 U/L (6-50); Albumin Level 2.9 g/dL (3.5-5.1); Alkaline Phosphatase 62 U/L (38-126); Anion Gap 5 mmol/L (4-12); Aspartate Amino Transferase 32 U/L (17-59); Bilirubin,Total 0.4 mg/dL (0.2-1.3); Blood Urea Nitrogen 19 mg/dL (9-20); Calcium 7.2 mg/dL (8.4-10.2); Carbon Dioxide 21 mmol/L (22-30); Chloride 111 mmol/L (98-107); Estimated CRCL calculation 85 ml/min; Estimated Glomerular Filt Rate > 60; Glucose 98 mg/dL (65-110); Magnesium 1.2 mg/dL (1.6-2.3); Potassium 4.5 mmol/L (3.4-5.0); Sodium 137 mmol/L (137-145); Total Protein 5.3 g/dL (6.3-8.2)
[2025-08-08] MEDS: FERROUS SULFATE 325 MG TABLET PO (09:54)
[2025-08-08] MEDS: MAGNESIUM OXIDE 400 MG TABLET PO (09:54)
[2025-08-08] MEDS: SENNA/DOCUSATE SODIUM TABLET 2 TAB PO ×2 (09:54→17:31)
[2025-08-08] MEDS: SULFAMETHOXAZOLE/TRIMETHOPRIM 800/160 MG DS TABLET 1 TAB PO (09:54)
[2025-08-08] MEDS: FAMOTIDINE 20 MG TABLET PO (09:54)
[2025-08-08] MEDS: CELECOXIB 200 MG CAPSULE PO ×2 (09:54→17:31)
[2025-08-08] MEDS: metFORMIN HCL XR 500 MG TAB.SR.24H 1000 MG PO ×2 (09:54→17:35)
[2025-08-08] MEDS: ASPIRIN 325 MG ENTERIC TABLET PO (09:55)
[2025-08-08 11:18] VITALS: BP 117/63; PULSE 77; RESP 16; TEMP 36.6; O2SAT 99
--- NOTE | 2025-08-08 11:43 | PM.PNORT ---
Progress Note: A&P Assessment and Plan (1) S/P total knee arthroplasty: Qualifiers: Laterality: right Qualified Code(s): Z96.651 - Presence of right artificial knee joint Code(s): Z96.659 - Presence of unspecified artificial knee joint Status: Acute Assessment and Plan: POD #3: Right TKA Continue PT/OT. WBAT. Walker. HIGH FALL RISK. Continue pain control. Ice Knee. Protect skin. DVT prophylaxis with Aspirin. SCDs. Incentive Spirometry Use reviewed. Monitor Dressing. Change prior to discharge. Bowel Regimen. Dispo: Home with Home Health today pending improvement in electrolytes. (2) Hyperkalemia: Code(s): E87.5 - Hyperkalemia Status: Acute Assessment and Plan: Resolved today. 4.9. Recheck with lab on Monday. (3) Low magnesium level: Code(s): R79.0 - Abnormal level of blood mineral Status: Acute Assessment and Plan: Plan for repletion today per hospitalist. Recheck CMP post repletion. Recheck with HH lab on Monday. Plan Reviewed history, exam, radiographs and current labs with attending MD and covering surgeon, Dr. Light, who agrees with current plan as indicated above. No further recommendations from Dr. Light at this time. Time Spent With Patient Time with patient: 15 - 25 minutes Subjective Subjective Date/Time Seen: 08/08/25 11:43 Post Op day: 3 Interval history: POD #3: Right TKA Patient doing well. Pain well controlled. Electrolyte abnormalities requiring prolonged hospitalization. Hospitalist following. Review of Systems Review of Systems: All systems reviewed & are unremarkable except as noted in HPI and below Constitutional: Constitutional: Denies fever(s) and Denies headache(s) ENT: Denies headache(s) Cardiovascular: Cardiovascular: Denies chest pain, Denies diaphoresis, Denies palpitations and Denies dyspnea Respiratory: Respiratory: Denies dyspnea Gastrointestinal: Gastrointestinal: Denies abdominal pain, Denies constipation, Denies nausea and Denies vomiting Genitourinary: Genitourinary: Denies dysuria and Reports nocturia Musculoskeletal: Musculoskeletal: Reports arthralgias (Right Knee ) and Reports joint swelling (Right Knee ) Neurologic: Denies headache(s) Endocrine: Endocrine: Denies palpitations Objective Data Vital Signs Vital Signs: Vital Signs - 24 hr 08/07/25 14:00 08/08/25 11:18 Temperature 35.9 C L 36.6 C Pulse Rate 85 77 Respiratory Rate 14 16 Blood Pressure 143/68 H 117/63 Pulse Oximetry 99 99 Intake/Output Intake/Output: Intake & Output 08/05/25 08/06/25 08/07/25 08/08/25 23:59 23:59 23:59 23:59 Intake Total 550 1816 3016 1360 Balance 550 1816 3016 1360 Meds/Results Medications: Active Medications Generic Name Dose Route Start Last Admin Trade Name Freq PRN Reason Stop Dose Admin Acetaminophen 500 mg 08/05/25 16:35 Acetaminophen 500 Mg Tablet PO Q6H PRN Pain Rated 1-3 Amlodipine Besylate 10 mg 08/06/25 09:00 08/08/25 09:55 Amlodipine Besylate 10 Mg Tablet PO 10 mg DAILY TAMMY Administration Aspirin 325 mg 08/05/25 21:00 08/08/25 09:55 Aspirin 325 Mg Enteric Tablet PO 325 mg Q12HR TAMMY Administration Celecoxib 200 mg 08/05/25 17:00 08/08/25 09:54 Celecoxib 200 Mg Capsule PO 200 mg BIDWM TAMMY Administration Cyclobenzaprine HCl 10 mg 08/05/25 21:00 08/07/25 20:55 Cyclobenzaprine Hcl 10 Mg Tablet PO 10 mg HS TAMMY Administration Diazepam 5 mg 08/05/25 16:35 Diazepam (*Crx) 5 Mg Tablet PO Q8H PRN Spasms Diphenhydramine HCl 25 mg 08/05/25 16:35 Diphenhydramine Hcl Inj 50 Mg/Ml Vial IV PUSH Q6H PRN Itching Duloxetine HCl 30 mg 08/06/25 09:00 08/08/25 09:55 Duloxetine Hcl 30 Mg Capsule.Dr PO 30 mg DAILY TAMMY Administration Famotidine 20 mg 08/05/25 21:00 08/08/25 09:54 Famotidine 20 Mg Tablet PO 20 mg Q12HR TAMMY Administration Ferrous Sulfate 325 mg 08/06/25 09:00 08/08/25 09:54 Ferrous Sulfate 325 Mg Tablet PO 325 mg DAILY TAMMY Administration Hydromorphone HCl 1 mg 08/05/25 16:35 Hydromorphone Hcl Inj (*Crx) 1 Mg/Ml Syr IV PUSH Q2H PRN Breakthrough Pain Rated 7-10 or NPO Hydromorphone HCl 0.5 mg 08/05/25 16:35 Hydromorphone Hcl Inj (*Crx) 1 Mg/Ml Syr IV PUSH Q2H PRN Breakthrough Pain Rated 4-6 or NPO Ibuprofen 800 mg in 200 mls @ 400 mls/hr 08/05/25 16:35 Caldolor 800 Mg/200 Ml IVPB Q6H PRN Breakthrough Pain Rated 1-3 or NPO Sodium Chloride 1,000 mls @ 125 mls/hr 08/06/25 15:00 08/08/25 07:38 Normal Saline Iv IV CONT Not Given .Q8H TAMMY Magnesium Sulfate/Dextrose 3 gm in 100 mls @ 33.333 mls/hr 08/08/25 10:30 Magnesium Sulfate 3gm/[id number] IVPB 08/08/25 13:29 ONCE ONE Levothyroxine Sodium 100 mcg 08/06/25 06:30 08/08/25 05:38 Levothyroxine Sodium 100 Mcg Tablet PO 100 mcg DAILY@0630 TAMMY Administration Lisinopril 40 mg 08/06/25 09:00 08/08/25 09:54 Lisinopril 20 Mg Tablet PO 40 mg DAILY TAMMY Administration Magnesium Oxide 400 mg 08/08/25 09:00 08/08/25 09:54 Magnesium Oxide 400 Mg Tablet PO 400 mg QAM TAMMY Administration Metformin HCl 1,000 mg 08/05/25 17:00 08/08/25 09:54 Metformin Hcl Xr 500 Mg Tab.Sr.24h PO 1,000 mg BID TAMMY Administration Miscellaneous Information 1 each 08/05/25 00:01 Sulfamethoxazole/Trimethoprim 800/160 Mg Ds Tablet Clarify Stop Date As Started As A Home XX 09/04/25 00:00 CLARIFY TAMMY Naloxone HCl 0.1 mg 08/05/25 16:35 Naloxone Hcl 0.4 Mg/Ml Vial IV PUSH Q2M PRN Opiate Reversal Ondansetron HCl 4 mg 08/05/25 16:35 Ondansetron Inj 4 Mg/2 Ml Vial IV PUSH Q4H PRN Nausea And Vomiting Oxycodone/Acetaminophen 1 tablet 08/05/25 16:35 08/06/25 12:54 Oxycodone/Acetaminophen (*Crx) 5-325 Mg Tablet PO 1 tablet Q4H PRN Administration Pain Rated 4-6 Oxycodone/Acetaminophen 1 tab 08/05/25 16:35 08/08/25 05:38 Oxycodone/Acetaminophen (*Crx) 10-325 Mg Tablet PO 1 tab Q6H PRN Administration Pain Rated 7-10 Polyethylene Glycol 17 gm 08/06/25 09:00 08/08/25 09:55 Polyethylene Glycol 3350 17 Gm Powd.Pack PO 17 gm QAM TAMMY Administration Ropinirole HCl 0.25 mg 08/05/25 21:00 08/08/25 09:55 Ropinirole Hcl 0.25 Mg Tablet PO 0.25 mg Q12HR TAMMY Administration Rosuvastatin Calcium 20 mg 08/05/25 21:00 08/07/25 20:55 Rosuvastatin 20 Mg Tablet PO 20 mg QHS TAMMY Administration Senna/Docusate Sodium 2 tab 08/05/25 17:00 08/08/25 09:54 Senna/Docusate Sodium Tablet PO 2 tab BID TAMMY Administration Trimethoprim/Sulfamethoxazole 1 tab 08/05/25 21:00 08/08/25 09:54 Sulfamethoxazole/Trimethoprim 800/160 Mg Ds Tablet PO 1 tab Q12HR TAMMY Administration Radiology Results: ITS Impressions Knee X-Ray 08/05/25 15:55 Impression: No acute fracture or malalignment. Labs Labs: Laboratory Results - last 24 hr 08/07/25 08/08/25 14:04 06:11 WBC 10.6 H RBC 3.12 L Hgb 9.4 L Hct 30.1 L MCV 96.5 MCH 30.1 MCHC 31.2 L RDW 15.3 H Plt Count 239 MPV 10.8 H Immature Gran % (Auto) 5.6 H Neut % (Auto) 66.9 Lymph % (Auto) 16.0 L Anderson % (Auto) 6.7 Eos % (Auto) 2.3 Baso % (Auto) 2.5 H Lymph # (Auto) 1.70 Anderson # (Auto) 0.7 H Eos # (Auto) 0.2 Baso # (Auto) 0.3 H Abs Immat Gran (auto) 0.59 H Absolute Neuts (auto) 7.1 H Absolute Nucleated RBC 0.000 Nucleated RBC % 0.0 Sodium 137 Potassium 5.3 H 4.5 Chloride 111 H Carbon Dioxide 21 L Anion Gap 5 BUN 19 D Creatinine 1.00 Estim Creat Clear Calc 85 Estimated GFR > 60 Glucose 98 Calcium 7.2 L Magnesium 1.2 L Total Bilirubin 0.4 AST 32 ALT 14 Alkaline Phosphatase 62 Total Protein 5.3 L Albumin 2.9 L
[2025-08-08] MEDS: MAGNESIUM SULFATE 3GM/D5W100ML 3 GM/100 ML BAG IVPB (11:49)
[2025-08-08 16:44] LABS: Magnesium 1.8 mg/dL (1.6-2.3)
--- NOTE | 2025-08-08 17:04 | PC.NURSE ---
RN spoke with surgeon Light via telephone. Okay to continue magnesium at discharge.
--- NOTE | 2025-08-09 08:37 | PM.IMPN ---
Progress Note: A&P Assessment and Plan (1) S/P total knee arthroplasty: Qualifiers: Laterality: right Qualified Code(s): Z96.651 - Presence of right artificial knee joint Code(s): Z96.659 - Presence of unspecified artificial knee joint Status: Acute (2) Essential (primary) hypertension: Code(s): I10 - Essential (primary) hypertension Status: Acute (3) Mixed hyperlipidemia: Code(s): E78.2 - Mixed hyperlipidemia Status: Acute (4) Type 2 diabetes mellitus without complication, without long-term current use of insulin: Code(s): E11.9 - Type 2 diabetes mellitus without complications Status: Acute Plan Teo Martinez is a 70 year old male S/P total knee arthroplasty POD#2 patient is doing well interms of his right knee arthroplasty however serum potassium was elevated, upon arrival patient K was 6.4, patient has no symptoms of CP or dizziness, he is not on any medication that will increase his potassium, he does have elevated Scr creatinine, 2.09, patient is hydrated and is given Lokelma and K potassium is trending down to 5.6 as well his Scr to 1.58. gave Kayexlate and this morning patient potassium in 4.5, however today his magnesium is low to 1.2, patient was given 3g of magnesium, repeat mag is 1.8 and patient is clinically stable, patient is seen by by his ortho, will be discharged today home. Subjective Date/time seen: 08/09/25 08:37 Interval history: Teo Martinez is a 70 year old male S/P total knee arthroplasty POD#2 patient is doing well interms of his right knee arthroplasty however serum potassium was elevated, upon arrival patient K was 6.4, patient has no symptoms of CP or dizziness, he is not on any medication that will increase his potassium, he does have elevated Scr creatinine, 2.09, patient is hydrated and is given Lokelma and K potassium is trending down to 5.6 as well his Scr to 1.58. gave Kayexlate and this morning patient potassium in 4.5, however today his magnesium is low to 1.2, patient was given 3g of magnesium, repeat mag is 1.8 and patient is clinically stable, patient is seen by by his ortho, will be discharged today home. Review of Systems Review of Systems: All systems reviewed & are unremarkable except as noted in HPI and below Exam Narrative: Patient is comfortable, NAD HEENT: eyes are clear and none icteric LUNGS:CTA HEART: RR S1S2 ABD: BS+, Soft and nontender Lower extremities: no edema SKIN: nonjaundiced Neuro: grossly intact. Objective Data Vital Signs Vital Signs: Vital Signs - 24 hr 08/08/25 11:18 Temperature 36.6 C Pulse Rate 77 Respiratory Rate 16 Blood Pressure 117/63 Pulse Oximetry 99 Intake/Output Intake/Output: Intake & Output 08/06/25 08/07/25 08/08/25 08/09/25 23:59 23:59 23:59 23:59 Intake Total 1816 3016 1600 Balance 1816 3016 1600 Meds/Results Radiology Results: ITS Impressions Knee X-Ray 08/05/25 15:55 Impression: No acute fracture or malalignment. Labs Labs: Laboratory Results - last 24 hr 08/08/25 16:20 Magnesium 1.8 Quality VTE Prophylaxis VTE prophylaxis: pharmacologic ordered
--- NOTE | 2025-09-08 15:54 | DS_ITS ---
This report was moved to the correct visit on 09/10/2025. The original report was signed by Oscar Light MD on 09/08/25 [id number]. DS: Admitting Diagnosis Discharge Date 08/09/25 Admitting Diagnosis RIGHT KNEE DJD DS: Discharge Diagnosis Discharge Diagnosis (1) Right knee DJD: Code(s): M17.11 - Unilateral primary osteoarthritis, right knee Status: Acute DS: Summary Hospital Course Reason for hospitalization: RIGHT TKA Hospital Course: PATIENT WAS ADMITTED S/P TOTAL KNEE ARTHROPLASTY FOR POSTOPERATIVE MEDICAL MANAGEMENT, PAIN CONTROL AND MOBILIZATION WITH PHYSICAL AND OCCUPATIONAL THERAPY. THE PATIENT PROGRESSED WELL WITH PT/OT. HE DID HAVE PROBLEMS WITH HIS ELECTROLYTES MAINLY MAGNESIUM LEVELS. INTERNAL MEDICINE WAS CONSULTED AND THE PATIENT RECEIVED SUPPLEMENTS TO TREAT HIS ELECTROLYTE IMBALANCE AND VITALS REMAINED STABLE AND PAIN WELL CONTROLLED. THE PATIENT HAS BEEN CLEARED TO BE DISCHARGED TO HOME. FOLLOW UP APPOINTMENT SCHEDULED. DISCHARGE INSTRUCTIONS DISCUSSED AT LENGTH WITH THE PATIENT. MEDICATIONS REVIEWED. Status at Discharge Cognitive/behavioral status at discharge: STABLE Time Spent with Patient Time attestation: Total time spent providing and/or coordinating discharge services: DS: Data Procedures/Treatments: RIGHT TKA Discharge Plan Discharge Patient Disposition: Home Discharge Instructions: OSCAR LIGHT [facility] [address] [address] [address] [place] [address] POST OPERATIVE DISCHARGE INSTRUCTIONS FOLLOWING TOTAL KNEE REPLACEMENT SURGERY ? Your dressing will be changed prior to your discharge. You will be sent home with one additional dressing to be changed on post op day 7 by the home health RN. Your mary jo will be removed on the 14th day after surgery and steri-strips will be placed. Please practice good hand hygiene and do not touch your incision in order to prevent infection. ? You may shower with your dressing but do not submerge in a bath tub. ? Do not drive or operate machinery until you are released by Dr. Light. ? Do not walk without a walker for any reason until you are released by Dr. Light. ? Continue to use your ice machine. Please use a towel or pillow case to protect your skin before applying your ice machine. ? Do NOT place a pillow under your knee. You may use a pillow from the calf down if needed. This will prevent a flexion contracture postoperatively. ? You may begin use of your CPM machine at home if you have been given one pre- operatively. DO NOT USE WHILE YOU ARE SLEEPING. ? Your first post op appointment was sent to you via mail preoperatively. If you have any questions or are unable to make your appointment, please contact our office for scheduling questions. ? Your medications have been sent to your pharmacy. You have been sent home with pain medication. We have also sent you with a stool softener as narcotics can cause constipation. Please keep this in mind during your postoperative recovery. If you are not experiencing regular bowel movements, please contact our office for further instruction. ? Please contact our office with any questions/concerns regarding your knee at [phone]. Patient Language: Samoan Follow-up/Referrals: Oscar Light MD [Physician, Orthopedics] Discharge Medications: Continued (DME) pen needle, diabetic [Novofine 32] 32 gauge x 1/4 needle See Rx Instructions .ROUTE .MEDSUPPLY Qty: 50 0RF Rx Instructions: use weekly with Ozempic (DME) OneTouch Ultra Blue Test Strip Strip See Rx Instructions .ROUTE .MEDSUPPLY Qty: 100 3RF Rx Instructions: checking blood sugar once daily (DME) lancets [OneTouch UltraSoft Lancets] Mis See Rx Instructions .ROUTE .MEDSUPPLY Qty: 100 3RF Rx Instructions: Checking Blood Sugar once daily lisinopril 40 mg tablet 40 mg PO DAILY Qty: 90 3RF amlodipine 10 mg tablet 10 mg PO DAILY aspirin [Jaya Low Dose Aspirin] 81 mg Tablet,Delayed Release (Dr/Ec) 81 mg PO HS sennosides [Senokot] 8.6 mg tablet 8.6 mg PO DAILY cholecalciferol (vitamin D3) 1,250 mcg (50,000 unit) capsule 1,250 mcg PO WEEKLY Patient Comments: TAKES ON MONDAYS vitamin E 268 mg (400 unit) capsule 268 mg PO DAILY oxycodone-acetaminophen 5-325 mg Tablet 1 tablet PO Q4-6H PRN (Reason: pain) Qty: 30 0RF aspirin 325 mg Tablet,Delayed Release (Dr/Ec) 325 mg PO Q12HR 28 Days Qty: 56 0RF magnesium oxide 400 mg (241.3 mg magnesium) Tablet 400 mg PO QAM 30 Days Qty: 30 0RF rosuvastatin 20 mg tablet 20 mg PO QHS meloxicam 7.5 mg tablet 7.5 mg PO BID tamsulosin 0.4 mg capsule 0.4 mg PO DAILY Qty: 12 0RF Rx Instructions: start 05/19 (received first dose in ED 05/18 calcium carbonate 600 mg calcium (1,500 mg) tablet 1,200 mg PO QAM Patient Comments: TAKES 600MG IN AM multivitamin Tablet 1 tablet PO QAM cyanocobalamin (vitamin B-12) 1,000 mcg capsule 1,000 mcg PO QAM duloxetine [Cymbalta] 30 mg capsule,delayed release(DR/EC) 30 mg PO DAILY Qty: 90 3RF allopurinol 300 mg tablet 300 mg PO QAM Qty: 90 3RF metformin 500 mg tablet extended release 24 hr 1,000 mg PO BID Qty: 360 3RF cholecalciferol (vitamin D3) 1,250 mcg (50,000 unit) capsule 50,000 unit PO WEEKLY Qty: 12 3RF Patient Comments: TAKES ON MONDAY levothyroxine [Synthroid] 100 mcg tablet 100 mcg PO . q.a.m. Qty: 90 3RF pantoprazole 40 mg tablet,delayed release (DR/EC) 40 mg PO QAM Qty: 90 3RF ropinirole 0.25 mg tablet 0.25 mg PO BID Qty: 60 11RF triamcinolone acetonide 0.5 % cream 1 applic topical BID PRN (Reason: Dry Skin) Qty: 60 3RF Rx Instructions: apply to rash on extremities and trunk twice daily until clear but no longer than 2 weeks at a time ferrous sulfate 325 mg (65 mg iron) tablet,delayed release (DR/EC) 325 mg PO DAILY Qty: 90 3RF cyclobenzaprine 10 mg tablet 10 mg PO HS PRN (Reason: muscle spasm) Qty: 90 5RF Please be advised this is a medical document. It is intended for [id number] communication. It is written in medical language and may contain unfamiliar abbreviations or verbiage. Medical documents are intended to carry relevant information, facts as evident, and the clinical opinion of the practitioner at the time of the encounter. This report may have been done utilizing a voice recognition system. Attempts have been made to correct errors. However, there may be uncorrected grammatical, spelling, and recognition errors present. The file time of this note does not necessarily represent the time the patient was seen. Report Initialized date/time: Oscar Light MD 09/08/25 / 1552 Electronically signed by: Oscar Light MD 09/08/25 [id number]
--- NOTE | 2025-09-09 08:32 | PM.DS ---
DS: Admitting Diagnosis Discharge Date 08/08/25 DS: Summary Time Spent with Patient Time attestation: Total time spent providing and/or coordinating discharge services: Discharge Plan Discharge Attending physician on discharge: Oscar Light Consulting providers: Christos Falcon; Mukul Burns; Criss Melendez; Joaquín Thomson Discharging Clinician: Criss Melendez Anticipated Discharge Date/Time: 08/08/25 15:00 Patient Disposition: Home with Home Health Service Activity: may shower, no driving and follow weight bearing status Diet: as tolerated Wound Care Instructions: follow printed instructions Discharge Instructions: Per Care Coordination: Patient to have [facility] for RN/PT/OT services. Office will call patient for initial visit. Office ph# [phone]. Post Op Total Knee Replacement Instructions Dr. Oscar Light [phone] Your dressing will be changed prior to your discharge. You will be sent home with one additional dressing to be changed on post op day 7 by the home health RN. Your mary jo will be removed on the 14th day after surgery and steri-strips will be placed. Please practice good hand hygiene and do not touch your incision in order to prevent infection. You may shower with your dressing but do not submerge in a bath tub. Do not drive or operate machinery until you are released by Dr. Light. Do not walk without a walker for any reason until you are released by Dr. Light. Continue to use your ice machine. Please use a towel or pillow case to protect your skin before applying your ice machine. Do NOT place a pillow under your knee. You may use a pillow from the calf down if needed. This will prevent a flexion contracture postoperatively. CPM: You may begin use of your CPM machine at home if you have been given one pre-operatively. DO NOT USE WHILE YOU ARE SLEEPING. ROMTech: If you were given a ROMTech Portable Connect System preoperatively, you are to begin use on the day you arrive home postoperatively. Our goal is for you to use the machine 5 times per day. The sessions are very short in the beginning and will progress as you progress. We are able to monitor your progress from afar as well as your pain and other reported symptoms. If you have difficulties with the machine, please call . NOTE: Please attempt to use the machine even when in pain as this will cook helper vegetable your therapy with very gentle motion. Your first post op appointment was sent to you via mail preoperatively. If you have any questions or are unable to make your appointment, please contact our office for scheduling questions. Your medications have been sent to your pharmacy. You have been sent home with pain medication. Please cotton picking machine operator an over the counter stool softener to prevent constipation due to narcotic use. Please keep this in mind during your postoperative recovery. If you are not experiencing regular bowel movements, please contact our office for further instruction. Please contact our office with any questions/concerns regarding your knee at [phone]. Patient Instructions: Antibiotic Form Patient Language: Italian Stand Alone Forms: General Discharge Information Follow-up/Referrals: Oscar Light MD [Physician, Orthopedics] - Keep Reg. Scheduled Appt. Discharge Medications: New oxycodone-acetaminophen 5-325 mg Tablet 1 tablet PO Q4-6H PRN (Reason: pain) Qty: 30 0RF aspirin 325 mg Tablet,Delayed Release (Dr/Ec) 325 mg PO Q12HR 28 Days Qty: 56 0RF magnesium oxide 400 mg (241.3 mg magnesium) Tablet 400 mg PO QAM 30 Days Qty: 30 0RF Continued (DME) pen needle, diabetic [Novofine 32] 32 gauge x 1/4 needle See Rx Instructions .ROUTE .MEDSUPPLY Qty: 50 0RF Rx Instructions: use weekly with Ozempic (DME) OneTouch Ultra Blue Test Strip Strip See Rx Instructions .ROUTE .MEDSUPPLY Qty: 100 3RF Rx Instructions: checking blood sugar once daily (DME) lancets [OneTouch UltraSoft Lancets] [facility] See Rx Instructions .ROUTE .MEDSUPPLY Qty: 100 3RF Rx Instructions: Checking Blood Sugar once daily lisinopril 40 mg tablet 40 mg PO DAILY Qty: 90 3RF amlodipine 10 mg tablet 10 mg PO DAILY sennosides [Senokot] 8.6 mg tablet 8.6 mg PO DAILY cholecalciferol (vitamin D3) 1,250 mcg (50,000 unit) capsule 1,250 mcg PO WEEKLY Patient Comments: TAKES ON MONDAYS vitamin E 268 mg (400 unit) capsule 268 mg PO DAILY rosuvastatin 20 mg tablet 20 mg PO QHS meloxicam 7.5 mg tablet 7.5 mg PO BID tamsulosin 0.4 mg capsule 0.4 mg PO DAILY Qty: 12 0RF Rx Instructions: start 05/19 (received first dose in ED 05/18 calcium carbonate 600 mg calcium (1,500 mg) tablet 1,200 mg PO QAM Patient Comments: TAKES 600MG IN AM multivitamin Tablet 1 tablet PO QAM cyanocobalamin (vitamin B-12) 1,000 mcg capsule 1,000 mcg PO QAM duloxetine [Cymbalta] 30 mg capsule,delayed release(DR/EC) 30 mg PO DAILY Qty: 90 3RF allopurinol 300 mg tablet 300 mg PO QAM Qty: 90 3RF metformin 500 mg tablet extended release 24 hr 1,000 mg PO BID Qty: 360 3RF cholecalciferol (vitamin D3) 1,250 mcg (50,000 unit) capsule 50,000 unit PO WEEKLY Qty: 12 3RF Patient Comments: TAKES ON MONDAY levothyroxine [Synthroid] 100 mcg tablet 100 mcg PO . q.a.m. Qty: 90 3RF pantoprazole 40 mg tablet,delayed release (DR/EC) 40 mg PO QAM Qty: 90 3RF ropinirole 0.25 mg tablet 0.25 mg PO BID Qty: 60 11RF triamcinolone acetonide 0.5 % cream 1 applic topical BID PRN (Reason: Dry Skin) Qty: 60 3RF Rx Instructions: apply to rash on extremities and trunk twice daily until clear but no longer than 2 weeks at a time ferrous sulfate 325 mg (65 mg iron) tablet,delayed release (DR/EC) 325 mg PO DAILY Qty: 90 3RF Held aspirin [Jaya Low Dose Aspirin] 81 mg Tablet,Delayed Release (Dr/Ec) 81 mg PO HS Hold Instructions: Resume on 09/04/25. Discontinued chlorhexidine gluconate [Hibiclens] 4 % liquid 1 applic topical ONCE Qty: 237 0RF Rx Instructions: Cleanse operative extremity, in shower, every day for 1 week prior to surgical procedure. No Action cyclobenzaprine 10 mg tablet 10 mg PO HS PRN (Reason: muscle spasm) Qty: 90 5RF Other Ambulatory Orders: Basic Metabolic Panel (Routine) Timeframe: 3 Days Facility: [facility] - Location: Home Health Labs Ordered By: Criss Melendez Complete Blood Count no Diff (Routine) Timeframe: 3 Days Facility: [facility] - Location: Home Health Labs Ordered By: Criss Melendez Date of admission: 08/06/25 15:32 Primary Care Provider: Dale Funes Admitting Provider: Oscar Light Attending physician on admission: Oscar Light Condition: Stable
--- NOTE | 2025-09-09 08:35 | DS_ITS ---
Report was cancelled by mistake on 09/10/2025. Original report was signed by Dr. Light on 09/09/25 at 0835. DS: Admitting Diagnosis Discharge Date 08/08/25 DS: Summary Time Spent with Patient Time attestation: Total time spent providing and/or coordinating discharge services: Discharge Plan Discharge Attending physician on discharge: Oscar Light Consulting providers: Christos Falcon; Mukul Burns; Criss Melendez; Joaquín Thomson Discharging Clinician: Criss Melendez Anticipated Discharge Date/Time: 08/08/25 15:00 Patient Disposition: Home with Home Health Service Activity: may shower, no driving and follow weight bearing status Diet: as tolerated Wound Care Instructions: follow printed instructions Discharge Instructions: Per Care Coordination: Patient to have [facility] for RN/PT/OT services. Office will call patient for initial visit. Office ph# [phone]. Post Op Total Knee Replacement Instructions Dr. Oscar Light [phone] * Your dressing will be changed prior to your discharge. You will be sent home with one additional dressing to be changed on post op day 7 by the home health RN. Your mary jo will be removed on the 14th day after surgery and steri- strips will be placed. Please practice good hand hygiene and do not touch your incision in order to prevent infection. * You may shower with your dressing but do not submerge in a bath tub. * Do not drive or operate machinery until you are released by Dr. Light. * Do not walk without a walker for any reason until you are released by Dr. Light. * Continue to use your ice machine. Please use a towel or pillow case to protect your skin before applying your ice machine. * Do NOT place a pillow under your knee. You may use a pillow from the calf down if needed. This will prevent a flexion contracture postoperatively. * CPM: You may begin use of your CPM machine at home if you have been given one pre-operatively. DO NOT USE WHILE YOU ARE SLEEPING. * ROMTech: If you were given a ROMTech Portable Connect System preoperatively, you are to begin use on the day you arrive home postoperatively. Our goal is for you to use the machine 5 times per day. The sessions are very short in the beginning and will progress as you progress. We are able to monitor your progress from afar as well as your pain and other reported symptoms. If you have difficulties with the machine, please call . NOTE: Please attempt to use the machine even when in pain as this will marble helper your therapy with very gentle motion. * Your first post op appointment was sent to you via mail preoperatively. If you have any questions or are unable to make your appointment, please contact our office for scheduling questions. * Your medications have been sent to your pharmacy. You have been sent home with pain medication. Please picker tender helper an over the counter stool softener to prevent constipation due to narcotic use. Please keep this in mind during your postoperative recovery. If you are not experiencing regular bowel movements, please contact our office for further instruction. * Please contact our office with any questions/concerns regarding your knee at [phone]. Patient Instructions: Antibiotic Form Patient Language: Uzbek Stand Alone Forms: General Discharge Information Follow-up/Referrals: Oscar Light MD [Physician, Orthopedics] - Keep Reg. Scheduled Appt. Discharge Medications: New oxycodone-acetaminophen 5-325 mg Tablet 1 tablet PO Q4-6H PRN (Reason: pain) Qty: 30 0RF aspirin 325 mg Tablet,Delayed Release (Dr/Ec) 325 mg PO Q12HR 28 Days Qty: 56 0RF magnesium oxide 400 mg (241.3 mg magnesium) Tablet 400 mg PO QAM 30 Days Qty: 30 0RF Continued (DME) pen needle, diabetic [Novofine 32] 32 gauge x 1/4 needle See Rx Instructions .ROUTE .MEDSUPPLY Qty: 50 0RF Rx Instructions: use weekly with Ozempic (DME) OneTouch Ultra Blue Test Strip Strip See Rx Instructions .ROUTE .MEDSUPPLY Qty: 100 3RF Rx Instructions: checking blood sugar once daily (DME) lancets [OneTouch UltraSoft Lancets] [facility] See Rx Instructions .ROUTE .MEDSUPPLY Qty: 100 3RF Rx Instructions: Checking Blood Sugar once daily lisinopril 40 mg tablet 40 mg PO DAILY Qty: 90 3RF amlodipine 10 mg tablet 10 mg PO DAILY sennosides [Senokot] 8.6 mg tablet 8.6 mg PO DAILY cholecalciferol (vitamin D3) 1,250 mcg (50,000 unit) capsule 1,250 mcg PO WEEKLY Patient Comments: TAKES ON MONDAYS vitamin E 268 mg (400 unit) capsule 268 mg PO DAILY rosuvastatin 20 mg tablet 20 mg PO QHS meloxicam 7.5 mg tablet 7.5 mg PO BID tamsulosin 0.4 mg capsule 0.4 mg PO DAILY Qty: 12 0RF Rx Instructions: start 05/19 (received first dose in ED 05/18 calcium carbonate 600 mg calcium (1,500 mg) tablet 1,200 mg PO QAM Patient Comments: TAKES 600MG IN AM multivitamin Tablet 1 tablet PO QAM cyanocobalamin (vitamin B-12) 1,000 mcg capsule 1,000 mcg PO QAM duloxetine [Cymbalta] 30 mg capsule,delayed release(DR/EC) 30 mg PO DAILY Qty: 90 3RF allopurinol 300 mg tablet 300 mg PO QAM Qty: 90 3RF metformin 500 mg tablet extended release 24 hr 1,000 mg PO BID Qty: 360 3RF cholecalciferol (vitamin D3) 1,250 mcg (50,000 unit) capsule 50,000 unit PO WEEKLY Qty: 12 3RF Patient Comments: TAKES ON MONDAY levothyroxine [Synthroid] 100 mcg tablet 100 mcg PO . q.a.m. Qty: 90 3RF pantoprazole 40 mg tablet,delayed release (DR/EC) 40 mg PO QAM Qty: 90 3RF ropinirole 0.25 mg tablet 0.25 mg PO BID Qty: 60 11RF triamcinolone acetonide 0.5 % cream 1 applic topical BID PRN (Reason: Dry Skin) Qty: 60 3RF Rx Instructions: apply to rash on extremities and trunk twice daily until clear but no longer than 2 weeks at a time ferrous sulfate 325 mg (65 mg iron) tablet,delayed release (DR/EC) 325 mg PO DAILY Qty: 90 3RF Held aspirin [Jaya Low Dose Aspirin] 81 mg Tablet,Delayed Release (Dr/Ec) 81 mg PO HS Hold Instructions: Resume on 09/04/25. Discontinued chlorhexidine gluconate [Hibiclens] 4 % liquid 1 applic topical ONCE Qty: 237 0RF Rx Instructions: Cleanse operative extremity, in shower, every day for 1 week prior to surgical procedure. No Action cyclobenzaprine 10 mg tablet 10 mg PO HS PRN (Reason: muscle spasm) Qty: 90 5RF Other Ambulatory Orders: Basic Metabolic Panel (Routine) Timeframe: 3 Days Facility: [facility] - Location: Home Health Labs Ordered By: Criss Melendez Complete Blood Count no Diff (Routine) Timeframe: 3 Days Facility: [facility] - Location: Home Health Labs Ordered By: Criss Melendez Date of admission: 08/06/25 15:32 Primary Care Provider: Dale Funes Admitting Provider: Oscar Light Attending physician on admission: Oscar Light Condition: Stable Please be advised this is a medical document. It is intended for hunq-tm-gyop communication. It is written in medical language and may contain unfamiliar abbreviations or verbiage. Medical documents are intended to carry relevant information, facts as evident, and the clinical opinion of the practitioner at the time of the encounter. This report may have been done utilizing a voice recognition system. Attempts have been made to correct errors. However, there may be uncorrected grammatical, spelling, and recognition errors present. The file time of this note does not necessarily represent the time the patient was seen. Report Initialized date/time: Oscar Light MD 09/09/25834 Electronically signed by:
== END 2025-08-08 18:00 | disposition home health service (06) | DRG 470 ==
LOC: ANHSURGERY 16:04 → ANH3MEDSUR 16:04
PROVIDERS: Family Medicine; Nurse Practitioner Family; Admitting Provider Orthopaedic Surgery; PCP Family Medicine; Visit Provider Orthopaedic Surgery
PROC: 0SRC0J9 Replacement of Right Knee Joint with Synthetic Substitute, Cemented, Open Approach (ICD-10-PCS; CPT 27447; principal; 2025-08-05 12:00)
DX: M17.11 Unilateral primary osteoarthritis, right knee (principal); M25.559 Pain in unspecified hip; E78.2 Mixed hyperlipidemia; E87.5 Hyperkalemia; E11.9 Type 2 diabetes mellitus without complications; M10.9 Gout, unspecified; M54.89 Other dorsalgia; M54.2 Cervicalgia; K21.9 Gastro-esophageal reflux disease without esophagitis; K58.0 Irritable bowel syndrome with diarrhea; E89.0 Postprocedural hypothyroidism; G25.81 Restless legs syndrome; D51.9 Vitamin B12 deficiency anemia, unspecified; E55.9 Vitamin D deficiency, unspecified; R79.0 Abnormal level of blood mineral; F10.90 Alcohol use, unspecified, uncomplicated; E66.9 Obesity, unspecified; V89.2XXS Person injured in unspecified motor-vehicle accident, traffic, sequela; Z68.38 Body mass index [BMI] 38.0-38.9, adult; Z86.16 Personal history of COVID-19; Z90.49 Acquired absence of other specified parts of digestive tract; Z87.891 Personal history of nicotine dependence; Z79.84 Long term (current) use of oral hypoglycemic drugs; Z79.891 Long term (current) use of opiate analgesic; Z79.4 Long term (current) use of insulin
CPT/HCPCS: 36415; 73560; 80048; 80053; 80307; 81001; 82040; 82948; 83036; 83735; 84132; 85025; 85027; 85610; 85730; 86850; 86900; 86901; 87086; 87641; 97110; 97161; 97165; 97530; J0690; A9270; C1713; C1776; J0166; J1100; J1171; J1596; J1885; J2003; J2270; J2371; J2405; J2704; J2795; J3010; J3290; J3373; J3475; J7030; J7120

== ENCOUNTER 2025-08-12 14:16 | Outpatient (NON) | payer MEDICARE, OTHER, SELFPAY ==
--- OUTSIDE RECORDS SUMMARY | 2025-08-12 16:34 | XMS_ITS | Clinical Summary ---
Author Organization [facility] Address [address] [place] [address] Care Team Providers Care Illustrator Set Name Role Phone Dale Funes MD Primary Care Provider [phone] Source Comments [facility],non-owned Affiliates and Associated Physician Practices is amultiple site organization consisting of ambulatory clinics and hospital sitesin [place], [place], [place] and [place]. This disclosure is being madepursuant to the Care Everywhere program and may not contain all information available regarding this patient. Last updated 18.[facility] Social History Tobacco Use Types Packs/Day Years Used Date Smoking Tobacco: Never Assessed Sex and Gender Information Value Date Recorded Sex Assigned at Not on file Legal Sex Male 11:00 PM PETROPHYSICIST Gender Identity Not on file Sexual Orientation Not on file Last Filed Vital Signs Vital Sign Reading Time Taken Comments Blood Pressure 113/72 12/26/2017 12:23 PM PETROPHYSICIST Pulse 75 12/26/2017 12:23 PM PETROPHYSICIST Temperature 36.3 C (97.4 F) 12/26/2017 8:19 AM PETROPHYSICIST Respiratory Rate 13 12/26/2017 12:23 PM PETROPHYSICIST Oxygen Saturation 94% 12/26/2017 12:23 PM PETROPHYSICIST Inhaled Oxygen Concentration - - Weight 127.9 kg (282 lb) 12/26/2017 8:15 AM PETROPHYSICIST Height 185.4 cm (6' 1) 12/26/2017 8:15 AM PETROPHYSICIST Body Mass Index 37.21 12/26/2017 8:15 AM PETROPHYSICIST Plan of Treatment Health Maintenance Due Date [...] RNA QN PCR Routine 11/13/2017 1:39 PM PETROPHYSICIST from Last 3 Months or Most Recently Relevant to Health Maintenance Results * HEPATITIS C AB W/RFLX TO HCV RNA QN PCR (11/13/2017 1:39 PM PETROPHYSICIST) Hepatitis C Antibody 0.2 0.0 - 0.9 s/co ratio [facility] ([facility]) 11/13/2017 1:39 PM PETROPHYSICIST 11/13/2017 Narrative [facility] ([facility]) - 11/14/2017 7:11 AM PETROPHYSICIST Performed at: 01 - [facility] [address] [place], [place] [id number] Medical Collections Representative: Wayne Kelly PhD, Phone: [phone] Christos Blum MD LAB - CHEMISTR Y ORDERABLES Final Result [facility] ([facility]) [address] [place] [address], [facility] from Last 3 Months or Most Recently Relevant to Health Maintenance [place] [address] MEDICARE [facility] SELF PAY NO INSURANCE Member Subscriber Plan / Payer (Ef fective for All Dates) Name:Juan Libertad Rohit Member ID:Not on file Relation to Subscriber:Not on file Name:LIBERTAD LORENZO Subscriber ID:Not on file (Home) Address: [address] [place] [id number] Payer ID:Not on file Group ID:Not on file Type:Self Pay Address: [place], [place] Care Teams Illustrator Set Relationship Specialty Start Date End Date Dale Funes MD PCP - General 03/14/18
--- OUTSIDE RECORDS SUMMARY | 2025-08-12 16:34 | XMS_ITS | Clinical Summary ---
Author Organization [facility] Address [address] [place] [address] Care Team Providers Care Senior C Software Developer Name Role Phone Dale Funes MD Unavailable [phone] Dale Funes MD Primary Care Provider [phone] Allergies No known active allergies Medications allopurinol [...] evening 3 06/11/20 19 Active calcium carbonate ([id number]) 1,250 MG (500 mg of elemental calcium) [...] Active cholecalciferol (VITAMIN D-3) 50,000 unit capsule 19529 UNIT ORALLY WEEKLY 12/18/19 23 Active DULoxetine [...] Knee Surgery - (Added by TW Conv) [place] RPR UMBILICAL HERNIA < 5 YRS REDUCIBLE Umbilical Hernia Repair - (Added by TW Conv) [place] ARTHRD ANT INTERBODY MIN DSC CRV BELOW [...] on file Legal Sex Male 1:06 AM GUIDE DOMESTIC TOUR Gender Identity Not on file Sexual Orientation [...] 01/22/2018, 12/11/2017 Medical Devices Implanted Type Area Apprentice Machinist Outside Device Identifier Shelf Expiration Date Model / Serial / Lot Conmed Kathleen Conmed 11mm Duraclip [id number] - [id number] Implanted:Qty: 1 on 03/10/2023 by Rosario Bravo MD at [facility] Conmed Kathleen 11/12/2024 [id number] / / [id number] Conmed Kathleen Conmed 11mm Duraclip [id number] - [id number] Implanted:Qty: 1 on 03/10/2023 by Rosario Bravo MD at [facility] Conmed Kathleen 11/12/2024 [id number] / / [id number] Insurance MEDICARE [facility] MEDICARE [facility] MEDICARE [employer] COMPENSATION GENERIC Advance Directives For more information, please contact: [phone] * Full Code (Latest Code Status on File) Date Activated Date Inactivated Comments 03/10/2023 7:16 AM 03/10/2023 1:30 PM Care Teams Senior C Software Developer Relationship Specialty Start Date End Date Dale Funes MD [address] [address] PCP - General Family Medicine 03/07/23 Dale Funes MD [address] [address] 06/25/19
--- OUTSIDE RECORDS SUMMARY | 2025-08-12 16:34 | XMS_ITS | Clinical Summary ---
Author Organization [facility] Address [address] [address] Phone Care Team Providers Care Market Intelligence Consultant Name Role Phone Dale Funes MD Primary [...] to complete this topic Insurance Care Teams Market Intelligence Consultant Relationship Specialty Start Date End Date Dale Funes MD [address] [address] PCP - General Family Medicine 11/17/16
[2025-08-12 18:52] LABS: Hematocrit 36.6 % (42.0-52.0); Hemoglobin 11.3 g/dL (14.0-18.0); Mean Corpuscular HGB Conc 30.9 g/dl (32-36); Mean Corpuscular Hemoglobin 29.9 pg (26-34); Mean Corpuscular Volume 96.8 fl (80-100); Platelet Count Result 413 k/mm3 (150-375); Red Blood Count 3.78 M/mm3 (4.6-6.20); White Blood Count 20.7 K/mm3 (4.5-10.0)
[2025-08-12 19:07] LABS: Anion Gap 8 mmol/L (4-12); Blood Urea Nitrogen 23 mg/dL (9-20); Calcium 8.7 mg/dL (8.4-10.2); Carbon Dioxide 26 mmol/L (22-30); Chloride 99 mmol/L (98-107); Estimated Glomerular Filt Rate > 60; Glucose 166 mg/dL (65-110); Potassium 4.4 mmol/L (3.4-5.0); Sodium 133 mmol/L (137-145)
== END 2025-08-12 14:17 | disposition home or self-care (01) ==
PROVIDERS: Orthopaedic Surgery; PCP Family Medicine; Visit Provider Nurse Practitioner Family
DX: Z47.1 Aftercare following joint replacement surgery (principal); Z96.661 Presence of right artificial ankle joint
CPT/HCPCS: 80048; 85027

== ENCOUNTER 2025-10-06 14:23 | Outpatient (CLI) | payer MEDICARE, OTHER, SELFPAY ==
[2025-10-06 15:41] LABS: Hematocrit 40.5 % (42.0-52.0); Hemoglobin 12.9 g/dL (14.0-18.0); Immature Granulocyte Percent A 2.2 % (0-0.5); Lymphocytes Absolute Auto 1.63 K/mm3 (0.9-3.2); Mean Corpuscular HGB Conc 31.9 g/dl (32-36); Mean Corpuscular Hemoglobin 29.9 pg (26-34); Mean Corpuscular Volume 93.8 fl (80-100); Nucleated Red Blood Cells Absolute Auto 0.000 K/mm3 (0.0-0.012); Nucleated Red Blood Cells Perc 0.0 % (0.0-0.2); Platelet Count Result 359 k/mm3 (150-375); Red Blood Count 4.32 M/mm3 (4.6-6.20); White Blood Count 13.8 K/mm3 (4.5-10.0)
[2025-10-06 15:54] LABS: INR 1.1; Prothrombin Time 14.5 Seconds (11.1-14.7)
[2025-10-06 15:55] LABS: Partial Thromboplastin Time 29.6 Seconds (22.3-36.8)
[2025-10-06 16:00] LABS: Albumin Level 4.3 g/dL (3.5-5.1); Anion Gap 7 mmol/L (4-12); Blood Urea Nitrogen 20 mg/dL (9-20); Calcium 9.3 mg/dL (8.4-10.2); Carbon Dioxide 25 mmol/L (22-30); Chloride 104 mmol/L (98-107); Estimated Glomerular Filt Rate 57; Glucose 104 mg/dL (65-110); Sodium 136 mmol/L (137-145)
[2025-10-06 16:02] LABS: Add Urine Microscopic? YES; Appearance Urine Clear (Clear); Glucose Urine UA Negative (Negative); Leukocyte Esterase Ur Trace LEU/UL (Negative); Nitrate Urine Negative (Negative); Non Pathogenic Casts 0-2; Specific Grav Ur 1.017 (1.001-1.035)
[2025-10-06 16:08] LABS: Potassium 4.5 mmol/L (3.4-5.0)
[2025-10-06 16:53] LABS: MRSA (PCR) NOT DETECTED (NOT DETECTE)
== END 2025-10-06 14:24 | disposition home or self-care (01) ==
PROVIDERS: PCP Family Medicine; Visit Provider Orthopaedic Surgery
DX: Z01.818 Encounter for other preprocedural examination (principal); M17.12 Unilateral primary osteoarthritis, left knee
CPT/HCPCS: 80048; 80307; 81001; 82040; 85025; 85610; 85730; 86850; 86900; 86901; 87641

== ENCOUNTER 2025-10-16 16:02 | Inpatient (IN) | payer MEDICARE, OTHER, SELFPAY ==
--- NOTE | 2025-10-06 09:38 | PC.NURSE ---
Addendum entered by Ramya James RN 10/06/25 09:54: ARRIVE AT [facility] AT 6 AM ON 10/15/25 FOR A 8 AM SURGERY Original Note: [facility] has started construction of its new state of the art ER which will open Spring 2026. With this, we anticipate parking may be a challenge for some our surgical patients and families. Parking spaces are limited but are available for all Surgical, obstetrics, and ER patients sharing this lot. If you arrive and find you are having a hard time finding a parking space, please note that we understand the challenges, please drive around the hospital and park near Hospital Entrance 1. When you enter this entrance, you can ask a volunteer to direct or take you back to the surgical waiting area to check in. We appreciate everyone?s understanding of these expected challenges while we build for your future. Report to the Outpatient Waiting Room, entrance under the green pavilion located off [address], at time _8 am on date _10/15/25 . Planned Procedure Time: __10 am .? Time changes happen often and if your time is changed the preop area will call you the afternoon before. - You and your visitor will be asked to self-screen and do not enter if you have any COVID symptoms. Please call surgeon if you need to reschedule. - A mask is optional within the hospital at this time. Patients may have clear liquids (water, carbonated beverages, clear teas, apple juice) until 3 hours prior to surgery( 7am) with a maximum of 20 ounces. - No food from midnight until time of surgery and no smoking, or chewing tobacco (or any form of nicotine). No chewing gum, candy or mints. Take only the following medications with a SIP of water on the morning of surgery: _AMLODIPINE,DULOXETINE,LEVOTHYROXINE DO NOT STOP ANY OF YOUR OTHER PRESCRIPTION MEDICATIONS PRIOR TO SURGERY EXCEPT THE FOLLOWING Hold all vitamins and supplements for 3 days per anesthesiologist.LAST DOSE 10/11/25 Medications to discontinue per physician ____HOLD ASPIRIN PER DR YOUNGER Date to take last dose Please no make-up, nail bulgarian, hairspray, perfume, deodorant, or body powder the day of surgery.? No jewelry (including any body piercings) or valuables the day of surgery, leave them at home.? Please take a shower or bath the night before, or the morning of, surgery with an antibacterial soap.? Wear comfortable, loose fitting clothing.? Children are encouraged to wear pajamas. - Jewelry must be removed prior to entering the operating room.? Rings and piercings that are not removed may be cut off. - The hospital will not accept responsibility for valuables.? - Please leave all valuables, including medications, at home the day of surgery. If you are going home after surgery, a licensed superintendent drivers must drive you home.? - NO public transportation without another adult if you receive anesthesia. - We recommend that an adult stay with you for 24 hours following discharge. - We also recommend that you do not drive, make important decision, drink alcoholic beverages, or take any drugs that were not prescribed by your health care provider for at least 24 hours after your discharge time. For Pediatric surgeries, we recommend two adults accompany the child home. Follow any additional instructions given to you from your surgeon. Telephone instructions given to _PATIENT and asked if any additional questions and then verbalized understanding. Patient advised to call surgeon office or pre surgery nurse liaison [phone] if any additional questions.
[2025-10-06 10:50] VITALS: BMI 38.4
[2025-10-15] VITALS (14 sets, daily range): BP systolic 102–133; BP diastolic 54–74; PULSE 58–82; RESP 14–20; TEMP 36.1–36.8; O2SAT 91–98
--- OUTSIDE RECORDS SUMMARY | 2025-10-15 03:51 | XMS_ITS | Clinical Summary ---
Author Organization [facility] Address [address] [address] Phone Care Team Providers Care Insert Molding Operator Name Role Phone Dale Funes MD [...] to complete this topic Insurance Care Teams Insert Molding Operator Relationship Specialty Start Date End Date Dale Funes MD [address] [address] PCP - General Family Medicine 11/17/16
--- OUTSIDE RECORDS SUMMARY | 2025-10-15 03:51 | XMS_ITS | Clinical Summary ---
Author Organization [facility] Address [address] [place] [address] Care Team Providers Care Human Resources Manager Name Role Phone Dale Funes MD Primary Care Provider [phone] Source Comments [facility],non-owned Affiliates and Associated Physician Practices is amultiple site organization consisting of ambulatory clinics and hospital sitesin [place], [place], [place] and [place]. This disclosure is being madepursuant to the Care Everywhere program and may not contain all information available regarding this patient. Last updated 18.[facility] Social History Tobacco Use Types Packs/Day Years Used Date Smoking Tobacco: Never Assessed Sex and Gender Information Value Date Recorded Sex Assigned at Not on file Legal Sex Male 11:00 PM BIBLIOGRAPHIC SERVICES SPECIALIST Gender Identity Not on file Sexual Orientation Not on file Last Filed Vital Signs Vital Sign Reading Time Taken Comments Blood Pressure 113/72 12/26/2017 12:23 PM BIBLIOGRAPHIC SERVICES SPECIALIST Pulse 75 12/26/2017 12:23 PM BIBLIOGRAPHIC SERVICES SPECIALIST Temperature 36.3 C (97.4 F) 12/26/2017 8:19 AM BIBLIOGRAPHIC SERVICES SPECIALIST Respiratory Rate 13 12/26/2017 12:23 PM BIBLIOGRAPHIC SERVICES SPECIALIST Oxygen Saturation 94% 12/26/2017 12:23 PM BIBLIOGRAPHIC SERVICES SPECIALIST Inhaled Oxygen Concentration - - Weight 127.9 kg (282 lb) 12/26/2017 8:15 AM BIBLIOGRAPHIC SERVICES SPECIALIST Height 185.4 cm (6' 1) 12/26/2017 8:15 AM BIBLIOGRAPHIC SERVICES SPECIALIST Body Mass Index 37.21 12/26/2017 8:15 AM BIBLIOGRAPHIC SERVICES SPECIALIST Plan of Treatment Health Maintenance Due [...] DEPRESSION SCREENING 10/30/2024 COVID-19 VACCINE (1 - 2024-2 6 season) 2025 INFLUENZA VACCINE (#1) 2025 Respiratory [...] RNA QN PCR Routine 11/13/2017 1:39 PM BIBLIOGRAPHIC SERVICES SPECIALIST from Last 3 Months or Most Recently Relevant to Health Maintenance Results * HEPATITIS C AB W/RFLX TO HCV RNA QN PCR (11/13/2017 1:39 PM BIBLIOGRAPHIC SERVICES SPECIALIST) Hepatitis C Antibody 0.2 0.0 - 0.9 s/co ratio [facility] ([facility]) 11/13/2017 1:39 PM BIBLIOGRAPHIC SERVICES SPECIALIST 11/13/2017 Narrative [facility] ([facility]) - 11/14/2017 7:11 AM BIBLIOGRAPHIC SERVICES SPECIALIST Performed at: 01 - [facility] [address] [place], [place] [id number] Basic Combatant Swimmer: Wayen Kelly PhD, Phone: [phone] Christos Blum MD LAB - CHEMISTR Y ORDERABLES Final Result [facility] ([facility]) [address] [place] [address], [facility] from Last 3 Months or Most Recently Relevant to Health Maintenance Insurance MEDICARE MEDICARE [facility] SELF PAY NO INSURANCE Member Subscriber Plan / Payer (Ef fective for All Dates) Name:Juan Libertad Rohit Member ID:Not on file Relation to Subscriber:Not on file Name:LIBERTAD LORENZO Subscriber ID:Not on file (Home) Address: [address] [place] [id number] Payer ID:Not on file Group ID:Not on file Type:Self Pay Address: [place], [place] Care Teams Human Resources Manager Relationship Specialty Start Date End Date Dale Funse MD PCP - General 03/14/18
--- OUTSIDE RECORDS SUMMARY | 2025-10-15 03:51 | XMS_ITS | Clinical Summary ---
Author Organization [facility] Address [address] [place] [address] Care Team Providers Care Stage Setting Painter Apprentice Name Role Phone Dale Funes MD Unavailable [phone] Dale Funes MD Primary Care Provider [phone] Allergies No known active allergies Medications allopurinol [...] evening 3 06/11/20 19 Active calcium carbonate ([id number]) 1,250 MG (500 mg of elemental calcium) [...] Active cholecalciferol (VITAMIN D-3) 50,000 unit capsule 23637 UNIT ORALLY WEEKLY 12/18/19 23 Active DULoxetine [...] Knee Surgery - (Added by TW Conv) [place] RPR UMBILICAL HERNIA < 5 YRS REDUCIBLE Umbilical Hernia Repair - (Added by TW Conv) [place] ARTHRD ANT INTERBODY MIN DSC CRV BELOW [...] on file Legal Sex Male 1:06 AM SUPPORT SERVICES TECH Gender Identity Not on file Sexual Orientation [...] 12/11/2017 Medical Devices Implanted Type Area Vacuum Drier Operator Device Identifier Shelf Expiration Date Model / Serial / Lot Conmed Kathleen Conmed 11mm Duraclip [id number] - [id number] Implanted:Qty: 1 on 03/10/2023 by Rosario Bravo MD at [facility] Conmed Kathleen 11/12/2024 [id number] / / [id number] Conmed Kathleen Conmed 11mm Duraclip [id number] - [id number] Implanted:Qty: 1 on 03/10/2023 by Rosario Bravo MD at [facility] Conmed Kathleen 11/12/2024 [id number] / / [id number] Insurance MEDICARE [facility] MEDICARE [facility] MEDICARE [facility] [employer] WORKERS COMPENSATION GENERIC Advance Directives For more information, please contact: [phone] * Full Code (Latest Code Status on File) Date Activated Date Inactivated Comments 03/10/2023 7:16 AM 03/10/2023 1:30 PM Care Teams Stage Setting Painter Apprentice Relationship Specialty Start Date End Date Dale Funes MD [address] [address] PCP - General Family Medicine 03/07/23 Dale Funes MD [address] [address] 06/25/19
[2025-10-15] MEDS: ACETAMINOPHEN 500 MG TABLET 1000 MG PO (06:20)
[2025-10-15] MEDS: TRANEXAMIC ACID 1,000MG/ISO100 1,000 MG/100 ML BAG 200 MG IVPB (06:25)
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
--- NOTE | 2025-10-15 08:08 | WPDHPUPDATE1 ---
History and Physical Update Update Date/Time: 10/15/25 08:08 History and Physical has been reviewed, including an updated exam of the patient. There are NO changes in the patient's condition. Risks, benefits, and alternatives have been discussed and questions answered. Patient agrees to proceed with procedure.
--- NOTE | 2025-10-15 08:20 | WPDANESPNB ---
Anes - Peripheral Nerve Block Date/Time: 10/15/25 08:20 I have discussed with the patient/family/POA the placement of a peripheral nerve block for post-operative pain management, including associated risks, benefits, complications, and side effects. Alternative methods of post-operative analgesia were detailed. Questions were solicited and answers provided to the satisfaction of the patient/family/POA. Time-Out: A pre-procedural Time-Out was completed immediately before starting the procedure and confirmed: Patient Identification, Site, Procedure, Patient Position and the Availability of Requisite Equipment. Clinical Indications: Acute post-operative pain management requested by the operative surgeon. Nerve Block Insertion Note Anes-nerve block: adductor canal left Patient position: supine Skin prep: chlorhexidine Needle: 22 gauge, stimulating, insulated echogenic needle. Needle length: 80 mm Technique: ultrasound Injectate: bupivacaine 0.5% with epi 5 mcg/ml (30cc - no epi) Observations: tolerated well Complications: none Procedure start time:: 812 Procedure end time:: 815
[2025-10-15] MEDS: ceFAZolin 3 GM/D5W 100 ML 100 ML IVPB (08:42)
[2025-10-15] MEDS: SODIUM CHLORIDE 0.9% IV 37.7 ML, MORPHINE SULFATE INJ (*CRX) 2 MG, ROPivacaine HCL 1% 2... INFILTRATE (09:21)
[2025-10-15] MEDS: LACTATED RINGERS 1,000 ML 30 ML IV CONT ×2 (11:21)
--- NOTE | 2025-10-15 11:23 | W.PM.PROC2 ---
Procedure Note - Detailed Date of Procedure 10/15/25 Pre-op Diagnosis Left Knee DJD Post-op Diagnosis Same Procedure Performed LEFT TKA Surgeon Oscar Light MD Anesthesia General Description of Procedure THE LEFT KNEE WAS PREPPED AND DRAPED IN THE STERILE FASHION. THERE WAS A 10 DEGREE EXTENSOR LAG. A MIDLINE SKIN INCISION WAS MADE. A MEDIAL PARAPATELLAR ARTHROTOMY WAS MADE. THE PATELLA WAS EVERTED. THERE WAS TRICOMPARTMENT DJD. THERE WAS MINIMAL PATELLA DJD. AN INTRAMEDULLARY KAREN WAS PLACED IN THE FEMUR. A DISTAL FEMORAL CUT WAS MADE IN 5 DEGREES OF VALGUS REMOVING APPROXIMATELY 9 MM OF BONE FROM THE DISTAL FEMUR. THE FEMUR WAS SIZED TO 70. A 70 FEMORAL CUTTING BLOCK WAS PLACED IN 3 DEGREES OF EXTERNAL ROTATION AND IN ALIGNMENT WITH EDITH'S LINE AND THE TRANSEPICONDYLAR AXIS. ANTERIOR POSTERIOR AND CHAMFER CUTS WERE MADE. THE CUTS WERE EXCELLENT. NEXT AN INTRAMEDULLARY CUTTING GUIDE WAS PLACED IN THE TIBIA. A TRANS TIBIAL CUT WAS MADE ALONG THE LONG AXIS OF THE TIBIA. APPROXIMATELY 8 MM OF BONE WAS REMOVED FROM THE HIGH SIDE OF THE TIBIA. THE TIBIA WAS THEN PLANED TO A SMOOTH SURFACE. POSTERIOR FEMORAL OSTEOPHYTES WERE REMOVED FROM THE FEMORAL CONDYLES. A 79 TIBIAL TRIAL WAS PLACED IN ALIGNMENT WITH THE 1/3 MEDIAL ASPECT OF THE TIBIAL TUBERCLE. THEN A 70 FEMORAL TRIAL COMPONENT WAS PLACED. BOTH HAD EXCELLENT FITS. EVENTUALLY A 16 MM POLYETHYLENE TRIAL COMPONENT WAS PLACED. THE KNEE WAS TAKEN THROUGH A RANGE OF MOTION. THE KNEE CAME OUT TO FULL EXTENSION. THERE WAS NO ABNORMAL TILT TO THE PATELLA. THERE WAS GOOD A/P AND VARUS/VALGUS STABILITY. THERE WAS NO EXCESSIVE ROLL BACK WITH FLEXION. THE TRIAL COMPONENTS WERE REMOVED. THEN A 70 FEMORAL COMPONENT AND 79 TIBIAL COMPONENT WITH A 16 POLYETHYLENE COMPONENT WERE CEMENTED INTO PLACE. ONCE THE CEMENT WAS HARD THE KNEE WAS TAKEN THROUGH A ROM AGAIN AND FOUND TO BE STABLE WITH NO PATELLA TILT NO EXCESSIVE ROLL BACK WITH FLEXION AND GOOD STABILITY WITH COMPLETE AND FULL EXTENSION. THE KNEE WAS IRRIGATED WITH STERILE BETADINE AND WATER FOR ABOUT 3 MINUTES. THE BLEEDERS WERE CAUTERIZED. THE ARTHROTOMY WAS REPAIRED WITH NUMBER 1 VICRYL AND QUIL. THE SUB CUTANEOUS LAYER WITH 2-0 VICRYL AND THE SKIN WITH 3-0 QUIL THEN DERMABOND. THE WOUND WAS WASHED AND A STERILE DRESSING WAS APPLIED. PATIENT WAS EXTUBATED. Estimated Blood Loss 200 Pathology None sent Complications No immediate complications Condition Stable Disposition PACU
[2025-10-15] MEDS: fentaNYL CITRATE INJ (*CRX) 100 MCG/2 ML VIAL 25 MCG IV PUSH ×8 (11:28→12:30)
--- NOTE | 2025-10-15 13:07 | ADMGEN ---
This patient, Teo Martinez, was admitted to [facility] Surg Room 301-01. Patient/family oriented to hospital policies and general routines including ID bracelet, bed and alarms, visiting hours, pain management, procedures, bathroom and other care routines, personal items, smoking policy, room service/diet, and visiting hours. Information on how to activate the Rapid Response Team has been discussed. Patient/Family are encouraged to report perceived risks to care and to ask questions if they do not understand what they are told or what they should do.
[2025-10-15] MEDS: oxyCODONE/ACETAMINOPHEN (*CRX) 5-325 MG TABLET 1 TABLET PO ×2 (13:14→21:38)
[2025-10-15] MEDS: CYCLOBENZAPRINE HCL 10 MG TABLET PO (14:50)
[2025-10-15] MEDS: metFORMIN HCL XR 500 MG TAB.SR.24H 1000 MG PO (17:15)
[2025-10-15] MEDS: SENNA/DOCUSATE SODIUM TABLET 2 TAB PO (17:15)
[2025-10-15] MEDS: ceFAZolin 2 GM in SODIUM CHLORIDE 0.9% IV 50 ML 100 ML IVPB (17:15)
[2025-10-15] MEDS: WATER FOR IRRIGATION, STERILE 500 ML BOTTLE (17:16)
[2025-10-15] MEDS: HYDROmorphone HCL INJ (*CRX) 1 MG/ML SYR IV PUSH (20:41)
[2025-10-15] MEDS: FAMOTIDINE 20 MG TABLET PO (20:42)
[2025-10-15] MEDS: ROSUVASTATIN 20 MG TABLET PO (20:42)
[2025-10-15] MEDS: ASPIRIN 81 MG ENTERIC TABLET PO (20:42)
--- NOTE | ~2025-10-16 | XR_ITS ---
EXAMINATION: [id number], 10/15/2025 11:35 PRODUCT DEVELOPMENT CHEMIST HISTORY: POST OP LEFT TKA COMPARISON: No comparisons available. Findings: No acute fracture or malalignment. Arthroplasty unremarkable Soft tissues unremarkable. Impression: No acute fracture or malalignment. Reviewed, dictated and finalized at location P. UCT DEVELOPMENT CHEMIST Impression: No acute fracture or malalignment.
[2025-10-16] MEDS: oxyCODONE/ACETAMINOPHEN (*CRX) 10-325 MG TABLET 1 TAB PO ×4 (01:53→20:46)
[2025-10-16] MEDS: ceFAZolin 2 GM in SODIUM CHLORIDE 0.9% IV 50 ML 100 ML IVPB ×2 (01:54→08:31)
[2025-10-16 02:28] VITALS: BP 127/77; PULSE 85; RESP 16; TEMP 37; O2SAT 96
[2025-10-16] MEDS: LEVOTHYROXINE SODIUM 100 MCG TABLET PO (05:57)
[2025-10-16 06:10] VITALS: BP 136/62; PULSE 61; RESP 16; TEMP 36.6; O2SAT 95
[2025-10-16 06:40] LABS: Hematocrit 37.1 % (42.0-52.0); Hemoglobin 11.4 g/dL (14.0-18.0); Immature Granulocyte Percent A 1.6 % (0-0.5); Lymphocytes Absolute Auto 1.20 K/mm3 (0.9-3.2); Mean Corpuscular HGB Conc 30.7 g/dl (32-36); Mean Corpuscular Hemoglobin 29.6 pg (26-34); Mean Corpuscular Volume 96.4 fl (80-100); Nucleated Red Blood Cells Absolute Auto 0.000 K/mm3 (0.0-0.012); Nucleated Red Blood Cells Perc 0.0 % (0.0-0.2); Platelet Count Result 304 k/mm3 (150-375); Red Blood Count 3.85 M/mm3 (4.6-6.20); White Blood Count 19.6 K/mm3 (4.5-10.0)
[2025-10-16 07:03] LABS: Anion Gap 8 mmol/L (4-12); Blood Urea Nitrogen 20 mg/dL (9-20); Calcium 8.5 mg/dL (8.4-10.2); Carbon Dioxide 26 mmol/L (22-30); Chloride 101 mmol/L (98-107); Estimated CRCL calculation 64 ml/min; Estimated Glomerular Filt Rate 53; Glucose 164 mg/dL (65-110); Potassium 4.6 mmol/L (3.4-5.0); Sodium 135 mmol/L (137-145)
[2025-10-16] MEDS: metFORMIN HCL XR 500 MG TAB.SR.24H 1000 MG PO ×2 (08:30→16:53)
[2025-10-16] MEDS: SENNOSIDES 8.6 MG TABLET PO (08:30)
[2025-10-16] MEDS: SENNA/DOCUSATE SODIUM TABLET 2 TAB PO ×2 (08:30→16:52)
[2025-10-16] MEDS: CALCIUM CARBONATE (OSCAL) 500 MG TABLET PO (08:30)
[2025-10-16] MEDS: PANTOPRAZOLE 40 MG TABLET PO (08:30)
[2025-10-16] MEDS: VITAMIN E 400 UNIT CAPSULE PO (08:30)
[2025-10-16] MEDS: MULTIVITAMINS THERAPEUTIC TAB (*BKC) 1 TABLET PO (08:30)
[2025-10-16] MEDS: ASPIRIN 81 MG ENTERIC TABLET PO ×2 (08:30→20:45)
[2025-10-16] MEDS: FERROUS SULFATE 325 MG TABLET PO (08:30)
[2025-10-16] MEDS: FAMOTIDINE 20 MG TABLET PO ×2 (08:31→20:45)
[2025-10-16 10:28] VITALS: BP 103/53; PULSE 64; RESP 20; TEMP 36.9; O2SAT 96
--- NOTE | 2025-10-16 12:12 | P.PNOP_ITS ---
Progress Note: A&P Assessment and Plan (1) S/P total knee arthroplasty: Qualifiers: Laterality: left Qualified Code(s): Z96.652 - Presence of left artificial knee joint Code(s): Z96.659 - Presence of unspecified artificial knee joint Status: Acute Assessment and Plan: POD #1 : Left TKA Continue PT/OT. WBAT. Walker. HIGH FALL RISK. Continue pain control. Ice Knee. Protect skin. DVT prophylaxis with 81mg Aspirin PO BID. SCDs. Incentive Spirometry Use reviewed. Monitor Dressing. Changed today. Monitor drainage with ambulation. Bowel Regimen. Dispo: Home with Home Health pending progress with PT/OT and slowed incisional drainage. Plan Reviewed history, exam, radiographs and current labs with attending MD and covering surgeon, Dr. Light, who agrees with current plan as indicated above. No further recommendations from Dr. Light at this time. Subjective Subjective Date/Time Seen: 10/16/25 12:12 Post Op day: 1 Interval history: POD #1: Left TKA Patient doing well. Complains of pain when up with PT and OT. Also complaining of drainage of the left knee medial incision. Review of Systems Review of Systems: All systems reviewed & are unremarkable except as noted in HPI and below Constitutional: Constitutional: Denies fever(s) and Denies headache(s) ENT: Denies headache(s) Cardiovascular: Cardiovascular: Denies chest pain, Denies diaphoresis, Denies palpitations and Denies dyspnea Respiratory: Respiratory: Denies dyspnea Gastrointestinal: Gastrointestinal: Denies abdominal pain, Denies constipation, Denies nausea and Denies vomiting Genitourinary: Genitourinary: Denies dysuria and Reports nocturia Musculoskeletal: Musculoskeletal: Reports arthralgias (Left Knee ), Reports joint swelling (Left Knee ) and Reports limited range of motion (ROM limited due to recent surgical intervention LEFT Knee ) Neurologic: Denies headache(s) Endocrine: Endocrine: Denies palpitations Exam Const: General: comfortable and no acute distress Resp: Effort & Inspection: normal respiratory effort Cardio: Rate: regular rate Rhythm: regular rhythm GI: GI Palp: Yes Soft to palpation, No Tenderness to palpation present (GI) and No Guarding due to palpation present (GI) Skin: General skin exam: wounds noted (see extremity assessment ) Wounds: wounds noted (see extremity assessment ) Neuro: Cognition (Neuro): normal cognition Other: NV intact aside from block. Moves toes. Sensation intact to light touch. +ankle dorsiflexion/plantarflexion. Extrem: Left lower extremity: normal to inspection, normal capillary refill, knee Details: tenderness (diffuse ) Location: of the patella, swelling (moderate consistent to recent surgery ), abnormal ROM (limited due to recent surgery ) Details: pain with active ROM and pain with passive ROM and ecchymosis (as expected with recent surgery. NO hematoma. ), lower leg (Negative Azam's Sign ), ankle (+ankle dorsiflexion/plantarflexion ) Details: normal to inspection, no edema and normal ROM; no tenderness and no swelling and foot Details: normal capillary refill, toes with normal ROM, vascular exam Details: dorsalis pedis pulse present and motor-sensory exam light-touch normal; no tenderness Other: Incision left TKA dressing c/d/i. No hematoma. No signs of infection. No wound dehiscence. Psych: Mental Status: mental status grossly normal Objective Data Vital Signs Vital Signs: Vital Signs - 24 hr 10/15/25 12:20 10/15/25 12:35 10/15/25 13:10 Temperature 36.1 C L Pulse Rate 82 81 59 L Respiratory Rate 14 14 16 Blood Pressure 102/68 107/54 L 107/64 Pulse Oximetry 94 94 97 Oxygen Delivery Nasal Cannula Nasal Cannula Oxygen Flow Rate 2 2 10/15/25 13:25 10/15/25 13:38 10/15/25 13:52 Temperature 36.1 C L Pulse Rate 58 L Respiratory Rate 16 Blood Pressure 110/62 Pulse Oximetry 98 97 Oxygen Delivery Nasal Cannula Room Air Oxygen Flow Rate 2 10/15/25 13:55 10/15/25 14:55 10/15/25 15:15 Temperature 36.1 C L 36.4 C Pulse Rate 70 68 Respiratory Rate 16 18 Blood Pressure 121/72 112/74 Pulse Oximetry 95 96 Oxygen Delivery Room Air Oxygen Flow Rate 10/15/25 18:28 10/15/25 20:00 10/15/25 20:35 Temperature 36.6 C 36.8 C Pulse Rate 81 81 65 Respiratory Rate 18 18 20 Blood Pressure 116/70 133/58 L Pulse Oximetry 94 94 92 Oxygen Delivery Room Air Oxygen Flow Rate 10/16/25 02:28 10/16/25 06:10 10/16/25 08:00 Temperature 37.0 C 36.6 C Pulse Rate 85 61 Respiratory Rate 16 16 Blood Pressure 127/77 136/62 Pulse Oximetry 96 95 Oxygen Delivery Room Air Oxygen Flow Rate 10/16/25 10:28 Temperature 36.9 C Pulse Rate 64 Respiratory Rate 20 Blood Pressure 103/53 L Pulse Oximetry 96 Oxygen Delivery Oxygen Flow Rate Intake/Output Intake/Output: Intake & Output 10/13/25 10/14/25 10/15/25 10/16/25 23:59 23:59 23:59 23:59 Intake Total 530 1390 Balance 530 1390 Meds/Results Medications: Active Medications Generic Name Dose Route Start Last Admin Trade Name Freq PRN Reason Stop Dose Admin Acetaminophen 500 mg 10/15/25 12:43 Acetaminophen 500 Mg Tablet PO Q6H PRN Pain Rated 1-3 Allopurinol 300 mg 10/16/25 09:00 10/16/25 08:30 Allopurinol 300 Mg Tablet PO 300 mg QAM [facility] Administration Amlodipine Besylate 10 mg 10/16/25 09:00 10/16/25 08:31 Amlodipine Besylate 10 Mg Tablet PO 10 mg DAILY [facility] Administration Aspirin 81 mg 10/15/25 21:00 10/16/25 08:30 Aspirin 81 Mg Enteric Tablet PO 81 mg Q12HR [facility] [place] Administration Calcium Carbonate 500 mg 10/16/25 09:00 10/16/25 08:30 Calcium Carbonate (Oscal) 500 Mg Tablet PO 500 mg QAM TAMMY Administration Cyclobenzaprine HCl 10 mg 10/15/25 12:43 10/15/25 14:50 Cyclobenzaprine Hcl 10 Mg Tablet PO 10 mg HS PRN Administration Muscle Spasm Diazepam 5 mg 10/15/25 12:43 Diazepam (*Crx) 5 Mg Tablet PO Q8H PRN Spasms Diphenhydramine HCl 25 mg 10/15/25 12:43 Diphenhydramine Hcl Inj 50 Mg/Ml Vial IV PUSH Q6H PRN Itching Duloxetine HCl 30 mg 10/16/25 09:00 10/16/25 08:30 Duloxetine Hcl 30 Mg Capsule.Dr PO 30 mg DAILY TAMMY Administration Ergocalciferol 1,250 mcg 10/19/25 09:00 Ergocalciferol (Vitamin D2) 1,250 Mcg (50,000 Units) Capsule PO Vera@0900 [facility] Famotidine 20 mg 10/15/25 21:00 10/16/25 08:31 Famotidine 20 Mg Tablet PO 20 mg Q12HR TAMMY Administration Ferrous Sulfate 325 mg 10/16/25 09:00 10/16/25 08:30 Ferrous Sulfate 325 Mg Tablet PO 325 mg DAILY TAMMY Administration Hydromorphone HCl 1 mg 10/15/25 12:43 10/15/25 20:41 Hydromorphone Hcl Inj (*Crx) 1 Mg/Ml Syr IV PUSH 1 mg Q2H PRN Administration Breakthrough Pain Rated 7-10 or NPO Hydromorphone HCl 0.5 mg 10/15/25 12:43 Hydromorphone Hcl Inj (*Crx) 1 Mg/Ml Syr IV PUSH Q2H PRN Breakthrough Pain Rated 4-6 or NPO Ibuprofen 800 mg in 200 mls @ 400 mls/hr 10/15/25 13:06 Caldolor 800 Mg/200 Ml IVPB Q6H PRN Breakthrough Pain Rated 1-3 or NPO Levothyroxine Sodium 100 mcg 10/16/25 06:30 10/16/25 05:57 Levothyroxine Sodium 100 Mcg Tablet PO 100 mcg DAILY@0630 [facility] Administration Lidocaine 2 patch 10/15/25 13:03 Lidocaine 5% Patch TRANSDERM DAILY PRN pain Lisinopril 40 mg 10/16/25 09:00 10/16/25 08:29 Lisinopril 20 Mg Tablet PO 40 mg DAILY [facility] Administration Metformin HCl 1,000 mg 10/15/25 17:00 10/16/25 08:30 Metformin Hcl Xr 500 Mg Tab.Sr.24h PO 1,000 mg BIDWM [facility] Administration Multivitamins Therapeutic 1 tablet 10/16/25 09:00 10/16/25 08:30 Multivitamins Therapeutic Tab (*Bkc) PO 1 tablet QAM [facility] Administration Naloxone HCl 0.1 mg 10/15/25 12:43 Naloxone Hcl 0.4 Mg/Ml Vial IV PUSH Q2M PRN Opiate Reversal Ondansetron HCl 4 mg 10/15/25 12:43 Ondansetron Inj 4 Mg/2 Ml Vial IV PUSH Q4H PRN Nausea And Vomiting Oxycodone/Acetaminophen 1 tablet 10/15/25 12:43 10/15/25 21:38 Oxycodone/Acetaminophen (*Crx) 5-325 Mg Tablet PO 1 tablet Q4H PRN Administration Pain Rated 4-6 Oxycodone/Acetaminophen 1 tab 10/15/25 12:43 10/16/25 08:30 Oxycodone/Acetaminophen (*Crx) 10-325 Mg Tablet PO 1 tab Q6H PRN Administration Pain Rated 7-10 Pantoprazole Sodium 40 mg 10/16/25 09:00 10/16/25 08:30 Pantoprazole 40 Mg Tablet PO 40 mg QAM TAMMY Administration Polyethylene Glycol 17 gm 10/16/25 09:00 10/16/25 08:31 Polyethylene Glycol 3350 17 Gm Powd.Pack PO 17 gm QAM TAMMY Administration Ropinirole HCl 0.25 mg 10/15/25 21:00 10/16/25 08:31 Ropinirole Hcl 0.25 Mg Tablet PO 0.25 mg Q12HR TAMMY Administration Rosuvastatin Calcium 20 mg 10/15/25 21:00 10/15/25 20:42 Rosuvastatin 20 Mg Tablet PO 20 mg QHS TAMMY Administration Senna 8.6 mg 10/16/25 09:00 10/16/25 08:30 Sennosides 8.6 Mg Tablet PO 8.6 mg DAILY TAMMY Administration Senna/Docusate Sodium 2 tab 10/15/25 17:00 10/16/25 08:30 Senna/Docusate Sodium Tablet PO 2 tab BID TAMMY Administration Triamcinolone Acetonide 1 applic 10/15/25 12:43 Triamcinolone Acet 0.5% Cream 15 Gm Tube TOPICAL BID PRN Dry Skin Vitamin E 400 unit 10/16/25 09:00 10/16/25 08:30 Vitamin E 400 Unit Capsule PO 400 unit DAILY TAMMY Administration Radiology Results: ITS Impressions Knee X-Ray 10/15/25 11:54 Impression: No acute fracture or malalignment. Labs Labs: Laboratory Results - last 24 hr 10/16/25 05:41 WBC 19.6 H RBC 3.85 L Hgb 11.4 L Hct 37.1 L MCV 96.4 MCH 29.6 MCHC 30.7 L RDW 14.4 Plt Count 304 MPV 11.1 H Immature Gran % (Auto) 1.6 H Neut % (Auto) 86.1 H Lymph % (Auto) 6.1 L Stanton % (Auto) 4.4 Eos % (Auto) 0.7 Baso % (Auto) 1.1 Lymph # (Auto) 1.20 Stanton # (Auto) 0.9 H Eos # (Auto) 0.1 Baso # (Auto) 0.2 H Abs Immat Gran (auto) 0.32 H Absolute Neuts (auto) 16.9 H Absolute Nucleated RBC 0.000 Nucleated RBC % 0.0 Sodium 135 L Potassium 4.6 Chloride 101 Carbon Dioxide 26 Anion Gap 8 BUN 20 Creatinine 1.32 H Estim Creat Clear Calc 64 Estimated GFR 53 L Glucose 164 H Calcium 8.5 Quality VTE Prophylaxis VTE prophylaxis: pharmacologic ordered
[2025-10-16 14:28] VITALS: BP 120/70; PULSE 92; RESP 20; TEMP 36.2; O2SAT 91
--- OUTSIDE RECORDS SUMMARY | 2025-10-16 16:53 | XMS_ITS | Clinical Summary ---
Author Organization [facility], formerly [facility] Building A Address [address] [place] [address] Care Team Providers Care Agronomy Instructor Name Role Phone Dale Funes MD Unavailable [phone] Dale Funes MD Primary Care Provider [phone] Allergies No known active allergies Medications allopurinol [...] evening 3 06/11/20 19 Active calcium carbonate ([id number]) 1,250 MG (500 mg of elemental calcium) [...] Active cholecalciferol (VITAMIN D-3) 50,000 unit capsule 48338 UNIT ORALLY WEEKLY 12/18/19 23 Active DULoxetine [...] Knee Surgery - (Added by TW Conv) AK RPR UMBILICAL HERNIA < 5 YRS REDUCIBLE Umbilical Hernia Repair - (Added by TW Conv) [place] ARTHRD ANT INTERBODY MIN DSC CRV [...] on file 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 Gender Identity Not on file Sexual [...] 01/22/2018, 12/11/2017 Medical Devices Implanted Type Area Import Clerk Device Identifier Shelf Expiration Date Model / Serial / Lot Conmed Kathleen Conmed 11mm Duraclip [id number] - [id number] Implanted:Qty: 1 on 03/10/2023 by Rosario Bravo MD at [facility] Conmed Kathleen 11/12/2024 [id number] / / [id number] Conmed Kathleen Conmed 11mm Duraclip [id number] - [id number] Implanted:Qty: 1 on 03/10/2023 by Rosario Bravo MD at [facility] Conmed Kathleen 11/12/2024 [id number] / / [id number] Insurance MEDICARE [facility] Address: [address] [address] [facility] MEDICARE [facility] MEDICARE [facility] COMPENSATION GENERIC Advance Directives For more information, please contact: [phone] * Full Code (Latest Code Status on File) Date Activated Date Inactivated Comments 03/10/2023 7:16 AM 03/10/2023 1:30 PM Care Teams Agronomy Instructor Relationship Specialty Start Date End Date Dale Funes MD [address] [address] PCP - General Family Medicine 03/07/23 Dale Funes MD [address] [address] 06/25/19
--- OUTSIDE RECORDS SUMMARY | 2025-10-16 16:53 | XMS_ITS | Clinical Summary ---
Author Organization [facility] Address [address] [address] Phone Care Team Providers Care Furnace Roaster Name Role Phone Dale Funes MD Primary [...] 2004 Influenza Immunization (#1) 2025 SARS-COV-2 Immunization (1 - 2024-26 season) 2025 Respiratory Syncytial Virus (RSV) Immunization (Adult) (1 - 1-dose 75+ series) 2029 Hepatitis B Immunization Aged Out No longer eligible based on patient's age to complete this topic Human Papillomavirus (HPV) Immunization (No Doses Required) Completed Meningococcal Immunization (ACWY) Aged Out No longer eligible based on patient's age to complete this topic Rotavirus Immunization Aged Out No lo nger eligible based on patient's age to complete this topic Insurance [facility] MEDICARE Care Teams Furnace Roaster Relationship Specialty Start Date End Date Dale Funes MD [address] [address] PCP - General Family Medicine 11/17/16
[2025-10-16 17:47] VITALS: BP 137/63; PULSE 83; RESP 20; TEMP 36.7; O2SAT 94
[2025-10-16] MEDS: ROSUVASTATIN 20 MG TABLET PO (20:46)
[2025-10-16 21:30] VITALS: BP 115/54; PULSE 60; RESP 16; TEMP 36.9; O2SAT 93
[2025-10-17 05:39] VITALS: BP 117/63; PULSE 59; RESP 14; TEMP 36.2; O2SAT 93
[2025-10-17] MEDS: LEVOTHYROXINE SODIUM 100 MCG TABLET PO (06:27)
[2025-10-17] MEDS: oxyCODONE/ACETAMINOPHEN (*CRX) 10-325 MG TABLET 1 TAB PO ×2 (06:27→20:45)
--- NOTE | 2025-10-17 06:53 | PC.NURSE ---
PT. is unable to stand without excessive bleeding from what appears to be a puncture site adjacent to the surgical incision on the left knee. the dressing was changed and pressure was applied to stop the bleeding with both attempts to walk to the bathroom.
[2025-10-17] MEDS: VITAMIN E 400 UNIT CAPSULE PO (08:58)
[2025-10-17] MEDS: FAMOTIDINE 20 MG TABLET PO ×2 (08:59→20:46)
[2025-10-17] MEDS: metFORMIN HCL XR 500 MG TAB.SR.24H 1000 MG PO ×2 (08:59→17:22)
[2025-10-17] MEDS: FERROUS SULFATE 325 MG TABLET PO (08:59)
[2025-10-17] MEDS: SENNA/DOCUSATE SODIUM TABLET 2 TAB PO ×2 (08:59→17:22)
[2025-10-17] MEDS: PANTOPRAZOLE 40 MG TABLET PO (08:59)
[2025-10-17] MEDS: MULTIVITAMINS THERAPEUTIC TAB (*BKC) 1 TABLET PO (08:59)
[2025-10-17] MEDS: ASPIRIN 81 MG ENTERIC TABLET PO ×2 (08:59→20:45)
[2025-10-17] MEDS: CALCIUM CARBONATE (OSCAL) 500 MG TABLET PO (08:59)
[2025-10-17] MEDS: SENNOSIDES 8.6 MG TABLET PO (09:00)
--- NOTE | 2025-10-17 09:25 | PCOTNOTE ---
Patient unable to have OT treatment session this A.M. Patient having continued bleeding from his Left LE, MD is coming to see him, Patient is in bed with Left LE elevated. RN present
[2025-10-17 09:52] LABS: Hematocrit 32.9 % (42.0-52.0); Hemoglobin 10.3 g/dL (14.0-18.0); Immature Granulocyte Percent A 2.3 % (0-0.5); Lymphocytes Absolute Auto 1.08 K/mm3 (0.9-3.2); Mean Corpuscular HGB Conc 31.3 g/dl (32-36); Mean Corpuscular Hemoglobin 29.7 pg (26-34); Mean Corpuscular Volume 94.8 fl (80-100); Nucleated Red Blood Cells Absolute Auto 0.000 K/mm3 (0.0-0.012); Nucleated Red Blood Cells Perc 0.0 % (0.0-0.2); Platelet Count Result 268 k/mm3 (150-375); Red Blood Count 3.47 M/mm3 (4.6-6.20); White Blood Count 15.5 K/mm3 (4.5-10.0)
[2025-10-17 10:10] LABS: Anion Gap 6 mmol/L (4-12); Blood Urea Nitrogen 23 mg/dL (9-20); Calcium 9.1 mg/dL (8.4-10.2); Carbon Dioxide 25 mmol/L (22-30); Chloride 101 mmol/L (98-107); Estimated CRCL calculation 70 ml/min; Estimated Glomerular Filt Rate 59; Glucose 191 mg/dL (65-110); Potassium 4.9 mmol/L (3.4-5.0); Sodium 132 mmol/L (137-145)
--- NOTE | 2025-10-17 12:48 | P.PNOP_ITS ---
Progress Note: A&P Assessment and Plan (1) S/P total knee arthroplasty: Qualifiers: Laterality: left Qualified Code(s): Z96.652 - Presence of left artificial knee joint Code(s): Z96.659 - Presence of unspecified artificial knee joint Status: Acute Assessment and Plan: POD #2: Left TKA Continue PT/OT. WBAT. Walker. HIGH FALL RISK. Continue pain control. Ice Knee. Protect skin. DVT prophylaxis with 81mg Aspirin PO BID. SCDs. Incentive Spirometry Use reviewed. Monitor Dressing. Changed today. Continued drainage. Dr. Light aware. Plans for reevaluation by Dr. Gomez. Bowel Regimen. Dispo: Home with Home Health pending progress with PT/OT and slowed incisional drainage. Plan Reviewed history, exam, radiographs and current labs with attending MD and covering surgeon, Dr. Light, who agrees with current plan as indicated above. No further recommendations from Dr. Light at this time. Subjective Subjective Date/Time Seen: 10/17/25 12:48 Post Op day: 1 Interval history: POD #2: Left TKA Patient doing well. Complains of pain when up with PT and OT. Continued drainage of the left medial incision. Large midline TKA incision well approximated. Review of Systems Review of Systems: All systems reviewed & are unremarkable except as noted in HPI and below Constitutional: Constitutional: Denies fever(s) and Denies headache(s) ENT: Denies headache(s) Cardiovascular: Cardiovascular: Denies chest pain, Denies diaphoresis, Denies palpitations and Denies dyspnea Respiratory: Respiratory: Denies dyspnea Gastrointestinal: Gastrointestinal: Denies abdominal pain, Denies constipation, Denies nausea and Denies vomiting Genitourinary: Genitourinary: Denies dysuria and Reports nocturia Musculoskeletal: Musculoskeletal: Reports arthralgias (Left Knee ), Reports joint swelling (Left Knee ) and Reports limited range of motion (ROM limited due to recent surgical intervention LEFT Knee ) Neurologic: Denies headache(s) Endocrine: Endocrine: Denies palpitations Exam Const: General: comfortable and no acute distress Resp: Effort & Inspection: normal respiratory effort Cardio: Rate: regular rate Rhythm: regular rhythm GI: GI Palp: Yes Soft to palpation, No Tenderness to palpation present (GI) and No Guarding due to palpation present (GI) Skin: General skin exam: wounds noted (see extremity assessment ) Wounds: wounds noted (see extremity assessment ) Neuro: Cognition (Neuro): normal cognition Other: NV intact aside from block. Moves toes. Sensation intact to light touch. +ankle dorsiflexion/plantarflexion. Extrem: Left lower extremity: normal to inspection, normal capillary refill, knee Details: tenderness (diffuse ) Location: of the patella, swelling (moderate consistent to recent surgery ), abnormal ROM (limited due to recent surgery ) Details: pain with active ROM and pain with passive ROM and ecchymosis (as expected with recent surgery. NO hematoma. ), lower leg (Negative Azam's Sign ), ankle (+ankle dorsiflexion/plantarflexion ) Details: normal to inspection, no edema and normal ROM; no tenderness and no swelling and foot Details: normal capillary refill, toes with normal ROM, vascular exam Details: dorsalis pedis pulse present and motor-sensory exam light-touch normal; no tenderness Other: Incision left TKA dressing c/d/i. No hematoma. No signs of infection. No wound dehiscence. Small incision medial to the TKA main incision with drianage. Serous in nature. Psych: Mental Status: mental status grossly normal Objective Data Vital Signs Vital Signs: Vital Signs - 24 hr 10/16/25 14:28 10/16/25 17:47 10/16/25 21:30 Temperature 36.2 C L 36.7 C 36.9 C Pulse Rate 92 83 60 Respiratory Rate 20 20 16 Blood Pressure 120/70 137/63 115/54 L Pulse Oximetry 91 94 93 Oxygen Delivery 10/17/25 05:39 10/17/25 08:00 Temperature 36.2 C L Pulse Rate 59 L Respiratory Rate 14 Blood Pressure 117/63 Pulse Oximetry 93 Oxygen Delivery Room Air Intake/Output Intake/Output: Intake & Output 10/14/25 10/15/25 10/16/25 10/17/25 23:59 23:59 23:59 23:59 Intake Total 530 1680 360 Balance 530 1680 360 Meds/Results Medications: Active Medications Generic Name Dose Route Start Last Admin Trade Name Freq PRN Reason Stop Dose Admin Acetaminophen 500 mg 10/15/25 12:43 Acetaminophen 500 Mg Tablet PO Q6H PRN Pain Rated 1-3 Allopurinol 300 mg 10/16/25 09:00 10/17/25 08:59 Allopurinol 300 Mg Tablet PO 300 mg QAM TAMMY Administration Amlodipine Besylate 10 mg 10/16/25 09:00 10/17/25 08:59 Amlodipine Besylate 10 Mg Tablet PO 10 mg DAILY TAMMY Administration Aspirin 81 mg 10/15/25 21:00 10/17/25 08:59 Aspirin 81 Mg Enteric Tablet PO 81 mg Q12HR TAMMY Administration Calcium Carbonate 500 mg 10/16/25 09:00 10/17/25 08:59 Calcium Carbonate (Oscal) 500 Mg Tablet PO 500 mg QAM TAMMY Administration Cyclobenzaprine HCl 10 mg 10/15/25 12:43 10/15/25 14:50 Cyclobenzaprine Hcl 10 Mg Tablet PO 10 mg HS PRN Administration Muscle Spasm Diazepam 5 mg 10/15/25 12:43 Diazepam (*Crx) 5 Mg Tablet PO Q8H PRN Spasms Diphenhydramine HCl 25 mg 10/15/25 12:43 Diphenhydramine Hcl Inj 50 Mg/Ml Vial IV PUSH Q6H PRN Itching Duloxetine HCl 30 mg 10/16/25 09:00 10/17/25 08:59 Duloxetine Hcl 30 Mg Capsule.Dr PO 30 mg DAILY [facility] Administration Ergocalciferol 1,250 mcg 10/19/25 09:00 Ergocalciferol (Vitamin D2) 1,250 Mcg (50,000 Units) Capsule PO Vera@0900 [facility] Famotidine 20 mg 10/15/25 21:00 10/17/25 08:59 Famotidine 20 Mg Tablet PO 20 mg Q12HR TAMMY Administration Ferrous Sulfate 325 mg 10/16/25 09:00 10/17/25 08:59 Ferrous Sulfate 325 Mg Tablet PO 325 mg DAILY [facility] Administration Hydromorphone HCl 1 mg 10/15/25 12:43 10/15/25 20:41 Hydromorphone Hcl Inj (*Crx) 1 Mg/Ml Syr IV PUSH 1 mg Q2H PRN Administration Breakthrough Pain Rated 7-10 or NPO Hydromorphone HCl 0.5 mg 10/15/25 12:43 Hydromorphone Hcl Inj (*Crx) 1 Mg/Ml Syr IV PUSH Q2H PRN Breakthrough Pain Rated 4-6 or NPO Ibuprofen 800 mg in 200 mls @ 400 mls/hr 10/15/25 13:06 Caldolor 800 Mg/200 Ml IVPB Q6H PRN Breakthrough Pain Rated 1-3 or NPO Levothyroxine Sodium 100 mcg 10/16/25 06:30 10/17/25 06:27 Levothyroxine Sodium 100 Mcg Tablet PO 100 mcg DAILY@0630 TAMMY Administration Lidocaine 2 patch 10/15/25 13:03 Lidocaine 5% Patch TRANSDERM DAILY PRN pain Lisinopril 40 mg 10/16/25 09:00 10/17/25 08:59 Lisinopril 20 Mg Tablet PO 40 mg DAILY TAMMY Administration Metformin HCl 1,000 mg 10/15/25 17:00 10/17/25 08:59 Metformin Hcl Xr 500 Mg Tab.Sr.24h PO 1,000 mg BIDWM TAMMY Administration Multivitamins Therapeutic 1 tablet 10/16/25 09:00 10/17/25 08:59 Multivitamins Therapeutic Tab (*Bkc) PO 1 tablet QAM TAMMY Administration Naloxone HCl 0.1 mg 10/15/25 12:43 Naloxone Hcl 0.4 Mg/Ml Vial IV PUSH Q2M PRN Opiate Reversal Ondansetron HCl 4 mg 10/15/25 12:43 Ondansetron Inj 4 Mg/2 Ml Vial IV PUSH Q4H PRN Nausea And Vomiting Oxycodone/Acetaminophen 1 tablet 10/15/25 12:43 10/15/25 21:38 Oxycodone/Acetaminophen (*Crx) 5-325 Mg Tablet PO 1 tablet Q4H PRN Administration Pain Rated 4-6 Oxycodone/Acetaminophen 1 tab 10/15/25 12:43 10/17/25 06:27 Oxycodone/Acetaminophen (*Crx) 10-325 Mg Tablet PO 1 tab Q6H PRN Administration Pain Rated 7-10 Pantoprazole Sodium 40 mg 10/16/25 09:00 10/17/25 08:59 Pantoprazole 40 Mg Tablet PO 40 mg QAM TAMMY Administration Polyethylene Glycol 17 gm 10/16/25 09:00 10/17/25 09:00 Polyethylene Glycol 3350 17 Gm Powd.Pack PO 17 gm QAM TAMMY Administration Ropinirole HCl 0.25 mg 10/15/25 21:00 10/17/25 08:59 Ropinirole Hcl 0.25 Mg Tablet PO 0.25 mg Q12HR TAMMY Administration Rosuvastatin Calcium 20 mg 10/15/25 21:00 10/16/25 20:46 Rosuvastatin 20 Mg Tablet PO 20 mg QHS TAMMY Administration Senna 8.6 mg 10/16/25 09:00 10/17/25 09:00 Sennosides 8.6 Mg Tablet PO 8.6 mg DAILY TAMMY Administration Senna/Docusate Sodium 2 tab 10/15/25 17:00 10/17/25 08:59 Senna/Docusate Sodium Tablet PO 2 tab BID TAMMY Administration Triamcinolone Acetonide 1 applic 10/15/25 12:43 Triamcinolone Acet 0.5% Cream 15 Gm Tube TOPICAL BID PRN Dry Skin Vitamin E 400 unit 10/16/25 09:00 10/17/25 08:58 Vitamin E 400 Unit Capsule PO 400 unit DAILY TAMMY Administration Radiology Results: ITS Impressions Knee X-Ray 10/15/25 11:54 Impression: No acute fracture or malalignment. Labs Labs: Laboratory Results - last 24 hr 10/17/25 09:43 WBC 15.5 H RBC 3.47 L Hgb 10.3 L Hct 32.9 L MCV 94.8 MCH 29.7 MCHC 31.3 L RDW 14.4 Plt Count 268 MPV 10.7 H Immature Gran % (Auto) 2.3 H Neut % (Auto) 83.8 H Lymph % (Auto) 7.0 L Forrest % (Auto) 5.4 Eos % (Auto) 0.3 Baso % (Auto) 1.2 Lymph # (Auto) 1.08 Forrest # (Auto) 0.8 H Eos # (Auto) 0.1 Baso # (Auto) 0.2 H Abs Immat Gran (auto) 0.35 H Absolute Neuts (auto) 13.0 H Absolute Nucleated RBC 0.000 Nucleated RBC % 0.0 Sodium 132 L Potassium 4.9 Chloride 101 Carbon Dioxide 25 Anion Gap 6 BUN 23 H Creatinine 1.21 Estim Creat Clear Calc 70 Estimated GFR 59 Glucose 191 H Calcium 9.1
--- NOTE | 2025-10-17 12:50 | PC.NURSE ---
spoke with Dr. Light about incision care, he stated that he will reinforce the bandage and wrap it with emi wrap and to not remove it even if it becomes saturated.
[2025-10-17 13:21] VITALS: BP 137/81; PULSE 93; RESP 18; TEMP 37; O2SAT 96
[2025-10-17 19:29] VITALS: BP 114/63; PULSE 69; RESP 20; TEMP 37.7; O2SAT 93
[2025-10-17 20:00] VITALS: O2SAT 97
[2025-10-17] MEDS: ROSUVASTATIN 20 MG TABLET PO (20:45)
[2025-10-17 22:21] VITALS: O2SAT 97
[2025-10-18 03:25] VITALS: BP 134/54; PULSE 71; RESP 20; TEMP 36.2; O2SAT 95
[2025-10-18 03:50] VITALS: O2SAT 96
[2025-10-18] MEDS: LEVOTHYROXINE SODIUM 100 MCG TABLET PO (06:03)
[2025-10-18] MEDS: PANTOPRAZOLE 40 MG TABLET PO (08:17)
[2025-10-18] MEDS: CALCIUM CARBONATE (OSCAL) 500 MG TABLET PO (08:17)
[2025-10-18] MEDS: metFORMIN HCL XR 500 MG TAB.SR.24H 1000 MG PO (08:17)
[2025-10-18] MEDS: FAMOTIDINE 20 MG TABLET PO (08:18)
[2025-10-18] MEDS: ASPIRIN 81 MG ENTERIC TABLET PO (08:18)
[2025-10-18] MEDS: VITAMIN E 400 UNIT CAPSULE PO (08:18)
[2025-10-18] MEDS: SENNOSIDES 8.6 MG TABLET PO (08:18)
[2025-10-18] MEDS: SENNA/DOCUSATE SODIUM TABLET 2 TAB PO (08:19)
[2025-10-18] MEDS: MULTIVITAMINS THERAPEUTIC TAB (*BKC) 1 TABLET PO (08:19)
[2025-10-18] MEDS: FERROUS SULFATE 325 MG TABLET PO (08:19)
[2025-10-18] MEDS: oxyCODONE/ACETAMINOPHEN (*CRX) 10-325 MG TABLET 1 TAB PO (08:32)
--- NOTE | 2025-10-18 10:44 | P.PNOP_ITS ---
Progress Note: A&P Assessment and Plan (1) S/P total knee arthroplasty: Qualifiers: Laterality: left Qualified Code(s): Z96.652 - Presence of left artificial knee joint Code(s): Z96.659 - Presence of unspecified artificial knee joint Status: Acute Assessment and Plan: POD #3: Left TKA Dressing changed. Continue PT/OT. WBAT. Walker. HIGH FALL RISK. Continue pain control. Ice Knee. Protect skin. DVT prophylaxis with 81mg Aspirin PO BID. SCDs. Incentive Spirometry Use reviewed. Monitor Dressing. Changed today. Continued drainage. Bowel Regimen. Will observe drainage for one more day. Labs in AM Dispo: Home with Home Health pending progress with PT/OT and slowed incisional drainage. Subjective Subjective Date/Time Seen: 10/18/25 10:44 Post Op day: 3 Principal diagnosis: LT knee arthritis Interval history: POD #3: Left TKA Complains of pain when up with PT and OT. Continued drainage of the left medial incision- compression dressing placed yesterday.. Large midline TKA incision well approximated. Exam Const: General: comfortable and no acute distress Resp: Effort & Inspection: normal respiratory effort Cardio: Rate: regular rate Rhythm: regular rhythm GI: GI Palp: Yes Soft to palpation, No Tenderness to palpation present (GI) and No Guarding due to palpation present (GI) Skin: General skin exam: wounds noted (see extremity assessment ) Wounds: wounds noted (see extremity assessment ) Neuro: Cognition (Neuro): normal cognition Other: NV intact aside from block. Moves toes. Sensation intact to light touch. +ankle dorsiflexion/plantarflexion. Extrem: Left lower extremity: normal to inspection, normal capillary refill, knee Details: tenderness (diffuse ) Location: of the patella, swelling (moderate consistent to recent surgery ), abnormal ROM (limited due to recent surgery ) Details: pain with active ROM and pain with passive ROM and ecchymosis (as expected with recent surgery. NO hematoma. ), lower leg (Negative Azam's Sign ), ankle (+ankle dorsiflexion/plantarflexion ) Details: normal to inspection, no edema and normal ROM; no tenderness and no swelling and foot Details: normal capillary refill, toes with normal ROM, vascular exam Details: dorsalis pedis pulse present and motor-sensory exam light-touch normal; no tenderness Other: Dressing changed. Incision left TKA clean and dry. Dressing with sanguinous drainage. No signs of infection. No wound dehiscence. Small incision medial to the TKA main incision with drianage. Serous in nature. Psych: Mental Status: mental status grossly normal Objective Data Vital Signs Vital Signs: Vital Signs - 24 hr 10/17/25 13:21 10/17/25 19:29 10/17/25 20:00 Temperature 98.6 F 99.9 F H Pulse Rate 93 69 Respiratory Rate 18 20 Blood Pressure 137/81 114/63 Pulse Oximetry 96 93 97 Oxygen Delivery CPAP 10/17/25 22:21 10/18/25 03:25 10/18/25 03:50 Temperature 97.2 F L Pulse Rate 71 Respiratory Rate 20 Blood Pressure 134/54 L Pulse Oximetry 97 95 96 Oxygen Delivery Autopap Autopap Intake/Output Intake/Output: Intake & Output 10/15/25 10/16/25 10/17/25 10/18/25 23:59 23:59 23:59 23:59 Intake Total 530 6898 232 1728 Output Total 1100 Balance 530 1680 600 576 Meds/Results Medications: Active Medications Generic Name Dose Route Start Last Admin Trade Name Freq PRN Reason Stop Dose Admin Acetaminophen 500 mg 10/15/25 12:43 Acetaminophen 500 Mg Tablet PO Q6H PRN Pain Rated 1-3 Allopurinol 300 mg 10/16/25 09:00 10/18/25 08:19 Allopurinol 300 Mg Tablet PO 300 mg QAM TAMMY Administration Amlodipine Besylate 10 mg 10/16/25 09:00 10/18/25 08:19 Amlodipine Besylate 10 Mg Tablet PO 10 mg DAILY TAMMY Administration Aspirin 81 mg 10/15/25 21:00 10/18/25 08:18 Aspirin 81 Mg Enteric Tablet PO 81 mg Q12HR TAMMY Administration Calcium Carbonate 500 mg 10/16/25 09:00 10/18/25 08:17 Calcium Carbonate (Oscal) 500 Mg Tablet PO 500 mg QAM TAMMY Administration Cyclobenzaprine HCl 10 mg 10/15/25 12:43 10/15/25 14:50 Cyclobenzaprine Hcl 10 Mg Tablet PO 10 mg HS PRN Administration Muscle Spasm Diazepam 5 mg 10/15/25 12:43 Diazepam (*Crx) 5 Mg Tablet PO Q8H PRN Spasms Diphenhydramine HCl 25 mg 10/15/25 12:43 Diphenhydramine Hcl Inj 50 Mg/Ml Vial IV PUSH Q6H PRN Itching Duloxetine HCl 30 mg 10/16/25 09:00 10/18/25 08:18 Duloxetine Hcl 30 Mg Capsule.Dr PO 30 mg DAILY TAMMY Administration Ergocalciferol 1,250 mcg 10/19/25 09:00 Ergocalciferol (Vitamin D2) 1,250 Mcg (50,000 Units) Capsule PO Vera@0900 TAMMY Famotidine 20 mg 10/15/25 21:00 10/18/25 08:18 Famotidine 20 Mg Tablet PO 20 mg Q12HR TAMMY Administration Ferrous Sulfate 325 mg 10/16/25 09:00 10/18/25 08:19 Ferrous Sulfate 325 Mg Tablet PO 325 mg DAILY [facility] Administration Hydromorphone HCl 1 mg 10/15/25 12:43 10/15/25 20:41 Hydromorphone Hcl Inj (*Crx) 1 Mg/Ml Syr IV PUSH 1 mg Q2H PRN Administration Breakthrough Pain Rated 7-10 or NPO Hydromorphone HCl 0.5 mg 10/15/25 12:43 Hydromorphone Hcl Inj (*Crx) 1 Mg/Ml Syr IV PUSH Q2H PRN Breakthrough Pain Rated 4-6 or NPO Ibuprofen 800 mg in 200 mls @ 400 mls/hr 10/15/25 13:06 Caldolor 800 Mg/200 Ml IVPB Q6H PRN Breakthrough Pain Rated 1-3 or NPO Levothyroxine Sodium 100 mcg 10/16/25 06:30 10/18/25 06:03 Levothyroxine Sodium 100 Mcg Tablet PO 100 mcg DAILY@0630 [facility] Administration Lidocaine 2 patch 10/15/25 13:03 Lidocaine 5% Patch TRANSDERM DAILY PRN pain Lisinopril 40 mg 10/16/25 09:00 10/18/25 08:18 Lisinopril 20 Mg Tablet PO 40 mg DAILY [facility] Administration Metformin HCl 1,000 mg 10/15/25 17:00 10/18/25 08:17 Metformin Hcl Xr 500 Mg Tab.Sr.24h PO 1,000 mg BIDWM [facility] Administration Multivitamins Therapeutic 1 tablet 10/16/25 09:00 10/18/25 08:19 Multivitamins Therapeutic Tab (*Bkc) PO 1 tablet QAM TAMMY Administration Naloxone HCl 0.1 mg 10/15/25 12:43 Naloxone Hcl 0.4 Mg/Ml Vial IV PUSH Q2M PRN Opiate Reversal Ondansetron HCl 4 mg 10/15/25 12:43 Ondansetron Inj 4 Mg/2 Ml Vial IV PUSH Q4H PRN Nausea And Vomiting Oxycodone/Acetaminophen 1 tablet 10/15/25 12:43 10/15/25 21:38 Oxycodone/Acetaminophen (*Crx) 5-325 Mg Tablet PO 1 tablet Q4H PRN Administration Pain Rated 4-6 Oxycodone/Acetaminophen 1 tab 10/15/25 12:43 10/18/25 08:32 Oxycodone/Acetaminophen (*Crx) 10-325 Mg Tablet PO 1 tab Q6H PRN Administration Pain Rated 7-10 Pantoprazole Sodium 40 mg 10/16/25 09:00 10/18/25 08:17 Pantoprazole 40 Mg Tablet PO 40 mg QAM TAMMY Administration Polyethylene Glycol 17 gm 10/16/25 09:00 10/18/25 08:19 Polyethylene Glycol 3350 17 Gm Powd.Pack PO 17 gm QAM TAMMY Administration Ropinirole HCl 0.25 mg 10/15/25 21:00 10/18/25 08:19 Ropinirole Hcl 0.25 Mg Tablet PO 0.25 mg Q12HR TAMMY Administration Rosuvastatin Calcium 20 mg 10/15/25 21:00 10/17/25 20:45 Rosuvastatin 20 Mg Tablet PO 20 mg QHS TAMMY Administration Senna 8.6 mg 10/16/25 09:00 10/18/25 08:18 Sennosides 8.6 Mg Tablet PO 8.6 mg DAILY TAMMY Administration Senna/Docusate Sodium 2 tab 10/15/25 17:00 10/18/25 08:19 Senna/Docusate Sodium Tablet PO 2 tab BID TAMMY Administration Triamcinolone Acetonide 1 applic 10/15/25 12:43 Triamcinolone Acet 0.5% Cream 15 Gm Tube TOPICAL BID PRN Dry Skin Vitamin E 400 unit 10/16/25 09:00 10/18/25 08:18 Vitamin E 400 Unit Capsule PO 400 unit DAILY TAMMY Administration Radiology Results: ITS Impressions Knee X-Ray 10/15/25 11:54 Impression: No acute fracture or malalignment.
[2025-10-18 14:00] VITALS: BP 143/64; PULSE 66; RESP 18; TEMP 36.7; O2SAT 98
--- NOTE | 2025-10-18 14:40 | P.PNOP_ITS ---
Progress Note: A&P Assessment and Plan (1) S/P total knee arthroplasty: Qualifiers: Laterality: left Qualified Code(s): Z96.652 - Presence of left artificial knee joint Code(s): Z96.659 - Presence of unspecified artificial knee joint Status: Acute Assessment and Plan: POD 3 DOING WELL. NO CONTINUOS DISCHARGE, NO SIGN OF INFECTION. OK TO DC HOME WITH HOME HEALTH. HE WILL F/U IN 3 WEEKS. Subjective Subjective Date/Time Seen: 10/18/25 14:40 Interval history: POD 3 DOING WELL. PAIN WELL CONTROLLED. DRESSING CHANGE EARLIER REVEALED SEROSANGUINEOUS DISCHARGE AND NO ACTIVE BLEEDING. DRESSING REPLACED. 4 HOURS LATER DRESSING CHANGED. MINIMAL SEROSANGUINEOUS DISCHARGE, NO HEMATOMA. NO ACTIVE BLEEDING.NO DISCHARGE OF FLUID WITH ACTIVE FLEXION AND EXTENSION. WOUND REDRESSED WITH COMPRESSION DRESSING. NO CALF PAIN Exam Extrem: Other: VSS AFEBRILE DRESSING WITH MINIMAL SEROSANGUINEOUS DISCHARGE NV INTACT CALF AND THIGH SOFT NON TENDER, NEG HOMANS SIGN Objective Data Vital Signs Vital Signs: Vital Signs - 24 hr 10/17/25 19:29 10/17/25 20:00 10/17/25 22:21 Temperature 37.7 C H Pulse Rate 69 Respiratory Rate 20 Blood Pressure 114/63 Pulse Oximetry 93 97 97 Oxygen Delivery CPAP Autopap 10/18/25 03:25 10/18/25 03:50 Temperature 36.2 C L Pulse Rate 71 Respiratory Rate 20 Blood Pressure 134/54 L Pulse Oximetry 95 96 Oxygen Delivery Autopap Intake/Output Intake/Output: Intake & Output 10/15/25 10/16/25 10/17/25 10/18/25 23:59 23:59 23:59 23:59 Intake Total 530 3849 508 0339 Output Total 1100 Balance 530 1680 600 816 Meds/Results Medications: Active Medications Generic Name Dose Route Start Last Admin Trade Name Freq PRN Reason Stop Dose Admin Acetaminophen 500 mg 10/15/25 12:43 Acetaminophen 500 Mg Tablet PO Q6H PRN Pain Rated 1-3 Allopurinol 300 mg 10/16/25 09:00 10/18/25 08:19 Allopurinol 300 Mg Tablet PO 300 mg QAM TAMMY Administration Amlodipine Besylate 10 mg 10/16/25 09:00 10/18/25 08:19 Amlodipine Besylate 10 Mg Tablet PO 10 mg DAILY TAMMY Administration Aspirin 81 mg 10/15/25 21:00 10/18/25 08:18 Aspirin 81 Mg Enteric Tablet PO 81 mg Q12HR TAMMY Administration Calcium Carbonate 500 mg 10/16/25 09:00 10/18/25 08:17 Calcium Carbonate (Oscal) 500 Mg Tablet PO 500 mg QAM TAMMY Administration Cyclobenzaprine HCl 10 mg 10/15/25 12:43 10/15/25 14:50 Cyclobenzaprine Hcl 10 Mg Tablet PO 10 mg HS PRN Administration Muscle Spasm Diazepam 5 mg 10/15/25 12:43 Diazepam (*Crx) 5 Mg Tablet PO Q8H PRN Spasms Diphenhydramine HCl 25 mg 10/15/25 12:43 Diphenhydramine Hcl Inj 50 Mg/Ml Vial IV PUSH Q6H PRN Itching Duloxetine HCl 30 mg 10/16/25 09:00 10/18/25 08:18 Duloxetine Hcl 30 Mg Capsule.Dr PO 30 mg DAILY [facility] Administration Ergocalciferol 1,250 mcg 10/19/25 09:00 Ergocalciferol (Vitamin D2) 1,250 Mcg (50,000 Units) Capsule PO Vera@0900 [facility] Famotidine 20 mg 10/15/25 21:00 10/18/25 08:18 Famotidine 20 Mg Tablet PO 20 mg Q12HR [facility] Administration Ferrous Sulfate 325 mg 10/16/25 09:00 10/18/25 08:19 Ferrous Sulfate 325 Mg Tablet PO 325 mg DAILY [facility] Administration Hydromorphone HCl 1 mg 10/15/25 12:43 10/15/25 20:41 Hydromorphone Hcl Inj (*Crx) 1 Mg/Ml Syr IV PUSH 1 mg Q2H PRN Administration Breakthrough Pain Rated 7-10 or NPO Hydromorphone HCl 0.5 mg 10/15/25 12:43 Hydromorphone Hcl Inj (*Crx) 1 Mg/Ml Syr IV PUSH Q2H PRN Breakthrough Pain Rated 4-6 or NPO Ibuprofen 800 mg in 200 mls @ 400 mls/hr 10/15/25 13:06 Caldolor 800 Mg/200 Ml IVPB Q6H PRN Breakthrough Pain Rated 1-3 or NPO Levothyroxine Sodium 100 mcg 10/16/25 06:30 10/18/25 06:03 Levothyroxine Sodium 100 Mcg Tablet PO 100 mcg DAILY@0630 TAMMY Administration Lidocaine 2 patch 10/15/25 13:03 Lidocaine 5% Patch TRANSDERM DAILY PRN pain Lisinopril 40 mg 10/16/25 09:00 10/18/25 08:18 Lisinopril 20 Mg Tablet PO 40 mg DAILY TAMMY Administration Metformin HCl 1,000 mg 10/15/25 17:00 10/18/25 08:17 Metformin Hcl Xr 500 Mg Tab.Sr.24h PO 1,000 mg BIDWM TAMMY Administration Multivitamins Therapeutic 1 tablet 10/16/25 09:00 10/18/25 08:19 Multivitamins Therapeutic Tab (*Bkc) PO 1 tablet QAM TAMMY Administration Naloxone HCl 0.1 mg 10/15/25 12:43 Naloxone Hcl 0.4 Mg/Ml Vial IV PUSH Q2M PRN Opiate Reversal Ondansetron HCl 4 mg 10/15/25 12:43 Ondansetron Inj 4 Mg/2 Ml Vial IV PUSH Q4H PRN Nausea And Vomiting Oxycodone/Acetaminophen 1 tablet 10/15/25 12:43 10/15/25 21:38 Oxycodone/Acetaminophen (*Crx) 5-325 Mg Tablet PO 1 tablet Q4H PRN Administration Pain Rated 4-6 Oxycodone/Acetaminophen 1 tab 10/15/25 12:43 10/18/25 08:32 Oxycodone/Acetaminophen (*Crx) 10-325 Mg Tablet PO 1 tab Q6H PRN Administration Pain Rated 7-10 Pantoprazole Sodium 40 mg 10/16/25 09:00 10/18/25 08:17 Pantoprazole 40 Mg Tablet PO 40 mg QAM TAMMY Administration Polyethylene Glycol 17 gm 10/16/25 09:00 10/18/25 08:19 Polyethylene Glycol 3350 17 Gm Powd.Pack PO 17 gm QAM TAMMY Administration Ropinirole HCl 0.25 mg 10/15/25 21:00 10/18/25 08:19 Ropinirole Hcl 0.25 Mg Tablet PO 0.25 mg Q12HR TAMMY Administration Rosuvastatin Calcium 20 mg 10/15/25 21:00 10/17/25 20:45 Rosuvastatin 20 Mg Tablet PO 20 mg QHS TAMMY Administration Senna 8.6 mg 10/16/25 09:00 10/18/25 08:18 Sennosides 8.6 Mg Tablet PO 8.6 mg DAILY TAMMY Administration Senna/Docusate Sodium 2 tab 10/15/25 17:00 10/18/25 08:19 Senna/Docusate Sodium Tablet PO 2 tab BID TAMMY Administration Triamcinolone Acetonide 1 applic 10/15/25 12:43 Triamcinolone Acet 0.5% Cream 15 Gm Tube TOPICAL BID PRN Dry Skin Vitamin E 400 unit 10/16/25 09:00 10/18/25 08:18 Vitamin E 400 Unit Capsule PO 400 unit DAILY TAMMY Administration Radiology Results: ITS Impressions Knee X-Ray 10/15/25 11:54 Impression: No acute fracture or malalignment.
--- NOTE | 2025-10-18 14:46 | P.DS_ITS ---
DS: Admitting Diagnosis Discharge Date 10/18/25 Admitting Diagnosis LEFT KNEE DJD DS: Discharge Diagnosis Discharge Diagnosis (1) S/P total knee arthroplasty: Qualifiers: Laterality: left Qualified Code(s): Z96.652 - Presence of left artificial knee joint Code(s): Z96.659 - Presence of unspecified artificial knee joint Status: Acute DS: Summary Hospital Course Reason for hospitalization: LEFT TKA Hospital Course: PATIENT WAS ADMITTED S/P TOTAL KNEE ARTHROPLASTY FOR POSTOPERATIVE MEDICAL MANAGEMENT, PAIN CONTROL AND MOBILIZATION WITH PHYSICAL AND OCCUPATIONAL THERAPY. THE PATIENT PROGRESSED WELL WITH PT/OT. LABS AND VITALS REMAINED STABLE AND PAIN WELL CONTROLLED. THE PATIENT HAS BEEN CLEARED TO BE DISCHARGED HOME. FOLLOW UP APPOINTMENT SCHEDULED. DISCHARGE INSTRUCTIONS DISCUSSED AT LENGTH WITH THE PATIENT. MEDICATIONS REVIEWED. Status at Discharge Cognitive/behavioral status at discharge: STABLE Time Spent with Patient Time attestation: Total time spent providing and/or coordinating discharge services: Discharge Plan Discharge Attending physician on discharge: Oscar Light Discharging Clinician: Criss Melendez Patient Disposition: Home with Home Health Service Activity: may shower and no driving Diet: as tolerated Wound Care Instructions: follow printed instructions and keep dressing dry Discharge Instructions: Per Care Coordination: [facility] ([phone]) will call to set up initial visit. Post Op Total Knee Replacement Instructions Dr. Oscar Light [phone] * Your dressing will be changed prior to your discharge. You will be sent home with one additional dressing to be changed on post op day 7 by the home health RN. Your mary jo will be removed on the 14th day after surgery and steri- strips will be placed. Please practice good hand hygiene and do not touch your incision in order to prevent infection. * You may shower with your dressing but do not submerge in a bath tub. * Do not drive or operate machinery until you are released by Dr. Light. * Do not walk without a walker for any reason until you are released by Dr. Light. * Continue to use your ice machine. Please use a towel or pillow case to protect your skin before applying your ice machine. * Do NOT place a pillow under your knee. You may use a pillow from the calf down if needed. This will prevent a flexion contracture postoperatively. * CPM: You may begin use of your CPM machine at home if you have been given one pre-operatively. DO NOT USE WHILE YOU ARE SLEEPING. * ROMTech: If you were given a ROMTech Portable Connect System preoperatively, you are to begin use on the day you arrive home postoperatively. Our goal is for you to use the machine 5 times per day. The sessions are very short in the beginning and will progress as you progress. We are able to monitor your progress from afar as well as your pain and other reported symptoms. If you have difficulties with the machine, please call . NOTE: Please attempt to use the machine even when in pain as this will soaker helper your therapy with very gentle motion. * Your first post op appointment was sent to you via mail preoperatively. If you have any questions or are unable to make your appointment, please contact our office for scheduling questions. * Your medications have been sent to your pharmacy. You have been sent home with pain medication. Please picker and sorter load and unload an over the counter stool softener to prevent constipation due to narcotic use. Please keep this in mind during your postoperative recovery. If you are not experiencing regular bowel movements, please contact our office for further instruction. * Please contact our office with any questions/concerns regarding your knee at [phone]. Patient Instructions: Antibiotic Form Patient Language: Urdu Stand Alone Forms: General Discharge Information Follow-up/Referrals: Oscar Light MD [Physician, Orthopedics] - Keep Reg. Scheduled Appt. Discharge Medications: New oxycodone-acetaminophen 5-325 mg Tablet 1 - 2 tablet PO Q4-6H PRN (Reason: pain) Qty: 30 0RF aspirin 81 mg Tablet,Delayed Release (Dr/Ec) 81 mg PO Q12HR 28 Days Qty: 56 0RF Continued (DME) pen needle, diabetic [Novofine 32] 32 gauge x 1/4 needle See Rx Instructions .ROUTE .MEDSUPPLY Qty: 50 0RF Rx Instructions: use weekly with Ozempic (DME) OneTouch Ultra Blue Test Strip Strip See Rx Instructions .ROUTE .MEDSUPPLY Qty: 100 3RF Rx Instructions: checking blood sugar once daily (DME) lancets [OneTouch UltraSoft Lancets] [facility] [place] See Rx Instructions .ROUTE .MEDSUPPLY Qty: 100 3RF Rx Instructions: Checking Blood Sugar once daily lisinopril 40 mg tablet 40 mg PO DAILY Qty: 90 3RF amlodipine 10 mg tablet 10 mg PO DAILY lidocaine 4 % adhesive patch,medicated 2 patch topical DAILY PRN (Reason: pain) Patient Comments: apply patches to lower back for 14 hours on and 10 hours off as needed sennosides [Senokot] 8.6 mg tablet 8.6 mg PO DAILY vitamin E 268 mg (400 unit) capsule 268 mg PO DAILY rosuvastatin 20 mg tablet 20 mg PO QHS calcium carbonate 600 mg calcium (1,500 mg) tablet 1,200 mg PO QAM Patient Comments: TAKES 600MG IN AM multivitamin Tablet 1 tablet PO QAM cyanocobalamin (vitamin B-12) 1,000 mcg capsule 1,000 mcg PO QAM duloxetine [Cymbalta] 30 mg capsule,delayed release(DR/EC) 30 mg PO DAILY Qty: 90 3RF allopurinol 300 mg tablet 300 mg PO QAM Qty: 90 3RF metformin 500 mg tablet extended release 24 hr 1,000 mg PO BID Qty: 360 3RF cholecalciferol (vitamin D3) 1,250 mcg (50,000 unit) capsule 50,000 unit PO WEEKLY Qty: 12 3RF Patient Comments: TAKES ON MONDAY levothyroxine [Synthroid] 100 mcg tablet 100 mcg PO . q.a.m. Qty: 90 3RF pantoprazole 40 mg tablet,delayed release (DR/EC) 40 mg PO QAM Qty: 90 3RF ropinirole 0.25 mg tablet 0.25 mg PO BID Qty: 60 11RF triamcinolone acetonide 0.5 % cream 1 applic topical BID PRN (Reason: Dry Skin) Qty: 60 3RF Rx Instructions: apply to rash on extremities and trunk twice daily until clear but no longer than 2 weeks at a time ferrous sulfate 325 mg (65 mg iron) tablet,delayed release (DR/EC) 325 mg PO DAILY Qty: 90 3RF cyclobenzaprine 10 mg tablet 10 mg PO HS PRN (Reason: muscle spasm) Qty: 90 5RF Held aspirin [Jaya Low Dose Aspirin] 81 mg Tablet,Delayed Release (Dr/Ec) 81 mg PO HS Hold Instructions: Resume on 11/13/25. Date of admission: 10/17/25 15:24 Primary Care Provider: Dale Funes Admitting Provider: Oscar Light Attending physician on admission: Oscar Light Condition: Stable
== END 2025-10-18 15:15 | disposition home health service (06) | DRG 470 ==
LOC: ANHSURGERY 16:50 → ANH3MEDSUR 16:51
PROVIDERS: Nurse Practitioner Family; Admitting Provider Orthopaedic Surgery; PCP Family Medicine; Visit Provider Orthopaedic Surgery
PROC: 0SRD069 Replacement of Left Knee Joint with Oxidized Zirconium on Polyethylene Synthetic Substitute, Cemented, Open Approach (ICD-10-PCS; CPT 27447; principal; 2025-10-15 08:00)
DX: M17.12 Unilateral primary osteoarthritis, left knee (principal); I10 Essential (primary) hypertension; D51.9 Vitamin B12 deficiency anemia, unspecified; E11.9 Type 2 diabetes mellitus without complications; E78.2 Mixed hyperlipidemia; E55.9 Vitamin D deficiency, unspecified; E89.0 Postprocedural hypothyroidism; K58.0 Irritable bowel syndrome with diarrhea; K21.9 Gastro-esophageal reflux disease without esophagitis; M54.9 Dorsalgia, unspecified; G89.29 Other chronic pain; G25.81 Restless legs syndrome; T14.90XS Injury, unspecified, sequela; Z98.1 Arthrodesis status; Z87.891 Personal history of nicotine dependence; Z87.442 Personal history of urinary calculi; Z79.82 Long term (current) use of aspirin
CPT/HCPCS: 36415; 73560; 80048; 82948; 85025; 97110; 97116; 97161; 97166; 97530; 97535; J0690; A9270; C1713; C1776; G0378; J0166; J1171; J1885; J2250; J2270; J2405; J2704; J2795; J3010; J3290; J3373; J7120